=== PATIENT | male | born 1975 | race African-American/Black ===

== ENCOUNTER 2017-05-23 09:36 | Inpatient (IN) | payer MEDICAID ==
[~2017-05-23] VITALS: Ht 177.8 cm; Wt 40.8 kg
[2017-05-23 10:58] LABS: HEMATOCRIT 44.1 % (42.0-52.0); HEMOGLOBIN 14.2 G/DL (14.2-18.0); MEAN CORPUSCULAR VOLUME 92 FL (80-99); RED BLOOD COUNT 4.79 M/UL (4.70-6.10); RED CELL DISTRIBUTION WIDTH 11.7 % (11.6-14.8); WHITE BLOOD COUNT 4.2 K/UL (4.8-10.8)
[2017-05-23 11:11] LABS: INR 1.1 (0.9-1.1)
[2017-05-23] MEDS ORDERED: Thiamine HCl 100 MG in D5W 55 ML IVPB SCH (11:15)
--- NOTE | 2017-05-23 11:24 | Diagnostic Imaging Report ---
Indication: Chest pain Technique: XRAY CHEST 1 V Comparison: None Findings: Cardiomediastinal silhouette is within normal limits. Extensive bilateral interstitial and airspace opacities are seen. There is no pneumothorax or obvious pleural effusion. Osseous structures demonstrate no acute abnormality. Impression: Extensive bilateral interstitial and airspace infiltrates. Inflammatory and typical and atypical infectious etiology should be considered. Clinical correlation recommended.
[2017-05-23 11:28] VITALS: BP 109/70
[2017-05-23] MEDS ORDERED: Thiamine HCl 100mg/ml 2 ml Inj ONE (11:34)
[2017-05-23] MEDS ORDERED: cefTRIAXone 1 GM in NS 55 ML IVPB ONE (12:00)
[2017-05-23] MEDS ORDERED: Azithromycin 500 MG in D5W 275 ML IVPB ONE (12:00)
[2017-05-23] MEDS ORDERED: Albuterol/Ipratropium 3ml neb HHN PRN (12:15)
[2017-05-23] MEDS ORDERED: Miralax 17gm pkt ORAL PRN (12:15)
[2017-05-23] MEDS ORDERED: Morphine Sulfate 4mg/ml Inj IVP PRN (12:15)
[2017-05-23 12:36] LABS: ANION GAP 4 mmol/L (5-15); BLOOD UREA NITROGEN 24 mg/dL (7-18); CALCIUM 7.6 MG/DL (8.5-10.1); CARBON DIOXIDE 32 MMOL/L (21-32); CHLORIDE 94 MMOL/L (98-107); CREATININE 0.8 MG/DL (0.55-1.30); POTASSIUM 3.5 MMOL/L (3.5-5.1); SODIUM 130 MMOL/L (136-145)
[2017-05-23 12:48] LABS: ALANINE AMINOTRANSFERASE 13 U/L (12-78); ALBUMIN/GLOBULIN RATIO 0.2 (1.0-2.7); ALKALINE PHOSPHATASE 75 U/L (46-116); ASPARTATE AMINO TRANSFERASE 44 U/L (15-37); BILIRUBIN,TOTAL 0.6 MG/DL (0.2-1.0); CREATINE KINASE 21 U/L (26-308)
[2017-05-23 13:15] LABS: PLATELET COUNT 228 K/UL (150-450)
[2017-05-23] MEDS ORDERED: Azithromycin 500mg Inj IV ONE (13:20)
--- NOTE | 2017-05-23 13:22 | Emergency Room Report ---
History of Present Illness General Chief Complaint: Generalized Weakness Source: Patient Present Illness HPI The patient presents with weakness, weight loss, cough, diarrhea. This began 3 weeks ago after eating "bad spaghetti" He had watery diarrhea which is just starting to get better. He has lost 7 lbs in this time. His appetite is poor. He denies chills, but felt feverish. He has had a mildly productive cough, some greyish sputum. No hemoptysis. He was evaluated at [place] last week and got 2 bags of IV fluids and discharged. He believes labs were done. No medications were prescribed and he believes labs were "normal". He was drinking heavily before this illness but stopped 2 weeks ago. No seizures, tremor. He also smokes. Unemployed and no travel, unusual foods or ill contacts. HIV tested 1 year ago and was "negative". He has had muscle aches - thighs mostly, radiating to body. Pain rated at 5/10 , aching, cramps. Increased when trying to stand or walk. Although he has family h/o diabetes, he has not been diagnosed. Some polyuria. 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 Reviewed Nursing Documentation: PMH: Agreed, PSxH: Agreed Nursing Documentation-PM Past Medical History: No Stated History Review of Systems All Other Systems: negative except mentioned in HPI Physical Exam Vital Signs Date Time Temp Pulse Resp B/P (MAP) Pulse Ox O2 Delivery O2 Flow Rate FiO2 05/23/17 09:46 98.6 100 19 109/70 96 Room Air Sp02 EP Interpretation: reviewed, normal General Appearance: no apparent distress, alert, GCS 15, non-toxic, cachetic, thin Head: normocephalic Eyes: bilateral eye normal inspection, bilateral eye PERRL ENT: moist mucus membranes Neck: supple Respiratory: lungs clear, normal breath sounds Cardiovascular #1: regular rate, rhythm Cardiovascular #2: 2+ radial (R) Gastrointestinal: normal inspection, normal bowel sounds, non tender, no mass, non-distended, scaphoid Musculoskeletal: back normal, gait/station normal, normal range of motion, tender - thighs Neurologic: alert, oriented x3, 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 Psychiatric: anxious Skin: normal inspection, warm/dry Medical Decision Making Diagnostic Impression: Primary Impression: Atypical pneumonia Additional Impressions: Protein calorie malnutrition Qualified Codes: E44.0 - Moderate protein-calorie malnutrition Diarrhea Qualified Codes: R19.7 - Diarrhea, unspecified ER Course Patient presents with 3 weeks of illness with multiple symptoms, mainly diarrhea , weight loss and cough. DDx: diabetes, sepsis, electrolyte abnormalities, HIV , TB, polymyositis, UTI, bronchitis, viral GItis, alcohol withdrawal amongst others. Evaluation with labs, CXR. Treatment with IV hydration and thiamine. Labs with low WBC, sodium slightly low. Albumen very low with corresponding low calcium. CXR with extensive bilateral infiltrates - atypical - possible miliary. Placed in isolation. Antibiotics begun. Concern over several etiologies of atypical pneumonia with possible immune suppression. Patient admitted med Dr. Braun - resp isolation. Laboratory Tests Test 05/23/17 10:10 05/23/17 11:42 05/23/17 11:45 White Blood Count 4.2 K/UL (4.8-10.8) L Red Blood Count 4.79 M/UL (4.70-6.10) Hemoglobin 14.2 G/DL (14.2-18.0) Hematocrit 44.1 % (42.0-52.0) Mean Corpuscular Volume 92 FL (80-99) Mean Corpuscular Hemoglobin 29.7 PG (27.0-31.0) Mean Corpuscular Hemoglobin Concent 32.3 G/DL (32.0-36.0) Red Cell Distribution Width 11.7 % (11.6-14.8) Platelet Count 228 K/UL (150-450) Mean Platelet Volume 9.0 FL (6.5-10.1) Neutrophils (%) (Auto) % (45.0-75.0) Lymphocytes (%) (Auto) % (20.0-45.0) Monocytes (%) (Auto) % (1.0-10.0) Eosinophils (%) (Auto) % (0.0-3.0) Basophils (%) (Auto) % (0.0-2.0) Differential Total Cells Counted 100 Neutrophils % (Manual) 75 % (45-75) Lymphocytes % (Manual) 21 % (20-45) Monocytes % (Manual) 3 % (1-10) Eosinophils % (Manual) 0 % (0-3) Basophils % (Manual) 1 % (0-2) Band Neutrophils 0 % (0-8) Platelet Estimate Adequate Platelet Morphology Normal Red Blood Cell Morphology Normal Erythrocyte Sedimentation Rate 30 MM/HR (0-15) H Prothrombin Time 11.5 SEC (9.30-11.50) Prothrombin Time INR 1.1 (0.9-1.1) PTT 29 SEC (23-33) Sodium Level 130 MMOL/L (136-145) L Potassium Level 3.5 MMOL/L (3.5-5.1) Chloride Level 94 MMOL/L (98-107) L Carbon Dioxide Level 32 MMOL/L (21-32) Anion Gap 4 mmol/L (5-15) L Blood Urea Nitrogen 24 mg/dL (7-18) H Creatinine 0.8 MG/DL (0.55-1.30) Estimate Glomerular Filtration Rate > 60 mL/min (>60) Glucose Level 91 MG/DL (74-106) Lactic Acid Level 2.50 mmol/L (0.66-2.22) H 1.90 mmol/L (0.66-2.22) Calcium Level 7.6 MG/DL (8.5-10.1) L Total Bilirubin 0.6 MG/DL (0.2-1.0) Aspartate Amino Transferase (AST) 44 U/L (15-37) H Alanine Aminotransferase (ALT) 13 U/L (12-78) Alkaline Phosphatase 75 U/L (46-116) Total Creatine Kinase 21 U/L (26-308) L C-Reactive Protein, Quantitative 13.2 mg/dL (0.00-0.90) H Pro-B-Type Natriuretic Peptide 141 pg/mL (0-125) H Total Protein 7.1 G/DL (6.4-8.2) Albumin 1.0 G/DL (3.4-5.0) L Globulin 6.1 g/dL Albumin/Globulin Ratio 0.2 (1.0-2.7) L Thyroid Stimulating Hormone (TSH) 2.151 uiU/mL (0.358-3.740) Salicylates Level 0.6 ug/mL (2.8-20) L Acetaminophen Level Pending Serum Alcohol < 3 mg/dL Lactate Dehydrogenase 466 U/L (81-234) H Troponin I 0.004 ng/mL (0.000-0.056) EKG Diagnostic Results Rate: normal Rhythm: NSR ST Segments: no acute changes Rhythm Strip Diag. Results EP Interpretation: yes Rhythm: NSR, no PVC's, no ectopy Chest X-Ray Diagnostic Results Chest X-Ray Diagnostic Results : Chest X-Ray Ordered: Yes # of Views/Limited/Complete: 1 View Indication: Other Interpretation: no effusion, no pneumothorax, other - bilateral infiltrates Impression: Other Electronically Signed by: Electronically signed by Gen Munson MD Last Vital Signs Date Time Temp Pulse Resp B/P (MAP) Pulse Ox O2 Delivery O2 Flow Rate FiO2 05/23/17 20:00 98.6 129 20 112/61 90 05/23/17 18:32 Room Air Status: improved Disposition: ADMITTED INPATIENT Condition: Serious Scripts No Active Prescriptions or Reported Meds Referrals: NOT CHOSEN KENRICK/,REFERRING (PCP) Gen Munson M.D. May 23, 2017 13:22
[2017-05-23] MEDS ORDERED: PPD Tuberculin Skin Test 5TU IDERMAL ONE (16:00)
[2017-05-23] MEDS ORDERED: Vancomycin 1 GM in D5W 275 ML IVPB ONE (16:00)
[2017-05-23 16:15] VITALS: BP 138/87
[2017-05-23 20:00] VITALS: BP 112/61
[2017-05-23] MEDS: Heparin 5000 units/ml inj SUBQ SCH (21:00)
[2017-05-23] MEDS: Cefepime HCl 2 GM in D5W 110 ML IV SCH (21:41)
--- NOTE | 2017-05-23 22:50 | History and Physical ---
History of Present Illness General Date patient seen: May 24, 2017 Reason for Hospitalization: Generalized Weakness Present Illness HPI 41 year old male without any significant pmhx presented with weakness, weight loss, cough, diarrhea. This began 3 weeks ago after eating "bad spaghetti" He had watery diarrhea which is just starting to get better. He has lost 7 lbs in this time. He has had a mildly productive cough, some greyish sputum. No hemoptysis. He was drinking heavily before this illness but stopped 2 weeks ago. He had extensive interstitial infiltrate on CXR and was put on Isolation by ER physician. Allergies: Coded Allergies: No Known Allergies (Unverified , 05/23/17) Medication History No Active Prescriptions or Reported Meds Patient History Healthcare decision maker N Resuscitation status Full Code Advanced Directive on File Review of Systems Constitutional: Reports: malaise, weakness Respiratory: Reports: shortness of breath, BYRNE Gastrointestinal: Reports: no symptoms Physical Exam General Appearance: cachetic Lines, tubes and drains: peripheral HEENT: normocephalic, atraumatic Neck: non-tender, normal alignment Respiratory/Chest: chest wall non-tender, lungs clear Cardiovascular/Chest: normal peripheral pulses, normal rate Abdomen: normal bowel sounds Genitourinary/Rectal: normal genital exam Last 24 Hour Vital Signs Date Time Temp Pulse Resp B/P (MAP) Pulse Ox O2 Delivery O2 Flow Rate FiO2 05/23/17 20:00 98.6 129 20 112/61 90 05/23/17 18:32 102 18 Room Air 05/23/17 16:15 99.9 102 20 138/87 93 Room Air 05/23/17 14:28 98.6 106 19 109/70 96 Room Air 05/23/17 11:28 98.6 106 19 109/70 96 Room Air 05/23/17 09:46 98.6 100 19 109/70 96 Room Air Intake and Output 05/23/17 05/24/17 19:00 07:00 Intake Total 60 ml Balance 60 ml Intake Oral 60 ml # Bowel Movements 2 Laboratory Tests Test 05/23/17 10:10 05/23/17 11:42 05/23/17 11:45 05/23/17 17:40 White Blood Count 4.2 K/UL (4.8-10.8) L Red Blood Count 4.79 M/UL (4.70-6.10) Hemoglobin 14.2 G/DL (14.2-18.0) Hematocrit 44.1 % (42.0-52.0) Mean Corpuscular Volume 92 FL (80-99) Mean Corpuscular Hemoglobin 29.7 PG (27.0-31.0) Mean Corpuscular Hemoglobin Concent 32.3 G/DL (32.0-36.0) Red Cell Distribution Width 11.7 % (11.6-14.8) Platelet Count 228 K/UL (150-450) Mean Platelet Volume 9.0 FL (6.5-10.1) Neutrophils (%) (Auto) % (45.0-75.0) Lymphocytes (%) (Auto) % (20.0-45.0) Monocytes (%) (Auto) % (1.0-10.0) Eosinophils (%) (Auto) % (0.0-3.0) Basophils (%) (Auto) % (0.0-2.0) Differential Total Cells Counted 100 Neutrophils % (Manual) 75 % (45-75) Lymphocytes % (Manual) 21 % (20-45) Monocytes % (Manual) 3 % (1-10) Eosinophils % (Manual) 0 % (0-3) Basophils % (Manual) 1 % (0-2) Band Neutrophils 0 % (0-8) Platelet Estimate Adequate Platelet Morphology Normal Red Blood Cell Morphology Normal Erythrocyte Sedimentation Rate 30 MM/HR (0-15) H Prothrombin Time 11.5 SEC (9.30-11.50) Prothromb Time International Ratio 1.1 (0.9-1.1) Activated Partial Thromboplast Time 29 SEC (23-33) Sodium Level 130 MMOL/L (136-145) L Potassium Level 3.5 MMOL/L (3.5-5.1) Chloride Level 94 MMOL/L (98-107) L Carbon Dioxide Level 32 MMOL/L (21-32) Anion Gap 4 mmol/L (5-15) L Blood Urea Nitrogen 24 mg/dL (7-18) H Creatinine 0.8 MG/DL (0.55-1.30) Estimat Glomerular Filtration Rate > 60 mL/min (>60) Glucose Level 91 MG/DL (74-106) Lactic Acid Level 2.50 mmol/L (0.66-2.22) H 1.90 mmol/L (0.66-2.22) Calcium Level 7.6 MG/DL (8.5-10.1) L Total Bilirubin 0.6 MG/DL (0.2-1.0) Aspartate Amino Transf (AST/SGOT) 44 U/L (15-37) H Alanine Aminotransferase (ALT/SGPT) 13 U/L (12-78) Alkaline Phosphatase 75 U/L (46-116) Total Creatine Kinase 21 U/L (26-308) L C-Reactive Protein, Quantitative 13.2 mg/dL (0.00-0.90) H Pro-B-Type Natriuretic Peptide 141 pg/mL (0-125) H Total Protein 7.1 G/DL (6.4-8.2) Albumin 1.0 G/DL (3.4-5.0) L Globulin 6.1 g/dL Albumin/Globulin Ratio 0.2 (1.0-2.7) L Thyroid Stimulating Hormone (TSH) 2.151 uiU/mL (0.358-3.740) Salicylates Level 0.6 ug/mL (2.8-20) L Acetaminophen Level < 2 MCG/ML (10-30) L Serum Alcohol < 3 mg/dL Lactate Dehydrogenase 466 U/L (81-234) H Troponin I 0.004 ng/mL (0.000-0.056) Blastomyces Ab Immunodiffusion Pending Cryptococcus Antigen Pending Histoplasma Mycelial Antibody Pending Histoplasma Antibody w Mycelial Ag Pending Histoplasma Antibody with Yeast Ag Pending Height (Feet): 5 Height (Inches): 10.00 Weight (Pounds): 90 Medications Current Medications Medications (Trade) Dose Ordered Sig/Anna Route PRN Reason Start Time Stop Time Status Last Admin Dose Admin Acetaminophen (Tylenol) 650 mg Q4H PRN ORAL T>100.5 05/23/17 12:15 06/22/17 12:14 Albuterol/ Ipratropium (Albuterol/ Ipratropium) 3 ml Q4H PRN HHN Shortness of Breath 05/23/17 12:15 05/28/17 12:14 Cefepime HCl 2 gm/ Dextrose 110 ml @ 220 mls/hr EVERY 12 HOURS IV 05/23/17 20:00 05/30/17 19:59 05/23/17 21:41 Dextrose (Dextrose 50%) STAT PRN IV Hypoglycemia 05/23/17 12:15 06/22/17 12:14 Heparin Sodium (Porcine) (Heparin 5000 units/ml) 5,000 units EVERY 12 HOURS SUBQ 05/23/17 21:00 06/22/17 20:59 Morphine Sulfate (Morphine Sulfate) 2 mg Q4H PRN IVP Severe Pain (Pain Scale 7-10) 05/23/17 12:15 05/30/17 12:14 Ondansetron HCl (Zofran) 4 mg Q6H PRN IVP Nausea & Vomiting 05/23/17 12:15 06/22/17 12:14 Polyethylene Glycol (Miralax) 17 gm DAILYPRN PRN ORAL Constipation 05/23/17 12:15 06/22/17 12:14 Sodium Chloride 1,000 ml @ 300 mls/hr Q3H20M IV 05/23/17 10:15 06/22/17 10:14 05/23/17 20:15 Vancomycin HCl (Vanco rx to dose) 1 ea DAILY PRN MISC . 05/23/17 14:30 06/22/17 14:29 Vancomycin/Sodium Chloride 250 ml @ 166.667 mls/hr Q12HR@0400,1600 IVPB 05/24/17 04:00 05/29/17 03:59 Assessment/Plan Problem List: (1) Atypical pneumonia ICD Codes: J18.9 - Pneumonia, unspecified organism SNOMED: 571498124 (2) Severe protein-calorie malnutrition ICD Codes: E43 - Unspecified severe protein-calorie malnutrition SNOMED: 083343668 (3) Interstitial lung disease ICD Codes: J84.9 - Interstitial pulmonary disease, unspecified SNOMED: 789430060 (4) Diarrhea ICD Codes: R19.7 - Diarrhea, unspecified SNOMED: 21594367 Qualifiers: Qualified Codes: R19.7 - Diarrhea, unspecified Assessment/Plan check sputum IV abx ID evaluation check HIV status. TAMMIE MARY May 23, 2017 22:50
[2017-05-24] VITALS: BP 123/79
[2017-05-24 04:00] VITALS: BP 114/66
[2017-05-24] MEDS: Vancomycin 750mg/NS 250ml IVPB SCH ×2 (04:16→16:00)
[2017-05-24 08:07] LABS: EOSINOPHILS % (AUTO) 0.4 % (0.0-3.0); HEMATOCRIT 29.3 % (42.0-52.0); HEMOGLOBIN 10.4 G/DL (14.2-18.0); LYMPHOCYTES % (AUTO) 8.4 % (20.0-45.0); MEAN CORPUSCULAR VOLUME 91 FL (80-99); MONOCYTES % (AUTO) 3.3 % (1.0-10.0); NEUTROPHILS % (AUTO) 83.9 % (45.0-75.0); PLATELET COUNT 129 K/UL (150-450); RED BLOOD COUNT 3.22 M/UL (4.70-6.10); WHITE BLOOD COUNT 5.8 K/UL (4.8-10.8)
[2017-05-24 08:15] VITALS: BP 130/85
[2017-05-24 08:30] LABS: ALANINE AMINOTRANSFERASE 6 U/L (12-78); ALBUMIN 0.8 G/DL (3.4-5.0); ALBUMIN/GLOBULIN RATIO 0.1 (1.0-2.7); ALKALINE PHOSPHATASE 66 U/L (46-116); ANION GAP 7 mmol/L (5-15); ASPARTATE AMINO TRANSFERASE 48 U/L (15-37); BILIRUBIN,TOTAL 0.4 MG/DL (0.2-1.0); BLOOD UREA NITROGEN 18 mg/dL (7-18); CALCIUM 7.6 MG/DL (8.5-10.1); CARBON DIOXIDE 25 MMOL/L (21-32); CHLORIDE 100 MMOL/L (98-107); CREATININE 0.8 MG/DL (0.55-1.30); PHOSPHORUS 2.5 MG/DL (2.5-4.9); POTASSIUM 3.1 MMOL/L (3.5-5.1); SODIUM 132 MMOL/L (136-145)
[2017-05-24] MEDS: Heparin 5000 units/ml inj SUBQ SCH ×2 (09:00→21:00)
[2017-05-24] MEDS ORDERED: NS 500ML ONE (10:01)
[2017-05-24] MEDS ORDERED: Tubing IV Secondary IV ONE (10:01)
[2017-05-24] MEDS: Cefepime HCl 2 GM in D5W 110 ML IV SCH (10:17)
--- NOTE | 2017-05-24 10:19 | Diagnostic Imaging Report ---
Indication: DYSPNEA Technique: XRAY CHEST 1 V. Comparison: 05/23/17 Findings: The cardiomediastinal silhouette is unchanged. Diffuse bilateral mixed alveolar and interstitial infiltrates are again seen, unchanged. No pleural fluid. Impression: Diffuse bilateral mixed infiltrates. No significant change from prior examination.
[2017-05-24 12:03] VITALS: BP 112/70
[2017-05-24 15:14] LABS: APPEARANCE,URINE SLIGHTLY CLOUDY; BILIRUBIN, URINE NEGATIVE (NEGATIVE); COLOR,URINE AMBER; GLUCOSE, URINE (UA) NEGATIVE (NEGATIVE); KETONES,URINE NEGATIVE (NEGATIVE); LEUKOCYTE ESTERASE ,URINE 1+ (NEGATIVE); NITRITE,URINE NEGATIVE (NEGATIVE); PH,URINE 6 (4.5-8.0); PROTEIN,URINE 2+ (NEGATIVE); UROBILINOGEN,URINE NORMAL MG/DL (0.0-1.0)
[2017-05-24 16:13] VITALS: BP 123/80
[2017-05-24 20:00] VITALS: BP 125/77
[2017-05-24] MEDS: Cefepime HCl 2 GM in D5W 55 ML IV SCH (21:25)
[2017-05-25] VITALS: BP 119/76
[2017-05-25 03:37] LABS: HEMATOCRIT 30.2 % (42.0-52.0); HEMOGLOBIN 10.3 G/DL (14.2-18.0); MEAN CORPUSCULAR VOLUME 91 FL (80-99); PLATELET COUNT 290 K/UL (150-450); RED BLOOD COUNT 3.33 M/UL (4.70-6.10); RED CELL DISTRIBUTION WIDTH 12.1 % (11.6-14.8); WHITE BLOOD COUNT 6.1 K/UL (4.8-10.8)
[2017-05-25 04:00] VITALS: BP 105/64
[2017-05-25 04:24] LABS: INR 1.3 (0.9-1.1)
[2017-05-25 04:28] LABS: ALANINE AMINOTRANSFERASE 10 U/L (12-78); ALBUMIN 0.8 G/DL (3.4-5.0); ALBUMIN/GLOBULIN RATIO 0.1 (1.0-2.7); ALKALINE PHOSPHATASE 68 U/L (46-116); ANION GAP 5 mmol/L (5-15); ASPARTATE AMINO TRANSFERASE 48 U/L (15-37); BILIRUBIN,TOTAL 0.5 MG/DL (0.2-1.0); BLOOD UREA NITROGEN 20 mg/dL (7-18); CALCIUM 8.2 MG/DL (8.5-10.1); CARBON DIOXIDE 29 MMOL/L (21-32); CHLORIDE 99 MMOL/L (98-107); CREATININE 0.9 MG/DL (0.55-1.30); SODIUM 133 MMOL/L (136-145)
[2017-05-25 04:48] LABS: % IRON SATURATION 17 % (15-50); IRON 13 ug/dL (50-175); LACTATE DEHYDROGENASE 572 U/L (81-234); TOTAL IRON BINDING CAPACITY 77 ug/dL (250-450)
[2017-05-25] MEDS: Vancomycin 750mg/NS 250ml IVPB SCH ×2 (05:45→17:55)
[2017-05-25 08:15] VITALS: BP 100/64
--- NOTE | 2017-05-25 10:12 | Diagnostic Imaging Report ---
Clinical Indication: MASS, weakness and pain, weight loss, dyspnea Technique: IV administration nonionic contrast. Spiral acquisition obtained through the chest. Multiplanar reconstructions generated. Total dose length product 413 mGycm. CTDIvol(s) 11 mGy. Dose reduction achieved using automated exposure control Comparison: Reference made to plain radiographs of earlier the same day Findings: There is extensive pulmonary parenchymal disease, consisting of combination of diffuse groundglass and reticular opacities. There is also a component of nodularity. Much of the bilateral lower lobe and right middle lobe interstitial component by delete that delete that has a honeycomb appearance This process is diffuse throughout both lungs, with only minimal areas of spared normal parenchyma. No pleural effusion demonstrated. The heart size is normal. No mediastinal or hilar mass or adenopathy demonstrated. No pericardial effusion. Normal esophagus. Unremarkable thyroid. No axillary or chest wall mass or adenopathy. There is diffuse edema of the subcutaneous and to lesser extent the mediastinal fat. The bones are unremarkable. The included upper abdominal viscera are unremarkable. Impression: Extensive interstitial and airspace parenchymal disease, as described. Differential considerations are multiple, including infectious and noninfectious inflammatory processes, pulmonary edema. There is a suggestion of honeycomb appearance of much of the lower lobe and right middle lobe interstitial component, raising possibility that there are is a significant chronic component to this. Edema of the subcutaneous fat raises possibility of a significant edematous component. Correlation with clinical history and findings is recommended. Any prior imaging studies that may have been performed elsewhere may be useful for comparison The CT scanner at [facility] is accredited by the [employer] and the scans are performed using protocols designed to limit radiation exposure to as low as reasonably achievable to attain images of sufficient resolution adequate for diagnostic evaluation.
[2017-05-25] MEDS: Cefepime HCl 2 GM in D5W 55 ML IV SCH ×2 (11:11→21:05)
[2017-05-25] MEDS: Heparin 5000 units/ml inj SUBQ SCH ×2 (11:27→21:00)
--- NOTE | 2017-05-25 11:49 | Diagnostic Imaging Report ---
Indication: DYSPNEA Technique: One view of the chest Comparison: 05/24/2017 Findings: Again demonstrated is diffuse interstitial and airspace disease with nodularity and honeycombing, appearing unchanged. Pleural spaces are clear. Heart size is normal Impression: Unchanged, over one day, findings as above.
[2017-05-25 12:15] VITALS: BP 103/69
--- NOTE | 2017-05-25 14:45 | Consultation ---
Consult Note Consult Note Dic # [id number] AMARIS BRIGGS M.D. May 25, 2017 14:45
[2017-05-25 16:18] VITALS: BP 122/91
[2017-05-25] MEDS: metroNIDAZOLE 250mg tab ORAL SCH (16:27)
[2017-05-25] MEDS: Azithromycin 500 MG in D5W 275 ML IV SCH (16:39)
--- NOTE | 2017-05-25 16:55 | Pulmonology Progress Note ---
Assessment/Plan Problems: (1) Atypical pneumonia (2) Severe protein-calorie malnutrition (3) Interstitial lung disease (4) Diarrhea Assessment/Plan PPD pending HIV negative Id note appreciated Zithromax was added to cover atypical pneumonia ( very likely) waldo considering the diarrhea check stool Subjective ROS Limited/Unobtainable: No Constitutional: Reports: no symptoms HEENT: Repors: no symptoms Allergies: Coded Allergies: No Known Allergies (Unverified , 05/23/17) Objective Last 24 Hour Vital Signs Date Time Temp Pulse Resp B/P (MAP) Pulse Ox O2 Delivery O2 Flow Rate FiO2 05/25/17 16:18 98.4 81 19 122/91 96 Room Air 05/25/17 14:13 75 18 Room Air 21 05/25/17 12:15 97.5 92 21 103/69 94 Room Air 05/25/17 08:15 97.7 86 23 100/64 97 Room Air 05/25/17 04:00 97.5 90 21 105/64 92 05/25/17 02:00 97.5 05/25/17 00:00 101.8 105 21 119/76 92 05/24/17 20:00 Room Air 05/24/17 20:00 97.5 99 20 125/77 100 05/24/17 19:40 87 20 Room Air 21 Intake and Output 05/25/17 05/26/17 19:00 07:00 Intake Total 360 ml Output Total 300 ml Balance 60 ml Intake Oral 360 ml Output Urine Total 300 ml # Voids 1 General Appearance: cachetic HEENT: normocephalic, atraumatic Respiratory/Chest: chest wall non-tender, lungs clear Cardiovascular: normal peripheral pulses, regular rhythm Abdomen: soft, non tender, no organomegaly Extremities: no cyanosis Skin: no rash Microbiology Date/Time Source Procedure Growth Status 05/23/17 18:45 Blood Blood Culture - Preliminary NO GROWTH AFTER 24 HOURS Resulted 05/23/17 18:30 Blood Blood Culture - Preliminary NO GROWTH AFTER 24 HOURS Resulted 05/23/17 15:10 Sputum Gram Stain - Final Resulted 05/23/17 15:10 Sputum Culture - Preliminary Staphylococcus Aureus Usual Upper Respiratory Beatrice Resulted 05/23/17 17:00 Stool Clostridium difficile Toxin Assay - Final Complete 05/24/17 13:15 Urine,Clean Catch Urine Culture - Preliminary NO GROWTH Resulted Laboratory Tests 05/25/17 03:25: White Blood Count 6.1, Red Blood Count 3.33L, Hemoglobin 10.3L, Hematocrit 30.2L , Mean Corpuscular Volume 91, Mean Corpuscular Hemoglobin 30.8, Mean Corpuscular Hemoglobin Concent 34.0, Red Cell Distribution Width 12.1, Platelet Count 290#, Mean Platelet Volume 6.2L, Neutrophils (%) (Auto) , Lymphocytes (%) (Auto) , Monocytes (%) (Auto) , Eosinophils (%) (Auto) , Basophils (%) (Auto) , Differential Total Cells Counted 100, Neutrophils % (Manual) 82H, Lymphocytes % (Manual) 11L, Monocytes % (Manual) 7, Eosinophils % (Manual) 0, Basophils % ( Manual) 0, Band Neutrophils 0, Platelet Estimate Adequate, Platelet Morphology , Clumped Platelets 1+, Hypochromasia 1+, Erythrocyte Sedimentation Rate 112H, Reticulocyte Count 0.5, Prothrombin Time 13.7H, Prothromb Time International Ratio 1.3H, Activated Partial Thromboplast Time 38H, Sodium Level 133L, Potassium Level 3.0L, Chloride Level 99, Carbon Dioxide Level 29, Anion Gap 5, Blood Urea Nitrogen 20H, Creatinine 0.9, Estimat Glomerular Filtration Rate > 60 , Glucose Level 79, Calcium Level 8.2L, Iron Level 13L, Total Iron Binding Capacity 77L, Percent Iron Saturation 17, Unsaturated Iron Binding 64L, Total Bilirubin 0.5, Aspartate Amino Transf (AST/SGOT) 48H, Alanine Aminotransferase ( ALT/SGPT) 10L, Alkaline Phosphatase 68, Lactate Dehydrogenase 572H, Pro-B-Type Natriuretic Peptide 1685H, Total Protein 7.3, Albumin 0.8L, Globulin 6.5, Albumin/Globulin Ratio 0.1L, Vitamin B12 Level 713, Folate 3.4L, Vancomycin Level Trough 3.7L Current Medications Medications (Trade) Dose Ordered Sig/Anna Route PRN Reason Start Time Stop Time Status Last Admin Dose Admin Acetaminophen (Tylenol) 650 mg Q4H PRN ORAL T>100.5 05/23/17 12:15 06/22/17 12:14 05/25/17 01:01 Albuterol/ Ipratropium (Albuterol/ Ipratropium) 3 ml Q4H PRN HHN Shortness of Breath 05/23/17 12:15 05/28/17 12:14 Azithromycin 500 mg/Dextrose 275 ml @ 275 mls/hr Q24HRS IV 05/25/17 16:00 05/31/17 16:59 05/25/17 16:39 Cefepime HCl 2 gm/ Dextrose 55 ml @ 110 mls/hr EVERY 12 HOURS IV 05/24/17 21:00 05/31/17 20:59 05/25/17 11:11 Dextrose (Dextrose 50%) STAT PRN IV Hypoglycemia 05/23/17 12:15 06/22/17 12:14 Heparin Sodium (Porcine) (Heparin 5000 units/ml) 5,000 units EVERY 12 HOURS SUBQ 05/23/17 21:00 06/22/17 20:59 05/25/17 11:27 Metronidazole (Flagyl) 250 mg Q6HR ORAL 05/25/17 16:00 06/01/17 15:59 05/25/17 16:27 Morphine Sulfate (Morphine Sulfate) 2 mg Q4H PRN IVP Severe Pain (Pain Scale 7-10) 05/23/17 12:15 05/30/17 12:14 Ondansetron HCl (Zofran) 4 mg Q6H PRN IVP Nausea & Vomiting 05/23/17 12:15 06/22/17 12:14 Polyethylene Glycol (Miralax) 17 gm DAILYPRN PRN ORAL Constipation 05/23/17 12:15 06/22/17 12:14 Vancomycin HCl (Vanco rx to dose) 1 ea DAILY PRN MISC . 05/23/17 14:30 06/22/17 14:29 Vancomycin/Sodium Chloride 250 ml @ 166.667 mls/hr Q12HR@0400,1600 IVPB 05/24/17 04:00 05/29/17 03:59 05/25/17 05:45 TAMMIE MARY May 25, 2017 16:55
[2017-05-25 20:00] VITALS: BP 133/81
[2017-05-26] VITALS: BP 127/79
[2017-05-26] MEDS: Vancomycin 750mg/NS 250ml IVPB SCH ×2 (03:58→18:51)
[2017-05-26] MEDS: metroNIDAZOLE 250mg tab ORAL SCH ×5 (03:59→23:38)
[2017-05-26 04:00] VITALS: BP 115/70
--- NOTE | 2017-05-26 04:00 | Consultation ---
DATE OF CONSULTATION: 05/25/2017 INFECTIOUS DISEASES CONSULTATION REFERRING PHYSICIAN: Kobe Braun M.D. REASON FOR CONSULTATION: Evaluation of the patient for pneumonia, antibiotic management. HISTORY OF PRESENT ILLNESS: The patient is a 41-year-old male with apparently no prior past medical history, was admitted to this medical center with a chief complaint of diarrhea x3 weeks. Also, the patient has some shortness of breath, mild cough. He has been complaining of losing about 50 pounds in the last 3 weeks due to lack of appetite. The patient currently is admitted to an isolation room to rule out tuberculosis. Infectious Diseases consultation has been requested for further evaluation of the patient's antibiotic management. PAST MEDICAL HISTORY: None. PAST SURGICAL HISTORY: None. MEDICATIONS: Vancomycin and cefepime. ALLERGIES: None. FAMILY HISTORY: Not contributing. The patient lives by himself. SOCIAL HISTORY: The patient smokes cigarettes and marijuana. Also, the patient used to drink alcohol heavily up to three months ago. PHYSICAL EXAMINATION: VITAL SIGNS: T-max 101.8 degrees, pulse 86, respiratory rate 18, and blood pressure 102/69. HEENT: No pale conjunctivae. No icterus. NECK: No lymphadenopathy. CHEST: Clear. Mild transudative lungs. HEART: S1 and S2. ABDOMEN: Soft. Nontender. EXTREMITIES: No cyanosis at this time. NEUROLOGIC: Awake. LABORATORY AND DIAGNOSTIC DATA: White blood cells 6, hemoglobin 10, and platelets 290. UA unremarkable. BUN 20 and creatinine 0.6. Liver function tests unremarkable except AST of 48. CRP 13. ESR 112. Electrolytes is pending. HIV is negative. Sputum culture is growing normal lebron and Staphylococcus aureus. Stool for C. difficile negative. Blood culture no growth. Urine culture is pending. CT of the chest parenchymal disease. ASSESSMENT: The patient is a 41-year-old male with 1. Weight loss. 2. Fever. 3. Pneumonia. We will follow the etiology, atypical mycobacteria (TB is possible, less likely). Sputum culture is growing Staphylococcus aureus. 4. Human immunodeficiency virus test negative. 5. Chronic diarrhea? pancreatic insufficiency due to chronic alcohol abuse. PLAN: 1. We will continue the patient on vancomycin, cefepime, Zithromax and Flagyl. 2. Monitor CBC. 3. Monitor BMP. 4. Monitor cultures (blood, sputum, urine, stool). 5. Stool for ova and parasite. 6. 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 7. We will follow serology ( histo and blastomycosis). 8. Based on the patient's clinical status and laboratories, we will do further recommendation. 9. Recommend GI evaluation for the patient's chronic diarrhea. Thank you, Dr. Braun, for allowing me to participate in the care of this patient. I will follow the patient with you during this hospitalization. Kirby Patel M.D. DR: STARR JOB#: [id number] CC:
[2017-05-26 08:23] VITALS: BP 113/68
[2017-05-26 08:41] LABS: HEMATOCRIT 31.6 % (42.0-52.0); MEAN CORPUSCULAR VOLUME 92 FL (80-99); PLATELET COUNT 297 K/UL (150-450); RED BLOOD COUNT 3.45 M/UL (4.70-6.10); WHITE BLOOD COUNT 5.4 K/UL (4.8-10.8)
[2017-05-26] MEDS: Cefepime HCl 2 GM in D5W 55 ML IV SCH ×2 (09:25→20:30)
[2017-05-26] MEDS: Heparin 5000 units/ml inj SUBQ SCH ×2 (09:43→20:31)
[2017-05-26 11:38] VITALS: BP 110/71
--- NOTE | 2017-05-26 15:40 | Infectious Diseases Prog Note ---
Assessment/Plan Assessment/Plan ASSESSMENT: The patient is a 41-year-old male with Weight loss. Fever. Pneumonia. . Sp Cx growing Staphylococcus RO fungal and atypical mycobacteria (TB is possible, less likely) aureus HIV negative Chronic diarrhea? pancreatic insufficiency due to chronic alcohol abuse PLAN: Cont the patient on vancomycin, cefepime d# 4, Zithromax and Flagyl d#2 Monitor CBC Monitor BMP. Monitor cultures (blood, sputum, urine, stool). Stool for ova and parasite. 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 Serology (coccidio , Crytp , histo and blastomycosis) Recommend GI evaluation for the patient's chronic diarrhea. Subjective Allergies: Coded Allergies: No Known Allergies (Unverified , 05/23/17) Subjective diarrhea better Objective Vital Signs Last 24 Hour Vital Signs Date Time Temp Pulse Resp B/P (MAP) Pulse Ox O2 Delivery O2 Flow Rate FiO2 05/26/17 11:38 97.9 89 20 110/71 97 Nasal Cannula 2.0 05/26/17 10:05 88 18 Room Air 21 05/26/17 08:23 97.7 100 19 113/68 90 Room Air 05/26/17 04:00 98.4 101 21 115/70 90 05/26/17 04:00 90 Room Air 05/26/17 00:00 99.5 96 20 127/79 92 05/26/17 00:00 92 Room Air 05/25/17 22:56 99.0 05/25/17 22:50 99.0 05/25/17 20:30 94 Nasal Cannula 2.0 05/25/17 20:00 101.5 104 20 133/81 90 05/25/17 19:05 82 20 Room Air 21 05/25/17 16:18 98.4 81 19 122/91 96 Room Air Height (Feet): 5 Height (Inches): 10.00 Weight (Pounds): 90 HEENT: anicteric Respiratory/Chest: normal breath sounds Cardiovascular: regular rhythm Abdomen: non distended Microbiology Date/Time Source Procedure Growth Status 05/23/17 18:45 Blood Blood Culture - Preliminary NO GROWTH AFTER 48 HOURS Resulted 05/23/17 18:30 Blood Blood Culture - Preliminary NO GROWTH AFTER 48 HOURS Resulted 05/25/17 06:30 Sputum AFB Specimen Processing Tissue - Final Resulted 05/25/17 06:30 Sputum Acid Fast Bacilli Smear - Final Resulted 05/25/17 06:30 Sputum Acid Fast Bacilli Culture Pending Resulted 05/23/17 17:00 Stool Clostridium difficile Toxin Assay - Final Complete 05/24/17 13:15 Urine,Clean Catch Urine Culture - Preliminary NO GROWTH AFTER 24 HOURS Resulted Laboratory Tests Test 05/26/17 06:00 05/26/17 08:15 05/26/17 13:45 M. tuberculosis Complex DNA (PCR) Pending White Blood Count 5.4 K/UL (4.8-10.8) Red Blood Count 3.45 M/UL (4.70-6.10) L Hemoglobin 11.0 G/DL (14.2-18.0) L Hematocrit 31.6 % (42.0-52.0) L Mean Corpuscular Volume 92 FL (80-99) Mean Corpuscular Hemoglobin 31.8 PG (27.0-31.0) H Mean Corpuscular Hemoglobin Concent 34.7 G/DL (32.0-36.0) Red Cell Distribution Width 12.0 % (11.6-14.8) Platelet Count 297 K/UL (150-450) Mean Platelet Volume 6.6 FL (6.5-10.1) Neutrophils (%) (Auto) % (45.0-75.0) Lymphocytes (%) (Auto) % (20.0-45.0) Monocytes (%) (Auto) % (1.0-10.0) Eosinophils (%) (Auto) % (0.0-3.0) Basophils (%) (Auto) % (0.0-2.0) Differential Total Cells Counted 100 Neutrophils % (Manual) 92 % (45-75) H Lymphocytes % (Manual) 3 % (20-45) L Monocytes % (Manual) 4 % (1-10) Eosinophils % (Manual) 1 % (0-3) Basophils % (Manual) 0 % (0-2) Band Neutrophils 0 % (0-8) Toxic Granulation Platelet Estimate Adequate Platelet Morphology Normal Hypochromasia 1+ Stool Occult Blood Pending Current Medications Medications (Trade) Dose Ordered Sig/Anna Route PRN Reason Start Time Stop Time Status Last Admin Dose Admin Acetaminophen (Tylenol) 650 mg Q4H PRN ORAL T>100.5 05/23/17 12:15 06/22/17 12:14 05/25/17 21:39 Albuterol/ Ipratropium (Albuterol/ Ipratropium) 3 ml Q4H PRN HHN Shortness of Breath 05/23/17 12:15 05/28/17 12:14 Azithromycin 500 mg/Dextrose 275 ml @ 275 mls/hr Q24HRS IV 05/25/17 16:00 05/31/17 16:59 05/25/17 16:39 Cefepime HCl 2 gm/ Dextrose 55 ml @ 110 mls/hr EVERY 12 HOURS IV 05/24/17 21:00 05/31/17 20:59 05/26/17 09:25 Dextrose (Dextrose 50%) STAT PRN IV Hypoglycemia 05/23/17 12:15 06/22/17 12:14 Heparin Sodium (Porcine) (Heparin 5000 units/ml) 5,000 units EVERY 12 HOURS SUBQ 05/23/17 21:00 06/22/17 20:59 05/26/17 09:43 Metronidazole (Flagyl) 250 mg Q6HR ORAL 05/25/17 16:00 06/01/17 15:59 05/26/17 13:11 Morphine Sulfate (Morphine Sulfate) 2 mg Q4H PRN IVP Severe Pain (Pain Scale 7-10) 05/23/17 12:15 05/30/17 12:14 Ondansetron HCl (Zofran) 4 mg Q6H PRN IVP Nausea & Vomiting 05/23/17 12:15 06/22/17 12:14 Polyethylene Glycol (Miralax) 17 gm DAILYPRN PRN ORAL Constipation 05/23/17 12:15 06/22/17 12:14 Vancomycin HCl (Vanco rx to dose) 1 ea DAILY PRN MISC . 05/23/17 14:30 06/22/17 14:29 Vancomycin/Sodium Chloride 250 ml @ 166.667 mls/hr Q12HR@0400,1600 IVPB 05/24/17 04:00 05/29/17 03:59 05/26/17 03:58 AMARIS BRIGGS M.D. May 26, 2017 15:40
[2017-05-26 15:52] VITALS: BP 121/73
--- NOTE | 2017-05-26 16:32 | GI Initial Consult Note ---
History of Present Illness General Date patient seen: May 26, 2017 Time patient seen: 16:33 Reason for Hospitalization: Generalized Weakness Referring physician: TAMMIE BERNARDO Reason for Consultation: DIARRHEA Present Illness HPI The patient presents with weakness, weight loss, cough, diarrhea. This began 3 weeks ago after eating "bad spaghetti" He had watery diarrhea which is just starting to get better. He has lost 7 lbs in this time. His appetite is poor. He denies chills, but felt feverish. He has had a mildly productive cough, some greyish sputum. No hemoptysis. He was evaluated at [facility] last week and got 2 bags of IV fluids and discharged. He believes labs were done. No medications were prescribed and he believes labs were "normal". He was drinking heavily before this illness but stopped 2 weeks ago. No seizures, tremor. He also smokes. Unemployed and no travel, unusual foods or ill contacts. HIV tested 1 year ago and was "negative". He has had muscle aches - thighs mostly, radiating to body. Pain rated at 5/10 , aching, cramps. Increased when trying to stand or walk. Although he has family h/o diabetes, he has not been diagnosed. Some polyuria. GI consulted for diarrhea. HPI as noted above. Pt seen on floor, awake A&Ox4 NAD with no active s/sx of N/V. Stated he had episode of diarrhea this morning he stated was watery. No hematochezia or melena noted by the patient. States he had over 50 lbs weight loss vs 7 lbs which was stated in the ED report in the past 3 weeks. Presents today with anemia, transaminitis, and decreased folate levels. No leukocytosis. Cdiff negative. Unknown history of endoscopic / colonoscopies. 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 tuberculosis Complex DNA (PCR) Pending White Blood Count 5.4 K/UL (4.8-10.8) Red Blood Count 3.45 M/UL (4.70-6.10) L Hemoglobin 11.0 G/DL (14.2-18.0) L Hematocrit 31.6 % (42.0-52.0) L Mean Corpuscular Volume 92 FL (80-99) Mean Corpuscular Hemoglobin 31.8 PG (27.0-31.0) H Mean Corpuscular Hemoglobin Concent 34.7 G/DL (32.0-36.0) Red Cell Distribution Width 12.0 % (11.6-14.8) Platelet Count 297 K/UL (150-450) Mean Platelet Volume 6.6 FL (6.5-10.1) Neutrophils (%) (Auto) % (45.0-75.0) Lymphocytes (%) (Auto) % (20.0-45.0) Monocytes (%) (Auto) % (1.0-10.0) Eosinophils (%) (Auto) % (0.0-3.0) Basophils (%) (Auto) % (0.0-2.0) Differential Total Cells Counted 100 Neutrophils % (Manual) 92 % (45-75) H Lymphocytes % (Manual) 3 % (20-45) L Monocytes % (Manual) 4 % (1-10) Eosinophils % (Manual) 1 % (0-3) Basophils % (Manual) 0 % (0-2) Band Neutrophils 0 % (0-8) Toxic Granulation Platelet Estimate Adequate Platelet Morphology Normal Hypochromasia 1+ Stool Occult Blood Pending Vancomycin Level Trough 13.2 ug/mL (5.0-12.0) H General Appearance: well appearing, no apparent distress, alert Head: normocephalic EENT: PERRL/EOMI, normal ENT inspection Neck: supple Respiratory: normal breath sounds, no respiratory distress Cardiovascular: normal rate Gastrointestinal: normal inspection, non tender, soft, normal bowel sounds, non -distended Rectal: deferred Genitourinary: deferred Musculoskeletal: normal inspection, back normal Neurologic: normal inspection, alert, oriented x3, responsive Psychiatric: normal inspection, judgement/insight normal, memory normal Skin: normal inspection, normal color, no rash, warm/dry, palpation normal, well hydrated Lymphatic: normal inspection, no adenopathy Current Medications Current Medications Medications (Trade) Dose Ordered Sig/Anna Route PRN Reason Start Time Stop Time Status Last Admin Dose Admin Acetaminophen (Tylenol) 650 mg Q4H PRN ORAL T>100.5 05/23/17 12:15 06/22/17 12:14 05/25/17 21:39 Albuterol/ Ipratropium (Albuterol/ Ipratropium) 3 ml Q4H PRN HHN Shortness of Breath 05/23/17 12:15 05/28/17 12:14 Azithromycin 500 mg/Dextrose 275 ml @ 275 mls/hr Q24HRS IV 05/25/17 16:00 05/31/17 16:59 05/25/17 16:39 Cefepime HCl 2 gm/ Dextrose 55 ml @ 110 mls/hr EVERY 12 HOURS IV 05/24/17 21:00 05/31/17 20:59 05/26/17 09:25 Dextrose (Dextrose 50%) STAT PRN IV Hypoglycemia 05/23/17 12:15 06/22/17 12:14 Heparin Sodium (Porcine) (Heparin 5000 units/ml) 5,000 units EVERY 12 HOURS SUBQ 05/23/17 21:00 06/22/17 20:59 05/26/17 09:43 Metronidazole (Flagyl) 250 mg Q6HR ORAL 05/25/17 16:00 06/01/17 15:59 05/26/17 13:11 Morphine Sulfate (Morphine Sulfate) 2 mg Q4H PRN IVP Severe Pain (Pain Scale 7-10) 05/23/17 12:15 05/30/17 12:14 Ondansetron HCl (Zofran) 4 mg Q6H PRN IVP Nausea & Vomiting 05/23/17 12:15 06/22/17 12:14 Polyethylene Glycol (Miralax) 17 gm DAILYPRN PRN ORAL Constipation 05/23/17 12:15 06/22/17 12:14 Vancomycin HCl (Vanco rx to dose) 1 ea DAILY PRN MISC . 05/23/17 14:30 06/22/17 14:29 Vancomycin/Sodium Chloride 250 ml @ 166.667 mls/hr Q12HR@0400,1600 IVPB 05/24/17 04:00 05/29/17 03:59 05/26/17 03:58 GI: Plan Problems: (1) Anemia (2) Severe protein-calorie malnutrition (3) Protein calorie malnutrition (4) Diarrhea (5) Generalized weakness Plan CT chest reviewed. cdiff negative iron levels unremarkable HIV negative KUB r/o chronic pancreatitis >> consider stool trypsin / elastase to r/o pancreatic insufficiency anemia work up OB stool r/o GI bleed fu O&P, add stool culture monitor H&H, prn transfusions bowel regime ppi folate PO H2B fu labs, Tissue Transglutaminase IgA r/o celiac Discussed with Dr. Gamez. Thank you for this patient referral, we will follow. Alyssa Felix N.P. May 26, 2017 16:32
[2017-05-26] MEDS: Azithromycin 500 MG in D5W 275 ML IV SCH (16:42)
--- NOTE | 2017-05-26 16:59 | Pulmonology Progress Note ---
Assessment/Plan Problems: (1) Atypical pneumonia (2) Severe protein-calorie malnutrition (3) Interstitial lung disease (4) Diarrhea Assessment/Plan PPD negative HIV negative Id note appreciated Zithromax was added to cover atypical pneumonia ( very likely) waldo considering the diarrhea GI evaluation requested for chronic diarrhea Subjective Constitutional: Reports: no symptoms HEENT: Repors: no symptoms Allergies: Coded Allergies: No Known Allergies (Unverified , 05/23/17) Objective Last 24 Hour Vital Signs Date Time Temp Pulse Resp B/P (MAP) Pulse Ox O2 Delivery O2 Flow Rate FiO2 05/26/17 15:52 97.6 98 21 121/73 95 Nasal Cannula 2.0 05/26/17 11:38 97.9 89 20 110/71 97 Nasal Cannula 2.0 05/26/17 10:05 88 18 Room Air 21 05/26/17 08:23 97.7 100 19 113/68 90 Room Air 05/26/17 04:00 98.4 101 21 115/70 90 05/26/17 04:00 90 Room Air 05/26/17 00:00 99.5 96 20 127/79 92 05/26/17 00:00 92 Room Air 05/25/17 22:56 99.0 05/25/17 22:50 99.0 05/25/17 20:30 94 Nasal Cannula 2.0 05/25/17 20:00 101.5 104 20 133/81 90 05/25/17 19:05 82 20 Room Air 21 Intake and Output 05/26/17 05/27/17 19:00 07:00 Intake Total 55 ml Balance 55 ml IV Total 55 ml General Appearance: WD/WN HEENT: normocephalic Respiratory/Chest: chest wall non-tender, lungs clear Cardiovascular: normal peripheral pulses, normal rate Abdomen: normal bowel sounds, soft, non tender Genitourinary: normal external genitalia 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 Lymphatic: no neck adenopathy Microbiology Date/Time Source Procedure Growth Status 05/23/17 18:45 Blood Blood Culture - Preliminary NO GROWTH AFTER 48 HOURS Resulted 05/23/17 18:30 Blood Blood Culture - Preliminary NO GROWTH AFTER 48 HOURS Resulted 05/25/17 06:30 Sputum AFB Specimen Processing Tissue - Final Resulted 05/25/17 06:30 Sputum Acid Fast Bacilli Smear - Final Resulted 05/25/17 06:30 Sputum Acid Fast Bacilli Culture Pending Resulted 05/23/17 17:00 Stool Clostridium difficile Toxin Assay - Final Complete 05/24/17 13:15 Urine,Clean Catch Urine Culture - Preliminary NO GROWTH AFTER 24 HOURS Resulted Laboratory Tests 05/26/17 06:00: M. tuberculosis Complex DNA (PCR) [Pending] 05/26/17 08:15: White Blood Count 5.4, Red Blood Count 3.45L, Hemoglobin 11.0L, Hematocrit 31.6L , Mean Corpuscular Volume 92, Mean Corpuscular Hemoglobin 31.8H, Mean Corpuscular Hemoglobin Concent 34.7, Red Cell Distribution Width 12.0, Platelet Count 297, Mean Platelet Volume 6.6, Neutrophils (%) (Auto) , Lymphocytes (%) ( Auto) , Monocytes (%) (Auto) , Eosinophils (%) (Auto) , Basophils (%) (Auto) , Differential Total Cells Counted 100, Neutrophils % (Manual) 92H, Lymphocytes % (Manual) 3L, Monocytes % (Manual) 4, Eosinophils % (Manual) 1, Basophils % ( Manual) 0, Band Neutrophils 0, Toxic Granulation , Platelet Estimate Adequate, Platelet Morphology Normal, Hypochromasia 1+ 05/26/17 13:45: Stool Occult Blood [Pending] 05/26/17 15:30: Vancomycin Level Trough 13.2H Current Medications Medications (Trade) Dose Ordered Sig/Anna Route PRN Reason Start Time Stop Time Status Last Admin Dose Admin Acetaminophen (Tylenol) 650 mg Q4H PRN ORAL T>100.5 05/23/17 12:15 06/22/17 12:14 05/25/17 21:39 Albuterol/ Ipratropium (Albuterol/ Ipratropium) 3 ml Q4H PRN HHN Shortness of Breath 05/23/17 12:15 05/28/17 12:14 Azithromycin 500 mg/Dextrose 275 ml @ 275 mls/hr Q24HRS IV 05/25/17 16:00 05/31/17 16:59 05/26/17 16:42 Cefepime HCl 2 gm/ Dextrose 55 ml @ 110 mls/hr EVERY 12 HOURS IV 05/24/17 21:00 05/31/17 20:59 05/26/17 09:25 Dextrose (Dextrose 50%) STAT PRN IV Hypoglycemia 05/23/17 12:15 06/22/17 12:14 Heparin Sodium (Porcine) (Heparin 5000 units/ml) 5,000 units EVERY 12 HOURS SUBQ 05/23/17 21:00 06/22/17 20:59 05/26/17 09:43 Metronidazole (Flagyl) 250 mg Q6HR ORAL 05/25/17 16:00 06/01/17 15:59 05/26/17 13:11 Morphine Sulfate (Morphine Sulfate) 2 mg Q4H PRN IVP Severe Pain (Pain Scale 7-10) 05/23/17 12:15 05/30/17 12:14 Ondansetron HCl (Zofran) 4 mg Q6H PRN IVP Nausea & Vomiting 05/23/17 12:15 06/22/17 12:14 Polyethylene Glycol (Miralax) 17 gm DAILYPRN PRN ORAL Constipation 05/23/17 12:15 06/22/17 12:14 Vancomycin HCl (Vanco rx to dose) 1 ea DAILY PRN MISC . 05/23/17 14:30 06/22/17 14:29 Vancomycin/Sodium Chloride 250 ml @ 166.667 mls/hr Q12HR@0400,1600 IVPB 05/24/17 04:00 05/29/17 03:59 05/26/17 03:58 TAMMIE MARY May 26, 2017 16:59
[2017-05-26] MEDS ORDERED: NS 500ML ONE (18:52)
[2017-05-26] MEDS ORDERED: Tubing IV Secondary IV ONE (18:52)
[2017-05-26 20:00] VITALS: BP 124/76
--- NOTE | 2017-05-26 23:23 | Consultation ---
History of Present Illness General Chief Complaint: Generalized Weakness Referring physician: TAMMIE BERNARDO Reason for Consultation: DIARRHEA Present Illness HPI 41-year-old male with hx of alcohol use no prior past medical history, was admitted to this medical center with a chief complaint of diarrhea x3 weeks. the pt was hostile and uncooperative has been tearful and depressed Allergies: Coded Allergies: No Known Allergies (Unverified , 05/23/17) Medication History No Active Prescriptions or Reported Meds Patient History Healthcare decision maker N Resuscitation status Full Code Advanced Directive on File Physical Exam General Appearance: no apparent distress, alert Neurologic: alert, oriented x 3, responsive, depressed affect Last 24 Hour Vital Signs Date Time Temp Pulse Resp B/P (MAP) Pulse Ox O2 Delivery O2 Flow Rate FiO2 05/26/17 20:00 99.9 76 20 124/76 93 05/26/17 15:52 97.6 98 21 121/73 95 Nasal Cannula 2.0 05/26/17 11:38 97.9 89 20 110/71 97 Nasal Cannula 2.0 05/26/17 10:05 88 18 Room Air 21 05/26/17 08:23 97.7 100 19 113/68 90 Room Air 05/26/17 04:00 98.4 101 21 115/70 90 05/26/17 04:00 90 Room Air 05/26/17 00:00 99.5 96 20 127/79 92 05/26/17 00:00 92 Room Air Intake and Output 05/26/17 05/27/17 19:00 07:00 Intake Total 575 ml 305.000 ml Output Total 500 ml Balance 75 ml 305.000 ml Intake Oral 520 ml IV Total 55 ml 305.000 ml Output Urine Total 500 ml Laboratory Tests Test 05/26/17 06:00 05/26/17 08:15 05/26/17 13:45 05/26/17 15:30 M. tuberculosis Complex DNA (PCR) Pending White Blood Count 5.4 K/UL (4.8-10.8) Red Blood Count 3.45 M/UL (4.70-6.10) L Hemoglobin 11.0 G/DL (14.2-18.0) L Hematocrit 31.6 % (42.0-52.0) L Mean Corpuscular Volume 92 FL (80-99) Mean Corpuscular Hemoglobin 31.8 PG (27.0-31.0) H Mean Corpuscular Hemoglobin Concent 34.7 G/DL (32.0-36.0) Red Cell Distribution Width 12.0 % (11.6-14.8) Platelet Count 297 K/UL (150-450) Mean Platelet Volume 6.6 FL (6.5-10.1) Neutrophils (%) (Auto) % (45.0-75.0) Lymphocytes (%) (Auto) % (20.0-45.0) Monocytes (%) (Auto) % (1.0-10.0) Eosinophils (%) (Auto) % (0.0-3.0) Basophils (%) (Auto) % (0.0-2.0) Differential Total Cells Counted 100 Neutrophils % (Manual) 92 % (45-75) H Lymphocytes % (Manual) 3 % (20-45) L Monocytes % (Manual) 4 % (1-10) Eosinophils % (Manual) 1 % (0-3) Basophils % (Manual) 0 % (0-2) Band Neutrophils 0 % (0-8) Toxic Granulation Platelet Estimate Adequate Platelet Morphology Normal Hypochromasia 1+ Stool Occult Blood Pending Vancomycin Level Trough 13.2 ug/mL (5.0-12.0) H Height (Feet): 5 Height (Inches): 10.00 Weight (Pounds): 90 Medications Current Medications Medications (Trade) Dose Ordered Sig/Anna Route PRN Reason Start Time Stop Time Status Last Admin Dose Admin Acetaminophen (Tylenol) 650 mg Q4H PRN ORAL T>100.5 05/23/17 12:15 06/22/17 12:14 05/25/17 21:39 Albuterol/ Ipratropium (Albuterol/ Ipratropium) 3 ml Q4H PRN HHN Shortness of Breath 05/23/17 12:15 05/28/17 12:14 Azithromycin 500 mg/Dextrose 275 ml @ 275 mls/hr Q24HRS IV 05/25/17 16:00 05/31/17 16:59 05/26/17 16:42 Cefepime HCl 2 gm/ Dextrose 55 ml @ 110 mls/hr EVERY 12 HOURS IV 05/24/17 21:00 05/31/17 20:59 05/26/17 20:30 Dextrose (Dextrose 50%) STAT PRN IV Hypoglycemia 05/23/17 12:15 06/22/17 12:14 Folic Acid (Folate) 1 mg DAILY ORAL 05/27/17 09:00 06/26/17 08:59 Heparin Sodium (Porcine) (Heparin 5000 units/ml) 5,000 units EVERY 12 HOURS SUBQ 05/23/17 21:00 06/22/17 20:59 05/26/17 20:31 Metronidazole (Flagyl) 250 mg Q6HR ORAL 05/25/17 16:00 06/01/17 15:59 05/26/17 18:51 Morphine Sulfate (Morphine Sulfate) 2 mg Q4H PRN IVP Severe Pain (Pain Scale 7-10) 05/23/17 12:15 05/30/17 12:14 Ondansetron HCl (Zofran) 4 mg Q6H PRN IVP Nausea & Vomiting 05/23/17 12:15 06/22/17 12:14 Polyethylene Glycol (Miralax) 17 gm DAILYPRN PRN ORAL Constipation 05/23/17 12:15 06/22/17 12:14 Ranitidine HCl (Zantac) 150 mg BEDTIME ORAL 05/26/17 21:00 06/25/17 20:59 05/26/17 20:30 Vancomycin HCl (Vanco rx to dose) 1 ea DAILY PRN MISC . 05/23/17 14:30 06/22/17 14:29 Vancomycin/Sodium Chloride 250 ml @ 166.667 mls/hr Q12HR@0400,1600 IVPB 05/24/17 04:00 05/29/17 03:59 05/26/17 18:51 Assessment/Plan Status: stable Assessment/Plan mdd alcohol abuse pancreatic insuff prozac 20mg remeron 7.5 Amanda Mina M.D. May 26, 2017 23:23
[2017-05-27] VITALS: BP 123/83
[2017-05-27] MEDS: Vancomycin 750mg/NS 250ml IVPB SCH (03:59)
[2017-05-27 04:00] VITALS: BP 121/78
[2017-05-27] MEDS: metroNIDAZOLE 250mg tab ORAL SCH ×4 (06:00→18:12)
[2017-05-27 07:24] LABS: ALANINE AMINOTRANSFERASE 6 U/L (12-78); ALBUMIN 0.8 G/DL (3.4-5.0); ALBUMIN/GLOBULIN RATIO 0.1 (1.0-2.7); ALKALINE PHOSPHATASE 68 U/L (46-116); ANION GAP 6 mmol/L (5-15); ASPARTATE AMINO TRANSFERASE 46 U/L (15-37); BILIRUBIN,TOTAL 0.4 MG/DL (0.2-1.0); BLOOD UREA NITROGEN 23 mg/dL (7-18); CALCIUM 7.7 MG/DL (8.5-10.1); CARBON DIOXIDE 25 MMOL/L (21-32); CHLORIDE 102 MMOL/L (98-107); PHOSPHORUS 2.6 MG/DL (2.5-4.9); POTASSIUM 3.6 MMOL/L (3.5-5.1); SODIUM 133 MMOL/L (136-145)
[2017-05-27 07:29] LABS: HEMATOCRIT 29.9 % (42.0-52.0); MEAN CORPUSCULAR VOLUME 89 FL (80-99); PLATELET COUNT 233 K/UL (150-450); RED BLOOD COUNT 3.36 M/UL (4.70-6.10); RED CELL DISTRIBUTION WIDTH 11.8 % (11.6-14.8)
[2017-05-27 08:00] VITALS: BP 119/77
[2017-05-27] MEDS: Heparin 5000 units/ml inj SUBQ SCH ×2 (09:00→21:00)
--- NOTE | 2017-05-27 09:07 | Infectious Diseases Prog Note ---
Assessment/Plan Assessment/Plan ASSESSMENT: The patient is a 41-year-old male with Weight loss Fever, SP Pneumonia. . Sp Cx : MSSA RO fungal and atypical mycobacteria (TB is possible, less likely) AFBx 2 : Neg CT: Extensive interstitial and airspace parenchymal disease, and honeycomb appearance of much of the lower lobe and right middle lobe interstitial component, HIV negative Chronic diarrhea? pancreatic insufficiency due to chronic alcohol abuse PLAN: Cont Zithromax and Flagyl d# 3 and start Ancef d# 1 DC vancomycin, cefepime d# 5, Monitor CBC Monitor BMP. Monitor cultures (blood, stool). Stool for ova and parasite. Sputum for AFB x3 and mycobacterium TB PCR Serology (coccidio , Crytp , histo and blastomycosis) GI following for the patient's chronic diarrhea. Subjective Allergies: Coded Allergies: No Known Allergies (Unverified , 05/23/17) Objective Vital Signs Last 24 Hour Vital Signs Date Time Temp Pulse Resp B/P (MAP) Pulse Ox O2 Delivery O2 Flow Rate FiO2 05/27/17 07:17 75 20 Nasal Cannula 2.0 28 05/27/17 04:00 99.0 80 18 121/78 93 05/27/17 04:00 93 Nasal Cannula 2.0 05/27/17 00:00 94 Nasal Cannula 2.0 05/27/17 00:00 99.1 94 18 123/83 94 05/26/17 20:00 99.9 76 20 124/76 93 05/26/17 20:00 93 Nasal Cannula 2.0 05/26/17 19:11 79 20 Room Air 21 05/26/17 15:52 97.6 98 21 121/73 95 Nasal Cannula 2.0 05/26/17 11:38 97.9 89 20 110/71 97 Nasal Cannula 2.0 05/26/17 10:05 88 18 Room Air 21 Height (Feet): 5 Height (Inches): 10.00 Weight (Pounds): 90 Respiratory/Chest: no respiratory distress, no accessory muscle use Microbiology Date/Time Source Procedure Growth Status 05/25/17 06:30 Sputum AFB Specimen Processing Tissue - Final Resulted 05/25/17 06:30 Sputum Acid Fast Bacilli Smear - Final Resulted 05/25/17 06:30 Sputum Acid Fast Bacilli Culture Pending Resulted 05/24/17 13:15 Urine,Clean Catch Urine Culture - Final NO GROWTH AFTER 48 HOURS Complete Laboratory Tests Test 05/26/17 13:45 05/26/17 15:30 05/27/17 05:20 Stool Occult Blood Pending Vancomycin Level Trough 13.2 ug/mL (5.0-12.0) H White Blood Count 5.0 K/UL (4.8-10.8) Red Blood Count 3.36 M/UL (4.70-6.10) L Hemoglobin 10.0 G/DL (14.2-18.0) L Hematocrit 29.9 % (42.0-52.0) L Mean Corpuscular Volume 89 FL (80-99) Mean Corpuscular Hemoglobin 29.9 PG (27.0-31.0) Mean Corpuscular Hemoglobin Concent 33.5 G/DL (32.0-36.0) Red Cell Distribution Width 11.8 % (11.6-14.8) Platelet Count 233 K/UL (150-450) Mean Platelet Volume 7.0 FL (6.5-10.1) Neutrophils (%) (Auto) % (45.0-75.0) Lymphocytes (%) (Auto) % (20.0-45.0) Monocytes (%) (Auto) % (1.0-10.0) Eosinophils (%) (Auto) % (0.0-3.0) Basophils (%) (Auto) % (0.0-2.0) Neutrophils % (Manual) Pending Lymphocytes % (Manual) Pending Platelet Estimate Pending Platelet Morphology Pending Sodium Level 133 MMOL/L (136-145) L Potassium Level 3.6 MMOL/L (3.5-5.1) Chloride Level 102 MMOL/L (98-107) Carbon Dioxide Level 25 MMOL/L (21-32) Anion Gap 6 mmol/L (5-15) Blood Urea Nitrogen 23 mg/dL (7-18) H Creatinine 1.0 MG/DL (0.55-1.30) Estimat Glomerular Filtration Rate > 60 mL/min (>60) Glucose Level 104 MG/DL (74-106) Calcium Level 7.7 MG/DL (8.5-10.1) L Phosphorus Level 2.6 MG/DL (2.5-4.9) Magnesium Level 1.4 MG/DL (1.8-2.4) L Total Bilirubin 0.4 MG/DL (0.2-1.0) Aspartate Amino Transf (AST/SGOT) 46 U/L (15-37) H Alanine Aminotransferase (ALT/SGPT) 6 U/L (12-78) L Alkaline Phosphatase 68 U/L (46-116) Total Protein 7.2 G/DL (6.4-8.2) Albumin 0.8 G/DL (3.4-5.0) L Globulin 6.4 g/dL Albumin/Globulin Ratio 0.1 (1.0-2.7) L Tissue Transglutaminase IgA Ab Pending Current Medications Medications (Trade) Dose Ordered Sig/Anna Route PRN Reason Start Time Stop Time Status Last Admin Dose Admin Acetaminophen (Tylenol) 650 mg Q4H PRN ORAL T>100.5 05/23/17 12:15 06/22/17 12:14 05/25/17 21:39 Albuterol/ Ipratropium (Albuterol/ Ipratropium) 3 ml Q4H PRN HHN Shortness of Breath 05/23/17 12:15 05/28/17 12:14 Azithromycin 500 mg/Dextrose 275 ml @ 275 mls/hr Q24HRS IV 05/25/17 16:00 05/31/17 16:59 05/26/17 16:42 Cefepime HCl 2 gm/ Dextrose 55 ml @ 110 mls/hr EVERY 12 HOURS IV 05/24/17 21:00 05/31/17 20:59 05/26/17 20:30 Dextrose (Dextrose 50%) STAT PRN IV Hypoglycemia 05/23/17 12:15 06/22/17 12:14 Fluoxetine HCl (PROzac) 20 mg DAILY ORAL 05/27/17 09:00 06/26/17 08:59 Folic Acid (Folate) 1 mg DAILY ORAL 05/27/17 09:00 06/26/17 08:59 Heparin Sodium (Porcine) (Heparin 5000 units/ml) 5,000 units EVERY 12 HOURS SUBQ 05/23/17 21:00 06/22/17 20:59 05/26/17 20:31 Magnesium Sulfate 100 ml @ 100 mls/hr Q1H IVPB 05/27/17 09:00 05/27/17 10:59 UNV Metronidazole (Flagyl) 250 mg Q6HR ORAL 05/25/17 16:00 06/01/17 15:59 05/27/17 06:00 Mirtazapine (Remeron) 7.5 mg BEDTIME ORAL 05/27/17 21:00 06/26/17 20:59 Morphine Sulfate (Morphine Sulfate) 2 mg Q4H PRN IVP Severe Pain (Pain Scale 7-10) 05/23/17 12:15 05/30/17 12:14 Ondansetron HCl (Zofran) 4 mg Q6H PRN IVP Nausea & Vomiting 05/23/17 12:15 06/22/17 12:14 Polyethylene Glycol (Miralax) 17 gm DAILYPRN PRN ORAL Constipation 05/23/17 12:15 06/22/17 12:14 Ranitidine HCl (Zantac) 150 mg BEDTIME ORAL 05/26/17 21:00 06/25/17 20:59 05/26/17 20:30 Vancomycin HCl (Vanco rx to dose) 1 ea DAILY PRN MISC . 05/23/17 14:30 06/22/17 14:29 Vancomycin/Sodium Chloride 250 ml @ 166.667 mls/hr Q12HR@0400,1600 IVPB 05/24/17 04:00 05/29/17 03:59 05/27/17 03:59 AMARIS BRIGGS M.D. May 27, 2017 09:07
[2017-05-27] MEDS: ceFAZolin 2gm/50ml Premix 50 ML IV SCH ×2 (10:25→18:12)
--- NOTE | 2017-05-27 11:10 | GI Progress Note ---
Assessment/Plan Problems: (1) Generalized weakness ICD Codes: R53.1 - Weakness SNOMED: 04656650 (2) Anemia ICD Codes: D64.9 - Anemia, unspecified SNOMED: 722720725 (3) Severe protein-calorie malnutrition ICD Codes: E43 - Unspecified severe protein-calorie malnutrition SNOMED: 798522804 (4) Atypical pneumonia ICD Codes: J18.9 - Pneumonia, unspecified organism SNOMED: 835240789 (5) Protein calorie malnutrition ICD Codes: E46 - Unspecified protein-calorie malnutrition SNOMED: 588767611 Qualifiers: Qualified Codes: E44.0 - Moderate protein-calorie malnutrition (6) Diarrhea ICD Codes: R19.7 - Diarrhea, unspecified SNOMED: 00157558 Qualifiers: Qualified Codes: R19.7 - Diarrhea, unspecified Status: unchanged Status Narrative Discussed with Dr. Gamez. Assessment/Plan CT chest reviewed. cdiff negative iron levels unremarkable HIV negative airborne r/o TB fu KUB r/o chronic pancreatitis >> consider stool trypsin & elastase to r/o pancreatic insufficiency OB stool r/o GI bleed fu O&P, add stool culture monitor H&H, prn transfusions bowel regime ppi folate PO H2B fu labs, Tissue Transglutaminase IgA r/o celiac Subjective Gastrointestinal/Abdominal: Reports: diarrhea Objective Last 24 Hour Vital Signs Date Time Temp Pulse Resp B/P (MAP) Pulse Ox O2 Delivery O2 Flow Rate FiO2 05/27/17 08:00 98.8 79 18 119/77 96 05/27/17 07:17 75 20 Nasal Cannula 2.0 28 05/27/17 04:00 99.0 80 18 121/78 93 05/27/17 04:00 93 Nasal Cannula 2.0 05/27/17 00:00 94 Nasal Cannula 2.0 05/27/17 00:00 99.1 94 18 123/83 94 05/26/17 20:00 99.9 76 20 124/76 93 05/26/17 20:00 93 Nasal Cannula 2.0 05/26/17 19:11 79 20 Room Air 21 05/26/17 15:52 97.6 98 21 121/73 95 Nasal Cannula 2.0 05/26/17 11:38 97.9 89 20 110/71 97 Nasal Cannula 2.0 Laboratory Tests Test 05/26/17 13:45 05/26/17 15:30 05/27/17 05:20 Stool Occult Blood Pending Vancomycin Level Trough 13.2 ug/mL (5.0-12.0) H White Blood Count 5.0 K/UL (4.8-10.8) Red Blood Count 3.36 M/UL (4.70-6.10) L Hemoglobin 10.0 G/DL (14.2-18.0) L Hematocrit 29.9 % (42.0-52.0) L Mean Corpuscular Volume 89 FL (80-99) Mean Corpuscular Hemoglobin 29.9 PG (27.0-31.0) Mean Corpuscular Hemoglobin Concent 33.5 G/DL (32.0-36.0) Red Cell Distribution Width 11.8 % (11.6-14.8) Platelet Count 233 K/UL (150-450) Mean Platelet Volume 7.0 FL (6.5-10.1) Neutrophils (%) (Auto) % (45.0-75.0) Lymphocytes (%) (Auto) % (20.0-45.0) Monocytes (%) (Auto) % (1.0-10.0) Eosinophils (%) (Auto) % (0.0-3.0) Basophils (%) (Auto) % (0.0-2.0) Differential Total Cells Counted 100 Neutrophils % (Manual) 97 % (45-75) H Lymphocytes % (Manual) 2 % (20-45) L Monocytes % (Manual) 1 % (1-10) Eosinophils % (Manual) 0 % (0-3) Basophils % (Manual) 0 % (0-2) Band Neutrophils 0 % (0-8) Platelet Estimate Adequate Platelet Morphology Clumped Platelets 1+ Hypochromasia 1+ Sodium Level 133 MMOL/L (136-145) L Potassium Level 3.6 MMOL/L (3.5-5.1) Chloride Level 102 MMOL/L (98-107) Carbon Dioxide Level 25 MMOL/L (21-32) Anion Gap 6 mmol/L (5-15) Blood Urea Nitrogen 23 mg/dL (7-18) H Creatinine 1.0 MG/DL (0.55-1.30) Estimat Glomerular Filtration Rate > 60 mL/min (>60) Glucose Level 104 MG/DL (74-106) Calcium Level 7.7 MG/DL (8.5-10.1) L Phosphorus Level 2.6 MG/DL (2.5-4.9) Magnesium Level 1.4 MG/DL (1.8-2.4) L Total Bilirubin 0.4 MG/DL (0.2-1.0) Aspartate Amino Transf (AST/SGOT) 46 U/L (15-37) H Alanine Aminotransferase (ALT/SGPT) 6 U/L (12-78) L Alkaline Phosphatase 68 U/L (46-116) Total Protein 7.2 G/DL (6.4-8.2) Albumin 0.8 G/DL (3.4-5.0) L Globulin 6.4 g/dL Albumin/Globulin Ratio 0.1 (1.0-2.7) L Tissue Transglutaminase IgA Ab Pending Height (Feet): 5 Height (Inches): 10.00 Weight (Pounds): 90 General Appearance: WD/WN, no apparent distress, alert, thin Cardiovascular: normal rate Respiratory/Chest: normal breath sounds, no respiratory distress Abdominal Exam: normal bowel sounds, non tender, soft Extremities: normal range of motion, non-tender Alyssa Felix N.P. May 27, 2017 11:10
--- NOTE | 2017-05-27 11:29 | Diagnostic Imaging Report ---
Indication: Abdominal pain Technique: Supine view of the abdomen Comparison: none Findings: Bowel gas pattern is unremarkable. No unusual masses or calcifications. Extensive pulmonary parenchymal disease is incidentally noted, described on multiple earlier chest images Impression: No acute process
[2017-05-27 12:00] VITALS: BP 114/76
[2017-05-27] MEDS ORDERED: ceFAZolin sod 2 GM in D5W 110 ML IVPB SCH (14:00)
[2017-05-27 16:00] VITALS: BP 120/74
[2017-05-27] MEDS: Azithromycin 500 MG in D5W 275 ML IV SCH (16:08)
--- NOTE | 2017-05-27 18:17 | Pulmonology Progress Note ---
Assessment/Plan Problems: (1) Atypical pneumonia (2) Severe protein-calorie malnutrition (3) Interstitial lung disease (4) Diarrhea Assessment/Plan PPD negative HIV negative Id note appreciated Zithromax was added to cover atypical pneumonia ( very likely) waldo considering the diarrhea cefepime and vanco were discontinued might needs lung tissue if turns out to be AFB negative X 3 Subjective ROS Limited/Unobtainable: No Constitutional: Reports: no symptoms HEENT: Repors: no symptoms Respiratory: Reports: no symptoms Allergies: Coded Allergies: No Known Allergies (Unverified , 05/23/17) Objective Last 24 Hour Vital Signs Date Time Temp Pulse Resp B/P (MAP) Pulse Ox O2 Delivery O2 Flow Rate FiO2 05/27/17 16:00 98.0 98 18 120/74 05/27/17 12:00 97.7 103 18 114/76 91 05/27/17 08:00 98.8 79 18 119/77 96 05/27/17 07:17 75 20 Nasal Cannula 2.0 28 05/27/17 04:00 99.0 80 18 121/78 93 05/27/17 04:00 93 Nasal Cannula 2.0 05/27/17 00:00 94 Nasal Cannula 2.0 05/27/17 00:00 99.1 94 18 123/83 94 05/26/17 20:00 99.9 76 20 124/76 93 05/26/17 20:00 93 Nasal Cannula 2.0 05/26/17 19:11 79 20 Room Air 21 Intake and Output 05/27/17 05/28/17 19:00 07:00 Intake Total 150 ml Balance 150 ml IV Total 150 ml # Bowel Movements 2 General Appearance: cachetic HEENT: normocephalic, atraumatic Respiratory/Chest: chest wall non-tender, lungs clear Cardiovascular: normal peripheral pulses, normal rate Abdomen: normal bowel sounds, soft, non tender Genitourinary: normal external genitalia Extremities: no cyanosis 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/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, no motor/sensory deficits Microbiology Date/Time Source Procedure Growth Status 05/25/17 06:30 Sputum AFB Specimen Processing Tissue - Final Resulted 05/25/17 06:30 Sputum Acid Fast Bacilli Smear - Final Resulted 05/25/17 06:30 Sputum Acid Fast Bacilli Culture Pending Resulted Laboratory Tests 05/27/17 05:20: White Blood Count 5.0, Red Blood Count 3.36L, Hemoglobin 10.0L, Hematocrit 29.9L , Mean Corpuscular Volume 89, Mean Corpuscular Hemoglobin 29.9, Mean Corpuscular Hemoglobin Concent 33.5, Red Cell Distribution Width 11.8, Platelet Count 233, Mean Platelet Volume 7.0, Neutrophils (%) (Auto) , Lymphocytes (%) ( Auto) , Monocytes (%) (Auto) , Eosinophils (%) (Auto) , Basophils (%) (Auto) , Differential Total Cells Counted 100, Neutrophils % (Manual) 97H, Lymphocytes % (Manual) 2L, Monocytes % (Manual) 1, Eosinophils % (Manual) 0, Basophils % ( Manual) 0, Band Neutrophils 0, Platelet Estimate Adequate, Platelet Morphology , Clumped Platelets 1+, Hypochromasia 1+, Sodium Level 133L, Potassium Level 3.6 , Chloride Level 102, Carbon Dioxide Level 25, Anion Gap 6, Blood Urea Nitrogen 23H, Creatinine 1.0, Estimat Glomerular Filtration Rate > 60, Glucose Level 104 , Calcium Level 7.7L, Phosphorus Level 2.6, Magnesium Level 1.4L, Total Bilirubin 0.4, Aspartate Amino Transf (AST/SGOT) 46H, Alanine Aminotransferase ( ALT/SGPT) 6L, Alkaline Phosphatase 68, Total Protein 7.2, Albumin 0.8L, Globulin 6.4, Albumin/Globulin Ratio 0.1L, Tissue Transglutaminase IgA Ab [ Pending] Current Medications Medications (Trade) Dose Ordered Sig/Anna Route PRN Reason Start Time Stop Time Status Last Admin Dose Admin Acetaminophen (Tylenol) 650 mg Q4H PRN ORAL T>100.5 05/23/17 12:15 06/22/17 12:14 05/25/17 21:39 Albuterol/ Ipratropium (Albuterol/ Ipratropium) 3 ml Q4H PRN HHN Shortness of Breath 05/23/17 12:15 05/28/17 12:14 Azithromycin 500 mg/Dextrose 275 ml @ 275 mls/hr Q24HRS IV 05/25/17 16:00 05/31/17 16:59 05/27/17 16:08 Cefazolin Sodium 50 ml @ 100 mls/hr Q8HR@0200,1000,1800 IV 05/27/17 10:00 06/03/17 09:59 05/27/17 18:12 Dextrose (Dextrose 50%) STAT PRN IV Hypoglycemia 05/23/17 12:15 06/22/17 12:14 Fluoxetine HCl (PROzac) 20 mg DAILY ORAL 05/27/17 09:00 06/26/17 08:59 Folic Acid (Folate) 1 mg DAILY ORAL 05/27/17 09:00 06/26/17 08:59 05/27/17 09:28 Heparin Sodium (Porcine) (Heparin 5000 units/ml) 5,000 units EVERY 12 HOURS SUBQ 05/23/17 21:00 06/22/17 20:59 05/26/17 20:31 Metronidazole (Flagyl) 250 mg Q6HR ORAL 05/25/17 16:00 06/01/17 15:59 05/27/17 18:12 Mirtazapine (Remeron) 7.5 mg BEDTIME ORAL 05/27/17 21:00 06/26/17 20:59 Morphine Sulfate (Morphine Sulfate) 2 mg Q4H PRN IVP Severe Pain (Pain Scale 7-10) 05/23/17 12:15 05/30/17 12:14 Ondansetron HCl (Zofran) 4 mg Q6H PRN IVP Nausea & Vomiting 05/23/17 12:15 06/22/17 12:14 Polyethylene Glycol (Miralax) 17 gm DAILYPRN PRN ORAL Constipation 05/23/17 12:15 06/22/17 12:14 Ranitidine HCl (Zantac) 150 mg BEDTIME ORAL 05/26/17 21:00 06/25/17 20:59 05/26/17 20:30 TAMMIE MARY May 27, 2017 18:17
[2017-05-27 20:00] VITALS: BP 134/91
[2017-05-28] VITALS: BP 101/65
--- NOTE | 2017-05-28 00:16 | Progress Note ---
DATE: 05/27/2017 SUBJECTIVE: The patient is uncooperative with the nurse. He has a bad attitude. He is irritable and hostile. He has been refusing his fluoxetine as well as Flagyl antibiotic. The patient later on agreed to take the medication intravenously. Even though he does not need some medications, we are medicating the patient. The patient is not endorsing any suicidal or homicidal ideations. He believes that he has diarrhea due to food poisoning. MENTAL STATUS EXAMINATION: The patient is alert and oriented to times self, place, and situation he is in. Mood is irritable. Affect is constricted. Congruent with mood. Thought process is concrete. Thought content, no suicidal or homicidal ideations. ASSESSMENT: 1. Alcohol dependence. 2. Depression. PLAN: 1. We will continue the Prozac 20 mg in the morning. 2. Remeron 7.5 mg at bedtime. 3. Encouraged him to take his medications. 4. We will continue to follow and readjust the medications. Amanda Mina M.D. DR: IRVIN JOB#: [id number] CC:
[2017-05-28] MEDS: ceFAZolin 2gm/50ml Premix 50 ML IV SCH ×3 (01:04→18:29)
[2017-05-28] MEDS: metroNIDAZOLE 250mg tab ORAL SCH ×5 (01:04→23:55)
[2017-05-28 03:55] VITALS: BP 115/77
[2017-05-28 07:24] LABS: HEMATOCRIT 37.3 % (42.0-52.0); HEMOGLOBIN 12.5 G/DL (14.2-18.0); MEAN CORPUSCULAR VOLUME 91 FL (80-99); PLATELET COUNT 181 K/UL (150-450); RED BLOOD COUNT 4.08 M/UL (4.70-6.10); RED CELL DISTRIBUTION WIDTH 12.5 % (11.6-14.8); WHITE BLOOD COUNT 4.2 K/UL (4.8-10.8)
[2017-05-28 07:30] LABS: ANION GAP 5 mmol/L (5-15); BLOOD UREA NITROGEN 21 mg/dL (7-18); CALCIUM 8.1 MG/DL (8.5-10.1); CARBON DIOXIDE 28 MMOL/L (21-32); CHLORIDE 101 MMOL/L (98-107); CREATININE 0.9 MG/DL (0.55-1.30); POTASSIUM 3.7 MMOL/L (3.5-5.1); SODIUM 134 MMOL/L (136-145)
[2017-05-28 08:00] VITALS: BP 123/84
[2017-05-28] MEDS: Heparin 5000 units/ml inj SUBQ SCH ×2 (09:00→21:15)
[2017-05-28] MEDS: Magnesium Oxide 400mg tab ORAL SCH ×4 (09:00→17:55)
--- NOTE | 2017-05-28 10:34 | GI Progress Note ---
Assessment/Plan Problems: (1) Generalized weakness ICD Codes: R53.1 - Weakness SNOMED: 35888552 (2) Anemia ICD Codes: D64.9 - Anemia, unspecified SNOMED: 039867830 (3) Severe protein-calorie malnutrition ICD Codes: E43 - Unspecified severe protein-calorie malnutrition SNOMED: 214582132 (4) Atypical pneumonia ICD Codes: J18.9 - Pneumonia, unspecified organism SNOMED: 478203914 (5) Protein calorie malnutrition ICD Codes: E46 - Unspecified protein-calorie malnutrition SNOMED: 810882520 Qualifiers: Qualified Codes: E44.0 - Moderate protein-calorie malnutrition (6) Diarrhea ICD Codes: R19.7 - Diarrhea, unspecified SNOMED: 61261495 Qualifiers: Qualified Codes: R19.7 - Diarrhea, unspecified Status: unchanged Status Narrative Discussed with Dr. Gamez. Assessment/Plan CT chest reviewed. cdiff negative iron levels unremarkable HIV negative airborne r/o TB fu KUB r/o chronic pancreatitis >> unremarkable OB stool r/o GI bleed fu O&P, add stool culture monitor H&H, prn transfusions bowel regime ppi folate PO H2B fu labs, Tissue Transglutaminase IgA r/o celiac Subjective Subjective refusing medications Objective Last 24 Hour Vital Signs Date Time Temp Pulse Resp B/P (MAP) Pulse Ox O2 Delivery O2 Flow Rate FiO2 05/28/17 08:51 82 18 Room Air 21 05/28/17 08:00 97.7 75 20 123/84 94 05/28/17 04:00 Nasal Cannula 2.0 05/28/17 03:55 97.0 71 19 115/77 95 05/28/17 00:55 97.5 05/28/17 00:00 97.5 79 18 101/65 95 05/28/17 00:00 Nasal Cannula 2.0 05/27/17 20:00 Nasal Cannula 2.0 05/27/17 20:00 101.7 93 18 134/91 93 05/27/17 19:57 88 20 Room Air 21 05/27/17 16:00 98.0 98 18 120/74 05/27/17 12:00 97.7 103 18 114/76 91 Laboratory Tests Test 05/28/17 04:45 05/28/17 09:10 White Blood Count 4.2 K/UL (4.8-10.8) L Red Blood Count 4.08 M/UL (4.70-6.10) L Hemoglobin 12.5 G/DL (14.2-18.0) L Hematocrit 37.3 % (42.0-52.0) L Mean Corpuscular Volume 91 FL (80-99) Mean Corpuscular Hemoglobin 30.7 PG (27.0-31.0) Mean Corpuscular Hemoglobin Concent 33.5 G/DL (32.0-36.0) Red Cell Distribution Width 12.5 % (11.6-14.8) Platelet Count 181 K/UL (150-450) Mean Platelet Volume 8.3 FL (6.5-10.1) Neutrophils (%) (Auto) % (45.0-75.0) Lymphocytes (%) (Auto) % (20.0-45.0) Monocytes (%) (Auto) % (1.0-10.0) Eosinophils (%) (Auto) % (0.0-3.0) Basophils (%) (Auto) % (0.0-2.0) Differential Total Cells Counted 100 Neutrophils % (Manual) 95 % (45-75) H Lymphocytes % (Manual) 3 % (20-45) L Monocytes % (Manual) 2 % (1-10) Eosinophils % (Manual) 0 % (0-3) Basophils % (Manual) 0 % (0-2) Band Neutrophils 0 % (0-8) Platelet Estimate Adequate Platelet Morphology Normal Clumped Platelets 2+ Red Blood Cell Morphology Normal Sodium Level 134 MMOL/L (136-145) L Potassium Level 3.7 MMOL/L (3.5-5.1) Chloride Level 101 MMOL/L (98-107) Carbon Dioxide Level 28 MMOL/L (21-32) Anion Gap 5 mmol/L (5-15) Blood Urea Nitrogen 21 mg/dL (7-18) H Creatinine 0.9 MG/DL (0.55-1.30) Estimat Glomerular Filtration Rate > 60 mL/min (>60) Glucose Level 75 MG/DL (74-106) Calcium Level 8.1 MG/DL (8.5-10.1) L Magnesium Level 1.7 MG/DL (1.8-2.4) L Monoscreen Pending TB Test (T-Spot) Pending TB Test Nil Control (T-Spot) Pending TB Test Panel A (T-Spot) Pending TB Test Panel B (T-Spot) Pending TB Test Positive Control (T-Spot) Pending Height (Feet): 5 Height (Inches): 10.00 Weight (Pounds): 90 General Appearance: WD/WN, no apparent distress, alert, thin Cardiovascular: normal rate Respiratory/Chest: normal breath sounds, no respiratory distress Abdominal Exam: normal bowel sounds, non tender, soft Extremities: normal range of motion, non-tender Alyssa Felix N.P. May 28, 2017 10:34
--- NOTE | 2017-05-28 11:04 | Cardiology Report ---
APPROVED REPORT EKG Measurement Heart [id number] IL [id number] Normal sinus rhythm Nonspecific ST abnormality Abnormal ECG
[2017-05-28 12:39] VITALS: BP 128/68
--- NOTE | 2017-05-28 13:18 | Infectious Diseases Prog Note ---
Assessment/Plan Assessment/Plan ASSESSMENT: The patient is a 41-year-old male with Weight loss Fever x 1 Pneumonia. . Sp Cx : MSSA RO fungal and atypical mycobacteria (TB is possible, less likely) AFBx 2 : Neg Crytpo and blastomycosis: Neg CT: Extensive interstitial and airspace parenchymal disease, and honeycomb appearance of much of the lower lobe and right middle lobe interstitial component, HIV negative Chronic diarrhea? pancreatic insufficiency due to chronic alcohol abuse PLAN: Cont Zithromax and Flagyl d# 4 and Ancef d# 2 05/27 SP vancomycin, cefepime d# 5, Monitor CBC Monitor BMP. Monitor cultures (blood, stool). Stool for ova and parasite. Sputum for AFB x3 and mycobacterium TB PCR Serology (coccidio , histo ) GI following for the patient's chronic diarrhea. Subjective Allergies: Coded Allergies: No Known Allergies (Unverified , 05/23/17) Subjective Sp fever x 1 Objective Vital Signs Last 24 Hour Vital Signs Date Time Temp Pulse Resp B/P (MAP) Pulse Ox O2 Delivery O2 Flow Rate FiO2 05/28/17 12:39 97.5 104 18 128/68 100 05/28/17 08:51 82 18 Room Air 21 05/28/17 08:00 97.7 75 20 123/84 94 05/28/17 04:00 Nasal Cannula 2.0 05/28/17 03:55 97.0 71 19 115/77 95 05/28/17 00:55 97.5 05/28/17 00:00 97.5 79 18 101/65 95 05/28/17 00:00 Nasal Cannula 2.0 05/27/17 20:00 Nasal Cannula 2.0 05/27/17 20:00 101.7 93 18 134/91 93 05/27/17 19:57 88 20 Room Air 21 05/27/17 16:00 98.0 98 18 120/74 Height (Feet): 5 Height (Inches): 10.00 Weight (Pounds): 90 HEENT: anicteric Respiratory/Chest: lungs clear Cardiovascular: regularly irregular Abdomen: no organomegaly Laboratory Tests Test 05/28/17 04:45 05/28/17 09:10 White Blood Count 4.2 K/UL (4.8-10.8) L Red Blood Count 4.08 M/UL (4.70-6.10) L Hemoglobin 12.5 G/DL (14.2-18.0) L Hematocrit 37.3 % (42.0-52.0) L Mean Corpuscular Volume 91 FL (80-99) Mean Corpuscular Hemoglobin 30.7 PG (27.0-31.0) Mean Corpuscular Hemoglobin Concent 33.5 G/DL (32.0-36.0) Red Cell Distribution Width 12.5 % (11.6-14.8) Platelet Count 181 K/UL (150-450) Mean Platelet Volume 8.3 FL (6.5-10.1) Neutrophils (%) (Auto) % (45.0-75.0) Lymphocytes (%) (Auto) % (20.0-45.0) Monocytes (%) (Auto) % (1.0-10.0) Eosinophils (%) (Auto) % (0.0-3.0) Basophils (%) (Auto) % (0.0-2.0) Differential Total Cells Counted 100 Neutrophils % (Manual) 95 % (45-75) H Lymphocytes % (Manual) 3 % (20-45) L Monocytes % (Manual) 2 % (1-10) Eosinophils % (Manual) 0 % (0-3) Basophils % (Manual) 0 % (0-2) Band Neutrophils 0 % (0-8) Platelet Estimate Adequate Platelet Morphology Normal Clumped Platelets 2+ Red Blood Cell Morphology Normal Sodium Level 134 MMOL/L (136-145) L Potassium Level 3.7 MMOL/L (3.5-5.1) Chloride Level 101 MMOL/L (98-107) Carbon Dioxide Level 28 MMOL/L (21-32) Anion Gap 5 mmol/L (5-15) Blood Urea Nitrogen 21 mg/dL (7-18) H Creatinine 0.9 MG/DL (0.55-1.30) Estimat Glomerular Filtration Rate > 60 mL/min (>60) Glucose Level 75 MG/DL (74-106) Calcium Level 8.1 MG/DL (8.5-10.1) L Magnesium Level 1.7 MG/DL (1.8-2.4) L Monoscreen Pending TB Test (T-Spot) Pending TB Test Nil Control (T-Spot) Pending TB Test Panel A (T-Spot) Pending TB Test Panel B (T-Spot) Pending TB Test Positive Control (T-Spot) Pending Current Medications Medications (Trade) Dose Ordered Sig/Anna Route PRN Reason Start Time Stop Time Status Last Admin Dose Admin Acetaminophen (Tylenol) 650 mg Q4H PRN ORAL T>100.5 05/23/17 12:15 06/22/17 12:14 05/27/17 23:56 Azithromycin 500 mg/Dextrose 275 ml @ 275 mls/hr Q24HRS IV 05/25/17 16:00 05/31/17 16:59 05/27/17 16:08 Cefazolin Sodium 50 ml @ 100 mls/hr Q8HR@0200,1000,1800 IV 05/27/17 10:00 06/03/17 09:59 05/28/17 09:22 Dextrose (Dextrose 50%) STAT PRN IV Hypoglycemia 05/23/17 12:15 06/22/17 12:14 Fluoxetine HCl (PROzac) 20 mg DAILY ORAL 05/27/17 09:00 06/26/17 08:59 Folic Acid (Folate) 1 mg DAILY ORAL 05/27/17 09:00 06/26/17 08:59 05/27/17 09:28 Heparin Sodium (Porcine) (Heparin 5000 units/ml) 5,000 units EVERY 12 HOURS SUBQ 05/23/17 21:00 06/22/17 20:59 05/26/17 20:31 Magnesium Oxide (Mag-Ox 400mg) 400 mg THREE TIMES A DAY ORAL 05/28/17 09:00 05/31/17 08:59 Metronidazole (Flagyl) 250 mg Q6HR ORAL 05/25/17 16:00 06/01/17 15:59 05/28/17 11:49 Mirtazapine (Remeron) 7.5 mg BEDTIME ORAL 05/27/17 21:00 06/26/17 20:59 Morphine Sulfate (Morphine Sulfate) 2 mg Q4H PRN IVP Severe Pain (Pain Scale 7-10) 05/23/17 12:15 05/30/17 12:14 Ondansetron HCl (Zofran) 4 mg Q6H PRN IVP Nausea & Vomiting 05/23/17 12:15 06/22/17 12:14 Polyethylene Glycol (Miralax) 17 gm DAILYPRN PRN ORAL Constipation 05/23/17 12:15 06/22/17 12:14 Ranitidine HCl (Zantac) 150 mg BEDTIME ORAL 05/26/17 21:00 06/25/17 20:59 05/26/17 20:30 AMARIS BRIGGS M.D. May 28, 2017 13:17
[2017-05-28] MEDS ORDERED: Tubing IV Secondary IV ONE (15:10)
[2017-05-28] MEDS ORDERED: NS 500ML ONE (15:10)
[2017-05-28 16:00] VITALS: BP 127/80
[2017-05-28] MEDS: Azithromycin 500 MG in D5W 275 ML IV SCH (16:51)
--- NOTE | 2017-05-28 18:22 | Pulmonology Progress Note ---
Assessment/Plan Problems: (1) Atypical pneumonia (2) Severe protein-calorie malnutrition (3) Interstitial lung disease (4) Diarrhea Assessment/Plan PPD negative HIV negative Id note appreciated diarrhea improving might need lung biopsy /open lung biopsy if AFB X3 negative Subjective ROS Limited/Unobtainable: No Constitutional: Reports: no symptoms HEENT: Repors: no symptoms Respiratory: Reports: no symptoms Allergies: Coded Allergies: No Known Allergies (Unverified , 05/23/17) Objective Last 24 Hour Vital Signs Date Time Temp Pulse Resp B/P (MAP) Pulse Ox O2 Delivery O2 Flow Rate FiO2 05/28/17 16:00 100.2 100 18 127/80 90 05/28/17 12:39 97.5 104 18 128/68 100 05/28/17 08:51 82 18 Room Air 21 05/28/17 08:00 97.7 75 20 123/84 94 05/28/17 04:00 Nasal Cannula 2.0 05/28/17 03:55 97.0 71 19 115/77 95 05/28/17 00:55 97.5 05/28/17 00:00 97.5 79 18 101/65 95 05/28/17 00:00 Nasal Cannula 2.0 05/27/17 20:00 Nasal Cannula 2.0 05/27/17 20:00 101.7 93 18 134/91 93 05/27/17 19:57 88 20 Room Air 21 Intake and Output 05/28/17 05/29/17 19:00 07:00 Intake Total 720 ml Output Total 700 ml Balance 20 ml Intake Oral 720 ml Output Urine Total 700 ml # Bowel Movements 2 General Appearance: WD/WN, cachetic HEENT: normocephalic, EOMI Respiratory/Chest: chest wall non-tender Cardiovascular: normal peripheral pulses, normal rate Abdomen: normal bowel sounds, no scars Skin: no ulcers 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 Laboratory Tests 05/28/17 04:45: White Blood Count 4.2L, Red Blood Count 4.08L, Hemoglobin 12.5L, Hematocrit 37.3L, Mean Corpuscular Volume 91, Mean Corpuscular Hemoglobin 30.7, Mean Corpuscular Hemoglobin Concent 33.5, Red Cell Distribution Width 12.5, Platelet Count 181, Mean Platelet Volume 8.3, Neutrophils (%) (Auto) , Lymphocytes (%) ( Auto) , Monocytes (%) (Auto) , Eosinophils (%) (Auto) , Basophils (%) (Auto) , Differential Total Cells Counted 100, Neutrophils % (Manual) 95H, Lymphocytes % (Manual) 3L, Monocytes % (Manual) 2, Eosinophils % (Manual) 0, Basophils % ( Manual) 0, Band Neutrophils 0, Platelet Estimate Adequate, Platelet Morphology Normal, Clumped Platelets 2+, Red Blood Cell Morphology Normal, Sodium Level 134L, Potassium Level 3.7, Chloride Level 101, Carbon Dioxide Level 28, Anion Gap 5, Blood Urea Nitrogen 21H, Creatinine 0.9, Estimat Glomerular Filtration Rate > 60, Glucose Level 75, Calcium Level 8.1L, Magnesium Level 1.7L, Monoscreen [Pending] 05/28/17 09:10: TB Test (T-Spot) [Pending], TB Test Nil Control (T-Spot) [Pending], TB Test Panel A (T-Spot) [Pending], TB Test Panel B (T-Spot) [Pending], TB Test Positive Control (T-Spot) [Pending] Current Medications Medications (Trade) Dose Ordered Sig/Anna Route PRN Reason Start Time Stop Time Status Last Admin Dose Admin Acetaminophen (Tylenol) 650 mg Q4H PRN ORAL T>100.5 05/23/17 12:15 06/22/17 12:14 05/28/17 16:50 Azithromycin 500 mg/Dextrose 275 ml @ 275 mls/hr Q24HRS IV 05/25/17 16:00 05/31/17 16:59 05/28/17 16:51 Cefazolin Sodium 50 ml @ 100 mls/hr Q8HR@0200,1000,1800 IV 05/27/17 10:00 06/03/17 09:59 05/28/17 09:22 Dextrose (Dextrose 50%) STAT PRN IV Hypoglycemia 05/23/17 12:15 06/22/17 12:14 Fluoxetine HCl (PROzac) 20 mg DAILY ORAL 05/27/17 09:00 06/26/17 08:59 Folic Acid (Folate) 1 mg DAILY ORAL 05/27/17 09:00 06/26/17 08:59 05/27/17 09:28 Heparin Sodium (Porcine) (Heparin 5000 units/ml) 5,000 units EVERY 12 HOURS SUBQ 05/23/17 21:00 06/22/17 20:59 05/26/17 20:31 Magnesium Oxide (Mag-Ox 400mg) 400 mg THREE TIMES A DAY ORAL 05/28/17 09:00 05/31/17 08:59 Metronidazole (Flagyl) 250 mg Q6HR ORAL 05/25/17 16:00 06/01/17 15:59 05/28/17 11:49 Mirtazapine (Remeron) 7.5 mg BEDTIME ORAL 05/27/17 21:00 06/26/17 20:59 Morphine Sulfate (Morphine Sulfate) 2 mg Q4H PRN IVP Severe Pain (Pain Scale 7-10) 05/23/17 12:15 05/30/17 12:14 Ondansetron HCl (Zofran) 4 mg Q6H PRN IVP Nausea & Vomiting 05/23/17 12:15 06/22/17 12:14 Polyethylene Glycol (Miralax) 17 gm DAILYPRN PRN ORAL Constipation 05/23/17 12:15 06/22/17 12:14 Ranitidine HCl (Zantac) 150 mg BEDTIME ORAL 05/26/17 21:00 06/25/17 20:59 05/26/17 20:30 TAMMIE MARY May 28, 2017 18:22
[2017-05-28 20:00] VITALS: BP 108/73
[2017-05-29] VITALS: BP 125/82
[2017-05-29] MEDS: ceFAZolin 2gm/50ml Premix 50 ML IV SCH ×2 (02:17→10:16)
[2017-05-29 04:00] VITALS: BP 112/89
[2017-05-29] MEDS: metroNIDAZOLE 250mg tab ORAL SCH ×3 (05:54→18:00)
[2017-05-29 07:29] LABS: ANION GAP 5 mmol/L (5-15); BLOOD UREA NITROGEN 21 mg/dL (7-18); CALCIUM 7.7 MG/DL (8.5-10.1); CARBON DIOXIDE 28 MMOL/L (21-32); CHLORIDE 101 MMOL/L (98-107); CREATININE 0.9 MG/DL (0.55-1.30); POTASSIUM 3.5 MMOL/L (3.5-5.1); SODIUM 134 MMOL/L (136-145)
[2017-05-29 07:35] LABS: BASOPHILS % (AUTO) 1.8 % (0.0-2.0); EOSINOPHILS % (AUTO) 0.4 % (0.0-3.0); HEMATOCRIT 31.8 % (42.0-52.0); HEMOGLOBIN 10.7 G/DL (14.2-18.0); LYMPHOCYTES % (AUTO) 22.6 % (20.0-45.0); MEAN CORPUSCULAR VOLUME 91 FL (80-99); MONOCYTES % (AUTO) 3.3 % (1.0-10.0); NEUTROPHILS % (AUTO) 71.9 % (45.0-75.0); PLATELET COUNT 127 K/UL (150-450); RED BLOOD COUNT 3.47 M/UL (4.70-6.10); RED CELL DISTRIBUTION WIDTH 12.3 % (11.6-14.8); WHITE BLOOD COUNT 5.4 K/UL (4.8-10.8)
[2017-05-29 08:00] VITALS: BP 122/75
--- NOTE | 2017-05-29 08:13 | Pulmonology Progress Note ---
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0 05/28/17 16:00 100.2 100 18 127/80 90 05/28/17 12:39 97.5 104 18 128/68 100 05/28/17 08:51 82 18 Room Air 21 General Appearance: no acute distress, cachetic, other - A/A/O x 3 male HEENT: normocephalic, atraumatic, anicteric, mucous membranes moist Respiratory/Chest: lungs clear - with moderate air exchange , no respiratory distress, no accessory muscle use Cardiovascular: normal rate Abdomen: normal bowel sounds, soft, non tender Extremities: no edema, pedal pulses normal Neurologic/Psychiatric: alert, oriented x 3, responsive Musculoskeletal: normal muscle bulk Laboratory Tests 05/28/17 09:10: TB Test (T-Spot) [Pending], TB Test Nil Control (T-Spot) [Pending], TB Test Panel A (T-Spot) [Pending], TB Test Panel B (T-Spot) [Pending], TB Test Positive Control (T-Spot) [Pending] 05/29/17 05:30: White Blood Count 5.4, Red Blood Count 3.47L, Hemoglobin 10.7L, Hematocrit 31.8L , Mean Corpuscular Volume 91, Mean Corpuscular Hemoglobin 30.9, Mean Corpuscular Hemoglobin Concent 33.8, Red Cell Distribution Width 12.3, Platelet Count 127L, Mean Platelet Volume 6.4L, Neutrophils (%) (Auto) 71.9, Lymphocytes (%) (Auto) 22.6, Monocytes (%) (Auto) 3.3, Eosinophils (%) (Auto) 0.4, Basophils (%) (Auto) 1.8, Sodium Level 134L, Potassium Level 3.5, Chloride Level 101, Carbon Dioxide Level 28, Anion Gap 5, Blood Urea Nitrogen 21H, Creatinine 0.9, Estimat Glomerular Filtration Rate > 60, Glucose Level 89, Calcium Level 7.7L Current Medications Medications (Trade) Dose Ordered Sig/Anna Route PRN Reason Start Time Stop Time Status Last Admin Dose Admin Acetaminophen (Tylenol) 650 mg Q4H PRN ORAL T>100.5 05/23/17 12:15 06/22/17 12:14 05/28/17 16:50 Azithromycin 500 mg/Dextrose 275 ml @ 275 mls/hr Q24HRS IV 05/25/17 16:00 05/31/17 16:59 05/28/17 16:51 Cefazolin Sodium 50 ml @ 100 mls/hr Q8HR@0200,1000,1800 IV 05/27/17 10:00 06/03/17 09:59 05/29/17 02:17 Dextrose (Dextrose 50%) STAT PRN IV Hypoglycemia 05/23/17 12:15 06/22/17 12:14 Divalproex Sodium (Depakote ER) 1,000 mg EVERY 12 HOURS ORAL 05/29/17 09:00 06/28/17 08:59 Fluoxetine HCl (PROzac) 20 mg DAILY ORAL 05/27/17 09:00 06/26/17 08:59 Folic Acid (Folate) 1 mg DAILY ORAL 05/27/17 09:00 06/26/17 08:59 05/27/17 09:28 Heparin Sodium (Porcine) (Heparin 5000 units/ml) 5,000 units EVERY 12 HOURS SUBQ 05/23/17 21:00 06/22/17 20:59 12/14/17 21:15 Magnesium Oxide (Mag-Ox 400mg) 400 mg THREE TIMES A DAY ORAL 05/28/17 09:00 05/31/17 08:59 Metronidazole (Flagyl) 250 mg Q6HR ORAL 05/25/17 16:00 06/01/17 15:59 05/29/17 05:54 Morphine Sulfate (Morphine Sulfate) 2 mg Q4H PRN IVP Severe Pain (Pain Scale 7-10) 05/23/17 12:15 05/30/17 12:14 Ondansetron HCl (Zofran) 4 mg Q6H PRN IVP Nausea & Vomiting 05/23/17 12:15 06/22/17 12:14 Polyethylene Glycol (Miralax) 17 gm DAILYPRN PRN ORAL Constipation 05/23/17 12:15 06/22/17 12:14 Ranitidine HCl (Zantac) 150 mg BEDTIME ORAL 05/26/17 21:00 06/25/17 20:59 05/26/17 20:30 [facility]letonN[facility] Holley NP May 29, 2017 08:13
[2017-05-29] MEDS: Magnesium Oxide 400mg tab ORAL SCH ×3 (09:00→18:00)
[2017-05-29] MEDS: Depakote ER 500mg tab ORAL SCH ×2 (09:00→21:00)
[2017-05-29] MEDS: Heparin 5000 units/ml inj SUBQ SCH ×2 (09:00→21:00)
--- NOTE | 2017-05-29 09:15 | Progress Note ---
DATE: 05/28/2017 SUBJECTIVE: The patient continues to be demanding, making several complaints. Hostile towards the staff and uncooperative. The patient is tearful, labile, angry. MENTAL STATUS EXAMINATION: The patient is alert and oriented x3. Mood is irritable. Affect is constricted. Congruent with mood. Thought process is concrete. Thought content, no suicidal or homicidal ideations. PLAN: The patient is not taking medication. We will discontinue the Prozac and Remeron. We will start Depakote 1000 mg at bedtime for mood stability. Amanda Mina M.D. DR: MANUEL JOB#: [id number] CC:
--- NOTE | 2017-05-29 10:27 | GI Progress Note ---
Assessment/Plan Problems: (1) Generalized weakness ICD Codes: R53.1 - Weakness SNOMED: 83994777 (2) Anemia ICD Codes: D64.9 - Anemia, unspecified SNOMED: 916211223 (3) Severe protein-calorie malnutrition ICD Codes: E43 - Unspecified severe protein-calorie malnutrition SNOMED: 999844447 (4) Atypical pneumonia ICD Codes: J18.9 - Pneumonia, unspecified organism SNOMED: 570887619 (5) Protein calorie malnutrition ICD Codes: E46 - Unspecified protein-calorie malnutrition SNOMED: 032161483 Qualifiers: Qualified Codes: E44.0 - Moderate protein-calorie malnutrition (6) Diarrhea ICD Codes: R19.7 - Diarrhea, unspecified SNOMED: 45891634 Qualifiers: Qualified Codes: R19.7 - Diarrhea, unspecified Status: unchanged Status Narrative Discussed with Dr. Gamez. Assessment/Plan CT chest reviewed. cdiff negative iron levels unremarkable HIV negative airborne r/o TB KUB r/o chronic pancreatitis >> unremarkable OB stool r/o GI bleed fu O&P, add stool culture monitor H&H, prn transfusions Imodium prn ppi folate PO H2B fu labs, Tissue Transglutaminase IgA r/o celiac Subjective Subjective refusing medications diarrhea Objective Last 24 Hour Vital Signs Date Time Temp Pulse Resp B/P (MAP) Pulse Ox O2 Delivery O2 Flow Rate FiO2 05/29/17 08:00 99.3 97 18 122/75 94 05/29/17 07:55 94 22 2.0 28 05/29/17 04:00 98.9 90 18 112/89 91 05/29/17 02:28 92 22 2.0 28 05/29/17 00:00 98.6 92 18 125/82 90 05/28/17 20:00 98.2 92 18 108/73 93 05/28/17 17:49 99.0 05/28/17 16:00 100.2 100 18 127/80 90 05/28/17 12:39 97.5 104 18 128/68 100 Laboratory Tests Test 05/29/17 05:30 White Blood Count 5.4 K/UL (4.8-10.8) Red Blood Count 3.47 M/UL (4.70-6.10) L Hemoglobin 10.7 G/DL (14.2-18.0) L Hematocrit 31.8 % (42.0-52.0) L Mean Corpuscular Volume 91 FL (80-99) Mean Corpuscular Hemoglobin 30.9 PG (27.0-31.0) Mean Corpuscular Hemoglobin Concent 33.8 G/DL (32.0-36.0) Red Cell Distribution Width 12.3 % (11.6-14.8) Platelet Count 127 K/UL (150-450) L Mean Platelet Volume 6.4 FL (6.5-10.1) L Neutrophils (%) (Auto) 71.9 % (45.0-75.0) Lymphocytes (%) (Auto) 22.6 % (20.0-45.0) Monocytes (%) (Auto) 3.3 % (1.0-10.0) Eosinophils (%) (Auto) 0.4 % (0.0-3.0) Basophils (%) (Auto) 1.8 % (0.0-2.0) Sodium Level 134 MMOL/L (136-145) L Potassium Level 3.5 MMOL/L (3.5-5.1) Chloride Level 101 MMOL/L (98-107) Carbon Dioxide Level 28 MMOL/L (21-32) Anion Gap 5 mmol/L (5-15) Blood Urea Nitrogen 21 mg/dL (7-18) H Creatinine 0.9 MG/DL (0.55-1.30) Estimat Glomerular Filtration Rate > 60 mL/min (>60) Glucose Level 89 MG/DL (74-106) Calcium Level 7.7 MG/DL (8.5-10.1) L Height (Feet): 5 Height (Inches): 10.00 Weight (Pounds): 90 General Appearance: WD/WN, no apparent distress, alert Cardiovascular: normal rate Respiratory/Chest: normal breath sounds, no respiratory distress Abdominal Exam: normal bowel sounds, non tender, soft Extremities: normal range of motion, non-tender Alyssa Felix N.P. May 29, 2017 10:27
[2017-05-29] MEDS ORDERED: Loperamide 2mg cap ORAL PRN (10:30)
[2017-05-29 12:00] VITALS: BP 109/64
--- NOTE | 2017-05-29 14:22 | Infectious Diseases Prog Note ---
Assessment/Plan Assessment/Plan ASSESSMENT: The patient is a 41-year-old male with Weight loss Fever x 1 Pneumonia. . Sp Cx : MSSA RO fungal and atypical mycobacteria (TB is possible, less likely) AFBx 2 : Neg Crytpo and blastomycosis: Neg histo : did not resulted due lab issues CT: Extensive interstitial and airspace parenchymal disease, and honeycomb appearance of much of the lower lobe and right middle lobe interstitial component, HIV negative Chronic diarrhea? pancreatic insufficiency due to chronic alcohol abuse PLAN: Cont Zithromax d$# 5 / 5 and and Ancef d# 3 pt refusing Flagyl d# 4 12 SP vancomycin, cefepime d# 5, Monitor CBC Monitor BMP. Monitor cultures (blood, stool). Stool for ova and parasite. Sputum for AFB x3 and mycobacterium TB PCR Serology (coccidio , ) GI following for the patient's chronic diarrhea. Subjective Constitutional: Denies: no symptoms, fever, chills, fatigue, anorexia, drenching sweats, other Allergies: Coded Allergies: No Known Allergies (Unverified , 05/23/17) Subjective Sp fever x 1 Objective Vital Signs Last 24 Hour Vital Signs Date Time Temp Pulse Resp B/P (MAP) Pulse Ox O2 Delivery O2 Flow Rate FiO2 05/29/17 12:00 98.6 76 19 109/64 92 05/29/17 08:00 99.3 97 18 122/75 94 05/29/17 07:55 94 22 2.0 28 05/29/17 04:00 98.9 90 18 112/89 91 05/29/17 02:28 92 22 2.0 28 05/29/17 00:00 98.6 92 18 125/82 90 05/28/17 20:00 98.2 92 18 108/73 93 05/28/17 17:49 99.0 05/28/17 16:00 100.2 100 18 127/80 90 Height (Feet): 5 Height (Inches): 10.00 Weight (Pounds): 90 Laboratory Tests Test 05/29/17 05:30 White Blood Count 5.4 K/UL (4.8-10.8) Red Blood Count 3.47 M/UL (4.70-6.10) L Hemoglobin 10.7 G/DL (14.2-18.0) L Hematocrit 31.8 % (42.0-52.0) L Mean Corpuscular Volume 91 FL (80-99) Mean Corpuscular Hemoglobin 30.9 PG (27.0-31.0) Mean Corpuscular Hemoglobin Concent 33.8 G/DL (32.0-36.0) Red Cell Distribution Width 12.3 % (11.6-14.8) Platelet Count 127 K/UL (150-450) L Mean Platelet Volume 6.4 FL (6.5-10.1) L Neutrophils (%) (Auto) 71.9 % (45.0-75.0) Lymphocytes (%) (Auto) 22.6 % (20.0-45.0) Monocytes (%) (Auto) 3.3 % (1.0-10.0) Eosinophils (%) (Auto) 0.4 % (0.0-3.0) Basophils (%) (Auto) 1.8 % (0.0-2.0) Sodium Level 134 MMOL/L (136-145) L Potassium Level 3.5 MMOL/L (3.5-5.1) Chloride Level 101 MMOL/L (98-107) Carbon Dioxide Level 28 MMOL/L (21-32) Anion Gap 5 mmol/L (5-15) Blood Urea Nitrogen 21 mg/dL (7-18) H Creatinine 0.9 MG/DL (0.55-1.30) Estimat Glomerular Filtration Rate > 60 mL/min (>60) Glucose Level 89 MG/DL (74-106) Calcium Level 7.7 MG/DL (8.5-10.1) L Current Medications Medications (Trade) Dose Ordered Sig/Anna Route PRN Reason Start Time Stop Time Status Last Admin Dose Admin Acetaminophen (Tylenol) 650 mg Q4H PRN ORAL T>100.5 05/23/17 12:15 06/22/17 12:14 05/28/17 16:50 Azithromycin 500 mg/Dextrose 275 ml @ 275 mls/hr Q24HRS IV 05/25/17 16:00 05/31/17 16:59 05/28/17 16:51 Cefazolin Sodium 50 ml @ 100 mls/hr Q8HR@0200,1000,1800 IV 05/27/17 10:00 06/03/17 09:59 05/29/17 10:16 Dextrose (Dextrose 50%) STAT PRN IV Hypoglycemia 05/23/17 12:15 06/22/17 12:14 Divalproex Sodium (Depakote ER) 1,000 mg EVERY 12 HOURS ORAL 05/29/17 09:00 06/28/17 08:59 Fluoxetine HCl (PROzac) 20 mg DAILY ORAL 05/27/17 09:00 06/26/17 08:59 Folic Acid (Folate) 1 mg DAILY ORAL 05/27/17 09:00 06/26/17 08:59 05/29/17 10:16 Heparin Sodium (Porcine) (Heparin 5000 units/ml) 5,000 units EVERY 12 HOURS SUBQ 05/23/17 21:00 06/22/17 20:59 05/28/17 21:15 Loperamide HCl (Imodium) 2 mg Q4H PRN ORAL Diarrhea 05/29/17 10:30 06/28/17 10:29 05/29/17 13:53 Magnesium Oxide (Mag-Ox 400mg) 400 mg THREE TIMES A DAY ORAL 05/28/17 09:00 05/31/17 08:59 Metronidazole (Flagyl) 250 mg Q6HR ORAL 05/25/17 16:00 06/01/17 15:59 05/29/17 05:54 Morphine Sulfate (Morphine Sulfate) 2 mg Q4H PRN IVP Severe Pain (Pain Scale 7-10) 05/23/17 12:15 05/30/17 12:14 Ondansetron HCl (Zofran) 4 mg Q6H PRN IVP Nausea & Vomiting 05/23/17 12:15 06/22/17 12:14 Polyethylene Glycol (Miralax) 17 gm DAILYPRN PRN ORAL Constipation 05/23/17 12:15 06/22/17 12:14 Ranitidine HCl (Zantac) 150 mg BEDTIME ORAL 05/26/17 21:00 06/25/17 20:59 05/26/17 20:30 AMARIS BRIGGS M.D. May 29, 2017 14:22
[2017-05-29 15:47] VITALS: BP 118/76
[2017-05-29] MEDS: Azithromycin 500 MG in D5W 275 ML IV SCH (15:54)
[2017-05-29] MEDS: ceFAZolin sod 2 GM in D5W 55 ML IVPB SCH (18:00)
[2017-05-29 20:00] VITALS: BP 134/82
--- NOTE | 2017-05-29 20:00 | Progress Note ---
DATE: 05/29/2017 SUBJECTIVE: The patient is calm and cooperative. No behavioral issues. Noncompliant with medication, only wishes IV antibiotics. The patient is having poor insight and judgment to his mental condition. MENTAL STATUS EXAMINATION: The patient is alert and oriented x3. Mood is dysphoric. Affect is constricted. Congruent with mood. Thought process is concrete. Thought content, no suicidal, or homicidal ideations. ASSESSMENT: 1. Personality disorder. 2. Mood disorder. PLAN: The patient is refusing psych medications. Amanda Mina M.D. DR: MANUEL JOB#: [id number] CC:
[2017-05-30] VITALS: BP 114/64
[2017-05-30] MEDS: ceFAZolin sod 2 GM in D5W 55 ML IVPB SCH ×3 (00:56→18:14)
[2017-05-30] MEDS: metroNIDAZOLE 250mg tab ORAL SCH ×4 (00:56→18:15)
[2017-05-30 04:00] VITALS: BP 137/93
[2017-05-30 07:52] LABS: HEMATOCRIT 33.5 % (42.0-52.0); HEMOGLOBIN 11.5 G/DL (14.2-18.0); MEAN CORPUSCULAR VOLUME 91 FL (80-99); PLATELET COUNT 182 K/UL (150-450); RED BLOOD COUNT 3.66 M/UL (4.70-6.10); RED CELL DISTRIBUTION WIDTH 12.5 % (11.6-14.8); WHITE BLOOD COUNT 4.7 K/UL (4.8-10.8)
[2017-05-30 08:00] VITALS: BP 127/75
[2017-05-30 08:19] LABS: ANION GAP 2 mmol/L (5-15); BLOOD UREA NITROGEN 21 mg/dL (7-18); CALCIUM 8.2 MG/DL (8.5-10.1); CARBON DIOXIDE 31 MMOL/L (21-32); CHLORIDE 102 MMOL/L (98-107); CREATININE 0.8 MG/DL (0.55-1.30); POTASSIUM 3.7 MMOL/L (3.5-5.1); SODIUM 135 MMOL/L (136-145)
[2017-05-30] MEDS: Magnesium Oxide 400mg tab ORAL SCH ×3 (09:37→18:15)
[2017-05-30] MEDS: Heparin 5000 units/ml inj SUBQ SCH ×2 (09:40→21:24)
[2017-05-30] MEDS: Depakote ER 500mg tab ORAL SCH ×2 (09:40→21:00)
[2017-05-30 12:00] VITALS: BP 146/94
--- NOTE | 2017-05-30 12:38 | Pulmonology Progress Note ---
Assessment/Plan Assessment/Plan ASSESSMENT MSSA PNA Interstitial lung disease acute hypoxemic RF requiring VM severe protein calorie malnutrition diarrhea alcohol dependence depression PLAN OF CARE MS floor isolation supplemental titrate O2 to keep sat above 92%, pulmonary toilet sputum AFB x 3 ( 2 negative) PPD negative CT chest noted sputum + Staph aureus abx ID follows r/o fungal and atypical HIV test negative venous Duplex BLE psych follows, optimized psych med regimen Diarrhea improved stool cx and stool C dif negative ip counsel recommendation re dietary supplements implemented continue with Folic acid, Thiamine, 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 probably will need lung biopsy if AFB x 3 negative case discussed and evaluated by supervising physician Subjective Allergies: Coded Allergies: No Known Allergies (Unverified , 05/23/17) Subjective afebrile, no leukocytosis no watery diarrhea, + cough, weakness placed on on VM 40% pulse oximetry stable Objective Last 24 Hour Vital Signs Date Time Temp Pulse Resp B/P (MAP) Pulse Ox O2 Delivery O2 Flow Rate FiO2 05/30/17 12:00 97.7 100 20 146/94 95 05/30/17 08:27 Venturi Mask 8.0 40 05/30/17 08:24 91 20 Venturi Mask 8.0 40 05/30/17 08:01 Venturi Mask 8.0 40 05/30/17 08:00 97.3 92 20 127/75 95 05/30/17 04:00 97.0 83 18 137/93 95 Venturi Mask 05/30/17 04:00 95 Venturi Mask 8.0 40 05/30/17 00:00 91 Venturi Mask 8.0 40 05/30/17 00:00 96.4 85 18 114/64 91 Venturi Mask 05/29/17 22:30 98.0 05/29/17 22:15 98.0 05/29/17 20:00 100.8 109 16 134/82 Nasal Cannula 2.0 05/29/17 20:00 100.4 92 Nasal Cannula 3.0 05/29/17 19:40 103 24 Nasal Cannula 2.0 28 05/29/17 15:47 97.9 87 19 118/76 97 Intake and Output 05/30/17 05/31/17 19:00 07:00 Intake Total 55 ml Balance 55 ml IV Total 55 ml Objective General Appearance: no acute distress, cachetic, A/A/O x 3 male HEENT: normocephalic, atraumatic, anicteric, mucous membranes moist, VM 40% FiO2 Respiratory/Chest: lungs clear with moderate air exchange , no respiratory distress, no accessory muscle use Cardiovascular: normal rate Abdomen: normal bowel sounds, soft, non tender Extremities: no edema, pedal pulses normal Neurologic/Psychiatric: alert, oriented x 3, responsive Musculoskeletal: normal muscle bulk Laboratory Tests 05/30/17 06:45: White Blood Count 4.7L, Red Blood Count 3.66L, Hemoglobin 11.5L, Hematocrit 33.5L, Mean Corpuscular Volume 91, Mean Corpuscular Hemoglobin 31.5H, Mean Corpuscular Hemoglobin Concent 34.4, Red Cell Distribution Width 12.5, Platelet Count 182, Mean Platelet Volume 6.7, Neutrophils (%) (Auto) , Lymphocytes (%) ( Auto) , Monocytes (%) (Auto) , Eosinophils (%) (Auto) , Basophils (%) (Auto) , Differential Total Cells Counted 100, Neutrophils % (Manual) 85H, Lymphocytes % (Manual) 5L, Monocytes % (Manual) 7, Eosinophils % (Manual) 0, Basophils % ( Manual) 0, Band Neutrophils 3, Platelet Estimate Adequate, Platelet Morphology Normal, Red Blood Cell Morphology Normal, Sodium Level 135L, Potassium Level 3.7 , Chloride Level 102, Carbon Dioxide Level 31, Anion Gap 2L, Blood Urea Nitrogen 21H, Creatinine 0.8, Estimat Glomerular Filtration Rate > 60, Glucose Level 91, Calcium Level 8.2L Current Medications Medications (Trade) Dose Ordered Sig/Anna Route PRN Reason Start Time Stop Time Status Last Admin Dose Admin Acetaminophen (Tylenol) 650 mg Q4H PRN ORAL T>100.5 05/23/17 12:15 06/22/17 12:14 05/29/17 21:16 Azithromycin 500 mg/Dextrose 275 ml @ 275 mls/hr Q24HRS IV 05/25/17 16:00 05/31/17 16:59 05/29/17 15:54 Cefazolin Sodium 2 gm/Dextrose 55 ml @ 110 mls/hr Q8HR@0200,1000,1800 IVPB 05/29/17 18:00 06/05/17 17:59 05/30/17 10:49 Dextrose (Dextrose 50%) STAT PRN IV Hypoglycemia 05/23/17 12:15 06/22/17 12:14 Divalproex Sodium (Depakote ER) 1,000 mg EVERY 12 HOURS ORAL 05/29/17 09:00 06/28/17 08:59 Fluoxetine HCl (PROzac) 20 mg DAILY ORAL 05/27/17 09:00 06/26/17 08:59 Folic Acid (Folate) 1 mg DAILY ORAL 05/27/17 09:00 06/26/17 08:59 05/30/17 09:37 Heparin Sodium (Porcine) (Heparin 5000 units/ml) 5,000 units EVERY 12 HOURS SUBQ 05/23/17 21:00 06/22/17 20:59 05/28/17 21:15 Loperamide HCl (Imodium) 2 mg Q4H PRN ORAL Diarrhea 05/29/17 10:30 06/28/17 10:29 05/29/17 13:53 Magnesium Oxide (Mag-Ox 400mg) 400 mg THREE TIMES A DAY ORAL 05/28/17 09:00 05/31/17 08:59 05/30/17 09:37 Metronidazole (Flagyl) 250 mg Q6HR ORAL 05/25/17 16:00 06/01/17 15:59 05/30/17 05:41 Ondansetron HCl (Zofran) 4 mg Q6H PRN IVP Nausea & Vomiting 05/23/17 12:15 06/22/17 12:14 Polyethylene Glycol (Miralax) 17 gm DAILYPRN PRN ORAL Constipation 05/23/17 12:15 06/22/17 12:14 Ranitidine HCl (Zantac) 150 mg BEDTIME ORAL 05/26/17 21:00 06/25/17 20:59 05/26/17 20:30 [facility]Analy Holley NP May 30, 2017 12:38
--- NOTE | 2017-05-30 13:54 | Infectious Diseases Prog Note ---
Assessment/Plan Assessment/Plan ASSESSMENT: The patient is a 41-year-old male with Weight loss Fever x 1 Pneumonia. . Sp Cx : MSSA RO fungal and atypical mycobacteria (TB is possible, less likely) AFBx 2 : Neg Crytpo and blastomycosis: Neg histo : did not resulted due lab issues CT: Extensive interstitial and airspace parenchymal disease, and honeycomb appearance of much of the lower lobe and right middle lobe interstitial component, HIV negative Chronic diarrhea resolved, stool Cx : neg ? pancreatic insufficiency due to chronic alcohol abuse PLAN: Cont and Ancef d# 4 / 10 12/16 SP Zithromax d$# 5 / 5 SP ( refusing) Flagyl d# 4 12/ SP vancomycin, cefepime d# 5, Monitor CBC Monitor BMP. Monitor cultures (blood) Stool for ova and parasite. Sputum for AFB x3 and mycobacterium TB PCR Serology (coccidio , ) GI following for the patient's chronic diarrhea. Subjective Constitutional: Denies: no symptoms, fever, chills, fatigue, anorexia, drenching sweats, other Allergies: Coded Allergies: No Known Allergies (Unverified , 05/23/17) Subjective Sp fever x 1 Objective Vital Signs Last 24 Hour Vital Signs Date Time Temp Pulse Resp B/P (MAP) Pulse Ox O2 Delivery O2 Flow Rate FiO2 05/30/17 12:01 Venturi Mask 8.0 40 05/30/17 12:00 97.7 100 20 146/94 95 05/30/17 08:27 Venturi Mask 8.0 40 05/30/17 08:24 91 20 Venturi Mask 8.0 40 05/30/17 08:01 Venturi Mask 8.0 40 05/30/17 08:00 97.3 92 20 127/75 95 05/30/17 04:00 97.0 83 18 137/93 95 Venturi Mask 05/30/17 04:00 95 Venturi Mask 8.0 40 05/30/17 00:00 91 Venturi Mask 8.0 40 05/30/17 00:00 96.4 85 18 114/64 91 Venturi Mask 05/29/17 22:30 98.0 05/29/17 22:15 98.0 05/29/17 20:00 100.8 109 16 134/82 Nasal Cannula 2.0 05/29/17 20:00 100.4 92 Nasal Cannula 3.0 05/29/17 19:40 103 24 Nasal Cannula 2.0 28 05/29/17 15:47 97.9 87 19 118/76 97 Height (Feet): 5 Height (Inches): 10.00 Weight (Pounds): 90 HEENT: anicteric Respiratory/Chest: no respiratory distress Cardiovascular: no gallop/murmur Abdomen: no mass Laboratory Tests Test 05/30/17 06:45 White Blood Count 4.7 K/UL (4.8-10.8) L Red Blood Count 3.66 M/UL (4.70-6.10) L Hemoglobin 11.5 G/DL (14.2-18.0) L Hematocrit 33.5 % (42.0-52.0) L Mean Corpuscular Volume 91 FL (80-99) Mean Corpuscular Hemoglobin 31.5 PG (27.0-31.0) H Mean Corpuscular Hemoglobin Concent 34.4 G/DL (32.0-36.0) Red Cell Distribution Width 12.5 % (11.6-14.8) Platelet Count 182 K/UL (150-450) Mean Platelet Volume 6.7 FL (6.5-10.1) Neutrophils (%) (Auto) % (45.0-75.0) Lymphocytes (%) (Auto) % (20.0-45.0) Monocytes (%) (Auto) % (1.0-10.0) Eosinophils (%) (Auto) % (0.0-3.0) Basophils (%) (Auto) % (0.0-2.0) Differential Total Cells Counted 100 Neutrophils % (Manual) 85 % (45-75) H Lymphocytes % (Manual) 5 % (20-45) L Monocytes % (Manual) 7 % (1-10) Eosinophils % (Manual) 0 % (0-3) Basophils % (Manual) 0 % (0-2) Band Neutrophils 3 % (0-8) Platelet Estimate Adequate Platelet Morphology Normal Red Blood Cell Morphology Normal Sodium Level 135 MMOL/L (136-145) L Potassium Level 3.7 MMOL/L (3.5-5.1) Chloride Level 102 MMOL/L (98-107) Carbon Dioxide Level 31 MMOL/L (21-32) Anion Gap 2 mmol/L (5-15) L Blood Urea Nitrogen 21 mg/dL (7-18) H Creatinine 0.8 MG/DL (0.55-1.30) Estimat Glomerular Filtration Rate > 60 mL/min (>60) Glucose Level 91 MG/DL (74-106) Calcium Level 8.2 MG/DL (8.5-10.1) L Current Medications Medications (Trade) Dose Ordered Sig/Anna Route PRN Reason Start Time Stop Time Status Last Admin Dose Admin Acetaminophen (Tylenol) 650 mg Q4H PRN ORAL T>100.5 05/23/17 12:15 06/22/17 12:14 05/29/17 21:16 Azithromycin 500 mg/Dextrose 275 ml @ 275 mls/hr Q24HRS IV 05/25/17 16:00 05/31/17 16:59 05/29/17 15:54 Cefazolin Sodium 2 gm/Dextrose 55 ml @ 110 mls/hr Q8HR@0200,1000,1800 IVPB 05/29/17 18:00 06/05/17 17:59 05/30/17 10:49 Dextrose (Dextrose 50%) STAT PRN IV Hypoglycemia 05/23/17 12:15 06/22/17 12:14 Divalproex Sodium (Depakote ER) 1,000 mg EVERY 12 HOURS ORAL 05/29/17 09:00 06/28/17 08:59 Fluoxetine HCl (PROzac) 20 mg DAILY ORAL 05/27/17 09:00 06/26/17 08:59 Folic Acid (Folate) 1 mg DAILY ORAL 05/27/17 09:00 06/26/17 08:59 05/30/17 09:37 Heparin Sodium (Porcine) (Heparin 5000 units/ml) 5,000 units EVERY 12 HOURS SUBQ 05/23/17 21:00 06/22/17 20:59 05/28/17 21:15 Loperamide HCl (Imodium) 2 mg Q4H PRN ORAL Diarrhea 05/29/17 10:30 06/28/17 10:29 05/29/17 13:53 Magnesium Oxide (Mag-Ox 400mg) 400 mg THREE TIMES A DAY ORAL 05/28/17 09:00 05/31/17 08:59 05/30/17 09:37 Metronidazole (Flagyl) 250 mg Q6HR ORAL 05/25/17 16:00 06/01/17 15:59 05/30/17 12:48 Multivitamins (Multivitamins) 1 tab DAILY ORAL 05/31/17 09:00 06/30/17 08:59 Ondansetron HCl (Zofran) 4 mg Q6H PRN IVP Nausea & Vomiting 05/23/17 12:15 06/22/17 12:14 Polyethylene Glycol (Miralax) 17 gm DAILYPRN PRN ORAL Constipation 05/23/17 12:15 06/22/17 12:14 Ranitidine HCl (Zantac) 150 mg BEDTIME ORAL 05/26/17 21:00 06/25/17 20:59 05/26/17 20:30 Thiamine HCl (Vitamin B1) 100 mg DAILY ORAL 05/31/17 09:00 06/30/17 08:59 AMARIS BRIGGS M.D. May 30, 2017 13:54
[2017-05-30 16:00] VITALS: BP 128/80
[2017-05-30] MEDS ORDERED: Tubing IV Secondary IV ONE (16:16)
--- NOTE | 2017-05-30 18:10 | General Progress Note ---
Assessment/Plan Assessment/Plan Assessment - Failure to thrive - anorexia - anemia - PNA - Diarrhea Recommendations - Push po - OOB - Follow labs - MVI Subjective Allergies: Coded Allergies: No Known Allergies (Unverified , 05/23/17) Subjective no abdominal complaints poor appetite no N/V Objective Last 24 Hour Vital Signs Date Time Temp Pulse Resp B/P (MAP) Pulse Ox O2 Delivery O2 Flow Rate FiO2 05/30/17 16:00 97.7 100 20 128/80 92 05/30/17 12:01 Venturi Mask 8.0 40 05/30/17 12:00 97.7 100 20 146/94 95 05/30/17 08:27 Venturi Mask 8.0 40 05/30/17 08:24 91 20 Venturi Mask 8.0 40 05/30/17 08:01 Venturi Mask 8.0 40 05/30/17 08:00 97.3 92 20 127/75 95 05/30/17 04:00 97.0 83 18 137/93 95 Venturi Mask 05/30/17 04:00 95 Venturi Mask 8.0 40 05/30/17 00:00 91 Venturi Mask 8.0 40 05/30/17 00:00 96.4 85 18 114/64 91 Venturi Mask 05/29/17 22:30 98.0 05/29/17 22:15 98.0 05/29/17 20:00 100.8 109 16 134/82 Nasal Cannula 2.0 05/29/17 20:00 100.4 92 Nasal Cannula 3.0 05/29/17 19:40 103 24 Nasal Cannula 2.0 28 Intake and Output 05/30/17 05/31/17 19:00 07:00 Intake Total 55 ml Balance 55 ml IV Total 55 ml Laboratory Tests 05/30/17 06:45: White Blood Count 4.7L, Red Blood Count 3.66L, Hemoglobin 11.5L, Hematocrit 33.5L, Mean Corpuscular Volume 91, Mean Corpuscular Hemoglobin 31.5H, Mean Corpuscular Hemoglobin Concent 34.4, Red Cell Distribution Width 12.5, Platelet Count 182, Mean Platelet Volume 6.7, Neutrophils (%) (Auto) , Lymphocytes (%) ( Auto) , Monocytes (%) (Auto) , Eosinophils (%) (Auto) , Basophils (%) (Auto) , Differential Total Cells Counted 100, Neutrophils % (Manual) 85H, Lymphocytes % (Manual) 5L, Monocytes % (Manual) 7, Eosinophils % (Manual) 0, Basophils % ( Manual) 0, Band Neutrophils 3, Platelet Estimate Adequate, Platelet Morphology Normal, Red Blood Cell Morphology Normal, Sodium Level 135L, Potassium Level 3.7 , Chloride Level 102, Carbon Dioxide Level 31, Anion Gap 2L, Blood Urea Nitrogen 21H, Creatinine 0.8, Estimat Glomerular Filtration Rate > 60, Glucose Level 91, Calcium Level 8.2L Height (Feet): 5 Height (Inches): 10.00 Weight (Pounds): 90 Objective Thin AA man NCAT supple CTA RRR Abd soft ND no edema CELESTINO KIMBROUGH May 30, 2017 18:10
[2017-05-30 20:00] VITALS: BP 130/90
[2017-05-31] VITALS: BP 119/75
--- NOTE | 2017-05-31 00:28 | General Progress Note ---
Assessment/Plan Assessment/Plan Assessment - Failure to thrive - anorexia - anemia - PNA - Diarrhea Recommendations - Push po - OOB - Follow labs - MVI Subjective Allergies: Coded Allergies: No Known Allergies (Unverified , 05/23/17) Subjective no abdominal complaints poor appetite no N/V Objective Last 24 Hour Vital Signs Date Time Temp Pulse Resp B/P (MAP) Pulse Ox O2 Delivery O2 Flow Rate FiO2 05/30/17 20:00 100.9 105 21 130/90 94 05/30/17 20:00 99.9 94 Venturi Mask 14.0 55 05/30/17 18:46 19 98 Venturi Mask 14.0 55 05/30/17 16:00 97.7 100 20 128/80 92 05/30/17 12:01 Venturi Mask 8.0 40 05/30/17 12:00 97.7 100 20 146/94 95 05/30/17 08:27 Venturi Mask 8.0 40 05/30/17 08:24 91 20 Venturi Mask 8.0 40 05/30/17 08:01 Venturi Mask 8.0 40 05/30/17 08:00 97.3 92 20 127/75 95 05/30/17 04:00 97.0 83 18 137/93 95 Venturi Mask 05/30/17 04:00 95 Venturi Mask 8.0 40 Laboratory Tests 05/30/17 06:45: White Blood Count 4.7L, Red Blood Count 3.66L, Hemoglobin 11.5L, Hematocrit 33.5L, Mean Corpuscular Volume 91, Mean Corpuscular Hemoglobin 31.5H, Mean Corpuscular Hemoglobin Concent 34.4, Red Cell Distribution Width 12.5, Platelet Count 182, Mean Platelet Volume 6.7, Neutrophils (%) (Auto) , Lymphocytes (%) ( Auto) , Monocytes (%) (Auto) , Eosinophils (%) (Auto) , Basophils (%) (Auto) , Differential Total Cells Counted 100, Neutrophils % (Manual) 85H, Lymphocytes % (Manual) 5L, Monocytes % (Manual) 7, Eosinophils % (Manual) 0, Basophils % ( Manual) 0, Band Neutrophils 3, Platelet Estimate Adequate, Platelet Morphology Normal, Red Blood Cell Morphology Normal, Sodium Level 135L, Potassium Level 3.7 , Chloride Level 102, Carbon Dioxide Level 31, Anion Gap 2L, Blood Urea Nitrogen 21H, Creatinine 0.8, Estimat Glomerular Filtration Rate > 60, Glucose Level 91, Calcium Level 8.2L Height (Feet): 5 Height (Inches): 10.00 Weight (Pounds): 90 Objective Thin AA man NCAT supple CTA RRR soft ND NT no edema non focal CELESTINO KIMBROUGH May 31, 2017 00:28
[2017-05-31] MEDS: ceFAZolin sod 2 GM in D5W 55 ML IVPB SCH ×3 (01:09→17:13)
[2017-05-31] MEDS: metroNIDAZOLE 250mg tab ORAL SCH ×4 (01:09→17:14)
[2017-05-31 04:00] VITALS: BP 112/89
[2017-05-31 08:00] VITALS: BP 121/76
[2017-05-31] MEDS: Depakote ER 500mg tab ORAL SCH ×2 (09:33→21:00)
[2017-05-31] MEDS: Heparin 5000 units/ml inj SUBQ SCH ×2 (09:35→21:18)
[2017-05-31] MEDS: Thiamine 100mg tab ORAL SCH (09:35)
--- NOTE | 2017-05-31 10:26 | Pulmonology Progress Note ---
Assessment/Plan Assessment/Plan ASSESSMENT MSSA PNA Interstitial lung disease acute hypoxemic RF requiring VM severe protein calorie malnutrition diarrhea alcohol dependence depression PLAN OF CARE MS floor isolation supplemental titrate O2 to keep sat above 92%, wean from VM as tolerated pulmonary toilet sputum AFB x 3 ( 2 negative) PPD negative CT chest noted sputum + Staph aureus abx ID follows r/o fungal and atypical HIV test negative Monospot negative negative Crypto, Histo, Blasto T spot pending venous Duplex BLE CXR in am psych follows, optimized psych med regimen Diarrhea improved stool cx and stool C dif negative operations project 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 recommendation re dietary supplements implemented continue with Folic acid, Thiamine, MVI Enamel Dipper on ETOH cessation probably will need lung biopsy if AFB x 3 negative DVT prophylaxis case discussed and evaluated by supervising physician Subjective Allergies: Coded Allergies: No Known Allergies (Unverified , 05/23/17) Subjective low grade fever last night, currently afebrile, no leukocytosis diarrhea improving + cough, weakness on VM,FiO2 40% Objective Last 24 Hour Vital Signs Date Time Temp Pulse Resp B/P (MAP) Pulse Ox O2 Delivery O2 Flow Rate FiO2 05/31/17 08:21 Venturi Mask 8.0 40 05/31/17 08:21 94 20 Venturi Mask 8.0 40 05/31/17 08:00 97.7 80 20 121/76 100 05/31/17 04:00 98.9 69 21 112/89 100 05/31/17 04:00 99.9 100 Venturi Mask 14.0 55 05/31/17 00:00 98.6 78 20 119/75 99 05/31/17 00:00 99.9 99 Venturi Mask 14.0 55 05/30/17 20:00 100.9 105 21 130/90 94 05/30/17 20:00 99.9 94 Venturi Mask 14.0 55 05/30/17 18:46 19 98 Venturi Mask 14.0 55 05/30/17 16:00 97.7 100 20 128/80 92 05/30/17 12:01 Venturi Mask 8.0 40 05/30/17 12:00 97.7 100 20 146/94 95 Objective General Appearance: no acute distress, cachetic, A/A/O x 3 male HEENT: normocephalic, atraumatic, anicteric, mucous membranes moist, VM 40% FiO2 Respiratory/Chest: lungs clear with moderate air exchange , no respiratory distress, no accessory muscle use Cardiovascular: normal rate Abdomen: normal bowel sounds, soft, non tender Extremities: no edema, pedal pulses normal Neurologic/Psychiatric: alert, oriented x 3, responsive Musculoskeletal: normal muscle bulk Current Medications Medications (Trade) Dose Ordered Sig/Anna Route PRN Reason Start Time Stop Time Status Last Admin Dose Admin Acetaminophen (Tylenol) 650 mg Q4H PRN ORAL T>100.5 05/23/17 12:15 06/22/17 12:14 05/29/17 21:16 Cefazolin Sodium 2 gm/Dextrose 55 ml @ 110 mls/hr Q8HR@0200,1000,1800 IVPB 05/29/17 18:00 06/05/17 17:59 05/31/17 09:27 Dextrose (Dextrose 50%) STAT PRN IV Hypoglycemia 05/23/17 12:15 06/22/17 12:14 Divalproex Sodium (Depakote ER) 1,000 mg EVERY 12 HOURS ORAL 05/29/17 09:00 06/28/17 08:59 Fluoxetine HCl (PROzac) 20 mg DAILY ORAL 05/27/17 09:00 06/26/17 08:59 Folic Acid (Folate) 1 mg DAILY ORAL 05/27/17 09:00 06/26/17 08:59 05/31/17 09:27 Heparin Sodium (Porcine) (Heparin 5000 units/ml) 5,000 units EVERY 12 HOURS SUBQ 05/23/17 21:00 06/22/17 20:59 05/30/17 21:24 Loperamide HCl (Imodium) 2 mg Q4H PRN ORAL Diarrhea 05/29/17 10:30 06/28/17 10:29 05/29/17 13:53 Metronidazole (Flagyl) 250 mg Q6HR ORAL 05/25/17 16:00 06/01/17 15:59 05/31/17 06:22 Multivitamins (Multivitamins) 1 tab DAILY ORAL 05/31/17 09:00 06/30/17 08:59 05/31/17 09:27 Ondansetron HCl (Zofran) 4 mg Q6H PRN IVP Nausea & Vomiting 05/23/17 12:15 06/22/17 12:14 Polyethylene Glycol (Miralax) 17 gm DAILYPRN PRN ORAL Constipation 05/23/17 12:15 06/22/17 12:14 Ranitidine HCl (Zantac) 150 mg BEDTIME ORAL 05/26/17 21:00 06/25/17 20:59 05/26/17 20:30 Thiamine HCl (Vitamin B1) 100 mg DAILY ORAL 05/31/17 09:00 06/30/17 08:59 Bob ([facility]),Analy PATEL May 31, 2017 10:26
[2017-05-31 12:00] VITALS: BP 126/85
--- NOTE | 2017-05-31 14:34 | General Progress Note ---
Assessment/Plan Assessment/Plan Assessment - Failure to thrive - anorexia - anemia - PNA - Diarrhea Recommendations - Push po - OOB - Follow labs - MVI Subjective Allergies: Coded Allergies: No Known Allergies (Unverified , 05/23/17) Subjective no abdominal complaints poor appetite resting comfortably Objective Last 24 Hour Vital Signs Date Time Temp Pulse Resp B/P (MAP) Pulse Ox O2 Delivery O2 Flow Rate FiO2 05/31/17 12:01 Non-Rebreather 15.0 05/31/17 12:00 97.7 92 20 126/85 94 05/31/17 08:21 Venturi Mask 8.0 40 05/31/17 08:21 94 20 Venturi Mask 8.0 40 05/31/17 08:01 Non-Rebreather 15.0 05/31/17 08:00 97.7 80 20 121/76 100 05/31/17 04:00 98.9 69 21 112/89 100 05/31/17 04:00 99.9 100 Venturi Mask 14.0 55 05/31/17 00:00 98.6 78 20 119/75 99 05/31/17 00:00 99.9 99 Venturi Mask 14.0 55 05/30/17 20:00 100.9 105 21 130/90 94 05/30/17 20:00 99.9 94 Venturi Mask 14.0 55 05/30/17 18:46 19 98 Venturi Mask 14.0 55 05/30/17 16:00 97.7 100 20 128/80 92 Intake and Output 05/31/17 06/01/17 19:00 07:00 Intake Total 55 ml Balance 55 ml IV Total 55 ml Height (Feet): 5 Height (Inches): 10.00 Weight (Pounds): 90 Objective Thin AA man NCAT supple CTA RRR Abd soft ND no edema CELESTINO KIMBROUGH May 31, 2017 14:34
[2017-05-31 16:00] VITALS: BP 128/101
[2017-05-31 20:00] VITALS: BP 135/81
--- NOTE | 2017-05-31 23:20 | General Progress Note ---
Assessment/Plan Status: stable Subjective Date patient seen: May 31, 2017 Neurologic/Psychiatric: Reports: anxiety, depressed, emotional problems Allergies: Coded Allergies: No Known Allergies (Unverified , 05/23/17) Objective Last 24 Hour Vital Signs Date Time Temp Pulse Resp B/P (MAP) Pulse Ox O2 Delivery O2 Flow Rate FiO2 05/31/17 20:16 97 Venturi Mask 14.0 55 05/31/17 20:16 93 18 Venturi Mask 14.0 55 05/31/17 20:16 Venturi Mask 14.0 55 05/31/17 20:00 98.7 96 20 135/81 96 05/31/17 16:01 Non-Rebreather 15.0 05/31/17 16:00 97.5 100 20 128/101 97 05/31/17 12:01 Non-Rebreather 15.0 05/31/17 12:00 97.7 92 20 126/85 94 05/31/17 08:21 Venturi Mask 8.0 40 05/31/17 08:21 94 20 Venturi Mask 8.0 40 05/31/17 08:01 Non-Rebreather 15.0 05/31/17 08:00 97.7 80 20 121/76 100 05/31/17 04:00 98.9 69 21 112/89 100 05/31/17 04:00 99.9 100 Venturi Mask 14.0 55 05/31/17 00:00 98.6 78 20 119/75 99 05/31/17 00:00 99.9 99 Venturi Mask 14.0 55 Intake and Output 05/31/17 06/01/17 19:00 07:00 Intake Total 410 ml Output Total 500 ml Balance -90 ml Intake Oral 300 ml IV Total 110 ml Output Urine Total 500 ml Height (Feet): 5 Height (Inches): 10.00 Weight (Pounds): 90 General Appearance: WD/WN, no apparent distress, alert, agitated Neurologic: alert, oriented x 3, responsive Amanda Mina M.D. May 31, 2017 23:20
[2017-06-01] VITALS: BP 123/79
[2017-06-01] MEDS: metroNIDAZOLE 250mg tab ORAL SCH ×2 (01:05→05:55)
[2017-06-01] MEDS: ceFAZolin sod 2 GM in D5W 55 ML IVPB SCH ×2 (01:05→10:30)
[2017-06-01 04:00] VITALS: BP 116/77
[2017-06-01] MEDS: Depakote ER 500mg tab ORAL SCH ×3 (07:58→21:32)
[2017-06-01] MEDS: Heparin 5000 units/ml inj SUBQ SCH ×2 (08:00→21:38)
[2017-06-01] MEDS: Thiamine 100mg tab ORAL SCH (08:00)
[2017-06-01 08:15] VITALS: BP 108/66
--- NOTE | 2017-06-01 08:32 | General Progress Note ---
Assessment/Plan Status: stable Assessment/Plan ASSESSMENT MSSA PNA Interstitial lung disease acute hypoxemic RF requiring VM severe protein calorie malnutrition diarrhea alcohol dependence depression PLAN OF CARE isolation supplemental titrate O2 to keep sat above 92%, wean from VM as tolerated pulmonary toilet sputum AFB x 3 ( 2 negative) Once cleared by ID, may be off the isolation current ID and pulmonary workup Subjective ROS Limited/Unobtainable: No HEENT: Reports: no symptoms Cardiovascular: Reports: no symptoms Respiratory: Reports: shortness of breath Genitourinary: Reports: no symptoms Allergies: Coded Allergies: No Known Allergies (Unverified , 05/23/17) Objective Last 24 Hour Vital Signs Date Time Temp Pulse Resp B/P (MAP) Pulse Ox O2 Delivery O2 Flow Rate FiO2 06/01/17 04:00 99.0 78 20 116/77 100 06/01/17 04:00 100 Non-Rebreather 15.0 06/01/17 00:00 98.9 89 21 123/79 98 06/01/17 00:00 98 Non-Rebreather 15.0 05/31/17 20:16 97 Venturi Mask 14.0 55 05/31/17 20:16 93 18 Venturi Mask 14.0 55 05/31/17 20:16 Venturi Mask 14.0 55 05/31/17 20:00 98.7 96 20 135/81 96 05/31/17 20:00 96 Non-Rebreather 15.0 05/31/17 16:01 Non-Rebreather 15.0 05/31/17 16:00 97.5 100 20 128/101 97 05/31/17 12:01 Non-Rebreather 15.0 05/31/17 12:00 97.7 92 20 126/85 94 Height (Feet): 5 Height (Inches): 10.00 Weight (Pounds): 90 General Appearance: no apparent distress EENT: PERRL/EOMI Neck: supple Cardiovascular: normal rate Respiratory/Chest: crackles/rales Abdomen: soft Extremities: non-tender Darrian Londono MD Jun 01, 2017 08:32
[2017-06-01 09:14] LABS: ANION GAP 2 mmol/L (5-15); BLOOD UREA NITROGEN 19 mg/dL (7-18); CALCIUM 7.9 MG/DL (8.5-10.1); CARBON DIOXIDE 33 MMOL/L (21-32); CHLORIDE 99 MMOL/L (98-107); CREATININE 0.7 MG/DL (0.55-1.30); POTASSIUM 3.2 MMOL/L (3.5-5.1); SODIUM 134 MMOL/L (136-145)
[2017-06-01 09:26] LABS: HEMATOCRIT 30.9 % (42.0-52.0); MEAN CORPUSCULAR VOLUME 90 FL (80-99); PLATELET COUNT 162 K/UL (150-450); RED BLOOD COUNT 3.42 M/UL (4.70-6.10); RED CELL DISTRIBUTION WIDTH 12.9 % (11.6-14.8); WHITE BLOOD COUNT 5.1 K/UL (4.8-10.8)
--- NOTE | 2017-06-01 10:10 | Infectious Diseases Prog Note ---
Assessment/Plan Assessment/Plan ASSESSMENT: The patient is a 41-year-old male with Weight loss Fever x 1 Pneumonia. . Sp Cx : MSSA RO fungal and atypical mycobacteria (TB is possible, less likely) AFBx 2 : Neg T Spot : neg Crytpo and blastomycosis: Neg histo : did not resulted due lab issues CT: Extensive interstitial and airspace parenchymal disease, and honeycomb appearance of much of the lower lobe and right middle lobe interstitial component, HIV negative Chronic diarrhea resolved, stool Cx : neg ? pancreatic insufficiency due to chronic alcohol abuse PLAN: Cont and Ancef d# 6 / 10 05/30 SP Zithromax d$# 5 / 5 06/01 SP ( refusing) Flagyl d# 46 05/27 SP vancomycin, cefepime d# 5, Monitor CBC Monitor BMP. Monitor cultures (blood) Stool for ova and parasite. Sputum for AFB x3 and mycobacterium TB PCR Serology (coccidio , ) GI following for the patient's chronic diarrhea. Xcray : P Subjective Constitutional: Denies: no symptoms, fever, chills, fatigue, anorexia, drenching sweats, other Allergies: Coded Allergies: No Known Allergies (Unverified , 05/23/17) Subjective Sp fever x 1 Objective Vital Signs Last 24 Hour Vital Signs Date Time Temp Pulse Resp B/P (MAP) Pulse Ox O2 Delivery O2 Flow Rate FiO2 06/01/17 08:15 97.7 81 21 108/66 96 06/01/17 04:00 99.0 78 20 116/77 100 06/01/17 04:00 100 Non-Rebreather 15.0 06/01/17 00:00 98.9 89 21 123/79 98 06/01/17 00:00 98 Non-Rebreather 15.0 05/31/17 20:16 97 Venturi Mask 14.0 55 05/31/17 20:16 93 18 Venturi Mask 14.0 55 05/31/17 20:16 Venturi Mask 14.0 55 05/31/17 20:00 98.7 96 20 135/81 96 05/31/17 20:00 96 Non-Rebreather 15.0 05/31/17 16:01 Non-Rebreather 15.0 05/31/17 16:00 97.5 100 20 128/101 97 05/31/17 12:01 Non-Rebreather 15.0 05/31/17 12:00 97.7 92 20 126/85 94 Height (Feet): 5 Height (Inches): 10.00 Weight (Pounds): 90 HEENT: mucous membranes moist Respiratory/Chest: no respiratory distress Cardiovascular: regular rhythm Abdomen: no organomegaly Laboratory Tests Test 06/01/17 07:20 White Blood Count 5.1 K/UL (4.8-10.8) Red Blood Count 3.42 M/UL (4.70-6.10) L Hemoglobin 10.0 G/DL (14.2-18.0) L Hematocrit 30.9 % (42.0-52.0) L Mean Corpuscular Volume 90 FL (80-99) Mean Corpuscular Hemoglobin 29.4 PG (27.0-31.0) Mean Corpuscular Hemoglobin Concent 32.5 G/DL (32.0-36.0) Red Cell Distribution Width 12.9 % (11.6-14.8) Platelet Count 162 K/UL (150-450) Mean Platelet Volume 8.6 FL (6.5-10.1) Neutrophils (%) (Auto) % (45.0-75.0) Lymphocytes (%) (Auto) % (20.0-45.0) Monocytes (%) (Auto) % (1.0-10.0) Eosinophils (%) (Auto) % (0.0-3.0) Basophils (%) (Auto) % (0.0-2.0) Neutrophils % (Manual) Pending Lymphocytes % (Manual) Pending Platelet Estimate Pending Platelet Morphology Pending Sodium Level 134 MMOL/L (136-145) L Potassium Level 3.2 MMOL/L (3.5-5.1) L Chloride Level 99 MMOL/L (98-107) Carbon Dioxide Level 33 MMOL/L (21-32) H Anion Gap 2 mmol/L (5-15) L Blood Urea Nitrogen 19 mg/dL (7-18) H Creatinine 0.7 MG/DL (0.55-1.30) Estimat Glomerular Filtration Rate > 60 mL/min (>60) Glucose Level 79 MG/DL (74-106) Calcium Level 7.9 MG/DL (8.5-10.1) L Current Medications Medications (Trade) Dose Ordered Sig/Anna Route PRN Reason Start Time Stop Time Status Last Admin Dose Admin Acetaminophen (Tylenol) 650 mg Q4H PRN ORAL T>100.5 05/23/17 12:15 06/22/17 12:14 05/29/17 21:16 Cefazolin Sodium 2 gm/Dextrose 55 ml @ 110 mls/hr Q8HR@0200,1000,1800 IVPB 05/29/17 18:00 06/05/17 17:59 06/01/17 01:05 Dextrose (Dextrose 50%) STAT PRN IV Hypoglycemia 05/23/17 12:15 06/22/17 12:14 Divalproex Sodium (Depakote ER) 1,000 mg EVERY 12 HOURS ORAL 05/29/17 09:00 06/28/17 08:59 Fluoxetine HCl (PROzac) 20 mg DAILY ORAL 05/27/17 09:00 06/26/17 08:59 Folic Acid (Folate) 1 mg DAILY ORAL 05/27/17 09:00 06/26/17 08:59 05/31/17 09:27 Heparin Sodium (Porcine) (Heparin 5000 units/ml) 5,000 units EVERY 12 HOURS SUBQ 05/23/17 21:00 06/22/17 20:59 05/31/17 21:18 Loperamide HCl (Imodium) 2 mg Q4H PRN ORAL Diarrhea 05/29/17 10:30 06/28/17 10:29 05/29/17 13:53 Metronidazole (Flagyl) 250 mg Q6HR ORAL 05/25/17 16:00 06/01/17 15:59 06/01/17 05:55 Multivitamins (Multivitamins) 1 tab DAILY ORAL 05/31/17 09:00 06/30/17 08:59 05/31/17 09:27 Ondansetron HCl (Zofran) 4 mg Q6H PRN IVP Nausea & Vomiting 05/23/17 12:15 06/22/17 12:14 Polyethylene Glycol (Miralax) 17 gm DAILYPRN PRN ORAL Constipation 05/23/17 12:15 06/22/17 12:14 Ranitidine HCl (Zantac) 150 mg BEDTIME ORAL 05/26/17 21:00 06/25/17 20:59 05/26/17 20:30 Thiamine HCl (Vitamin B1) 100 mg DAILY ORAL 05/31/17 09:00 06/30/17 08:59 AMARIS BRIGGS M.D. Jun 01, 2017 10:10
--- NOTE | 2017-06-01 10:41 | GI Progress Note ---
Assessment/Plan Problems: (1) Generalized weakness ICD Codes: R53.1 - Weakness SNOMED: 19277775 (2) Anemia ICD Codes: D64.9 - Anemia, unspecified SNOMED: 160224059 (3) Severe protein-calorie malnutrition ICD Codes: E43 - Unspecified severe protein-calorie malnutrition SNOMED: 296974067 (4) Atypical pneumonia ICD Codes: J18.9 - Pneumonia, unspecified organism SNOMED: 660941201 (5) Protein calorie malnutrition ICD Codes: E46 - Unspecified protein-calorie malnutrition SNOMED: 010313971 Qualifiers: Qualified Codes: E44.0 - Moderate protein-calorie malnutrition (6) Diarrhea ICD Codes: R19.7 - Diarrhea, unspecified SNOMED: 49485372 Qualifiers: Qualified Codes: R19.7 - Diarrhea, unspecified Status: unchanged Status Narrative Discussed with Dr. Gamez. Assessment/Plan CT chest reviewed. cdiff negative iron levels unremarkable HIV negative airborne r/o TB KUB r/o chronic pancreatitis >> unremarkable OB stool r/o GI bleed >> negative fu stool cx monitor H&H, prn transfusions Imodium prn ppi folate PO H2B fu labs, Tissue Transglutaminase IgA r/o celiac Subjective Subjective refusing medications diarrhea Objective Last 24 Hour Vital Signs Date Time Temp Pulse Resp B/P (MAP) Pulse Ox O2 Delivery O2 Flow Rate FiO2 06/01/17 08:15 97.7 81 21 108/66 96 06/01/17 04:00 99.0 78 20 116/77 100 06/01/17 04:00 100 Non-Rebreather 15.0 06/01/17 00:00 98.9 89 21 123/79 98 06/01/17 00:00 98 Non-Rebreather 15.0 05/31/17 20:16 97 Venturi Mask 14.0 55 05/31/17 20:16 93 18 Venturi Mask 14.0 55 05/31/17 20:16 Venturi Mask 14.0 55 05/31/17 20:00 98.7 96 20 135/81 96 05/31/17 20:00 96 Non-Rebreather 15.0 05/31/17 16:01 Non-Rebreather 15.0 05/31/17 16:00 97.5 100 20 128/101 97 12/17/17 12:01 Non-Rebreather 15.0 05/31/17 12:00 97.7 92 20 126/85 94 Intake and Output 06/01/17 06/02/17 19:00 07:00 Intake Total 240 ml Balance 240 ml Intake Oral 240 ml Laboratory Tests Test 06/01/17 07:20 White Blood Count 5.1 K/UL (4.8-10.8) Red Blood Count 3.42 M/UL (4.70-6.10) L Hemoglobin 10.0 G/DL (14.2-18.0) L Hematocrit 30.9 % (42.0-52.0) L Mean Corpuscular Volume 90 FL (80-99) Mean Corpuscular Hemoglobin 29.4 PG (27.0-31.0) Mean Corpuscular Hemoglobin Concent 32.5 G/DL (32.0-36.0) Red Cell Distribution Width 12.9 % (11.6-14.8) Platelet Count 162 K/UL (150-450) Mean Platelet Volume 8.6 FL (6.5-10.1) Neutrophils (%) (Auto) % (45.0-75.0) Lymphocytes (%) (Auto) % (20.0-45.0) Monocytes (%) (Auto) % (1.0-10.0) Eosinophils (%) (Auto) % (0.0-3.0) Basophils (%) (Auto) % (0.0-2.0) Differential Total Cells Counted 100 Neutrophils % (Manual) 94 % (45-75) H Lymphocytes % (Manual) 4 % (20-45) L Monocytes % (Manual) 1 % (1-10) Eosinophils % (Manual) 1 % (0-3) Basophils % (Manual) 0 % (0-2) Band Neutrophils 0 % (0-8) Platelet Estimate Adequate Platelet Morphology Giant Platelets 1+ Hypochromasia 1+ Sodium Level 134 MMOL/L (136-145) L Potassium Level 3.2 MMOL/L (3.5-5.1) L Chloride Level 99 MMOL/L (98-107) Carbon Dioxide Level 33 MMOL/L (21-32) H Anion Gap 2 mmol/L (5-15) L Blood Urea Nitrogen 19 mg/dL (7-18) H Creatinine 0.7 MG/DL (0.55-1.30) Estimat Glomerular Filtration Rate > 60 mL/min (>60) Glucose Level 79 MG/DL (74-106) Calcium Level 7.9 MG/DL (8.5-10.1) L Height (Feet): 5 Height (Inches): 10.00 Weight (Pounds): 90 General Appearance: WD/WN, no apparent distress, alert Cardiovascular: normal rate Respiratory/Chest: normal breath sounds, no respiratory distress Abdominal Exam: normal bowel sounds, non tender, soft Extremities: normal range of motion, non-tender Alyssa Felix N.P. Jun 01, 2017 10:41
--- NOTE | 2017-06-01 11:12 | Pulmonology Progress Note ---
Assessment/Plan Problems: (1) Acute hypoxemic respiratory failure (2) Interstitial lung disease (3) Atypical pneumonia (4) Generalized weakness (5) Anemia (6) Protein calorie malnutrition (7) Diarrhea Assessment/Plan -ABG -Optimize pulmonary hygiene/mobilize as tolerated -Titrate down FiO2 to keep SaO2 > 90% -RTC and PRN HHN's -Abx per ID, F/U AFB # 3 -ILD w/u sent: inflammatory serologies ordered (ESR, CRP, JOHANNA, ANCA, RF, CCP) -TTE and BNP -Will need bronchoscopy and biopsy once ruled out -DVT Px: Hep SQ -Monitor volumes Subjective Allergies: Coded Allergies: No Known Allergies (Unverified , 05/23/17) Subjective AFVSS, remains on VM + cough + SOB, no F/C Objective Last 24 Hour Vital Signs Date Time Temp Pulse Resp B/P (MAP) Pulse Ox O2 Delivery O2 Flow Rate FiO2 06/01/17 08:15 97.7 81 21 108/66 96 06/01/17 04:00 99.0 78 20 116/77 100 06/01/17 04:00 100 Non-Rebreather 15.0 06/01/17 00:00 98.9 89 21 123/79 98 06/01/17 00:00 98 Non-Rebreather 15.0 05/31/17 20:16 97 Venturi Mask 14.0 55 05/31/17 20:16 93 18 Venturi Mask 14.0 55 05/31/17 20:16 Venturi Mask 14.0 55 05/31/17 20:00 98.7 96 20 135/81 96 05/31/17 20:00 96 Non-Rebreather 15.0 05/31/17 16:01 Non-Rebreather 15.0 05/31/17 16:00 97.5 100 20 128/101 97 05/31/17 12:01 Non-Rebreather 15.0 05/31/17 12:00 97.7 92 20 126/85 94 Intake and Output 06/01/17 06/02/17 19:00 07:00 Intake Total 240 ml Balance 240 ml Intake Oral 240 ml General Appearance: WD/WN, no acute distress HEENT: normocephalic, atraumatic, mucous membranes moist Respiratory/Chest: chest wall non-tender, no respiratory distress, crackles/ rales - scattered rales Cardiovascular: normal peripheral pulses, normal rate, regular rhythm Abdomen: normal bowel sounds, soft, non tender, no organomegaly, non distended Extremities: no cyanosis, no clubbing, no edema Laboratory Tests 06/01/17 07:20: White Blood Count 5.1, Red Blood Count 3.42L, Hemoglobin 10.0L, Hematocrit 30.9L , Mean Corpuscular Volume 90, Mean Corpuscular Hemoglobin 29.4, Mean Corpuscular Hemoglobin Concent 32.5, Red Cell Distribution Width 12.9, Platelet Count 162, Mean Platelet Volume 8.6, Neutrophils (%) (Auto) , Lymphocytes (%) ( Auto) , Monocytes (%) (Auto) , Eosinophils (%) (Auto) , Basophils (%) (Auto) , Differential Total Cells Counted 100, Neutrophils % (Manual) 94H, Lymphocytes % (Manual) 4L, Monocytes % (Manual) 1, Eosinophils % (Manual) 1, Basophils % ( Manual) 0, Band Neutrophils 0, Platelet Estimate Adequate, Platelet Morphology , Giant Platelets 1+, Hypochromasia 1+, Sodium Level 134L, Potassium Level 3.2L , Chloride Level 99, Carbon Dioxide Level 33H, Anion Gap 2L, Blood Urea Nitrogen 19H, Creatinine 0.7, Estimat Glomerular Filtration Rate > 60, Glucose Level 79, Calcium Level 7.9L Current Medications Medications (Trade) Dose Ordered Sig/Anna Route PRN Reason Start Time Stop Time Status Last Admin Dose Admin Acetaminophen (Tylenol) 650 mg Q4H PRN ORAL T>100.5 05/23/17 12:15 06/22/17 12:14 05/29/17 21:16 Cefazolin Sodium 2 gm/Dextrose 55 ml @ 110 mls/hr Q8HR@0200,1000,1800 IVPB 05/29/17 18:00 06/05/17 17:59 06/01/17 10:30 Dextrose (Dextrose 50%) STAT PRN IV Hypoglycemia 05/23/17 12:15 06/22/17 12:14 Divalproex Sodium (Depakote ER) 1,000 mg EVERY 12 HOURS ORAL 05/29/17 09:00 06/28/17 08:59 Fluoxetine HCl (PROzac) 20 mg DAILY ORAL 05/27/17 09:00 06/26/17 08:59 Folic Acid (Folate) 1 mg DAILY ORAL 05/27/17 09:00 06/26/17 08:59 05/31/17 09:27 Heparin Sodium (Porcine) (Heparin 5000 units/ml) 5,000 units EVERY 12 HOURS SUBQ 05/23/17 21:00 06/22/17 20:59 05/31/17 21:18 Loperamide HCl (Imodium) 2 mg Q4H PRN ORAL Diarrhea 05/29/17 10:30 06/28/17 10:29 05/29/17 13:53 Multivitamins (Multivitamins) 1 tab DAILY ORAL 05/31/17 09:00 06/30/17 08:59 05/31/17 09:27 Ondansetron HCl (Zofran) 4 mg Q6H PRN IVP Nausea & Vomiting 05/23/17 12:15 06/22/17 12:14 Polyethylene Glycol (Miralax) 17 gm DAILYPRN PRN ORAL Constipation 05/23/17 12:15 06/22/17 12:14 Ranitidine HCl (Zantac) 150 mg BEDTIME ORAL 05/26/17 21:00 06/25/17 20:59 05/26/17 20:30 Thiamine HCl (Vitamin B1) 100 mg DAILY ORAL 05/31/17 09:00 06/30/17 08:59 ALONA DAWKINS M.D. Jun 01, 2017 11:12
[2017-06-01 12:15] VITALS: BP 113/69
--- NOTE | 2017-06-01 13:31 | Diagnostic Imaging Report ---
Indication: Dyspnea Comparison: 05/25/2017 A single view chest radiograph was obtained. Findings: Diffuse lung disease, both interstitial and alveolar again demonstrated relatively stable in appearance. Heart size remains normal. Bones are unremarkable. IMPRESSION: Extensive lung disease unchanged
[2017-06-01 16:15] VITALS: BP 131/80
[2017-06-01] MEDS: ceFAZolin 2gm/50ml Premix 50 ML IV SCH ×2 (17:01→23:42)
[2017-06-01 20:00] VITALS: BP 129/82
--- NOTE | 2017-06-01 22:28 | General Progress Note ---
Assessment/Plan Assessment/Plan med noncompliance agitation abusive and hostile Subjective Date patient seen: Jun 01, 2017 Neurologic/Psychiatric: Reports: anxiety, depressed, emotional problems Allergies: Coded Allergies: No Known Allergies (Unverified , 05/23/17) Objective Last 24 Hour Vital Signs Date Time Temp Pulse Resp B/P (MAP) Pulse Ox O2 Delivery O2 Flow Rate FiO2 06/01/17 20:08 98 Venturi Mask 14.0 55 06/01/17 20:08 90 18 Venturi Mask 14.0 55 06/01/17 20:08 Venturi Mask 14.0 55 06/01/17 20:00 99.3 99 21 129/82 97 06/01/17 16:15 97.4 70 21 131/80 97 06/01/17 12:15 98.3 81 21 113/69 99 06/01/17 08:15 97.7 81 21 108/66 96 06/01/17 04:00 99.0 78 20 116/77 100 06/01/17 04:00 100 Non-Rebreather 15.0 06/01/17 00:00 98.9 89 21 123/79 98 06/01/17 00:00 98 Non-Rebreather 15.0 Intake and Output 06/01/17 06/02/17 19:00 07:00 Intake Total 480 ml Balance 480 ml Intake Oral 480 ml Laboratory Tests 06/01/17 07:20: White Blood Count 5.1, Red Blood Count 3.42L, Hemoglobin 10.0L, Hematocrit 30.9L , Mean Corpuscular Volume 90, Mean Corpuscular Hemoglobin 29.4, Mean Corpuscular Hemoglobin Concent 32.5, Red Cell Distribution Width 12.9, Platelet Count 162, Mean Platelet Volume 8.6, Neutrophils (%) (Auto) , Lymphocytes (%) ( Auto) , Monocytes (%) (Auto) , Eosinophils (%) (Auto) , Basophils (%) (Auto) , Differential Total Cells Counted 100, Neutrophils % (Manual) 94H, Lymphocytes % (Manual) 4L, Monocytes % (Manual) 1, Eosinophils % (Manual) 1, Basophils % ( Manual) 0, Band Neutrophils 0, Platelet Estimate Adequate, Platelet Morphology , Giant Platelets 1+, Hypochromasia 1+, Erythrocyte Sedimentation Rate 107H, Sodium Level 134L, Potassium Level 3.2L, Chloride Level 99, Carbon Dioxide Level 33H, Anion Gap 2L, Blood Urea Nitrogen 19H, Creatinine 0.7, Estimat Glomerular Filtration Rate > 60, Glucose Level 79, Calcium Level 7.9L, C- Reactive Protein, Quantitative 11.1H, Pro-B-Type Natriuretic Peptide 3117H 06/01/17 07:23: Rheumatoid Factor Screen [Pending], Cyclic Citrullinated Peptide IgG Ab [Pending ], Anti-Nuclear Antibody Screen [Pending], c-ANCA Titer [Pending], p-ANCA Titer [Pending] Height (Feet): 5 Height (Inches): 10.00 Weight (Pounds): 90 General Appearance: no apparent distress, alert Neurologic: alert, oriented x 3, depressed affect Amanda Mina M.D. Jun 01, 2017 22:27
[2017-06-02] VITALS: BP 129/76
[2017-06-02 04:00] VITALS: BP 130/45
[2017-06-02 07:22] LABS: HEMATOCRIT 28.3 % (42.0-52.0); HEMOGLOBIN 9.4 G/DL (14.2-18.0); MEAN CORPUSCULAR VOLUME 90 FL (80-99); PLATELET COUNT 127 K/UL (150-450); RED BLOOD COUNT 3.17 M/UL (4.70-6.10); RED CELL DISTRIBUTION WIDTH 12.6 % (11.6-14.8); WHITE BLOOD COUNT 5.5 K/UL (4.8-10.8)
[2017-06-02 07:25] LABS: ALANINE AMINOTRANSFERASE 8 U/L (12-78); ALBUMIN 0.7 G/DL (3.4-5.0); ALBUMIN/GLOBULIN RATIO 0.1 (1.0-2.7); ALKALINE PHOSPHATASE 179 U/L (46-116); ANION GAP 3 mmol/L (5-15); ASPARTATE AMINO TRANSFERASE 74 U/L (15-37); BILIRUBIN,TOTAL 0.2 MG/DL (0.2-1.0); BLOOD UREA NITROGEN 18 mg/dL (7-18); CALCIUM 7.6 MG/DL (8.5-10.1); CARBON DIOXIDE 31 MMOL/L (21-32); CHLORIDE 100 MMOL/L (98-107); CREATININE 0.7 MG/DL (0.55-1.30); POTASSIUM 3.2 MMOL/L (3.5-5.1); SODIUM 134 MMOL/L (136-145)
[2017-06-02 08:00] VITALS: BP 115/74
--- NOTE | 2017-06-02 08:03 | General Progress Note ---
Assessment/Plan Status: stable Assessment/Plan ASSESSMENT MSSA PNA Interstitial lung disease acute hypoxemic RF requiring VM severe protein calorie malnutrition diarrhea alcohol dependence depression PLAN OF CARE isolation Once cleared by ID, may be off the isolation current ID and pulmonary workup Subjective ROS Limited/Unobtainable: No Constitutional: Reports: malaise Cardiovascular: Reports: no symptoms Respiratory: Reports: shortness of breath Gastrointestinal/Abdominal: Reports: no symptoms Neurologic/Psychiatric: Reports: no symptoms Allergies: Coded Allergies: No Known Allergies (Unverified , 05/23/17) Objective Last 24 Hour Vital Signs Date Time Temp Pulse Resp B/P (MAP) Pulse Ox O2 Delivery O2 Flow Rate FiO2 06/02/17 04:00 99.0 90 18 130/45 95 06/02/17 00:00 99.1 62 20 129/76 98 06/01/17 20:08 98 Venturi Mask 14.0 55 06/01/17 20:08 90 18 Venturi Mask 14.0 55 06/01/17 20:08 Venturi Mask 14.0 55 06/01/17 20:00 99.3 99 21 129/82 97 06/01/17 16:15 97.4 70 21 131/80 97 06/01/17 12:15 98.3 81 21 113/69 99 06/01/17 08:15 97.7 81 21 108/66 96 Laboratory Tests 06/02/17 06:30: White Blood Count 5.5, Red Blood Count 3.17L, Hemoglobin 9.4L, Hematocrit 28.3L , Mean Corpuscular Volume 90, Mean Corpuscular Hemoglobin 29.8, Mean Corpuscular Hemoglobin Concent 33.3, Red Cell Distribution Width 12.6, Platelet Count 127L, Mean Platelet Volume 7.9, Neutrophils (%) (Auto) , Lymphocytes (%) ( Auto) , Monocytes (%) (Auto) , Eosinophils (%) (Auto) , Basophils (%) (Auto) , Neutrophils % (Manual) [Pending], Lymphocytes % (Manual) [Pending], Platelet Estimate [Pending], Platelet Morphology [Pending], Sodium Level 134L, Potassium Level 3.2L, Chloride Level 100, Carbon Dioxide Level 31, Anion Gap 3L, Blood Urea Nitrogen 18, Creatinine 0.7, Estimat Glomerular Filtration Rate > 60, Glucose Level 71L, Calcium Level 7.6L, Total Bilirubin 0.2, Aspartate Amino Transf (AST/SGOT) 74H, Alanine Aminotransferase (ALT/SGPT) 8L, Alkaline Phosphatase 179H, Total Protein 7.1, Albumin 0.7L, Globulin 6.4, Albumin/ Globulin Ratio 0.1L Height (Feet): 5 Height (Inches): 10.00 Weight (Pounds): 90 General Appearance: no apparent distress EENT: PERRL/EOMI Neck: supple Cardiovascular: normal rate Respiratory/Chest: rhonchi - bilaterally Abdomen: soft Extremities: non-tender 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
[2017-06-02] MEDS: Heparin 5000 units/ml inj SUBQ SCH ×2 (09:00→20:19)
--- NOTE | 2017-06-02 09:11 | Infectious Diseases Prog Note ---
Assessment/Plan Assessment/Plan ASSESSMENT: The patient is a 41-year-old male with Weight loss Fever , SP Pneumonia. . Sp Cx : MSSA RO fungal and atypical mycobacteria (TB is possible, less likely) AFBx 2 : Neg T Spot : neg Crytpo and blastomycosis: Neg histo : did not resulted due lab issues CT: Extensive interstitial and airspace parenchymal disease, and honeycomb appearance of much of the lower lobe and right middle lobe interstitial component, HIV negative Chronic diarrhea resolved, stool Cx : neg ? pancreatic insufficiency due to chronic alcohol abuse PLAN: Cont Ancef d# 7 / 10 05/30 SP Zithromax d$# 5 / 5 06/01 SP ( refusing) Flagyl d# 46 05/27 SP vancomycin, cefepime d# 5, Monitor CBC Monitor BMP. Stool for ova and parasite. Sputum for AFB x3 and mycobacterium TB PCR Serology (coccidio , reordered ) GI following for the patient's chronic diarrhea. monitor Xcray : P possilbe lung Bx and Bronch as per Pul RF, JOHANNA Subjective Allergies: Coded Allergies: No Known Allergies (Unverified , 05/23/17) Subjective one BM per day Objective Vital Signs Last 24 Hour Vital Signs Date Time Temp Pulse Resp B/P (MAP) Pulse Ox O2 Delivery O2 Flow Rate FiO2 06/02/17 04:00 99.0 90 18 130/45 95 06/02/17 00:00 99.1 62 20 129/76 98 06/01/17 20:08 98 Venturi Mask 14.0 55 06/01/17 20:08 90 18 Venturi Mask 14.0 55 06/01/17 20:08 Venturi Mask 14.0 55 06/01/17 20:00 99.3 99 21 129/82 97 06/01/17 16:15 97.4 70 21 131/80 97 06/01/17 12:15 98.3 81 21 113/69 99 Height (Feet): 5 Height (Inches): 10.00 Weight (Pounds): 90 HEENT: anicteric Respiratory/Chest: no respiratory distress Cardiovascular: regular rhythm Abdomen: soft, non tender Laboratory Tests Test 06/02/17 06:30 White Blood Count 5.5 K/UL (4.8-10.8) Red Blood Count 3.17 M/UL (4.70-6.10) L Hemoglobin 9.4 G/DL (14.2-18.0) L Hematocrit 28.3 % (42.0-52.0) L Mean Corpuscular Volume 90 FL (80-99) Mean Corpuscular Hemoglobin 29.8 PG (27.0-31.0) Mean Corpuscular Hemoglobin Concent 33.3 G/DL (32.0-36.0) Red Cell Distribution Width 12.6 % (11.6-14.8) Platelet Count 127 K/UL (150-450) L Mean Platelet Volume 7.9 FL (6.5-10.1) Neutrophils (%) (Auto) % (45.0-75.0) Lymphocytes (%) (Auto) % (20.0-45.0) Monocytes (%) (Auto) % (1.0-10.0) Eosinophils (%) (Auto) % (0.0-3.0) Basophils (%) (Auto) % (0.0-2.0) Neutrophils % (Manual) Pending Lymphocytes % (Manual) Pending Platelet Estimate Pending Platelet Morphology Pending Sodium Level 134 MMOL/L (136-145) L Potassium Level 3.2 MMOL/L (3.5-5.1) L Chloride Level 100 MMOL/L (98-107) Carbon Dioxide Level 31 MMOL/L (21-32) Anion Gap 3 mmol/L (5-15) L Blood Urea Nitrogen 18 mg/dL (7-18) Creatinine 0.7 MG/DL (0.55-1.30) Estimat Glomerular Filtration Rate > 60 mL/min (>60) Glucose Level 71 MG/DL (74-106) L Calcium Level 7.6 MG/DL (8.5-10.1) L Total Bilirubin 0.2 MG/DL (0.2-1.0) Aspartate Amino Transf (AST/SGOT) 74 U/L (15-37) H Alanine Aminotransferase (ALT/SGPT) 8 U/L (12-78) L Alkaline Phosphatase 179 U/L (46-116) H Total Protein 7.1 G/DL (6.4-8.2) Albumin 0.7 G/DL (3.4-5.0) L Globulin 6.4 g/dL Albumin/Globulin Ratio 0.1 (1.0-2.7) L Current Medications Medications (Trade) Dose Ordered Sig/Anna Route PRN Reason Start Time Stop Time Status Last Admin Dose Admin Acetaminophen (Tylenol) 650 mg Q4H PRN ORAL T>100.5 05/23/17 12:15 06/22/17 12:14 05/29/17 21:16 Cefazolin Sodium 50 ml @ 110 mls/hr Q8HR@0000,1000,1800 IV 06/01/17 18:00 06/05/17 17:59 06/01/17 23:42 Dextrose (Dextrose 50%) STAT PRN IV Hypoglycemia 05/23/17 12:15 06/22/17 12:14 Divalproex Sodium (Depakote ER) 1,000 mg EVERY 12 HOURS ORAL 05/29/17 09:00 06/28/17 08:59 Fluoxetine HCl (PROzac) 20 mg DAILY ORAL 05/27/17 09:00 06/26/17 08:59 Folic Acid (Folate) 1 mg DAILY ORAL 05/27/17 09:00 06/26/17 08:59 05/31/17 09:27 Heparin Sodium (Porcine) (Heparin 5000 units/ml) 5,000 units EVERY 12 HOURS SUBQ 05/23/17 21:00 06/22/17 20:59 06/01/17 21:38 Loperamide HCl (Imodium) 2 mg Q4H PRN ORAL Diarrhea 05/29/17 10:30 06/28/17 10:29 05/29/17 13:53 Multivitamins (Multivitamins) 1 tab DAILY ORAL 05/31/17 09:00 06/30/17 08:59 05/31/17 09:27 Ondansetron HCl (Zofran) 4 mg Q6H PRN IVP Nausea & Vomiting 05/23/17 12:15 06/22/17 12:14 Polyethylene Glycol (Miralax) 17 gm DAILYPRN PRN ORAL Constipation 05/23/17 12:15 06/22/17 12:14 Ranitidine HCl (Zantac) 150 mg BEDTIME ORAL 05/26/17 21:00 06/25/17 20:59 05/26/17 20:30 Thiamine HCl (Vitamin B1) 100 mg DAILY ORAL 05/31/17 09:00 06/30/17 08:59 AMARIS BRIGGS M.D. 19, 2017 09:11
[2017-06-02] MEDS: Depakote ER 500mg tab ORAL SCH ×3 (09:45→20:18)
[2017-06-02] MEDS: Thiamine 100mg tab ORAL SCH (09:45)
[2017-06-02] MEDS: ceFAZolin 2gm/50ml Premix 50 ML IV SCH ×2 (10:06→17:42)
[2017-06-02 12:00] VITALS: BP 117/72
--- NOTE | 2017-06-02 13:00 | GI Progress Note ---
Assessment/Plan Problems: (1) Generalized weakness ICD Codes: R53.1 - Weakness SNOMED: 36636388 (2) Anemia ICD Codes: D64.9 - Anemia, unspecified SNOMED: 549204847 (3) Severe protein-calorie malnutrition ICD Codes: E43 - Unspecified severe protein-calorie malnutrition SNOMED: 459965400 (4) Atypical pneumonia ICD Codes: J18.9 - Pneumonia, unspecified organism SNOMED: 688846933 (5) Protein calorie malnutrition ICD Codes: E46 - Unspecified protein-calorie malnutrition SNOMED: 862142133 Qualifiers: Qualified Codes: E44.0 - Moderate protein-calorie malnutrition (6) Diarrhea ICD Codes: R19.7 - Diarrhea, unspecified SNOMED: 94150582 Qualifiers: Qualified Codes: R19.7 - Diarrhea, unspecified Status: unchanged Status Narrative Discussed with Dr. Gamez. Assessment/Plan CT chest reviewed. cdiff negative iron levels unremarkable HIV negative airborne r/o TB KUB r/o chronic pancreatitis >> unremarkable OB stool r/o GI bleed >> negative Tissue Transglutaminase IgA r/o celiac >> negative fu stool cx monitor H&H, prn transfusions Imodium prn, Lomotil if diarrhea persists ppi folate PO H2B fu labs Subjective Subjective refuse PO meds diarrhea Objective Last 24 Hour Vital Signs Date Time Temp Pulse Resp B/P (MAP) Pulse Ox O2 Delivery O2 Flow Rate FiO2 06/02/17 08:00 97.0 82 22 115/74 97 06/02/17 04:00 99.0 90 18 130/45 95 06/02/17 00:00 99.1 62 20 129/76 98 06/01/17 20:08 98 Venturi Mask 14.0 55 06/01/17 20:08 90 18 Venturi Mask 14.0 55 06/01/17 20:08 Venturi Mask 14.0 55 06/01/17 20:00 99.3 99 21 129/82 97 06/01/17 16:15 97.4 70 21 131/80 97 Laboratory Tests Test 06/02/17 06:30 White Blood Count 5.5 K/UL (4.8-10.8) Red Blood Count 3.17 M/UL (4.70-6.10) L Hemoglobin 9.4 G/DL (14.2-18.0) L Hematocrit 28.3 % (42.0-52.0) L Mean Corpuscular Volume 90 FL (80-99) Mean Corpuscular Hemoglobin 29.8 PG (27.0-31.0) Mean Corpuscular Hemoglobin Concent 33.3 G/DL (32.0-36.0) Red Cell Distribution Width 12.6 % (11.6-14.8) Platelet Count 127 K/UL (150-450) L Mean Platelet Volume 7.9 FL (6.5-10.1) Neutrophils (%) (Auto) % (45.0-75.0) Lymphocytes (%) (Auto) % (20.0-45.0) Monocytes (%) (Auto) % (1.0-10.0) Eosinophils (%) (Auto) % (0.0-3.0) Basophils (%) (Auto) % (0.0-2.0) Differential Total Cells Counted 100 Neutrophils % (Manual) 91 % (45-75) H Lymphocytes % (Manual) 3 % (20-45) L Monocytes % (Manual) 3 % (1-10) Eosinophils % (Manual) 0 % (0-3) Basophils % (Manual) 0 % (0-2) Band Neutrophils 3 % (0-8) Platelet Estimate Adequate Platelet Morphology Normal Clumped Platelets 2+ Red Blood Cell Morphology Hypochromasia 1+ Sodium Level 134 MMOL/L (136-145) L Potassium Level 3.2 MMOL/L (3.5-5.1) L Chloride Level 100 MMOL/L (98-107) Carbon Dioxide Level 31 MMOL/L (21-32) Anion Gap 3 mmol/L (5-15) L Blood Urea Nitrogen 18 mg/dL (7-18) Creatinine 0.7 MG/DL (0.55-1.30) Estimat Glomerular Filtration Rate > 60 mL/min (>60) Glucose Level 71 MG/DL (74-106) L Calcium Level 7.6 MG/DL (8.5-10.1) L Total Bilirubin 0.2 MG/DL (0.2-1.0) Aspartate Amino Transf (AST/SGOT) 74 U/L (15-37) H Alanine Aminotransferase (ALT/SGPT) 8 U/L (12-78) L Alkaline Phosphatase 179 U/L (46-116) H Total Protein 7.1 G/DL (6.4-8.2) Albumin 0.7 G/DL (3.4-5.0) L Globulin 6.4 g/dL Albumin/Globulin Ratio 0.1 (1.0-2.7) L Height (Feet): 5 Height (Inches): 10.00 Weight (Pounds): 90 General Appearance: WD/WN, no apparent distress, alert Cardiovascular: normal rate Respiratory/Chest: normal breath sounds, no respiratory distress Abdominal Exam: normal bowel sounds, non tender, soft Extremities: normal range of motion, non-tender Alyssa Felix N.PDenise Jun 02, 2017 13:00
[2017-06-02] MEDS ORDERED: Albuterol/Ipratropium 3ml neb HHN PRN (15:00)
--- NOTE | 2017-06-02 15:02 | Pulmonology Progress Note ---
Assessment/Plan Problems: (1) Acute hypoxemic respiratory failure (2) Interstitial lung disease (3) Atypical pneumonia (4) Generalized weakness (5) Anemia (6) Protein calorie malnutrition (7) Diarrhea (8) Elevated rheumatoid factor Assessment/Plan -D/W ID, given patient has been afebrile, no WCt and infectious w/u unrevealing + elevated RF and appearance suggestive of a cellular interstitial process will start a trial of SOLUMEDROL 60 IV BID and TAPER -ABG re-ordered -Optimize pulmonary hygiene/mobilize as tolerated -Titrate down FiO2 to keep SaO2 > 90% -RTC and PRN HHN's -Abx per ID, F/U AFB # 3 -ILD w/u sent: inflammatory serologies ordered (ESR, CRP, JOHANNA, ANCA, CCP). So far only RF elevated but CCP pending. -BNP 3117, prior TTE with normal LVEF but global hypokinesis and poor study, repeat TTE ordered -Consider cardiology evaluation -Ideally should have bronch/FOB and at least BAL +/- Bx but not possible given current O2 needs -DVT Px: Hep SQ -Monitor volumes Subjective Allergies: Coded Allergies: No Known Allergies (Unverified , 05/23/17) Subjective AFVSS, remains on VM + cough + SOB, no F/C RF elevated, CCP pending, remainder of serologies pending Objective Last 24 Hour Vital Signs Date Time Temp Pulse Resp B/P (MAP) Pulse Ox O2 Delivery O2 Flow Rate FiO2 06/02/17 08:00 97.0 82 22 115/74 97 06/02/17 04:00 99.0 90 18 130/45 95 06/02/17 00:00 99.1 62 20 129/76 98 06/01/17 20:08 98 Venturi Mask 14.0 55 06/01/17 20:08 90 18 Venturi Mask 14.0 55 06/01/17 20:08 Venturi Mask 14.0 55 06/01/17 20:00 99.3 99 21 129/82 97 06/01/17 16:15 97.4 70 21 131/80 97 General Appearance: WD/WN, no acute distress HEENT: normocephalic, atraumatic, mucous membranes moist Respiratory/Chest: chest wall non-tender, lungs clear, normal breath sounds, no respiratory distress Cardiovascular: normal peripheral pulses, normal rate, regular rhythm Abdomen: normal bowel sounds, soft, non tender, no organomegaly, non distended Extremities: no cyanosis, no clubbing, no edema Laboratory Tests 06/02/17 06:30: White Blood Count 5.5, Red Blood Count 3.17L, Hemoglobin 9.4L, Hematocrit 28.3L , Mean Corpuscular Volume 90, Mean Corpuscular Hemoglobin 29.8, Mean Corpuscular Hemoglobin Concent 33.3, Red Cell Distribution Width 12.6, Platelet Count 127L, Mean Platelet Volume 7.9, Neutrophils (%) (Auto) , Lymphocytes (%) ( Auto) , Monocytes (%) (Auto) , Eosinophils (%) (Auto) , Basophils (%) (Auto) , Differential Total Cells Counted 100, Neutrophils % (Manual) 91H, Lymphocytes % (Manual) 3L, Monocytes % (Manual) 3, Eosinophils % (Manual) 0, Basophils % ( Manual) 0, Band Neutrophils 3, Platelet Estimate Adequate, Platelet Morphology Normal, Clumped Platelets 2+, Red Blood Cell Morphology , Hypochromasia 1+, Sodium Level 134L, Potassium Level 3.2L, Chloride Level 100, Carbon Dioxide Level 31, Anion Gap 3L, Blood Urea Nitrogen 18, Creatinine 0.7, Estimat Glomerular Filtration Rate > 60, Glucose Level 71L, Calcium Level 7.6L, Total Bilirubin 0.2, Aspartate Amino Transf (AST/SGOT) 74H, Alanine Aminotransferase ( ALT/SGPT) 8L, Alkaline Phosphatase 179H, Total Protein 7.1, Albumin 0.7L, Globulin 6.4, Albumin/Globulin Ratio 0.1L Current Medications Medications (Trade) Dose Ordered Sig/Anna Route PRN Reason Start Time Stop Time Status Last Admin Dose Admin Acetaminophen (Tylenol) 650 mg Q4H PRN ORAL T>100.5 05/23/17 12:15 06/22/17 12:14 05/29/17 21:16 Cefazolin Sodium 50 ml @ 110 mls/hr Q8HR@0000,1000,1800 IV 06/01/17 18:00 06/05/17 17:59 06/02/17 10:06 Dextrose (Dextrose 50%) STAT PRN IV Hypoglycemia 05/23/17 12:15 06/22/17 12:14 Divalproex Sodium (Depakote ER) 1,000 mg EVERY 12 HOURS ORAL 05/29/17 09:00 06/28/17 08:59 Fluoxetine HCl (PROzac) 20 mg DAILY ORAL 05/27/17 09:00 06/26/17 08:59 Folic Acid (Folate) 1 mg DAILY ORAL 05/27/17 09:00 06/26/17 08:59 06/02/17 09:46 Heparin Sodium (Porcine) (Heparin 5000 units/ml) 5,000 units EVERY 12 HOURS SUBQ 05/23/17 21:00 06/22/17 20:59 06/01/17 21:38 Loperamide HCl (Imodium) 2 mg Q4H PRN ORAL Diarrhea 05/29/17 10:30 06/28/17 10:29 05/29/17 13:53 Multivitamins (Multivitamins) 1 tab DAILY ORAL 05/31/17 09:00 06/30/17 08:59 06/02/17 09:46 Ondansetron HCl (Zofran) 4 mg Q6H PRN IVP Nausea & Vomiting 05/23/17 12:15 06/22/17 12:14 Polyethylene Glycol (Miralax) 17 gm DAILYPRN PRN ORAL Constipation 05/23/17 12:15 06/22/17 12:14 Ranitidine HCl (Zantac) 150 mg BEDTIME ORAL 05/26/17 21:00 06/25/17 20:59 05/26/17 20:30 Thiamine HCl (Vitamin B1) 100 mg DAILY ORAL 05/31/17 09:00 06/30/17 08:59 06/02/17 09:45 ALONA DAWKINS M.D. Jun 02, 2017 15:02
[2017-06-02 16:00] VITALS: BP 124/79
[2017-06-02] MEDS ORDERED: Zolpidem 5mg tab ORAL PRN (19:15)
[2017-06-02 20:00] VITALS: BP 132/86
[2017-06-02] MEDS: Solu-MEDROL 125mg Inj IVP SCH (20:13)
[2017-06-02] MEDS: Albuterol/Ipratropium 3ml neb HHN SCH (21:14)
--- NOTE | 2017-06-02 23:16 | General Progress Note ---
Assessment/Plan Assessment/Plan med noncompliance agitation abusive and hostile Subjective Date patient seen: Jun 02, 2017 Allergies: Coded Allergies: No Known Allergies (Unverified , 05/23/17) Objective Last 24 Hour Vital Signs Date Time Temp Pulse Resp B/P (MAP) Pulse Ox O2 Delivery O2 Flow Rate FiO2 06/02/17 21:17 95 20 95 Non-Rebreather 15.0 80 06/02/17 20:00 98.2 91 19 132/86 95 Venturi Mask 06/02/17 19:23 36 06/02/17 19:23 73 20 95 Non-Rebreather 15.0 80 06/02/17 19:00 94 Venturi Mask 15.0 80 06/02/17 19:00 93 18 Non-Rebreather 15.0 80 06/02/17 19:00 Non-Rebreather 15.0 80 06/02/17 16:00 98.2 78 20 124/79 99 06/02/17 12:00 97.2 69 20 117/72 98 06/02/17 08:00 97.0 82 22 115/74 97 06/02/17 04:00 99.0 90 18 130/45 95 06/02/17 00:00 99.1 62 20 129/76 98 Intake and Output 06/02/17 06/03/17 19:00 07:00 Intake Total 800 ml 240 ml Balance 800 ml 240 ml Intake Oral 800 ml 240 ml # Voids 3 Laboratory Tests 06/02/17 06:30: White Blood Count 5.5, Red Blood Count 3.17L, Hemoglobin 9.4L, Hematocrit 28.3L , Mean Corpuscular Volume 90, Mean Corpuscular Hemoglobin 29.8, Mean Corpuscular Hemoglobin Concent 33.3, Red Cell Distribution Width 12.6, Platelet Count 127L, Mean Platelet Volume 7.9, Neutrophils (%) (Auto) , Lymphocytes (%) ( Auto) , Monocytes (%) (Auto) , Eosinophils (%) (Auto) , Basophils (%) (Auto) , Differential Total Cells Counted 100, Neutrophils % (Manual) 91H, Lymphocytes % (Manual) 3L, Monocytes % (Manual) 3, Eosinophils % (Manual) 0, Basophils % ( Manual) 0, Band Neutrophils 3, Platelet Estimate Adequate, Platelet Morphology Normal, Clumped Platelets 2+, Red Blood Cell Morphology , Hypochromasia 1+, Sodium Level 134L, Potassium Level 3.2L, Chloride Level 100, Carbon Dioxide Level 31, Anion Gap 3L, Blood Urea Nitrogen 18, Creatinine 0.7, Estimat Glomerular Filtration Rate > 60, Glucose Level 71L, Calcium Level 7.6L, Total Bilirubin 0.2, Aspartate Amino Transf (AST/SGOT) 74H, Alanine Aminotransferase ( ALT/SGPT) 8L, Alkaline Phosphatase 179H, Total Protein 7.1, Albumin 0.7L, Globulin 6.4, Albumin/Globulin Ratio 0.1L 06/02/17 15:15: Arterial Blood pH 7.574*H, Arterial Blood Partial Pressure CO2 33.2L, Arterial Blood Partial Pressure O2 104.1H, Arterial Blood HCO3 30.0H, Arterial Blood Oxygen Saturation 97.7, Arterial Blood Base Excess 7.8, Michael Test Positive Height (Feet): 5 Height (Inches): 10.00 Weight (Pounds): 90 Amanda Mina M.D. Jun 02, 2017 23:16
--- NOTE | 2017-06-02 23:32 | Cardiology Progress Note ---
Assessment/Plan Assessment/Plan The patient is seen and examined, full consult note will be dictated. Objective Last 24 Hour Vital Signs Date Time Temp Pulse Resp B/P (MAP) Pulse Ox O2 Delivery O2 Flow Rate FiO2 06/02/17 21:17 95 20 95 Non-Rebreather 15.0 80 06/02/17 20:00 98.2 91 19 132/86 95 Venturi Mask 06/02/17 19:23 36 06/02/17 19:23 73 20 95 Non-Rebreather 15.0 80 06/02/17 19:00 94 Venturi Mask 15.0 80 06/02/17 19:00 93 18 Non-Rebreather 15.0 80 06/02/17 19:00 Non-Rebreather 15.0 80 06/02/17 16:00 98.2 78 20 124/79 99 06/02/17 12:00 97.2 69 20 117/72 98 06/02/17 08:00 97.0 82 22 115/74 97 06/02/17 04:00 99.0 90 18 130/45 95 06/02/17 00:00 99.1 62 20 129/76 98 Intake and Output 06/02/17 06/03/17 19:00 07:00 Intake Total 800 ml 240 ml Balance 800 ml 240 ml Intake Oral 800 ml 240 ml # Voids 3 Laboratory Tests Test 06/02/17 06:30 06/02/17 15:15 White Blood Count 5.5 K/UL (4.8-10.8) Red Blood Count 3.17 M/UL (4.70-6.10) L Hemoglobin 9.4 G/DL (14.2-18.0) L Hematocrit 28.3 % (42.0-52.0) L Mean Corpuscular Volume 90 FL (80-99) Mean Corpuscular Hemoglobin 29.8 PG (27.0-31.0) Mean Corpuscular Hemoglobin Concent 33.3 G/DL (32.0-36.0) Red Cell Distribution Width 12.6 % (11.6-14.8) Platelet Count 127 K/UL (150-450) L Mean Platelet Volume 7.9 FL (6.5-10.1) Neutrophils (%) (Auto) % (45.0-75.0) Lymphocytes (%) (Auto) % (20.0-45.0) Monocytes (%) (Auto) % (1.0-10.0) Eosinophils (%) (Auto) % (0.0-3.0) Basophils (%) (Auto) % (0.0-2.0) Differential Total Cells Counted 100 Neutrophils % (Manual) 91 % (45-75) H Lymphocytes % (Manual) 3 % (20-45) L Monocytes % (Manual) 3 % (1-10) Eosinophils % (Manual) 0 % (0-3) Basophils % (Manual) 0 % (0-2) Band Neutrophils 3 % (0-8) Platelet Estimate Adequate Platelet Morphology Normal Clumped Platelets 2+ Red Blood Cell Morphology Hypochromasia 1+ Sodium Level 134 MMOL/L (136-145) L Potassium Level 3.2 MMOL/L (3.5-5.1) L Chloride Level 100 MMOL/L (98-107) Carbon Dioxide Level 31 MMOL/L (21-32) Anion Gap 3 mmol/L (5-15) L Blood Urea Nitrogen 18 mg/dL (7-18) Creatinine 0.7 MG/DL (0.55-1.30) Estimat Glomerular Filtration Rate > 60 mL/min (>60) Glucose Level 71 MG/DL (74-106) L Calcium Level 7.6 MG/DL (8.5-10.1) L Total Bilirubin 0.2 MG/DL (0.2-1.0) Aspartate Amino Transf (AST/SGOT) 74 U/L (15-37) H Alanine Aminotransferase (ALT/SGPT) 8 U/L (12-78) L Alkaline Phosphatase 179 U/L (46-116) H Total Protein 7.1 G/DL (6.4-8.2) Albumin 0.7 G/DL (3.4-5.0) L Globulin 6.4 g/dL Albumin/Globulin Ratio 0.1 (1.0-2.7) L Arterial Blood pH 7.574 (7.350-7.450) Arterial Blood Partial Pressure CO2 33.2 mmHg (35.0-45.0) L Arterial Blood Partial Pressure O2 104.1 mmHg (75.0-100.0) H Arterial Blood HCO3 30.0 mmol/L (22.0-26.0) H Arterial Blood Oxygen Saturation 97.7 % (92.0-98.0) Arterial Blood Base Excess 7.8 Michael Test Positive VIET SCHROEDER Jun 02, 2017 23:32
[2017-06-03] VITALS: BP 136/88
[2017-06-03] MEDS: ceFAZolin 2gm/50ml Premix 50 ML IV SCH ×4 (00:16→22:06)
[2017-06-03] MEDS: Albuterol/Ipratropium 3ml neb HHN SCH ×3 (01:00→19:55)
[2017-06-03 04:00] VITALS: BP 129/82
[2017-06-03 07:01] LABS: HEMATOCRIT 34.7 % (42.0-52.0); HEMOGLOBIN 11.4 G/DL (14.2-18.0); MEAN CORPUSCULAR VOLUME 91 FL (80-99); PLATELET COUNT 249 K/UL (150-450); RED BLOOD COUNT 3.81 M/UL (4.70-6.10); WHITE BLOOD COUNT 2.9 K/UL (4.8-10.8)
[2017-06-03 07:24] LABS: ALANINE AMINOTRANSFERASE 7 U/L (12-78); ALBUMIN 0.8 G/DL (3.4-5.0); ALBUMIN/GLOBULIN RATIO 0.1 (1.0-2.7); ALKALINE PHOSPHATASE 247 U/L (46-116); ANION GAP 1 mmol/L (5-15); ASPARTATE AMINO TRANSFERASE 88 U/L (15-37); BILIRUBIN,TOTAL 0.2 MG/DL (0.2-1.0); BLOOD UREA NITROGEN 22 mg/dL (7-18); CALCIUM 8.2 MG/DL (8.5-10.1); CARBON DIOXIDE 33 MMOL/L (21-32); CHLORIDE 98 MMOL/L (98-107); CREATININE 0.8 MG/DL (0.55-1.30); POTASSIUM 4.3 MMOL/L (3.5-5.1); SODIUM 132 MMOL/L (136-145)
[2017-06-03 08:34] VITALS: BP 145/64
[2017-06-03] MEDS: Depakote ER 500mg tab ORAL SCH ×2 (09:00→22:07)
--- NOTE | 2017-06-03 09:26 | General Progress Note ---
Assessment/Plan Status: stable Assessment/Plan ASSESSMENT MSSA PNA Interstitial lung disease acute hypoxemic RF requiring VM severe protein calorie malnutrition diarrhea alcohol dependence depression PLAN OF CARE isolation Once cleared by ID, may be off the isolation current ID and pulmonary workup Subjective Constitutional: Reports: no symptoms HEENT: Reports: no symptoms Respiratory: Reports: shortness of breath Allergies: Coded Allergies: No Known Allergies (Unverified , 05/23/17) Objective Last 24 Hour Vital Signs Date Time Temp Pulse Resp B/P (MAP) Pulse Ox O2 Delivery O2 Flow Rate FiO2 06/03/17 08:34 98.6 67 20 145/64 98 06/03/17 04:00 99.3 68 20 129/82 98 06/03/17 01:15 Non-Rebreather 15.0 80 06/03/17 01:15 Non-Rebreather 15.0 80 06/03/17 00:00 98.0 87 21 136/88 96 Venturi Mask 06/02/17 21:17 95 20 95 Non-Rebreather 15.0 80 06/02/17 20:00 98.2 91 19 132/86 95 Venturi Mask 06/02/17 19:23 36 06/02/17 19:23 73 20 95 Non-Rebreather 15.0 80 06/02/17 19:00 94 Venturi Mask 15.0 80 06/02/17 19:00 93 18 Non-Rebreather 15.0 80 06/02/17 19:00 Non-Rebreather 15.0 80 06/02/17 16:00 98.2 78 20 124/79 99 06/02/17 12:00 97.2 69 20 117/72 98 Laboratory Tests 06/02/17 15:15: Arterial Blood pH 7.574*H, Arterial Blood Partial Pressure CO2 33.2L, Arterial Blood Partial Pressure O2 104.1H, Arterial Blood HCO3 30.0H, Arterial Blood Oxygen Saturation 97.7, Arterial Blood Base Excess 7.8, Michael Test Positive 06/03/17 05:40: White Blood Count 2.9L, Red Blood Count 3.81L, Hemoglobin 11.4L, Hematocrit 34.7L, Mean Corpuscular Volume 91, Mean Corpuscular Hemoglobin 29.8, Mean Corpuscular Hemoglobin Concent 32.7, Red Cell Distribution Width 13.0, Platelet Count 249#, Mean Platelet Volume 8.4, Neutrophils (%) (Auto) , Lymphocytes (%) ( Auto) , Monocytes (%) (Auto) , Eosinophils (%) (Auto) , Basophils (%) (Auto) , Differential Total Cells Counted 100, Neutrophils % (Manual) 86H, Lymphocytes % (Manual) 7L, Monocytes % (Manual) 4, Eosinophils % (Manual) 0, Basophils % ( Manual) 0, Band Neutrophils 3, Platelet Estimate Adequate, Platelet Morphology Normal, Hypochromasia 1+, Sodium Level 132L, Potassium Level 4.3, Chloride Level 98, Carbon Dioxide Level 33H, Anion Gap 1L, Blood Urea Nitrogen 22H, Creatinine 0.8, Estimat Glomerular Filtration Rate > 60, Glucose Level 131H, Calcium Level 8.2L, Total Bilirubin 0.2, Aspartate Amino Transf (AST/SGOT) 88H, Alanine Aminotransferase (ALT/SGPT) 7L, Alkaline Phosphatase 247H, Total Protein 8.5H, Albumin 0.8L, Globulin 7.7, Albumin/Globulin Ratio 0.1L, Coccidioides Antibody (Comp Fix) [Pending] Height (Feet): 5 Height (Inches): 10.00 Weight (Pounds): 90 General Appearance: WD/WN EENT: PERRL/EOMI Neck: supple Cardiovascular: normal rate Respiratory/Chest: rhonchi - bilaterally Abdomen: soft Extremities: non-tender Neurologic: professional advisor II-XII 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 Darrian Londono MD Jun 03, 2017 09:26
--- NOTE | 2017-06-03 09:54 | Infectious Diseases Prog Note ---
Assessment/Plan Assessment/Plan ASSESSMENT: The patient is a 41-year-old male with Weight loss Fever , SP Pneumonia. . Sp Cx : MSSA RO fungal and atypical mycobacteria (TB is possible, less likely) AFBx 2 : Neg T Spot : neg Crytpo and blastomycosis: Neg histo : did not resulted due lab issues CT: Extensive interstitial and airspace parenchymal disease, and honeycomb appearance of much of the lower lobe and right middle lobe interstitial component, HIV negative Chronic diarrhea resolved, stool Cx : neg ? pancreatic insufficiency due to chronic alcohol abuse Elevated ESR , CRP and RF PLAN: Cont Ancef d# 8 / 10 05/30 SP Zithromax d$# 5 / 5 06/01 SP ( refusing) Flagyl d# 46 05/27 SP vancomycin, cefepime d# 5, Monitor CBC Monitor BMP. Stool for ova and parasite. Sputum for AFB x3 and mycobacterium TB PCR Serology (coccidio , reordered ) GI following for the patient's chronic diarrhea. monitor Xcray : P possilbe lung Bx and Bronch as per Pul JOHANNA Subjective Constitutional: Denies: no symptoms, fever, chills, fatigue, anorexia, drenching sweats, other Allergies: Coded Allergies: No Known Allergies (Unverified , 05/23/17) Subjective afebrile Objective Vital Signs Last 24 Hour Vital Signs Date Time Temp Pulse Resp B/P (MAP) Pulse Ox O2 Delivery O2 Flow Rate FiO2 06/03/17 08:34 98.6 67 20 145/64 98 06/03/17 04:00 99.3 68 20 129/82 98 06/03/17 01:15 Non-Rebreather 15.0 80 06/03/17 01:15 Non-Rebreather 15.0 80 06/03/17 00:00 98.0 87 21 136/88 96 Venturi Mask 06/02/17 21:17 95 20 95 Non-Rebreather 15.0 80 06/02/17 20:00 98.2 91 19 132/86 95 Venturi Mask 06/02/17 19:23 36 06/02/17 19:23 73 20 95 Non-Rebreather 15.0 80 06/02/17 19:00 94 Venturi Mask 15.0 80 06/02/17 19:00 93 18 Non-Rebreather 15.0 80 06/02/17 19:00 Non-Rebreather 15.0 80 06/02/17 16:00 98.2 78 20 124/79 99 06/02/17 12:00 97.2 69 20 117/72 98 Height (Feet): 5 Height (Inches): 10.00 Weight (Pounds): 90 Respiratory/Chest: no respiratory distress Cardiovascular: regularly irregular Abdomen: non distended Laboratory Tests Test 06/02/17 15:15 06/03/17 05:40 Arterial Blood pH 7.574 (7.350-7.450) Arterial Blood Partial Pressure CO2 33.2 mmHg (35.0-45.0) L Arterial Blood Partial Pressure O2 104.1 mmHg (75.0-100.0) H Arterial Blood HCO3 30.0 mmol/L (22.0-26.0) H Arterial Blood Oxygen Saturation 97.7 % (92.0-98.0) Arterial Blood Base Excess 7.8 Michael Test Positive White Blood Count 2.9 K/UL (4.8-10.8) L Red Blood Count 3.81 M/UL (4.70-6.10) L Hemoglobin 11.4 G/DL (14.2-18.0) L Hematocrit 34.7 % (42.0-52.0) L Mean Corpuscular Volume 91 FL (80-99) Mean Corpuscular Hemoglobin 29.8 PG (27.0-31.0) Mean Corpuscular Hemoglobin Concent 32.7 G/DL (32.0-36.0) Red Cell Distribution Width 13.0 % (11.6-14.8) Platelet Count 249 K/UL (150-450) # Mean Platelet Volume 8.4 FL (6.5-10.1) Neutrophils (%) (Auto) % (45.0-75.0) Lymphocytes (%) (Auto) % (20.0-45.0) Monocytes (%) (Auto) % (1.0-10.0) Eosinophils (%) (Auto) % (0.0-3.0) Basophils (%) (Auto) % (0.0-2.0) Differential Total Cells Counted 100 Neutrophils % (Manual) 86 % (45-75) H Lymphocytes % (Manual) 7 % (20-45) L Monocytes % (Manual) 4 % (1-10) Eosinophils % (Manual) 0 % (0-3) Basophils % (Manual) 0 % (0-2) Band Neutrophils 3 % (0-8) Platelet Estimate Adequate Platelet Morphology Normal Hypochromasia 1+ Sodium Level 132 MMOL/L (136-145) L Potassium Level 4.3 MMOL/L (3.5-5.1) Chloride Level 98 MMOL/L (98-107) Carbon Dioxide Level 33 MMOL/L (21-32) H Anion Gap 1 mmol/L (5-15) L Blood Urea Nitrogen 22 mg/dL (7-18) H Creatinine 0.8 MG/DL (0.55-1.30) Estimat Glomerular Filtration Rate > 60 mL/min (>60) Glucose Level 131 MG/DL (74-106) H Calcium Level 8.2 MG/DL (8.5-10.1) L Total Bilirubin 0.2 MG/DL (0.2-1.0) Aspartate Amino Transf (AST/SGOT) 88 U/L (15-37) H Alanine Aminotransferase (ALT/SGPT) 7 U/L (12-78) L Alkaline Phosphatase 247 U/L (46-116) H Total Protein 8.5 G/DL (6.4-8.2) H Albumin 0.8 G/DL (3.4-5.0) L Globulin 7.7 g/dL Albumin/Globulin Ratio 0.1 (1.0-2.7) L Coccidioides Antibody (Comp Fix) Pending Current Medications Medications (Trade) Dose Ordered Sig/Anna Route PRN Reason Start Time Stop Time Status Last Admin Dose Admin Acetaminophen (Tylenol) 650 mg Q4H PRN ORAL T>100.5 05/23/17 12:15 06/22/17 12:14 05/29/17 21:16 Albuterol/ Ipratropium (Albuterol/ Ipratropium) 3 ml Q4H PRN HHN Shortness of Breath 06/02/17 15:00 06/07/17 14:59 Albuterol/ Ipratropium (Albuterol/ Ipratropium) 3 ml Q6HRT HHN 06/02/17 19:00 06/07/17 18:59 06/02/17 21:14 Cefazolin Sodium 50 ml @ 110 mls/hr Q8HR@0000,1000,1800 IV 06/01/17 18:00 06/05/17 17:59 06/03/17 00:16 Dextrose (Dextrose 50%) STAT PRN IV Hypoglycemia 05/23/17 12:15 06/22/17 12:14 Divalproex Sodium (Depakote ER) 1,000 mg EVERY 12 HOURS ORAL 05/29/17 09:00 06/28/17 08:59 Fluoxetine HCl (PROzac) 20 mg DAILY ORAL 05/27/17 09:00 06/26/17 08:59 Folic Acid (Folate) 1 mg DAILY ORAL 05/27/17 09:00 06/26/17 08:59 06/02/17 09:46 Heparin Sodium (Porcine) (Heparin 5000 units/ml) 5,000 units EVERY 12 HOURS SUBQ 05/23/17 21:00 06/22/17 20:59 06/01/17 21:38 Loperamide HCl (Imodium) 2 mg Q4H PRN ORAL Diarrhea 05/29/17 10:30 06/28/17 10:29 05/29/17 13:53 Methylprednisolone Sodium Succinate (Solu-MEDROL) 60 mg EVERY 12 HOURS IVP 06/02/17 21:00 07/02/17 20:59 06/02/17 20:13 Multivitamins (Multivitamins) 1 tab DAILY ORAL 05/31/17 09:00 06/30/17 08:59 06/02/17 09:46 Ondansetron HCl (Zofran) 4 mg Q6H PRN IVP Nausea & Vomiting 05/23/17 12:15 06/22/17 12:14 Polyethylene Glycol (Miralax) 17 gm DAILYPRN PRN ORAL Constipation 05/23/17 12:15 06/22/17 12:14 Ranitidine HCl (Zantac) 150 mg BEDTIME ORAL 05/26/17 21:00 06/25/17 20:59 05/26/17 20:30 Thiamine HCl (Vitamin B1) 100 mg DAILY ORAL 05/31/17 09:00 06/30/17 08:59 06/02/17 09:45 Zolpidem Tartrate (Ambien) 5 mg HSPRN PRN ORAL Insomnia 06/02/17 19:15 06/09/17 19:14 AMARIS BRIGGS M.D. Jun 03, 2017 09:54
[2017-06-03] MEDS: Thiamine 100mg tab ORAL SCH (10:09)
[2017-06-03] MEDS: Heparin 5000 units/ml inj SUBQ SCH ×2 (10:09→22:08)
[2017-06-03] MEDS: Solu-MEDROL 125mg Inj IVP SCH ×2 (10:10→22:06)
[2017-06-03 11:34] VITALS: BP 125/86
--- NOTE | 2017-06-03 11:34 | GI Progress Note ---
Assessment/Plan Problems: (1) Generalized weakness ICD Codes: R53.1 - Weakness SNOMED: 26682459 (2) Anemia ICD Codes: D64.9 - Anemia, unspecified SNOMED: 849997468 (3) Severe protein-calorie malnutrition ICD Codes: E43 - Unspecified severe protein-calorie malnutrition SNOMED: 744270289 (4) Atypical pneumonia ICD Codes: J18.9 - Pneumonia, unspecified organism SNOMED: 650719977 (5) Protein calorie malnutrition ICD Codes: E46 - Unspecified protein-calorie malnutrition SNOMED: 673736494 Qualifiers: Qualified Codes: E44.0 - Moderate protein-calorie malnutrition (6) Diarrhea ICD Codes: R19.7 - Diarrhea, unspecified SNOMED: 21765916 Qualifiers: Qualified Codes: R19.7 - Diarrhea, unspecified Status: unchanged Status Narrative Discussed with Dr. Gamez. Assessment/Plan CT chest reviewed. cdiff negative iron levels unremarkable HIV negative airborne r/o TB KUB r/o chronic pancreatitis >> unremarkable OB stool r/o GI bleed >> negative Tissue Transglutaminase IgA r/o celiac >> negative fu pulmonary recs monitor H&H, prn transfusions Imodium prn, Lomotil if diarrhea persists ppi folate PO H2B fu labs Subjective Subjective refuse PO meds diarrhea Objective Last 24 Hour Vital Signs Date Time Temp Pulse Resp B/P (MAP) Pulse Ox O2 Delivery O2 Flow Rate FiO2 06/03/17 08:34 98.6 67 20 145/64 98 06/03/17 06:50 Non-Rebreather 15.0 100 06/03/17 06:50 75 18 Non-Rebreather 15.0 100 06/03/17 06:50 98 Non-Rebreather 15.0 100 06/03/17 04:00 99.3 68 20 129/82 98 06/03/17 01:15 Non-Rebreather 15.0 80 06/03/17 01:15 Non-Rebreather 15.0 80 06/03/17 00:00 98.0 87 21 136/88 96 Venturi Mask 06/02/17 21:17 95 20 95 Non-Rebreather 15.0 80 06/02/17 20:00 98.2 91 19 132/86 95 Venturi Mask 06/02/17 19:23 36 06/02/17 19:23 73 20 95 Non-Rebreather 15.0 80 06/02/17 19:00 94 Venturi Mask 15.0 80 06/02/17 19:00 93 18 Non-Rebreather 15.0 80 06/02/17 19:00 Non-Rebreather 15.0 80 06/02/17 16:00 98.2 78 20 124/79 99 06/02/17 12:00 97.2 69 20 117/72 98 Intake and Output 06/02/17 06/03/17 19:00 07:00 Intake Total 800 ml 1310 ml Output Total 1750 ml Balance 800 ml -440 ml Intake Oral 800 ml 1200 ml IV Total 110 ml Output Urine Total 1750 ml # Voids 3 Laboratory Tests Test 06/02/17 15:15 06/03/17 05:40 Arterial Blood pH 7.574 (7.350-7.450) Arterial Blood Partial Pressure CO2 33.2 mmHg (35.0-45.0) L Arterial Blood Partial Pressure O2 104.1 mmHg (75.0-100.0) H Arterial Blood HCO3 30.0 mmol/L (22.0-26.0) H Arterial Blood Oxygen Saturation 97.7 % (92.0-98.0) Arterial Blood Base Excess 7.8 Michael Test Positive White Blood Count 2.9 K/UL (4.8-10.8) L Red Blood Count 3.81 M/UL (4.70-6.10) L Hemoglobin 11.4 G/DL (14.2-18.0) L Hematocrit 34.7 % (42.0-52.0) L Mean Corpuscular Volume 91 FL (80-99) Mean Corpuscular Hemoglobin 29.8 PG (27.0-31.0) Mean Corpuscular Hemoglobin Concent 32.7 G/DL (32.0-36.0) Red Cell Distribution Width 13.0 % (11.6-14.8) Platelet Count 249 K/UL (150-450) # Mean Platelet Volume 8.4 FL (6.5-10.1) Neutrophils (%) (Auto) % (45.0-75.0) Lymphocytes (%) (Auto) % (20.0-45.0) Monocytes (%) (Auto) % (1.0-10.0) Eosinophils (%) (Auto) % (0.0-3.0) Basophils (%) (Auto) % (0.0-2.0) Differential Total Cells Counted 100 Neutrophils % (Manual) 86 % (45-75) H Lymphocytes % (Manual) 7 % (20-45) L Monocytes % (Manual) 4 % (1-10) Eosinophils % (Manual) 0 % (0-3) Basophils % (Manual) 0 % (0-2) Band Neutrophils 3 % (0-8) Platelet Estimate Adequate Platelet Morphology Normal Hypochromasia 1+ Sodium Level 132 MMOL/L (136-145) L Potassium Level 4.3 MMOL/L (3.5-5.1) Chloride Level 98 MMOL/L (98-107) Carbon Dioxide Level 33 MMOL/L (21-32) H Anion Gap 1 mmol/L (5-15) L Blood Urea Nitrogen 22 mg/dL (7-18) H Creatinine 0.8 MG/DL (0.55-1.30) Estimat Glomerular Filtration Rate > 60 mL/min (>60) Glucose Level 131 MG/DL (74-106) H Calcium Level 8.2 MG/DL (8.5-10.1) L Total Bilirubin 0.2 MG/DL (0.2-1.0) Aspartate Amino Transf (AST/SGOT) 88 U/L (15-37) H Alanine Aminotransferase (ALT/SGPT) 7 U/L (12-78) L Alkaline Phosphatase 247 U/L (46-116) H Total Protein 8.5 G/DL (6.4-8.2) H Albumin 0.8 G/DL (3.4-5.0) L Globulin 7.7 g/dL Albumin/Globulin Ratio 0.1 (1.0-2.7) L Coccidioides Antibody (Comp Fix) Pending Height (Feet): 5 Height (Inches): 10.00 Weight (Pounds): 90 General Appearance: WD/WN, no apparent distress, alert Cardiovascular: normal rate Respiratory/Chest: no respiratory distress, other - no rebreather Abdominal Exam: normal bowel sounds, non tender, soft Extremities: normal range of motion, non-tender Alyssa Felix N.PDenise Jun 03, 2017 11:34
--- NOTE | 2017-06-03 12:40 | Pulmonology Progress Note ---
Assessment/Plan Problems: (1) Acute hypoxemic respiratory failure (2) Interstitial lung disease (3) Atypical pneumonia (4) Generalized weakness (5) Anemia (6) Protein calorie malnutrition (7) Diarrhea (8) Elevated rheumatoid factor Assessment/Plan -D/W ID, given patient has been afebrile, no WCt and infectious w/u unrevealing + elevated RF and appearance suggestive of a cellular interstitial process will continuet trial of SOLUMEDROL 60 IV BID and TAPER -Check HRCT chest with PRONE and SUPINE images -Optimize pulmonary hygiene/mobilize as tolerated -Titrate down FiO2 to keep SaO2 > 90% --> attempt to transition to regular NC -RTC and PRN HHN's -Abx per ID, F/U AFB # 3 (still pending) -ILD w/u sent: inflammatory serologies ordered (ESR, CRP, JOHANNA, ANCA, CCP). So far only RF elevated but CCP pending. -BNP 3117, prior TTE with normal LVEF but global hypokinesis and poor study, repeat TTE pending, cards consult pending -Ideally should have bronch/FOB and at least BAL +/- Bx but not possible given current O2 needs --> based on HRCT I may ask CTS to do a VATS lung Bx -DVT Px: Hep SQ -Monitor volumes Subjective Allergies: Coded Allergies: No Known Allergies (Unverified , 05/23/17) Subjective AFVSS, remains on VM + cough, less SOB, no F/C RF elevated, CCP pending, remainder of serologies pending Seen by cards, consult note pending Objective Last 24 Hour Vital Signs Date Time Temp Pulse Resp B/P (MAP) Pulse Ox O2 Delivery O2 Flow Rate FiO2 06/03/17 11:34 98.4 81 20 125/86 97 06/03/17 08:34 98.6 67 20 145/64 98 06/03/17 06:50 Non-Rebreather 15.0 100 06/03/17 06:50 75 18 Non-Rebreather 15.0 100 06/03/17 06:50 98 Non-Rebreather 15.0 100 06/03/17 04:00 99.3 68 20 129/82 98 06/03/17 01:15 Non-Rebreather 15.0 80 06/03/17 01:15 Non-Rebreather 15.0 80 06/03/17 00:00 98.0 87 21 136/88 96 Venturi Mask 06/02/17 21:17 95 20 95 Non-Rebreather 15.0 80 06/02/17 20:00 98.2 91 19 132/86 95 Venturi Mask 06/02/17 19:23 36 06/02/17 19:23 73 20 95 Non-Rebreather 15.0 80 06/02/17 19:00 94 Venturi Mask 15.0 80 06/02/17 19:00 93 18 Non-Rebreather 15.0 80 06/02/17 19:00 Non-Rebreather 15.0 80 06/02/17 16:00 98.2 78 20 124/79 99 Intake and Output 06/02/17 06/03/17 19:00 07:00 Intake Total 800 ml 1310 ml Output Total 1750 ml Balance 800 ml -440 ml Intake Oral 800 ml 1200 ml IV Total 110 ml Output Urine Total 1750 ml # Voids 3 General Appearance: WD/WN, no acute distress HEENT: normocephalic, atraumatic, mucous membranes moist Respiratory/Chest: crackles/rales - scattered bilateral Cardiovascular: normal peripheral pulses, normal rate, regular rhythm Abdomen: normal bowel sounds, soft, non tender, no organomegaly, non distended Extremities: no cyanosis, no clubbing, no edema Laboratory Tests 06/02/17 15:15: Arterial Blood pH 7.574*H, Arterial Blood Partial Pressure CO2 33.2L, Arterial Blood Partial Pressure O2 104.1H, Arterial Blood HCO3 30.0H, Arterial Blood Oxygen Saturation 97.7, Arterial Blood Base Excess 7.8, Michael Test Positive 06/03/17 05:40: White Blood Count 2.9L, Red Blood Count 3.81L, Hemoglobin 11.4L, Hematocrit 34.7L, Mean Corpuscular Volume 91, Mean Corpuscular Hemoglobin 29.8, Mean Corpuscular Hemoglobin Concent 32.7, Red Cell Distribution Width 13.0, Platelet Count 249#, Mean Platelet Volume 8.4, Neutrophils (%) (Auto) , Lymphocytes (%) ( Auto) , Monocytes (%) (Auto) , Eosinophils (%) (Auto) , Basophils (%) (Auto) , Differential Total Cells Counted 100, Neutrophils % (Manual) 86H, Lymphocytes % (Manual) 7L, Monocytes % (Manual) 4, Eosinophils % (Manual) 0, Basophils % ( Manual) 0, Band Neutrophils 3, Platelet Estimate Adequate, Platelet Morphology Normal, Hypochromasia 1+, Sodium Level 132L, Potassium Level 4.3, Chloride Level 98, Carbon Dioxide Level 33H, Anion Gap 1L, Blood Urea Nitrogen 22H, Creatinine 0.8, Estimat Glomerular Filtration Rate > 60, Glucose Level 131H, Calcium Level 8.2L, Total Bilirubin 0.2, Aspartate Amino Transf (AST/SGOT) 88H, Alanine Aminotransferase (ALT/SGPT) 7L, Alkaline Phosphatase 247H, Total Protein 8.5H, Albumin 0.8L, Globulin 7.7, Albumin/Globulin Ratio 0.1L, Coccidioides Antibody (Comp Fix) [Pending] Current Medications Medications (Trade) Dose Ordered Sig/Anna Route PRN Reason Start Time Stop Time Status Last Admin Dose Admin Acetaminophen (Tylenol) 650 mg Q4H PRN ORAL T>100.5 05/23/17 12:15 06/22/17 12:14 05/29/17 21:16 Albuterol/ Ipratropium (Albuterol/ Ipratropium) 3 ml Q4H PRN HHN Shortness of Breath 06/02/17 15:00 06/07/17 14:59 Albuterol/ Ipratropium (Albuterol/ Ipratropium) 3 ml Q6HRT HHN 06/02/17 19:00 06/07/17 18:59 06/02/17 21:14 Cefazolin Sodium 50 ml @ 110 mls/hr Q8HR@0000,1000,1800 IV 06/01/17 18:00 06/05/17 17:59 06/03/17 10:10 Dextrose (Dextrose 50%) STAT PRN IV Hypoglycemia 05/23/17 12:15 06/22/17 12:14 Divalproex Sodium (Depakote ER) 1,000 mg EVERY 12 HOURS ORAL 05/29/17 09:00 06/28/17 08:59 Fluoxetine HCl (PROzac) 20 mg DAILY ORAL 05/27/17 09:00 06/26/17 08:59 Folic Acid (Folate) 1 mg DAILY ORAL 05/27/17 09:00 06/26/17 08:59 06/03/17 10:09 Heparin Sodium (Porcine) (Heparin 5000 units/ml) 5,000 units EVERY 12 HOURS SUBQ 05/23/17 21:00 06/22/17 20:59 06/03/17 10:09 Loperamide HCl (Imodium) 2 mg Q4H PRN ORAL Diarrhea 05/29/17 10:30 06/28/17 10:29 05/29/17 13:53 Methylprednisolone Sodium Succinate (Solu-MEDROL) 60 mg EVERY 12 HOURS IVP 06/02/17 21:00 07/02/17 20:59 06/03/17 10:10 Multivitamins (Multivitamins) 1 tab DAILY ORAL 05/31/17 09:00 06/30/17 08:59 06/03/17 10:09 Ondansetron HCl (Zofran) 4 mg Q6H PRN IVP Nausea & Vomiting 05/23/17 12:15 06/22/17 12:14 Polyethylene Glycol (Miralax) 17 gm DAILYPRN PRN ORAL Constipation 05/23/17 12:15 06/22/17 12:14 Ranitidine HCl (Zantac) 150 mg BEDTIME ORAL 05/26/17 21:00 06/25/17 20:59 05/26/17 20:30 Thiamine HCl (Vitamin B1) 100 mg DAILY ORAL 05/31/17 09:00 06/30/17 08:59 06/03/17 10:09 Zolpidem Tartrate (Ambien) 5 mg HSPRN PRN ORAL Insomnia 06/02/17 19:15 06/09/17 19:14 ALONA DAWKINS M.D. Jun 03, 2017 12:40
[2017-06-03] MEDS ORDERED: NS 500ML ONE (15:01)
--- NOTE | 2017-06-03 15:16 | Diagnostic Imaging Report ---
Indications: Altered mental status, anxiety, depression Technique: Spiral acquisitions obtained through the brain. Angled axial and coronal 5 x 5 mm slices were reconstructed. Total dose length product 1422.05 mGycm. CTDI vol(s) 70.38 mGy. Dose reduction achieved using automated exposure control Comparison: None. Findings: There is prominence of the ventricles and extra-axial CSF spaces which is out of proportion to patient's age. No acute intracranial hemorrhage or edema. No mass effect or midline shift. Normal cao-white differentiation. There is sphenoid sinus disease. Intact calvarium. Mastoids are clear. The visualized portions of the orbits are unremarkable. Impression: Mild cerebral volume loss, out of proportion to patient's age Negative for acute intracranial bleed or mass effect The CT scanner at [facility] is accredited by the [employer] and the scans are performed using protocols designed to limit radiation exposure to as low as reasonably achievable to attain images of sufficient resolution adequate for diagnostic evaluation.
[2017-06-03 16:04] VITALS: BP 120/81
--- NOTE | 2017-06-03 16:05 | Diagnostic Imaging Report ---
Clinical Indication: Shortness of breath, acute hypoxemic respiratory failure, interstitial lung disease, atypical pneumonia Technique: Spiral acquisition obtained through the chest. No IV contrast utilized, per high resolution protocol. Axial 5 x 5 mm slices were reconstructed. Axial 1 mm thick slices were reconstructed using high resolution algorithm at 10 mm intervals. Multiplanar reconstructions generated. Total dose length product 637.21 mGycm. CTDIvol(s) 15.63 mGy. Dose reduction achieved using automated exposure control Note that request was made for supine as well as prone imaging. Patient was unable to tolerate prone imaging single that portion of the exam could not be performed Comparison: none Findings: Extensive groundglass opacity is seen throughout essentially entirety of both lungs. There is also considerable dense consolidation in the bilateral lower lobes, slightly more so on the right than on the left. The high-resolution images demonstrate, in addition to the groundglass opacities, what appears to be a background of considerable honeycombing. This is more extensive on the right, but nonetheless quite extensive on the left as well. There is also irregular interstitial septal thickening. No significant bronchiectasis is demonstrated. No effusions. The heart size is normal. There is considerable edema of the mediastinal, epicardial, and subcutaneous fat. No mediastinal or hilar mass or adenopathy. No axillary or chest wall mass or adenopathy. The included upper abdominal anatomy is grossly unremarkable. Impression: Generalized edema of the subcutaneous and mediastinal fat Diffuse pulmonary parenchymal groundglass opacity. This is a nonspecific finding, but given the finding of soft tissue edema, could represent pulmonary edema Diffuse and extensive interstitial changes, as described. Given that much of the interstitium is obscured by the airspace opacity, this is somewhat difficult to characterize. However, the high resolution images are appear to demonstrate at least to some extent honeycombing, which is consistent with chronic interstitial fibrosis. There is also suggestion of diffuse interstitial septal thickening. This has a broad differential, which includes pulmonary edema, lymphocytic interstitial pneumonia, nonspecific interstitial pneumonia, among many other entities The CT scanner at [facility] is accredited by the [employer] and the scans are performed using protocols designed to limit radiation exposure to as low as reasonably achievable to attain images of sufficient resolution adequate for diagnostic evaluation.
[2017-06-03 20:00] VITALS: BP 114/69
--- NOTE | 2017-06-03 22:27 | General Progress Note ---
Progress Note Progress Note ADDENDUM HRCT reviewed, diffuse GGO's in the setting of edema + elevated BNP + elevated JVP + global hypokinesis on 05/23 TTE + patient in positive fluid balance. Although there is likely underlying ILD I suspect a significant component of pulmonary edema. For now I will start Lasix 40 mg IV BID and assess response. Will repeat TTE, hopefully will be of a better quality this time. For now ill continue IV steroids and Abx per ID. If no clinical improvement next 1-2 days will need a VATS lung biopsy. Unfortunately, current O2 needs preclude a FOB and TBBx would be of limited utility. ALNOA DAWKINS M.D. Jun 03, 2017 22:27
[2017-06-04] MEDS: Albuterol/Ipratropium 3ml neb HHN SCH ×4 (02:09→19:53)
[2017-06-04 03:48] VITALS: BP 118/77
[2017-06-04 07:22] LABS: HEMATOCRIT 29.8 % (42.0-52.0); HEMOGLOBIN 9.8 G/DL (14.2-18.0); MEAN CORPUSCULAR VOLUME 91 FL (80-99); PLATELET COUNT 201 K/UL (150-450); RED BLOOD COUNT 3.27 M/UL (4.70-6.10); WHITE BLOOD COUNT 3.4 K/UL (4.8-10.8)
[2017-06-04 07:45] LABS: ALANINE AMINOTRANSFERASE 15 U/L (12-78); ALBUMIN 0.8 G/DL (3.4-5.0); ALBUMIN/GLOBULIN RATIO 0.1 (1.0-2.7); ALKALINE PHOSPHATASE 212 U/L (46-116); ANION GAP 6 mmol/L (5-15); ASPARTATE AMINO TRANSFERASE 75 U/L (15-37); BILIRUBIN,TOTAL 0.2 MG/DL (0.2-1.0); BLOOD UREA NITROGEN 21 mg/dL (7-18); CALCIUM 7.7 MG/DL (8.5-10.1); CARBON DIOXIDE 28 MMOL/L (21-32); CHLORIDE 99 MMOL/L (98-107); CREATININE 0.6 MG/DL (0.55-1.30); POTASSIUM 4.6 MMOL/L (3.5-5.1); SODIUM 133 MMOL/L (136-145)
[2017-06-04 08:00] VITALS: BP 115/68
[2017-06-04] MEDS: Thiamine 100mg tab ORAL SCH (09:00)
[2017-06-04] MEDS: Depakote ER 500mg tab ORAL SCH ×2 (09:00→21:00)
[2017-06-04] MEDS: Solu-MEDROL 125mg Inj IVP SCH ×2 (10:05→21:18)
[2017-06-04] MEDS: Heparin 5000 units/ml inj SUBQ SCH ×2 (10:07→21:19)
[2017-06-04] MEDS: ceFAZolin 2gm/50ml Premix 50 ML IV SCH ×3 (10:08→21:17)
--- NOTE | 2017-06-04 11:47 | GI Progress Note ---
Assessment/Plan Problems: (1) Generalized weakness ICD Codes: R53.1 - Weakness SNOMED: 52432966 (2) Anemia ICD Codes: D64.9 - Anemia, unspecified SNOMED: 502392668 (3) Severe protein-calorie malnutrition ICD Codes: E43 - Unspecified severe protein-calorie malnutrition SNOMED: 682235440 (4) Atypical pneumonia ICD Codes: J18.9 - Pneumonia, unspecified organism SNOMED: 886288106 (5) Protein calorie malnutrition ICD Codes: E46 - Unspecified protein-calorie malnutrition SNOMED: 387802242 Qualifiers: Qualified Codes: E44.0 - Moderate protein-calorie malnutrition (6) Diarrhea ICD Codes: R19.7 - Diarrhea, unspecified SNOMED: 11137035 Qualifiers: Qualified Codes: R19.7 - Diarrhea, unspecified Status: not improved, unchanged Status Narrative Discussed with Dr. Gamez. Assessment/Plan CT chest reviewed. cdiff negative iron levels unremarkable HIV negative airborne r/o TB KUB r/o chronic pancreatitis >> unremarkable OB stool r/o GI bleed >> negative Tissue Transglutaminase IgA r/o celiac >> negative fu pulmonary recs monitor H&H, prn transfusions Imodium prn, Lomotil if diarrhea persists ppi folate PO H2B fu labs Subjective Subjective refuse PO meds diarrhea Objective Last 24 Hour Vital Signs Date Time Temp Pulse Resp B/P (MAP) Pulse Ox O2 Delivery O2 Flow Rate FiO2 06/04/17 08:14 83 18 99 Non-Rebreather 15.0 100 06/04/17 08:08 Non-Rebreather 15.0 100 06/04/17 08:08 95 Non-Rebreather 15.0 100 06/04/17 08:05 75 18 98 Non-Rebreather 15.0 100 06/04/17 08:00 97.3 100 20 115/68 97 06/04/17 04:00 Simple Mask 06/04/17 03:48 97.5 64 20 118/77 99 Simple Mask 06/04/17 02:17 79 18 98 Non-Rebreather 15.0 100 06/04/17 02:07 71 18 98 Non-Rebreather 15.0 100 06/04/17 00:00 Non-Rebreather 06/03/17 20:02 81 20 97 Non-Rebreather 15.0 100 06/03/17 20:00 97.6 82 18 114/69 95 06/03/17 20:00 Non-Rebreather 06/03/17 19:54 80 18 94 Non-Rebreather 15.0 100 06/03/17 19:54 94 Non-Rebreather 15.0 100 06/03/17 19:54 Non-Rebreather 15.0 100 06/03/17 16:04 97.3 80 20 120/81 93 06/03/17 13:00 Non-Rebreather 06/03/17 13:00 Non-Rebreather Intake and Output 06/03/17 06/04/17 19:00 07:00 Intake Total 800 ml 50 ml Output Total 700 ml Balance 100 ml 50 ml Intake Oral 800 ml IV Total 50 ml Output Urine Total 700 ml # Voids 5 Laboratory Tests Test 06/04/17 04:30 White Blood Count 3.4 K/UL (4.8-10.8) L Red Blood Count 3.27 M/UL (4.70-6.10) L Hemoglobin 9.8 G/DL (14.2-18.0) L Hematocrit 29.8 % (42.0-52.0) L Mean Corpuscular Volume 91 FL (80-99) Mean Corpuscular Hemoglobin 29.8 PG (27.0-31.0) Mean Corpuscular Hemoglobin Concent 32.7 G/DL (32.0-36.0) Red Cell Distribution Width 13.0 % (11.6-14.8) Platelet Count 201 K/UL (150-450) Mean Platelet Volume 7.3 FL (6.5-10.1) Neutrophils (%) (Auto) % (45.0-75.0) Lymphocytes (%) (Auto) % (20.0-45.0) Monocytes (%) (Auto) % (1.0-10.0) Eosinophils (%) (Auto) % (0.0-3.0) Basophils (%) (Auto) % (0.0-2.0) Differential Total Cells Counted 100 Neutrophils % (Manual) 91 % (45-75) H Lymphocytes % (Manual) 9 % (20-45) L Monocytes % (Manual) 0 % (1-10) L Eosinophils % (Manual) 0 % (0-3) Basophils % (Manual) 0 % (0-2) Band Neutrophils 0 % (0-8) Platelet Estimate Adequate Platelet Morphology Normal Hypochromasia 1+ Sodium Level 133 MMOL/L (136-145) L Potassium Level 4.6 MMOL/L (3.5-5.1) Chloride Level 99 MMOL/L (98-107) Carbon Dioxide Level 28 MMOL/L (21-32) Anion Gap 6 mmol/L (5-15) Blood Urea Nitrogen 21 mg/dL (7-18) H Creatinine 0.6 MG/DL (0.55-1.30) Estimat Glomerular Filtration Rate > 60 mL/min (>60) Glucose Level 104 MG/DL (74-106) Calcium Level 7.7 MG/DL (8.5-10.1) L Total Bilirubin 0.2 MG/DL (0.2-1.0) Aspartate Amino Transf (AST/SGOT) 75 U/L (15-37) H Alanine Aminotransferase (ALT/SGPT) 15 U/L (12-78) Alkaline Phosphatase 212 U/L (46-116) H Total Protein 7.0 G/DL (6.4-8.2) Albumin 0.8 G/DL (3.4-5.0) L Globulin 6.2 g/dL Albumin/Globulin Ratio 0.1 (1.0-2.7) L Height (Feet): 5 Height (Inches): 10.00 Weight (Pounds): 90 General Appearance: no apparent distress, morbidly obese, other Cardiovascular: normal rate Respiratory/Chest: other - no rebreather Abdominal Exam: normal bowel sounds, non tender, soft Extremities: normal range of motion, non-tender Alyssa Felix N.P. Jun 04, 2017 11:47
[2017-06-04 12:00] VITALS: BP 117/77
--- NOTE | 2017-06-04 12:10 | Pulmonology Progress Note ---
Assessment/Plan Problems: (1) Acute hypoxemic respiratory failure (2) Interstitial lung disease (3) Atypical pneumonia (4) Generalized weakness (5) Anemia (6) Protein calorie malnutrition (7) Diarrhea (8) Elevated rheumatoid factor Assessment/Plan HRCT reviewed, diffuse GGO's in the setting of edema + elevated BNP + elevated JVP + global hypokinesis on 05/23 TTE + patient in positive fluid balance. Although there is likely underlying ILD I suspect a significant component of pulmonary edema. For now I will start Lasix 40 mg IV BID and assess response. Will repeat TTE, hopefully will be of a better quality this time. For now ill continue IV steroids and Abx per ID. If no clinical improvement next 1-2 days will need a VATS lung biopsy. Unfortunately, current O2 needs preclude a FOB and TBBx would be of limited utility. -Continue SOLUMEDROL 60 IV BID and TAPER -Continue Lasix 40 mg IV BID -Optimize pulmonary hygiene/mobilize as tolerated -Titrate down FiO2 to keep SaO2 > 90% --> attempt to transition to regular NC -RTC and PRN HHN's -Abx per ID, F/U AFB # 3 (still pending) -F/U remaining serologiese -F/U cardiology recs -Ideally should have bronch/FOB and at least BAL +/- Bx but not possible given current O2 needs --> based on response to steroids and diuretics I may ask CTS to do a VATS lung Bx -DVT Px: Hep SQ -Monitor volumes Subjective Allergies: Coded Allergies: No Known Allergies (Unverified , 05/23/17) Subjective AFVSS, remains on 100% NRBFM, sats close to 100% but per RN he refused to come off less cough, less SOB, no F/C Has not really been OOB much I started lasix last night Objective Last 24 Hour Vital Signs Date Time Temp Pulse Resp B/P (MAP) Pulse Ox O2 Delivery O2 Flow Rate FiO2 06/04/17 08:14 83 18 99 Non-Rebreather 15.0 100 06/04/17 08:08 Non-Rebreather 15.0 100 06/04/17 08:08 95 Non-Rebreather 15.0 100 06/04/17 08:05 75 18 98 Non-Rebreather 15.0 100 06/04/17 08:00 97.3 100 20 115/68 97 06/04/17 04:00 Simple Mask 06/04/17 03:48 97.5 64 20 118/77 99 Simple Mask 06/04/17 02:17 79 18 98 Non-Rebreather 15.0 100 06/04/17 02:07 71 18 98 Non-Rebreather 15.0 100 06/04/17 00:00 Non-Rebreather 06/03/17 20:02 81 20 97 Non-Rebreather 15.0 100 06/03/17 20:00 97.6 82 18 114/69 95 06/03/17 20:00 Non-Rebreather 06/03/17 19:54 80 18 94 Non-Rebreather 15.0 100 06/03/17 19:54 94 Non-Rebreather 15.0 100 06/03/17 19:54 Non-Rebreather 15.0 100 06/03/17 16:04 97.3 80 20 120/81 93 06/03/17 13:00 Non-Rebreather 06/03/17 13:00 Non-Rebreather Intake and Output 06/03/17 06/04/17 19:00 07:00 Intake Total 800 ml 50 ml Output Total 700 ml Balance 100 ml 50 ml Intake Oral 800 ml IV Total 50 ml Output Urine Total 700 ml # Voids 5 General Appearance: no acute distress, cachetic HEENT: normocephalic, atraumatic, mucous membranes moist Respiratory/Chest: rhonchi - scattered Cardiovascular: normal peripheral pulses, normal rate, regularly irregular Abdomen: normal bowel sounds, soft, non tender, no organomegaly, non distended Extremities: no cyanosis, no clubbing, no edema Laboratory Tests 06/04/17 04:30: White Blood Count 3.4L, Red Blood Count 3.27L, Hemoglobin 9.8L, Hematocrit 29.8L , Mean Corpuscular Volume 91, Mean Corpuscular Hemoglobin 29.8, Mean Corpuscular Hemoglobin Concent 32.7, Red Cell Distribution Width 13.0, Platelet Count 201, Mean Platelet Volume 7.3, Neutrophils (%) (Auto) , Lymphocytes (%) ( Auto) , Monocytes (%) (Auto) , Eosinophils (%) (Auto) , Basophils (%) (Auto) , Differential Total Cells Counted 100, Neutrophils % (Manual) 91H, Lymphocytes % (Manual) 9L, Monocytes % (Manual) 0L, Eosinophils % (Manual) 0, Basophils % ( Manual) 0, Band Neutrophils 0, Platelet Estimate Adequate, Platelet Morphology Normal, Hypochromasia 1+, Sodium Level 133L, Potassium Level 4.6, Chloride Level 99, Carbon Dioxide Level 28, Anion Gap 6, Blood Urea Nitrogen 21H, Creatinine 0.6, Estimat Glomerular Filtration Rate > 60, Glucose Level 104, Calcium Level 7.7L, Total Bilirubin 0.2, Aspartate Amino Transf (AST/SGOT) 75H, Alanine Aminotransferase (ALT/SGPT) 15, Alkaline Phosphatase 212H, Total Protein 7.0, Albumin 0.8L, Globulin 6.2, Albumin/Globulin Ratio 0.1L Current Medications Medications (Trade) Dose Ordered Sig/Anna Route PRN Reason Start Time Stop Time Status Last Admin Dose Admin Acetaminophen (Tylenol) 650 mg Q4H PRN ORAL T>100.5 05/23/17 12:15 06/22/17 12:14 05/29/17 21:16 Albuterol/ Ipratropium (Albuterol/ Ipratropium) 3 ml Q4H PRN HHN Shortness of Breath 06/02/17 15:00 06/07/17 14:59 Albuterol/ Ipratropium (Albuterol/ Ipratropium) 3 ml Q6HRT HHN 06/02/17 19:00 06/07/17 18:59 06/04/17 08:04 Cefazolin Sodium 50 ml @ 110 mls/hr Q8HR@0000,1000,1800 IV 06/01/17 18:00 06/05/17 17:59 06/04/17 10:08 Dextrose (Dextrose 50%) STAT PRN IV Hypoglycemia 05/23/17 12:15 06/22/17 12:14 Divalproex Sodium (Depakote ER) 1,000 mg EVERY 12 HOURS ORAL 05/29/17 09:00 06/28/17 08:59 06/03/17 22:07 Fluoxetine HCl (PROzac) 20 mg DAILY ORAL 05/27/17 09:00 06/26/17 08:59 Folic Acid (Folate) 1 mg DAILY ORAL 05/27/17 09:00 06/26/17 08:59 06/04/17 10:08 Furosemide (Lasix) 40 mg EVERY 12 HOURS IV 06/04/17 09:00 07/04/17 08:59 06/04/17 10:05 Heparin Sodium (Porcine) (Heparin 5000 units/ml) 5,000 units EVERY 12 HOURS SUBQ 05/23/17 21:00 06/22/17 20:59 06/04/17 10:07 Loperamide HCl (Imodium) 2 mg Q4H PRN ORAL Diarrhea 05/29/17 10:30 06/28/17 10:29 05/29/17 13:53 Methylprednisolone Sodium Succinate (Solu-MEDROL) 60 mg EVERY 12 HOURS IVP 06/02/17 21:00 07/02/17 20:59 06/04/17 10:05 Multivitamins (Multivitamins) 1 tab DAILY ORAL 05/31/17 09:00 06/30/17 08:59 06/04/17 10:08 Ondansetron HCl (Zofran) 4 mg Q6H PRN IVP Nausea & Vomiting 05/23/17 12:15 06/22/17 12:14 Polyethylene Glycol (Miralax) 17 gm DAILYPRN PRN ORAL Constipation 05/23/17 12:15 06/22/17 12:14 Ranitidine HCl (Zantac) 150 mg BEDTIME ORAL 05/26/17 21:00 06/25/17 20:59 06/03/17 22:06 Thiamine HCl (Vitamin B1) 100 mg DAILY ORAL 05/31/17 09:00 06/30/17 08:59 06/03/17 10:09 Zolpidem Tartrate (Ambien) 5 mg HSPRN PRN ORAL Insomnia 06/02/17 19:15 06/09/17 19:14 ALONA DAWKINS M.D. Jun 04, 2017 12:10
--- NOTE | 2017-06-04 12:37 | General Progress Note ---
Assessment/Plan Status: stable Assessment/Plan ASSESSMENT MSSA PNA Interstitial lung disease acute hypoxemic RF requiring VM severe protein calorie malnutrition diarrhea alcohol dependence depression PLAN OF CARE isolation Once cleared by ID, may be off the isolation current ID and pulmonary workup Subjective Constitutional: Reports: no symptoms HEENT: Reports: no symptoms Cardiovascular: Reports: no symptoms Respiratory: Reports: shortness of breath Allergies: Coded Allergies: No Known Allergies (Unverified , 05/23/17) Objective Last 24 Hour Vital Signs Date Time Temp Pulse Resp B/P (MAP) Pulse Ox O2 Delivery O2 Flow Rate FiO2 06/04/17 08:14 83 18 99 Non-Rebreather 15.0 100 06/04/17 08:08 Non-Rebreather 15.0 100 06/04/17 08:08 95 Non-Rebreather 15.0 100 06/04/17 08:05 75 18 98 Non-Rebreather 15.0 100 06/04/17 08:00 97.3 100 20 115/68 97 06/04/17 04:00 Simple Mask 06/04/17 03:48 97.5 64 20 118/77 99 Simple Mask 06/04/17 02:17 79 18 98 Non-Rebreather 15.0 100 06/04/17 02:07 71 18 98 Non-Rebreather 15.0 100 06/04/17 00:00 Non-Rebreather 06/03/17 20:02 81 20 97 Non-Rebreather 15.0 100 06/03/17 20:00 97.6 82 18 114/69 95 06/03/17 20:00 Non-Rebreather 06/03/17 19:54 80 18 94 Non-Rebreather 15.0 100 06/03/17 19:54 94 Non-Rebreather 15.0 100 06/03/17 19:54 Non-Rebreather 15.0 100 06/03/17 16:04 97.3 80 20 120/81 93 06/03/17 13:00 Non-Rebreather 06/03/17 13:00 Non-Rebreather Intake and Output 06/03/17 06/04/17 19:00 07:00 Intake Total 800 ml 50 ml Output Total 700 ml Balance 100 ml 50 ml Intake Oral 800 ml IV Total 50 ml Output Urine Total 700 ml # Voids 5 Laboratory Tests 06/04/17 04:30: White Blood Count 3.4L, Red Blood Count 3.27L, Hemoglobin 9.8L, Hematocrit 29.8L , Mean Corpuscular Volume 91, Mean Corpuscular Hemoglobin 29.8, Mean Corpuscular Hemoglobin Concent 32.7, Red Cell Distribution Width 13.0, Platelet Count 201, Mean Platelet Volume 7.3, Neutrophils (%) (Auto) , Lymphocytes (%) ( Auto) , Monocytes (%) (Auto) , Eosinophils (%) (Auto) , Basophils (%) (Auto) , Differential Total Cells Counted 100, Neutrophils % (Manual) 91H, Lymphocytes % (Manual) 9L, Monocytes % (Manual) 0L, Eosinophils % (Manual) 0, Basophils % ( Manual) 0, Band Neutrophils 0, Platelet Estimate Adequate, Platelet Morphology Normal, Hypochromasia 1+, Sodium Level 133L, Potassium Level 4.6, Chloride Level 99, Carbon Dioxide Level 28, Anion Gap 6, Blood Urea Nitrogen 21H, Creatinine 0.6, Estimat Glomerular Filtration Rate > 60, Glucose Level 104, Calcium Level 7.7L, Total Bilirubin 0.2, Aspartate Amino Transf (AST/SGOT) 75H, Alanine Aminotransferase (ALT/SGPT) 15, Alkaline Phosphatase 212H, Total Protein 7.0, Albumin 0.8L, Globulin 6.2, Albumin/Globulin Ratio 0.1L Height (Feet): 5 Height (Inches): 10.00 Weight (Pounds): 90 General Appearance: no apparent distress EENT: PERRL/EOMI Neck: supple Cardiovascular: normal rate Respiratory/Chest: rhonchi - bilaterally Abdomen: soft Extremities: non-tender Neurologic: pet ambassador II-XII 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 Darrian Londono MD Jun 04, 2017 12:37
[2017-06-04 16:00] VITALS: BP 124/76
[2017-06-04] MEDS ORDERED: Tubing IV Secondary IV ONE ×2 (16:42)
[2017-06-04] MEDS ORDERED: NS 500ML ONE (16:42)
--- NOTE | 2017-06-04 19:47 | Infectious Diseases Prog Note ---
Assessment/Plan Assessment/Plan ASSESSMENT: The patient is a 41-year-old male with Weight loss Fever , SP Pneumonia. . Sp Cx : MSSA RO fungal and atypical mycobacteria (TB is possible, less likely) AFBx 2 : Neg T Spot : neg Crytpo and blastomycosis: JOHANNA Neg histo : did not resulted due lab issues CT: Extensive interstitial and airspace parenchymal disease, and honeycomb appearance of much of the lower lobe and right middle lobe interstitial component, HIV negative Chronic diarrhea resolved, stool Cx : neg ? pancreatic insufficiency due to chronic alcohol abuse Elevated ESR , CRP and RF PLAN: Cont Ancef d# 9 / 10 05/30 SP Zithromax d$# 5 / 5 06/01 SP ( refusing) Flagyl d# 46 05/27 SP vancomycin, cefepime d# 5, Monitor CBC Monitor BMP. Stool for ova and parasite. Sputum for AFB x3 and mycobacterium TB PCR Serology (coccidio , reordered ) GI following for the patient's chronic diarrhea. monitor Xcray : P possilbe lung Bx and Bronch as per Pul Subjective Constitutional: Denies: no symptoms, fever, chills, fatigue, anorexia, drenching sweats, other Allergies: Coded Allergies: No Known Allergies (Unverified , 05/23/17) Subjective afebrile Objective Vital Signs Last 24 Hour Vital Signs Date Time Temp Pulse Resp B/P (MAP) Pulse Ox O2 Delivery O2 Flow Rate FiO2 06/04/17 16:00 97.3 76 20 124/76 100 06/04/17 14:12 88 18 99 Non-Rebreather 15.0 100 06/04/17 14:04 71 18 99 Non-Rebreather 15.0 100 06/04/17 12:00 97.5 66 20 117/77 100 06/04/17 08:14 83 18 99 Non-Rebreather 15.0 100 06/04/17 08:08 Non-Rebreather 15.0 100 06/04/17 08:08 95 Non-Rebreather 15.0 100 06/04/17 08:05 75 18 98 Non-Rebreather 15.0 100 06/04/17 08:00 97.3 100 20 115/68 97 06/04/17 04:00 Simple Mask 06/04/17 03:48 97.5 64 20 118/77 99 Simple Mask 06/04/17 02:17 79 18 98 Non-Rebreather 15.0 100 06/04/17 02:07 71 18 98 Non-Rebreather 15.0 100 06/04/17 00:00 Non-Rebreather 06/03/17 20:02 81 20 97 Non-Rebreather 15.0 100 06/03/17 20:00 97.6 82 18 114/69 95 06/03/17 20:00 Non-Rebreather 06/03/17 19:54 80 18 94 Non-Rebreather 15.0 100 06/03/17 19:54 94 Non-Rebreather 15.0 100 06/03/17 19:54 Non-Rebreather 15.0 100 Height (Feet): 5 Height (Inches): 10.00 Weight (Pounds): 90 HEENT: anicteric Respiratory/Chest: normal breath sounds Cardiovascular: regular rhythm Abdomen: no organomegaly Laboratory Tests Test 06/04/17 04:30 White Blood Count 3.4 K/UL (4.8-10.8) L Red Blood Count 3.27 M/UL (4.70-6.10) L Hemoglobin 9.8 G/DL (14.2-18.0) L Hematocrit 29.8 % (42.0-52.0) L Mean Corpuscular Volume 91 FL (80-99) Mean Corpuscular Hemoglobin 29.8 PG (27.0-31.0) Mean Corpuscular Hemoglobin Concent 32.7 G/DL (32.0-36.0) Red Cell Distribution Width 13.0 % (11.6-14.8) Platelet Count 201 K/UL (150-450) Mean Platelet Volume 7.3 FL (6.5-10.1) Neutrophils (%) (Auto) % (45.0-75.0) Lymphocytes (%) (Auto) % (20.0-45.0) Monocytes (%) (Auto) % (1.0-10.0) Eosinophils (%) (Auto) % (0.0-3.0) Basophils (%) (Auto) % (0.0-2.0) Differential Total Cells Counted 100 Neutrophils % (Manual) 91 % (45-75) H Lymphocytes % (Manual) 9 % (20-45) L Monocytes % (Manual) 0 % (1-10) L Eosinophils % (Manual) 0 % (0-3) Basophils % (Manual) 0 % (0-2) Band Neutrophils 0 % (0-8) Platelet Estimate Adequate Platelet Morphology Normal Hypochromasia 1+ Sodium Level 133 MMOL/L (136-145) L Potassium Level 4.6 MMOL/L (3.5-5.1) Chloride Level 99 MMOL/L (98-107) Carbon Dioxide Level 28 MMOL/L (21-32) Anion Gap 6 mmol/L (5-15) Blood Urea Nitrogen 21 mg/dL (7-18) H Creatinine 0.6 MG/DL (0.55-1.30) Estimat Glomerular Filtration Rate > 60 mL/min (>60) Glucose Level 104 MG/DL (74-106) Calcium Level 7.7 MG/DL (8.5-10.1) L Total Bilirubin 0.2 MG/DL (0.2-1.0) Aspartate Amino Transf (AST/SGOT) 75 U/L (15-37) H Alanine Aminotransferase (ALT/SGPT) 15 U/L (12-78) Alkaline Phosphatase 212 U/L (46-116) H Total Protein 7.0 G/DL (6.4-8.2) Albumin 0.8 G/DL (3.4-5.0) L Globulin 6.2 g/dL Albumin/Globulin Ratio 0.1 (1.0-2.7) L Current Medications Medications (Trade) Dose Ordered Sig/Anna Route PRN Reason Start Time Stop Time Status Last Admin Dose Admin Acetaminophen (Tylenol) 650 mg Q4H PRN ORAL T>100.5 05/23/17 12:15 06/22/17 12:14 05/29/17 21:16 Albuterol/ Ipratropium (Albuterol/ Ipratropium) 3 ml Q4H PRN HHN Shortness of Breath 06/02/17 15:00 06/07/17 14:59 Albuterol/ Ipratropium (Albuterol/ Ipratropium) 3 ml Q6HRT HHN 06/02/17 19:00 06/07/17 18:59 06/04/17 14:06 Cefazolin Sodium 50 ml @ 110 mls/hr Q8HR@0000,1000,1800 IV 06/01/17 18:00 06/05/17 17:59 06/04/17 17:58 Dextrose (Dextrose 50%) STAT PRN IV Hypoglycemia 05/23/17 12:15 06/22/17 12:14 Divalproex Sodium (Depakote ER) 1,000 mg EVERY 12 HOURS ORAL 05/29/17 09:00 06/28/17 08:59 06/03/17 22:07 Fluoxetine HCl (PROzac) 20 mg DAILY ORAL 05/27/17 09:00 06/26/17 08:59 Folic Acid (Folate) 1 mg DAILY ORAL 05/27/17 09:00 06/26/17 08:59 06/04/17 10:08 Furosemide (Lasix) 40 mg EVERY 12 HOURS IV 06/04/17 09:00 07/04/17 08:59 06/04/17 10:05 Heparin Sodium (Porcine) (Heparin 5000 units/ml) 5,000 units EVERY 12 HOURS SUBQ 05/23/17 21:00 06/22/17 20:59 06/04/17 10:07 Loperamide HCl (Imodium) 2 mg Q4H PRN ORAL Diarrhea 05/29/17 10:30 06/28/17 10:29 05/29/17 13:53 Methylprednisolone Sodium Succinate (Solu-MEDROL) 60 mg EVERY 12 HOURS IVP 06/02/17 21:00 07/02/17 20:59 06/04/17 10:05 Multivitamins (Multivitamins) 1 tab DAILY ORAL 05/31/17 09:00 06/30/17 08:59 06/04/17 10:08 Ondansetron HCl (Zofran) 4 mg Q6H PRN IVP Nausea & Vomiting 05/23/17 12:15 06/22/17 12:14 Polyethylene Glycol (Miralax) 17 gm DAILYPRN PRN ORAL Constipation 05/23/17 12:15 06/22/17 12:14 Ranitidine HCl (Zantac) 150 mg BEDTIME ORAL 05/26/17 21:00 06/25/17 20:59 06/03/17 22:06 Thiamine HCl (Vitamin B1) 100 mg DAILY ORAL 05/31/17 09:00 06/30/17 08:59 06/03/17 10:09 Zolpidem Tartrate (Ambien) 5 mg HSPRN PRN ORAL Insomnia 06/02/17 19:15 06/09/17 19:14 AMARIS BRIGGS M.D. Jun 04, 2017 19:47
[2017-06-04 20:00] VITALS: BP 109/64
[2017-06-05] VITALS (7 sets, daily range): BP systolic 97–131; BP diastolic 69–80
--- NOTE | 2017-06-05 01:15 | Progress Note ---
NOTE: "DICTATION DISREGARDED" SOURCE OF INFORMATION: Patient and EMR. HISTORY OF PRESENT ILLNESS: Darrian Londono M.D. DR: FIDEL JOB#: [id number] CC:
[2017-06-05] MEDS: Albuterol/Ipratropium 3ml neb HHN SCH ×4 (01:52→20:13)
[2017-06-05 06:41] LABS: HEMATOCRIT 29.5 % (42.0-52.0); HEMOGLOBIN 9.6 G/DL (14.2-18.0); MEAN CORPUSCULAR VOLUME 93 FL (80-99); PLATELET COUNT 167 K/UL (150-450); RED BLOOD COUNT 3.18 M/UL (4.70-6.10); RED CELL DISTRIBUTION WIDTH 13.2 % (11.6-14.8); WHITE BLOOD COUNT 3.4 K/UL (4.8-10.8)
[2017-06-05 07:01] LABS: ALANINE AMINOTRANSFERASE 18 U/L (12-78); ALBUMIN 0.9 G/DL (3.4-5.0); ALBUMIN/GLOBULIN RATIO 0.1 (1.0-2.7); ALKALINE PHOSPHATASE 233 U/L (46-116); ANION GAP 0 mmol/L (5-15); ASPARTATE AMINO TRANSFERASE 75 U/L (15-37); BILIRUBIN,TOTAL 0.2 MG/DL (0.2-1.0); BLOOD UREA NITROGEN 18 mg/dL (7-18); CALCIUM 7.1 MG/DL (8.5-10.1); CARBON DIOXIDE 38 MMOL/L (21-32); CHLORIDE 98 MMOL/L (98-107); CREATININE 0.7 MG/DL (0.55-1.30); POTASSIUM 4.1 MMOL/L (3.5-5.1); SODIUM 136 MMOL/L (136-145)
[2017-06-05] MEDS: Thiamine 100mg tab ORAL SCH (09:00)
[2017-06-05] MEDS: Depakote ER 500mg tab ORAL SCH ×2 (09:00→20:58)
--- NOTE | 2017-06-05 09:30 | General Progress Note ---
Assessment/Plan Status: stable Assessment/Plan ASSESSMENT MSSA PNA Interstitial lung disease acute hypoxemic RF requiring VM severe protein calorie malnutrition diarrhea alcohol dependence depression PLAN OF CARE isolation Once cleared by ID, may be off the isolation current ID and pulmonary workup Subjective ROS Limited/Unobtainable: No Constitutional: Reports: weakness Cardiovascular: Reports: no symptoms Respiratory: Reports: shortness of breath Allergies: Coded Allergies: No Known Allergies (Unverified , 05/23/17) Objective Last 24 Hour Vital Signs Date Time Temp Pulse Resp B/P (MAP) Pulse Ox O2 Delivery O2 Flow Rate FiO2 06/05/17 08:15 97.9 76 21 97/78 99 06/05/17 07:43 Venturi Mask 14.0 55 06/05/17 07:43 72 18 97 Venturi Mask 14.0 55 06/05/17 07:42 97 Venturi Mask 14.0 55 06/05/17 04:00 97.9 72 20 120/70 98 06/05/17 04:00 Venturi Mask 06/05/17 02:02 69 18 99 Venturi Mask 14.0 55 06/05/17 01:52 68 16 97 Venturi Mask 14.0 55 06/05/17 00:00 97.0 75 20 121/78 98 06/05/17 00:00 Venturi Mask 06/04/17 20:00 89 18 98 Venturi Mask 14.0 55 06/04/17 20:00 Venturi Mask 06/04/17 20:00 97.2 86 20 109/64 98 06/04/17 19:50 99 Non-Rebreather 15.0 100 06/04/17 19:50 Non-Rebreather 15.0 100 06/04/17 19:50 72 18 99 Non-Rebreather 15.0 100 06/04/17 16:00 97.3 76 20 124/76 100 06/04/17 14:12 88 18 99 Non-Rebreather 15.0 100 06/04/17 14:04 71 18 99 Non-Rebreather 15.0 100 06/04/17 12:00 97.5 66 20 117/77 100 Intake and Output 06/04/17 06/05/17 19:00 07:00 Intake Total 400 ml 50 ml Output Total 800 ml Balance 400 ml -750 ml Intake Oral 400 ml IV Total 50 ml Output Urine Total 800 ml # Voids 6 Laboratory Tests 06/05/17 05:30: White Blood Count 3.4L, Red Blood Count 3.18L, Hemoglobin 9.6L, Hematocrit 29.5L , Mean Corpuscular Volume 93, Mean Corpuscular Hemoglobin 30.1, Mean Corpuscular Hemoglobin Concent 32.5, Red Cell Distribution Width 13.2, Platelet Count 167, Mean Platelet Volume 9.0, Neutrophils (%) (Auto) , Lymphocytes (%) ( Auto) , Monocytes (%) (Auto) , Eosinophils (%) (Auto) , Basophils (%) (Auto) , Sodium Level 136, Potassium Level 4.1, Chloride Level 98, Carbon Dioxide Level 38H, Anion Gap 0L, Blood Urea Nitrogen 18, Creatinine 0.7, Estimat Glomerular Filtration Rate > 60, Glucose Level 125H, Calcium Level 7.1L, Total Bilirubin 0.2, Aspartate Amino Transf (AST/SGOT) 75H, Alanine Aminotransferase (ALT/SGPT) 18, Alkaline Phosphatase 233H, Total Protein 8.1, Albumin 0.9L, Globulin 7.2, Albumin/Globulin Ratio 0.1L Height (Feet): 5 Height (Inches): 10.00 Weight (Pounds): 90 General Appearance: no apparent distress EENT: PERRL/EOMI Neck: supple Cardiovascular: normal rate Respiratory/Chest: lungs clear Abdomen: soft Extremities: non-tender Neurologic: serologist II-XII 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 Darrian Londono MD Jun 05, 2017 09:29
[2017-06-05] MEDS: Heparin 5000 units/ml inj SUBQ SCH ×2 (09:58→20:56)
[2017-06-05] MEDS: Solu-MEDROL 125mg Inj IVP SCH (09:59)
--- NOTE | 2017-06-05 10:02 | Pulmonology Progress Note ---
Assessment/Plan Problems: (1) Acute hypoxemic respiratory failure (2) Interstitial lung disease (3) Atypical pneumonia (4) Generalized weakness (5) Anemia (6) Protein calorie malnutrition (7) Diarrhea (8) Elevated rheumatoid factor Assessment/Plan HRCT reviewed, diffuse GGO's in the setting of edema + elevated BNP + elevated JVP + global hypokinesis on 05/23 TTE + patient in positive fluid balance. Although there is likely underlying ILD I suspect a significant component of pulmonary edema. For now I will start Lasix 40 mg IV BID and assess response. Will repeat TTE, hopefully will be of a better quality this time. For now ill continue IV steroids and Abx per ID. If no clinical improvement next 1-2 days will need a VATS lung biopsy. Unfortunately, current O2 needs preclude a FOB and TBBx would be of limited utility. -Decrese SOLUMEDROL to 40 IV BID and TAPER -Continue Lasix 40 mg IV BID -Optimize pulmonary hygiene/mobilize as tolerated -Titrate down FiO2 to keep SaO2 > 90% --> attempt to transition to regular NC -RTC and PRN HHN's -Abx per ID -F/U cardiology recs, ? CM w/u -Ideally should have bronch/FOB and at least BAL +/- Bx but not possible given current O2 needs --> based on response to steroids and diuretics I may ask CTS to do a VATS lung Bx -DVT Px: Hep SQ -Monitor volumes Subjective Allergies: Coded Allergies: No Known Allergies (Unverified , 05/23/17) Subjective AFVSS, Off NRBFM, now on VM @ 55% --> SaO2 high 90s less cough, less SOB, no F/C Not getting OOB refusing interventions Tolerating diuresis Objective Last 24 Hour Vital Signs Date Time Temp Pulse Resp B/P (MAP) Pulse Ox O2 Delivery O2 Flow Rate FiO2 06/05/17 09:45 68 120/71 06/05/17 08:15 97.9 76 21 97/78 99 06/05/17 08:15 Venturi Mask 06/05/17 07:43 Venturi Mask 14.0 55 06/05/17 07:43 72 18 97 Venturi Mask 14.0 55 06/05/17 07:42 97 Venturi Mask 14.0 55 06/05/17 07:40 74 18 97 Venturi Mask 14.0 55 06/05/17 04:00 97.9 72 20 120/70 98 06/05/17 04:00 Venturi Mask 06/05/17 02:02 69 18 99 Venturi Mask 14.0 55 06/05/17 01:52 68 16 97 Venturi Mask 14.0 55 06/05/17 00:00 97.0 75 20 121/78 98 06/05/17 00:00 Venturi Mask 06/04/17 20:00 89 18 98 Venturi Mask 14.0 55 06/04/17 20:00 Venturi Mask 06/04/17 20:00 97.2 86 20 109/64 98 06/04/17 19:50 99 Non-Rebreather 15.0 100 06/04/17 19:50 Non-Rebreather 15.0 100 06/04/17 19:50 72 18 99 Non-Rebreather 15.0 100 06/04/17 16:00 97.3 76 20 124/76 100 06/04/17 14:12 88 18 99 Non-Rebreather 15.0 100 06/04/17 14:04 71 18 99 Non-Rebreather 15.0 100 06/04/17 12:00 97.5 66 20 117/77 100 Intake and Output 06/04/17 06/05/17 19:00 07:00 Intake Total 400 ml 50 ml Output Total 800 ml Balance 400 ml -750 ml Intake Oral 400 ml IV Total 50 ml Output Urine Total 800 ml # Voids 6 HEENT: normocephalic, atraumatic, mucous membranes moist Respiratory/Chest: crackles/rales - scattered Cardiovascular: normal peripheral pulses, normal rate, regular rhythm Abdomen: normal bowel sounds, soft, non tender, no organomegaly Extremities: no cyanosis, no clubbing, no edema Laboratory Tests 06/05/17 05:30: White Blood Count 3.4L, Red Blood Count 3.18L, Hemoglobin 9.6L, Hematocrit 29.5L , Mean Corpuscular Volume 93, Mean Corpuscular Hemoglobin 30.1, Mean Corpuscular Hemoglobin Concent 32.5, Red Cell Distribution Width 13.2, Platelet Count 167, Mean Platelet Volume 9.0, Neutrophils (%) (Auto) , Lymphocytes (%) ( Auto) , Monocytes (%) (Auto) , Eosinophils (%) (Auto) , Basophils (%) (Auto) , Sodium Level 136, Potassium Level 4.1, Chloride Level 98, Carbon Dioxide Level 38H, Anion Gap 0L, Blood Urea Nitrogen 18, Creatinine 0.7, Estimat Glomerular Filtration Rate > 60, Glucose Level 125H, Calcium Level 7.1L, Total Bilirubin 0.2, Aspartate Amino Transf (AST/SGOT) 75H, Alanine Aminotransferase (ALT/SGPT) 18, Alkaline Phosphatase 233H, Total Protein 8.1, Albumin 0.9L, Globulin 7.2, Albumin/Globulin Ratio 0.1L Current Medications Medications (Trade) Dose Ordered Sig/Anna Route PRN Reason Start Time Stop Time Status Last Admin Dose Admin Acetaminophen (Tylenol) 650 mg Q4H PRN ORAL T>100.5 05/23/17 12:15 06/22/17 12:14 05/29/17 21:16 Albuterol/ Ipratropium (Albuterol/ Ipratropium) 3 ml Q4H PRN N Shortness of Breath 06/02/17 15:00 06/07/17 14:59 Albuterol/ Ipratropium (Albuterol/ Ipratropium) 3 ml Q6HRT HHN 06/02/17 19:00 06/07/17 18:59 06/05/17 07:40 Cefazolin Sodium 50 ml @ 110 mls/hr Q8HR@0000,1000,1800 IV 06/01/17 18:00 06/05/17 17:59 06/04/17 21:17 Dextrose (Dextrose 50%) STAT PRN IV Hypoglycemia 05/23/17 12:15 06/22/17 12:14 Divalproex Sodium (Depakote ER) 1,000 mg EVERY 12 HOURS ORAL 05/29/17 09:00 06/28/17 08:59 06/03/17 22:07 Fluoxetine HCl (PROzac) 20 mg DAILY ORAL 05/27/17 09:00 06/26/17 08:59 Folic Acid (Folate) 1 mg DAILY ORAL 05/27/17 09:00 06/26/17 08:59 06/04/17 10:08 Furosemide (Lasix) 40 mg EVERY 12 HOURS IV 06/04/17 09:00 07/04/17 08:59 06/04/17 21:17 Heparin Sodium (Porcine) (Heparin 5000 units/ml) 5,000 units EVERY 12 HOURS SUBQ 05/23/17 21:00 06/22/17 20:59 06/04/17 21:19 Loperamide HCl (Imodium) 2 mg Q4H PRN ORAL Diarrhea 05/29/17 10:30 06/28/17 10:29 05/29/17 13:53 Methylprednisolone Sodium Succinate (Solu-MEDROL) 60 mg EVERY 12 HOURS IVP 06/02/17 21:00 07/02/17 20:59 06/04/17 21:18 Multivitamins (Multivitamins) 1 tab DAILY ORAL 05/31/17 09:00 06/30/17 08:59 06/04/17 10:08 Ondansetron HCl (Zofran) 4 mg Q6H PRN IVP Nausea & Vomiting 05/23/17 12:15 06/22/17 12:14 Polyethylene Glycol (Miralax) 17 gm DAILYPRN PRN ORAL Constipation 05/23/17 12:15 06/22/17 12:14 Ranitidine HCl (Zantac) 150 mg BEDTIME ORAL 05/26/17 21:00 06/25/17 20:59 06/04/17 21:17 Thiamine HCl (Vitamin B1) 100 mg DAILY ORAL 05/31/17 09:00 06/30/17 08:59 06/03/17 10:09 Zolpidem Tartrate (Ambien) 5 mg HSPRN PRN ORAL Insomnia 06/02/17 19:15 06/09/17 19:14 ALONA DAWKINS M.D. Jun 05, 2017 10:02
[2017-06-05] MEDS: ceFAZolin 2gm/50ml Premix 50 ML IV SCH (10:22)
--- NOTE | 2017-06-05 14:58 | GI Progress Note ---
Assessment/Plan Problems: (1) Generalized weakness ICD Codes: R53.1 - Weakness SNOMED: 14063053 (2) Anemia ICD Codes: D64.9 - Anemia, unspecified SNOMED: 211354196 (3) Severe protein-calorie malnutrition ICD Codes: E43 - Unspecified severe protein-calorie malnutrition SNOMED: 114322280 (4) Atypical pneumonia ICD Codes: J18.9 - Pneumonia, unspecified organism SNOMED: 535731709 (5) Protein calorie malnutrition ICD Codes: E46 - Unspecified protein-calorie malnutrition SNOMED: 140503505 Qualifiers: Qualified Codes: E44.0 - Moderate protein-calorie malnutrition (6) Diarrhea ICD Codes: R19.7 - Diarrhea, unspecified SNOMED: 44260559 Qualifiers: Qualified Codes: R19.7 - Diarrhea, unspecified Status: unchanged Status Narrative Discussed with Dr. Gamez. Assessment/Plan CT chest reviewed. cdiff negative iron levels unremarkable HIV negative airborne r/o TB KUB r/o chronic pancreatitis >> unremarkable OB stool r/o GI bleed >> negative Tissue Transglutaminase IgA r/o celiac >> negative fu pulmonary recs monitor H&H, prn transfusions Imodium prn, Lomotil if diarrhea persists ppi folate PO H2B fu labs Subjective Subjective refuse PO meds diarrhea Objective Last 24 Hour Vital Signs Date Time Temp Pulse Resp B/P (MAP) Pulse Ox O2 Delivery O2 Flow Rate FiO2 06/05/17 13:00 78 20 98 Venturi Mask 6.0 35 06/05/17 12:53 74 18 98 Venturi Mask 6.0 35 06/05/17 12:15 97.1 74 19 131/69 99 Room Air 06/05/17 09:45 68 120/71 06/05/17 08:15 97.9 76 21 97/78 99 06/05/17 08:15 Venturi Mask 06/05/17 07:43 Venturi Mask 14.0 55 06/05/17 07:43 72 18 97 Venturi Mask 14.0 55 06/05/17 07:42 97 Venturi Mask 14.0 55 06/05/17 07:40 74 18 97 Venturi Mask 14.0 55 06/05/17 04:00 97.9 72 20 120/70 98 06/05/17 04:00 Venturi Mask 06/05/17 02:02 69 18 99 Venturi Mask 14.0 55 06/05/17 01:52 68 16 97 Venturi Mask 14.0 55 06/05/17 00:00 97.0 75 20 121/78 98 06/05/17 00:00 Venturi Mask 06/04/17 20:00 89 18 98 Venturi Mask 14.0 55 06/04/17 20:00 Venturi Mask 06/04/17 20:00 97.2 86 20 109/64 98 06/04/17 19:50 99 Non-Rebreather 15.0 100 06/04/17 19:50 Non-Rebreather 15.0 100 06/04/17 19:50 72 18 99 Non-Rebreather 15.0 100 06/04/17 16:00 97.3 76 20 124/76 100 Intake and Output 06/04/17 06/05/17 19:00 07:00 Intake Total 400 ml 50 ml Output Total 800 ml Balance 400 ml -750 ml Intake Oral 400 ml IV Total 50 ml Output Urine Total 800 ml # Voids 6 Laboratory Tests Test 06/05/17 05:30 White Blood Count 3.4 K/UL (4.8-10.8) L Red Blood Count 3.18 M/UL (4.70-6.10) L Hemoglobin 9.6 G/DL (14.2-18.0) L Hematocrit 29.5 % (42.0-52.0) L Mean Corpuscular Volume 93 FL (80-99) Mean Corpuscular Hemoglobin 30.1 PG (27.0-31.0) Mean Corpuscular Hemoglobin Concent 32.5 G/DL (32.0-36.0) Red Cell Distribution Width 13.2 % (11.6-14.8) Platelet Count 167 K/UL (150-450) Mean Platelet Volume 9.0 FL (6.5-10.1) Neutrophils (%) (Auto) % (45.0-75.0) Lymphocytes (%) (Auto) % (20.0-45.0) Monocytes (%) (Auto) % (1.0-10.0) Eosinophils (%) (Auto) % (0.0-3.0) Basophils (%) (Auto) % (0.0-2.0) Sodium Level 136 MMOL/L (136-145) Potassium Level 4.1 MMOL/L (3.5-5.1) Chloride Level 98 MMOL/L (98-107) Carbon Dioxide Level 38 MMOL/L (21-32) H Anion Gap 0 mmol/L (5-15) L Blood Urea Nitrogen 18 mg/dL (7-18) Creatinine 0.7 MG/DL (0.55-1.30) Estimat Glomerular Filtration Rate > 60 mL/min (>60) Glucose Level 125 MG/DL (74-106) H Calcium Level 7.1 MG/DL (8.5-10.1) L Total Bilirubin 0.2 MG/DL (0.2-1.0) Aspartate Amino Transf (AST/SGOT) 75 U/L (15-37) H Alanine Aminotransferase (ALT/SGPT) 18 U/L (12-78) Alkaline Phosphatase 233 U/L (46-116) H Pro-B-Type Natriuretic Peptide 3107 pg/mL (0-125) H Total Protein 8.1 G/DL (6.4-8.2) Albumin 0.9 G/DL (3.4-5.0) L Globulin 7.2 g/dL Albumin/Globulin Ratio 0.1 (1.0-2.7) L Height (Feet): 5 Height (Inches): 10.00 Weight (Pounds): 90 General Appearance: WD/WN, no apparent distress, alert, thin Cardiovascular: normal rate Respiratory/Chest: other - venturi mask Abdominal Exam: normal bowel sounds, non tender, soft Extremities: normal range of motion, non-tender Alyssa Felix N.P. Jun 05, 2017 14:58
--- NOTE | 2017-06-05 18:09 | Diagnostic Imaging Report ---
Indication: COPD Technique: XRAY Chest 1v Comparison: 06/01/2017, CT chest 06/03/2017 Findings: Heart size and mediastinal contours are stable allowing for differences in technique/inspiration. There are extensive bilateral interstitial and patchy bilateral airspace opacities. There is no pleural effusion. No pneumothorax. Impression: Extensive interstitial and bilateral airspace opacities without significant interval change from the prior exam.
--- NOTE | 2017-06-05 19:18 | Infectious Diseases Prog Note ---
Assessment/Plan Assessment/Plan ASSESSMENT: The patient is a 41-year-old male with Weight loss Fever , SP Pneumonia. . Sp Cx : MSSA AFBx 3 : Neg ( 3rd from 05/26 not in EMR ) T Spot : neg Crytpo and blastomycosis: JOHANNA Neg histo : did not resulted due lab issues CT: Extensive interstitial and airspace parenchymal disease, and honeycomb appearance of much of the lower lobe and right middle lobe interstitial component, HIV negative Chronic diarrhea resolved, stool Cx : neg ? pancreatic insufficiency due to chronic alcohol abuse Elevated ESR , CRP and RF PLAN: DC Ancef d# 10 / 10 and monitor pt off of AB Rx 05/30 SP Zithromax d$# 5 / 5 06/01 SP ( refusing) Flagyl d# 46 05/27 SP vancomycin, cefepime d# 5, Monitor CBC Monitor BMP. Stool for ova and parasite. mycobacterium TB PCR Serology (coccidio , reordered ) GI following for the patient's chronic diarrhea. monitor Xcray : P possilbe lung Bx and Bronch as per Pul DC Resp isolation Subjective Constitutional: Denies: no symptoms, fever, chills, fatigue, anorexia, drenching sweats, other Allergies: Coded Allergies: No Known Allergies (Unverified , 05/23/17) Subjective afebrile Objective Vital Signs Last 24 Hour Vital Signs Date Time Temp Pulse Resp B/P (MAP) Pulse Ox O2 Delivery O2 Flow Rate FiO2 06/05/17 16:15 97.2 69 21 122/80 99 Room Air 06/05/17 13:00 78 20 98 Venturi Mask 6.0 35 06/05/17 12:53 74 18 98 Venturi Mask 6.0 35 06/05/17 12:15 97.1 74 19 131/69 99 Room Air 06/05/17 09:45 68 120/71 06/05/17 08:15 97.9 76 21 97/78 99 06/05/17 08:15 Venturi Mask 06/05/17 07:43 Venturi Mask 14.0 55 06/05/17 07:43 72 18 97 Venturi Mask 14.0 55 06/05/17 07:42 97 Venturi Mask 14.0 55 06/05/17 07:40 74 18 97 Venturi Mask 14.0 55 06/05/17 04:00 97.9 72 20 120/70 98 06/05/17 04:00 Venturi Mask 06/05/17 02:02 69 18 99 Venturi Mask 14.0 55 06/05/17 01:52 68 16 97 Venturi Mask 14.0 55 06/05/17 00:00 97.0 75 20 121/78 98 06/05/17 00:00 Venturi Mask 06/04/17 20:00 89 18 98 Venturi Mask 14.0 55 06/04/17 20:00 Venturi Mask 06/04/17 20:00 97.2 86 20 109/64 98 06/04/17 19:50 99 Non-Rebreather 15.0 100 06/04/17 19:50 Non-Rebreather 15.0 100 06/04/17 19:50 72 18 99 Non-Rebreather 15.0 100 Height (Feet): 5 Height (Inches): 10.00 Weight (Pounds): 90 HEENT: anicteric Respiratory/Chest: normal breath sounds Cardiovascular: normal rate Abdomen: non distended Laboratory Tests Test 06/05/17 05:30 White Blood Count 3.4 K/UL (4.8-10.8) L Red Blood Count 3.18 M/UL (4.70-6.10) L Hemoglobin 9.6 G/DL (14.2-18.0) L Hematocrit 29.5 % (42.0-52.0) L Mean Corpuscular Volume 93 FL (80-99) Mean Corpuscular Hemoglobin 30.1 PG (27.0-31.0) Mean Corpuscular Hemoglobin Concent 32.5 G/DL (32.0-36.0) Red Cell Distribution Width 13.2 % (11.6-14.8) Platelet Count 167 K/UL (150-450) Mean Platelet Volume 9.0 FL (6.5-10.1) Neutrophils (%) (Auto) % (45.0-75.0) Lymphocytes (%) (Auto) % (20.0-45.0) Monocytes (%) (Auto) % (1.0-10.0) Eosinophils (%) (Auto) % (0.0-3.0) Basophils (%) (Auto) % (0.0-2.0) Sodium Level 136 MMOL/L (136-145) Potassium Level 4.1 MMOL/L (3.5-5.1) Chloride Level 98 MMOL/L (98-107) Carbon Dioxide Level 38 MMOL/L (21-32) H Anion Gap 0 mmol/L (5-15) L Blood Urea Nitrogen 18 mg/dL (7-18) Creatinine 0.7 MG/DL (0.55-1.30) Estimat Glomerular Filtration Rate > 60 mL/min (>60) Glucose Level 125 MG/DL (74-106) H Calcium Level 7.1 MG/DL (8.5-10.1) L Total Bilirubin 0.2 MG/DL (0.2-1.0) Aspartate Amino Transf (AST/SGOT) 75 U/L (15-37) H Alanine Aminotransferase (ALT/SGPT) 18 U/L (12-78) Alkaline Phosphatase 233 U/L (46-116) H Pro-B-Type Natriuretic Peptide 3107 pg/mL (0-125) H Total Protein 8.1 G/DL (6.4-8.2) Albumin 0.9 G/DL (3.4-5.0) L Globulin 7.2 g/dL Albumin/Globulin Ratio 0.1 (1.0-2.7) L Current Medications Medications (Trade) Dose Ordered Sig/Anna Route PRN Reason Start Time Stop Time Status Last Admin Dose Admin Acetaminophen (Tylenol) 650 mg Q4H PRN ORAL T>100.5 05/23/17 12:15 06/22/17 12:14 05/29/17 21:16 Albuterol/ Ipratropium (Albuterol/ Ipratropium) 3 ml Q4H PRN HHN Shortness of Breath 06/02/17 15:00 06/07/17 14:59 Albuterol/ Ipratropium (Albuterol/ Ipratropium) 3 ml Q6HRT HHN 06/02/17 19:00 06/07/17 18:59 06/05/17 12:52 Dextrose (Dextrose 50%) STAT PRN IV Hypoglycemia 05/23/17 12:15 06/22/17 12:14 Divalproex Sodium (Depakote ER) 1,000 mg EVERY 12 HOURS ORAL 05/29/17 09:00 06/28/17 08:59 06/03/17 22:07 Fluoxetine HCl (PROzac) 20 mg DAILY ORAL 05/27/17 09:00 06/26/17 08:59 Folic Acid (Folate) 1 mg DAILY ORAL 05/27/17 09:00 06/26/17 08:59 06/04/17 10:08 Furosemide (Lasix) 40 mg EVERY 12 HOURS IV 06/04/17 09:00 07/04/17 08:59 06/05/17 09:58 Heparin Sodium (Porcine) (Heparin 5000 units/ml) 5,000 units EVERY 12 HOURS SUBQ 05/23/17 21:00 06/22/17 20:59 06/05/17 09:58 Loperamide HCl (Imodium) 2 mg Q4H PRN ORAL Diarrhea 05/29/17 10:30 06/28/17 10:29 05/29/17 13:53 Methylprednisolone Sodium Succinate (Solu-MEDROL) 40 mg EVERY 12 HOURS IVP 06/05/17 21:00 07/05/17 20:59 Multivitamins (Multivitamins) 1 tab DAILY ORAL 05/31/17 09:00 06/30/17 08:59 06/04/17 10:08 Ondansetron HCl (Zofran) 4 mg Q6H PRN IVP Nausea & Vomiting 05/23/17 12:15 06/22/17 12:14 Polyethylene Glycol (Miralax) 17 gm DAILYPRN PRN ORAL Constipation 05/23/17 12:15 06/22/17 12:14 Ranitidine HCl (Zantac) 150 mg BEDTIME ORAL 05/26/17 21:00 06/25/17 20:59 06/04/17 21:17 Thiamine HCl (Vitamin B1) 100 mg DAILY ORAL 05/31/17 09:00 06/30/17 08:59 06/03/17 10:09 Zolpidem Tartrate (Ambien) 5 mg HSPRN PRN ORAL Insomnia 06/02/17 19:15 06/09/17 19:14 AMARIS BRIGGS M.D. Jun 05, 2017 19:18
[2017-06-05] MEDS: Solu-MEDROL 40mg Inj IVP SCH (20:52)
--- NOTE | 2017-06-05 21:47 | Progress Note ---
DATE: 06/05/2017 SUBJECTIVE: The patient's mental status is unchanged from previous encounter. Continues to be uncooperative at times and irritable. MENTAL STATUS EXAMINATION: Alert and oriented to time, self, place, and situation he is in. Mood is neutral. Affect is constricted. Thought process is concrete. Thought content is negative for suicidal or homicidal ideation. ASSESSMENT: Mood disorder, possibly personality. PLAN: We will continue current medications. Amanda Mina M.D. DR: Belinda JOB#: [id number] CC:
--- NOTE | 2017-06-05 23:52 | Cardiology Report ---
APPROVED REPORT EXAM: Two-dimensional and M-mode echocardiogram with Doppler and color Doppler. INDICATION Congestive Heart Failure M-Mode DIMENSIONS IVSd1.1 (0.7-1.1cm)Left Atrium (MM)2.6 (1.6-4.0cm) LVDd4.8 (3.5-5.6cm)Aortic Root3.2 (2.0-3.7cm) PWd1.0 (0.7-1.1cm)Aortic Cusp Exc.2.2 (1.5-2.0cm) LVDs3.4 (2.5-4.0cm) PWs1.6 cm Technically difficult study due to pts resistance and sensitivity to scan probe. Normal left ventricular chamber size, systolic function and wall motion to extent visualized. Left ventricular ejection fraction estimated to be 50-55 %. No evidence of left ventricular hypertrophy. Small posterior pericardial effusion. All other cardiac chamber sizes are within normal limits. Mild focal aortic valve sclerosis with adequate cusp excursion. Mildly thickened mitral valve leaflets with normal excursion. Mild mitral annulus and aortic root calcification. Normal pulmonic valve structure. Normal tricuspid valve structure. IVC at normal size with physiologic collapse. A color flow and spectral Doppler study was performed and revealed: Mild to moderate aortic regurgitation. Trace mitral regurgitation. Mitral inflow indicates normal left ventricular diastolic function. Mild tricuspid regurgitation. Tricuspid systolic velocities suggests peak right ventricular systolic pressure of 47 mmHg, consistent with moderate pulmonary hypertension. Mild pulmonic regurgitation present.
--- NOTE | 2017-06-06 00:07 | Cardiology Report ---
APPROVED REPORT EXAM: Two-dimensional and M-mode echocardiogram with Doppler and color Doppler. INDICATION Congestive Heart Failure M-Mode DIMENSIONS IVSd1.0 (0.7-1.1cm)Left Atrium (MM)2.6 (1.6-4.0cm) LVDd4.1 (3.5-5.6cm)Aortic Root2.9 (2.0-3.7cm) PWd1.0 (0.7-1.1cm)Aortic Cusp Exc.1.7 (1.5-2.0cm) IVSs1.1 cm LVDs2.9 (2.5-4.0cm) PWs1.6 cm Technically difficult study due to poor acoustical windows . Left ventricular ejection fraction estimated to be 50 %. No evidence of left ventricular hypertrophy . No evidence of pericardial effusion All other cardiac chamber size are within normal. Focal aortic valve sclerosis with adequate cusp excursion. Thickened mitral valve leaflets with normal excursion. Mitral annulus and aortic root calcification. Normal Pulmonic valve structure. Normal tricuspid valve structure. IVC at 1.4 cm with physiologic collapse. A color flow and spectral Doppler study was performed and revealed: Mild aortic regurgitation. Trace mitral regurgitation. Mitral inflow indicates normal left ventricular diastolic function. / Mitral inflow velocities indicates possible pseudo normalization pattern implying moderately elevated left atrial pressure (Grade II ) Trace tricuspid regurgitation. Tricuspid systolic velocities suggests peak right ventricular systolic pressure of 16 mmHg. No Pulmonic regurgitation present.
[2017-06-06] MEDS: Albuterol/Ipratropium 3ml neb HHN SCH ×4 (02:00→20:37)
[2017-06-06 04:00] VITALS: BP 125/78
[2017-06-06 08:01] LABS: HEMATOCRIT 30.8 % (42.0-52.0); HEMOGLOBIN 9.8 G/DL (14.2-18.0); MEAN CORPUSCULAR VOLUME 93 FL (80-99); PLATELET COUNT 163 K/UL (150-450); RED BLOOD COUNT 3.29 M/UL (4.70-6.10); RED CELL DISTRIBUTION WIDTH 13.3 % (11.6-14.8); WHITE BLOOD COUNT 3.3 K/UL (4.8-10.8)
--- NOTE | 2017-06-06 08:15 | General Progress Note ---
Assessment/Plan Problem List: (1) Interstitial lung disease ICD Codes: J84.9 - Interstitial pulmonary disease, unspecified SNOMED: 029929380 (2) Diarrhea ICD Codes: R19.7 - Diarrhea, unspecified SNOMED: 71410667 Qualifiers: Qualified Codes: R19.7 - Diarrhea, unspecified (3) Protein calorie malnutrition ICD Codes: E46 - Unspecified protein-calorie malnutrition SNOMED: 173170376 Qualifiers: Qualified Codes: E44.0 - Moderate protein-calorie malnutrition (4) Atypical pneumonia ICD Codes: J18.9 - Pneumonia, unspecified organism SNOMED: 584489038 (5) Elevated rheumatoid factor ICD Codes: R76.8 - Other specified abnormal immunological findings in serum SNOMED: 750694617 (6) Generalized weakness ICD Codes: R53.1 - Weakness SNOMED: 62040292 (7) Anemia ICD Codes: D64.9 - Anemia, unspecified SNOMED: 523795092 Assessment/Plan cdiff negative iron levels unremarkable HIV negative airborne r/o TB KUB r/o chronic pancreatitis >> unremarkable OB stool r/o GI bleed >> negative Tissue Transglutaminase IgA r/o celiac >> negative fu pulmonary recs monitor H&H, prn transfusions Imodium prn, Lomotil if diarrhea persists ppi folate PO H2B fu labs Subjective ROS Limited/Unobtainable: Yes Allergies: Coded Allergies: No Known Allergies (Unverified , 05/23/17) Subjective no event over night Objective Last 24 Hour Vital Signs Date Time Temp Pulse Resp B/P (MAP) Pulse Ox O2 Delivery O2 Flow Rate FiO2 06/06/17 07:56 99 Venturi Mask 8.0 40 06/06/17 07:56 70 18 98 Venturi Mask 8.0 40 06/06/17 07:56 Venturi Mask 8.0 40 06/06/17 04:00 97.9 70 18 125/78 100 06/06/17 02:07 60 16 98 Venturi Mask 8.0 40 06/06/17 01:59 58 18 97 Venturi Mask 8.0 40 06/06/17 00:00 Venturi Mask 06/05/17 20:24 70 16 98 Venturi Mask 8.0 40 06/05/17 20:16 67 20 94 Venturi Mask 8.0 40 06/05/17 20:15 Venturi Mask 8.0 40 06/05/17 20:14 94 Venturi Mask 8.0 40 06/05/17 20:00 Venturi Mask 06/05/17 20:00 97.7 84 20 129/77 93 06/05/17 16:15 97.2 69 21 122/80 99 Room Air 06/05/17 13:00 78 20 98 Venturi Mask 6.0 35 06/05/17 12:53 74 18 98 Venturi Mask 6.0 35 06/05/17 12:15 97.1 74 19 131/69 99 Room Air 06/05/17 09:45 68 120/71 06/05/17 08:15 97.9 76 21 97/78 99 06/05/17 08:15 Venturi Mask Intake and Output 06/05/17 06/06/17 19:00 07:00 Intake Total 920 ml Output Total 1470 ml 850 ml Balance -550 ml -850 ml Intake Oral 920 ml Output Urine Total 1470 ml 850 ml # Voids 4 Laboratory Tests 06/06/17 06:32: White Blood Count 3.3L, Red Blood Count 3.29L, Hemoglobin 9.8L, Hematocrit 30.8L , Mean Corpuscular Volume 93, Mean Corpuscular Hemoglobin 29.8, Mean Corpuscular Hemoglobin Concent 31.8L, Red Cell Distribution Width 13.3, Platelet Count 163, Mean Platelet Volume 9.0, Neutrophils (%) (Auto) , Lymphocytes (%) (Auto) , Monocytes (%) (Auto) , Eosinophils (%) (Auto) , Basophils (%) (Auto) , Neutrophils % (Manual) [Pending], Lymphocytes % (Manual) [Pending], Platelet Estimate [Pending], Platelet Morphology [Pending], Sodium Level [Pending], Potassium Level [Pending], Chloride Level [Pending], Carbon Dioxide Level [Pending], Blood Urea Nitrogen [Pending], Creatinine [Pending], Estimat Glomerular Filtration Rate [Pending], Glucose Level [Pending], Calcium Level [Pending], Total Bilirubin [Pending], Aspartate Amino Transf (AST/SGOT) [ Pending], Alanine Aminotransferase (ALT/SGPT) [Pending], Alkaline Phosphatase [ Pending], Total Protein [Pending], Albumin [Pending], Globulin [Pending] Height (Feet): 5 Height (Inches): 10.00 Weight (Pounds): 90 General Appearance: alert EENT: normal ENT inspection Neck: supple Cardiovascular: normal rate Respiratory/Chest: decreased breath sounds Abdomen: normal bowel sounds, non tender, soft Extremities: non-tender SAIMA RUBIO Jun 06, 2017 08:15
[2017-06-06 08:21] VITALS: BP 129/86
[2017-06-06 08:26] LABS: ALANINE AMINOTRANSFERASE 29 U/L (12-78); ALBUMIN 1.1 G/DL (3.4-5.0); ALBUMIN/GLOBULIN RATIO 0.1 (1.0-2.7); ALKALINE PHOSPHATASE 276 U/L (46-116); ANION GAP -1 mmol/L (5-15); ASPARTATE AMINO TRANSFERASE 77 U/L (15-37); BILIRUBIN,TOTAL 0.2 MG/DL (0.2-1.0); BLOOD UREA NITROGEN 20 mg/dL (7-18); CALCIUM 7.6 MG/DL (8.5-10.1); CARBON DIOXIDE 39 MMOL/L (21-32); CHLORIDE 97 MMOL/L (98-107); CREATININE 0.7 MG/DL (0.55-1.30); POTASSIUM 3.5 MMOL/L (3.5-5.1); SODIUM 137 MMOL/L (136-145)
[2017-06-06] MEDS: Heparin 5000 units/ml inj SUBQ SCH ×2 (08:32→20:23)
[2017-06-06] MEDS: Solu-MEDROL 40mg Inj IVP SCH (08:33)
[2017-06-06] MEDS: Depakote ER 500mg tab ORAL SCH ×2 (08:35→21:00)
[2017-06-06] MEDS: Thiamine 100mg tab ORAL SCH (08:36)
--- NOTE | 2017-06-06 10:13 | Pulmonology Progress Note ---
Assessment/Plan Problems: (1) Acute hypoxemic respiratory failure (2) Interstitial lung disease (3) Atypical pneumonia (4) Generalized weakness (5) Anemia (6) Protein calorie malnutrition (7) Diarrhea (8) Elevated rheumatoid factor Assessment/Plan -Repeat HIV, check T cell panel, check immunoglobulins -PA/LAT CXR -Check CT A/P for underlying malignancy, patient's cachexia not entirely clear -Will D/W Dr. Goodwin, if clinically and radiographically not improved by the end of the weekend will need a lung biopsy -Decrese SOLUMEDROL to 30 IV BID and TAPER -D/C Lasix -Optimize pulmonary hygiene/mobilize as tolerated -Titrate down FiO2 to keep SaO2 > 90% --> D/W RT, patient reluctant to come off FM, will D/C VM and start NC and titrate down -RTC and PRN HHN's -Off Abx per ID -F/U cardiology recs -Ideally should have bronch/FOB and at least BAL +/- Bx but not possible given current O2 needs --> based on response to steroids and diuretics I may ask CTS to do a VATS lung Bx -DVT Px: Hep SQ -Monitor volumes Subjective Allergies: Coded Allergies: No Known Allergies (Unverified , 05/23/17) Subjective AFVSS, Off NRBFM, FiO2 down to 40 CXR with minimal improvement less cough, less SOB, no F/C Not getting OOB refusing interventions Tolerating diuresis but repeat TTE without elevated filling pressures Objective Last 24 Hour Vital Signs Date Time Temp Pulse Resp B/P (MAP) Pulse Ox O2 Delivery O2 Flow Rate FiO2 06/06/17 08:21 97.4 65 20 129/86 95 06/06/17 08:05 70 16 98 Venturi Mask 8.0 40 06/06/17 07:56 99 Venturi Mask 8.0 40 06/06/17 07:56 70 18 98 Venturi Mask 8.0 40 06/06/17 07:56 Venturi Mask 8.0 40 06/06/17 04:00 97.9 70 18 125/78 100 06/06/17 02:07 60 16 98 Venturi Mask 8.0 40 06/06/17 01:59 58 18 97 Venturi Mask 8.0 40 06/06/17 00:00 Venturi Mask 06/05/17 20:24 70 16 98 Venturi Mask 8.0 40 06/05/17 20:16 67 20 94 Venturi Mask 8.0 40 06/05/17 20:15 Venturi Mask 8.0 40 06/05/17 20:14 94 Venturi Mask 8.0 40 06/05/17 20:00 Venturi Mask 06/05/17 20:00 97.7 84 20 129/77 93 06/05/17 16:15 97.2 69 21 122/80 99 Room Air 06/05/17 13:00 78 20 98 Venturi Mask 6.0 35 06/05/17 12:53 74 18 98 Venturi Mask 6.0 35 06/05/17 12:15 97.1 74 19 131/69 99 Room Air Intake and Output 06/05/17 06/06/17 19:00 07:00 Intake Total 920 ml Output Total 1470 ml 850 ml Balance -550 ml -850 ml Intake Oral 920 ml Output Urine Total 1470 ml 850 ml # Voids 4 General Appearance: WD/WN, no acute distress HEENT: normocephalic, atraumatic, anicteric, mucous membranes moist Respiratory/Chest: rhonchi - scattered anterior, improved air movement Cardiovascular: normal peripheral pulses, normal rate, regular rhythm Abdomen: normal bowel sounds, soft, non tender, no organomegaly, non distended , no mass Extremities: no cyanosis, no clubbing, no edema Laboratory Tests 06/06/17 06:32: White Blood Count 3.3L, Red Blood Count 3.29L, Hemoglobin 9.8L, Hematocrit 30.8L , Mean Corpuscular Volume 93, Mean Corpuscular Hemoglobin 29.8, Mean Corpuscular Hemoglobin Concent 31.8L, Red Cell Distribution Width 13.3, Platelet Count 163, Mean Platelet Volume 9.0, Neutrophils (%) (Auto) , Lymphocytes (%) (Auto) , Monocytes (%) (Auto) , Eosinophils (%) (Auto) , Basophils (%) (Auto) , Neutrophils % (Manual) [Pending], Lymphocytes % (Manual) [Pending], Platelet Estimate [Pending], Platelet Morphology [Pending], Sodium Level 137, Potassium Level 3.5, Chloride Level 97L, Carbon Dioxide Level 39H, Anion Gap -1L, Blood Urea Nitrogen 20H, Creatinine 0.7, Estimat Glomerular Filtration Rate > 60, Glucose Level 155H, Calcium Level 7.6L, Total Bilirubin 0.2, Aspartate Amino Transf (AST/SGOT) 77H, Alanine Aminotransferase (ALT/SGPT) 29, Alkaline Phosphatase 276H, Total Protein 8.5H, Albumin 1.1L, Globulin 7.4, Albumin/Globulin Ratio 0.1L Current Medications Medications (Trade) Dose Ordered Sig/Anna Route PRN Reason Start Time Stop Time Status Last Admin Dose Admin Acetaminophen (Tylenol) 650 mg Q4H PRN ORAL T>100.5 05/23/17 12:15 06/22/17 12:14 05/29/17 21:16 Albuterol/ Ipratropium (Albuterol/ Ipratropium) 3 ml Q4H PRN HHN Shortness of Breath 06/02/17 15:00 06/07/17 14:59 Albuterol/ Ipratropium (Albuterol/ Ipratropium) 3 ml Q6HRT HHN 06/02/17 19:00 06/07/17 18:59 06/06/17 07:56 Dextrose (Dextrose 50%) STAT PRN IV Hypoglycemia 05/23/17 12:15 06/22/17 12:14 Divalproex Sodium (Depakote ER) 1,000 mg EVERY 12 HOURS ORAL 05/29/17 09:00 06/28/17 08:59 06/03/17 22:07 Fluoxetine HCl (PROzac) 20 mg DAILY ORAL 05/27/17 09:00 06/26/17 08:59 06/06/17 08:35 Folic Acid (Folate) 1 mg DAILY ORAL 05/27/17 09:00 06/26/17 08:59 06/04/17 10:08 Furosemide (Lasix) 40 mg EVERY 12 HOURS IV 06/04/17 09:00 07/04/17 08:59 06/06/17 08:33 Heparin Sodium (Porcine) (Heparin 5000 units/ml) 5,000 units EVERY 12 HOURS SUBQ 05/23/17 21:00 06/22/17 20:59 06/05/17 09:58 Loperamide HCl (Imodium) 2 mg Q4H PRN ORAL Diarrhea 05/29/17 10:30 06/28/17 10:29 05/29/17 13:53 Methylprednisolone Sodium Succinate (Solu-MEDROL) 40 mg EVERY 12 HOURS IVP 06/05/17 21:00 07/05/17 20:59 06/06/17 08:33 Multivitamins (Multivitamins) 1 tab DAILY ORAL 05/31/17 09:00 06/30/17 08:59 06/04/17 10:08 Ondansetron HCl (Zofran) 4 mg Q6H PRN IVP Nausea & Vomiting 05/23/17 12:15 06/22/17 12:14 Polyethylene Glycol (Miralax) 17 gm DAILYPRN PRN ORAL Constipation 05/23/17 12:15 06/22/17 12:14 Ranitidine HCl (Zantac) 150 mg BEDTIME ORAL 05/26/17 21:00 06/25/17 20:59 06/05/17 20:53 Thiamine HCl (Vitamin B1) 100 mg DAILY ORAL 05/31/17 09:00 06/30/17 08:59 06/03/17 10:09 Zolpidem Tartrate (Ambien) 5 mg HSPRN PRN ORAL Insomnia 06/02/17 19:15 06/09/17 19:14 ALONA DAWKINS M.D. Jun 06, 2017 10:13
--- NOTE | 2017-06-06 10:31 | Infectious Diseases Prog Note ---
Assessment/Plan Assessment/Plan ASSESSMENT: The patient is a 41-year-old male with Weight loss Fever , SP Pneumonia. . Sp Cx : MSSA SP Rx AFBx 3 : Neg ( 3rd from 05/26 not in EMR ) T Spot : neg Crytpo and blastomycosis: JOHANNA Neg histo : did not resulted due lab issues CT: Extensive interstitial and airspace parenchymal disease, and honeycomb appearance of much of the lower lobe and right middle lobe interstitial component, HIV negative Chronic diarrhea resolved, stool Cx : neg ? pancreatic insufficiency due to chronic alcohol abuse Elevated ESR , CRP and RF JOHANNA : neg probable non ID ch lung disease Anemia and leukopenia PLAN: monitor pt off of AB Rx 06/05 SP Ancef d# 10 / 10 05/30 SP Zithromax d# 5 / 5 06/01 SP ( refusing) Flagyl d# 46 05/27 SP vancomycin, cefepime d# 5, Monitor CBC Monitor BMP. Stool for ova and parasite. mycobacterium TB PCR Serology (coccidio , reordered ) GI following for the patient's chronic diarrhea. monitor Xcray : P possilbe lung Bx and Bronch as per Pul Rec hem eval for possible bone marrow Bx CT of Abd /P : P Subjective Allergies: Coded Allergies: No Known Allergies (Unverified , 05/23/17) Subjective afebrile Objective Vital Signs Last 24 Hour Vital Signs Date Time Temp Pulse Resp B/P (MAP) Pulse Ox O2 Delivery O2 Flow Rate FiO2 06/06/17 08:21 97.4 65 20 129/86 95 06/06/17 08:05 70 16 98 Venturi Mask 8.0 40 06/06/17 07:56 99 Venturi Mask 8.0 40 06/06/17 07:56 70 18 98 Venturi Mask 8.0 40 06/06/17 07:56 Venturi Mask 8.0 40 06/06/17 04:00 97.9 70 18 125/78 100 06/06/17 02:07 60 16 98 Venturi Mask 8.0 40 06/06/17 01:59 58 18 97 Venturi Mask 8.0 40 06/06/17 00:00 Venturi Mask 06/05/17 20:24 70 16 98 Venturi Mask 8.0 40 06/05/17 20:16 67 20 94 Venturi Mask 8.0 40 06/05/17 20:15 Venturi Mask 8.0 40 06/05/17 20:14 94 Venturi Mask 8.0 40 06/05/17 20:00 Venturi Mask 06/05/17 20:00 97.7 84 20 129/77 93 06/05/17 16:15 97.2 69 21 122/80 99 Room Air 06/05/17 13:00 78 20 98 Venturi Mask 6.0 35 06/05/17 12:53 74 18 98 Venturi Mask 6.0 35 06/05/17 12:15 97.1 74 19 131/69 99 Room Air Height (Feet): 5 Height (Inches): 10.00 Weight (Pounds): 90 Respiratory/Chest: normal breath sounds Cardiovascular: regular rhythm Abdomen: no organomegaly Laboratory Tests Test 06/06/17 06:32 White Blood Count 3.3 K/UL (4.8-10.8) L Red Blood Count 3.29 M/UL (4.70-6.10) L Hemoglobin 9.8 G/DL (14.2-18.0) L Hematocrit 30.8 % (42.0-52.0) L Mean Corpuscular Volume 93 FL (80-99) Mean Corpuscular Hemoglobin 29.8 PG (27.0-31.0) Mean Corpuscular Hemoglobin Concent 31.8 G/DL (32.0-36.0) L Red Cell Distribution Width 13.3 % (11.6-14.8) Platelet Count 163 K/UL (150-450) Mean Platelet Volume 9.0 FL (6.5-10.1) Neutrophils (%) (Auto) % (45.0-75.0) Lymphocytes (%) (Auto) % (20.0-45.0) Monocytes (%) (Auto) % (1.0-10.0) Eosinophils (%) (Auto) % (0.0-3.0) Basophils (%) (Auto) % (0.0-2.0) Neutrophils % (Manual) Pending Lymphocytes % (Manual) Pending Platelet Estimate Pending Platelet Morphology Pending Sodium Level 137 MMOL/L (136-145) Potassium Level 3.5 MMOL/L (3.5-5.1) Chloride Level 97 MMOL/L (98-107) L Carbon Dioxide Level 39 MMOL/L (21-32) H Anion Gap -1 mmol/L (5-15) L Blood Urea Nitrogen 20 mg/dL (7-18) H Creatinine 0.7 MG/DL (0.55-1.30) Estimat Glomerular Filtration Rate > 60 mL/min (>60) Glucose Level 155 MG/DL (74-106) H Calcium Level 7.6 MG/DL (8.5-10.1) L Total Bilirubin 0.2 MG/DL (0.2-1.0) Aspartate Amino Transf (AST/SGOT) 77 U/L (15-37) H Alanine Aminotransferase (ALT/SGPT) 29 U/L (12-78) Alkaline Phosphatase 276 U/L (46-116) H Total Protein 8.5 G/DL (6.4-8.2) H Albumin 1.1 G/DL (3.4-5.0) L Globulin 7.4 g/dL Albumin/Globulin Ratio 0.1 (1.0-2.7) L Current Medications Medications (Trade) Dose Ordered Sig/Anna Route PRN Reason Start Time Stop Time Status Last Admin Dose Admin Acetaminophen (Tylenol) 650 mg Q4H PRN ORAL T>100.5 05/23/17 12:15 06/22/17 12:14 05/29/17 21:16 Albuterol/ Ipratropium (Albuterol/ Ipratropium) 3 ml Q4H PRN HHN Shortness of Breath 06/02/17 15:00 06/07/17 14:59 Albuterol/ Ipratropium (Albuterol/ Ipratropium) 3 ml Q6HRT HHN 06/02/17 19:00 06/07/17 18:59 06/06/17 07:56 Dextrose (Dextrose 50%) STAT PRN IV Hypoglycemia 05/23/17 12:15 06/22/17 12:14 Divalproex Sodium (Depakote ER) 1,000 mg EVERY 12 HOURS ORAL 05/29/17 09:00 06/28/17 08:59 06/03/17 22:07 Fluoxetine HCl (PROzac) 20 mg DAILY ORAL 05/27/17 09:00 06/26/17 08:59 06/06/17 08:35 Folic Acid (Folate) 1 mg DAILY ORAL 05/27/17 09:00 06/26/17 08:59 06/04/17 10:08 Heparin Sodium (Porcine) (Heparin 5000 units/ml) 5,000 units EVERY 12 HOURS SUBQ 05/23/17 21:00 06/22/17 20:59 06/05/17 09:58 Loperamide HCl (Imodium) 2 mg Q4H PRN ORAL Diarrhea 05/29/17 10:30 06/28/17 10:29 05/29/17 13:53 Methylprednisolone Sodium Succinate (Solu-MEDROL) 30 mg EVERY 12 HOURS IVP 06/06/17 21:00 07/06/17 20:59 Multivitamins (Multivitamins) 1 tab DAILY ORAL 05/31/17 09:00 06/30/17 08:59 06/04/17 10:08 Ondansetron HCl (Zofran) 4 mg Q6H PRN IVP Nausea & Vomiting 05/23/17 12:15 06/22/17 12:14 Polyethylene Glycol (Miralax) 17 gm DAILYPRN PRN ORAL Constipation 05/23/17 12:15 06/22/17 12:14 Ranitidine HCl (Zantac) 150 mg BEDTIME ORAL 05/26/17 21:00 06/25/17 20:59 06/05/17 20:53 Thiamine HCl (Vitamin B1) 100 mg DAILY ORAL 05/31/17 09:00 06/30/17 08:59 06/03/17 10:09 Zolpidem Tartrate (Ambien) 5 mg HSPRN PRN ORAL Insomnia 06/02/17 19:15 06/09/17 19:14 AMARIS BRIGGS M.D. Jun 06, 2017 10:31
[2017-06-06 11:38] VITALS: BP 132/68
--- NOTE | 2017-06-06 12:12 | Diagnostic Imaging Report ---
Indication: Shortness of breath Technique: XRAY Chest 1v Comparison: 06/05/2017 Findings: Extensive interstitial and patchy bilateral airspace opacities persists, without significant interval change from the prior exam. No large pleural effusion. No definite pneumothorax. Heart size and mediastinal contours are stable. Osseous structures demonstrate no acute abnormality. Impression: No significant interval change in appearance the heart and lungs compared to one day prior.
[2017-06-06 16:03] VITALS: BP 108/72
[2017-06-06 20:00] VITALS: BP 122/74
[2017-06-06] MEDS ORDERED: Solu-MEDROL 40mg Inj IVP SCH (21:00)
[2017-06-06] MEDS ORDERED: LORazepam 1mg tab ORAL PRN (23:00)
[2017-06-07] VITALS: BP 119/71
[2017-06-07] MEDS: Albuterol/Ipratropium 3ml neb HHN SCH ×3 (01:00→12:46)
[2017-06-07 04:21] VITALS: BP 115/68
[2017-06-07 08:00] VITALS: BP 124/78
--- NOTE | 2017-06-07 09:42 | General Progress Note ---
Assessment/Plan Problem List: (1) Interstitial lung disease ICD Codes: J84.9 - Interstitial pulmonary disease, unspecified SNOMED: 005775122 (2) Diarrhea ICD Codes: R19.7 - Diarrhea, unspecified SNOMED: 94254375 Qualifiers: Qualified Codes: R19.7 - Diarrhea, unspecified (3) Protein calorie malnutrition ICD Codes: E46 - Unspecified protein-calorie malnutrition SNOMED: 680830126 Qualifiers: Qualified Codes: E44.0 - Moderate protein-calorie malnutrition (4) Atypical pneumonia ICD Codes: J18.9 - Pneumonia, unspecified organism SNOMED: 006555207 (5) Elevated rheumatoid factor ICD Codes: R76.8 - Other specified abnormal immunological findings in serum SNOMED: 794790420 (6) Generalized weakness ICD Codes: R53.1 - Weakness SNOMED: 18476936 (7) Anemia ICD Codes: D64.9 - Anemia, unspecified SNOMED: 771613784 Assessment/Plan cdiff negative iron levels unremarkable HIV negative airborne r/o TB KUB r/o chronic pancreatitis >> unremarkable OB stool r/o GI bleed >> negative Tissue Transglutaminase IgA r/o celiac >> negative fu pulmonary recs monitor H&H, prn transfusions Imodium prn, Lomotil if diarrhea persists ppi folate PO H2B fu labs fu CT Subjective ROS Limited/Unobtainable: Yes Allergies: Coded Allergies: No Known Allergies (Unverified , 05/23/17) Subjective no event over night pending IV placement for CT Objective Last 24 Hour Vital Signs Date Time Temp Pulse Resp B/P (MAP) Pulse Ox O2 Delivery O2 Flow Rate FiO2 06/07/17 08:18 72 20 10 Nasal Cannula 4.0 06/07/17 08:08 110 22 92 Nasal Cannula 4.0 06/07/17 08:06 92 Nasal Cannula 4.0 06/07/17 08:06 Nasal Cannula 4.0 06/07/17 08:00 97.0 106 22 124/78 88 Nasal Cannula 3.0 06/07/17 04:21 97.7 70 18 115/68 93 06/07/17 04:00 Nasal Cannula 2.0 06/07/17 00:00 97.5 78 16 119/71 93 06/07/17 00:00 Nasal Cannula 2.0 06/06/17 20:44 71 20 96 Nasal Cannula 2.0 28 06/06/17 20:39 28 06/06/17 20:38 66 20 95 Nasal Cannula 2.0 28 06/06/17 20:36 Nasal Cannula 2.0 06/06/17 20:35 95 Nasal Cannula 2.0 28 06/06/17 20:00 97.0 74 18 122/74 92 06/06/17 20:00 Nasal Cannula 2.0 06/06/17 16:03 97.7 93 20 108/72 94 06/06/17 13:31 72 16 95 Nasal Cannula 2.0 28 06/06/17 13:21 70 18 98 Nasal Cannula 2.0 28 06/06/17 11:38 98.0 54 20 132/68 95 Intake and Output 06/06/17 06/07/17 19:00 07:00 Intake Total 720 ml Output Total 200 ml 1000 ml Balance 520 ml -1000 ml Intake Oral 720 ml Output Urine Total 200 ml 1000 ml # Voids 2 Height (Feet): 5 Height (Inches): 10.00 Weight (Pounds): 90 General Appearance: alert EENT: normal ENT inspection Neck: supple Cardiovascular: normal rate Respiratory/Chest: decreased breath sounds Abdomen: normal bowel sounds, non tender, soft Extremities: non-tender SAIMA RUBIO Jun 07, 2017 09:42
[2017-06-07] MEDS: Heparin 5000 units/ml inj SUBQ SCH ×2 (10:00→21:13)
[2017-06-07] MEDS: Thiamine 100mg tab ORAL SCH (10:00)
[2017-06-07] MEDS: Depakote ER 500mg tab ORAL SCH ×2 (10:00→21:00)
[2017-06-07 12:00] VITALS: BP 119/75
--- NOTE | 2017-06-07 15:42 | Pulmonology Progress Note ---
Assessment/Plan Problems: (1) Acute hypoxemic respiratory failure (2) Interstitial lung disease (3) Atypical pneumonia (4) Generalized weakness (5) Anemia (6) Protein calorie malnutrition (7) Diarrhea (8) Elevated rheumatoid factor Assessment/Plan -FFWU --> BCx x 2, UA & UCX, sputum Cx, CXR -Repeat HIV, T cell panel & immunoglobulins still pending -F/U CT A/P for underlying malignancy, patient's cachexia not entirely clear -Will D/W Dr. Goodwin, if clinically and radiographically not improved will need a lung biopsy -Refused SM, start Pred 60 and taper -PRN Lasix -Optimize pulmonary hygiene/mobilize as tolerated -Titrate down FiO2 to keep SaO2 > 90% -RTC and PRN HHN's -Off Abx per ID -F/U cardiology recs -DVT Px: Hep SQ -Monitor volumes Subjective Allergies: Coded Allergies: No Known Allergies (Unverified , 05/23/17) Subjective Tm 100.8, VSS, Now on NC 2-4 L, oxygenation improved Going for CT A/P less cough, less SOB, no F/C, no diarrhea Not getting OOB refusing interventions including PT Objective Last 24 Hour Vital Signs Date Time Temp Pulse Resp B/P (MAP) Pulse Ox O2 Delivery O2 Flow Rate FiO2 06/07/17 12:56 88 20 98 Nasal Cannula 4.0 06/07/17 12:46 86 20 96 Nasal Cannula 4.0 06/07/17 12:00 100.8 107 20 119/75 94 Nasal Cannula 3.0 06/07/17 08:18 72 20 100 Nasal Cannula 4.0 06/07/17 08:08 110 22 92 Nasal Cannula 4.0 06/07/17 08:06 92 Nasal Cannula 4.0 06/07/17 08:06 Nasal Cannula 4.0 06/07/17 08:00 97.0 106 22 124/78 88 Nasal Cannula 3.0 06/07/17 04:21 97.7 70 18 115/68 93 06/07/17 04:00 Nasal Cannula 2.0 06/07/17 00:00 97.5 78 16 119/71 93 06/07/17 00:00 Nasal Cannula 2.0 06/06/17 20:44 71 20 96 Nasal Cannula 2.0 06/06/17 20:39 28 06/06/17 20:38 66 20 95 Nasal Cannula 2.0 28 06/06/17 20:36 Nasal Cannula 2.0 28 06/06/17 20:35 95 Nasal Cannula 2.0 28 06/06/17 20:00 97.0 74 18 122/74 92 06/06/17 20:00 Nasal Cannula 2.0 06/06/17 16:03 97.7 93 20 108/72 94 Intake and Output 06/06/17 06/07/17 19:00 07:00 Intake Total 720 ml Output Total 200 ml 1000 ml Balance 520 ml -1000 ml Intake Oral 720 ml Output Urine Total 200 ml 1000 ml # Voids 2 General Appearance: no acute distress, cachetic HEENT: normocephalic, atraumatic, mucous membranes moist Respiratory/Chest: chest wall non-tender, lungs clear - but distant Cardiovascular: normal peripheral pulses, normal rate, regular rhythm Abdomen: normal bowel sounds, soft, non tender, no organomegaly Extremities: no cyanosis, no clubbing, no edema Current Medications Medications (Trade) Dose Ordered Sig/Anna Route PRN Reason Start Time Stop Time Status Last Admin Dose Admin Acetaminophen (Tylenol) 650 mg Q4H PRN ORAL T>100.5 05/23/17 12:15 06/22/17 12:14 05/29/17 21:16 Albuterol/ Ipratropium (Albuterol/ Ipratropium) 3 ml Q6HRT HHN 06/02/17 19:00 06/07/17 18:59 06/07/17 12:46 Dextrose (Dextrose 50%) STAT PRN IV Hypoglycemia 05/23/17 12:15 06/22/17 12:14 Divalproex Sodium (Depakote ER) 1,000 mg EVERY 12 HOURS ORAL 05/29/17 09:00 06/28/17 08:59 06/03/17 22:07 Fluoxetine HCl (PROzac) 20 mg DAILY ORAL 05/27/17 09:00 06/26/17 08:59 06/06/17 08:35 Folic Acid (Folate) 1 mg DAILY ORAL 05/27/17 09:00 06/26/17 08:59 06/04/17 10:08 Heparin Sodium (Porcine) (Heparin 5000 units/ml) 5,000 units EVERY 12 HOURS SUBQ 05/23/17 21:00 06/22/17 20:59 06/05/17 09:58 Loperamide HCl (Imodium) 2 mg Q4H PRN ORAL Diarrhea 05/29/17 10:30 06/28/17 10:29 05/29/17 13:53 Multivitamins (Multivitamins) 1 tab DAILY ORAL 05/31/17 09:00 06/30/17 08:59 06/04/17 10:08 Ondansetron HCl (Zofran) 4 mg Q6H PRN IVP Nausea & Vomiting 05/23/17 12:15 06/22/17 12:14 Polyethylene Glycol (Miralax) 17 gm DAILYPRN PRN ORAL Constipation 05/23/17 12:15 06/22/17 12:14 Prednisone (predniSONE) 60 mg DAILY ORAL 06/06/17 21:00 07/06/17 20:59 06/06/17 21:14 Ranitidine HCl (Zantac) 150 mg BEDTIME ORAL 05/26/17 21:00 06/25/17 20:59 06/06/17 21:13 Thiamine HCl (Vitamin B1) 100 mg DAILY ORAL 05/31/17 09:00 06/30/17 08:59 06/03/17 10:09 Zolpidem Tartrate (Ambien) 5 mg HSPRN PRN ORAL Insomnia 06/02/17 19:15 06/09/17 19:14 ALONA DAWKINS M.D. Jun 07, 2017 15:42
[2017-06-07 16:00] VITALS: BP 121/77
[2017-06-07 18:16] LABS: APPEARANCE,URINE CLEAR; BILIRUBIN, URINE NEGATIVE (NEGATIVE); GLUCOSE, URINE (UA) NEGATIVE (NEGATIVE); KETONES,URINE NEGATIVE (NEGATIVE); LEUKOCYTE ESTERASE ,URINE 1+ (NEGATIVE); NITRITE,URINE NEGATIVE (NEGATIVE); PH,URINE 7 (4.5-8.0); PROTEIN,URINE 2+ (NEGATIVE); UROBILINOGEN,URINE 1 MG/DL (0.0-1.0)
[2017-06-07 18:30] LABS: COLOR,URINE YELLOW
[2017-06-07 20:00] VITALS: BP 119/74
--- NOTE | 2017-06-07 20:38 | General Progress Note ---
Assessment/Plan Assessment/Plan ASSESSMENT/PLAN Anemia, watch counts, transfuse if hgb below 7 MSSA PNA Interstitial lung disease acute hypoxemic RF requiring VM severe protein calorie malnutrition diarrhea, better alcohol dependence depression Subjective Allergies: Coded Allergies: No Known Allergies (Unverified , 05/23/17) All Systems: reviewed and negative except above Subjective NAD Objective Last 24 Hour Vital Signs Date Time Temp Pulse Resp B/P (MAP) Pulse Ox O2 Delivery O2 Flow Rate FiO2 06/07/17 19:54 Nasal Cannula 4.0 36 06/07/17 19:54 97 Nasal Cannula 4.0 36 06/07/17 16:00 98.7 93 20 121/77 97 06/07/17 12:56 88 20 98 Nasal Cannula 4.0 06/07/17 12:46 86 20 96 Nasal Cannula 4.0 06/07/17 12:00 100.8 107 20 119/75 94 Nasal Cannula 3.0 06/07/17 08:18 72 20 100 Nasal Cannula 4.0 06/07/17 08:08 110 22 92 Nasal Cannula 4.0 06/07/17 08:06 92 Nasal Cannula 4.0 06/07/17 08:06 Nasal Cannula 4.0 06/07/17 08:00 97.0 106 22 124/78 88 Nasal Cannula 3.0 06/07/17 04:21 97.7 70 18 115/68 93 06/07/17 04:00 Nasal Cannula 2.0 06/07/17 00:00 97.5 78 16 119/71 93 06/07/17 00:00 Nasal Cannula 2.0 06/06/17 20:44 71 20 96 Nasal Cannula 2.0 28 06/06/17 20:39 28 06/06/17 20:38 66 20 95 Nasal Cannula 2.0 28 Intake and Output 06/06/17 06/07/17 19:00 07:00 Intake Total 720 ml Output Total 200 ml 1000 ml Balance 520 ml -1000 ml Intake Oral 720 ml Output Urine Total 200 ml 1000 ml # Voids 2 Laboratory Tests 06/07/17 17:36: Urine Color Yellow, Urine Appearance Clear, Urine pH 7, Urine Specific [place] 1.005, Urine Protein 2+H, Urine Glucose (UA) Negative, Urine Ketones Negative, Urine Occult Blood 1+H, Urine Nitrite Negative, Urine Bilirubin Negative, Urine Urobilinogen 1H, Urine Leukocyte Esterase 1+H, Urine RBC 2-4H, Urine WBC 2-4, Urine Squamous Epithelial Cells Few, Urine Bacteria Few Height (Feet): 5 Height (Inches): 10.00 Weight (Pounds): 90 General Appearance: no apparent distress EENT: normal ENT inspection Neck: normal alignment Cardiovascular: normal peripheral pulses Edema: mild edema Neurologic: conference concierge II-XII 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 Nikhil Woodward Jun 07, 2017 20:38
[2017-06-08] VITALS: BP 125/74
--- NOTE | 2017-06-08 01:00 | Consultation ---
DATE OF CONSULTATION: 06/06/2017 NOTE: POOR AUDIO QUALITY HEMATOLOGY/ONCOLOGY CONSULTATION CONSULTING PHYSICIAN: Nikhil Woodward M.D. REQUESTING PHYSICIAN: Kobe Braun M.D. REASON FOR CONSULTATION: Evaluation of anemia and leukopenia. IDENTIFYING DATA: Dear Dr. Braun: The patient is a pleasant 41-year-old male with no significant medical history, at this time presents to the hospital with complaints of diarrhea over the last several weeks with 2-pound weight loss apparently, currently in isolation in order to rule out TB. The patient was seen by ID Service. The patient was noted to have pneumonia, to rule out less likely. AFB negative x2. Cryptococcus, blastomycosis negative. CT scan shows intensive interstitial airspace parenchymal disease, honeycomb pattern, diagnosis still pending. HIV negative. Remains leukopenic. Hematology Service was consulted in addition to Dr. Braun following up with the patient for Internal Medicine. Also history of alcohol abuse. PAST MEDICAL HISTORY: None noted. PAST SURGICAL HISTORY: None noted. MEDICATIONS: Vancomycin and cefepime. Reviewed. ALLERGIES: None. FAMILY HISTORY: Noncontributory. SOCIAL HISTORY: Smoking cigarettes and marijuana. The patient used to drink alcohol heavily, but quit 2 months ago. Lives by himself. REVIEW OF SYSTEMS: A 12-point review of systems is otherwise negative. PHYSICAL EXAMINATION: GENERAL: No acute distress. VITAL SIGNS: Reviewed. LUNGS: Decreased breath sounds. CARDIOVASCULAR: Regular rate. No S3 or S4. ABDOMEN: Soft, nontender, and nondistended. EXTREMITIES: A 1+ edema. LABORATORY DATA: WBC of 3.9, hemoglobin 9.8, hematocrit 31, and platelets 163,000. BUN of 20 and creatinine 0.7. INR is 0.3. ASSESSMENT AND RECOMMENDATION: 1. Leukopenia splenomegaly. Obtain ultrasound of the abdomen. Obtain hepatitis panel. 2. Anemia of chronic disease. Obtain anemia workup including ferritin. The patient with no evidence of hemolysis, however, ALT to AST pattern to perform. 3. Anemia secondary to folic acid deficiency. The patient is currently on multivitamin and folic acid. 4. Interstitial lung disease, potentially atypical pneumonia versus fungal infection. Continue to closely monitor the patient. 5. fracture. 6. Atypical pneumonia. 7. Diarrhea being Clostridium difficile negative. Continue Imodium. I appreciate the consultation. Nikhil Woodward M.D. DR: VERÓNICA JOB#: [id number] CC:
[2017-06-08 04:00] VITALS: BP 121/72
[2017-06-08 08:14] VITALS: BP 109/68
[2017-06-08] MEDS: Heparin 5000 units/ml inj SUBQ SCH ×2 (09:00→21:00)
[2017-06-08] MEDS: Depakote ER 500mg tab ORAL SCH ×2 (09:00→21:00)
[2017-06-08] MEDS: Thiamine 100mg tab ORAL SCH (09:00)
--- NOTE | 2017-06-08 09:02 | Diagnostic Imaging Report ---
Indication: Reason For Exam: ABD PAIN Technique: CT scan of the abdomen and pelvis was performed from the diaphragms to the symphysis pubis with intravenous contrast material and oral contrast material. Biphasic liver scanning was employed. 5 mm sections were generated. Axial, coronal, and sagittal images are presented. Dose: Total Dose Length Product - DLP [address] Dose Index - CTDIvol(s) 8.43 mGy. Automated exposure control was utilized for dose reduction. Comparison: None Findings: There is airspace disease in both lower lobes as well as in a portion of the visualized right middle lobe. The liver is unremarkable. The gallbladder is collapsed. The spleen is normal. Pancreas is unremarkable. Adrenal glands are normal. Left kidney demonstrates a low density area in the upper pole centrally. The kidneys are otherwise normal. Aorta is calcified. Retroperitoneum is free of adenopathy. Large amount of fecal material is noted in the colon. The appendix is normal. The prostate and bladder are unremarkable. Impression: Large amount of fecal material in the rectum. This may represent fecal impaction. Bilateral pulmonary alveolar infiltrates consistent with pneumonia. Small left renal parapelvic cyst versus dilated calyx. Atherosclerotic change. Appendix normal. The CT scanner at [facility] is accredited by the [employer] and the scans are performed using protocols designed to limit radiation exposure to as low as reasonably achievable to attain images of sufficient resolution adequate for diagnostic evaluation.
--- NOTE | 2017-06-08 10:30 | Diagnostic Imaging Report ---
Indication: Chest pain Technique: XRAY Chest 1v. Comparison: 06/06/2017 Findings: The cardiomediastinal silhouette is unchanged. Extensive bilateral interstitial and airspace infiltrates are again noted, unchanged. Impression: No significant change from prior examination.
--- NOTE | 2017-06-08 10:46 | General Progress Note ---
Assessment/Plan Problem List: (1) Interstitial lung disease ICD Codes: J84.9 - Interstitial pulmonary disease, unspecified SNOMED: 591524548 (2) Diarrhea ICD Codes: R19.7 - Diarrhea, unspecified SNOMED: 29846698 Qualifiers: Qualified Codes: R19.7 - Diarrhea, unspecified (3) Protein calorie malnutrition ICD Codes: E46 - Unspecified protein-calorie malnutrition SNOMED: 722593251 Qualifiers: Qualified Codes: E44.0 - Moderate protein-calorie malnutrition (4) Atypical pneumonia ICD Codes: J18.9 - Pneumonia, unspecified organism SNOMED: 621942103 (5) Elevated rheumatoid factor ICD Codes: R76.8 - Other specified abnormal immunological findings in serum SNOMED: 670717626 (6) Generalized weakness ICD Codes: R53.1 - Weakness SNOMED: 84580640 (7) Anemia ICD Codes: D64.9 - Anemia, unspecified SNOMED: 933423797 (8) Fecal impaction ICD Codes: K56.41 - Fecal impaction SNOMED: 30741839 Assessment/Plan cdiff negative iron levels unremarkable HIV negative airborne r/o TB KUB r/o chronic pancreatitis >> unremarkable OB stool r/o GI bleed >> negative Tissue Transglutaminase IgA r/o celiac >> negative fu pulmonary recs monitor H&H, prn transfusions ppi folate PO H2B fu labs fu CT>>> fecal impaction>>> bowel regimen Subjective ROS Limited/Unobtainable: Yes Allergies: Coded Allergies: No Known Allergies (Unverified , 05/23/17) Subjective no event over night Objective Last 24 Hour Vital Signs Date Time Temp Pulse Resp B/P (MAP) Pulse Ox O2 Delivery O2 Flow Rate FiO2 06/08/17 08:14 97.3 77 20 109/68 96 06/08/17 08:01 Nasal Cannula 4.0 36 06/08/17 08:00 98 Nasal Cannula 4.0 36 06/08/17 04:00 98.2 20 20 121/72 96 06/08/17 04:00 96 Nasal Cannula 4.0 06/08/17 00:00 99.5 77 21 125/74 96 06/08/17 00:00 96 Nasal Cannula 4.0 06/07/17 20:00 93 Nasal Cannula 4.0 06/07/17 20:00 97.9 75 18 119/74 93 06/07/17 19:54 Nasal Cannula 4.0 36 06/07/17 19:54 97 Nasal Cannula 4.0 36 06/07/17 16:00 98.7 93 20 121/77 97 06/07/17 12:56 88 20 98 Nasal Cannula 4.0 06/07/17 12:46 86 20 96 Nasal Cannula 4.0 06/07/17 12:00 100.8 107 20 119/75 94 Nasal Cannula 3.0 Intake and Output 06/07/17 06/08/17 19:00 07:00 Intake Total 800 ml Output Total 800 ml Balance 800 ml -800 ml Intake Oral 800 ml Output Urine Total 800 ml # Voids 3 # Bowel Movements 2 1 Laboratory Tests 06/07/17 17:36: Urine Color Yellow, Urine Appearance Clear, Urine pH 7, Urine Specific [place] 1.005, Urine Protein 2+H, Urine Glucose (UA) Negative, Urine Ketones Negative, Urine Occult Blood 1+H, Urine Nitrite Negative, Urine Bilirubin Negative, Urine Urobilinogen 1H, Urine Leukocyte Esterase 1+H, Urine RBC 2-4H, Urine WBC 2-4, Urine Squamous Epithelial Cells Few, Urine Bacteria Few 06/08/17 00:00: HIV-1 Antibody [Pending], HIV-2 Antibody [Pending] 06/08/17 04:00: Arterial Blood pH 7.516H, Arterial Blood Partial Pressure CO2 47.3H, Arterial Blood Partial Pressure O2 71.9L, Arterial Blood HCO3 37.4H, Arterial Blood Oxygen Saturation 94.0, Arterial Blood Base Excess 13.1, Michael Test Positive 06/08/17 05:00: HIV (1&2) Antibody Rapid Preliminary positiveH Height (Feet): 5 Height (Inches): 10.00 Weight (Pounds): 90 General Appearance: no apparent distress EENT: normal ENT inspection Neck: supple Cardiovascular: normal rate Respiratory/Chest: decreased breath sounds Abdomen: normal bowel sounds, non tender, soft Extremities: non-tender SAIMA RUBIO Jun 08, 2017 10:46
[2017-06-08] MEDS ORDERED: Fleet's Mineral Oil Enema RECTAL ONE (11:00)
--- NOTE | 2017-06-08 11:28 | Infectious Diseases Prog Note ---
Assessment/Plan Assessment/Plan ASSESSMENT: The patient is a 41-year-old male with Weight loss Fever , SP low grade x 1 Pneumonia. . Sp Cx : MSSA SP Rx CT of Abd /Bilateral pulmonary alveolar infiltrates consistent with pneumonia. AFBx 3 : Neg ( 3rd from 05/26 not in EMR ) now AFB Cx 05/25 : +ve growth ( m/l atypical Mycobacterium ? real vs contaminant) MTB PCR : Neg T Spot : neg Crytpo and blastomycosis: JOHANNA Neg histo : did not resulted due lab issues CT: Extensive interstitial and airspace parenchymal disease, and honeycomb appearance of much of the lower lobe and right middle lobe interstitial component, ? HIV: first test negative repeat ( prelim +ve ) Chronic diarrhea resolved, Stool for ova and parasite ( ? sent ) stool Cx : neg ? pancreatic insufficiency due to chronic alcohol abuse Elevated ESR , CRP and RF JOHANNA : neg probable non ID ch lung disease Anemia and leukopenia PLAN: pt has improved overall , CT improved , but if pt worsen may start pt on Bactrim for possible PCP monitor pt off of AB Rx 06/05 SP Ancef d# 10 / 10 05/30 SP Zithromax d# 5 / 5 06/01 SP ( refusing) Flagyl d# 46 05/27 SP vancomycin, cefepime d# 5, Monitor CBC Monitor BMP. Serology (coccidio , reordered ) GI following for the patient's chronic diarrhea. monitor Xcray : P possilbe lung Bx and Bronch as per Pul hem following , ( pt may need bone marrow ) HIV PCR CD4 AFB DNA probe ( MAC , TB ) airborne iso Fungal and AFB blood Cx Subjective Constitutional: Denies: no symptoms, fever, chills, fatigue, anorexia, drenching sweats, other Allergies: Coded Allergies: No Known Allergies (Unverified , 05/23/17) Subjective afebrile Objective Vital Signs Last 24 Hour Vital Signs Date Time Temp Pulse Resp B/P (MAP) Pulse Ox O2 Delivery O2 Flow Rate FiO2 06/08/17 08:14 97.3 77 20 109/68 96 06/08/17 08:01 Nasal Cannula 4.0 36 06/08/17 08:00 98 Nasal Cannula 4.0 36 06/08/17 04:00 98.2 20 20 121/72 96 06/08/17 04:00 96 Nasal Cannula 4.0 06/08/17 00:00 99.5 77 21 125/74 96 06/08/17 00:00 96 Nasal Cannula 4.0 06/07/17 20:00 93 Nasal Cannula 4.0 06/07/17 20:00 97.9 75 18 119/74 93 06/07/17 19:54 Nasal Cannula 4.0 36 06/07/17 19:54 97 Nasal Cannula 4.0 36 06/07/17 16:00 98.7 93 20 121/77 97 06/07/17 12:56 88 20 98 Nasal Cannula 4.0 06/07/17 12:46 86 20 96 Nasal Cannula 4.0 06/07/17 12:00 100.8 107 20 119/75 94 Nasal Cannula 3.0 Height (Feet): 5 Height (Inches): 10.00 Weight (Pounds): 90 HEENT: atraumatic Respiratory/Chest: normal breath sounds Cardiovascular: normal rate Abdomen: no organomegaly Laboratory Tests Test 06/07/17 17:36 06/08/17 00:00 06/08/17 04:00 06/08/17 05:00 Urine Color Yellow Urine Appearance Clear Urine pH 7 (4.5-8.0) Urine Specific [place] 1.005 (1.005-1.035) Urine Protein 2+ (NEGATIVE) H Urine Glucose (UA) Negative (NEGATIVE) Urine Ketones Negative (NEGATIVE) Urine Occult Blood 1+ (NEGATIVE) H Urine Nitrite Negative (NEGATIVE) Urine Bilirubin Negative (NEGATIVE) Urine Urobilinogen 1 MG/DL (0.0-1.0) H Urine Leukocyte Esterase 1+ (NEGATIVE) H Urine RBC 2-4 /HPF (0 - 0) H Urine WBC 2-4 /HPF (0 - 0) Urine Squamous Epithelial Cells Few /LPF (NONE/OCC) Urine Bacteria Few /HPF (NONE) HIV-1 Antibody Pending HIV-2 Antibody Pending Arterial Blood pH 7.516 (7.350-7.450) Arterial Blood Partial Pressure CO2 47.3 mmHg (35.0-45.0) H Arterial Blood Partial Pressure O2 71.9 mmHg (75.0-100.0) L Arterial Blood HCO3 37.4 mmol/L (22.0-26.0) H Arterial Blood Oxygen Saturation 94.0 % (92.0-98.0) Arterial Blood Base Excess 13.1 Michael Test Positive HIV (1&2) Antibody Rapid Preliminary positive Current Medications Medications (Trade) Dose Ordered Sig/Anna Route PRN Reason Start Time Stop Time Status Last Admin Dose Admin Acetaminophen (Tylenol) 650 mg Q4H PRN ORAL T>100.5 05/23/17 12:15 06/22/17 12:14 05/29/17 21:16 Dextrose (Dextrose 50%) STAT PRN IV Hypoglycemia 05/23/17 12:15 06/22/17 12:14 Divalproex Sodium (Depakote ER) 1,000 mg EVERY 12 HOURS ORAL 05/29/17 09:00 06/28/17 08:59 06/03/17 22:07 Docusate Sodium (Colace) 100 mg TWICE A DAY ORAL 06/08/17 18:00 07/08/17 17:59 Fluoxetine HCl (PROzac) 20 mg DAILY ORAL 05/27/17 09:00 06/26/17 08:59 06/06/17 08:35 Folic Acid (Folate) 1 mg DAILY ORAL 05/27/17 09:00 06/26/17 08:59 06/04/17 10:08 Heparin Sodium (Porcine) (Heparin 5000 units/ml) 5,000 units EVERY 12 HOURS SUBQ 05/23/17 21:00 06/22/17 20:59 06/07/17 21:13 Lactulose (Cephulac) 10 gm THREE TIMES A DAY ORAL 06/08/17 13:00 07/08/17 12:59 Multivitamins (Multivitamins) 1 tab DAILY ORAL 05/31/17 09:00 06/30/17 08:59 06/04/17 10:08 Ondansetron HCl (Zofran) 4 mg Q6H PRN IVP Nausea & Vomiting 05/23/17 12:15 06/22/17 12:14 Polyethylene Glycol (Miralax) 17 gm DAILYPRN PRN ORAL Constipation 05/23/17 12:15 06/22/17 12:14 Prednisone (predniSONE) 60 mg DAILY ORAL 06/06/17 21:00 07/06/17 20:59 06/08/17 09:14 Ranitidine HCl (Zantac) 150 mg BEDTIME ORAL 05/26/17 21:00 06/25/17 20:59 06/06/17 21:13 Thiamine HCl (Vitamin B1) 100 mg DAILY ORAL 05/31/17 09:00 06/30/17 08:59 06/03/17 10:09 Zolpidem Tartrate (Ambien) 5 mg HSPRN PRN ORAL Insomnia 06/02/17 19:15 06/09/17 19:14 AMARIS BRIGGS M.D. Jun 08, 2017 11:28
--- NOTE | 2017-06-08 12:07 | Pulmonology Progress Note ---
Assessment/Plan Problems: (1) Acute hypoxemic respiratory failure (2) Interstitial lung disease (3) Atypical pneumonia (4) Generalized weakness (5) Anemia (6) Protein calorie malnutrition (7) Diarrhea (8) Elevated rheumatoid factor (9) HIV antibody positive Assessment & Plan: Initial rapid negative, repeat rapid "prelim positive" Assessment/Plan -D/W ID, Rapid HIV initially neg now prelim positive, will F/U PCR to confirm + CD4 count -F/U final AFB, ? JERRY -F/U PCP DFA, LDH and other serologies -Patient now amenable to bronchoscopy, he will likely need a lung Bx as well, if so can do BRONCH @ time of VATS -Continue Pred 60 and taper -PRN Lasix -Optimize pulmonary hygiene/mobilize as tolerated -Titrate down FiO2 to keep SaO2 > 90% -RTC and PRN HHN's -Off Abx per ID -F/U cardiology recs -DVT Px: Hep SQ -Monitor volumes Subjective Allergies: Coded Allergies: No Known Allergies (Unverified , 05/23/17) Subjective AFVSS, O2 needs stable now on 4L Repeat HIV "prelim +", 1/3 AFB may be + for atypical but PCR neg for MTB Less SOB, less cough, no wheezing, no Cp, no F/C, no diarrhea CT A/P reviewed + stool impaction, chest cuts appear slightly improved to me Objective Last 24 Hour Vital Signs Date Time Temp Pulse Resp B/P (MAP) Pulse Ox O2 Delivery O2 Flow Rate FiO2 06/08/17 08:14 97.3 77 20 109/68 96 06/08/17 08:01 Nasal Cannula 4.0 36 06/08/17 08:00 98 Nasal Cannula 4.0 36 06/08/17 04:00 98.2 20 20 121/72 96 06/08/17 04:00 96 Nasal Cannula 4.0 06/08/17 00:00 99.5 77 21 125/74 96 06/08/17 00:00 96 Nasal Cannula 4.0 06/07/17 20:00 93 Nasal Cannula 4.0 06/07/17 20:00 97.9 75 18 119/74 93 06/07/17 19:54 Nasal Cannula 4.0 36 06/07/17 19:54 97 Nasal Cannula 4.0 36 06/07/17 16:00 98.7 93 20 121/77 97 06/07/17 12:56 88 20 98 Nasal Cannula 4.0 06/07/17 12:46 86 20 96 Nasal Cannula 4.0 Intake and Output 06/07/17 06/08/17 19:00 07:00 Intake Total 800 ml Output Total 800 ml Balance 800 ml -800 ml Intake Oral 800 ml Output Urine Total 800 ml # Voids 3 # Bowel Movements 2 1 General Appearance: no acute distress, cachetic HEENT: normocephalic, atraumatic, mucous membranes moist Respiratory/Chest: chest wall non-tender, rhonchi - scattered but with improved air movement Cardiovascular: normal peripheral pulses, regular rhythm, regularly irregular Abdomen: normal bowel sounds, soft, non tender, no organomegaly, non distended Extremities: no cyanosis, no clubbing, no edema Microbiology Date/Time Source Procedure Growth Status 06/07/17 06:00 Sputum Expectorated Gram Stain - Final Resulted 06/07/17 06:00 Sputum Expectorated Sputum Culture Pending Resulted Laboratory Tests 06/07/17 17:36: Urine Color Yellow, Urine Appearance Clear, Urine pH 7, Urine Specific [place] 1.005, Urine Protein 2+H, Urine Glucose (UA) Negative, Urine Ketones Negative, Urine Occult Blood 1+H, Urine Nitrite Negative, Urine Bilirubin Negative, Urine Urobilinogen 1H, Urine Leukocyte Esterase 1+H, Urine RBC 2-4H, Urine WBC 2-4, Urine Squamous Epithelial Cells Few, Urine Bacteria Few 06/08/17 00:00: HIV-1 Antibody [Pending], HIV-2 Antibody [Pending] 06/08/17 04:00: Arterial Blood pH 7.516H, Arterial Blood Partial Pressure CO2 47.3H, Arterial Blood Partial Pressure O2 71.9L, Arterial Blood HCO3 37.4H, Arterial Blood Oxygen Saturation 94.0, Arterial Blood Base Excess 13.1, Michael Test Positive 06/08/17 05:00: HIV (1&2) Antibody Rapid Preliminary positiveH Current Medications Medications (Trade) Dose Ordered Sig/Anna Route PRN Reason Start Time Stop Time Status Last Admin Dose Admin Acetaminophen (Tylenol) 650 mg Q4H PRN ORAL T>100.5 05/23/17 12:15 06/22/17 12:14 05/29/17 21:16 Dextrose (Dextrose 50%) STAT PRN IV Hypoglycemia 05/23/17 12:15 06/22/17 12:14 Divalproex Sodium (Depakote ER) 1,000 mg EVERY 12 HOURS ORAL 05/29/17 09:00 06/28/17 08:59 06/03/17 22:07 Docusate Sodium (Colace) 100 mg TWICE A DAY ORAL 06/08/17 18:00 07/08/17 17:59 Fluoxetine HCl (PROzac) 20 mg DAILY ORAL 05/27/17 09:00 06/26/17 08:59 06/06/17 08:35 Folic Acid (Folate) 1 mg DAILY ORAL 05/27/17 09:00 06/26/17 08:59 06/04/17 10:08 Heparin Sodium (Porcine) (Heparin 5000 units/ml) 5,000 units EVERY 12 HOURS SUBQ 05/23/17 21:00 06/22/17 20:59 06/07/17 21:13 Lactulose (Cephulac) 10 gm THREE TIMES A DAY ORAL 06/08/17 13:00 07/08/17 12:59 Multivitamins (Multivitamins) 1 tab DAILY ORAL 05/31/17 09:00 06/30/17 08:59 06/04/17 10:08 Ondansetron HCl (Zofran) 4 mg Q6H PRN IVP Nausea & Vomiting 05/23/17 12:15 06/22/17 12:14 Polyethylene Glycol (Miralax) 17 gm DAILYPRN PRN ORAL Constipation 05/23/17 12:15 06/22/17 12:14 Prednisone (predniSONE) 60 mg DAILY ORAL 06/06/17 21:00 07/06/17 20:59 06/08/17 09:14 Ranitidine HCl (Zantac) 150 mg BEDTIME ORAL 05/26/17 21:00 06/25/17 20:59 06/06/17 21:13 Thiamine HCl (Vitamin B1) 100 mg DAILY ORAL 05/31/17 09:00 06/30/17 08:59 06/03/17 10:09 Zolpidem Tartrate (Ambien) 5 mg HSPRN PRN ORAL Insomnia 06/02/17 19:15 06/09/17 19:14 ALONA DAWKINS M.D. Jun 08, 2017 12:07
[2017-06-08 12:12] VITALS: BP 125/76
[2017-06-08] MEDS: Lactulose 10gm/15ml UDC ORAL SCH ×2 (13:00→18:00)
[2017-06-08] MEDS ORDERED: Albuterol/Ipratropium 3ml neb HHN PRN (13:30)
[2017-06-08 16:00] VITALS: BP 129/83
[2017-06-08] MEDS: Docusate 100mg cap ORAL SCH (18:00)
[2017-06-08] MEDS: Albuterol/Ipratropium 3ml neb HHN SCH (19:55)
[2017-06-08 20:00] VITALS: BP 128/74
--- NOTE | 2017-06-08 20:38 | General Progress Note ---
Assessment/Plan Assessment/Plan ASSESSMENT/PLAN Leukopenia, could be infectious Anemia, watch counts, transfuse if hgb below 7 --> may in future require bone marrow --> ID eval, for HIV status Anemia 2/2 folic acid deficiency MSSA PNA Interstitial lung disease acute hypoxemic RF requiring VM severe protein calorie malnutrition diarrhea, better. C. diff negative alcohol dependence depression Subjective Hematologic/Lymphatic: Reports: anemia Allergies: Coded Allergies: No Known Allergies (Unverified , 05/23/17) All Systems: reviewed and negative except above Subjective NAD Objective Last 24 Hour Vital Signs Date Time Temp Pulse Resp B/P (MAP) Pulse Ox O2 Delivery O2 Flow Rate FiO2 06/08/17 20:06 85 18 99 Nasal Cannula 4.0 06/08/17 20:00 98.4 86 20 128/74 95 06/08/17 19:57 98 Nasal Cannula 4.0 36 06/08/17 19:56 86 18 96 Nasal Cannula 4.0 06/08/17 19:56 Nasal Cannula 4.0 36 06/08/17 19:56 83 18 Nasal Cannula 4.0 36 06/08/17 19:56 98 Nasal Cannula 4.0 36 06/08/17 16:00 100.0 86 20 129/83 95 Nasal Cannula 4.0 06/08/17 12:12 98.1 82 20 125/76 95 Room Air 06/08/17 08:14 97.3 77 20 109/68 96 06/08/17 08:01 Nasal Cannula 4.0 36 06/08/17 08:00 98 Nasal Cannula 4.0 36 06/08/17 04:00 98.2 20 20 121/72 96 06/08/17 04:00 96 Nasal Cannula 4.0 06/08/17 00:00 99.5 77 21 125/74 96 06/08/17 00:00 96 Nasal Cannula 4.0 Intake and Output 06/07/17 06/08/17 19:00 07:00 Intake Total 800 ml Output Total 800 ml Balance 800 ml -800 ml Intake Oral 800 ml Output Urine Total 800 ml # Voids 3 # Bowel Movements 2 1 Laboratory Tests 06/08/17 00:00: HIV-1 Antibody [Pending], HIV-2 Antibody [Pending] 06/08/17 04:00: Arterial Blood pH 7.516H, Arterial Blood Partial Pressure CO2 47.3H, Arterial Blood Partial Pressure O2 71.9L, Arterial Blood HCO3 37.4H, Arterial Blood Oxygen Saturation 94.0, Arterial Blood Base Excess 13.1, Michael Test Positive 06/08/17 05:00: Lactate Dehydrogenase 531H, HIV (1&2) Antibody Rapid Preliminary positiveH Height (Feet): 5 Height (Inches): 10.00 Weight (Pounds): 90 General Appearance: no apparent distress EENT: normal ENT inspection Neck: normal alignment Cardiovascular: normal peripheral pulses Respiratory/Chest: no accessory muscle use Abdomen: normal bowel sounds Nikhil Woodward Jun 08, 2017 20:38
[2017-06-09] VITALS: BP 144/88
[2017-06-09] MEDS: Albuterol/Ipratropium 3ml neb HHN SCH ×4 (02:07→20:07)
[2017-06-09 04:00] VITALS: BP 124/80
[2017-06-09 08:00] VITALS: BP 121/73
[2017-06-09] MEDS: Docusate 100mg cap ORAL SCH ×3 (09:00→18:00)
[2017-06-09] MEDS: Depakote ER 500mg tab ORAL SCH ×3 (09:00→20:57)
[2017-06-09] MEDS: Lactulose 10gm/15ml UDC ORAL SCH ×4 (09:00→18:00)
[2017-06-09] MEDS: Heparin 5000 units/ml inj SUBQ SCH ×2 (09:00→20:57)
[2017-06-09] MEDS: Thiamine 100mg tab ORAL SCH ×2 (09:00→09:25)
--- NOTE | 2017-06-09 11:00 | Infectious Diseases Prog Note ---
Assessment/Plan Assessment/Plan ASSESSMENT: The patient is a 41-year-old male with Weight loss Fever , SP low grade x 1 Pneumonia. . Sp Cx : MSSA SP Rx CT of Abd /Bilateral pulmonary alveolar infiltrates consistent with pneumonia. AFBx 3 : Neg ( 3rd from 05/26 not in EMR ) now AFB Cx 05/25 : +ve growth ( m/l atypical Mycobacterium ? real vs contaminant) MTB PCR : Neg T Spot : neg Crytpo and blastomycosis: JOHANNA Neg ; RF + histo : did not resulted due lab issues CT: Extensive interstitial and airspace parenchymal disease, and honeycomb appearance of much of the lower lobe and right middle lobe interstitial component, ? HIV: first test negative repeat ( prelim +ve ) Chronic diarrhea resolved, Stool for ova and parasite ( ? sent ) stool Cx : neg ? pancreatic insufficiency due to chronic alcohol abuse Elevated ESR , CRP and RF JOHANNA : neg Leukopenia probable non ID ch lung disease Anemia and leukopenia PLAN: pt has improved overall , CT improved , but if pt worsen may start pt on Bactrim for possible PCP monitor pt off of AB Rx 06/05 SP Ancef d# 10 / 10 05/30 SP Zithromax d# 5 / 5 06/01 SP ( refusing) Flagyl d# 46 05/27 SP vancomycin, cefepime d# 5, Monitor CBC/CMP Serology (coccidio , reordered ) GI following for the patient's chronic diarrhea. possilbe lung Bx and Bronch as per Pul hem following , ( pt may need bone marrow ) f/u HIV PCR, CD4 repeat AFB sp and MTB PCR legionella ag and histoplasma ag uribne AFB DNA probe ( MAC , TB ) airborne iso Fungal and AFB blood Cx repeat ESR,CRP Subjective Allergies: Coded Allergies: No Known Allergies (Unverified , 05/23/17) Subjective intermittent low grade fever Tm 100 mild leukopenia awaiting ID AFB sp cx Objective Vital Signs Last 24 Hour Vital Signs Date Time Temp Pulse Resp B/P (MAP) Pulse Ox O2 Delivery O2 Flow Rate FiO2 06/09/17 09:43 Nasal Cannula 4.0 06/09/17 09:42 Nasal Cannula 4.0 06/09/17 09:42 Nasal Cannula 4.0 36 06/09/17 09:42 98 Nasal Cannula 4.0 36 06/09/17 08:00 98.0 75 20 121/73 100 06/09/17 04:00 97.0 79 20 124/80 98 06/09/17 02:15 89 18 99 Nasal Cannula 4.0 06/09/17 02:07 82 18 96 Nasal Cannula 4.0 06/09/17 00:00 99.0 63 20 144/88 97 06/08/17 20:06 85 18 99 Nasal Cannula 4.0 06/08/17 20:00 98.4 86 20 128/74 95 06/08/17 19:57 98 Nasal Cannula 4.0 36 06/08/17 19:56 86 18 96 Nasal Cannula 4.0 06/08/17 19:56 Nasal Cannula 4.0 36 06/08/17 19:56 83 18 Nasal Cannula 4.0 36 06/08/17 19:56 98 Nasal Cannula 4.0 36 06/08/17 16:00 100.0 86 20 129/83 95 Nasal Cannula 4.0 06/08/17 12:12 98.1 82 20 125/76 95 Room Air Height (Feet): 5 Height (Inches): 10.00 Weight (Pounds): 90 Objective General Appearance: no acute distress, cachetic HEENT: normocephalic, atraumatic, mucous membranes moist Respiratory/Chest: chest wall non-tender, rhonchi - scattered but with improved air movement Cardiovascular: normal peripheral pulses, regular rhythm, regularly irregular Abdomen: normal bowel sounds, soft, non tender, no organomegaly, non distended Extremities: no cyanosis, no clubbing, no edema Microbiology Date/Time Source Procedure Growth Status 06/07/17 06:00 Sputum Expectorated Gram Stain - Final Resulted 06/07/17 06:00 Sputum Expectorated Sputum Culture - Preliminary NORMAL UPPER RESPIRATORY ABDIFATAH AT 24 ... Resulted Current Medications Medications (Trade) Dose Ordered Sig/Anna Route PRN Reason Start Time Stop Time Status Last Admin Dose Admin Acetaminophen (Tylenol) 650 mg Q4H PRN ORAL T>100.5 05/23/17 12:15 06/22/17 12:14 05/29/17 21:16 Albuterol/ Ipratropium (Albuterol/ Ipratropium) 3 ml Q4H PRN HHN Shortness of Breath 06/08/17 13:30 06/13/17 13:29 Albuterol/ Ipratropium (Albuterol/ Ipratropium) 3 ml Q6HRT HHN 06/08/17 19:00 06/13/17 18:59 06/09/17 02:07 Dextrose (Dextrose 50%) STAT PRN IV Hypoglycemia 05/23/17 12:15 06/22/17 12:14 Divalproex Sodium (Depakote ER) 1,000 mg EVERY 12 HOURS ORAL 05/29/17 09:00 06/28/17 08:59 06/03/17 22:07 Docusate Sodium (Colace) 100 mg TWICE A DAY ORAL 06/08/17 18:00 07/08/17 17:59 Fluoxetine HCl (PROzac) 20 mg DAILY ORAL 05/27/17 09:00 06/26/17 08:59 06/06/17 08:35 Folic Acid (Folate) 1 mg DAILY ORAL 05/27/17 09:00 06/26/17 08:59 06/04/17 10:08 Heparin Sodium (Porcine) (Heparin 5000 units/ml) 5,000 units EVERY 12 HOURS SUBQ 05/23/17 21:00 06/22/17 20:59 06/07/17 21:13 Lactulose (Cephulac) 10 gm THREE TIMES A DAY ORAL 06/08/17 13:00 07/08/17 12:59 Multivitamins (Multivitamins) 1 tab DAILY ORAL 05/31/17 09:00 06/30/17 08:59 06/04/17 10:08 Ondansetron HCl (Zofran) 4 mg Q6H PRN IVP Nausea & Vomiting 05/23/17 12:15 06/22/17 12:14 Polyethylene Glycol (Miralax) 17 gm DAILYPRN PRN ORAL Constipation 05/23/17 12:15 06/22/17 12:14 Prednisone (predniSONE) 60 mg DAILY ORAL 06/06/17 21:00 07/06/17 20:59 06/08/17 09:14 Ranitidine HCl (Zantac) 150 mg BEDTIME ORAL 05/26/17 21:00 06/25/17 20:59 06/06/17 21:13 Thiamine HCl (Vitamin B1) 100 mg DAILY ORAL 05/31/17 09:00 06/30/17 08:59 12/20/17 10:09 Zolpidem Tartrate (Ambien) 5 mg HSPRN PRN ORAL Insomnia 06/02/17 19:15 06/09/17 19:14 Haydee Tucker M.D. Jun 09, 2017 11:00
[2017-06-09 12:00] VITALS: BP 144/93
--- NOTE | 2017-06-09 13:05 | Pulmonology Progress Note ---
Assessment/Plan Assessment/Plan ASSESSMENT MSSA PNA Interstitial lung disease acute hypoxemic RF requiring VM -resolved severe protein calorie malnutrition diarrhea alcohol dependence depression probably HIV disease positive AFB 1/2 ? PCR PLAN OF CARE MS floor respiratory isolation supplemental titrate O2 to keep sat above 92%, pulmonary toilet sputum AFB x 3 ( 2 smear negative, but one cx + AFB) PPD negative , MTB PCR negative CT chest noted c/w ILD sputum + Staph aureus s/p abx, ID follows now 1/2 AFB +some activity ID follows first rapid HIV test negative , repeated rapid HIV test preliminary positive CD4 pending LDH elevated started on steroids and clinically with some improvement DFA pending ? PCR ID ( dr Patel) prefer to hold off Bactrim since improving with steroids 1/2 AFB with activity ? ? JERRY? actinomycosis? nocardia bronch in am at [address] Cooley, NPO after MN explained to patient, agreed, will consent per ID : reordered cocci Serology f/u HIV PCR, CD4 count repeat AFB sp and MTB PCR legionella Ag and histoplasma Ag urine AFB DNA probe ( MAC , TB ) continue airborne isolation Fungal and AFB blood Cx repeat ESR,CRP heme following , ( pt may need bone marrow ) venous Duplex BLE negative psych follows, optimized psych med regimen Diarrhea resolved GI following for the patient's chronic diarrhea. stool cx and stool C dif negative logistics analytics manager recommendation re dietary supplements implemented continue with Folic acid, Thiamine, MVI Door Frame Assembler Machine on ETOH cessation DVT, GI prophylaxis case discussed and evaluated by supervising physician Subjective Allergies: Coded Allergies: No Known Allergies (Unverified , 05/23/17) Subjective low grade fever12/25 at 1600; currently afebrile, no leukocytosis diarrhea resolved + intermittent dry cough, no hemoptysis, + weakness weaned from VM down to 4L O2 via NC Objective Last 24 Hour Vital Signs Date Time Temp Pulse Resp B/P (MAP) Pulse Ox O2 Delivery O2 Flow Rate FiO2 06/09/17 09:43 Nasal Cannula 4.0 06/09/17 09:42 Nasal Cannula 4.0 06/09/17 09:42 Nasal Cannula 4.0 36 06/09/17 09:42 98 Nasal Cannula 4.0 36 06/09/17 08:00 98.0 75 20 121/73 100 06/09/17 04:00 97.0 79 20 124/80 98 06/09/17 02:15 89 18 99 Nasal Cannula 4.0 06/09/17 02:07 82 18 96 Nasal Cannula 4.0 06/09/17 00:00 99.0 63 20 144/88 97 06/08/17 20:06 85 18 99 Nasal Cannula 4.0 06/08/17 20:00 98.4 86 20 128/74 95 06/08/17 19:57 98 Nasal Cannula 4.0 36 06/08/17 19:56 86 18 96 Nasal Cannula 4.0 06/08/17 19:56 Nasal Cannula 4.0 36 06/08/17 19:56 83 18 Nasal Cannula 4.0 36 06/08/17 19:56 98 Nasal Cannula 4.0 36 06/08/17 16:00 100.0 86 20 129/83 95 Nasal Cannula 4.0 Intake and Output 06/08/17 06/09/17 19:00 07:00 Intake Total 720 ml Output Total 350 ml 400 ml Balance 370 ml -400 ml Intake Oral 720 ml Output Urine Total 350 ml 400 ml Objective General Appearance: no acute distress, cachetic, A/A/O x 3 male HEENT: normocephalic, atraumatic, anicteric, mucous membranes moist, aO2-4L via NC Respiratory/Chest: few scattered rhonchi with moderate air exchange , no respiratory distress, no accessory muscle use Cardiovascular: normal rate Abdomen: normal bowel sounds, soft, non tender Extremities: no edema, pedal pulses normal Neurologic/Psychiatric: alert, oriented x 3, responsive Musculoskeletal: normal muscle bulk Microbiology Date/Time Source Procedure Growth Status 06/07/17 06:00 Sputum Expectorated Gram Stain - Final Resulted 06/07/17 06:00 Sputum Expectorated Sputum Culture - Preliminary NORMAL UPPER RESPIRATORY ABDIFATAH AT 24 ... Resulted Current Medications Medications (Trade) Dose Ordered Sig/Anna Route PRN Reason Start Time Stop Time Status Last Admin Dose Admin Acetaminophen (Tylenol) 650 mg Q4H PRN ORAL T>100.5 05/23/17 12:15 06/22/17 12:14 05/29/17 21:16 Albuterol/ Ipratropium (Albuterol/ Ipratropium) 3 ml Q4H PRN HHN Shortness of Breath 06/08/17 13:30 06/13/17 13:29 Albuterol/ Ipratropium (Albuterol/ Ipratropium) 3 ml Q6HRT HHN 06/08/17 19:00 06/13/17 18:59 06/09/17 02:07 Dextrose (Dextrose 50%) STAT PRN IV Hypoglycemia 05/23/17 12:15 06/22/17 12:14 Divalproex Sodium (Depakote ER) 1,000 mg EVERY 12 HOURS ORAL 05/29/17 09:00 06/28/17 08:59 06/03/17 22:07 Docusate Sodium (Colace) 100 mg TWICE A DAY ORAL 06/08/17 18:00 07/08/17 17:59 Fluoxetine HCl (PROzac) 20 mg DAILY ORAL 05/27/17 09:00 06/26/17 08:59 06/06/17 08:35 Folic Acid (Folate) 1 mg DAILY ORAL 05/27/17 09:00 06/26/17 08:59 06/04/17 10:08 Heparin Sodium (Porcine) (Heparin 5000 units/ml) 5,000 units EVERY 12 HOURS SUBQ 05/23/17 21:00 06/22/17 20:59 06/07/17 21:13 Lactulose (Cephulac) 10 gm THREE TIMES A DAY ORAL 06/08/17 13:00 07/08/17 12:59 Multivitamins (Multivitamins) 1 tab DAILY ORAL 05/31/17 09:00 06/30/17 08:59 06/04/17 10:08 Ondansetron HCl (Zofran) 4 mg Q6H PRN IVP Nausea & Vomiting 05/23/17 12:15 06/22/17 12:14 Polyethylene Glycol (Miralax) 17 gm DAILYPRN PRN ORAL Constipation 05/23/17 12:15 06/22/17 12:14 Prednisone (predniSONE) 60 mg DAILY ORAL 06/06/17 21:00 07/06/17 20:59 06/08/17 09:14 Ranitidine HCl (Zantac) 150 mg BEDTIME ORAL 05/26/17 21:00 06/25/17 20:59 06/06/17 21:13 Thiamine HCl (Vitamin B1) 100 mg DAILY ORAL 05/31/17 09:00 06/30/17 08:59 06/03/17 10:09 Zolpidem Tartrate (Ambien) 5 mg HSPRN PRN ORAL Insomnia 06/02/17 19:15 06/09/17 19:14 Bob ([facility] Hol[facility] NP Jun 09, 2017 13:05
--- NOTE | 2017-06-09 14:53 | GI Progress Note ---
Assessment/Plan Problems: (1) Generalized weakness ICD Codes: R53.1 - Weakness SNOMED: 67047380 (2) Anemia ICD Codes: D64.9 - Anemia, unspecified SNOMED: 663708696 (3) Severe protein-calorie malnutrition ICD Codes: E43 - Unspecified severe protein-calorie malnutrition SNOMED: 359248206 (4) Atypical pneumonia ICD Codes: J18.9 - Pneumonia, unspecified organism SNOMED: 108327540 (5) Protein calorie malnutrition ICD Codes: E46 - Unspecified protein-calorie malnutrition SNOMED: 655878303 Qualifiers: Qualified Codes: E44.0 - Moderate protein-calorie malnutrition (6) Diarrhea ICD Codes: R19.7 - Diarrhea, unspecified SNOMED: 49675354 Qualifiers: Qualified Codes: R19.7 - Diarrhea, unspecified Status: unchanged Status Narrative Discussed with Dr. Gamez. Assessment/Plan CT chest reviewed. cdiff negative iron levels unremarkable HIV negative, send test positive airborne r/o TB KUB r/o chronic pancreatitis >> unremarkable OB stool r/o GI bleed >> negative Tissue Transglutaminase IgA r/o celiac >> negative fu pulmonary recs fu CT>>> fecal impaction>>> bowel regimen, BM today monitor H&H, prn transfusions bowel regime ppi folate PO H2B fu labs Subjective Subjective refuse PO meds constipation Objective Last 24 Hour Vital Signs Date Time Temp Pulse Resp B/P (MAP) Pulse Ox O2 Delivery O2 Flow Rate FiO2 06/09/17 13:58 88 18 99 Nasal Cannula 4.0 06/09/17 13:51 86 18 97 Nasal Cannula 4.0 06/09/17 12:00 97.7 63 20 144/93 98 06/09/17 09:43 Nasal Cannula 4.0 06/09/17 09:42 Nasal Cannula 4.0 06/09/17 09:42 Nasal Cannula 4.0 36 06/09/17 09:42 98 Nasal Cannula 4.0 36 06/09/17 08:00 98.0 75 20 121/73 100 06/09/17 04:00 97.0 79 20 124/80 98 06/09/17 02:15 89 18 99 Nasal Cannula 4.0 06/09/17 02:07 82 18 96 Nasal Cannula 4.0 06/09/17 00:00 99.0 63 20 144/88 97 06/08/17 20:06 85 18 99 Nasal Cannula 4.0 06/08/17 20:00 98.4 86 20 128/74 95 06/08/17 19:57 98 Nasal Cannula 4.0 36 06/08/17 19:56 86 18 96 Nasal Cannula 4.0 06/08/17 19:56 Nasal Cannula 4.0 36 06/08/17 19:56 83 18 Nasal Cannula 4.0 36 06/08/17 19:56 98 Nasal Cannula 4.0 36 06/08/17 16:00 100.0 86 20 129/83 95 Nasal Cannula 4.0 Intake and Output 06/08/17 06/09/17 19:00 07:00 Intake Total 720 ml Output Total 350 ml 400 ml Balance 370 ml -400 ml Intake Oral 720 ml Output Urine Total 350 ml 400 ml Height (Feet): 5 Height (Inches): 10.00 Weight (Pounds): 90 General Appearance: WD/WN, no apparent distress, alert, thin Cardiovascular: normal rate Respiratory/Chest: normal breath sounds, no respiratory distress, other - NC Abdominal Exam: normal bowel sounds, non tender, soft Extremities: normal range of motion, non-tender Alyssa Felix N.P. Jun 09, 2017 14:53
[2017-06-09 16:00] VITALS: BP 119/73
[2017-06-09 20:00] VITALS: BP 133/85
--- NOTE | 2017-06-09 22:55 | General Progress Note ---
Assessment/Plan Assessment/Plan ASSESSMENT/PLAN Leukopenia, could be infectious Anemia, watch counts, transfuse if hgb below 7 --> may in future require bone marrow --> ID eval, for HIV status, pending repeat test -->Low folate level, continue PO folate Anemia 2/2 folic acid deficiency MSSA PNA Interstitial lung disease acute hypoxemic RF requiring VM severe protein calorie malnutrition diarrhea, better. C. diff negative alcohol dependence depression Subjective Constitutional: Reports: fever, malaise, weakness Allergies: Coded Allergies: No Known Allergies (Unverified , 05/23/17) All Systems: reviewed and negative except above Subjective with a mild fever Objective Last 24 Hour Vital Signs Date Time Temp Pulse Resp B/P (MAP) Pulse Ox O2 Delivery O2 Flow Rate FiO2 06/09/17 20:15 82 18 99 Nasal Cannula 4.0 06/09/17 20:08 76 18 95 Nasal Cannula 4.0 06/09/17 20:08 97 Nasal Cannula 4.0 36 06/09/17 20:08 Nasal Cannula 4.0 36 06/09/17 20:00 98.8 80 21 133/85 99 06/09/17 16:00 97.5 76 20 119/73 100 06/09/17 13:58 88 18 99 Nasal Cannula 4.0 06/09/17 13:51 86 18 97 Nasal Cannula 4.0 06/09/17 12:00 97.7 63 20 144/93 98 06/09/17 09:43 Nasal Cannula 4.0 06/09/17 09:42 Nasal Cannula 4.0 06/09/17 09:42 Nasal Cannula 4.0 36 06/09/17 09:42 98 Nasal Cannula 4.0 36 06/09/17 08:00 98.0 75 20 121/73 100 06/09/17 04:00 97.0 79 20 124/80 98 06/09/17 02:15 89 18 99 Nasal Cannula 4.0 06/09/17 02:07 82 18 96 Nasal Cannula 4.0 06/09/17 00:00 99.0 63 20 144/88 97 Intake and Output 06/08/17 06/09/17 19:00 07:00 Intake Total 720 ml Output Total 350 ml 400 ml Balance 370 ml -400 ml Intake Oral 720 ml Output Urine Total 350 ml 400 ml Height (Feet): 5 Height (Inches): 10.00 Weight (Pounds): 90 General Appearance: thin EENT: normal ENT inspection Neck: normal alignment Cardiovascular: normal peripheral pulses Edema: trace edema Neurologic: ballroom dancer II-XII 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 Skin: normal pigmentation Nikhil Woodward Jun 09, 2017 22:55
[2017-06-10] VITALS (12 sets, daily range): BP systolic 94–158; BP diastolic 54–95
[2017-06-10] MEDS: Albuterol/Ipratropium 3ml neb HHN SCH ×4 (02:07→20:31)
[2017-06-10 06:44] LABS: ALANINE AMINOTRANSFERASE 39 U/L (12-78); ALBUMIN/GLOBULIN RATIO 0.1 (1.0-2.7); ALKALINE PHOSPHATASE 181 U/L (46-116); ANION GAP 0 mmol/L (5-15); ASPARTATE AMINO TRANSFERASE 34 U/L (15-37); BILIRUBIN,TOTAL 0.3 MG/DL (0.2-1.0); BLOOD UREA NITROGEN 14 mg/dL (7-18); CARBON DIOXIDE 38 MMOL/L (21-32); CHLORIDE 98 MMOL/L (98-107); CREATININE 0.5 MG/DL (0.55-1.30); HEMOGLOBIN 8.6 G/DL (14.2-18.0); MEAN CORPUSCULAR VOLUME 92 FL (80-99); PLATELET COUNT 291 K/UL (150-450); POTASSIUM 3.2 MMOL/L (3.5-5.1); RED BLOOD COUNT 2.92 M/UL (4.70-6.10); RED CELL DISTRIBUTION WIDTH 13.5 % (11.6-14.8); SODIUM 136 MMOL/L (136-145); WHITE BLOOD COUNT 2.9 K/UL (4.8-10.8)
[2017-06-10] MEDS: Lactulose 10gm/15ml UDC ORAL SCH ×3 (08:27→17:20)
[2017-06-10] MEDS: Depakote ER 500mg tab ORAL SCH ×2 (08:27→21:00)
[2017-06-10] MEDS: Docusate 100mg cap ORAL SCH ×2 (08:27→17:20)
[2017-06-10] MEDS: Heparin 5000 units/ml inj SUBQ SCH ×2 (08:29→21:00)
[2017-06-10] MEDS: Thiamine 100mg tab ORAL SCH ×3 (08:29→12:51)
[2017-06-10] MEDS ORDERED: Lidocaine HCl 2% Jelly 5ml Tube TOPIC ONE (09:18)
[2017-06-10] MEDS ORDERED: Lidocaine 1% Plain 30 ml INJ ONE (09:19)
[2017-06-10] MEDS ORDERED: Propofol 200mg/20ml IV ONE (09:58)
[2017-06-10] MEDS ORDERED: Zemuron 50mg/5ml Inj IV ONE (09:58)
[2017-06-10] MEDS ORDERED: fentaNYL 100 mcg/2 mL IV ONE (09:58)
[2017-06-10] MEDS ORDERED: Sterile Water Irrig 1000ml IRRIG ONE (09:58)
[2017-06-10] MEDS ORDERED: Midazolam 2mg/2ml Inj ONE (09:58)
[2017-06-10] MEDS ORDERED: Succinylcholine 20mg/ml 10ml vial ONE (09:58)
[2017-06-10] MEDS ORDERED: NS Irrig 1000ml ONE (09:58)
--- NOTE | 2017-06-10 10:07 | Pre-Procedure Note/Attestation ---
Pre-Procedure Note/Attestation Complete Prior to Procedure Planned Procedure: bilateral Procedure Narrative: BRONCHOSCOPY and BRONCHOALVEOLAR LAVAGE Indications for Procedure Pre-Operative Diagnosis: LUNG INFILTRATES Attestation I attest that I discussed the nature of the procedure; its benefits; risks and complications; and alternatives (and the risks and benefits of such alternatives ), prior to the procedure, with the patient (or the patient's legal account manager sales representative). I attest that, if there was a reasonable possibility of needing a blood transfusion, the patient (or the patient's legal account manager sales representative) was given the [facility] standardized written summary, pursuant to the Philip Jolley Blood Safety Act ([place] Health and Safety Code # 1645, as amended). I attest that I re-evaluated the patient just prior to the surgery and that there has been no change in the patient's H&P, except as documented below: ALONA DAWKINS M.D. Jun 10, 2017 10:07
--- NOTE | 2017-06-10 10:31 | Pulmonology Progress Note ---
Assessment/Plan Assessment/Plan ASSESSMENT MSSA PNA Interstitial lung disease acute hypoxemic RF requiring VM -resolved severe protein calorie malnutrition diarrhea alcohol dependence depression probably HIV disease positive AFB 1/2 ? PCR PLAN OF CARE [facility] floor respiratory isolation supplemental O2 titrate O2 to keep sat above 92%, pulmonary toilet sputum AFB x 3 ( 2 smear negative, but one cx + AFB) PPD negative , MTB PCR negative CT chest noted c/w ILD sputum + Staph aureus s/p abx, ID follows now 1/2 AFB +some activity ID follows first rapid HIV test negative , repeated rapid HIV test preliminary positive CD4 count pending LDH elevated started on steroids and clinically with some improvement DFA pending ? PCR ID ( dr Patel) prefer to hold off Bactrim since improving with steroids 1/2 AFB with activity ? ? JERRY? actinomycosis? nocardia bronch this am per ID : reordered cocci Serology f/u HIV PCR, CD4 count repeat AFB sp and MTB PCR legionella Ag and histoplasma Ag urine AFB DNA probe ( MAC , TB ) continue airborne isolation Fungal and AFB blood Cx repeat ESR,CRP replace K, check K and Mg in am heme following , ( pt may need bone marrow ) venous Duplex BLE negative psych follows, optimized psych med regimen Diarrhea resolved GI following for the patient's chronic diarrhea. stool cx and stool C dif negative product introduction manager recommendation re dietary supplements implemented continue with Folic acid, Thiamine, MVI Inspector Fuel Hose on ETOH cessation DVT, GI prophylaxis case discussed and evaluated by supervising physician Subjective Allergies: Coded Allergies: No Known Allergies (Unverified , 05/23/17) Subjective afebrile, no leukocytosis diarrhea resolved + intermittent dry cough, no hemoptysis, + weakness weaned from VM down to 4L O2 via NC bronch today Objective Last 24 Hour Vital Signs Date Time Temp Pulse Resp B/P (MAP) Pulse Ox O2 Delivery O2 Flow Rate FiO2 06/10/17 08:00 98.0 54 20 158/95 99 06/10/17 07:45 89 18 99 Nasal Cannula 4.0 06/10/17 07:40 99 Nasal Cannula 4.0 36 06/10/17 07:40 68 18 99 Nasal Cannula 4.0 06/10/17 07:40 Nasal Cannula 4.0 36 06/10/17 04:16 100 Nasal Cannula 4.0 06/10/17 04:13 98.8 73 20 129/79 100 Nasal Cannula 06/10/17 02:15 88 18 99 Nasal Cannula 4.0 06/10/17 02:09 82 18 96 Nasal Cannula 4.0 06/10/17 00:00 97.9 65 20 132/73 100 06/10/17 00:00 100 Nasal Cannula 4.0 06/09/17 20:15 82 18 99 Nasal Cannula 4.0 06/09/17 20:08 76 18 95 Nasal Cannula 4.0 06/09/17 20:08 97 Nasal Cannula 4.0 36 06/09/17 20:08 Nasal Cannula 4.0 36 06/09/17 20:00 99 Nasal Cannula 4.0 06/09/17 20:00 98.8 80 21 133/85 99 06/09/17 16:00 97.5 76 20 119/73 100 06/09/17 13:58 88 18 99 Nasal Cannula 4.0 06/09/17 13:51 86 18 97 Nasal Cannula 4.0 06/09/17 12:00 97.7 63 20 144/93 98 Intake and Output 06/09/17 06/10/17 19:00 07:00 Intake Total 300 ml Output Total 500 ml Balance 300 ml -500 ml Intake Oral 300 ml Output Urine Total 500 ml # Voids 5 2 # Bowel Movements 1 Objective General Appearance: no acute distress, cachetic, A/A/O x 3 male HEENT: normocephalic, atraumatic, anicteric, mucous membranes moist, aO2-4L via NC Respiratory/Chest: few scattered rhonchi with moderate air exchange , no respiratory distress, no accessory muscle use Cardiovascular: normal rate Abdomen: normal bowel sounds, soft, non tender Extremities: no edema, pedal pulses normal Neurologic/Psychiatric: alert, oriented x 3, responsive Musculoskeletal: normal muscle bulk Laboratory Tests 06/10/17 04:50: White Blood Count 2.9L, Red Blood Count 2.92L, Hemoglobin 8.6L, Hematocrit 27.0L , Mean Corpuscular Volume 92, Mean Corpuscular Hemoglobin 29.6, Mean Corpuscular Hemoglobin Concent 32.1, Red Cell Distribution Width 13.5, Platelet Count 291, Mean Platelet Volume 7.0, Neutrophils (%) (Auto) , Lymphocytes (%) ( Auto) , Monocytes (%) (Auto) , Eosinophils (%) (Auto) , Basophils (%) (Auto) , Differential Total Cells Counted 100, Neutrophils % (Manual) 90H, Lymphocytes % (Manual) 8L, Monocytes % (Manual) 1, Eosinophils % (Manual) 1, Basophils % ( Manual) 0, Band Neutrophils 0, Platelet Estimate Adequate, Platelet Morphology Normal, Hypochromasia 1+, Erythrocyte Sedimentation Rate 126H, Sodium Level 136 , Potassium Level 3.2L, Chloride Level 98, Carbon Dioxide Level 38H, Anion Gap 0L, Blood Urea Nitrogen 14, Creatinine 0.5L, Estimat Glomerular Filtration Rate > 60, Glucose Level 76, Calcium Level 7.0L, Total Bilirubin 0.3, Aspartate Amino Transf (AST/SGOT) 34, Alanine Aminotransferase (ALT/SGPT) 39, Alkaline Phosphatase 181H, C-Reactive Protein, Quantitative 6.5H, Total Protein 7.8, Albumin 1.0L, Globulin 6.8, Albumin/Globulin Ratio 0.1L Current Medications Medications (Trade) Dose Ordered Sig/Anna Route PRN Reason Start Time Stop Time Status Last Admin Dose Admin Acetaminophen (Tylenol) 650 mg Q4H PRN ORAL T>100.5 05/23/17 12:15 06/22/17 12:14 05/29/17 21:16 Albuterol/ Ipratropium (Albuterol/ Ipratropium) 3 ml Q4H PRN HHN Shortness of Breath 06/08/17 13:30 06/13/17 13:29 Albuterol/ Ipratropium (Albuterol/ Ipratropium) 3 ml Q6HRT HHN 06/08/17 19:00 06/13/17 18:59 06/10/17 08:13 Dextrose (Dextrose 50%) STAT PRN IV Hypoglycemia 05/23/17 12:15 06/22/17 12:14 Divalproex Sodium (Depakote ER) 1,000 mg EVERY 12 HOURS ORAL 05/29/17 09:00 06/28/17 08:59 06/03/17 22:07 Docusate Sodium (Colace) 100 mg TWICE A DAY ORAL 06/08/17 18:00 07/08/17 17:59 Fluoxetine HCl (PROzac) 20 mg DAILY ORAL 05/27/17 09:00 06/26/17 08:59 06/06/17 08:35 Folic Acid (Folate) 1 mg DAILY ORAL 05/27/17 09:00 06/26/17 08:59 06/04/17 10:08 Heparin Sodium (Porcine) (Heparin 5000 units/ml) 5,000 units EVERY 12 HOURS SUBQ 05/23/17 21:00 06/22/17 20:59 06/07/17 21:13 Lactulose (Cephulac) 10 gm THREE TIMES A DAY ORAL 06/08/17 13:00 07/08/17 12:59 Multivitamins (Multivitamins) 1 tab DAILY ORAL 05/31/17 09:00 06/30/17 08:59 06/04/17 10:08 Ondansetron HCl (Zofran) 4 mg Q6H PRN IVP Nausea & Vomiting 05/23/17 12:15 06/22/17 12:14 Polyethylene Glycol (Miralax) 17 gm DAILYPRN PRN ORAL Constipation 05/23/17 12:15 06/22/17 12:14 Prednisone (predniSONE) 60 mg DAILY ORAL 06/06/17 21:00 07/06/17 20:59 06/08/17 09:14 Ranitidine HCl (Zantac) 150 mg BEDTIME ORAL 05/26/17 21:00 06/25/17 20:59 06/06/17 21:13 Thiamine HCl (Vitamin B1) 100 mg DAILY ORAL 05/31/17 09:00 06/30/17 08:59 06/03/17 10:09 Analy Rojas NP (Vanchtein) Jun 10, 2017 10:31
--- NOTE | 2017-06-10 10:37 | Operative Note - PDOC ---
Operative Note Operative Note Date of Operation/Procedure: Jun 10, 2017 Chief Complaint: SOB Pre-op Diagnosis: LUNG INFILTRATES Procedure: Bronchoscopy with bronchoalveolar lavage Post-op Diagnosis: Bilateral lung infiltrates Friable mucosa but no active bleeding Mild mucoid secretions Normal endobronchial anatomy to subsegmental bronchi S/P BAL b LL Surgeon: Pramod Cooley MD Lathe Hand: N/A Additional Surgeons: N/A Anesthesia: general Specimen: yes Complications: none Condition: stable Estimated Blood Loss: none Drains: none Implant(s) used?: No PRAMOD COOLEY M.D. Jun 10, 2017 10:37
--- NOTE | 2017-06-10 10:55 | GI Progress Note ---
Assessment/Plan Problems: (1) Generalized weakness ICD Codes: R53.1 - Weakness SNOMED: 80070221 (2) Anemia ICD Codes: D64.9 - Anemia, unspecified SNOMED: 107457320 (3) Severe protein-calorie malnutrition ICD Codes: E43 - Unspecified severe protein-calorie malnutrition SNOMED: 565488488 (4) Atypical pneumonia ICD Codes: J18.9 - Pneumonia, unspecified organism SNOMED: 381459314 (5) Protein calorie malnutrition ICD Codes: E46 - Unspecified protein-calorie malnutrition SNOMED: 025817597 Qualifiers: Qualified Codes: E44.0 - Moderate protein-calorie malnutrition (6) Diarrhea ICD Codes: R19.7 - Diarrhea, unspecified SNOMED: 57579931 Qualifiers: Qualified Codes: R19.7 - Diarrhea, unspecified Status: unchanged Status Narrative Discussed with Dr. Gamez. Assessment/Plan CT chest reviewed. cdiff negative iron levels unremarkable HIV negative, second test positive airborne r/o TB KUB r/o chronic pancreatitis >> unremarkable OB stool r/o GI bleed >> negative Tissue Transglutaminase IgA r/o celiac >> negative fu pulmonary recs fu CT>>> fecal impaction>>> bowel regimen, BM yesterday monitor H&H, prn transfusions bowel regime ppi folate PO H2B fu labs Subjective Subjective refuse PO meds constipation Objective Last 24 Hour Vital Signs Date Time Temp Pulse Resp B/P (MAP) Pulse Ox O2 Delivery O2 Flow Rate FiO2 06/10/17 10:50 94 21 94/68 100 Simple Mask 6.0 06/10/17 10:48 98.4 95 22 96/54 100 Simple Mask 6.0 06/10/17 08:00 98.0 54 20 158/95 99 06/10/17 07:45 89 18 99 Nasal Cannula 4.0 06/10/17 07:40 99 Nasal Cannula 4.0 36 06/10/17 07:40 68 18 99 Nasal Cannula 4.0 06/10/17 07:40 Nasal Cannula 4.0 36 06/10/17 04:16 100 Nasal Cannula 4.0 06/10/17 04:13 98.8 73 20 129/79 100 Nasal Cannula 06/10/17 02:15 88 18 99 Nasal Cannula 4.0 06/10/17 02:09 82 18 96 Nasal Cannula 4.0 06/10/17 00:00 97.9 65 20 132/73 100 06/10/17 00:00 100 Nasal Cannula 4.0 06/09/17 20:15 82 18 99 Nasal Cannula 4.0 06/09/17 20:08 76 18 95 Nasal Cannula 4.0 06/09/17 20:08 97 Nasal Cannula 4.0 36 06/09/17 20:08 Nasal Cannula 4.0 36 06/09/17 20:00 99 Nasal Cannula 4.0 06/09/17 20:00 98.8 80 21 133/85 99 06/09/17 16:00 97.5 76 20 119/73 100 06/09/17 13:58 88 18 99 Nasal Cannula 4.0 06/09/17 13:51 86 18 97 Nasal Cannula 4.0 06/09/17 12:00 97.7 63 20 144/93 98 Intake and Output 06/09/17 06/10/17 19:00 07:00 Intake Total 300 ml Output Total 500 ml Balance 300 ml -500 ml Intake Oral 300 ml Output Urine Total 500 ml # Voids 5 2 # Bowel Movements 1 Laboratory Tests Test 06/10/17 04:50 White Blood Count 2.9 K/UL (4.8-10.8) L Red Blood Count 2.92 M/UL (4.70-6.10) L Hemoglobin 8.6 G/DL (14.2-18.0) L Hematocrit 27.0 % (42.0-52.0) L Mean Corpuscular Volume 92 FL (80-99) Mean Corpuscular Hemoglobin 29.6 PG (27.0-31.0) Mean Corpuscular Hemoglobin Concent 32.1 G/DL (32.0-36.0) Red Cell Distribution Width 13.5 % (11.6-14.8) Platelet Count 291 K/UL (150-450) Mean Platelet Volume 7.0 FL (6.5-10.1) Neutrophils (%) (Auto) % (45.0-75.0) Lymphocytes (%) (Auto) % (20.0-45.0) Monocytes (%) (Auto) % (1.0-10.0) Eosinophils (%) (Auto) % (0.0-3.0) Basophils (%) (Auto) % (0.0-2.0) Differential Total Cells Counted 100 Neutrophils % (Manual) 90 % (45-75) H Lymphocytes % (Manual) 8 % (20-45) L Monocytes % (Manual) 1 % (1-10) Eosinophils % (Manual) 1 % (0-3) Basophils % (Manual) 0 % (0-2) Band Neutrophils 0 % (0-8) Platelet Estimate Adequate Platelet Morphology Normal Hypochromasia 1+ Erythrocyte Sedimentation Rate 126 MM/HR (0-15) H Sodium Level 136 MMOL/L (136-145) Potassium Level 3.2 MMOL/L (3.5-5.1) L Chloride Level 98 MMOL/L (98-107) Carbon Dioxide Level 38 MMOL/L (21-32) H Anion Gap 0 mmol/L (5-15) L Blood Urea Nitrogen 14 mg/dL (7-18) Creatinine 0.5 MG/DL (0.55-1.30) L Estimat Glomerular Filtration Rate > 60 mL/min (>60) Glucose Level 76 MG/DL (74-106) Calcium Level 7.0 MG/DL (8.5-10.1) L Total Bilirubin 0.3 MG/DL (0.2-1.0) Aspartate Amino Transf (AST/SGOT) 34 U/L (15-37) Alanine Aminotransferase (ALT/SGPT) 39 U/L (12-78) Alkaline Phosphatase 181 U/L (46-116) H C-Reactive Protein, Quantitative 6.5 mg/dL (0.00-0.90) H Total Protein 7.8 G/DL (6.4-8.2) Albumin 1.0 G/DL (3.4-5.0) L Globulin 6.8 g/dL Albumin/Globulin Ratio 0.1 (1.0-2.7) L Height (Feet): 5 Height (Inches): 10.00 Weight (Pounds): 90 General Appearance: WD/WN, no apparent distress, alert Cardiovascular: normal rate Respiratory/Chest: normal breath sounds, no respiratory distress Abdominal Exam: normal bowel sounds, non tender, soft Extremities: normal range of motion, non-tender Alyssa Felix N.PDenise Jun 10, 2017 10:55
--- NOTE | 2017-06-10 11:39 | Anethesia Preoperative Eval ---
Anesthesia Pre-op PMH/ROS General Date of Evaluation: Jun 10, 2017 Time of Evaluation: 09:40 Anesthesiologist: Rodriguez ASA Score: ASA 4 Mallampati Score Class I : Soft palate, uvula, fauces, pillars visible Class II: Soft palate, uvula, fauces visible Class III: Soft palate, base of uvula visible Class IV: Only hard plate visible Mallampati Classification: Class III Surgeon: Yasir Diagnosis: Pneumonia Surgical Procedure: bRONCHOSCOPY Anesthesia History: none Social History: smoking - h/o, alcohol use - h/o Allergies: Coded Allergies: No Known Allergies (Unverified , 05/23/17) Medications: see eMAR Past Medical History Cardiovascular: Denies: HTN, CAD, [place], valve dz, arrhythmia, other Pulmonary: Reports: other - persistent cough dyspnea, Denies: asthma, COPD, GABBI Gastrointestinal/Genitourinary: Reports: GERD, other - recurrent diarhhea, Denies: CRI, ESRD Neurologic/Psychiatric: Reports: depression/anxiety, Denies: dementia, CVA, TIA, other Endocrine: Denies: DM, hypothyroidism, steroids, other HEENT: Denies: cataract (L), cataract (R), glaucoma, [place] (L), [place] (R), other Hematology/Immune: Reports: anemia, Denies: DVT, bleeding disorder, other Musculoskeletal/Integumentary: Denies: OA, RA, DJD, DDD, edema, other Other: other - severly malnourished PMH Narrative: as above PSxH Narrative: see H&P Anesthesia Pre-op Phys. Exam Physician Exam Last Vital Signs Date Time Temp Pulse Resp B/P (MAP) Pulse Ox O2 Delivery O2 Flow Rate FiO2 06/10/17 11:26 98.0 92 23 112/82 100 Nasal Cannula 3.0 06/10/17 07:40 36 Constitutional: NAD, other Neurologic: CN 2-12 intact Cardiovascular: RRR Respiratory: other - diminished breath sounds bilaterally Gastrointestinal: S/NT/ND Airway Exam Mallampati Score: Class III MO: limited Neck: stiff ROM: limited Teeth: missing Dentures: no upper, no lower Anesthesia Pre-op A/P Labs Hematology Test 06/10/17 04:50 White Blood Count 2.9 K/UL (4.8-10.8) L Red Blood Count 2.92 M/UL (4.70-6.10) L Hemoglobin 8.6 G/DL (14.2-18.0) L Hematocrit 27.0 % (42.0-52.0) L Mean Corpuscular Volume 92 FL (80-99) Mean Corpuscular Hemoglobin 29.6 PG (27.0-31.0) Mean Corpuscular Hemoglobin Concent 32.1 G/DL (32.0-36.0) Red Cell Distribution Width 13.5 % (11.6-14.8) Platelet Count 291 K/UL (150-450) Mean Platelet Volume 7.0 FL (6.5-10.1) Neutrophils (%) (Auto) % (45.0-75.0) Lymphocytes (%) (Auto) % (20.0-45.0) Monocytes (%) (Auto) % (1.0-10.0) Eosinophils (%) (Auto) % (0.0-3.0) Basophils (%) (Auto) % (0.0-2.0) Differential Total Cells Counted 100 Neutrophils % (Manual) 90 % (45-75) H Lymphocytes % (Manual) 8 % (20-45) L Monocytes % (Manual) 1 % (1-10) Eosinophils % (Manual) 1 % (0-3) Basophils % (Manual) 0 % (0-2) Band Neutrophils 0 % (0-8) Platelet Estimate Adequate Platelet Morphology Normal Hypochromasia 1+ Erythrocyte Sedimentation Rate 126 MM/HR (0-15) H Chemistry Test 06/10/17 04:50 Sodium Level 136 MMOL/L (136-145) Potassium Level 3.2 MMOL/L (3.5-5.1) L Chloride Level 98 MMOL/L (98-107) Carbon Dioxide Level 38 MMOL/L (21-32) H Anion Gap 0 mmol/L (5-15) L Blood Urea Nitrogen 14 mg/dL (7-18) Creatinine 0.5 MG/DL (0.55-1.30) L Estimat Glomerular Filtration Rate > 60 mL/min (>60) Glucose Level 76 MG/DL (74-106) Calcium Level 7.0 MG/DL (8.5-10.1) L Total Bilirubin 0.3 MG/DL (0.2-1.0) Aspartate Amino Transf (AST/SGOT) 34 U/L (15-37) Alanine Aminotransferase (ALT/SGPT) 39 U/L (12-78) Alkaline Phosphatase 181 U/L (46-116) H C-Reactive Protein, Quantitative 6.5 mg/dL (0.00-0.90) H Total Protein 7.8 G/DL (6.4-8.2) Albumin 1.0 G/DL (3.4-5.0) L Globulin 6.8 g/dL Albumin/Globulin Ratio 0.1 (1.0-2.7) L Studies Pre-op Studies: EKG - SR Risk Assessment & Plan Assessment: ASA 4 Plan: GA with ETT Status Change Before Surgery: No Pre-Antibiotics Drug: as scheduled DEIRDRE KAISER M.D. Jun 10, 2017 11:39
--- NOTE | 2017-06-10 11:40 | Immediate Post-Op Evaluation ---
Immediate Post-Op Evalulation Immediate Post-Op Evalulation Procedure: Brobnchoscopy Date of Evaluation: Jun 10, 2017 Time of Evaluation: 10:55 IV Fluids: 300 Blood Products: none Estimated Blood Loss: none Urinary Output: none Blood Pressure Systolic: 96 Blood Pressure Diastolic: 58 Pulse Rate: 89 Respiratory Rate: 22 O2 Sat by Pulse Oximetry: 99 Temperature (Fahrenheit): 97.4 Pain Score (1-10): 1 Nausea: No Vomiting: No Complications none Patient Status: reacts, patent, extubated, none Hydration Status: adequate DEIRDRE KAISER M.D. Jun 10, 2017 11:40
--- NOTE | 2017-06-10 12:24 | Infectious Diseases Prog Note ---
Assessment/Plan Assessment/Plan ASSESSMENT: The patient is a 41-year-old male with Weight loss Intermittent low grade fevers- improving Pneumonia. . Sp Cx : MSSA SP Rx CT of Abd /Bilateral pulmonary alveolar infiltrates consistent with pneumonia. AFBx 3 : Neg ( 3rd from 05/26 not in EMR ) now AFB Cx 05/25 : +ve growth ( m/l atypical Mycobacterium ? real vs contaminant) MTB PCR : Neg T Spot : neg Crytpo and blastomycosis: JOHANNA Neg ; RF + histo : did not resulted due lab issues CT: Extensive interstitial and airspace parenchymal disease, and honeycomb appearance of much of the lower lobe and right middle lobe interstitial component, ? HIV: first test negative repeat ( prelim +ve ) Chronic diarrhea resolved, Stool for ova and parasite ( ? sent ) stool Cx : neg ? pancreatic insufficiency due to chronic alcohol abuse Elevated ESR , CRP and RF JOHANNA : neg Leukopenia probable non ID ch lung disease Anemia and leukopenia PLAN: pt has improved overall , CT improved , but if pt worsen may start pt on Bactrim for possible PCP monitor pt off of AB Rx 06/05 SP Ancef d# 10 / 10 05/30 SP Zithromax d# 5 / 5 06/01 SP ( refusing) Flagyl d# 46 05/27 SP vancomycin, cefepime d# 5, Monitor CBC/CMP Serology (coccidio , reordered ) GI following for the patient's chronic diarrhea. possible lung Bx and Bronch as per Pul -send tissue for path, bacterial, fungal and AFB cx hem following , ( pt may need bone marrow ) f/u HIV PCR, CD4 repeat AFB sp and MTB PCR legionella ag and histoplasma ag uribne AFB DNA probe ( MAC , TB ) airborne iso Fungal and AFB blood Cx Subjective Allergies: Coded Allergies: No Known Allergies (Unverified , 05/23/17) Subjective afebrile in >36hrs mild leukopenia awaiting ID AFB sp cx Objective Vital Signs Last 24 Hour Vital Signs Date Time Temp Pulse Resp B/P (MAP) Pulse Ox O2 Delivery O2 Flow Rate FiO2 06/10/17 11:40 89 22 99 06/10/17 11:26 98.0 92 23 112/82 100 Nasal Cannula 3.0 06/10/17 11:20 98 24 111/77 100 Nasal Cannula 3.0 06/10/17 11:10 93 20 110/81 100 Simple Mask 6.0 06/10/17 11:05 91 21 106/76 100 Simple Mask 6.0 06/10/17 10:55 95 22 95/63 100 Simple Mask 6.0 06/10/17 10:50 94 21 94/68 100 Simple Mask 6.0 06/10/17 10:48 98.4 95 22 96/54 100 Simple Mask 6.0 06/10/17 08:00 98.0 54 20 158/95 99 06/10/17 07:45 89 18 99 Nasal Cannula 4.0 06/10/17 07:40 99 Nasal Cannula 4.0 36 06/10/17 07:40 68 18 99 Nasal Cannula 4.0 06/10/17 07:40 Nasal Cannula 4.0 36 06/10/17 04:16 100 Nasal Cannula 4.0 06/10/17 04:13 98.8 73 20 129/79 100 Nasal Cannula 06/10/17 02:15 88 18 99 Nasal Cannula 4.0 06/10/17 02:09 82 18 96 Nasal Cannula 4.0 06/10/17 00:00 97.9 65 20 132/73 100 06/10/17 00:00 100 Nasal Cannula 4.0 06/09/17 20:15 82 18 99 Nasal Cannula 4.0 06/09/17 20:08 76 18 95 Nasal Cannula 4.0 06/09/17 20:08 97 Nasal Cannula 4.0 36 06/09/17 20:08 Nasal Cannula 4.0 36 06/09/17 20:00 99 Nasal Cannula 4.0 06/09/17 20:00 98.8 80 21 133/85 99 06/09/17 16:00 97.5 76 20 119/73 100 06/09/17 13:58 88 18 99 Nasal Cannula 4.0 06/09/17 13:51 86 18 97 Nasal Cannula 4.0 Height (Feet): 5 Height (Inches): 10.00 Weight (Pounds): 90 Objective General Appearance: no acute distress, cachetic HEENT: normocephalic, atraumatic, mucous membranes moist Respiratory/Chest: chest wall non-tender, rhonchi - scattered but with improved air movement Cardiovascular: normal peripheral pulses, regular rhythm, regularly irregular Abdomen: normal bowel sounds, soft, non tender, no organomegaly, non distended Extremities: no cyanosis, no clubbing, no edema Laboratory Tests Test 06/10/17 04:50 White Blood Count 2.9 K/UL (4.8-10.8) L Red Blood Count 2.92 M/UL (4.70-6.10) L Hemoglobin 8.6 G/DL (14.2-18.0) L Hematocrit 27.0 % (42.0-52.0) L Mean Corpuscular Volume 92 FL (80-99) Mean Corpuscular Hemoglobin 29.6 PG (27.0-31.0) Mean Corpuscular Hemoglobin Concent 32.1 G/DL (32.0-36.0) Red Cell Distribution Width 13.5 % (11.6-14.8) Platelet Count 291 K/UL (150-450) Mean Platelet Volume 7.0 FL (6.5-10.1) Neutrophils (%) (Auto) % (45.0-75.0) Lymphocytes (%) (Auto) % (20.0-45.0) Monocytes (%) (Auto) % (1.0-10.0) Eosinophils (%) (Auto) % (0.0-3.0) Basophils (%) (Auto) % (0.0-2.0) Differential Total Cells Counted 100 Neutrophils % (Manual) 90 % (45-75) H Lymphocytes % (Manual) 8 % (20-45) L Monocytes % (Manual) 1 % (1-10) Eosinophils % (Manual) 1 % (0-3) Basophils % (Manual) 0 % (0-2) Band Neutrophils 0 % (0-8) Platelet Estimate Adequate Platelet Morphology Normal Hypochromasia 1+ Erythrocyte Sedimentation Rate 126 MM/HR (0-15) H Sodium Level 136 MMOL/L (136-145) Potassium Level 3.2 MMOL/L (3.5-5.1) L Chloride Level 98 MMOL/L (98-107) Carbon Dioxide Level 38 MMOL/L (21-32) H Anion Gap 0 mmol/L (5-15) L Blood Urea Nitrogen 14 mg/dL (7-18) Creatinine 0.5 MG/DL (0.55-1.30) L Estimat Glomerular Filtration Rate > 60 mL/min (>60) Glucose Level 76 MG/DL (74-106) Calcium Level 7.0 MG/DL (8.5-10.1) L Total Bilirubin 0.3 MG/DL (0.2-1.0) Aspartate Amino Transf (AST/SGOT) 34 U/L (15-37) Alanine Aminotransferase (ALT/SGPT) 39 U/L (12-78) Alkaline Phosphatase 181 U/L (46-116) H C-Reactive Protein, Quantitative 6.5 mg/dL (0.00-0.90) H Total Protein 7.8 G/DL (6.4-8.2) Albumin 1.0 G/DL (3.4-5.0) L Globulin 6.8 g/dL Albumin/Globulin Ratio 0.1 (1.0-2.7) L Current Medications Medications (Trade) Dose Ordered Sig/Anna Route PRN Reason Start Time Stop Time Status Last Admin Dose Admin Acetaminophen (Tylenol) 650 mg Q4H PRN ORAL T>100.5 05/23/17 12:15 06/22/17 12:14 05/29/17 21:16 Albuterol/ Ipratropium (Albuterol/ Ipratropium) 3 ml Q4H PRN HHN Shortness of Breath 06/08/17 13:30 06/13/17 13:29 Albuterol/ Ipratropium (Albuterol/ Ipratropium) 3 ml Q6HRT HHN 06/08/17 19:00 06/13/17 18:59 06/10/17 08:13 Dextrose (Dextrose 50%) STAT PRN IV Hypoglycemia 05/23/17 12:15 06/22/17 12:14 Divalproex Sodium (Depakote ER) 1,000 mg EVERY 12 HOURS ORAL 05/29/17 09:00 06/28/17 08:59 06/03/17 22:07 Docusate Sodium (Colace) 100 mg TWICE A DAY ORAL 06/08/17 18:00 07/08/17 17:59 Fluoxetine HCl (PROzac) 20 mg DAILY ORAL 05/27/17 09:00 06/26/17 08:59 06/06/17 08:35 Folic Acid (Folate) 1 mg DAILY ORAL 05/27/17 09:00 06/26/17 08:59 06/04/17 10:08 Heparin Sodium (Porcine) (Heparin 5000 units/ml) 5,000 units EVERY 12 HOURS SUBQ 05/23/17 21:00 06/22/17 20:59 06/07/17 21:13 Lactulose (Cephulac) 10 gm THREE TIMES A DAY ORAL 06/08/17 13:00 07/08/17 12:59 Multivitamins (Multivitamins) 1 tab DAILY ORAL 05/31/17 09:00 06/30/17 08:59 06/04/17 10:08 Ondansetron HCl (Zofran) 4 mg Q6H PRN IVP Nausea & Vomiting 05/23/17 12:15 06/22/17 12:14 Polyethylene Glycol (Miralax) 17 gm DAILYPRN PRN ORAL Constipation 05/23/17 12:15 06/22/17 12:14 Prednisone (predniSONE) 60 mg DAILY ORAL 06/06/17 21:00 07/06/17 20:59 06/08/17 09:14 Ranitidine HCl (Zantac) 150 mg BEDTIME ORAL 05/26/17 21:00 06/25/17 20:59 06/06/17 21:13 Thiamine HCl (Vitamin B1) 100 mg DAILY ORAL 05/31/17 09:00 06/30/17 08:59 06/03/17 10:09 Haydee Tucker M.D. Jun 10, 2017 12:24
--- NOTE | 2017-06-10 14:29 | 48 Hour Post Anesthesia Eval ---
Post Anesthesia Evaluation Procedure: Brobnchoscopy Date of Evaluation: Jun 10, 2017 Time of Evaluation: 14:27 Blood Pressure Systolic: 118 0: 57 Pulse Rate: 72 Respiratory Rate: 22 Temperature (Fahrenheit): 97.4 O2 Sat by Pulse Oximetry: 98 Airway: patent Nausea: No Vomiting: No Pain Intensity: 2 Hydration Status: adequate Cardiopulmonary Status: stable Mental Status/LOC: patient returned to baseline Follow-up Care/Observations: n/a Post-Anesthesia Complications: none Follow-up care needed: N/A DEIRDRE KAISER M.D. Jun 10, 2017 14:29
--- NOTE | 2017-06-10 16:46 | General Progress Note ---
Assessment/Plan Assessment/Plan ASSESSMENT/PLAN Leukopenia, could be infectious, currently mild Anemia, watch counts, transfuse if hgb below 7 --> may in future require bone marrow --> ID eval, for HIV status, pending repeat test, pending cd4 count -->Low folate level, continue PO folate Anemia 2/2 folic acid deficiency MSSA PNA Interstitial lung disease acute hypoxemic RF requiring VM severe protein calorie malnutrition diarrhea, better. C. diff negative. GI following alcohol dependence depression Subjective Hematologic/Lymphatic: Reports: anemia Allergies: Coded Allergies: No Known Allergies (Unverified , 05/23/17) All Systems: reviewed and negative except above Subjective afebrile Objective Last 24 Hour Vital Signs Date Time Temp Pulse Resp B/P (MAP) Pulse Ox O2 Delivery O2 Flow Rate FiO2 06/10/17 14:29 72 22 98 06/10/17 13:43 91 18 99 Nasal Cannula 2.0 06/10/17 13:40 80 18 99 Nasal Cannula 2.0 06/10/17 12:00 97.5 88 20 116/79 93 06/10/17 11:40 89 22 99 06/10/17 11:26 98.0 92 23 112/82 100 Nasal Cannula 3.0 06/10/17 11:20 98 24 111/77 100 Nasal Cannula 3.0 06/10/17 11:10 93 20 110/81 100 Simple Mask 6.0 06/10/17 11:05 91 21 106/76 100 Simple Mask 6.0 06/10/17 10:55 95 22 95/63 100 Simple Mask 6.0 06/10/17 10:50 94 21 94/68 100 Simple Mask 6.0 06/10/17 10:48 98.4 95 22 96/54 100 Simple Mask 6.0 06/10/17 08:00 98.0 54 20 158/95 99 06/10/17 07:45 89 18 99 Nasal Cannula 4.0 06/10/17 07:40 99 Nasal Cannula 4.0 36 06/10/17 07:40 68 18 99 Nasal Cannula 4.0 06/10/17 07:40 Nasal Cannula 4.0 36 06/10/17 04:16 100 Nasal Cannula 4.0 06/10/17 04:13 98.8 73 20 129/79 100 Nasal Cannula 06/10/17 02:15 88 18 99 Nasal Cannula 4.0 06/10/17 02:09 82 18 96 Nasal Cannula 4.0 06/10/17 00:00 97.9 65 20 132/73 100 06/10/17 00:00 100 Nasal Cannula 4.0 06/09/17 20:15 82 18 99 Nasal Cannula 4.0 06/09/17 20:08 76 18 95 Nasal Cannula 4.0 06/09/17 20:08 97 Nasal Cannula 4.0 36 06/09/17 20:08 Nasal Cannula 4.0 36 06/09/17 20:00 99 Nasal Cannula 4.0 06/09/17 20:00 98.8 80 21 133/85 99 Intake and Output 06/09/17 06/10/17 19:00 07:00 Intake Total 300 ml Output Total 500 ml Balance 300 ml -500 ml Intake Oral 300 ml Output Urine Total 500 ml # Voids 5 2 # Bowel Movements 1 Laboratory Tests 06/10/17 04:50: White Blood Count 2.9L, Red Blood Count 2.92L, Hemoglobin 8.6L, Hematocrit 27.0L , Mean Corpuscular Volume 92, Mean Corpuscular Hemoglobin 29.6, Mean Corpuscular Hemoglobin Concent 32.1, Red Cell Distribution Width 13.5, Platelet Count 291, Mean Platelet Volume 7.0, Neutrophils (%) (Auto) , Lymphocytes (%) ( Auto) , Monocytes (%) (Auto) , Eosinophils (%) (Auto) , Basophils (%) (Auto) , Differential Total Cells Counted 100, Neutrophils % (Manual) 90H, Lymphocytes % (Manual) 8L, Monocytes % (Manual) 1, Eosinophils % (Manual) 1, Basophils % ( Manual) 0, Band Neutrophils 0, Platelet Estimate Adequate, Platelet Morphology Normal, Hypochromasia 1+, Erythrocyte Sedimentation Rate 126H, Sodium Level 136 , Potassium Level 3.2L, Chloride Level 98, Carbon Dioxide Level 38H, Anion Gap 0L, Blood Urea Nitrogen 14, Creatinine 0.5L, Estimat Glomerular Filtration Rate > 60, Glucose Level 76, Calcium Level 7.0L, Total Bilirubin 0.3, Aspartate Amino Transf (AST/SGOT) 34, Alanine Aminotransferase (ALT/SGPT) 39, Alkaline Phosphatase 181H, C-Reactive Protein, Quantitative 6.5H, Total Protein 7.8, Albumin 1.0L, Globulin 6.8, Albumin/Globulin Ratio 0.1L Height (Feet): 5 Height (Inches): 10.00 Weight (Pounds): 90 General Appearance: no apparent distress EENT: normal ENT inspection Neck: normal alignment Cardiovascular: normal peripheral pulses Abdomen: normal bowel sounds 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
[2017-06-11] VITALS: BP 132/80
--- NOTE | 2017-06-11 00:09 | Diagnostic Imaging Report ---
APPROVED REPORT CPT Code: 62004 Present Symptoms Comments: R/O DVT BILATERAL: Imaging reveals a patent deep venous system bilaterally. There is no evidence of thrombus within the femoral, popliteal or tibial segments. The greater saphenous veins are also within normal limits. Doppler indicates normal spontaneous flow within these segments.
[2017-06-11] MEDS: Albuterol/Ipratropium 3ml neb HHN SCH ×4 (01:08→19:45)
[2017-06-11 04:00] VITALS: BP 140/92
[2017-06-11 08:00] VITALS: BP 105/74
[2017-06-11] MEDS: Heparin 5000 units/ml inj SUBQ SCH ×2 (09:00→22:10)
--- NOTE | 2017-06-11 09:19 | Pulmonology Progress Note ---
Assessment/Plan Assessment/Plan ASSESSMENT MSSA PNA Interstitial lung disease acute hypoxemic RF requiring VM -resolved s/p bronchoscopy 06/10 HIV disease positive AFB 1/2 ? PCR severe protein calorie malnutrition diarrhea alcohol dependence depression PLAN OF CARE MS floor respiratory isolation supplemental O2 titrate O2 to keep sat above 92%, pulmonary toilet sputum AFB x 3 ( 2 smear negative, but one cx + AFB) PPD negative , MTB PCR negative CT chest noted c/w ILD sputum + Staph aureus , repeated sputum cx negative s/p abx, ID follows now 1/2 AFB +some activity ID follows per ID keep off abx, if worsen - then will start Bactrim first rapid HIV test negative , repeated rapid HIV test preliminary positive CD4 count pending LDH elevated started on steroids and clinically with some improvement, very slow taper DFA pending ? PCR ID ( dr Patel) prefer to hold off Bactrim since improving with steroids 1/2 AFB with activity ? ? JERRY? actinomycosis? nocardia s/p Bronchoscopy with bronchoalveolar lavage, s/p BAL BLL with findings of :Bilateral lung infiltrates, Friable mucosa but no active bleeding, Mild mucoid secretions, Normal endobronchial anatomy to subsegmental bronchi f/up with biopsy results per ID : reordered cocci Serology f/u HIV PCR, CD4 count repeat AFB sp and MTB PCR legionella Ag and histoplasma Ag urine AFB DNA probe ( MAC , TB ) continue airborne isolation Fungal and AFB blood Cx repeat ESR,CRP give additional K today heme following , ( pt may need bone marrow ) venous Duplex BLE negative psych follows, optimized psych med regimen Diarrhea resolved GI following for the patient's chronic diarrhea. 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 DVT, GI prophylaxis case discussed and evaluated by supervising physician Subjective Allergies: Coded Allergies: No Known Allergies (Unverified , 05/23/17) Subjective afebrile, no leukocytosis diarrhea resolved + intermittent dry cough, no hemoptysis, + weakness weaned from VM down to O2 via NC , however prefers to wear VM s/p bronch 06/10 overall with some improvement clinically Objective Last 24 Hour Vital Signs Date Time Temp Pulse Resp B/P (MAP) Pulse Ox O2 Delivery O2 Flow Rate FiO2 06/11/17 08:22 90 18 92 Nasal Cannula 2.0 06/11/17 08:22 Nasal Cannula 2.0 06/11/17 08:21 92 Nasal Cannula 2.0 06/11/17 08:13 84 20 90 Nasal Cannula 2.0 06/11/17 08:00 96.4 80 18 105/74 100 06/11/17 04:00 98.9 62 18 140/92 99 06/11/17 01:25 90 18 99 Nasal Cannula 2.0 06/11/17 01:08 82 20 97 Nasal Cannula 2.0 06/11/17 00:00 83 16 132/80 100 06/10/17 21:40 88 18 99 Nasal Cannula 2.0 06/10/17 20:32 Nasal Cannula 4.0 36 06/10/17 20:32 99 Nasal Cannula 4.0 36 06/10/17 20:32 75 18 99 Nasal Cannula 2.0 06/10/17 20:00 99.7 89 18 130/88 99 06/10/17 14:29 72 22 98 06/10/17 13:43 91 18 99 Nasal Cannula 2.0 06/10/17 13:40 80 18 99 Nasal Cannula 2.0 06/10/17 12:00 97.5 88 20 116/79 93 06/10/17 11:40 89 22 99 06/10/17 11:26 98.0 92 23 112/82 100 Nasal Cannula 3.0 06/10/17 11:20 98 24 111/77 100 Nasal Cannula 3.0 06/10/17 11:10 93 20 110/81 100 Simple Mask 6.0 06/10/17 11:05 91 21 106/76 100 Simple Mask 6.0 06/10/17 10:55 95 22 95/63 100 Simple Mask 6.0 06/10/17 10:50 94 21 94/68 100 Simple Mask 6.0 06/10/17 10:48 98.4 95 22 96/54 100 Simple Mask 6.0 Intake and Output 06/10/17 06/11/17 19:00 07:00 Intake Total 660 ml 250 ml Output Total 10 ml 950 ml Balance 650 ml -700 ml Intake Oral 360 ml 250 ml IV Total 300 ml Output Urine Total 950 ml Estimated Blood Loss 10 ml # Voids 3 # Bowel Movements 1 1 Objective General Appearance: no acute distress, cachetic, A/A/O x 3 male HEENT: normocephalic, atraumatic, anicteric, mucous membranes moist, aO2-4L via NC Respiratory/Chest: few scattered rhonchi with moderate air exchange , no respiratory distress, no accessory muscle use Cardiovascular: normal rate Abdomen: normal bowel sounds, soft, non tender Extremities: no edema, pedal pulses normal Neurologic/Psychiatric: alert, oriented x 3, responsive Musculoskeletal: normal muscle bulk Current Medications Medications (Trade) Dose Ordered Sig/Anna Route PRN Reason Start Time Stop Time Status Last Admin Dose Admin Acetaminophen (Tylenol) 650 mg Q4H PRN ORAL T>100.5 05/23/17 12:15 06/22/17 12:14 05/29/17 21:16 Albuterol/ Ipratropium (Albuterol/ Ipratropium) 3 ml Q4H PRN N Shortness of Breath 06/08/17 13:30 06/13/17 13:29 Albuterol/ Ipratropium (Albuterol/ Ipratropium) 3 ml Q6HRT N 06/08/17 19:00 06/13/17 18:59 06/11/17 08:13 Dextrose (Dextrose 50%) STAT PRN IV Hypoglycemia 05/23/17 12:15 06/22/17 12:14 Divalproex Sodium (Depakote ER) 1,000 mg EVERY 12 HOURS ORAL 05/29/17 09:00 06/28/17 08:59 06/03/17 22:07 Docusate Sodium (Colace) 100 mg TWICE A DAY ORAL 06/08/17 18:00 07/08/17 17:59 Fluoxetine HCl (PROzac) 20 mg DAILY ORAL 05/27/17 09:00 06/26/17 08:59 06/06/17 08:35 Folic Acid (Folate) 1 mg DAILY ORAL 05/27/17 09:00 06/26/17 08:59 06/10/17 12:50 Heparin Sodium (Porcine) (Heparin 5000 units/ml) 5,000 units EVERY 12 HOURS SUBQ 05/23/17 21:00 06/22/17 20:59 06/07/17 21:13 Lactulose (Cephulac) 10 gm THREE TIMES A DAY ORAL 06/08/17 13:00 07/08/17 12:59 Multivitamins (Multivitamins) 1 tab DAILY ORAL 05/31/17 09:00 06/30/17 08:59 06/10/17 12:50 Ondansetron HCl (Zofran) 4 mg Q6H PRN IVP Nausea & Vomiting 05/23/17 12:15 06/22/17 12:14 Polyethylene Glycol (Miralax) 17 gm DAILYPRN PRN ORAL Constipation 05/23/17 12:15 06/22/17 12:14 Prednisone (predniSONE) 60 mg DAILY ORAL 06/06/17 21:00 07/06/17 20:59 06/10/17 12:48 Ranitidine HCl (Zantac) 150 mg BEDTIME ORAL 05/26/17 21:00 06/25/17 20:59 06/06/17 21:13 Thiamine HCl (Vitamin B1) 100 mg DAILY ORAL 05/31/17 09:00 06/30/17 08:59 06/10/17 12:51 [facility]St[facility]Analy Holley NP Jun 11, 2017 09:19
[2017-06-11] MEDS ORDERED: Albuterol/Ipratropium 3ml neb HHN PRN (09:30)
[2017-06-11 09:51] LABS: HEMATOCRIT 28.8 % (42.0-52.0); HEMOGLOBIN 9.2 G/DL (14.2-18.0); MEAN CORPUSCULAR VOLUME 92 FL (80-99); PLATELET COUNT 333 K/UL (150-450); RED BLOOD COUNT 3.14 M/UL (4.70-6.10); RED CELL DISTRIBUTION WIDTH 13.3 % (11.6-14.8); WHITE BLOOD COUNT 3.1 K/UL (4.8-10.8)
[2017-06-11] MEDS: Docusate 100mg cap ORAL SCH ×2 (10:03→17:52)
[2017-06-11 10:05] LABS: ANION GAP 3 mmol/L (5-15); BLOOD UREA NITROGEN 14 mg/dL (7-18); CARBON DIOXIDE 34 MMOL/L (21-32); CHLORIDE 100 MMOL/L (98-107); CREATININE 0.5 MG/DL (0.55-1.30); POTASSIUM 3.3 MMOL/L (3.5-5.1); SODIUM 137 MMOL/L (136-145)
[2017-06-11] MEDS: Thiamine 100mg tab ORAL SCH (10:05)
[2017-06-11] MEDS: Depakote ER 500mg tab ORAL SCH ×2 (10:05→21:00)
[2017-06-11] MEDS: Lactulose 10gm/15ml UDC ORAL SCH ×3 (10:05→17:51)
--- NOTE | 2017-06-11 11:17 | Infectious Diseases Prog Note ---
Assessment/Plan Assessment/Plan ASSESSMENT: The patient is a 41-year-old male with Weight loss Intermittent low grade fevers- improving Pneumonia. . Sp Cx : MSSA SP Rx - s/p Bronchoscopy 06/10: friable mucosa, mild mucoid secretions; cx sent CT of Abd /Bilateral pulmonary alveolar infiltrates consistent with pneumonia.- patient not hypoxic, not febrile- lower suspicion PCP AFBx 3 : Neg ( 3rd from 05/26 not in EMR ) now AFB Cx 05/25 : +ve growth ( m/l atypical Mycobacterium ? real vs contaminant) MTB PCR : Neg T Spot : neg Crytpo and blastomycosis: JOHANNA Neg ; RF + histo ab : neg CT: Extensive interstitial and airspace parenchymal disease, and honeycomb appearance of much of the lower lobe and right middle lobe interstitial component, HIV: first test negative repeat, repeat +; awaiting VL and CD4 Chronic diarrhea resolved, now constipated Stool for ova and parasite ( ? sent ) stool Cx : neg ? pancreatic insufficiency due to chronic alcohol abuse Elevated ESR , CRP and RF JOHANNA : neg Leukopenia probable non ID ch lung disease Anemia and leukopenia PLAN: monitor pt off of AB Rx pt has improved overall , CT improved , but if pt worsen may start pt on Bactrim for possible PCP 06/05 SP Ancef d# 10 / 10 05/30 SP Zithromax d# 5 / 5 06/01 SP ( refusing) Flagyl d# 46 05/27 SP vancomycin, cefepime d# 5, -f/u BAL cx (bacterial,f ungal, AFB, MTB PCR, PCP DFA) Monitor CBC/CMP Serology (coccidio , reordered ) possible lung Bx as per Pul -send tissue for path, bacterial, fungal and AFB cx hem following , ( pt may need bone marrow ) f/u HIV PCR (reordered), CD4 repeat AFB sp and MTB PCR and check Hep serologies , RPR, GC/CL, HLA b 27 and HIV genotype f/ulegionella ag and histoplasma ag uribne AFB DNA probe ( MAC , TB ) airborne iso Fungal and AFB blood Cx Subjective Allergies: Coded Allergies: No Known Allergies (Unverified , 05/23/17) Subjective afebrile in >48hrs mild leukopenia awaiting ID AFB sp cx repeat HIV test +, VL was not drawn Objective Vital Signs Last 24 Hour Vital Signs Date Time Temp Pulse Resp B/P (MAP) Pulse Ox O2 Delivery O2 Flow Rate FiO2 06/11/17 08:22 90 18 92 Nasal Cannula 2.0 06/11/17 08:22 Nasal Cannula 2.0 06/11/17 08:21 92 Nasal Cannula 2.0 06/11/17 08:13 84 20 90 Nasal Cannula 2.0 06/11/17 08:00 96.4 80 18 105/74 100 06/11/17 04:00 98.9 62 18 140/92 99 06/11/17 01:25 90 18 99 Nasal Cannula 2.0 06/11/17 01:08 82 20 97 Nasal Cannula 2.0 06/11/17 00:00 83 16 132/80 100 06/10/17 21:40 88 18 99 Nasal Cannula 2.0 06/10/17 20:32 Nasal Cannula 4.0 36 06/10/17 20:32 99 Nasal Cannula 4.0 36 06/10/17 20:32 75 18 99 Nasal Cannula 2.0 06/10/17 20:00 99.7 89 18 130/88 99 06/10/17 14:29 72 22 98 06/10/17 13:43 91 18 99 Nasal Cannula 2.0 06/10/17 13:40 80 18 99 Nasal Cannula 2.0 06/10/17 12:00 97.5 88 20 116/79 93 06/10/17 11:40 89 22 99 06/10/17 11:26 98.0 92 23 112/82 100 Nasal Cannula 3.0 06/10/17 11:20 98 24 111/77 100 Nasal Cannula 3.0 Height (Feet): 5 Height (Inches): 10.00 Weight (Pounds): 90 Objective General Appearance: no acute distress, cachetic HEENT: normocephalic, atraumatic, mucous membranes moist Respiratory/Chest: chest wall non-tender, rhonchi - scattered but with improved air movement Cardiovascular: normal peripheral pulses, regular rhythm, regularly irregular Abdomen: normal bowel sounds, soft, non tender, no organomegaly, non distended Extremities: no cyanosis, no clubbing, no edema Laboratory Tests Test 06/11/17 09:00 White Blood Count 3.1 K/UL (4.8-10.8) L Red Blood Count 3.14 M/UL (4.70-6.10) L Hemoglobin 9.2 G/DL (14.2-18.0) L Hematocrit 28.8 % (42.0-52.0) L Mean Corpuscular Volume 92 FL (80-99) Mean Corpuscular Hemoglobin 29.4 PG (27.0-31.0) Mean Corpuscular Hemoglobin Concent 31.9 G/DL (32.0-36.0) L Red Cell Distribution Width 13.3 % (11.6-14.8) Platelet Count 333 K/UL (150-450) Mean Platelet Volume 6.8 FL (6.5-10.1) Neutrophils (%) (Auto) % (45.0-75.0) Lymphocytes (%) (Auto) % (20.0-45.0) Monocytes (%) (Auto) % (1.0-10.0) Eosinophils (%) (Auto) % (0.0-3.0) Basophils (%) (Auto) % (0.0-2.0) Lymphocytes Pending Sodium Level 137 MMOL/L (136-145) Potassium Level 3.3 MMOL/L (3.5-5.1) L Chloride Level 100 MMOL/L (98-107) Carbon Dioxide Level 34 MMOL/L (21-32) H Anion Gap 3 mmol/L (5-15) L Blood Urea Nitrogen 14 mg/dL (7-18) Creatinine 0.5 MG/DL (0.55-1.30) L Estimat Glomerular Filtration Rate > 60 mL/min (>60) Glucose Level 126 MG/DL (74-106) H Calcium Level 7.0 MG/DL (8.5-10.1) L Magnesium Level 1.2 MG/DL (1.8-2.4) L Immunoglobulin G Pending Immunoglobulin A Pending Immunoglobulin M Pending Immunoglobulin E Pending Percent CD3 Cells Pending Absolute CD3 Count Pending Percent CD4 Cells Pending Absolute CD4 Count Pending T-Lymphocyte CD4/CD8 Ratio Pending Percent CD8 Cells Pending Absolute CD8 Count Pending Current Medications Medications (Trade) Dose Ordered Sig/Anna Route PRN Reason Start Time Stop Time Status Last Admin Dose Admin Acetaminophen (Tylenol) 650 mg Q4H PRN ORAL T>100.5 05/23/17 12:15 06/22/17 12:14 05/29/17 21:16 Albuterol/ Ipratropium (Albuterol/ Ipratropium) 3 ml Q4H PRN HHN Shortness of Breath 06/11/17 09:30 06/16/17 23:59 Albuterol/ Ipratropium (Albuterol/ Ipratropium) 3 ml Q6HRT HHN 06/11/17 13:00 06/16/17 23:59 Dextrose (Dextrose 50%) STAT PRN IV Hypoglycemia 05/23/17 12:15 06/22/17 12:14 Divalproex Sodium (Depakote ER) 1,000 mg EVERY 12 HOURS ORAL 05/29/17 09:00 06/28/17 08:59 06/11/17 10:05 Docusate Sodium (Colace) 100 mg TWICE A DAY ORAL 06/08/17 18:00 07/08/17 17:59 06/11/17 10:03 Fluoxetine HCl (PROzac) 20 mg DAILY ORAL 05/27/17 09:00 06/26/17 08:59 06/11/17 10:04 Folic Acid (Folate) 1 mg DAILY ORAL 05/27/17 09:00 06/26/17 08:59 06/11/17 10:04 Heparin Sodium (Porcine) (Heparin 5000 units/ml) 5,000 units EVERY 12 HOURS SUBQ 05/23/17 21:00 06/22/17 20:59 06/07/17 21:13 Lactulose (Cephulac) 10 gm THREE TIMES A DAY ORAL 06/08/17 13:00 07/08/17 12:59 06/11/17 10:05 Multivitamins (Multivitamins) 1 tab DAILY ORAL 05/31/17 09:00 06/30/17 08:59 06/11/17 10:04 Ondansetron HCl (Zofran) 4 mg Q6H PRN IVP Nausea & Vomiting 05/23/17 12:15 06/22/17 12:14 Polyethylene Glycol (Miralax) 17 gm DAILYPRN PRN ORAL Constipation 05/23/17 12:15 06/22/17 12:14 Prednisone (predniSONE) 50 mg DAILY ORAL 06/12/17 09:00 07/12/17 08:59 Ranitidine HCl (Zantac) 150 mg BEDTIME ORAL 05/26/17 21:00 06/25/17 20:59 06/06/17 21:13 Thiamine HCl (Vitamin B1) 100 mg DAILY ORAL 05/31/17 09:00 06/30/17 08:59 06/11/17 10:05 Haydee Tucker M.D. Jun 11, 2017 11:17
--- NOTE | 2017-06-11 11:31 | GI Progress Note ---
Assessment/Plan Problems: (1) Generalized weakness ICD Codes: R53.1 - Weakness SNOMED: 33379876 (2) Anemia ICD Codes: D64.9 - Anemia, unspecified SNOMED: 534190108 (3) Severe protein-calorie malnutrition ICD Codes: E43 - Unspecified severe protein-calorie malnutrition SNOMED: 045812061 (4) Atypical pneumonia ICD Codes: J18.9 - Pneumonia, unspecified organism SNOMED: 579631511 (5) Protein calorie malnutrition ICD Codes: E46 - Unspecified protein-calorie malnutrition SNOMED: 296915979 Qualifiers: Qualified Codes: E44.0 - Moderate protein-calorie malnutrition (6) Diarrhea ICD Codes: R19.7 - Diarrhea, unspecified SNOMED: 13451883 Qualifiers: Qualified Codes: R19.7 - Diarrhea, unspecified Status: unchanged Status Narrative Discussed with Dr. Gamez. Assessment/Plan CT chest reviewed. cdiff negative iron levels unremarkable HIV negative, second test positive airborne r/o TB KUB r/o chronic pancreatitis >> unremarkable OB stool r/o GI bleed >> negative Tissue Transglutaminase IgA r/o celiac >> negative fu pulmonary, oncology recs fu CT>>> fecal impaction>>> bowel regimen, BM yesterday monitor H&H, prn transfusions bowel regime ppi folate PO H2B fu labs Subjective Subjective constipation Objective Last 24 Hour Vital Signs Date Time Temp Pulse Resp B/P (MAP) Pulse Ox O2 Delivery O2 Flow Rate FiO2 06/11/17 08:22 90 18 92 Nasal Cannula 2.0 06/11/17 08:22 Nasal Cannula 2.0 06/11/17 08:21 92 Nasal Cannula 2.0 06/11/17 08:13 84 20 90 Nasal Cannula 2.0 06/11/17 08:00 96.4 80 18 105/74 100 06/11/17 04:00 98.9 62 18 140/92 99 06/11/17 01:25 90 18 99 Nasal Cannula 2.0 06/11/17 01:08 82 20 97 Nasal Cannula 2.0 06/11/17 00:00 83 16 132/80 100 06/10/17 21:40 88 18 99 Nasal Cannula 2.0 06/10/17 20:32 Nasal Cannula 4.0 36 06/10/17 20:32 99 Nasal Cannula 4.0 36 06/10/17 20:32 75 18 99 Nasal Cannula 2.0 06/10/17 20:00 99.7 89 18 130/88 99 06/10/17 14:29 72 22 98 06/10/17 13:43 91 18 99 Nasal Cannula 2.0 06/10/17 13:40 80 18 99 Nasal Cannula 2.0 06/10/17 12:00 97.5 88 20 116/79 93 06/10/17 11:40 89 22 99 Intake and Output 06/10/17 06/11/17 19:00 07:00 Intake Total 660 ml 250 ml Output Total 10 ml 950 ml Balance 650 ml -700 ml Intake Oral 360 ml 250 ml IV Total 300 ml Output Urine Total 950 ml Estimated Blood Loss 10 ml # Voids 3 # Bowel Movements 1 1 Laboratory Tests Test 06/11/17 09:00 White Blood Count 3.1 K/UL (4.8-10.8) L Red Blood Count 3.14 M/UL (4.70-6.10) L Hemoglobin 9.2 G/DL (14.2-18.0) L Hematocrit 28.8 % (42.0-52.0) L Mean Corpuscular Volume 92 FL (80-99) Mean Corpuscular Hemoglobin 29.4 PG (27.0-31.0) Mean Corpuscular Hemoglobin Concent 31.9 G/DL (32.0-36.0) L Red Cell Distribution Width 13.3 % (11.6-14.8) Platelet Count 333 K/UL (150-450) Mean Platelet Volume 6.8 FL (6.5-10.1) Neutrophils (%) (Auto) % (45.0-75.0) Lymphocytes (%) (Auto) % (20.0-45.0) Monocytes (%) (Auto) % (1.0-10.0) Eosinophils (%) (Auto) % (0.0-3.0) Basophils (%) (Auto) % (0.0-2.0) Lymphocytes Pending Sodium Level 137 MMOL/L (136-145) Potassium Level 3.3 MMOL/L (3.5-5.1) L Chloride Level 100 MMOL/L (98-107) Carbon Dioxide Level 34 MMOL/L (21-32) H Anion Gap 3 mmol/L (5-15) L Blood Urea Nitrogen 14 mg/dL (7-18) Creatinine 0.5 MG/DL (0.55-1.30) L Estimat Glomerular Filtration Rate > 60 mL/min (>60) Glucose Level 126 MG/DL (74-106) H Calcium Level 7.0 MG/DL (8.5-10.1) L Magnesium Level 1.2 MG/DL (1.8-2.4) L Immunoglobulin G Pending Immunoglobulin A Pending Immunoglobulin M Pending Immunoglobulin E Pending Percent CD3 Cells Pending Absolute CD3 Count Pending Percent CD4 Cells Pending Absolute CD4 Count Pending T-Lymphocyte CD4/CD8 Ratio Pending Percent CD8 Cells Pending Absolute CD8 Count Pending Height (Feet): 5 Height (Inches): 10.00 Weight (Pounds): 90 General Appearance: WD/WN, no apparent distress, alert, thin Cardiovascular: normal rate Respiratory/Chest: normal breath sounds, no respiratory distress Abdominal Exam: normal bowel sounds, non tender, soft Extremities: normal range of motion, non-tender Alyssa Felix N.P. Jun 11, 2017 11:31
[2017-06-11 12:00] VITALS: BP 110/76
[2017-06-11 15:59] VITALS: BP 129/67
[2017-06-11 20:00] VITALS: BP 130/92
[2017-06-12] VITALS: BP 127/85
[2017-06-12] MEDS: Albuterol/Ipratropium 3ml neb HHN SCH ×4 (00:57→21:47)
[2017-06-12 04:00] VITALS: BP 128/77
[2017-06-12 07:32] LABS: HEMATOCRIT 27.2 % (42.0-52.0); HEMOGLOBIN 8.7 G/DL (14.2-18.0); MEAN CORPUSCULAR VOLUME 90 FL (80-99); PLATELET COUNT 260 K/UL (150-450); RED BLOOD COUNT 3.03 M/UL (4.70-6.10); RED CELL DISTRIBUTION WIDTH 13.3 % (11.6-14.8); WHITE BLOOD COUNT 3.8 K/UL (4.8-10.8)
[2017-06-12 07:38] LABS: ANION GAP 4 mmol/L (5-15); BLOOD UREA NITROGEN 13 mg/dL (7-18); CALCIUM 6.8 MG/DL (8.5-10.1); CARBON DIOXIDE 31 MMOL/L (21-32); CHLORIDE 102 MMOL/L (98-107); CREATININE 0.5 MG/DL (0.55-1.30); POTASSIUM 4.4 MMOL/L (3.5-5.1); SODIUM 137 MMOL/L (136-145)
--- NOTE | 2017-06-12 07:40 | General Progress Note ---
Assessment/Plan Assessment/Plan LATE ENTRY ASSESSMENT/PLAN Leukopenia, improving Anemia, watch counts, transfuse if hgb below 7 -->HIV positive, awaiting CD4 count. ID service folllowing -->Low folate level, continue PO folate Anemia 2/2 folic acid deficiency MSSA PNA Interstitial lung disease acute hypoxemic RF severe protein calorie malnutrition diarrhea, better. C. diff negative. GI following alcohol dependence depression Subjective Date patient seen: Jun 11, 2017 Allergies: Coded Allergies: No Known Allergies (Unverified , 05/23/17) All Systems: reviewed and negative except above Subjective afebrile Objective Last 24 Hour Vital Signs Date Time Temp Pulse Resp B/P (MAP) Pulse Ox O2 Delivery O2 Flow Rate FiO2 06/12/17 05:18 98 18 99 Venturi Mask 8.0 40 06/12/17 05:00 96 20 99 Venturi Mask 8.0 40 06/12/17 04:00 98.2 99 18 128/77 100 06/12/17 00:35 97 18 99 Venturi Mask 8.0 40 06/12/17 00:30 95 20 99 Venturi Mask 8.0 40 06/12/17 00:00 98.6 95 18 127/85 100 06/11/17 20:00 98.2 100 18 130/92 100 06/11/17 19:15 99 Nasal Cannula 8.0 40 06/11/17 19:15 Venturi Mask 8.0 40 06/11/17 19:15 96 18 98 Venturi Mask 8.0 40 06/11/17 19:10 94 18 99 Venturi Mask 8.0 40 06/11/17 15:59 97.7 47 21 129/67 99 06/11/17 13:33 84 18 98 Venturi Mask 14.0 55 06/11/17 13:26 79 20 98 Venturi Mask 14.0 55 06/11/17 12:00 97.0 79 18 110/76 98 06/11/17 08:22 90 18 92 Nasal Cannula 2.0 06/11/17 08:22 Nasal Cannula 2.0 28 06/11/17 08:21 92 Nasal Cannula 2.0 28 06/11/17 08:13 84 20 90 Nasal Cannula 2.0 06/11/17 08:00 96.4 80 18 105/74 100 Intake and Output 06/11/17 06/12/17 19:00 07:00 Intake Total 1040 ml 500 ml Output Total 400 ml 800 ml Balance 640 ml -300 ml Intake Oral 1040 ml 500 ml Output Urine Total 400 ml 800 ml # Voids 4 Laboratory Tests 06/11/17 09:00: White Blood Count 3.1L, Red Blood Count 3.14L, Hemoglobin 9.2L, Hematocrit 28.8L , Mean Corpuscular Volume 92, Mean Corpuscular Hemoglobin 29.4, Mean Corpuscular Hemoglobin Concent 31.9L, Red Cell Distribution Width 13.3, Platelet Count 333, Mean Platelet Volume 6.8, Neutrophils (%) (Auto) , Lymphocytes (%) (Auto) , Monocytes (%) (Auto) , Eosinophils (%) (Auto) , Basophils (%) (Auto) , Lymphocytes [Pending], Sodium Level 137, Potassium Level 3.3L, Chloride Level 100, Carbon Dioxide Level 34H, Anion Gap 3L, Blood Urea Nitrogen 14, Creatinine 0.5L, Estimat Glomerular Filtration Rate > 60, Glucose Level 126H, Calcium Level 7.0L, Magnesium Level 1.2L, Immunoglobulin G [Pending] , Immunoglobulin A [Pending], Immunoglobulin M [Pending], Immunoglobulin E [ Pending], Percent CD3 Cells [Pending], Absolute CD3 Count [Pending], Percent CD4 Cells [Pending], Absolute CD4 Count [Pending], T-Lymphocyte CD4/CD8 Ratio [ Pending], Percent CD8 Cells [Pending], Absolute CD8 Count [Pending], HIV-1 RNA ( PCR) log10 Value [Pending], HIV-1 RNA Ultraquantitative (PCR) [Pending] 06/12/17 03:45: M. tuberculosis Complex DNA (PCR) [Pending] 06/12/17 06:00: White Blood Count 3.8L, Red Blood Count 3.03L, Hemoglobin 8.7L, Hematocrit 27.2L , Mean Corpuscular Volume 90, Mean Corpuscular Hemoglobin 28.8, Mean Corpuscular Hemoglobin Concent 32.1, Red Cell Distribution Width 13.3, Platelet Count 260, Mean Platelet Volume 7.7, Neutrophils (%) (Auto) , Lymphocytes (%) ( Auto) , Monocytes (%) (Auto) , Eosinophils (%) (Auto) , Basophils (%) (Auto) , Sodium Level [Pending], Potassium Level [Pending], Chloride Level [Pending], Carbon Dioxide Level [Pending], Blood Urea Nitrogen [Pending], Creatinine [ Pending], Estimat Glomerular Filtration Rate [Pending], Glucose Level [Pending] , Calcium Level [Pending], Magnesium Level [Pending], Neutrophils % (Manual) [ Pending], Lymphocytes % (Manual) [Pending], Platelet Estimate [Pending], Platelet Morphology [Pending], HLA-B27 [Pending], Rapid Plasma Reagin [Pending] , Hepatitis A Antibody Total [Pending], Hepatitis B Surface Antigen [Pending], Hepatitis B Surface Antibody [Pending], Hepatitis B Core Total Antibody [Pending ], Hepatitis C Antibody [Pending], HIV-1 RNA, Quantitative copies/mL [Pending], HIV Genotype [Pending] Height (Feet): 5 Height (Inches): 10.00 Weight (Pounds): 90 General Appearance: no apparent distress EENT: normal ENT inspection Neck: normal alignment Cardiovascular: normal peripheral pulses Respiratory/Chest: chest wall non-tender Extremities: normal range of motion Edema: trace edema Nikhil Woodward Jun 12, 2017 07:40
[2017-06-12 08:00] VITALS: BP 110/78
[2017-06-12] MEDS ORDERED: Sodium Phosphate 30 MM in NS 275 ML IVPB ONE (09:15)
[2017-06-12] MEDS: Lactulose 10gm/15ml UDC ORAL SCH ×3 (09:33→18:00)
[2017-06-12] MEDS: Docusate 100mg cap ORAL SCH ×2 (09:35→18:00)
[2017-06-12] MEDS: Heparin 5000 units/ml inj SUBQ SCH ×2 (09:58→21:23)
[2017-06-12] MEDS: Depakote ER 500mg tab ORAL SCH ×2 (09:59→21:21)
[2017-06-12] MEDS: Thiamine 100mg tab ORAL SCH (10:00)
[2017-06-12] MEDS: Magnesium Sulfate 1gm/100ml IVPB SCH ×4 (10:00→13:00)
--- NOTE | 2017-06-12 10:47 | Pulmonology Progress Note ---
Assessment/Plan Assessment/Plan ASSESSMENT MSSA PNA Interstitial lung disease acute hypoxemic RF requiring VM -resolved s/p bronchoscopy 06/10 HIV disease MAC infection ? PCR severe protein calorie malnutrition diarrhea alcohol dependence depression hypo Mg PLAN OF CARE MS floor respiratory isolation supplemental O2 titrate O2 to keep sat above 92%, pulmonary toilet sputum AFB x 3 ( 2 smear negative, but one cx + AFB) PPD negative , MTB PCR negative CT chest noted c/w ILD sputum + Staph aureus , repeated sputum cx negative s/p abx, ID follows now 1/2 AFB +some activity , culture back+ MAC ID follows per ID keep off abx, if worsen - then will start Bactrim first rapid HIV test negative , repeated rapid HIV test preliminary positive CD4 count pending LDH elevated started on steroids and clinically with some improvement, very slow taper DFA pending ? PCR ID ( dr Patel) prefer to hold off Bactrim since improving with steroids 1/2 AFB with activity ? ? JERRY? actinomycosis? nocardia s/p Bronchoscopy with bronchoalveolar lavage, s/p BAL BLL with findings of :Bilateral lung infiltrates, Friable mucosa but no active bleeding, Mild mucoid secretions, Normal endobronchial anatomy to subsegmental bronchi f/up with biopsy results per ID : reordered cocci Serology f/u HIV PCR, CD4 count still pending repeat AFB sp and MTB PCR legionella Ag and histoplasma Ag urine AFB DNA probe ( MAC , TB ) continue airborne isolation Fungal and AFB blood Cx repeat ESR,CRP replace Mg -total 8 mg , ceheck in am heme following , ( pt may need bone marrow ) venous Duplex BLE negative psych follows, optimized psych med regimen Diarrhea resolved GI following for the patient's chronic diarrhea. stool cx and stool C dif negative patient case manager recommendation re dietary supplements implemented continue with Folic acid, Thiamine, MVI [employer] on ETOH cessation DVT, GI prophylaxis case discussed and evaluated by supervising physician Subjective Allergies: Coded Allergies: No Known Allergies (Unverified , 05/23/17) Subjective afebrile, no leukocytosis diarrhea resolved + intermittent dry cough, no hemoptysis, + weakness weaned from VM down to O2 via NC , however prefers to wear VM s/p bronch 06/10 sputum AFB+ Mycobacterium avium overall with some improvement clinically Objective Last 24 Hour Vital Signs Date Time Temp Pulse Resp B/P (MAP) Pulse Ox O2 Delivery O2 Flow Rate FiO2 06/12/17 08:00 97.3 71 20 110/78 06/12/17 05:18 98 18 99 Venturi Mask 8.0 40 06/12/17 05:00 96 20 99 Venturi Mask 8.0 40 06/12/17 04:00 98.2 99 18 128/77 100 06/12/17 00:35 97 18 99 Venturi Mask 8.0 40 06/12/17 00:30 95 20 99 Venturi Mask 8.0 40 06/12/17 00:00 98.6 95 18 127/85 100 06/11/17 20:00 98.2 100 18 130/92 100 06/11/17 19:15 99 Nasal Cannula 8.0 40 06/11/17 19:15 Venturi Mask 8.0 40 06/11/17 19:15 96 18 98 Venturi Mask 8.0 40 06/11/17 19:10 94 18 99 Venturi Mask 8.0 40 06/11/17 15:59 97.7 47 21 129/67 99 06/11/17 13:33 84 18 98 Venturi Mask 14.0 55 06/11/17 13:26 79 20 98 Venturi Mask 14.0 55 06/11/17 12:00 97.0 79 18 110/76 98 Intake and Output 06/11/17 06/12/17 19:00 07:00 Intake Total 1040 ml 500 ml Output Total 400 ml 800 ml Balance 640 ml -300 ml Intake Oral 1040 ml 500 ml Output Urine Total 400 ml 800 ml # Voids 4 Objective General Appearance: no acute distress, cachetic, A/A/O x 3 male HEENT: normocephalic, atraumatic, anicteric, mucous membranes moist,VM 40% Respiratory/Chest: few scattered rhonchi with moderate air exchange , no respiratory distress, no accessory muscle use Cardiovascular: normal rate Abdomen: normal bowel sounds, soft, non tender Extremities: no edema, pedal pulses normal Neurologic/Psychiatric: alert, oriented x 3, responsive Musculoskeletal: normal muscle bulk Microbiology Date/Time Source Procedure Growth Status 06/10/17 10:55 Bronchial Washings Not Specified Gram Stain - Final Resulted 06/10/17 10:55 Bronchial Washings Not Specified Aerobic Culture Pending Resulted 06/10/17 10:55 Bronchial Washings Not Specified Anaerobic Culture Pending Resulted Laboratory Tests 06/12/17 03:45: M. tuberculosis Complex DNA (PCR) [Pending] 06/12/17 06:00: White Blood Count 3.8L, Red Blood Count 3.03L, Hemoglobin 8.7L, Hematocrit 27.2L , Mean Corpuscular Volume 90, Mean Corpuscular Hemoglobin 28.8, Mean Corpuscular Hemoglobin Concent 32.1, Red Cell Distribution Width 13.3, Platelet Count 260, Mean Platelet Volume 7.7, Neutrophils (%) (Auto) , Lymphocytes (%) ( Auto) , Monocytes (%) (Auto) , Eosinophils (%) (Auto) , Basophils (%) (Auto) , Differential Total Cells Counted 100, Neutrophils % (Manual) 80H, Lymphocytes % (Manual) 8L, Monocytes % (Manual) 6, Eosinophils % (Manual) 0, Basophils % ( Manual) 0, Band Neutrophils 6, Platelet Estimate Adequate, Platelet Morphology Normal, Hypochromasia 1+, Sodium Level 137, Potassium Level 4.4, Chloride Level 102, Carbon Dioxide Level 31, Anion Gap 4L, Blood Urea Nitrogen 13, Creatinine 0.5L, Estimat Glomerular Filtration Rate > 60, Glucose Level 113H, Calcium Level 6.8L, Magnesium Level 1.1L, Rapid Plasma Reagin [Pending], Hepatitis A Antibody Total [Pending], Hepatitis B Surface Antigen [Pending], Hepatitis B Surface Antibody [Pending], Hepatitis B Core Total Antibody [Pending], Hepatitis C Antibody [Pending] 06/12/17 08:00: Chlamydia trachomatis RNA [Pending], Histoplasma Antigen [Pending], Neisseria gonorrhoeae RNA [Pending] 06/12/17 09:30: HLA-B27 [Pending], HIV-1 RNA, Quantitative copies/mL [Pending], HIV Genotype [ Pending] Current Medications Medications (Trade) Dose Ordered Sig/Anna Route PRN Reason Start Time Stop Time Status Last Admin Dose Admin Acetaminophen (Tylenol) 650 mg Q4H PRN ORAL T>100.5 05/23/17 12:15 06/22/17 12:14 05/29/17 21:16 Albuterol/ Ipratropium (Albuterol/ Ipratropium) 3 ml Q4H PRN HHN Shortness of Breath 06/11/17 09:30 06/16/17 23:59 06/12/17 05:08 Albuterol/ Ipratropium (Albuterol/ Ipratropium) 3 ml Q6HRT HHN 06/11/17 13:00 06/16/17 23:59 06/12/17 00:57 Dextrose (Dextrose 50%) STAT PRN IV Hypoglycemia 05/23/17 12:15 06/22/17 12:14 Divalproex Sodium (Depakote ER) 1,000 mg EVERY 12 HOURS ORAL 05/29/17 09:00 06/28/17 08:59 06/11/17 10:05 Docusate Sodium (Colace) 100 mg TWICE A DAY ORAL 06/08/17 18:00 07/08/17 17:59 06/11/17 10:03 Fluoxetine HCl (PROzac) 20 mg DAILY ORAL 05/27/17 09:00 06/26/17 08:59 06/12/17 09:43 Folic Acid (Folate) 1 mg DAILY ORAL 05/27/17 09:00 06/26/17 08:59 06/12/17 09:36 Heparin Sodium (Porcine) (Heparin 5000 units/ml) 5,000 units EVERY 12 HOURS SUBQ 05/23/17 21:00 06/22/17 20:59 06/12/17 09:58 Lactulose (Cephulac) 10 gm THREE TIMES A DAY ORAL 06/08/17 13:00 07/08/17 12:59 06/11/17 10:05 Magnesium Sulfate 100 ml @ 100 mls/hr Q1H IVPB 06/12/17 10:00 06/12/17 13:59 Multivitamins (Multivitamins) 1 tab DAILY ORAL 05/31/17 09:00 06/30/17 08:59 06/11/17 10:04 Ondansetron HCl (Zofran) 4 mg Q6H PRN IVP Nausea & Vomiting 05/23/17 12:15 06/22/17 12:14 Polyethylene Glycol (Miralax) 17 gm DAILYPRN PRN ORAL Constipation 05/23/17 12:15 06/22/17 12:14 Prednisone (predniSONE) 50 mg DAILY ORAL 06/12/17 09:00 07/12/17 08:59 06/12/17 09:45 Ranitidine HCl (Zantac) 150 mg BEDTIME ORAL 05/26/17 21:00 06/25/17 20:59 06/06/17 21:13 Thiamine HCl (Vitamin B1) 100 mg DAILY ORAL 05/31/17 09:00 06/30/17 08:59 06/11/17 10:05 Bob ([facility])Analy NP Jun 12, 2017 10:47
--- NOTE | 2017-06-12 11:00 | GI Progress Note ---
Assessment/Plan Problems: (1) Generalized weakness ICD Codes: R53.1 - Weakness SNOMED: 46058912 (2) Anemia ICD Codes: D64.9 - Anemia, unspecified SNOMED: 770812330 (3) Severe protein-calorie malnutrition ICD Codes: E43 - Unspecified severe protein-calorie malnutrition SNOMED: 589273337 (4) Atypical pneumonia ICD Codes: J18.9 - Pneumonia, unspecified organism SNOMED: 811534138 (5) Protein calorie malnutrition ICD Codes: E46 - Unspecified protein-calorie malnutrition SNOMED: 847128195 Qualifiers: Qualified Codes: E44.0 - Moderate protein-calorie malnutrition (6) Diarrhea ICD Codes: R19.7 - Diarrhea, unspecified SNOMED: 89558201 Qualifiers: Qualified Codes: R19.7 - Diarrhea, unspecified Status: unchanged Status Narrative Discussed with Dr. Gamez. Assessment/Plan CT chest reviewed. cdiff negative iron levels unremarkable HIV negative, second test positive airborne r/o TB KUB r/o chronic pancreatitis >> unremarkable OB stool r/o GI bleed >> negative Tissue Transglutaminase IgA r/o celiac >> negative fu pulmonary, oncology recs cont bowel regime monitor H&H, prn transfusions bowel regime ppi folate PO H2B fu labs Subjective Subjective constipation Objective Last 24 Hour Vital Signs Date Time Temp Pulse Resp B/P (MAP) Pulse Ox O2 Delivery O2 Flow Rate FiO2 06/12/17 08:00 97.3 71 20 110/78 06/12/17 05:18 98 18 99 Venturi Mask 8.0 40 06/12/17 05:00 96 20 99 Venturi Mask 8.0 40 06/12/17 04:00 98.2 99 18 128/77 100 06/12/17 00:35 97 18 99 Venturi Mask 8.0 40 06/12/17 00:30 95 20 99 Venturi Mask 8.0 40 06/12/17 00:00 98.6 95 18 127/85 100 06/11/17 20:00 98.2 100 18 130/92 100 06/11/17 19:15 99 Nasal Cannula 8.0 40 06/11/17 19:15 Venturi Mask 8.0 40 06/11/17 19:15 96 18 98 Venturi Mask 8.0 40 06/11/17 19:10 94 18 99 Venturi Mask 8.0 40 06/11/17 15:59 97.7 47 21 129/67 99 06/11/17 13:33 84 18 98 Venturi Mask 14.0 55 06/11/17 13:26 79 20 98 Venturi Mask 14.0 55 06/11/17 12:00 97.0 79 18 110/76 98 Intake and Output 06/11/17 06/12/17 19:00 07:00 Intake Total 1040 ml 500 ml Output Total 400 ml 800 ml Balance 640 ml -300 ml Intake Oral 1040 ml 500 ml Output Urine Total 400 ml 800 ml # Voids 4 Laboratory Tests Test 06/12/17 03:45 06/12/17 06:00 06/12/17 08:00 06/12/17 09:30 M. tuberculosis Complex DNA (PCR) Pending White Blood Count 3.8 K/UL (4.8-10.8) L Red Blood Count 3.03 M/UL (4.70-6.10) L Hemoglobin 8.7 G/DL (14.2-18.0) L Hematocrit 27.2 % (42.0-52.0) L Mean Corpuscular Volume 90 FL (80-99) Mean Corpuscular Hemoglobin 28.8 PG (27.0-31.0) Mean Corpuscular Hemoglobin Concent 32.1 G/DL (32.0-36.0) Red Cell Distribution Width 13.3 % (11.6-14.8) Platelet Count 260 K/UL (150-450) Mean Platelet Volume 7.7 FL (6.5-10.1) Neutrophils (%) (Auto) % (45.0-75.0) Lymphocytes (%) (Auto) % (20.0-45.0) Monocytes (%) (Auto) % (1.0-10.0) Eosinophils (%) (Auto) % (0.0-3.0) Basophils (%) (Auto) % (0.0-2.0) Differential Total Cells Counted 100 Neutrophils % (Manual) 80 % (45-75) H Lymphocytes % (Manual) 8 % (20-45) L Monocytes % (Manual) 6 % (1-10) Eosinophils % (Manual) 0 % (0-3) Basophils % (Manual) 0 % (0-2) Band Neutrophils 6 % (0-8) Platelet Estimate Adequate Platelet Morphology Normal Hypochromasia 1+ Sodium Level 137 MMOL/L (136-145) Potassium Level 4.4 MMOL/L (3.5-5.1) Chloride Level 102 MMOL/L (98-107) Carbon Dioxide Level 31 MMOL/L (21-32) Anion Gap 4 mmol/L (5-15) L Blood Urea Nitrogen 13 mg/dL (7-18) Creatinine 0.5 MG/DL (0.55-1.30) L Estimat Glomerular Filtration Rate > 60 mL/min (>60) Glucose Level 113 MG/DL (74-106) H Calcium Level 6.8 MG/DL (8.5-10.1) L Magnesium Level 1.1 MG/DL (1.8-2.4) L Rapid Plasma Reagin Pending Hepatitis A Antibody Total Pending Hepatitis B Surface Antigen Pending Hepatitis B Surface Antibody Pending Hepatitis B Core Total Antibody Pending Hepatitis C Antibody Pending Chlamydia trachomatis RNA Pending Histoplasma Antigen Pending Neisseria gonorrhoeae RNA Pending HLA-B27 Pending HIV-1 RNA, Quantitative copies/mL Pending HIV Genotype Pending Height (Feet): 5 Height (Inches): 10.00 Weight (Pounds): 90 General Appearance: WD/WN, no apparent distress, alert Cardiovascular: normal rate Respiratory/Chest: normal breath sounds, no respiratory distress Abdominal Exam: normal bowel sounds, non tender, soft Extremities: normal range of motion, non-tender Alyssa Felix N.P. Jun 12, 2017 10:59
--- NOTE | 2017-06-12 11:44 | Infectious Diseases Prog Note ---
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 Typicall isolated MAC infection is seen in immunocompetent patients. Given he is HIV with probably AIDS with a low CD4 as very low lymphocyte counts (CD4 unable to be calculated) and his clinical presentation of wt loss, intermittent fevers, leukopenia/anemia , pulmonary infiltrates are very suggestive of the diagnosis. Diagnosis is confirmed by either isolation of MAC from blood and/or bone marrow. Also possible concomitant PCP given extensive GGO, and possible hypoxia (patient refusing ABG) Pneumonia. . Sp Cx : MSSA SP Rx - s/p Bronchoscopy 06/10: friable mucosa, mild mucoid secretions; cx sent CT of Abd /Bilateral pulmonary alveolar infiltrates consistent with pneumonia.- patient not hypoxic, not febrile- lower suspicion PCP AFBx 3 : Neg ( 3rd from 05/26 not in EMR ) now AFB Cx 06/16 05/25 : +MAC; MTB PCR : Neg T Spot : neg Crytpo and blastomycosis: JOHANNA Neg ; RF + histo ab : neg CT: Extensive interstitial and airspace parenchymal disease, and honeycomb appearance of much of the lower lobe and right middle lobe interstitial component, HIV: first test negative repeat, repeat +; awaiting VL; CD4 unable to be calculated due to low absolute lymphocyte count Chronic diarrhea resolved, now constipated Stool for ova and parasite ( ? sent ) stool Cx : neg ? pancreatic insufficiency due to chronic alcohol abuse. also possibley due to disseminated MAC Elevated ESR , CRP and RF JOHANNA : neg Leukopenia/anemia Anemia and leukopenia PLAN: -Will start empiric treatment for both PCP with Bactrim ~20mg/kg qd (Bactrim DS 1.5 tab tid) pending PCP DFA x2 (BAL and sputum) -Start tx for possible disseminated MAC with Azithromycin 600mg qd, Rifabutin 300mg qd and Ethambutol 600mg qd -AFB bcx -Will order bone marrow biopsy and send tissue for path, AFB and fungal cx -D/c airborne isolation -Will start ARV within the next 2 weeks: regimen will be Truvada and Dolutegravir while awaiting HIV genotype -f/u HIV VL, genotype -f/u BAL cx (bacterial,f ungal, AFB, PCP DFA), Hep serologies, RPR, GC/CL, HLA b 27 -will consult classification case manager to start working on HIV clinic to continue HIV and MAC to be set up prior to discharge; risk of readmission if not follow up with a HIV provider upon discharge. 06/05 SP Ancef d# 10 / 10 05/30 SP Zithromax d# 5 / 5 06/01 SP ( refusing) Flagyl d# 46 05/27 SP vancomycin, cefepime d# 5, Monitor CBC/CMP Serology (coccidio , reordered ) f/ulegionella ag and histoplasma ag uribne Fungal and AFB blood Cx Discussed with Analy Rojas [employer]LECT[employer] SYSTEM SPECIALIST, pharmacy and micro lab staff. Subjective Allergies: Coded Allergies: No Known Allergies (Unverified , 05/23/17) Subjective afebrile in >72hrs mild leukopenia AFBsp cx MAC CD4 was unable to be calculated due to very low absolute lymphocyte count asking for VM for comfort, refused ABG. Objective Vital Signs Last 24 Hour Vital Signs Date Time Temp Pulse Resp B/P (MAP) Pulse Ox O2 Delivery O2 Flow Rate FiO2 06/12/17 08:00 97.3 71 20 110/78 06/12/17 07:27 99 Venturi Mask 8.0 40 06/12/17 07:27 Venturi Mask 8.0 40 06/12/17 07:00 Venturi Mask 06/12/17 07:00 Venturi Mask 06/12/17 05:18 98 18 99 Venturi Mask 8.0 40 06/12/17 05:00 96 20 99 Venturi Mask 8.0 40 06/12/17 04:00 98.2 99 18 128/77 100 06/12/17 00:35 97 18 99 Venturi Mask 8.0 40 06/12/17 00:30 95 20 99 Venturi Mask 8.0 40 06/12/17 00:00 98.6 95 18 127/85 100 06/11/17 20:00 98.2 100 18 130/92 100 06/11/17 19:15 99 Nasal Cannula 8.0 40 06/11/17 19:15 Venturi Mask 8.0 40 06/11/17 19:15 96 18 98 Venturi Mask 8.0 40 06/11/17 19:10 94 18 99 Venturi Mask 8.0 40 06/11/17 15:59 97.7 47 21 129/67 99 06/11/17 13:33 84 18 98 Venturi Mask 14.0 55 06/11/17 13:26 79 20 98 Venturi Mask 14.0 55 06/11/17 12:00 97.0 79 18 110/76 98 Height (Feet): 5 Height (Inches): 10.00 Weight (Pounds): 90 Objective General Appearance: no acute distress, cachetic HEENT: normocephalic, atraumatic, mucous membranes moist Respiratory/Chest: chest wall non-tender, rhonchi - scattered but with improved air movement Cardiovascular: normal peripheral pulses, regular rhythm, regularly irregular Abdomen: normal bowel sounds, soft, non tender, no organomegaly, non distended Extremities: no cyanosis, no clubbing, no edema Microbiology Date/Time Source Procedure Growth Status 06/10/17 10:55 Bronchial Washings Not Specified Gram Stain - Final Resulted 06/10/17 10:55 Bronchial Washings Not Specified Aerobic Culture Pending Resulted 06/10/17 10:55 Bronchial Washings Not Specified Anaerobic Culture Pending Resulted Laboratory Tests Test 06/12/17 03:45 06/12/17 06:00 06/12/17 08:00 06/12/17 09:30 M. tuberculosis Complex DNA (PCR) Pending White Blood Count 3.8 K/UL (4.8-10.8) L Red Blood Count 3.03 M/UL (4.70-6.10) L Hemoglobin 8.7 G/DL (14.2-18.0) L Hematocrit 27.2 % (42.0-52.0) L Mean Corpuscular Volume 90 FL (80-99) Mean Corpuscular Hemoglobin 28.8 PG (27.0-31.0) Mean Corpuscular Hemoglobin Concent 32.1 G/DL (32.0-36.0) Red Cell Distribution Width 13.3 % (11.6-14.8) Platelet Count 260 K/UL (150-450) Mean Platelet Volume 7.7 FL (6.5-10.1) Neutrophils (%) (Auto) % (45.0-75.0) Lymphocytes (%) (Auto) % (20.0-45.0) Monocytes (%) (Auto) % (1.0-10.0) Eosinophils (%) (Auto) % (0.0-3.0) Basophils (%) (Auto) % (0.0-2.0) Differential Total Cells Counted 100 Neutrophils % (Manual) 80 % (45-75) H Lymphocytes % (Manual) 8 % (20-45) L Monocytes % (Manual) 6 % (1-10) Eosinophils % (Manual) 0 % (0-3) Basophils % (Manual) 0 % (0-2) Band Neutrophils 6 % (0-8) Platelet Estimate Adequate Platelet Morphology Normal Hypochromasia 1+ Sodium Level 137 MMOL/L (136-145) Potassium Level 4.4 MMOL/L (3.5-5.1) Chloride Level 102 MMOL/L (98-107) Carbon Dioxide Level 31 MMOL/L (21-32) Anion Gap 4 mmol/L (5-15) L Blood Urea Nitrogen 13 mg/dL (7-18) Creatinine 0.5 MG/DL (0.55-1.30) L Estimat Glomerular Filtration Rate > 60 mL/min (>60) Glucose Level 113 MG/DL (74-106) H Calcium Level 6.8 MG/DL (8.5-10.1) L Magnesium Level 1.1 MG/DL (1.8-2.4) L Rapid Plasma Reagin Pending Hepatitis A Antibody Total Pending Hepatitis B Surface Antigen Pending Hepatitis B Surface Antibody Pending Hepatitis B Core Total Antibody Pending Hepatitis C Antibody Pending Chlamydia trachomatis RNA Pending Histoplasma Antigen Pending Neisseria gonorrhoeae RNA Pending HLA-B27 Pending HIV-1 RNA, Quantitative copies/mL Pending HIV Genotype Pending Current Medications Medications (Trade) Dose Ordered Sig/Anna Route PRN Reason Start Time Stop Time Status Last Admin Dose Admin Acetaminophen (Tylenol) 650 mg Q4H PRN ORAL T>100.5 05/23/17 12:15 06/22/17 12:14 05/29/17 21:16 Albuterol/ Ipratropium (Albuterol/ Ipratropium) 3 ml Q4H PRN HHN Shortness of Breath 06/11/17 09:30 06/16/17 23:59 06/12/17 05:08 Albuterol/ Ipratropium (Albuterol/ Ipratropium) 3 ml Q6HRT HHN 06/11/17 13:00 06/16/17 23:59 06/12/17 00:57 Dextrose (Dextrose 50%) STAT PRN IV Hypoglycemia 05/23/17 12:15 06/22/17 12:14 Divalproex Sodium (Depakote ER) 1,000 mg EVERY 12 HOURS ORAL 05/29/17 09:00 06/28/17 08:59 06/11/17 10:05 Docusate Sodium (Colace) 100 mg TWICE A DAY ORAL 06/08/17 18:00 07/08/17 17:59 06/11/17 10:03 Fluoxetine HCl (PROzac) 20 mg DAILY ORAL 05/27/17 09:00 06/26/17 08:59 06/12/17 09:43 Folic Acid (Folate) 1 mg DAILY ORAL 05/27/17 09:00 06/26/17 08:59 06/12/17 09:36 Heparin Sodium (Porcine) (Heparin 5000 units/ml) 5,000 units EVERY 12 HOURS SUBQ 05/23/17 21:00 06/22/17 20:59 06/12/17 09:58 Lactulose (Cephulac) 10 gm THREE TIMES A DAY ORAL 06/08/17 13:00 07/08/17 12:59 06/11/17 10:05 Magnesium Sulfate 100 ml @ 100 mls/hr Q1H IVPB 06/12/17 10:00 06/12/17 13:59 Magnesium Sulfate 100 ml @ 100 mls/hr Q1H IVPB 06/12/17 15:00 06/12/17 18:59 Multivitamins (Multivitamins) 1 tab DAILY ORAL 05/31/17 09:00 06/30/17 08:59 06/11/17 10:04 Ondansetron HCl (Zofran) 4 mg Q6H PRN IVP Nausea & Vomiting 05/23/17 12:15 06/22/17 12:14 Polyethylene Glycol (Miralax) 17 gm DAILYPRN PRN ORAL Constipation 05/23/17 12:15 06/22/17 12:14 Prednisone (predniSONE) 50 mg DAILY ORAL 06/12/17 09:00 07/12/17 08:59 06/12/17 09:45 Ranitidine HCl (Zantac) 150 mg BEDTIME ORAL 05/26/17 21:00 06/25/17 20:59 06/06/17 21:13 Thiamine HCl (Vitamin B1) 100 mg DAILY ORAL 05/31/17 09:00 06/30/17 08:59 06/11/17 10:05 Haydee Tucker M.D. Jun 12, 2017 11:44
--- NOTE | 2017-06-12 11:51 | Diagnostic Imaging Report ---
Indication: Dyspnea Comparison: 06/07/2017 A single view chest radiograph was obtained. Findings: Largely interstitial disease again demonstrated bilaterally with slight improvement since the last examination. Heart size remains normal and is unchanged. No pleural effusions are identified. IMPRESSION: Moderate interstitial disease improved since the last examination.
[2017-06-12 12:00] VITALS: BP 120/87
[2017-06-12] MEDS: Azithromycin 600mg Tab ORAL SCH (16:11)
[2017-06-12] MEDS: Bactrim-DS 1 tab ORAL SCH ×2 (16:15→21:22)
[2017-06-12 16:22] VITALS: BP 122/82
[2017-06-12] MEDS: Rifabutin 150mg cap ORAL SCH (19:11)
[2017-06-12 20:14] VITALS: BP 117/75
--- NOTE | 2017-06-12 21:05 | General Progress Note ---
Assessment/Plan Assessment/Plan ASSESSMENT/PLAN HIV with very low CD4 count Leukopenia 2/2 HIV Anemia 2/2 HIV, watch counts, transfuse if hgb below 7 -->Low folate level, continue PO folate Anemia 2/2 folic acid deficiency AFB + for Mycobacterium avium. To be confirmed with bone marrow bx 06/17/17 MSSA PNA Interstitial lung disease acute hypoxemic RF severe protein calorie malnutrition diarrhea, better. C. diff negative. GI following alcohol dependence depression Subjective Allergies: Coded Allergies: No Known Allergies (Unverified , 05/23/17) All Systems: reviewed and negative except above Subjective resting in bed, bone marrow bx scheduled Objective Last 24 Hour Vital Signs Date Time Temp Pulse Resp B/P (MAP) Pulse Ox O2 Delivery O2 Flow Rate FiO2 06/12/17 20:14 96.8 87 20 117/75 99 Room Air 06/12/17 16:22 97.5 104 20 122/82 100 06/12/17 14:13 Nasal Cannula 4.0 36 06/12/17 14:13 98 Nasal Cannula 4.0 36 06/12/17 13:42 98 18 99 Venturi Mask 8.0 40 06/12/17 13:34 88 20 99 Venturi Mask 8.0 40 06/12/17 12:00 98.1 112 20 120/87 100 Nasal Cannula 4.0 06/12/17 08:00 97.3 71 20 110/78 06/12/17 07:27 99 Venturi Mask 8.0 40 06/12/17 07:27 Venturi Mask 8.0 40 06/12/17 07:00 Venturi Mask 06/12/17 07:00 Venturi Mask 06/12/17 05:18 98 18 99 Venturi Mask 8.0 40 06/12/17 05:00 96 20 99 Venturi Mask 8.0 40 06/12/17 04:00 98.2 99 18 128/77 100 06/12/17 00:35 97 18 99 Venturi Mask 8.0 40 06/12/17 00:30 95 20 99 Venturi Mask 8.0 40 06/12/17 00:00 98.6 95 18 127/85 100 Intake and Output 06/11/17 06/12/17 19:00 07:00 Intake Total 1040 ml 500 ml Output Total 400 ml 800 ml Balance 640 ml -300 ml Intake Oral 1040 ml 500 ml Output Urine Total 400 ml 800 ml # Voids 4 Laboratory Tests 06/12/17 03:45: M. tuberculosis Complex DNA (PCR) [Pending] 06/12/17 06:00: White Blood Count 3.8L, Red Blood Count 3.03L, Hemoglobin 8.7L, Hematocrit 27.2L , Mean Corpuscular Volume 90, Mean Corpuscular Hemoglobin 28.8, Mean Corpuscular Hemoglobin Concent 32.1, Red Cell Distribution Width 13.3, Platelet Count 260, Mean Platelet Volume 7.7, Neutrophils (%) (Auto) , Lymphocytes (%) ( Auto) , Monocytes (%) (Auto) , Eosinophils (%) (Auto) , Basophils (%) (Auto) , Differential Total Cells Counted 100, Neutrophils % (Manual) 80H, Lymphocytes % (Manual) 8L, Monocytes % (Manual) 6, Eosinophils % (Manual) 0, Basophils % ( Manual) 0, Band Neutrophils 6, Platelet Estimate Adequate, Platelet Morphology Normal, Hypochromasia 1+, Sodium Level 137, Potassium Level 4.4, Chloride Level 102, Carbon Dioxide Level 31, Anion Gap 4L, Blood Urea Nitrogen 13, Creatinine 0.5L, Estimat Glomerular Filtration Rate > 60, Glucose Level 113H, Calcium Level 6.8L, Magnesium Level 1.1L, Rapid Plasma Reagin [Pending], Hepatitis A Antibody Total [Pending], Hepatitis B Surface Antigen [Pending], Hepatitis B Surface Antibody [Pending], Hepatitis B Core Total Antibody [Pending], Hepatitis C Antibody [Pending] 06/12/17 08:00: Chlamydia trachomatis RNA [Pending], Histoplasma Antigen [Pending], Neisseria gonorrhoeae RNA [Pending] 06/12/17 09:30: HLA-B27 [Pending], HIV-1 RNA, Quantitative copies/mL [Pending], HIV Genotype [ Pending] Height (Feet): 5 Height (Inches): 10.00 Weight (Pounds): 90 General Appearance: thin EENT: PERRL/EOMI Neck: non-tender Abdomen: normal bowel sounds Extremities: non-tender Neurologic: cruise agent II-XII 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, no motor/sensory deficits Skin: normal pigmentation Nikhil Woodward Jun 12, 2017 21:05
[2017-06-12] MEDS: Magnesium Oxide 400mg tab ORAL SCH (21:22)
[2017-06-13 00:05] VITALS: BP 117/77
[2017-06-13] MEDS: Albuterol/Ipratropium 3ml neb HHN SCH ×4 (01:45→19:00)
[2017-06-13 03:59] VITALS: BP 121/63
[2017-06-13 07:31] LABS: ALANINE AMINOTRANSFERASE 36 U/L (12-78); ALBUMIN/GLOBULIN RATIO 0.2 (1.0-2.7); ALKALINE PHOSPHATASE 132 U/L (46-116); ANION GAP 3 mmol/L (5-15); ASPARTATE AMINO TRANSFERASE 30 U/L (15-37); BILIRUBIN,TOTAL 0.1 MG/DL (0.2-1.0); BLOOD UREA NITROGEN 16 mg/dL (7-18); CALCIUM 7.3 MG/DL (8.5-10.1); CARBON DIOXIDE 32 MMOL/L (21-32); CHLORIDE 105 MMOL/L (98-107); CREATININE 0.5 MG/DL (0.55-1.30); POTASSIUM 3.6 MMOL/L (3.5-5.1); SODIUM 140 MMOL/L (136-145)
[2017-06-13 07:40] LABS: HEMATOCRIT 23.5 % (42.0-52.0); HEMOGLOBIN 7.8 G/DL (14.2-18.0); MEAN CORPUSCULAR VOLUME 92 FL (80-99); PLATELET COUNT 343 K/UL (150-450); RED BLOOD COUNT 2.55 M/UL (4.70-6.10); WHITE BLOOD COUNT 2.6 K/UL (4.8-10.8)
[2017-06-13 07:52] LABS: ANION GAP 4 mmol/L (5-15); BLOOD UREA NITROGEN 16 mg/dL (7-18); CARBON DIOXIDE 31 MMOL/L (21-32); CHLORIDE 106 MMOL/L (98-107); CREATININE 0.4 MG/DL (0.55-1.30); SODIUM 141 MMOL/L (136-145)
[2017-06-13 08:48] VITALS: BP 121/83
[2017-06-13] MEDS: Lactulose 10gm/15ml UDC ORAL SCH ×3 (09:00→17:32)
[2017-06-13] MEDS: Docusate 100mg cap ORAL SCH ×2 (09:00→17:32)
[2017-06-13] MEDS: Heparin 5000 units/ml inj SUBQ SCH ×2 (09:00→20:48)
[2017-06-13] MEDS: Thiamine 100mg tab ORAL SCH (09:02)
[2017-06-13] MEDS: Depakote ER 500mg tab ORAL SCH ×2 (09:03→20:47)
[2017-06-13] MEDS: Magnesium Oxide 400mg tab ORAL SCH ×3 (09:03→17:32)
[2017-06-13] MEDS: Azithromycin 600mg Tab ORAL SCH (09:03)
[2017-06-13] MEDS: Rifabutin 150mg cap ORAL SCH (09:04)
[2017-06-13] MEDS: Bactrim-DS 1 tab ORAL SCH ×3 (09:06→17:31)
--- NOTE | 2017-06-13 09:33 | Infectious Diseases Prog Note ---
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 Typicall isolated MAC infection is seen in immunocompetent patients. Given he is HIV with probably AIDS with a low CD4 as very low lymphocyte counts (CD4 unable to be calculated) and his clinical presentation of wt loss, intermittent fevers, leukopenia/anemia , pulmonary infiltrates are very suggestive of the diagnosis. Diagnosis is confirmed by either isolation of MAC from blood and/or bone marrow. Also possible concomitant PCP given extensive GGO, and possible hypoxia (patient refusing ABG) Pneumonia. . Sp Cx : MSSA SP Rx - s/p Bronchoscopy 06/10: friable mucosa, mild mucoid secretions; cx sent CT of Abd /Bilateral pulmonary alveolar infiltrates consistent with pneumonia.- patient not hypoxic, not febrile- lower suspicion PCP AFBx 3 : Neg ( 3rd from 05/26 not in EMR ) now AFB Cx 06/16 05/25 : +MAC; MTB PCR : Neg T Spot : neg Crytpo and blastomycosis: JOHANNA Neg ; RF + histo ab : neg CT: Extensive interstitial and airspace parenchymal disease, and honeycomb appearance of much of the lower lobe and right middle lobe interstitial component, HIV: first test negative repeat, repeat +; awaiting VL; CD4 unable to be calculated due to low absolute lymphocyte count -Hep a immune -Hep b not immune, neg hep C -RPR neg Chronic diarrhea resolved, now constipated Stool for ova and parasite ( ? sent ) stool Cx : neg ? pancreatic insufficiency due to chronic alcohol abuse. also possibley due to disseminated MAC Elevated ESR , CRP and RF JOHANNA : neg Leukopenia/anemia Anemia and leukopenia PLAN: -Continue empiric treatment for PCP with Bactrim ~20mg/kg qd #2 (Bactrim DS 1.5 tab tid) pending PCP DFA x2 (BAL and sputum) -Continue tx for possible disseminated MAC with Azithromycin 600mg qd, Rifabutin 300mg qd and Ethambutol 600mg qd #2 -f/u AFB bcx -for bone marrow biopsy on 06/17 and send tissue for path, AFB and fungal cx -Will start ARV within the next 2 weeks: regimen will be Truvada and Dolutegravir while awaiting HIV genotype -f/u HIV VL, genotype -f/u BAL cx (bacterial,f ungal, AFB, PCP DFA), GC/CL, HLA b 27 -will consult watch caser to start working on HIV clinic to continue HIV and MAC to be set up prior to discharge; risk of readmission if not follow up with a HIV provider upon discharge. 06/05 SP Ancef d# 10 / 10 05/30 SP Zithromax d# 5 / 5 06/01 SP ( refusing) Flagyl d# 46 05/27 SP vancomycin, cefepime d# 5, Monitor CBC/CMP Serology (coccidio , reordered ) f/ulegionella ag and histoplasma ag uribne Fungal and AFB blood Cx Discussed with Rn and heme onc team Subjective Allergies: Coded Allergies: No Known Allergies (Unverified , 05/23/17) Subjective afebrile in >72hrs mild leukopenia AFBsp cx MAC CD4 was unable to be calculated due to very low absolute lymphocyte count asking for VM for comfort, refused ABG. Objective Vital Signs Last 24 Hour Vital Signs Date Time Temp Pulse Resp B/P (MAP) Pulse Ox O2 Delivery O2 Flow Rate FiO2 06/13/17 08:48 97.2 84 15 121/83 100 06/13/17 07:36 Nasal Cannula 4.0 36 06/13/17 07:36 88 20 98 Nasal Cannula 4.0 36 06/13/17 07:29 84 20 94 Room Air 21 06/13/17 07:28 94 Room Air 21 06/13/17 04:00 99 Room Air 06/13/17 03:59 98.3 57 20 121/63 99 Room Air 06/13/17 01:45 Nasal Cannula 4.0 36 06/13/17 01:45 Nasal Cannula 4.0 36 06/13/17 00:05 100 Room Air 06/13/17 00:05 98.1 81 20 117/77 100 Room Air 06/12/17 22:11 87 20 96 Nasal Cannula 4.0 36 06/12/17 22:11 Nasal Cannula 4.0 36 06/12/17 22:11 96 Nasal Cannula 4.0 36 06/12/17 22:00 87 20 96 Nasal Cannula 4.0 36 06/12/17 20:14 96.8 87 20 117/75 99 Room Air 06/12/17 20:14 99 Room Air 06/12/17 16:22 97.5 104 20 122/82 100 12/29/17 14:13 Nasal Cannula 4.0 36 06/12/17 14:13 98 Nasal Cannula 4.0 36 06/12/17 13:42 98 18 99 Venturi Mask 8.0 40 06/12/17 13:34 88 20 99 Venturi Mask 8.0 40 06/12/17 12:00 98.1 112 20 120/87 100 Nasal Cannula 4.0 Height (Feet): 5 Height (Inches): 10.00 Weight (Pounds): 90 Objective General Appearance: no acute distress, cachetic HEENT: normocephalic, atraumatic, mucous membranes moist Respiratory/Chest: chest wall non-tender, rhonchi - scattered but with improved air movement Cardiovascular: normal peripheral pulses, regular rhythm, regularly irregular Abdomen: normal bowel sounds, soft, non tender, no organomegaly, non distended Extremities: no cyanosis, no clubbing, no edema Microbiology Date/Time Source Procedure Growth Status 06/10/17 10:55 Body Fluid AFB Specimen Processing Tissue - Final Resulted 06/10/17 10:55 Body Fluid Acid Fast Bacilli Smear - Final Resulted 06/10/17 10:55 Body Fluid Acid Fast Bacilli Culture Pending Resulted 06/10/17 10:55 Bronchial Washings Not Specified Gram Stain - Final Resulted 06/10/17 10:55 Aerobic Culture - Preliminary Usual Respiratory Beatrice Resulted 06/10/17 10:55 Bronchial Washings Not Specified Anaerobic Culture - Preliminary Resulted Laboratory Tests Test 06/12/17 09:30 06/13/17 05:25 HLA-B27 Pending HIV-1 RNA, Quantitative copies/mL Pending HIV Genotype Pending White Blood Count 2.6 K/UL (4.8-10.8) L Red Blood Count 2.55 M/UL (4.70-6.10) L Hemoglobin 7.8 G/DL (14.2-18.0) L Hematocrit 23.5 % (42.0-52.0) L Mean Corpuscular Volume 92 FL (80-99) Mean Corpuscular Hemoglobin 30.4 PG (27.0-31.0) Mean Corpuscular Hemoglobin Concent 33.1 G/DL (32.0-36.0) Red Cell Distribution Width 14.0 % (11.6-14.8) Platelet Count 343 K/UL (150-450) Mean Platelet Volume 6.2 FL (6.5-10.1) L Neutrophils (%) (Auto) % (45.0-75.0) Lymphocytes (%) (Auto) % (20.0-45.0) Monocytes (%) (Auto) % (1.0-10.0) Eosinophils (%) (Auto) % (0.0-3.0) Basophils (%) (Auto) % (0.0-2.0) Differential Total Cells Counted 100 Neutrophils % (Manual) 70 % (45-75) Lymphocytes % (Manual) 18 % (20-45) L Monocytes % (Manual) 10 % (1-10) Eosinophils % (Manual) 2 % (0-3) Basophils % (Manual) 0 % (0-2) Band Neutrophils 0 % (0-8) Platelet Estimate Adequate Platelet Morphology Normal Hypochromasia 1+ Sodium Level 140 MMOL/L (136-145) Potassium Level 3.6 MMOL/L (3.5-5.1) Chloride Level 105 MMOL/L (98-107) Carbon Dioxide Level 32 MMOL/L (21-32) Anion Gap 3 mmol/L (5-15) L Blood Urea Nitrogen 16 mg/dL (7-18) Creatinine 0.5 MG/DL (0.55-1.30) L Estimat Glomerular Filtration Rate > 60 mL/min (>60) Glucose Level 81 MG/DL (74-106) Calcium Level 7.3 MG/DL (8.5-10.1) L Magnesium Level 1.5 MG/DL (1.8-2.4) L Total Bilirubin 0.1 MG/DL (0.2-1.0) L Aspartate Amino Transf (AST/SGOT) 30 U/L (15-37) Alanine Aminotransferase (ALT/SGPT) 36 U/L (12-78) Alkaline Phosphatase 132 U/L (46-116) H Total Protein 7.2 G/DL (6.4-8.2) Albumin 1.0 G/DL (3.4-5.0) L Globulin 6.2 g/dL Albumin/Globulin Ratio 0.2 (1.0-2.7) L Current Medications Medications (Trade) Dose Ordered Sig/Anna Route PRN Reason Start Time Stop Time Status Last Admin Dose Admin Acetaminophen (Tylenol) 650 mg Q4H PRN ORAL T>100.5 05/23/17 12:15 06/22/17 12:14 05/29/17 21:16 Albuterol/ Ipratropium (Albuterol/ Ipratropium) 3 ml Q4H PRN HHN Shortness of Breath 06/11/17 09:30 06/16/17 23:59 06/12/17 05:08 Albuterol/ Ipratropium (Albuterol/ Ipratropium) 3 ml Q6HRT HHN 06/11/17 13:00 06/16/17 23:59 06/13/17 07:34 Azithromycin (Zithromax) 600 mg DAILY ORAL 06/12/17 14:45 06/19/17 14:44 06/13/17 09:03 Dextrose (Dextrose 50%) STAT PRN IV Hypoglycemia 05/23/17 12:15 06/22/17 12:14 Divalproex Sodium (Depakote ER) 1,000 mg EVERY 12 HOURS ORAL 05/29/17 09:00 06/28/17 08:59 06/13/17 09:03 Docusate Sodium (Colace) 100 mg TWICE A DAY ORAL 06/08/17 18:00 07/08/17 17:59 06/11/17 10:03 Ethambutol HCl (Myambutol) 600 mg DAILY ORAL 06/12/17 14:45 07/12/17 14:44 06/13/17 09:04 Fluoxetine HCl (PROzac) 20 mg DAILY ORAL 05/27/17 09:00 06/26/17 08:59 06/13/17 09:03 Folic Acid (Folate) 1 mg DAILY ORAL 05/27/17 09:00 06/26/17 08:59 06/13/17 09:05 Heparin Sodium (Porcine) (Heparin 5000 units/ml) 5,000 units EVERY 12 HOURS SUBQ 05/23/17 21:00 06/22/17 20:59 06/12/17 21:23 Lactulose (Cephulac) 10 gm THREE TIMES A DAY ORAL 06/08/17 13:00 07/08/17 12:59 06/11/17 10:05 Magnesium Oxide (Mag-Ox 400mg) 500 mg THREE TIMES A DAY ORAL 06/12/17 19:30 07/12/17 19:29 06/13/17 09:03 Multivitamins (Multivitamins) 1 tab DAILY ORAL 05/31/17 09:00 06/30/17 08:59 06/13/17 09:04 Ondansetron HCl (Zofran) 4 mg Q6H PRN IVP Nausea & Vomiting 05/23/17 12:15 06/22/17 12:14 Polyethylene Glycol (Miralax) 17 gm DAILYPRN PRN ORAL Constipation 05/23/17 12:15 06/22/17 12:14 Prednisone (predniSONE) 50 mg DAILY ORAL 06/12/17 09:00 07/12/17 08:59 06/13/17 09:02 Ranitidine HCl (Zantac) 150 mg BEDTIME ORAL 05/26/17 21:00 06/25/17 20:59 06/12/17 21:21 Rifabutin (Mycobutin) 300 mg DAILY ORAL 06/12/17 14:45 07/12/17 14:44 06/13/17 09:04 Thiamine HCl (Vitamin B1) 100 mg DAILY ORAL 05/31/17 09:00 06/30/17 08:59 06/13/17 09:02 Trimethoprim/ Sulfamethoxazole (Bactrim-DS) 1.5 ea TID ORAL 06/12/17 14:45 06/19/17 14:44 06/13/17 09:06 Haydee Tucker M.D. Jun 13, 2017 09:33
[2017-06-13 12:50] VITALS: BP 135/79
[2017-06-13 16:29] VITALS: BP 108/70
--- NOTE | 2017-06-13 19:29 | General Progress Note ---
Assessment/Plan Assessment/Plan ASSESSMENT/PLAN HIV with very low CD4 count Leukopenia 2/2 HIV Anemia 2/2 HIV, watch counts, transfuse if hgb below 7 -->Low folate level, continue PO folate Anemia 2/2 folic acid deficiency AFB + for Mycobacterium avium. To be confirmed with bone marrow bx 06/17/17 --> on abx for disseminated MAC MSSA PNA Interstitial lung disease acute hypoxemic RF severe protein calorie malnutrition diarrhea, better. C. diff negative. GI following alcohol dependence depression Subjective Allergies: Coded Allergies: No Known Allergies (Unverified , 05/23/17) All Systems: reviewed and negative except above Subjective NAD Objective Last 24 Hour Vital Signs Date Time Temp Pulse Resp B/P (MAP) Pulse Ox O2 Delivery O2 Flow Rate FiO2 06/13/17 16:29 97.5 96 18 108/70 99 Room Air 06/13/17 14:02 102 20 99 Venturi Mask 4.0 30 06/13/17 13:52 101 18 99 Venturi Mask 4.0 30 06/13/17 12:50 98.4 87 18 135/79 97 Room Air 06/13/17 08:48 97.2 84 15 121/83 100 06/13/17 07:36 Nasal Cannula 4.0 36 06/13/17 07:36 88 20 98 Nasal Cannula 4.0 36 06/13/17 07:29 84 20 94 Room Air 21 06/13/17 07:28 94 Room Air 21 06/13/17 04:00 99 Room Air 06/13/17 03:59 98.3 57 20 121/63 99 Room Air 06/13/17 01:45 Nasal Cannula 4.0 36 06/13/17 01:45 Nasal Cannula 4.0 36 06/13/17 00:05 100 Room Air 06/13/17 00:05 98.1 81 20 117/77 100 Room Air 06/12/17 22:11 87 20 96 Nasal Cannula 4.0 36 06/12/17 22:11 Nasal Cannula 4.0 36 06/12/17 22:11 96 Nasal Cannula 4.0 36 06/12/17 22:00 87 20 96 Nasal Cannula 4.0 36 06/12/17 20:14 96.8 87 20 117/75 99 Room Air 06/12/17 20:14 99 Room Air Intake and Output 06/12/17 06/13/17 19:00 07:00 Intake Total 1100 ml Output Total 200 ml 200 ml Balance 900 ml -200 ml Intake Oral 1100 ml Output Urine Total 200 ml 200 ml # Voids 3 3 Laboratory Tests 06/13/17 05:25: White Blood Count 2.6L, Red Blood Count 2.55L, Hemoglobin 7.8L, Hematocrit 23.5L , Mean Corpuscular Volume 92, Mean Corpuscular Hemoglobin 30.4, Mean Corpuscular Hemoglobin Concent 33.1, Red Cell Distribution Width 14.0, Platelet Count 343, Mean Platelet Volume 6.2L, Neutrophils (%) (Auto) , Lymphocytes (%) ( Auto) , Monocytes (%) (Auto) , Eosinophils (%) (Auto) , Basophils (%) (Auto) , Differential Total Cells Counted 100, Neutrophils % (Manual) 70, Lymphocytes % ( Manual) 18L, Monocytes % (Manual) 10, Eosinophils % (Manual) 2, Basophils % ( Manual) 0, Band Neutrophils 0, Platelet Estimate Adequate, Platelet Morphology Normal, Hypochromasia 1+, Sodium Level 140, Potassium Level 3.6, Chloride Level 105, Carbon Dioxide Level 32, Anion Gap 3L, Blood Urea Nitrogen 16, Creatinine 0.5L, Estimat Glomerular Filtration Rate > 60, Glucose Level 81, Calcium Level 7.3L, Magnesium Level 1.5L, Total Bilirubin 0.1L, Aspartate Amino Transf (AST/ SGOT) 30, Alanine Aminotransferase (ALT/SGPT) 36, Alkaline Phosphatase 132H, Total Protein 7.2, Albumin 1.0L, Globulin 6.2, Albumin/Globulin Ratio 0.2L Height (Feet): 5 Height (Inches): 10.00 Weight (Pounds): 90 General Appearance: no apparent distress EENT: normal ENT inspection Neck: normal alignment Cardiovascular: normal peripheral pulses Pelvis: normal external exam Neurologic: discharge specialist II-XII 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 Skin: normal pigmentation Nikhil Woodward Jun 13, 2017 19:29
[2017-06-13 20:00] VITALS: BP 120/78
--- NOTE | 2017-06-13 21:12 | General Progress Note ---
Assessment/Plan Assessment/Plan Assessment - Failure to thrive - anorexia - anemia - PNA - MAC infection - Diarrhea - HIV Recommendations - Push po - OOB - Follow labs - MVI Subjective Allergies: Coded Allergies: No Known Allergies (Unverified , 05/23/17) Subjective no abdominal complaints poor appetite dislikes hospital food resting comfortably Objective Last 24 Hour Vital Signs Date Time Temp Pulse Resp B/P (MAP) Pulse Ox O2 Delivery O2 Flow Rate FiO2 06/13/17 21:10 Nasal Cannula 4.0 36 06/13/17 21:09 85 18 Nasal Cannula 4.0 36 06/13/17 21:09 95 Room Air 21 06/13/17 21:09 Nasal Cannula 4.0 36 06/13/17 20:00 95 Room Air 06/13/17 20:00 97.9 96 18 120/78 95 06/13/17 16:29 97.5 96 18 108/70 99 Room Air 06/13/17 14:02 102 20 99 Venturi Mask 4.0 30 06/13/17 13:52 101 18 99 Venturi Mask 4.0 30 06/13/17 12:50 98.4 87 18 135/79 97 Room Air 06/13/17 08:48 97.2 84 15 121/83 100 06/13/17 07:36 Nasal Cannula 4.0 36 06/13/17 07:36 88 20 98 Nasal Cannula 4.0 36 06/13/17 07:29 84 20 94 Room Air 06/13/17 07:28 94 Room Air 06/13/17 04:00 99 Room Air 06/13/17 03:59 98.3 57 20 121/63 99 Room Air 06/13/17 01:45 Nasal Cannula 4.0 36 06/13/17 01:45 Nasal Cannula 4.0 36 06/13/17 00:05 100 Room Air 06/13/17 00:05 98.1 81 20 117/77 100 Room Air 06/12/17 22:11 87 20 96 Nasal Cannula 4.0 36 06/12/17 22:11 Nasal Cannula 4.0 36 06/12/17 22:11 96 Nasal Cannula 4.0 36 06/12/17 22:00 87 20 96 Nasal Cannula 4.0 36 Intake and Output 06/12/17 06/13/17 19:00 07:00 Intake Total 1100 ml Output Total 200 ml 200 ml Balance 900 ml -200 ml Intake Oral 1100 ml Output Urine Total 200 ml 200 ml # Voids 3 3 Laboratory Tests 06/13/17 05:25: White Blood Count 2.6L, Red Blood Count 2.55L, Hemoglobin 7.8L, Hematocrit 23.5L , Mean Corpuscular Volume 92, Mean Corpuscular Hemoglobin 30.4, Mean Corpuscular Hemoglobin Concent 33.1, Red Cell Distribution Width 14.0, Platelet Count 343, Mean Platelet Volume 6.2L, Neutrophils (%) (Auto) , Lymphocytes (%) ( Auto) , Monocytes (%) (Auto) , Eosinophils (%) (Auto) , Basophils (%) (Auto) , Differential Total Cells Counted 100, Neutrophils % (Manual) 70, Lymphocytes % ( Manual) 18L, Monocytes % (Manual) 10, Eosinophils % (Manual) 2, Basophils % ( Manual) 0, Band Neutrophils 0, Platelet Estimate Adequate, Platelet Morphology Normal, Hypochromasia 1+, Sodium Level 140, Potassium Level 3.6, Chloride Level 105, Carbon Dioxide Level 32, Anion Gap 3L, Blood Urea Nitrogen 16, Creatinine 0.5L, Estimat Glomerular Filtration Rate > 60, Glucose Level 81, Calcium Level 7.3L, Magnesium Level 1.5L, Total Bilirubin 0.1L, Aspartate Amino Transf (AST/ SGOT) 30, Alanine Aminotransferase (ALT/SGPT) 36, Alkaline Phosphatase 132H, Total Protein 7.2, Albumin 1.0L, Globulin 6.2, Albumin/Globulin Ratio 0.2L Height (Feet): 5 Height (Inches): 10.00 Weight (Pounds): 90 Objective Thin AA man NCAT supple CTA RRR Abd soft ND no edema CELESTINO KIMBROUGH Jun 13, 2017 21:12
[2017-06-14] VITALS: BP 131/82
[2017-06-14] MEDS: Albuterol/Ipratropium 3ml neb HHN SCH ×4 (00:47→19:42)
[2017-06-14 04:00] VITALS: BP 133/82
[2017-06-14 08:00] VITALS: BP 120/79
[2017-06-14] MEDS: Lactulose 10gm/15ml UDC ORAL SCH ×3 (09:00→17:14)
[2017-06-14] MEDS: Docusate 100mg cap ORAL SCH ×2 (09:00→17:14)
[2017-06-14] MEDS: Azithromycin 600mg Tab ORAL SCH (09:50)
[2017-06-14] MEDS: Rifabutin 150mg cap ORAL SCH (09:52)
[2017-06-14] MEDS: Bactrim-DS 1 tab ORAL SCH ×3 (09:52→18:07)
[2017-06-14] MEDS: Heparin 5000 units/ml inj SUBQ SCH ×2 (10:17→20:46)
[2017-06-14] MEDS: Magnesium Oxide 400mg tab ORAL SCH ×3 (10:17→17:14)
[2017-06-14] MEDS: Thiamine 100mg tab ORAL SCH (10:17)
[2017-06-14] MEDS: Depakote ER 500mg tab ORAL SCH ×2 (10:17→20:42)
[2017-06-14 12:00] VITALS: BP 119/75
--- NOTE | 2017-06-14 15:40 | General Progress Note ---
Assessment/Plan Assessment/Plan Assessment - Failure to thrive - anorexia - anemia - needs repeat H&H - PNA - MAC infection - Diarrhea - HIV Recommendations - Push po - OOB - Repeat CBC - MVI Subjective Allergies: Coded Allergies: No Known Allergies (Unverified , 05/23/17) Subjective no abdominal complaints poor appetite resting comfortably Objective Last 24 Hour Vital Signs Date Time Temp Pulse Resp B/P (MAP) Pulse Ox O2 Delivery O2 Flow Rate FiO2 06/14/17 12:53 86 18 98 Venturi Mask 8.0 40 06/14/17 12:44 82 16 96 Venturi Mask 8.0 40 06/14/17 12:00 97.3 94 20 119/75 97 Nasal Cannula 2.0 06/14/17 08:14 89 18 98 Venturi Mask 8.0 40 06/14/17 08:04 Venturi Mask 8.0 40 06/14/17 08:04 85 16 96 Venturi Mask 8.0 40 06/14/17 08:04 96 Nasal Cannula 8.0 40 06/14/17 08:00 97.0 103 20 120/79 99 Nasal Cannula 2.0 06/14/17 04:00 96 Nasal Cannula 2.0 06/14/17 04:00 97.7 88 18 133/82 Nasal Cannula 06/14/17 00:55 93 18 99 Venturi Mask 8.0 40 06/14/17 00:48 88 18 98 Venturi Mask 4.0 30 06/14/17 00:00 99 Nasal Cannula 2.0 06/14/17 00:00 97.6 93 20 131/82 99 Nasal Cannula 06/13/17 21:11 Nasal Cannula 4.0 36 06/13/17 21:10 Venturi Mask 8.0 30 06/13/17 21:09 85 18 Nasal Cannula 4.0 36 06/13/17 21:09 95 Room Air 21 06/13/17 21:09 Nasal Cannula 4.0 36 06/13/17 20:00 95 Room Air 06/13/17 20:00 97.9 96 18 120/78 95 06/13/17 16:29 97.5 96 18 108/70 99 Room Air Intake and Output 06/13/17 06/14/17 19:00 07:00 Intake Total 1800 ml Output Total 500 ml 800 ml Balance 1300 ml -800 ml Intake Oral 1800 ml Output Urine Total 500 ml 800 ml # Voids 2 Height (Feet): 5 Height (Inches): 10.00 Weight (Pounds): 90 Objective Thin AA man NCAT supple CTA RRR Abd soft ND no edema CELESTINO KIMBROUGH Jun 14, 2017 15:40
[2017-06-14 16:00] VITALS: BP 110/76
--- NOTE | 2017-06-14 18:44 | General Progress Note ---
Assessment/Plan Assessment/Plan ASSESSMENT/PLAN HIV with very low CD4 count Leukopenia 2/2 HIV Anemia 2/2 HIV, watch counts, transfuse if hgb below 7 -->Low folate level, continue PO folate Anemia 2/2 folic acid deficiency AFB + for Mycobacterium avium. To be confirmed with bone marrow bx 06/17/17 --> on abx for disseminated MAC MSSA PNA Interstitial lung disease acute hypoxemic RF severe protein calorie malnutrition diarrhea, better. C. diff negative. GI following alcohol dependence depression Subjective Allergies: Coded Allergies: No Known Allergies (Unverified , 05/23/17) All Systems: reviewed and negative except above Subjective refusing meds, bmbx sched 06/16 Objective Last 24 Hour Vital Signs Date Time Temp Pulse Resp B/P (MAP) Pulse Ox O2 Delivery O2 Flow Rate FiO2 06/14/17 16:00 98.1 82 20 110/76 93 Nasal Cannula 2.0 06/14/17 12:53 86 18 98 Venturi Mask 8.0 40 06/14/17 12:44 82 16 96 Venturi Mask 8.0 40 06/14/17 12:00 97.3 94 20 119/75 97 Nasal Cannula 2.0 06/14/17 08:14 89 18 98 Venturi Mask 8.0 40 06/14/17 08:04 Venturi Mask 8.0 40 06/14/17 08:04 85 16 96 Venturi Mask 8.0 40 06/14/17 08:04 96 Nasal Cannula 8.0 40 06/14/17 08:00 97.0 103 20 120/79 99 Nasal Cannula 2.0 06/14/17 04:00 96 Nasal Cannula 2.0 06/14/17 04:00 97.7 88 18 133/82 Nasal Cannula 06/14/17 00:55 93 18 99 Venturi Mask 8.0 40 06/14/17 00:48 88 18 98 Venturi Mask 4.0 30 06/14/17 00:00 99 Nasal Cannula 2.0 06/14/17 00:00 97.6 93 20 131/82 99 Nasal Cannula 06/13/17 21:11 Nasal Cannula 4.0 36 06/13/17 21:10 Venturi Mask 8.0 30 06/13/17 21:09 85 18 Nasal Cannula 4.0 36 06/13/17 21:09 95 Room Air 21 06/13/17 21:09 Nasal Cannula 4.0 36 06/13/17 20:00 95 Room Air 06/13/17 20:00 97.9 96 18 120/78 95 Intake and Output 06/13/17 06/14/17 19:00 07:00 Intake Total 1800 ml Output Total 500 ml 800 ml Balance 1300 ml -800 ml Intake Oral 1800 ml Output Urine Total 500 ml 800 ml # Voids 2 Height (Feet): 5 Height (Inches): 10.00 Weight (Pounds): 90 General Appearance: no apparent distress EENT: normal ENT inspection Neck: normal alignment Abdomen: normal bowel sounds Neurologic: partition notcher II-XII 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, no motor/sensory deficits Nikhil Woodward Jun 14, 2017 18:44
[2017-06-14 20:00] VITALS: BP 101/67
[2017-06-15] VITALS: BP 111/71
[2017-06-15] MEDS: Albuterol/Ipratropium 3ml neb HHN SCH ×5 (01:10→23:54)
[2017-06-15 04:00] VITALS: BP 110/70
[2017-06-15 07:26] LABS: HEMOGLOBIN 8.3 G/DL (14.2-18.0); MEAN CORPUSCULAR VOLUME 90 FL (80-99); PLATELET COUNT 227 K/UL (150-450); RED BLOOD COUNT 2.79 M/UL (4.70-6.10); RED CELL DISTRIBUTION WIDTH 13.6 % (11.6-14.8); WHITE BLOOD COUNT 3.5 K/UL (4.8-10.8)
[2017-06-15 08:00] VITALS: BP 104/73
[2017-06-15] MEDS: Lactulose 10gm/15ml UDC ORAL SCH ×3 (09:00→18:00)
[2017-06-15] MEDS: Depakote ER 500mg tab ORAL SCH ×2 (09:00→20:41)
[2017-06-15] MEDS: Magnesium Oxide 400mg tab ORAL SCH ×3 (09:00→18:00)
[2017-06-15] MEDS: Docusate 100mg cap ORAL SCH ×2 (09:00→18:00)
[2017-06-15] MEDS: Thiamine 100mg tab ORAL SCH (09:00)
[2017-06-15] MEDS: Bactrim-DS 1 tab ORAL SCH (09:35)
[2017-06-15] MEDS: Azithromycin 600mg Tab ORAL SCH (09:35)
[2017-06-15] MEDS: Rifabutin 150mg cap ORAL SCH (09:35)
[2017-06-15] MEDS: Heparin 5000 units/ml inj SUBQ SCH ×2 (09:46→20:41)
--- NOTE | 2017-06-15 10:06 | Infectious Diseases Prog Note ---
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 Typicall isolated MAC infection is seen in immunocompetent patients. Given he is HIV with probably AIDS with a low CD4 as very low lymphocyte counts (CD4 unable to be calculated) and his clinical presentation of wt loss, intermittent fevers, leukopenia/anemia , pulmonary infiltrates are very suggestive of the diagnosis. Diagnosis is confirmed by either isolation of MAC from blood and/or bone marrow. Also possible concomitant PCP given extensive GGO, and possible hypoxia (patient refusing ABG) Pneumonia. . Sp Cx : MSSA SP Rx - s/p Bronchoscopy 06/10: friable mucosa, mild mucoid secretions; cx normal [place] -BAL cytology: rare atypical cells. Neg GMS and PCP stain CT of Abd /Bilateral pulmonary alveolar infiltrates consistent with pneumonia.- patient not hypoxic, not febrile- lower suspicion PCP AFBx 3 : Neg ( 3rd from 05/26 not in EMR ) now AFB Cx 06/16 05/25 : +MAC; MTB PCR : Neg T Spot : neg Crytpo and blastomycosis: JOHANNA Neg ; RF + histo ab, Cocci ab : neg CT: Extensive interstitial and airspace parenchymal disease, and honeycomb appearance of much of the lower lobe and right middle lobe interstitial component, HIV/AIDS: first test negative repeat, repeat +; awaiting VL; CD4 unable to be calculated due to low absolute lymphocyte count -Hep a immune -Hep b not immune, neg hep C -RPR neg -GC/CL neg Chronic diarrhea resolved, now constipated Stool for ova and parasite ( ? sent ) stool Cx : neg ? pancreatic insufficiency due to chronic alcohol abuse. also possibley due to disseminated MAC Elevated ESR , CRP and RF JOHANNA : neg Leukopenia/anemia Anemia and leukopenia PLAN: -D/C Bactrim ~20mg/kg qd #4 (Bactrim DS 1.5 tab tid) as neg PCP stain on BAL cytology- switch to PCP Px dose -Continue tx for possible disseminated MAC with Azithromycin 600mg qd, Rifabutin 300mg qd and Ethambutol 600mg qd #4 -f/u AFB bcx -for bone marrow biopsy on 06/17 and send tissue for path, AFB and fungal cx -Will start ARV within the next 2 weeks: regimen will be Truvada and Dolutegravir while awaiting HIV genotype -f/u HIV VL, genotype -f/u BAL cx (bacterial,f ungal, AFB, PCP DFA), HLA b 27 -repeat CD4 as lymphocyte count improving - geriatric case manager consulted to start working on HIV clinic to continue HIV and MAC to be set up prior to discharge; risk of readmission if not follow up with a HIV provider upon discharge. 06/05 SP Ancef d# 10 / 10 05/30 SP Zithromax d# 5 / 5 06/01 SP ( refusing) Flagyl d# 46 05/27 SP vancomycin, cefepime d# 5, Monitor CBC/CMP Fungal and AFB blood Cx Discussed with RN Subjective Allergies: Coded Allergies: No Known Allergies (Unverified , 05/23/17) Subjective afebrile lymphocytic count improving awaiting AFB bcx, HIV VL and genotype started on MAC tx and empiric pCP tx for bone marrow bx on thursday Objective Vital Signs Last 24 Hour Vital Signs Date Time Temp Pulse Resp B/P (MAP) Pulse Ox O2 Delivery O2 Flow Rate FiO2 06/15/17 08:53 72 24 99 Venturi Mask 8.0 40 06/15/17 08:40 72 24 99 Venturi Mask 8.0 40 06/15/17 07:01 Venturi Mask 8.0 40 06/15/17 07:01 76 Venturi Mask 8.0 40 06/15/17 04:00 97.5 79 20 110/70 100 06/15/17 01:18 98 20 98 Venturi Mask 8.0 40 06/15/17 01:10 101 24 96 Venturi Mask 8.0 40 06/15/17 00:00 97.5 104 21 111/71 100 06/14/17 20:00 97.7 104 20 101/67 100 06/14/17 19:52 96 20 96 Venturi Mask 8.0 40 06/14/17 19:42 104 20 94 Room Air 21 06/14/17 19:42 Room Air 21 06/14/17 19:42 94 Room Air 21 06/14/17 16:00 98.1 82 20 110/76 93 Nasal Cannula 2.0 06/14/17 12:53 86 18 98 Venturi Mask 8.0 40 06/14/17 12:44 82 16 96 Venturi Mask 8.0 40 06/14/17 12:00 97.3 94 20 119/75 97 Nasal Cannula 2.0 Height (Feet): 5 Height (Inches): 10.00 Weight (Pounds): 90 Objective General Appearance: no acute distress, cachetic HEENT: normocephalic, atraumatic, mucous membranes moist Respiratory/Chest: chest wall non-tender, rhonchi - scattered but with improved air movement Cardiovascular: normal peripheral pulses, regular rhythm, regularly irregular Abdomen: normal bowel sounds, soft, non tender, no organomegaly, non distended Extremities: no cyanosis, no clubbing, no edema Laboratory Tests Test 06/15/17 05:10 White Blood Count 3.5 K/UL (4.8-10.8) L Red Blood Count 2.79 M/UL (4.70-6.10) L Hemoglobin 8.3 G/DL (14.2-18.0) L Hematocrit 25.0 % (42.0-52.0) L Mean Corpuscular Volume 90 FL (80-99) Mean Corpuscular Hemoglobin 29.6 PG (27.0-31.0) Mean Corpuscular Hemoglobin Concent 33.1 G/DL (32.0-36.0) Red Cell Distribution Width 13.6 % (11.6-14.8) Platelet Count 227 K/UL (150-450) Mean Platelet Volume 7.6 FL (6.5-10.1) Neutrophils (%) (Auto) % (45.0-75.0) Lymphocytes (%) (Auto) % (20.0-45.0) Monocytes (%) (Auto) % (1.0-10.0) Eosinophils (%) (Auto) % (0.0-3.0) Basophils (%) (Auto) % (0.0-2.0) Neutrophils % (Manual) Pending Lymphocytes % (Manual) Pending Platelet Estimate Pending Platelet Morphology Pending Current Medications Medications (Trade) Dose Ordered Sig/Anna Route PRN Reason Start Time Stop Time Status Last Admin Dose Admin Acetaminophen (Tylenol) 650 mg Q4H PRN ORAL T>100.5 05/23/17 12:15 06/22/17 12:14 05/29/17 21:16 Albuterol/ Ipratropium (Albuterol/ Ipratropium) 3 ml Q4H PRN HHN Shortness of Breath 06/11/17 09:30 06/16/17 23:59 06/12/17 05:08 Albuterol/ Ipratropium (Albuterol/ Ipratropium) 3 ml Q6HRT HHN 06/11/17 13:00 06/16/17 23:59 06/15/17 08:40 Azithromycin (Zithromax) 600 mg DAILY ORAL 06/12/17 14:45 06/19/17 14:44 06/15/17 09:35 Dextrose (Dextrose 50%) STAT PRN IV Hypoglycemia 05/23/17 12:15 06/22/17 12:14 Divalproex Sodium (Depakote ER) 1,000 mg EVERY 12 HOURS ORAL 05/29/17 09:00 06/28/17 08:59 06/13/17 20:47 Docusate Sodium (Colace) 100 mg TWICE A DAY ORAL 06/08/17 18:00 07/08/17 17:59 06/11/17 10:03 Ethambutol HCl (Myambutol) 600 mg DAILY ORAL 06/12/17 14:45 07/12/17 14:44 06/15/17 09:37 Fluoxetine HCl (PROzac) 20 mg DAILY ORAL 05/27/17 09:00 06/26/17 08:59 06/14/17 09:52 Folic Acid (Folate) 1 mg DAILY ORAL 05/27/17 09:00 06/26/17 08:59 06/14/17 09:51 Heparin Sodium (Porcine) (Heparin 5000 units/ml) 5,000 units EVERY 12 HOURS SUBQ 05/23/17 21:00 06/22/17 20:59 06/15/17 09:46 Lactulose (Cephulac) 10 gm THREE TIMES A DAY ORAL 06/08/17 13:00 07/08/17 12:59 06/11/17 10:05 Magnesium Oxide (Mag-Ox 400mg) 500 mg THREE TIMES A DAY ORAL 06/12/17 19:30 07/12/17 19:29 06/13/17 12:13 Multivitamins (Multivitamins) 1 tab DAILY ORAL 05/31/17 09:00 06/30/17 08:59 06/13/17 09:04 Ondansetron HCl (Zofran) 4 mg Q6H PRN IVP Nausea & Vomiting 05/23/17 12:15 06/22/17 12:14 Polyethylene Glycol (Miralax) 17 gm DAILYPRN PRN ORAL Constipation 05/23/17 12:15 06/22/17 12:14 Prednisone (predniSONE) 50 mg DAILY ORAL 06/12/17 09:00 07/12/17 08:59 06/13/17 09:02 Ranitidine HCl (Zantac) 150 mg BEDTIME ORAL 05/26/17 21:00 06/25/17 20:59 06/13/17 20:47 Rifabutin (Mycobutin) 300 mg DAILY ORAL 06/12/17 14:45 07/12/17 14:44 06/15/17 09:35 Thiamine HCl (Vitamin B1) 100 mg DAILY ORAL 05/31/17 09:00 06/30/17 08:59 06/13/17 09:02 Trimethoprim/ Sulfamethoxazole (Bactrim-DS) 1.5 ea TID ORAL 06/12/17 14:45 06/19/17 14:44 06/15/17 09:35 Haydee Tucker M.D. Jun 15, 2017 10:06
[2017-06-15 12:00] VITALS: BP 109/72
[2017-06-15 16:00] VITALS: BP 104/70
--- NOTE | 2017-06-15 17:32 | General Progress Note ---
Assessment/Plan Assessment/Plan Assessment - Failure to thrive - anorexia - anemia - needs repeat H&H - PNA - MAC infection - Diarrhea - HIV Recommendations - Push po - OOB - Repeat CBC - MVI Subjective Allergies: Coded Allergies: No Known Allergies (Unverified , 05/23/17) Subjective no abdominal complaints poor appetite resting comfortably Objective Last 24 Hour Vital Signs Date Time Temp Pulse Resp B/P (MAP) Pulse Ox O2 Delivery O2 Flow Rate FiO2 06/15/17 16:00 97.5 104 20 104/70 100 Venturi Mask 8.0 06/15/17 13:37 77 24 99 Venturi Mask 8.0 40 06/15/17 13:31 77 24 98 Venturi Mask 8.0 40 06/15/17 12:00 97.6 93 20 109/72 100 Venturi Mask 8.0 06/15/17 08:53 72 24 99 Venturi Mask 8.0 40 06/15/17 08:40 72 24 99 Venturi Mask 8.0 40 06/15/17 08:00 97.5 67 20 104/73 100 Venturi Mask 8.0 06/15/17 07:01 Venturi Mask 8.0 40 06/15/17 07:01 76 Venturi Mask 8.0 40 06/15/17 04:00 97.5 79 20 110/70 100 06/15/17 01:18 98 20 98 Venturi Mask 8.0 40 06/15/17 01:10 101 24 96 Venturi Mask 8.0 40 06/15/17 00:00 97.5 104 21 111/71 100 06/14/17 20:00 97.7 104 20 101/67 100 06/14/17 19:52 96 20 96 Venturi Mask 8.0 40 06/14/17 19:42 104 20 94 Room Air 21 06/14/17 19:42 Room Air 21 06/14/17 19:42 94 Room Air 21 Intake and Output 06/14/17 06/15/17 19:00 07:00 Intake Total 960 ml Output Total 400 ml 850 ml Balance 560 ml -850 ml Intake Oral 960 ml Output Urine Total 400 ml 850 ml Laboratory Tests 06/15/17 05:10: White Blood Count 3.5L, Red Blood Count 2.79L, Hemoglobin 8.3L, Hematocrit 25.0L , Mean Corpuscular Volume 90, Mean Corpuscular Hemoglobin 29.6, Mean Corpuscular Hemoglobin Concent 33.1, Red Cell Distribution Width 13.6, Platelet Count 227, Mean Platelet Volume 7.6, Neutrophils (%) (Auto) , Lymphocytes (%) ( Auto) , Monocytes (%) (Auto) , Eosinophils (%) (Auto) , Basophils (%) (Auto) , Differential Total Cells Counted 100, Neutrophils % (Manual) 90H, Lymphocytes % (Manual) 6L, Monocytes % (Manual) 3, Eosinophils % (Manual) 0, Basophils % ( Manual) 0, Metamyelocytes % 1H, Band Neutrophils 0, Platelet Estimate Adequate, Platelet Morphology Normal, Clumped Platelets 2+, Hypochromasia 3+, Spherocytes 2+ Height (Feet): 5 Height (Inches): 10.00 Weight (Pounds): 90 Objective Thin AA man NCAT supple CTA RRR Abd soft ND no edema CELESTINO KIMBROUGH Jun 15, 2017 17:32
[2017-06-15 20:00] VITALS: BP 109/75
--- NOTE | 2017-06-15 20:16 | General Progress Note ---
Assessment/Plan Assessment/Plan ASSESSMENT/PLAN HIV with very low CD4 count Leukopenia 2/2 HIV Anemia 2/2 HIV, watch counts, transfuse if hgb below 7 -->Low folate level, continue PO folate Anemia 2/2 folic acid deficiency AFB + for Mycobacterium avium. To be confirmed with bone marrow bx 06/17/17 --> on abx for disseminated MAC MSSA PNA Interstitial lung disease acute hypoxemic RF severe protein calorie malnutrition diarrhea, better. C. diff negative. GI following alcohol dependence depression Subjective HEENT: Reports: no symptoms Cardiovascular: Reports: no symptoms Respiratory: Reports: no symptoms Gastrointestinal/Abdominal: Reports: no symptoms Genitourinary: Reports: no symptoms Neurologic/Psychiatric: Reports: no symptoms Endocrine: Reports: no symptoms Hematologic/Lymphatic: Reports: no symptoms Allergies: Coded Allergies: No Known Allergies (Unverified , 05/23/17) Subjective refusing meds, bmbx sched 06/16 Objective Last 24 Hour Vital Signs Date Time Temp Pulse Resp B/P (MAP) Pulse Ox O2 Delivery O2 Flow Rate FiO2 06/15/17 19:15 100 22 99 Venturi Mask 8.0 40 06/15/17 19:15 Venturi Mask 8.0 40 06/15/17 19:05 102 22 98 Venturi Mask 8.0 40 06/15/17 19:04 98 Venturi Mask 8.0 40 06/15/17 16:00 97.5 104 20 104/70 100 Venturi Mask 8.0 06/15/17 13:37 77 24 99 Venturi Mask 8.0 40 06/15/17 13:31 77 24 98 Venturi Mask 8.0 40 06/15/17 12:00 97.6 93 20 109/72 100 Venturi Mask 8.0 06/15/17 08:53 72 24 99 Venturi Mask 8.0 40 06/15/17 08:40 72 24 99 Venturi Mask 8.0 40 06/15/17 08:00 97.5 67 20 104/73 100 Venturi Mask 8.0 06/15/17 07:01 Venturi Mask 8.0 40 06/15/17 07:01 76 Venturi Mask 8.0 40 06/15/17 04:00 97.5 79 20 110/70 100 06/15/17 01:18 98 20 98 Venturi Mask 8.0 40 06/15/17 01:10 101 24 96 Venturi Mask 8.0 40 06/15/17 00:00 97.5 104 21 111/71 100 Intake and Output 06/14/17 06/15/17 19:00 07:00 Intake Total 960 ml Output Total 400 ml 850 ml Balance 560 ml -850 ml Intake Oral 960 ml Output Urine Total 400 ml 850 ml Laboratory Tests 06/15/17 05:10: White Blood Count 3.5L, Red Blood Count 2.79L, Hemoglobin 8.3L, Hematocrit 25.0L , Mean Corpuscular Volume 90, Mean Corpuscular Hemoglobin 29.6, Mean Corpuscular Hemoglobin Concent 33.1, Red Cell Distribution Width 13.6, Platelet Count 227, Mean Platelet Volume 7.6, Neutrophils (%) (Auto) , Lymphocytes (%) ( Auto) , Monocytes (%) (Auto) , Eosinophils (%) (Auto) , Basophils (%) (Auto) , Differential Total Cells Counted 100, Neutrophils % (Manual) 90H, Lymphocytes % (Manual) 6L, Monocytes % (Manual) 3, Eosinophils % (Manual) 0, Basophils % ( Manual) 0, Metamyelocytes % 1H, Band Neutrophils 0, Platelet Estimate Adequate, Platelet Morphology Normal, Clumped Platelets 2+, Hypochromasia 3+, Spherocytes 2+ Height (Feet): 5 Height (Inches): 10.00 Weight (Pounds): 90 General Appearance: no apparent distress EENT: TMs normal Neck: normal alignment Cardiovascular: normal rate Respiratory/Chest: lungs clear Abdomen: soft Extremities: normal inspection Nikhil Woodward Jun 15, 2017 20:16
[2017-06-16 04:00] VITALS: BP 104/71
[2017-06-16 08:00] VITALS: BP 106/73
[2017-06-16] MEDS: Heparin 5000 units/ml inj SUBQ SCH ×2 (09:00→21:00)
[2017-06-16] MEDS: Lactulose 10gm/15ml UDC ORAL SCH ×3 (09:00→17:52)
[2017-06-16] MEDS: Azithromycin 600mg Tab ORAL SCH (09:00)
[2017-06-16] MEDS: Magnesium Oxide 400mg tab ORAL SCH ×3 (09:00→17:52)
[2017-06-16] MEDS: Docusate 100mg cap ORAL SCH ×2 (09:00→17:52)
[2017-06-16] MEDS: Thiamine 100mg tab ORAL SCH (09:00)
[2017-06-16] MEDS: Bactrim-DS 1 tab ORAL SCH (09:00)
[2017-06-16] MEDS: Rifabutin 150mg cap ORAL SCH (09:55)
[2017-06-16] MEDS: Depakote ER 500mg tab ORAL SCH ×2 (09:58→21:00)
[2017-06-16 12:00] VITALS: BP 101/68
--- NOTE | 2017-06-16 12:24 | GI Progress Note ---
Assessment/Plan Problems: (1) Generalized weakness ICD Codes: R53.1 - Weakness SNOMED: 34772525 (2) Anemia ICD Codes: D64.9 - Anemia, unspecified SNOMED: 398846280 (3) Severe protein-calorie malnutrition ICD Codes: E43 - Unspecified severe protein-calorie malnutrition SNOMED: 379292187 (4) Atypical pneumonia ICD Codes: J18.9 - Pneumonia, unspecified organism SNOMED: 618416750 (5) Protein calorie malnutrition ICD Codes: E46 - Unspecified protein-calorie malnutrition SNOMED: 079016634 Qualifiers: Qualified Codes: E44.0 - Moderate protein-calorie malnutrition (6) Diarrhea ICD Codes: R19.7 - Diarrhea, unspecified SNOMED: 88217676 Qualifiers: Qualified Codes: R19.7 - Diarrhea, unspecified Status: unchanged Status Narrative Discussed with Dr. Gamez. Assessment/Plan CT chest reviewed. cdiff negative iron levels unremarkable HIV positive airborne r/o TB KUB r/o chronic pancreatitis >> unremarkable OB stool r/o GI bleed >> negative Tissue Transglutaminase IgA r/o celiac >> negative Failure to thrive anorexia anemia - needs repeat H&H PNA MAC infection Diarrhea vs constipation fu pulmonary, oncology recs cont bowel regime monitor H&H, prn transfusions bowel regime ppi folate PO H2B fu labs Subjective Subjective constipation Objective Last 24 Hour Vital Signs Date Time Temp Pulse Resp B/P (MAP) Pulse Ox O2 Delivery O2 Flow Rate FiO2 06/16/17 08:41 Room Air 06/16/17 08:38 Room Air 06/16/17 08:38 Room Air 06/16/17 08:37 97 Room Air 21 06/16/17 08:00 98.0 83 20 106/73 94 06/16/17 04:00 97.9 85 22 104/71 95 Venturi Mask 8.0 06/16/17 00:00 97 22 99 Venturi Mask 8.0 40 06/15/17 23:50 105 22 98 Venturi Mask 8.0 40 06/15/17 20:00 98.4 99 20 109/75 100 Venturi Mask 8.0 06/15/17 19:15 100 22 99 Venturi Mask 8.0 40 06/15/17 19:15 Venturi Mask 8.0 40 06/15/17 19:05 102 22 98 Venturi Mask 8.0 40 06/15/17 19:04 98 Venturi Mask 8.0 40 06/15/17 16:00 97.5 104 20 104/70 100 Venturi Mask 8.0 06/15/17 13:37 77 24 99 Venturi Mask 8.0 40 06/15/17 13:31 77 24 98 Venturi Mask 8.0 40 Intake and Output 06/15/17 06/16/17 19:00 07:00 Intake Total 400 ml 480 ml Output Total 600 ml Balance -200 ml 480 ml Intake Oral 400 ml 480 ml Output Urine Total 600 ml # Voids 3 3 Height (Feet): 5 Height (Inches): 10.00 Weight (Pounds): 90 General Appearance: WD/WN, no apparent distress, alert, thin Cardiovascular: normal rate Respiratory/Chest: normal breath sounds, no respiratory distress Abdominal Exam: normal bowel sounds, non tender, soft Extremities: normal range of motion, non-tender Alyssa Felix N.P. Jun 16, 2017 12:24
--- NOTE | 2017-06-16 13:50 | Infectious Diseases Prog Note ---
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 Typicall isolated MAC infection is seen in immunocompetent patients. Given he is HIV with probably AIDS with a low CD4 as very low lymphocyte counts (CD4 unable to be calculated) and his clinical presentation of wt loss, intermittent fevers, leukopenia/anemia , pulmonary infiltrates are very suggestive of the diagnosis. Diagnosis is confirmed by either isolation of MAC from blood and/or bone marrow. Also possible concomitant PCP given extensive GGO, and possible hypoxia (patient refusing ABG) Pneumonia. . Sp Cx : MSSA SP Rx - s/p Bronchoscopy 06/10: friable mucosa, mild mucoid secretions; cx normal [place] -BAL cytology: rare atypical cells. Neg GMS and PCP stain CT of Abd /Bilateral pulmonary alveolar infiltrates consistent with pneumonia.- patient not hypoxic, not febrile- lower suspicion PCP; PCP DFA neg AFBx 3 : Neg ( 3rd from 05/26 not in EMR ) now AFB Cx 06/16 05/25 : +MAC; MTB PCR : Neg T Spot : neg Crytpo and blastomycosis: JOHANNA Neg ; RF + histo ab, Cocci ab : neg CT: Extensive interstitial and airspace parenchymal disease, and honeycomb appearance of much of the lower lobe and right middle lobe interstitial component, HIV/AIDS: first test negative repeat, repeat +; awaiting VL; CD4 unable to be calculated due to low absolute lymphocyte count -Hep a immune -Hep b not immune, neg hep C -RPR neg -GC/CL neg Chronic diarrhea resolved, now constipated Stool for ova and parasite ( ? sent ) stool Cx : neg ? pancreatic insufficiency due to chronic alcohol abuse. also possibley due to disseminated MAC Elevated ESR , CRP and RF JOHANNA : neg Leukopenia/anemia Anemia and leukopenia PLAN: -Continue tx for possible disseminated MAC with Azithromycin 600mg qd, Rifabutin 300mg qd and Ethambutol 600mg qd #5 -f/u AFB bcx -for bone marrow biopsy on 06/17 and send tissue for path, AFB and fungal cx -Will start ARV within the next 2 weeks: regimen will be Truvada and Dolutegravir while awaiting HIV genotype -f/u HIV VL, genotype -f/u BAL cx (bacterial,f ungal, AFB, PCP DFA), HLA b 27 -repeat CD4 as lymphocyte count improving -continue Bactrim DS 1 tab qd for PCP ppx - rn case manager consulted to start working on HIV clinic to continue HIV and MAC to be set up prior to discharge; risk of readmission if not follow up with a HIV provider upon discharge. 06/15 Bactrim high dose #4 06/05 SP Ancef d# 10 / 10 05/30 SP Zithromax d# 5 / 5 06/01 SP ( refusing) Flagyl d# 46 05/27 SP vancomycin, cefepime d# 5, Monitor CBC/CMP Fungal and AFB blood Cx Discussed with RN Subjective Allergies: Coded Allergies: No Known Allergies (Unverified , 05/23/17) Subjective afebrile lymphocytic count improving awaiting AFB bcx, HIV VL and genotype started on MAC tx and empiric pCP tx for bone marrow bx on thursday Objective Vital Signs Last 24 Hour Vital Signs Date Time Temp Pulse Resp B/P (MAP) Pulse Ox O2 Delivery O2 Flow Rate FiO2 06/16/17 12:00 98.5 90 20 101/68 06/16/17 08:41 Room Air 06/16/17 08:38 Room Air 21 06/16/17 08:38 Room Air 06/16/17 08:37 97 Room Air 21 06/16/17 08:00 98.0 83 20 106/73 94 06/16/17 04:00 97.9 85 22 104/71 95 Venturi Mask 8.0 06/16/17 00:00 97 22 99 Venturi Mask 8.0 40 06/15/17 23:50 105 22 98 Venturi Mask 8.0 40 06/15/17 20:00 98.4 99 20 109/75 100 Venturi Mask 8.0 06/15/17 19:15 100 22 99 Venturi Mask 8.0 40 06/15/17 19:15 Venturi Mask 8.0 40 06/15/17 19:05 102 22 98 Venturi Mask 8.0 40 06/15/17 19:04 98 Venturi Mask 8.0 40 06/15/17 16:00 97.5 104 20 104/70 100 Venturi Mask 8.0 Height (Feet): 5 Height (Inches): 10.00 Weight (Pounds): 90 Objective General Appearance: no acute distress, cachetic HEENT: normocephalic, atraumatic, mucous membranes moist Respiratory/Chest: chest wall non-tender, rhonchi - scattered but with improved air movement Cardiovascular: normal peripheral pulses, regular rhythm, regularly irregular Abdomen: normal bowel sounds, soft, non tender, no organomegaly, non distended Extremities: no cyanosis, no clubbing, no edema Current Medications Medications (Trade) Dose Ordered Sig/Anna Route PRN Reason Start Time Stop Time Status Last Admin Dose Admin Acetaminophen (Tylenol) 650 mg Q4H PRN ORAL T>100.5 05/23/17 12:15 06/22/17 12:14 05/29/17 21:16 Albuterol/ Ipratropium (Albuterol/ Ipratropium) 3 ml Q4H PRN N Shortness of Breath 06/11/17 09:30 06/16/17 23:59 06/12/17 05:08 Albuterol/ Ipratropium (Albuterol/ Ipratropium) 3 ml Q6HRT N 06/11/17 13:00 06/16/17 23:59 06/15/17 23:54 Azithromycin (Zithromax) 600 mg DAILY ORAL 06/12/17 14:45 06/19/17 14:44 06/16/17 09:00 Dextrose (Dextrose 50%) STAT PRN IV Hypoglycemia 05/23/17 12:15 06/22/17 12:14 Divalproex Sodium (Depakote ER) 1,000 mg EVERY 12 HOURS ORAL 05/29/17 09:00 06/28/17 08:59 06/16/17 09:58 Docusate Sodium (Colace) 100 mg TWICE A DAY ORAL 06/08/17 18:00 07/08/17 17:59 06/11/17 10:03 Ethambutol HCl (Myambutol) 600 mg DAILY ORAL 06/12/17 14:45 07/12/17 14:44 06/16/17 09:57 Fluoxetine HCl (PROzac) 20 mg DAILY ORAL 05/27/17 09:00 06/26/17 08:59 06/16/17 09:56 Folic Acid (Folate) 1 mg DAILY ORAL 05/27/17 09:00 06/26/17 08:59 06/16/17 09:00 Heparin Sodium (Porcine) (Heparin 5000 units/ml) 5,000 units EVERY 12 HOURS SUBQ 05/23/17 21:00 06/22/17 20:59 06/15/17 09:46 Lactulose (Cephulac) 10 gm THREE TIMES A DAY ORAL 06/08/17 13:00 07/08/17 12:59 06/11/17 10:05 Magnesium Oxide (Mag-Ox 400mg) 500 mg THREE TIMES A DAY ORAL 06/12/17 19:30 07/12/17 19:29 06/16/17 09:00 Multivitamins (Multivitamins) 1 tab DAILY ORAL 05/31/17 09:00 06/30/17 08:59 06/16/17 09:00 Ondansetron HCl (Zofran) 4 mg Q6H PRN IVP Nausea & Vomiting 05/23/17 12:15 06/22/17 12:14 Polyethylene Glycol (Miralax) 17 gm DAILYPRN PRN ORAL Constipation 05/23/17 12:15 06/22/17 12:14 Prednisone (predniSONE) 50 mg DAILY ORAL 06/12/17 09:00 07/12/17 08:59 06/16/17 09:00 Ranitidine HCl (Zantac) 150 mg BEDTIME ORAL 05/26/17 21:00 06/25/17 20:59 06/13/17 20:47 Rifabutin (Mycobutin) 300 mg DAILY ORAL 06/12/17 14:45 07/12/17 14:44 06/16/17 09:55 Thiamine HCl (Vitamin B1) 100 mg DAILY ORAL 05/31/17 09:00 06/30/17 08:59 06/16/17 09:00 Trimethoprim/ Sulfamethoxazole (Bactrim-DS) 1 ea DAILY ORAL 06/16/17 09:00 06/23/17 08:59 06/16/17 09:00 Haydee Tucker M.D. Jun 16, 2017 13:50
[2017-06-16 16:00] VITALS: BP 106/69
--- NOTE | 2017-06-16 17:35 | Pulmonology Progress Note ---
Assessment/Plan Problems: (1) Atypical pneumonia (2) Severe protein-calorie malnutrition (3) Interstitial lung disease (4) Diarrhea Assessment/Plan PPD negative HIV negative Id note appreciated diarrhea improving might need lung biopsy /open lung biopsy if AFB X3 negative Subjective ROS Limited/Unobtainable: No Allergies: Coded Allergies: No Known Allergies (Unverified , 05/23/17) Objective Last 24 Hour Vital Signs Date Time Temp Pulse Resp B/P (MAP) Pulse Ox O2 Delivery O2 Flow Rate FiO2 06/16/17 16:00 98.0 88 18 106/69 98 06/16/17 12:00 98.5 90 20 101/68 06/16/17 08:41 Room Air 06/16/17 08:38 Room Air 21 06/16/17 08:38 Room Air 06/16/17 08:37 97 Room Air 21 06/16/17 08:00 98.0 83 20 106/73 94 06/16/17 04:00 97.9 85 22 104/71 95 Venturi Mask 8.0 06/16/17 00:00 97 22 99 Venturi Mask 8.0 40 06/15/17 23:50 105 22 98 Venturi Mask 8.0 40 06/15/17 20:00 98.4 99 20 109/75 100 Venturi Mask 8.0 06/15/17 19:15 100 22 99 Venturi Mask 8.0 40 06/15/17 19:15 Venturi Mask 8.0 40 06/15/17 19:05 102 22 98 Venturi Mask 8.0 40 06/15/17 19:04 98 Venturi Mask 8.0 40 Intake and Output 06/15/17 06/16/17 19:00 07:00 Intake Total 400 ml 480 ml Output Total 600 ml Balance -200 ml 480 ml Intake Oral 400 ml 480 ml Output Urine Total 600 ml # Voids 3 3 Objective General Appearance: cachetic Lines, tubes and drains: peripheral HEENT: normocephalic, atraumatic Neck: non-tender, normal alignment Respiratory/Chest: chest wall non-tender, lungs clear Breasts: no masses Cardiovascular/Chest: normal peripheral pulses Abdomen: normal bowel sounds, non tender Genitourinary/Rectal: normal genital exam Extremities: normal range of motion Skin Exam: normal pigmentation Neurologic: 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 II-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 Lymphatic: anterior cervical Current Medications Medications (Trade) Dose Ordered Sig/Anna Route PRN Reason Start Time Stop Time Status Last Admin Dose Admin Acetaminophen (Tylenol) 650 mg Q4H PRN ORAL T>100.5 05/23/17 12:15 06/22/17 12:14 05/29/17 21:16 Albuterol/ Ipratropium (Albuterol/ Ipratropium) 3 ml Q4H PRN HHN Shortness of Breath 06/11/17 09:30 06/16/17 23:59 06/12/17 05:08 Albuterol/ Ipratropium (Albuterol/ Ipratropium) 3 ml Q6HRT HHN 06/11/17 13:00 06/16/17 23:59 06/15/17 23:54 Azithromycin (Zithromax) 600 mg DAILY ORAL 06/12/17 14:45 06/19/17 14:44 06/16/17 09:00 Dextrose (Dextrose 50%) STAT PRN IV Hypoglycemia 05/23/17 12:15 06/22/17 12:14 Divalproex Sodium (Depakote ER) 1,000 mg EVERY 12 HOURS ORAL 05/29/17 09:00 06/28/17 08:59 06/16/17 09:58 Docusate Sodium (Colace) 100 mg TWICE A DAY ORAL 06/08/17 18:00 07/08/17 17:59 06/11/17 10:03 Ethambutol HCl (Myambutol) 600 mg DAILY ORAL 06/12/17 14:45 07/12/17 14:44 06/16/17 09:57 Fluoxetine HCl (PROzac) 20 mg DAILY ORAL 05/27/17 09:00 06/26/17 08:59 06/16/17 09:56 Folic Acid (Folate) 1 mg DAILY ORAL 05/27/17 09:00 06/26/17 08:59 06/16/17 09:00 Heparin Sodium (Porcine) (Heparin 5000 units/ml) 5,000 units EVERY 12 HOURS SUBQ 05/23/17 21:00 06/22/17 20:59 06/15/17 09:46 Lactulose (Cephulac) 10 gm THREE TIMES A DAY ORAL 06/08/17 13:00 07/08/17 12:59 06/11/17 10:05 Magnesium Oxide (Mag-Ox 400mg) 500 mg THREE TIMES A DAY ORAL 06/12/17 19:30 07/12/17 19:29 06/16/17 09:00 Multivitamins (Multivitamins) 1 tab DAILY ORAL 05/31/17 09:00 06/30/17 08:59 06/16/17 09:00 Ondansetron HCl (Zofran) 4 mg Q6H PRN IVP Nausea & Vomiting 05/23/17 12:15 06/22/17 12:14 Polyethylene Glycol (Miralax) 17 gm DAILYPRN PRN ORAL Constipation 05/23/17 12:15 06/22/17 12:14 Prednisone (predniSONE) 50 mg DAILY ORAL 06/12/17 09:00 07/12/17 08:59 06/16/17 09:00 Ranitidine HCl (Zantac) 150 mg BEDTIME ORAL 05/26/17 21:00 06/25/17 20:59 06/13/17 20:47 Rifabutin (Mycobutin) 300 mg DAILY ORAL 06/12/17 14:45 07/12/17 14:44 06/16/17 09:55 Thiamine HCl (Vitamin B1) 100 mg DAILY ORAL 05/31/17 09:00 06/30/17 08:59 06/16/17 09:00 Trimethoprim/ Sulfamethoxazole (Bactrim-DS) 1 ea DAILY ORAL 06/16/17 09:00 06/23/17 08:59 06/16/17 09:00 TAMMIE MARY Jun 16, 2017 17:34
--- NOTE | 2017-06-16 17:36 | Pulmonology Progress Note ---
Assessment/Plan Problems: (1) Atypical pneumonia (2) Severe protein-calorie malnutrition (3) Interstitial lung disease (4) Diarrhea Assessment/Plan continue MAC treatment pathology pending dc planning soon Subjective ROS Limited/Unobtainable: No Allergies: Coded Allergies: No Known Allergies (Unverified , 05/23/17) Objective Last 24 Hour Vital Signs Date Time Temp Pulse Resp B/P (MAP) Pulse Ox O2 Delivery O2 Flow Rate FiO2 06/16/17 16:00 98.0 88 18 106/69 98 06/16/17 12:00 98.5 90 20 101/68 06/16/17 08:41 Room Air 06/16/17 08:38 Room Air 21 06/16/17 08:38 Room Air 06/16/17 08:37 97 Room Air 06/16/17 08:00 98.0 83 20 106/73 94 06/16/17 04:00 97.9 85 22 104/71 95 Venturi Mask 8.0 06/16/17 00:00 97 22 99 Venturi Mask 8.0 40 06/15/17 23:50 105 22 98 Venturi Mask 8.0 40 06/15/17 20:00 98.4 99 20 109/75 100 Venturi Mask 8.0 06/15/17 19:15 100 22 99 Venturi Mask 8.0 40 06/15/17 19:15 Venturi Mask 8.0 40 06/15/17 19:05 102 22 98 Venturi Mask 8.0 40 06/15/17 19:04 98 Venturi Mask 8.0 40 Intake and Output 06/15/17 06/16/17 19:00 07:00 Intake Total 400 ml 480 ml Output Total 600 ml Balance -200 ml 480 ml Intake Oral 400 ml 480 ml Output Urine Total 600 ml # Voids 3 3 General Appearance: cachetic HEENT: normocephalic Respiratory/Chest: chest wall non-tender Cardiovascular: normal rate, no JVD Abdomen: normal bowel sounds Genitourinary: normal external genitalia Skin: no rash Neurologic/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: 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-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 Current Medications Medications (Trade) Dose Ordered Sig/Anna Route PRN Reason Start Time Stop Time Status Last Admin Dose Admin Acetaminophen (Tylenol) 650 mg Q4H PRN ORAL T>100.5 05/23/17 12:15 06/22/17 12:14 05/29/17 21:16 Albuterol/ Ipratropium (Albuterol/ Ipratropium) 3 ml Q4H PRN HHN Shortness of Breath 06/11/17 09:30 06/16/17 23:59 06/12/17 05:08 Albuterol/ Ipratropium (Albuterol/ Ipratropium) 3 ml Q6HRT HHN 06/11/17 13:00 06/16/17 23:59 06/15/17 23:54 Azithromycin (Zithromax) 600 mg DAILY ORAL 06/12/17 14:45 06/19/17 14:44 06/16/17 09:00 Dextrose (Dextrose 50%) STAT PRN IV Hypoglycemia 05/23/17 12:15 06/22/17 12:14 Divalproex Sodium (Depakote ER) 1,000 mg EVERY 12 HOURS ORAL 05/29/17 09:00 06/28/17 08:59 06/16/17 09:58 Docusate Sodium (Colace) 100 mg TWICE A DAY ORAL 06/08/17 18:00 07/08/17 17:59 06/11/17 10:03 Ethambutol HCl (Myambutol) 600 mg DAILY ORAL 06/12/17 14:45 07/12/17 14:44 06/16/17 09:57 Fluoxetine HCl (PROzac) 20 mg DAILY ORAL 05/27/17 09:00 06/26/17 08:59 06/16/17 09:56 Folic Acid (Folate) 1 mg DAILY ORAL 05/27/17 09:00 06/26/17 08:59 06/16/17 09:00 Heparin Sodium (Porcine) (Heparin 5000 units/ml) 5,000 units EVERY 12 HOURS SUBQ 05/23/17 21:00 06/22/17 20:59 06/15/17 09:46 Lactulose (Cephulac) 10 gm THREE TIMES A DAY ORAL 06/08/17 13:00 07/08/17 12:59 06/11/17 10:05 Magnesium Oxide (Mag-Ox 400mg) 500 mg THREE TIMES A DAY ORAL 06/12/17 19:30 07/12/17 19:29 06/16/17 09:00 Multivitamins (Multivitamins) 1 tab DAILY ORAL 05/31/17 09:00 06/30/17 08:59 06/16/17 09:00 Ondansetron HCl (Zofran) 4 mg Q6H PRN IVP Nausea & Vomiting 05/23/17 12:15 06/22/17 12:14 Polyethylene Glycol (Miralax) 17 gm DAILYPRN PRN ORAL Constipation 05/23/17 12:15 06/22/17 12:14 Prednisone (predniSONE) 50 mg DAILY ORAL 06/12/17 09:00 07/12/17 08:59 06/16/17 09:00 Ranitidine HCl (Zantac) 150 mg BEDTIME ORAL 05/26/17 21:00 06/25/17 20:59 06/13/17 20:47 Rifabutin (Mycobutin) 300 mg DAILY ORAL 06/12/17 14:45 07/12/17 14:44 06/16/17 09:55 Thiamine HCl (Vitamin B1) 100 mg DAILY ORAL 05/31/17 09:00 06/30/17 08:59 06/16/17 09:00 Trimethoprim/ Sulfamethoxazole (Bactrim-DS) 1 ea DAILY ORAL 06/16/17 09:00 06/23/17 08:59 06/16/17 09:00 TAMMIE MARY Jun 16, 2017 17:36
--- NOTE | 2017-06-16 19:31 | General Progress Note ---
Assessment/Plan Assessment/Plan ASSESSMENT/PLAN HIV with very low CD4 count Leukopenia 2/2 HIV Anemia 2/2 HIV, watch counts, transfuse if hgb below 7 -->Low folate level, continue PO folate Anemia 2/2 folic acid deficiency AFB + for Mycobacterium avium. To be confirmed with bone marrow bx 06/17/17 --> on abx for disseminated MAC MSSA PNA Interstitial lung disease --> may require lung biopsy acute hypoxemic RF severe protein calorie malnutrition diarrhea, better. C. diff negative. GI following alcohol dependence depression Subjective Allergies: Coded Allergies: No Known Allergies (Unverified , 05/23/17) All Systems: reviewed and negative except above Subjective bmbx on thu Objective Last 24 Hour Vital Signs Date Time Temp Pulse Resp B/P (MAP) Pulse Ox O2 Delivery O2 Flow Rate FiO2 06/16/17 16:00 98.0 88 18 106/69 98 06/16/17 12:00 98.5 90 20 101/68 06/16/17 08:41 Room Air 06/16/17 08:38 Room Air 21 06/16/17 08:38 Room Air 06/16/17 08:37 97 Room Air 21 06/16/17 08:00 98.0 83 20 106/73 94 06/16/17 04:00 97.9 85 22 104/71 95 Venturi Mask 8.0 06/16/17 00:00 97 22 99 Venturi Mask 8.0 40 06/15/17 23:50 105 22 98 Venturi Mask 8.0 40 06/15/17 20:00 98.4 99 20 109/75 100 Venturi Mask 8.0 Intake and Output 06/15/17 06/16/17 19:00 07:00 Intake Total 400 ml 480 ml Output Total 600 ml Balance -200 ml 480 ml Intake Oral 400 ml 480 ml Output Urine Total 600 ml # Voids 3 3 Height (Feet): 5 Height (Inches): 10.00 Weight (Pounds): 90 General Appearance: no apparent distress EENT: normal ENT inspection Neck: normal alignment Cardiovascular: normal rate Abdomen: normal bowel sounds Edema: trace edema 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
[2017-06-16 20:00] VITALS: BP 112/80
--- NOTE | 2017-06-16 23:58 | Cardiology Progress Note ---
Assessment/Plan Assessment/Plan 1. Sinus tachycardia, slightly better, due to sepsis, hypovolemia, hypoxemia. 2. Moderate pulmonary HTN. 3. Small pericardial effusion. Subjective Subjective Sinus rhythm at 95. Objective Last 24 Hour Vital Signs Date Time Temp Pulse Resp B/P (MAP) Pulse Ox O2 Delivery O2 Flow Rate FiO2 06/16/17 21:06 Room Air 21 06/16/17 21:06 97 Room Air 21 06/16/17 20:00 97.7 95 20 112/80 100 06/16/17 16:00 98.0 88 18 106/69 98 06/16/17 12:00 98.5 90 20 101/68 06/16/17 08:41 Room Air 06/16/17 08:38 Room Air 06/16/17 08:38 Room Air 06/16/17 08:37 97 Room Air 06/16/17 08:00 98.0 83 20 106/73 94 06/16/17 04:00 97.9 85 22 104/71 95 Venturi Mask 8.0 06/16/17 00:00 97 22 99 Venturi Mask 8.0 40 Intake and Output 06/15/17 06/16/17 19:00 07:00 Intake Total 400 ml 480 ml Output Total 600 ml Balance -200 ml 480 ml Intake Oral 400 ml 480 ml Output Urine Total 600 ml # Voids 3 3 Objective GENERAL: No acute respiratory distress HEENT: Atraumatic, normocephalic, PERRLA, EOMI. NECK: JVP < 5 cm, no carotid bruit. LUNGS: Decreased breath sounds. CARDIOVASCULAR: Regular rate rhythm. Normal S1S2, no murmurs, gallops or rubs. ABDOMEN: Soft, nontender, and nondistended. EXTREMITIES: 1+ B/L edema. VIET SCHROEDER Jun 16, 2017 23:58
[2017-06-17] VITALS: BP 117/84
[2017-06-17 04:00] VITALS: BP 112/88
[2017-06-17 08:00] VITALS: BP 97/68
[2017-06-17] MEDS: Magnesium Oxide 400mg tab ORAL SCH ×3 (08:26→17:33)
[2017-06-17] MEDS: Rifabutin 150mg cap ORAL SCH (08:27)
[2017-06-17] MEDS: Bactrim-DS 1 tab ORAL SCH (08:28)
[2017-06-17] MEDS: Thiamine 100mg tab ORAL SCH (08:28)
[2017-06-17] MEDS: Depakote ER 500mg tab ORAL SCH ×2 (08:28→21:44)
[2017-06-17] MEDS: Azithromycin 600mg Tab ORAL SCH (08:28)
[2017-06-17] MEDS: Docusate 100mg cap ORAL SCH ×2 (08:38→17:33)
[2017-06-17] MEDS: Lactulose 10gm/15ml UDC ORAL SCH ×3 (08:39→17:33)
[2017-06-17] MEDS: Heparin 5000 units/ml inj SUBQ SCH ×2 (08:39→21:47)
--- NOTE | 2017-06-17 11:04 | GI Progress Note ---
Assessment/Plan Problems: (1) Generalized weakness ICD Codes: R53.1 - Weakness SNOMED: 19703385 (2) Anemia ICD Codes: D64.9 - Anemia, unspecified SNOMED: 303676920 (3) Severe protein-calorie malnutrition ICD Codes: E43 - Unspecified severe protein-calorie malnutrition SNOMED: 981464870 (4) Atypical pneumonia ICD Codes: J18.9 - Pneumonia, unspecified organism SNOMED: 171171088 (5) Protein calorie malnutrition ICD Codes: E46 - Unspecified protein-calorie malnutrition SNOMED: 440877436 Qualifiers: Qualified Codes: E44.0 - Moderate protein-calorie malnutrition (6) Diarrhea ICD Codes: R19.7 - Diarrhea, unspecified SNOMED: 14676683 Qualifiers: Qualified Codes: R19.7 - Diarrhea, unspecified Status: unchanged Status Narrative Discussed with Dr. Gamez. Assessment/Plan CT chest reviewed. cdiff negative iron levels unremarkable HIV positive airborne r/o TB KUB r/o chronic pancreatitis >> unremarkable OB stool r/o GI bleed >> negative Tissue Transglutaminase IgA r/o celiac >> negative Failure to thrive anorexia anemia - needs repeat H&H PNA MAC infection Diarrhea vs constipation fu pulmonary, oncology recs cont bowel regime monitor H&H, prn transfusions bowel regime ppi folate PO H2B fu labs Subjective Subjective refusing labs Objective Last 24 Hour Vital Signs Date Time Temp Pulse Resp B/P (MAP) Pulse Ox O2 Delivery O2 Flow Rate FiO2 06/17/17 08:00 97.2 98 20 97/68 97 06/17/17 07:16 Room Air 21 06/17/17 07:16 97 Room Air 06/17/17 04:00 97.0 92 20 112/88 100 06/17/17 00:00 97.5 87 21 117/84 100 06/16/17 21:06 Room Air 06/16/17 21:06 97 Room Air 06/16/17 20:00 97.7 95 20 112/80 100 06/16/17 16:00 98.0 88 18 106/69 98 06/16/17 12:00 98.5 90 20 101/68 Intake and Output 06/16/17 06/17/17 19:00 07:00 Intake Total 1600 ml Output Total 400 ml Balance 1600 ml -400 ml Intake Oral 1600 ml Output Urine Total 400 ml # Voids 5 Height (Feet): 5 Height (Inches): 10.00 Weight (Pounds): 90 General Appearance: WD/WN, no apparent distress, alert, thin Cardiovascular: normal rate Respiratory/Chest: normal breath sounds, no respiratory distress Abdominal Exam: normal bowel sounds, non tender, soft Extremities: normal range of motion, non-tender Alyssa Felix N.P. Jun 17, 2017 11:04
--- NOTE | 2017-06-17 11:39 | Infectious Diseases Prog Note ---
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 Typicall isolated MAC infection is seen in immunocompetent patients. Given he is HIV with probably AIDS with a low CD4 as very low lymphocyte counts (CD4 unable to be calculated) and his clinical presentation of wt loss, intermittent fevers, leukopenia/anemia , pulmonary infiltrates are very suggestive of the diagnosis. Diagnosis is confirmed by either isolation of MAC from blood and/or bone marrow. Also possible concomitant PCP given extensive GGO, and possible hypoxia (patient refusing ABG) Pneumonia. . Sp Cx : MSSA SP Rx - s/p Bronchoscopy 06/10: friable mucosa, mild mucoid secretions; cx normal lebron -BAL cytology: rare atypical cells. Neg GMS and PCP stain CT of Abd /Bilateral pulmonary alveolar infiltrates consistent with pneumonia.- patient not hypoxic, not febrile- lower suspicion PCP; PCP DFA neg AFBx 3 : Neg ( 3rd from 05/26 not in EMR ) now AFB Cx 06/16 05/25 : +MAC; MTB PCR : Neg T Spot : neg Crytpo and blastomycosis: JOHANNA Neg ; RF + histo ab, Cocci ab : neg CT: Extensive interstitial and airspace parenchymal disease, and honeycomb appearance of much of the lower lobe and right middle lobe interstitial component, HIV/AIDS: first test negative repeat, repeat +; VL 973,150; CD4 unable to be calculated due to low absolute lymphocyte count -Hep a immune -Hep b not immune, neg hep C -RPR neg -GC/CL neg Chronic diarrhea resolved, now constipated Stool for ova and parasite ( ? sent ) stool Cx : neg ? pancreatic insufficiency due to chronic alcohol abuse. also possibley due to disseminated MAC Elevated ESR , CRP and RF JOHANNA : neg Leukopenia/anemia Anemia and leukopenia PLAN: -Continue tx for possible disseminated MAC with Azithromycin 600mg qd, Rifabutin 300mg qd and Ethambutol 600mg qd #6 -f/u AFB bcx -for bone marrow biopsy on 06/17 and send tissue for path, AFB and fungal cx -Will start ARV within the next 2 weeks: regimen will be Truvada and Dolutegravir while awaiting HIV genotype -f/u HIV genotype -f/u BAL cx (bacterial,f ungal, AFB, PCP DFA), HLA b 27 -f/u repeat CD4 as lymphocyte count improving -continue Bactrim DS 1 tab qd for PCP ppx - behavioral health case manager consulted to start working on HIV clinic to continue HIV and MAC to be set up prior to discharge; risk of readmission if not follow up with a HIV provider upon discharge. 06/15 Bactrim high dose #4 06/05 SP Ancef d# 10 / 10 05/30 SP Zithromax d# 5 / 5 06/01 SP ( refusing) Flagyl d# 46 05/27 SP vancomycin, cefepime d# 5, Monitor CBC/CMP Fungal and AFB blood Cx Discussed with RN Subjective Allergies: Coded Allergies: No Known Allergies (Unverified , 05/23/17) Subjective afebrile VL 973K for bone marrow bx today tolerating MAC tx Objective Vital Signs Last 24 Hour Vital Signs Date Time Temp Pulse Resp B/P (MAP) Pulse Ox O2 Delivery O2 Flow Rate FiO2 06/17/17 08:00 97.2 98 20 97/68 97 06/17/17 07:16 Room Air 21 06/17/17 07:16 97 Room Air 21 06/17/17 04:00 97.0 92 20 112/88 100 06/17/17 00:00 97.5 87 21 117/84 100 06/16/17 21:06 Room Air 21 06/16/17 21:06 97 Room Air 21 06/16/17 20:00 97.7 95 20 112/80 100 06/16/17 16:00 98.0 88 18 106/69 98 06/16/17 12:00 98.5 90 20 101/68 Height (Feet): 5 Height (Inches): 10.00 Weight (Pounds): 90 Objective General Appearance: no acute distress, cachetic HEENT: normocephalic, atraumatic, mucous membranes moist Respiratory/Chest: chest wall non-tender, rhonchi - scattered but with improved air movement Cardiovascular: normal peripheral pulses, regular rhythm, regularly irregular Abdomen: normal bowel sounds, soft, non tender, no organomegaly, non distended Extremities: no cyanosis, no clubbing, no edema Current Medications Medications (Trade) Dose Ordered Sig/Anna Route PRN Reason Start Time Stop Time Status Last Admin Dose Admin Acetaminophen (Tylenol) 650 mg Q4H PRN ORAL T>100.5 05/23/17 12:15 06/22/17 12:14 05/29/17 21:16 Albuterol/ Ipratropium (Albuterol/ Ipratropium) 3 ml Q4H PRN HHN Shortness of Breath 06/11/17 09:30 06/16/17 23:59 06/12/17 05:08 Albuterol/ Ipratropium (Albuterol/ Ipratropium) 3 ml Q6HRT HHN 06/11/17 13:00 06/16/17 23:59 06/15/17 23:54 Azithromycin (Zithromax) 600 mg DAILY ORAL 06/12/17 14:45 06/19/17 14:44 06/17/17 08:28 Dextrose (Dextrose 50%) STAT PRN IV Hypoglycemia 05/23/17 12:15 06/22/17 12:14 Divalproex Sodium (Depakote ER) 1,000 mg EVERY 12 HOURS ORAL 05/29/17 09:00 06/28/17 08:59 06/17/17 08:28 Docusate Sodium (Colace) 100 mg TWICE A DAY ORAL 06/08/17 18:00 07/08/17 17:59 06/11/17 10:03 Ethambutol HCl (Myambutol) 600 mg DAILY ORAL 06/12/17 14:45 07/12/17 14:44 06/17/17 08:27 Fluoxetine HCl (PROzac) 20 mg DAILY ORAL 05/27/17 09:00 06/26/17 08:59 06/17/17 08:26 Folic Acid (Folate) 1 mg DAILY ORAL 05/27/17 09:00 06/26/17 08:59 06/17/17 08:26 Heparin Sodium (Porcine) (Heparin 5000 units/ml) 5,000 units EVERY 12 HOURS SUBQ 05/23/17 21:00 06/22/17 20:59 06/15/17 09:46 Lactulose (Cephulac) 10 gm THREE TIMES A DAY ORAL 06/08/17 13:00 07/08/17 12:59 06/11/17 10:05 Magnesium Oxide (Mag-Ox 400mg) 500 mg THREE TIMES A DAY ORAL 06/12/17 19:30 07/12/17 19:29 06/17/17 08:26 Multivitamins (Multivitamins) 1 tab DAILY ORAL 05/31/17 09:00 06/30/17 08:59 06/17/17 08:27 Ondansetron HCl (Zofran) 4 mg Q6H PRN IVP Nausea & Vomiting 05/23/17 12:15 06/22/17 12:14 Polyethylene Glycol (Miralax) 17 gm DAILYPRN PRN ORAL Constipation 05/23/17 12:15 06/22/17 12:14 Prednisone (predniSONE) 50 mg DAILY ORAL 06/12/17 09:00 07/12/17 08:59 06/17/17 08:27 Ranitidine HCl (Zantac) 150 mg BEDTIME ORAL 05/26/17 21:00 06/25/17 20:59 06/13/17 20:47 Rifabutin (Mycobutin) 300 mg DAILY ORAL 06/12/17 14:45 07/12/17 14:44 06/17/17 08:27 Thiamine HCl (Vitamin B1) 100 mg DAILY ORAL 05/31/17 09:00 06/30/17 08:59 06/17/17 08:28 Trimethoprim/ Sulfamethoxazole (Bactrim-DS) 1 ea DAILY ORAL 06/16/17 09:00 06/23/17 08:59 06/17/17 08:28 Haydee Tucker M.D. Jun 17, 2017 11:39
[2017-06-17 12:00] VITALS: BP 109/80
--- NOTE | 2017-06-17 14:21 | Diagnostic Imaging Report ---
Indication: Reason For Exam: [id number] Technique: One view of the chest Comparison: 06/12/2017 Findings: Slightly better inspiration on the current exam, with slightly less crowding of the bronchovascular markings. Diffuse bilateral mostly interstitial disease is probably not significant changed allowing for the differences in inspiration peripheral nodularity on the right and peripheral linear opacities on the left are unchanged. Pleural spaces remain clear. Heart size is normal Impression: Bilateral diffuse mostly interstitial disease, largely unchanged over 5 days. Based on recent CT scan to represent a combination of chronic and acute interstitial opacity
[2017-06-17 16:00] VITALS: BP 96/67
--- NOTE | 2017-06-17 16:29 | General Progress Note ---
Assessment/Plan Assessment/Plan ASSESSMENT/PLAN Leukopenia 2/2 HIV --> unfortunately has refused bone marrow biopsy, have explained him the risks and of potentially missing a diagnosis such as lymphoma Anemia 2/2 HIV, watch counts, transfuse if hgb below 7 -->Low folate level, continue PO folate Anemia 2/2 folic acid deficiency HIV with very low CD4 count --> vl is high AFB + for Mycobacterium avium. To be confirmed with bone marrow bx 06/17/17 --> on abx for disseminated MAC MSSA PNA Interstitial lung disease --> may require lung biopsy acute hypoxemic RF severe protein calorie malnutrition diarrhea, better. C. diff negative. GI following alcohol dependence depression Subjective Constitutional: Denies: no symptoms, chills, diaphoresis, fever, malaise, weakness, other HEENT: Denies: no symptoms, eye pain, blurred vision, tearing, double vision, ear pain, ear discharge, nose pain, nose congestion, throat pain, throat swelling, mouth pain, mouth swelling, other Cardiovascular: Denies: no symptoms, chest pain, edema, irregular heart rate, lightheadedness, palpitations, syncope, other Respiratory: Denies: no symptoms, cough, orthopnea, shortness of breath, SOB with excertion, SOB at rest, sputum, stridor, wheezing, other Gastrointestinal/Abdominal: Denies: no symptoms, abdomen distended, abdominal pain, black stools, tarry stools, blood in stool, constipated, diarrhea, difficulty swallowing, nausea, poor appetite, poor fluid intake, rectal bleeding , vomiting, other Genitourinary: Denies: no symptoms, burning, discharge, frequency, flank pain, hematuria, incontinence, pain, urgency, other Neurologic/Psychiatric: Denies: no symptoms, anxiety, depressed, emotional problems, headache, numbness, paresthesia, pre-existing deficit, seizure, tingling, tremors, weakness, other Endocrine: Reports: no symptoms, Denies: excessive sweating, flushing, intolerance to cold, intolerance to heat, increased hunger, increased thirst, increased urine, unexplained weight gain, unexplained weight loss, other Hematologic/Lymphatic: Reports: anemia Allergies: Coded Allergies: No Known Allergies (Unverified , 05/23/17) Subjective bmbx has been refused Objective Last 24 Hour Vital Signs Date Time Temp Pulse Resp B/P (MAP) Pulse Ox O2 Delivery O2 Flow Rate FiO2 06/17/17 16:00 97.7 88 20 96/67 99 06/17/17 12:00 97.7 82 18 109/80 100 06/17/17 08:00 97.2 98 20 97/68 97 06/17/17 07:16 Room Air 21 06/17/17 07:16 97 Room Air 21 06/17/17 04:00 97.0 92 20 112/88 100 06/17/17 00:00 97.5 87 21 117/84 100 06/16/17 21:06 Room Air 21 06/16/17 21:06 97 Room Air 21 06/16/17 20:00 97.7 95 20 112/80 100 Intake and Output 06/16/17 06/17/17 19:00 07:00 Intake Total 1600 ml Output Total 400 ml Balance 1600 ml -400 ml Intake Oral 1600 ml Output Urine Total 400 ml # Voids 5 Height (Feet): 5 Height (Inches): 10.00 Weight (Pounds): 90 General Appearance: no apparent distress EENT: normal ENT inspection Neck: normal alignment Cardiovascular: normal rate Respiratory/Chest: lungs clear Abdomen: non tender Extremities: non-tender Nikhil Woodward Jun 17, 2017 16:28
--- NOTE | 2017-06-17 18:33 | Cardiology Progress Note ---
Assessment/Plan Assessment/Plan 1. Sinus tachycardia, slightly better, due to sepsis, hypovolemia, hypoxemia. 2. Moderate pulmonary HTN. 3. Small pericardial effusion. 4. Normal LV systolic function with LVEF at 50%. 5. Hypotension, hydration, high protein diet, may use midodrine. Subjective Subjective Not on the telemetry floor. Denies any chest pain or SOB. Objective Last 24 Hour Vital Signs Date Time Temp Pulse Resp B/P (MAP) Pulse Ox O2 Delivery O2 Flow Rate FiO2 06/17/17 16:00 97.7 88 20 96/67 99 06/17/17 12:00 97.7 82 18 109/80 100 06/17/17 08:00 97.2 98 20 97/68 97 06/17/17 07:16 Room Air 21 06/17/17 07:16 97 Room Air 21 06/17/17 04:00 97.0 92 20 112/88 100 06/17/17 00:00 97.5 87 21 117/84 100 06/16/17 21:06 Room Air 21 06/16/17 21:06 97 Room Air 21 06/16/17 20:00 97.7 95 20 112/80 100 Intake and Output 06/16/17 06/17/17 19:00 07:00 Intake Total 1600 ml Output Total 400 ml Balance 1600 ml -400 ml Intake Oral 1600 ml Output Urine Total 400 ml # Voids 5 2D Echo: LVEF 50%, Mild AR, Grade II pseudo-normal LV physiology, RVSP 19 mmHg Objective GENERAL: No acute respiratory distress HEENT: Atraumatic, normocephalic, PERRLA, EOMI. NECK: JVP < 5 cm, no carotid bruit. LUNGS: Decreased breath sounds. CARDIOVASCULAR: Regular rate rhythm. Normal S1S2, no murmurs, gallops or rubs. ABDOMEN: Soft, nontender, and nondistended. EXTREMITIES: 1+ B/L edema. VIET SCHROEDER Jun 17, 2017 18:33
--- NOTE | 2017-06-17 19:36 | Pulmonology Progress Note ---
Assessment/Plan Problems: (1) Atypical pneumonia (2) Severe protein-calorie malnutrition (3) Interstitial lung disease (4) Diarrhea Assessment/Plan -Continue tx for possible disseminated MAC with Azithromycin 600mg qd, Rifabutin 300mg qd and Ethambutol 600mg qd BMB is pending pt/ot dc planning Subjective ROS Limited/Unobtainable: No Constitutional: Reports: no symptoms HEENT: Repors: no symptoms Respiratory: Reports: no symptoms Allergies: Coded Allergies: No Known Allergies (Unverified , 05/23/17) Objective Last 24 Hour Vital Signs Date Time Temp Pulse Resp B/P (MAP) Pulse Ox O2 Delivery O2 Flow Rate FiO2 06/17/17 16:00 97.7 88 20 96/67 99 06/17/17 12:00 97.7 82 18 109/80 100 06/17/17 08:00 97.2 98 20 97/68 97 06/17/17 07:16 Room Air 21 06/17/17 07:16 97 Room Air 21 06/17/17 04:00 97.0 92 20 112/88 100 06/17/17 00:00 97.5 87 21 117/84 100 06/16/17 21:06 Room Air 21 06/16/17 21:06 97 Room Air 21 06/16/17 20:00 97.7 95 20 112/80 100 Intake and Output 06/16/17 06/17/17 19:00 07:00 Intake Total 1600 ml Output Total 400 ml Balance 1600 ml -400 ml Intake Oral 1600 ml Output Urine Total 400 ml # Voids 5 General Appearance: cachetic HEENT: normocephalic Respiratory/Chest: chest wall non-tender Cardiovascular: normal peripheral pulses Abdomen: normal bowel sounds Extremities: no cyanosis Skin: no lesions 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 Current Medications Medications (Trade) Dose Ordered Sig/Anna Route PRN Reason Start Time Stop Time Status Last Admin Dose Admin Acetaminophen (Tylenol) 650 mg Q4H PRN ORAL T>100.5 05/23/17 12:15 06/22/17 12:14 05/29/17 21:16 Albuterol/ Ipratropium (Albuterol/ Ipratropium) 3 ml Q4H PRN HHN Shortness of Breath 06/11/17 09:30 06/16/17 23:59 06/12/17 05:08 Albuterol/ Ipratropium (Albuterol/ Ipratropium) 3 ml Q6HRT HHN 06/11/17 13:00 06/16/17 23:59 06/15/17 23:54 Azithromycin (Zithromax) 600 mg DAILY ORAL 06/12/17 14:45 06/19/17 14:44 06/17/17 08:28 Dextrose (Dextrose 50%) STAT PRN IV Hypoglycemia 05/23/17 12:15 06/22/17 12:14 Divalproex Sodium (Depakote ER) 1,000 mg EVERY 12 HOURS ORAL 05/29/17 09:00 06/28/17 08:59 06/17/17 08:28 Docusate Sodium (Colace) 100 mg TWICE A DAY ORAL 06/08/17 18:00 07/08/17 17:59 06/11/17 10:03 Ethambutol HCl (Myambutol) 600 mg DAILY ORAL 06/12/17 14:45 07/12/17 14:44 06/17/17 08:27 Fluoxetine HCl (PROzac) 20 mg DAILY ORAL 05/27/17 09:00 06/26/17 08:59 06/17/17 08:26 Folic Acid (Folate) 1 mg DAILY ORAL 05/27/17 09:00 06/26/17 08:59 06/17/17 08:26 Heparin Sodium (Porcine) (Heparin 5000 units/ml) 5,000 units EVERY 12 HOURS SUBQ 05/23/17 21:00 06/22/17 20:59 06/15/17 09:46 Lactulose (Cephulac) 10 gm THREE TIMES A DAY ORAL 06/08/17 13:00 07/08/17 12:59 06/11/17 10:05 Magnesium Oxide (Mag-Ox 400mg) 500 mg THREE TIMES A DAY ORAL 06/12/17 19:30 07/12/17 19:29 06/17/17 08:26 Multivitamins (Multivitamins) 1 tab DAILY ORAL 05/31/17 09:00 06/30/17 08:59 06/17/17 08:27 Ondansetron HCl (Zofran) 4 mg Q6H PRN IVP Nausea & Vomiting 05/23/17 12:15 06/22/17 12:14 Polyethylene Glycol (Miralax) 17 gm DAILYPRN PRN ORAL Constipation 05/23/17 12:15 06/22/17 12:14 Prednisone (predniSONE) 50 mg DAILY ORAL 06/12/17 09:00 07/12/17 08:59 06/17/17 08:27 Ranitidine HCl (Zantac) 150 mg BEDTIME ORAL 05/26/17 21:00 06/25/17 20:59 06/13/17 20:47 Rifabutin (Mycobutin) 300 mg DAILY ORAL 06/12/17 14:45 07/12/17 14:44 06/17/17 08:27 Thiamine HCl (Vitamin B1) 100 mg DAILY ORAL 05/31/17 09:00 06/30/17 08:59 06/17/17 08:28 Trimethoprim/ Sulfamethoxazole (Bactrim-DS) 1 ea DAILY ORAL 06/16/17 09:00 06/23/17 08:59 06/17/17 08:28 TAMMIE MARY Jun 17, 2017 19:36
[2017-06-17 20:00] VITALS: BP 112/85
[2017-06-18] VITALS: BP 116/79
--- NOTE | 2017-06-18 00:15 | Consultation ---
DATE OF CONSULTATION: 05/23/2017 CARDIOLOGY CONSULTATION CONSULTING PHYSICIAN: Abdi Jimenez M.D. REFERRING PHYSICIAN: Darrian Londono M.D. ADDITIONAL REFERRING PHYSICIAN: Kobe Braun M.D. REASON FOR CONSULTATION: Management of tachycardia. HISTORY OF PRESENT ILLNESS: The patient is a very unfortunate 41-year-old gentleman who presents to the hospital with complaint of diarrhea for about three weeks as well as shortness of breath and cough. The patient apparently had lost about 50 pounds in the past three weeks prior to this admission due to loss of appetite. The patient was admitted to isolation room for ruling out tuberculosis. On arrival to the hospital, blood pressure was 102/69 and heart rate was 86. Temperature was elevated at 101.8 degrees Fahrenheit. Initial vital signs in the emergency department revealed a blood pressure of 109/70, heart rate 106, respirations of 19, temperature of 98.6 degrees Fahrenheit. Cardiology consultation was made at the request of Dr. Londono for evaluation and management of tachycardia. PAST MEDICAL HISTORY: None. PAST SURGICAL HISTORY: None. MEDICATIONS: Medications as outpatient including none, however, the patient is on vancomycin and cefepime. ALLERGIES: No known drug allergies. FAMILY HISTORY: No premature coronary artery disease in first-degree relatives. SOCIAL HISTORY: Lives by himself. Smokes cigarettes and marijuana. Used to drink alcohol heavily just about three months ago. PHYSICAL EXAMINATION: VITAL SIGNS: At the time of arrival to the hospital, blood pressure was 109/70, heart rate of 100, respirations 19, temperature 98.6 degrees Fahrenheit, and O2 saturation 96% on room air. GENERAL: The patient is a very unfortunate gentleman, in no apparent respiratory distress. HEENT: Atraumatic and normocephalic. Anicteric. Pupils are equal, round, and reactive to light and accommodation. Extraocular muscles intact. NECK: JVP less than 5 cm. No carotid bruit. Carotid upstrokes 2+ bilaterally. CARDIOVASCULAR: Normal S1 and S2. Regular rhythm. Tachycardic. No murmurs, gallops, or rubs. PMI is at fourth intercostal space in the midclavicular line. LUNGS: Clear to auscultation bilaterally. ABDOMEN: Soft, nontender, and nondistended. No hepatosplenomegaly. Positive bowel sounds. EXTREMITIES: No evidence of edema, clubbing, or cyanosis. LABORATORY AND DIAGNOSTIC FINDINGS: At the time of arrival to the hospital, WBC is 4.2, hemoglobin 14.2, hematocrit of 44.1, and platelet count is 228. Chemistry showed sodium of 130, potassium 3.5, chloride 94, bicarbonate 32, BUN of 24, creatinine 0.8, glucose is 91. Calcium is 7.6. Troponin I was 0.004. Beta natriuretic peptide was 466. A 12-lead electrocardiogram showed sinus rhythm at a rate of [address] and T-wave abnormalities. Chest x-ray at the time of arrival to the hospital significant for extensive bilateral interstitial atypical infectious etiology should concern. On 06/01/2017, a 2D echocardiography was done, which revealed normal LV systolic function with LVEF of 50%. There was mild aortic regurgitation, grade 2 pseudonormal LV physiology consistent with moderately elevated left atrial pressure and right ventricular systolic pressure measured at 16 mmHg. ASSESSMENT AND PLAN: The patient is a very unfortunate 41-year-old gentleman, seen in Cardiology consultation at request of Dr. Londono. 1. Sinus tachycardia, most likely in this patient due to diarrhea, fluid replacement with Ringer's lactate or normal saline with additional bicarbonate will be determined of choice. 2. No AV catrachita agent is required at this time for correction of sinus tachycardia. 3. A 2D echocardiogram demonstrated normal LV systolic function with left ventricular ejection fraction of approximately 50%. 4. Grade 2 left ventricular pseudonormal pattern is suggestive of moderately elevated left atrial pressure, although the patient clinically does not appear to be in heart failure. Continue with current management. 5. High-protein calorie diet is considered. The patient is on antimicrobial therapy. I would like to thank, Dr. Londono, for the courtesy of this consultation. Abdi Jimenez M.D. DR: Nguyen JOB#: [id number] CC:
[2017-06-18 04:00] VITALS: BP 122/68
[2017-06-18 08:00] VITALS: BP 99/73
[2017-06-18 08:34] LABS: HEMATOCRIT 35.5 % (42.0-52.0); HEMOGLOBIN 11.2 G/DL (14.2-18.0); MEAN CORPUSCULAR VOLUME 91 FL (80-99); PLATELET COUNT 339 K/UL (150-450); RED CELL DISTRIBUTION WIDTH 14.1 % (11.6-14.8); WHITE BLOOD COUNT 6.4 K/UL (4.8-10.8)
[2017-06-18 08:53] LABS: ALANINE AMINOTRANSFERASE 28 U/L (12-78); ALBUMIN 1.6 G/DL (3.4-5.0); ALBUMIN/GLOBULIN RATIO 0.2 (1.0-2.7); ALKALINE PHOSPHATASE 124 U/L (46-116); ANION GAP 4 mmol/L (5-15); ASPARTATE AMINO TRANSFERASE 18 U/L (15-37); BILIRUBIN,TOTAL 0.2 MG/DL (0.2-1.0); BLOOD UREA NITROGEN 21 mg/dL (7-18); CALCIUM 7.7 MG/DL (8.5-10.1); CARBON DIOXIDE 30 MMOL/L (21-32); CHLORIDE 96 MMOL/L (98-107); CREATININE 0.6 MG/DL (0.55-1.30); PHOSPHORUS 3.9 MG/DL (2.5-4.9); POTASSIUM 4.3 MMOL/L (3.5-5.1); SODIUM 130 MMOL/L (136-145)
[2017-06-18] MEDS: Heparin 5000 units/ml inj SUBQ SCH ×2 (09:00→20:57)
[2017-06-18] MEDS: Depakote ER 500mg tab ORAL SCH ×2 (09:00→20:56)
[2017-06-18] MEDS: Docusate 100mg cap ORAL SCH ×2 (09:00→18:00)
[2017-06-18] MEDS: Lactulose 10gm/15ml UDC ORAL SCH ×3 (09:00→18:00)
[2017-06-18] MEDS: Bactrim-DS 1 tab ORAL SCH (09:50)
[2017-06-18] MEDS: Thiamine 100mg tab ORAL SCH (09:50)
[2017-06-18] MEDS: Magnesium Oxide 400mg tab ORAL SCH ×3 (09:50→18:00)
[2017-06-18] MEDS: Rifabutin 150mg cap ORAL SCH (09:53)
[2017-06-18] MEDS: Azithromycin 600mg Tab ORAL SCH (09:55)
--- NOTE | 2017-06-18 10:55 | GI Progress Note ---
Assessment/Plan Problems: (1) Generalized weakness ICD Codes: R53.1 - Weakness SNOMED: 05289606 (2) Anemia ICD Codes: D64.9 - Anemia, unspecified SNOMED: 390308219 (3) Severe protein-calorie malnutrition ICD Codes: E43 - Unspecified severe protein-calorie malnutrition SNOMED: 364265211 (4) Atypical pneumonia ICD Codes: J18.9 - Pneumonia, unspecified organism SNOMED: 610304213 (5) Protein calorie malnutrition ICD Codes: E46 - Unspecified protein-calorie malnutrition SNOMED: 610886396 Qualifiers: Qualified Codes: E44.0 - Moderate protein-calorie malnutrition (6) Diarrhea ICD Codes: R19.7 - Diarrhea, unspecified SNOMED: 62573066 Qualifiers: Qualified Codes: R19.7 - Diarrhea, unspecified Status: unchanged Status Narrative Discussed with Dr. Gamez. Assessment/Plan CT chest reviewed. cdiff negative iron levels unremarkable HIV positive airborne r/o TB KUB r/o chronic pancreatitis >> unremarkable OB stool r/o GI bleed >> negative Tissue Transglutaminase IgA r/o celiac >> negative Failure to thrive anorexia anemia - needs repeat H&H PNA MAC infection Diarrhea vs constipation fu ID, oncology recs cont bowel regime monitor H&H, prn transfusions bowel regime ppi folate PO H2B fu labs Subjective Subjective refusing labs Objective Last 24 Hour Vital Signs Date Time Temp Pulse Resp B/P (MAP) Pulse Ox O2 Delivery O2 Flow Rate FiO2 06/18/17 08:00 97.3 92 20 99/73 98 06/18/17 04:00 97.1 73 20 122/68 98 06/18/17 04:00 98 Room Air 06/18/17 00:34 98.4 06/18/17 00:00 100 Room Air 06/18/17 00:00 98.4 75 16 116/79 100 06/17/17 21:20 Room Air 21 06/17/17 21:20 97 Room Air 21 06/17/17 20:00 98.6 76 18 112/85 100 06/17/17 20:00 100 Room Air 06/17/17 16:00 97.7 88 20 96/67 99 06/17/17 12:00 97.7 82 18 109/80 100 Intake and Output 06/17/17 06/18/17 19:00 07:00 Intake Total 480 ml Output Total 550 ml 200 ml Balance -70 ml -200 ml Intake Oral 480 ml Output Urine Total 550 ml 200 ml Laboratory Tests Test 06/18/17 08:10 White Blood Count 6.4 K/UL (4.8-10.8) Red Blood Count 3.90 M/UL (4.70-6.10) L Hemoglobin 11.2 G/DL (14.2-18.0) L Hematocrit 35.5 % (42.0-52.0) L Mean Corpuscular Volume 91 FL (80-99) Mean Corpuscular Hemoglobin 28.8 PG (27.0-31.0) Mean Corpuscular Hemoglobin Concent 31.6 G/DL (32.0-36.0) L Red Cell Distribution Width 14.1 % (11.6-14.8) Platelet Count 339 K/UL (150-450) Mean Platelet Volume 5.9 FL (6.5-10.1) L Neutrophils (%) (Auto) % (45.0-75.0) Lymphocytes (%) (Auto) % (20.0-45.0) Monocytes (%) (Auto) % (1.0-10.0) Eosinophils (%) (Auto) % (0.0-3.0) Basophils (%) (Auto) % (0.0-2.0) Differential Total Cells Counted 100 Neutrophils % (Manual) 74 % (45-75) Lymphocytes % (Manual) 11 % (20-45) L Monocytes % (Manual) 4 % (1-10) Eosinophils % (Manual) 0 % (0-3) Basophils % (Manual) 0 % (0-2) Band Neutrophils 11 % (0-8) H Platelet Estimate Adequate Platelet Morphology Pending Hypochromasia 1+ Sodium Level 130 MMOL/L (136-145) L Potassium Level 4.3 MMOL/L (3.5-5.1) Chloride Level 96 MMOL/L (98-107) L Carbon Dioxide Level 30 MMOL/L (21-32) Anion Gap 4 mmol/L (5-15) L Blood Urea Nitrogen 21 mg/dL (7-18) H Creatinine 0.6 MG/DL (0.55-1.30) Estimat Glomerular Filtration Rate > 60 mL/min (>60) Glucose Level 70 MG/DL (74-106) L Calcium Level 7.7 MG/DL (8.5-10.1) L Phosphorus Level 3.9 MG/DL (2.5-4.9) Magnesium Level 1.5 MG/DL (1.8-2.4) L Total Bilirubin 0.2 MG/DL (0.2-1.0) Aspartate Amino Transf (AST/SGOT) 18 U/L (15-37) Alanine Aminotransferase (ALT/SGPT) 28 U/L (12-78) Alkaline Phosphatase 124 U/L (46-116) H Total Protein 8.6 G/DL (6.4-8.2) H Albumin 1.6 G/DL (3.4-5.0) L Globulin 7.0 g/dL Albumin/Globulin Ratio 0.2 (1.0-2.7) L Height (Feet): 5 Height (Inches): 10.00 Weight (Pounds): 90 General Appearance: WD/WN, no apparent distress, alert, thin Cardiovascular: normal rate Respiratory/Chest: normal breath sounds, no respiratory distress Abdominal Exam: normal bowel sounds, non tender, soft Extremities: normal range of motion, non-tender Alyssa Felix N.P. Jun 18, 2017 10:55
[2017-06-18 11:56] VITALS: BP 107/77
[2017-06-18 15:54] VITALS: BP 98/64
--- NOTE | 2017-06-18 19:02 | Infectious Diseases Prog Note ---
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 Typicall isolated MAC infection is seen in immunocompetent patients. Given he is HIV with probably AIDS with a low CD4 as very low lymphocyte counts (CD4 unable to be calculated) and his clinical presentation of wt loss, intermittent fevers, leukopenia/anemia , pulmonary infiltrates are very suggestive of the diagnosis. Diagnosis is confirmed by either isolation of MAC from blood and/or bone marrow. Also possible concomitant PCP given extensive GGO, and possible hypoxia (patient refusing ABG) Pneumonia. . Sp Cx : MSSA SP Rx - s/p Bronchoscopy 06/10: friable mucosa, mild mucoid secretions; cx normal [place] -BAL cytology: rare atypical cells. Neg GMS and PCP stain CT of Abd /Bilateral pulmonary alveolar infiltrates consistent with pneumonia.- patient not hypoxic, not febrile- lower suspicion PCP; PCP DFA neg AFBx 3 : Neg ( 3rd from 05/26 not in EMR ) now AFB Cx 06/16 05/25 : +MAC; MTB PCR : Neg T Spot : neg Crytpo and blastomycosis: JOHANNA Neg ; RF + histo ab, Cocci ab : neg CT: Extensive interstitial and airspace parenchymal disease, and honeycomb appearance of much of the lower lobe and right middle lobe interstitial component, HIV/AIDS: first test negative repeat, repeat +; VL 973,150; CD4 unable to be calculated due to low absolute lymphocyte count -Hep a immune -Hep b not immune, neg hep C -RPR neg -GC/CL neg Chronic diarrhea resolved, now constipated Stool for ova and parasite ( ? sent ) stool Cx : neg ? pancreatic insufficiency due to chronic alcohol abuse. also possibley due to disseminated MAC Elevated ESR , CRP and RF JOHANNA : neg Leukopenia/anemia Anemia and leukopenia PLAN: -Continue tx for possible disseminated MAC with Azithromycin 600mg qd, Rifabutin 300mg qd and Ethambutol 600mg qd #7 -f/u AFB bcx -for bone marrow biopsy on 06/17 and send tissue for path, AFB and fungal cx -Will start ARV tomorrow: Truvada and Dolutegravir- will like to monitor patient in house for first 48-72 hrs after initiation of treatment - f/u HIV genotype -f/u BAL cx (fungal, AFB), bone marrow bx path and cx -f/u repeat CD4 as lymphocyte count improving -continue Bactrim DS 1 tab qd for PCP ppx - case management social worker consulted to start working on HIV clinic to continue HIV and MAC to be set up prior to discharge; risk of readmission if not follow up with a HIV provider upon discharge. 06/15 Bactrim high dose #4 06/05 SP Ancef d# 10 / 10 05/30 SP Zithromax d# 5 / 5 06/01 SP ( refusing) Flagyl d# 46 05/27 SP vancomycin, cefepime d# 5, Monitor CBC/CMP f/u Fungal and AFB blood Cx Discussed with RN Subjective Allergies: Coded Allergies: No Known Allergies (Unverified , 05/23/17) Subjective afebrile s/p bone marrow biopsy yesterday leukopenia improving ALP decreasing tolerating MAC tx Objective Vital Signs Last 24 Hour Vital Signs Date Time Temp Pulse Resp B/P (MAP) Pulse Ox O2 Delivery O2 Flow Rate FiO2 06/18/17 16:00 Room Air 06/18/17 15:54 97.9 79 20 98/64 98 06/18/17 12:00 Room Air 06/18/17 11:56 98.2 83 20 107/77 99 06/18/17 09:33 97 Room Air 21 06/18/17 09:33 Room Air 21 06/18/17 08:00 97.3 92 20 99/73 98 06/18/17 08:00 Room Air 06/18/17 04:00 97.1 73 20 122/68 98 06/18/17 04:00 98 Room Air 06/18/17 00:34 98.4 06/18/17 00:00 100 Room Air 06/18/17 00:00 98.4 75 16 116/79 100 06/17/17 21:20 Room Air 21 06/17/17 21:20 97 Room Air 21 06/17/17 20:00 98.6 76 18 112/85 100 06/17/17 20:00 100 Room Air Height (Feet): 5 Height (Inches): 10.00 Weight (Pounds): 90 Objective General Appearance: no acute distress, cachetic HEENT: normocephalic, atraumatic, mucous membranes moist Respiratory/Chest: chest wall non-tender, rhonchi - scattered but with improved air movement Cardiovascular: normal peripheral pulses, regular rhythm, regularly irregular Abdomen: normal bowel sounds, soft, non tender, no organomegaly, non distended Extremities: no cyanosis, no clubbing, no edema Laboratory Tests Test 06/18/17 08:10 White Blood Count 6.4 K/UL (4.8-10.8) Red Blood Count 3.90 M/UL (4.70-6.10) L Hemoglobin 11.2 G/DL (14.2-18.0) L Hematocrit 35.5 % (42.0-52.0) L Mean Corpuscular Volume 91 FL (80-99) Mean Corpuscular Hemoglobin 28.8 PG (27.0-31.0) Mean Corpuscular Hemoglobin Concent 31.6 G/DL (32.0-36.0) L Red Cell Distribution Width 14.1 % (11.6-14.8) Platelet Count 339 K/UL (150-450) Mean Platelet Volume 5.9 FL (6.5-10.1) L Neutrophils (%) (Auto) % (45.0-75.0) Lymphocytes (%) (Auto) % (20.0-45.0) Monocytes (%) (Auto) % (1.0-10.0) Eosinophils (%) (Auto) % (0.0-3.0) Basophils (%) (Auto) % (0.0-2.0) Differential Total Cells Counted 100 Neutrophils % (Manual) 74 % (45-75) Lymphocytes % (Manual) 11 % (20-45) L Monocytes % (Manual) 4 % (1-10) Eosinophils % (Manual) 0 % (0-3) Basophils % (Manual) 0 % (0-2) Band Neutrophils 11 % (0-8) H Platelet Estimate Adequate Platelet Morphology Normal Hypochromasia 1+ Sodium Level 130 MMOL/L (136-145) L Potassium Level 4.3 MMOL/L (3.5-5.1) Chloride Level 96 MMOL/L (98-107) L Carbon Dioxide Level 30 MMOL/L (21-32) Anion Gap 4 mmol/L (5-15) L Blood Urea Nitrogen 21 mg/dL (7-18) H Creatinine 0.6 MG/DL (0.55-1.30) Estimat Glomerular Filtration Rate > 60 mL/min (>60) Glucose Level 70 MG/DL (74-106) L Calcium Level 7.7 MG/DL (8.5-10.1) L Phosphorus Level 3.9 MG/DL (2.5-4.9) Magnesium Level 1.5 MG/DL (1.8-2.4) L Total Bilirubin 0.2 MG/DL (0.2-1.0) Aspartate Amino Transf (AST/SGOT) 18 U/L (15-37) Alanine Aminotransferase (ALT/SGPT) 28 U/L (12-78) Alkaline Phosphatase 124 U/L (46-116) H Total Protein 8.6 G/DL (6.4-8.2) H Albumin 1.6 G/DL (3.4-5.0) L Globulin 7.0 g/dL Albumin/Globulin Ratio 0.2 (1.0-2.7) L Current Medications Medications (Trade) Dose Ordered Sig/Anna Route PRN Reason Start Time Stop Time Status Last Admin Dose Admin Acetaminophen (Tylenol) 650 mg Q4H PRN ORAL T>100.5 05/23/17 12:15 06/22/17 12:14 06/17/17 23:35 Albuterol/ Ipratropium (Albuterol/ Ipratropium) 3 ml Q4H PRN HHN Shortness of Breath 06/11/17 09:30 06/16/17 23:59 06/12/17 05:08 Albuterol/ Ipratropium (Albuterol/ Ipratropium) 3 ml Q6HRT HHN 06/11/17 13:00 06/16/17 23:59 06/15/17 23:54 Azithromycin (Zithromax) 600 mg DAILY ORAL 06/12/17 14:45 06/19/17 14:44 06/18/17 09:55 Dextrose (Dextrose 50%) STAT PRN IV Hypoglycemia 05/23/17 12:15 06/22/17 12:14 Divalproex Sodium (Depakote ER) 1,000 mg EVERY 12 HOURS ORAL 05/29/17 09:00 06/28/17 08:59 06/17/17 21:44 Docusate Sodium (Colace) 100 mg TWICE A DAY ORAL 06/08/17 18:00 07/08/17 17:59 06/11/17 10:03 Ethambutol HCl (Myambutol) 600 mg DAILY ORAL 06/12/17 14:45 07/12/17 14:44 06/18/17 09:49 Fluoxetine HCl (PROzac) 20 mg DAILY ORAL 05/27/17 09:00 06/26/17 08:59 06/18/17 09:48 Folic Acid (Folate) 1 mg DAILY ORAL 05/27/17 09:00 06/26/17 08:59 06/18/17 09:48 Heparin Sodium (Porcine) (Heparin 5000 units/ml) 5,000 units EVERY 12 HOURS SUBQ 05/23/17 21:00 06/22/17 20:59 06/17/17 21:47 Lactulose (Cephulac) 10 gm THREE TIMES A DAY ORAL 06/08/17 13:00 07/08/17 12:59 06/11/17 10:05 Magnesium Oxide (Mag-Ox 400mg) 500 mg THREE TIMES A DAY ORAL 06/12/17 19:30 07/12/17 19:29 06/18/17 15:06 Multivitamins (Multivitamins) 1 tab DAILY ORAL 05/31/17 09:00 06/30/17 08:59 06/18/17 09:49 Ondansetron HCl (Zofran) 4 mg Q6H PRN IVP Nausea & Vomiting 05/23/17 12:15 06/22/17 12:14 Polyethylene Glycol (Miralax) 17 gm DAILYPRN PRN ORAL Constipation 05/23/17 12:15 06/22/17 12:14 Prednisone (predniSONE) 50 mg DAILY ORAL 06/12/17 09:00 07/12/17 08:59 06/18/17 09:47 Ranitidine HCl (Zantac) 150 mg BEDTIME ORAL 05/26/17 21:00 06/25/17 20:59 06/13/17 20:47 Rifabutin (Mycobutin) 300 mg DAILY ORAL 06/12/17 14:45 07/12/17 14:44 06/18/17 09:53 Thiamine HCl (Vitamin B1) 100 mg DAILY ORAL 05/31/17 09:00 06/30/17 08:59 06/18/17 09:50 Trimethoprim/ Sulfamethoxazole (Bactrim-DS) 1 ea DAILY ORAL 06/16/17 09:00 06/23/17 08:59 06/18/17 09:50 Haydee Tucker M.D. Jun 18, 2017 19:02
--- NOTE | 2017-06-18 19:38 | General Progress Note ---
Assessment/Plan Assessment/Plan ASSESSMENT/PLAN # Leukopenia 2/2 HIV --> unfortunately has refused bone marrow biopsy, have explained him the risks and of potentially missing a diagnosis such as lymphoma # Anemia 2/2 HIV, watch counts, transfuse if hgb below 7 -->Low folate level, continue PO folate # Anemia 2/2 folic acid deficiency # HIV with very low CD4 count --> vl is high # AFB + for Mycobacterium avium. To be confirmed with bone marrow bx 06/17/17 --> on abx for disseminated MAC # MSSA PNA # Interstitial lung disease --> may require lung biopsy #acute hypoxemic RF # severe protein calorie malnutrition # diarrhea, better. C. diff negative. GI following # alcohol dependence # depression Subjective Constitutional: Denies: no symptoms, chills, diaphoresis, fever, malaise, weakness, other HEENT: Denies: no symptoms, eye pain, blurred vision, tearing, double vision, ear pain, ear discharge, nose pain, nose congestion, throat pain, throat swelling, mouth pain, mouth swelling, other Cardiovascular: Denies: no symptoms, chest pain, edema, irregular heart rate, lightheadedness, palpitations, syncope, other Respiratory: Denies: no symptoms, cough, orthopnea, shortness of breath, SOB with excertion, SOB at rest, sputum, stridor, wheezing, other Gastrointestinal/Abdominal: Denies: no symptoms, abdomen distended, abdominal pain, black stools, tarry stools, blood in stool, constipated, diarrhea, difficulty swallowing, nausea, poor appetite, poor fluid intake, rectal bleeding , vomiting, other Genitourinary: Denies: no symptoms, burning, discharge, frequency, flank pain, hematuria, incontinence, pain, urgency, other Neurologic/Psychiatric: Denies: no symptoms, anxiety, depressed, emotional problems, headache, numbness, paresthesia, pre-existing deficit, seizure, tingling, tremors, weakness, other Endocrine: Denies: no symptoms, excessive sweating, flushing, intolerance to cold, intolerance to heat, increased hunger, increased thirst, increased urine, unexplained weight gain, unexplained weight loss, other Hematologic/Lymphatic: Denies: no symptoms, anemia, easy bleeding, easy bruising, other Allergies: Coded Allergies: No Known Allergies (Unverified , 05/23/17) Subjective bmbx has been refused, potentially may try [email or web address] Objective Last 24 Hour Vital Signs Date Time Temp Pulse Resp B/P (MAP) Pulse Ox O2 Delivery O2 Flow Rate FiO2 06/18/17 16:00 Room Air 06/18/17 15:54 97.9 79 20 98/64 98 06/18/17 12:00 Room Air 06/18/17 11:56 98.2 83 20 107/77 99 06/18/17 09:33 97 Room Air 21 06/18/17 09:33 Room Air 21 06/18/17 08:00 97.3 92 20 99/73 98 06/18/17 08:00 Room Air 06/18/17 04:00 97.1 73 20 122/68 98 06/18/17 04:00 98 Room Air 06/18/17 00:34 98.4 06/18/17 00:00 100 Room Air 06/18/17 00:00 98.4 75 16 116/79 100 06/17/17 21:20 Room Air 21 06/17/17 21:20 97 Room Air 21 06/17/17 20:00 98.6 76 18 112/85 100 06/17/17 20:00 100 Room Air Intake and Output 06/17/17 06/18/17 19:00 07:00 Intake Total 480 ml Output Total 550 ml 200 ml Balance -70 ml -200 ml Intake Oral 480 ml Output Urine Total 550 ml 200 ml Laboratory Tests 06/18/17 08:10: White Blood Count 6.4, Red Blood Count 3.90L, Hemoglobin 11.2L, Hematocrit 35.5L , Mean Corpuscular Volume 91, Mean Corpuscular Hemoglobin 28.8, Mean Corpuscular Hemoglobin Concent 31.6L, Red Cell Distribution Width 14.1, Platelet Count 339, Mean Platelet Volume 5.9L, Neutrophils (%) (Auto) , Lymphocytes (%) (Auto) , Monocytes (%) (Auto) , Eosinophils (%) (Auto) , Basophils (%) (Auto) , Differential Total Cells Counted 100, Neutrophils % ( Manual) 74, Lymphocytes % (Manual) 11L, Monocytes % (Manual) 4, Eosinophils % ( Manual) 0, Basophils % (Manual) 0, Band Neutrophils 11H, Platelet Estimate Adequate, Platelet Morphology Normal, Hypochromasia 1+, Sodium Level 130L, Potassium Level 4.3, Chloride Level 96L, Carbon Dioxide Level 30, Anion Gap 4L, Blood Urea Nitrogen 21H, Creatinine 0.6, Estimat Glomerular Filtration Rate > 60 , Glucose Level 70L, Calcium Level 7.7L, Phosphorus Level 3.9, Magnesium Level 1.5L, Total Bilirubin 0.2, Aspartate Amino Transf (AST/SGOT) 18, Alanine Aminotransferase (ALT/SGPT) 28, Alkaline Phosphatase 124H, Total Protein 8.6H, Albumin 1.6L, Globulin 7.0, Albumin/Globulin Ratio 0.2L Height (Feet): 5 Height (Inches): 10.00 Weight (Pounds): 90 General Appearance: alert EENT: TMs normal Neck: supple Cardiovascular: regular rhythm Respiratory/Chest: lungs clear Abdomen: no organomegaly Extremities: non-tender Edema: 1+ Leg (L), 1+ Leg (R) Edema: mild edema Neurologic: alert Skin: warm/dry Nikhil Woodward Jun 18, 2017 19:38
[2017-06-18 20:00] VITALS: BP 104/77
--- NOTE | 2017-06-18 22:19 | Pulmonology Progress Note ---
Assessment/Plan Problems: (1) Atypical pneumonia (2) Severe protein-calorie malnutrition (3) Interstitial lung disease (4) Diarrhea Assessment/Plan continue MAC treatment pathology pending dc planning soon pt/ot evaluation again will need snif placement Subjective ROS Limited/Unobtainable: No Constitutional: Reports: no symptoms HEENT: Repors: no symptoms Allergies: Coded Allergies: No Known Allergies (Unverified , 05/23/17) Objective Last 24 Hour Vital Signs Date Time Temp Pulse Resp B/P (MAP) Pulse Ox O2 Delivery O2 Flow Rate FiO2 06/18/17 20:00 98.1 82 18 104/77 99 06/18/17 20:00 99 Venturi Mask 8.0 06/18/17 16:00 Room Air 06/18/17 15:54 97.9 79 20 98/64 98 06/18/17 12:00 Room Air 06/18/17 11:56 98.2 83 20 107/77 99 06/18/17 09:33 97 Room Air 21 06/18/17 09:33 Room Air 21 06/18/17 08:00 97.3 92 20 99/73 98 06/18/17 08:00 Room Air 06/18/17 04:00 97.1 73 20 122/68 98 06/18/17 04:00 98 Room Air 06/18/17 00:34 98.4 06/18/17 00:00 100 Room Air 06/18/17 00:00 98.4 75 16 116/79 100 Intake and Output 06/17/17 06/18/17 19:00 07:00 Intake Total 480 ml Output Total 550 ml 200 ml Balance -70 ml -200 ml Intake Oral 480 ml Output Urine Total 550 ml 200 ml General Appearance: WD/WN HEENT: normocephalic, atraumatic Respiratory/Chest: chest wall non-tender, lungs clear Cardiovascular: normal peripheral pulses, normal rate Abdomen: normal bowel sounds, soft, non tender Extremities: no cyanosis Skin: no rash 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 Lymphatic: no neck adenopathy Laboratory Tests 06/18/17 08:10: White Blood Count 6.4, Red Blood Count 3.90L, Hemoglobin 11.2L, Hematocrit 35.5L , Mean Corpuscular Volume 91, Mean Corpuscular Hemoglobin 28.8, Mean Corpuscular Hemoglobin Concent 31.6L, Red Cell Distribution Width 14.1, Platelet Count 339, Mean Platelet Volume 5.9L, Neutrophils (%) (Auto) , Lymphocytes (%) (Auto) , Monocytes (%) (Auto) , Eosinophils (%) (Auto) , Basophils (%) (Auto) , Differential Total Cells Counted 100, Neutrophils % ( Manual) 74, Lymphocytes % (Manual) 11L, Monocytes % (Manual) 4, Eosinophils % ( Manual) 0, Basophils % (Manual) 0, Band Neutrophils 11H, Platelet Estimate Adequate, Platelet Morphology Normal, Hypochromasia 1+, Sodium Level 130L, Potassium Level 4.3, Chloride Level 96L, Carbon Dioxide Level 30, Anion Gap 4L, Blood Urea Nitrogen 21H, Creatinine 0.6, Estimat Glomerular Filtration Rate > 60 , Glucose Level 70L, Calcium Level 7.7L, Phosphorus Level 3.9, Magnesium Level 1.5L, Total Bilirubin 0.2, Aspartate Amino Transf (AST/SGOT) 18, Alanine Aminotransferase (ALT/SGPT) 28, Alkaline Phosphatase 124H, Total Protein 8.6H, Albumin 1.6L, Globulin 7.0, Albumin/Globulin Ratio 0.2L Current Medications Medications (Trade) Dose Ordered Sig/Anna Route PRN Reason Start Time Stop Time Status Last Admin Dose Admin Acetaminophen (Tylenol) 650 mg Q4H PRN ORAL T>100.5 05/23/17 12:15 06/22/17 12:14 06/17/17 23:35 Albuterol/ Ipratropium (Albuterol/ Ipratropium) 3 ml Q4H PRN HHN Shortness of Breath 06/11/17 09:30 06/16/17 23:59 06/12/17 05:08 Albuterol/ Ipratropium (Albuterol/ Ipratropium) 3 ml Q6HRT HHN 06/11/17 13:00 06/16/17 23:59 06/15/17 23:54 Azithromycin (Zithromax) 600 mg DAILY ORAL 06/12/17 14:45 06/19/17 14:44 06/18/17 09:55 Dextrose (Dextrose 50%) STAT PRN IV Hypoglycemia 05/23/17 12:15 06/22/17 12:14 Divalproex Sodium (Depakote ER) 1,000 mg EVERY 12 HOURS ORAL 05/29/17 09:00 06/28/17 08:59 06/17/17 21:44 Docusate Sodium (Colace) 100 mg TWICE A DAY ORAL 06/08/17 18:00 07/08/17 17:59 06/11/17 10:03 Dolutegravir Sodium (Tivicay) 50 mg DAILY ORAL 06/19/17 09:00 07/19/17 08:59 Emtricitabine/ Tenofovir (Truvada 200/ 300mg) 1 tab DAILY ORAL 06/19/17 09:00 07/19/17 08:59 Ethambutol HCl (Myambutol) 600 mg DAILY ORAL 06/12/17 14:45 07/12/17 14:44 06/18/17 09:49 Fluoxetine HCl (PROzac) 20 mg DAILY ORAL 05/27/17 09:00 06/26/17 08:59 06/18/17 09:48 Folic Acid (Folate) 1 mg DAILY ORAL 05/27/17 09:00 06/26/17 08:59 06/18/17 09:48 Heparin Sodium (Porcine) (Heparin 5000 units/ml) 5,000 units EVERY 12 HOURS SUBQ 05/23/17 21:00 06/22/17 20:59 06/18/17 20:57 Hepatitis B Vaccine (Engerix-B) 20 mcg ONCE ONCE IM 06/19/17 10:00 06/19/17 10:01 UNV Lactulose (Cephulac) 10 gm THREE TIMES A DAY ORAL 06/08/17 13:00 07/08/17 12:59 06/11/17 10:05 Magnesium Oxide (Mag-Ox 400mg) 500 mg THREE TIMES A DAY ORAL 06/12/17 19:30 07/12/17 19:29 06/18/17 15:06 Multivitamins (Multivitamins) 1 tab DAILY ORAL 05/31/17 09:00 06/30/17 08:59 06/18/17 09:49 Ondansetron HCl (Zofran) 4 mg Q6H PRN IVP Nausea & Vomiting 05/23/17 12:15 06/22/17 12:14 Pneumococcal Polyvalent Vaccine (Pneumovax) 0.5 ml ONCE ONCE IM 06/20/17 09:00 06/20/17 09:01 UNV Polyethylene Glycol (Miralax) 17 gm DAILYPRN PRN ORAL Constipation 05/23/17 12:15 06/22/17 12:14 Prednisone (predniSONE) 50 mg DAILY ORAL 06/12/17 09:00 07/12/17 08:59 06/18/17 09:47 Ranitidine HCl (Zantac) 150 mg BEDTIME ORAL 05/26/17 21:00 06/25/17 20:59 06/13/17 20:47 Rifabutin (Mycobutin) 300 mg DAILY ORAL 06/12/17 14:45 07/12/17 14:44 06/18/17 09:53 Thiamine HCl (Vitamin B1) 100 mg DAILY ORAL 05/31/17 09:00 06/30/17 08:59 06/18/17 09:50 Trimethoprim/ Sulfamethoxazole (Bactrim-DS) 1 ea DAILY ORAL 06/16/17 09:00 06/23/17 08:59 06/18/17 09:50 TAMMIE MARY Jun 18, 2017 22:19
--- NOTE | 2017-06-18 23:59 | Cardiology Progress Note ---
Assessment/Plan Assessment/Plan 1. Sinus tachycardia, resolved, due to sepsis, hypovolemia, hypoxemia. 2. Moderate pulmonary HTN. 3. Small pericardial effusion. 4. Normal LV systolic function with LVEF at 50%. 5. Hypotension, hydration, high protein diet, may use midodrine. Subjective Subjective Denies any chest pain or SOB. Objective Last 24 Hour Vital Signs Date Time Temp Pulse Resp B/P (MAP) Pulse Ox O2 Delivery O2 Flow Rate FiO2 06/18/17 20:00 98.1 82 18 104/77 99 06/18/17 20:00 99 Venturi Mask 8.0 06/18/17 16:00 Room Air 06/18/17 15:54 97.9 79 20 98/64 98 06/18/17 12:00 Room Air 06/18/17 11:56 98.2 83 20 107/77 99 06/18/17 09:33 97 Room Air 21 06/18/17 09:33 Room Air 21 06/18/17 08:00 97.3 92 20 99/73 98 06/18/17 08:00 Room Air 06/18/17 04:00 97.1 73 20 122/68 98 06/18/17 04:00 98 Room Air 06/18/17 00:34 98.4 06/18/17 00:00 100 Room Air 06/18/17 00:00 98.4 75 16 116/79 100 Intake and Output 06/17/17 06/18/17 19:00 07:00 Intake Total 480 ml Output Total 550 ml 200 ml Balance -70 ml -200 ml Intake Oral 480 ml Output Urine Total 550 ml 200 ml 2D Echo: LVEF 50%, Mild AR, Grade II pseudo-normal LV physiology, RVSP 19 mmHg Laboratory Tests Test 06/18/17 08:10 White Blood Count 6.4 K/UL (4.8-10.8) Red Blood Count 3.90 M/UL (4.70-6.10) L Hemoglobin 11.2 G/DL (14.2-18.0) L Hematocrit 35.5 % (42.0-52.0) L Mean Corpuscular Volume 91 FL (80-99) Mean Corpuscular Hemoglobin 28.8 PG (27.0-31.0) Mean Corpuscular Hemoglobin Concent 31.6 G/DL (32.0-36.0) L Red Cell Distribution Width 14.1 % (11.6-14.8) Platelet Count 339 K/UL (150-450) Mean Platelet Volume 5.9 FL (6.5-10.1) L Neutrophils (%) (Auto) % (45.0-75.0) Lymphocytes (%) (Auto) % (20.0-45.0) Monocytes (%) (Auto) % (1.0-10.0) Eosinophils (%) (Auto) % (0.0-3.0) Basophils (%) (Auto) % (0.0-2.0) Differential Total Cells Counted 100 Neutrophils % (Manual) 74 % (45-75) Lymphocytes % (Manual) 11 % (20-45) L Monocytes % (Manual) 4 % (1-10) Eosinophils % (Manual) 0 % (0-3) Basophils % (Manual) 0 % (0-2) Band Neutrophils 11 % (0-8) H Platelet Estimate Adequate Platelet Morphology Normal Hypochromasia 1+ Sodium Level 130 MMOL/L (136-145) L Potassium Level 4.3 MMOL/L (3.5-5.1) Chloride Level 96 MMOL/L (98-107) L Carbon Dioxide Level 30 MMOL/L (21-32) Anion Gap 4 mmol/L (5-15) L Blood Urea Nitrogen 21 mg/dL (7-18) H Creatinine 0.6 MG/DL (0.55-1.30) Estimat Glomerular Filtration Rate > 60 mL/min (>60) Glucose Level 70 MG/DL (74-106) L Calcium Level 7.7 MG/DL (8.5-10.1) L Phosphorus Level 3.9 MG/DL (2.5-4.9) Magnesium Level 1.5 MG/DL (1.8-2.4) L Total Bilirubin 0.2 MG/DL (0.2-1.0) Aspartate Amino Transf (AST/SGOT) 18 U/L (15-37) Alanine Aminotransferase (ALT/SGPT) 28 U/L (12-78) Alkaline Phosphatase 124 U/L (46-116) H Total Protein 8.6 G/DL (6.4-8.2) H Albumin 1.6 G/DL (3.4-5.0) L Globulin 7.0 g/dL Albumin/Globulin Ratio 0.2 (1.0-2.7) L Objective GENERAL: No acute respiratory distress HEENT: Atraumatic, normocephalic, PERRLA, EOMI. NECK: JVP < 5 cm, no carotid bruit. LUNGS: Decreased breath sounds. CARDIOVASCULAR: Regular rate rhythm. Normal S1S2, no murmurs, gallops or rubs. ABDOMEN: Soft, nontender, and nondistended. EXTREMITIES: 1+ B/L edema. VIET SCHROEDER Jun 18, 2017 23:59
[2017-06-19 03:30] VITALS: BP 102/65
[2017-06-19 08:30] VITALS: BP 117/81
[2017-06-19] MEDS: Heparin 5000 units/ml inj SUBQ SCH ×2 (09:00→20:57)
[2017-06-19] MEDS: Magnesium Oxide 400mg tab ORAL SCH ×3 (09:00→18:54)
[2017-06-19] MEDS: Thiamine 100mg tab ORAL SCH (09:00)
[2017-06-19] MEDS: Lactulose 10gm/15ml UDC ORAL SCH ×3 (09:00→18:00)
[2017-06-19] MEDS: Docusate 100mg cap ORAL SCH ×2 (09:00→18:00)
[2017-06-19] MEDS: Depakote ER 500mg tab ORAL SCH ×2 (09:00→20:57)
--- NOTE | 2017-06-19 09:21 | Pulmonology Progress Note ---
Assessment/Plan Assessment/Plan ASSESSMENT disseminated MAC infection MSSA PNA, s/p Rx Interstitial lung disease acute hypoxemic RF requiring VM -resolved s/p bronchoscopy 06/10 HIV disease, likely AIDS severe protein calorie malnutrition diarrhea -resolved alcohol dependence depression hypo Mg PLAN OF CARE MS floor off respiratory isolation supplemental O2 titrate O2 to keep sat above 92%, stable on RA now pulmonary toilet on Rx for disseminated MAC infection as per ID management started today on ART as per ID bone marrow biopsy -no fungal organisms sputum AFB x 3 ( 2 smear negative, but one cx + AFB) PPD negative , MTB PCR negative CT chest noted c/w ILD sputum + Staph aureus , repeated sputum cx negative, s/p Rx for PNA / AFB + MAC PCP negative first rapid HIV test negative , repeated rapid HIV test preliminary positive CD4 count was unable to be calculated due to low absolute lymphocyte count , probably should be repeated when lymph better, likely AIDS on steroids with slow tapering and clinically with improvement, s/p Bronchoscopy with bronchoalveolar lavage, s/p BAL BLL, cx negative, biopsy - no fungal cells with findings of :Bilateral lung infiltrates, Friable mucosa but no active bleeding, Mild mucoid secretions, Normal endobronchial anatomy to subsegmental bronchi Mg replaced prior heme following , venous Duplex BLE negative psych follows, optimized psych med regimen Diarrhea resolved GI following for the patient's chronic diarrhea. 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 DVT, GI prophylaxis awaiting for clearance from Department of Health case discussed and evaluated by supervising physician Subjective Allergies: Coded Allergies: No Known Allergies (Unverified , 05/23/17) Subjective afebrile, no leukocytosis diarrhea resolved on RA pulse ox stable no signs of respiratory distress Objective Last 24 Hour Vital Signs Date Time Temp Pulse Resp B/P (MAP) Pulse Ox O2 Delivery O2 Flow Rate FiO2 06/19/17 04:00 100 Room Air 06/19/17 03:30 97.3 71 20 102/65 100 Room Air 06/18/17 20:00 98.1 82 18 104/77 99 06/18/17 20:00 99 Venturi Mask 8.0 06/18/17 16:00 Room Air 06/18/17 15:54 97.9 79 20 98/64 98 06/18/17 12:00 Room Air 06/18/17 11:56 98.2 83 20 107/77 99 06/18/17 09:33 97 Room Air 21 06/18/17 09:33 Room Air 21 Intake and Output 06/18/17 06/19/17 19:00 07:00 Intake Total 560 ml Output Total 450 ml Balance 110 ml Intake Oral 560 ml Output Urine Total 450 ml # Voids 2 # Bowel Movements 1 3 Objective General Appearance: no acute distress, cachetic, A/A/O x 3 male HEENT: normocephalic, atraumatic, anicteric, mucous membranes moist, Respiratory/Chest: clear with moderate air exchange , no respiratory distress, no accessory muscle use Cardiovascular: normal rate Abdomen: normal bowel sounds, soft, non tender Extremities: no edema, pedal pulses normal Neurologic/Psychiatric: alert, oriented x 3, responsive Musculoskeletal: normal muscle bulk Current Medications Medications (Trade) Dose Ordered Sig/Anna Route PRN Reason Start Time Stop Time Status Last Admin Dose Admin Acetaminophen (Tylenol) 650 mg Q4H PRN ORAL T>100.5 05/23/17 12:15 06/22/17 12:14 06/17/17 23:35 Albuterol/ Ipratropium (Albuterol/ Ipratropium) 3 ml Q4H PRN HHN Shortness of Breath 06/11/17 09:30 06/16/17 23:59 06/12/17 05:08 Albuterol/ Ipratropium (Albuterol/ Ipratropium) 3 ml Q6HRT HHN 06/11/17 13:00 06/16/17 23:59 06/15/17 23:54 Azithromycin (Zithromax) 600 mg DAILY ORAL 06/12/17 14:45 06/19/17 14:44 06/18/17 09:55 Dextrose (Dextrose 50%) STAT PRN IV Hypoglycemia 05/23/17 12:15 06/22/17 12:14 Divalproex Sodium (Depakote ER) 1,000 mg EVERY 12 HOURS ORAL 05/29/17 09:00 06/28/17 08:59 06/17/17 21:44 Docusate Sodium (Colace) 100 mg TWICE A DAY ORAL 06/08/17 18:00 07/08/17 17:59 06/11/17 10:03 Dolutegravir Sodium (Tivicay) 50 mg DAILY ORAL 06/19/17 09:00 07/19/17 08:59 Emtricitabine/ Tenofovir (Truvada 200/ 300mg) 1 tab DAILY ORAL 06/19/17 09:00 07/19/17 08:59 Ethambutol HCl (Myambutol) 600 mg DAILY ORAL 06/12/17 14:45 07/12/17 14:44 06/18/17 09:49 Fluoxetine HCl (PROzac) 20 mg DAILY ORAL 05/27/17 09:00 06/26/17 08:59 06/18/17 09:48 Folic Acid (Folate) 1 mg DAILY ORAL 05/27/17 09:00 06/26/17 08:59 06/18/17 09:48 Heparin Sodium (Porcine) (Heparin 5000 units/ml) 5,000 units EVERY 12 HOURS SUBQ 05/23/17 21:00 06/22/17 20:59 06/18/17 20:57 Hepatitis B Vaccine (Engerix-B) 20 mcg ONCE ONCE IM 06/19/17 10:00 06/19/17 10:01 UNV Lactulose (Cephulac) 10 gm THREE TIMES A DAY ORAL 06/08/17 13:00 07/08/17 12:59 06/11/17 10:05 Magnesium Oxide (Mag-Ox 400mg) 500 mg THREE TIMES A DAY ORAL 06/12/17 19:30 07/12/17 19:29 06/18/17 15:06 Multivitamins (Multivitamins) 1 tab DAILY ORAL 05/31/17 09:00 06/30/17 08:59 06/18/17 09:49 Ondansetron HCl (Zofran) 4 mg Q6H PRN IVP Nausea & Vomiting 05/23/17 12:15 06/22/17 12:14 Pneumococcal Polyvalent Vaccine (Pneumovax) 0.5 ml ONCE ONCE IM 06/20/17 09:00 06/20/17 09:01 UNV Polyethylene Glycol (Miralax) 17 gm DAILYPRN PRN ORAL Constipation 05/23/17 12:15 06/22/17 12:14 Prednisone (predniSONE) 50 mg DAILY ORAL 06/12/17 09:00 07/12/17 08:59 06/18/17 09:47 Ranitidine HCl (Zantac) 150 mg BEDTIME ORAL 05/26/17 21:00 06/25/17 20:59 06/13/17 20:47 Rifabutin (Mycobutin) 300 mg DAILY ORAL 06/12/17 14:45 07/12/17 14:44 06/18/17 09:53 Thiamine HCl (Vitamin B1) 100 mg DAILY ORAL 05/31/17 09:00 06/30/17 08:59 06/18/17 09:50 Trimethoprim/ Sulfamethoxazole (Bactrim-DS) 1 ea DAILY ORAL 06/16/17 09:00 06/23/17 08:59 06/18/17 09:50 Bob ([facility])Analy NP Jun 19, 2017 09:21
[2017-06-19] MEDS ORDERED: Albuterol/Ipratropium 3ml neb HHN PRN (09:30)
[2017-06-19] MEDS ORDERED: HEPATITIS B VACCINE 20 MCG/ML IM ONE (10:00)
[2017-06-19] MEDS: Azithromycin 600mg Tab ORAL SCH (10:13)
[2017-06-19] MEDS: Rifabutin 150mg cap ORAL SCH (10:13)
[2017-06-19] MEDS: Bactrim-DS 1 tab ORAL SCH (10:13)
[2017-06-19 11:50] VITALS: BP 119/81
[2017-06-19] MEDS: Dolutegravir Sodium 50mg tab ORAL SCH (11:57)
--- NOTE | 2017-06-19 12:32 | Infectious Diseases Prog Note ---
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 Typicall isolated MAC infection is seen in immunocompetent patients. Given he is HIV with probably AIDS with a low CD4 as very low lymphocyte counts (CD4 unable to be calculated) and his clinical presentation of wt loss, intermittent fevers, leukopenia/anemia , pulmonary infiltrates are very suggestive of the diagnosis. Diagnosis is confirmed by either isolation of MAC from blood and/or bone marrow. Also possible concomitant PCP given extensive GGO, and possible hypoxia -s/p bone marrow biopsy 06/18 -path pending- prelim flow cytometry neg -cx p Pneumonia. . Sp Cx : MSSA SP Rx - s/p Bronchoscopy 06/10: friable mucosa, mild mucoid secretions; cx normal [place] -BAL cytology: rare atypical cells. Neg GMS and PCP stain CT of Abd /Bilateral pulmonary alveolar infiltrates consistent with pneumonia.- patient not hypoxic, not febrile- lower suspicion PCP; PCP DFA neg AFBx 3 : Neg ( 3rd from 05/26 not in EMR ) now AFB Cx 06/16 05/25 : +MAC; MTB PCR : Neg T Spot : neg Crytpo and blastomycosis: JOHANNA Neg ; RF + histo ab, Cocci ab : neg CT: Extensive interstitial and airspace parenchymal disease, and honeycomb appearance of much of the lower lobe and right middle lobe interstitial component, HIV/AIDS: first test negative repeat, repeat +; VL 973,150; CD4 unable to be calculated due to low absolute lymphocyte count -repeat CD4 p -Hep a immune -Hep b not immune, neg hep C -RPR neg -GC/CL neg Chronic diarrhea resolved, now constipated Stool for ova and parasite ( ? sent ) stool Cx : neg ? pancreatic insufficiency due to chronic alcohol abuse. also possibley due to disseminated MAC Elevated ESR , CRP and RF JOHANNA : neg Leukopenia/anemia Anemia and leukopenia PLAN: -Continue tx for possible disseminated MAC with Azithromycin 600mg qd, Rifabutin 300mg qd and Ethambutol 600mg qd #8 -f/u AFB bcx -for bone marrow biopsy on 06/17 and send tissue for path, AFB and fungal cx -Will start ARV today: Truvada and Dolutegravir- will like to monitor patient in house for first 48-72 hrs after initiation of treatment - f/u HIV genotype -f/u BAL cx (fungal, AFB), bone marrow bx path and cx -f/u repeat CD4 as lymphocyte count improving -continue Bactrim DS 1 tab qd for PCP ppx - case management rn consulted to start working on HIV clinic to continue HIV and MAC to be set up prior to discharge; risk of readmission if not follow up with a HIV provider upon discharge. 06/15 Bactrim high dose #4 06/05 SP Ancef d# 05/30 SP Zithromax d# 5 / 06/01 SP ( refusing) Flagyl d# 46 05/27 SP vancomycin, cefepime d# 5, Monitor CBC/CMP f/u Fungal and AFB blood Cx Discussed with RN Subjective Allergies: Coded Allergies: No Known Allergies (Unverified , 05/23/17) Subjective afebrile Objective Vital Signs Last 24 Hour Vital Signs Date Time Temp Pulse Resp B/P (MAP) Pulse Ox O2 Delivery O2 Flow Rate FiO2 06/19/17 11:50 97.5 79 20 119/81 100 06/19/17 08:30 97.7 75 20 117/81 100 06/19/17 04:00 100 Room Air 06/19/17 03:30 97.3 71 20 102/65 100 Room Air 06/18/17 20:00 98.1 82 18 104/77 99 06/18/17 20:00 99 Venturi Mask 8.0 06/18/17 16:00 Room Air 06/18/17 15:54 97.9 79 20 98/64 98 Height (Feet): 5 Height (Inches): 10.00 Weight (Pounds): 90 Objective General Appearance: no acute distress, cachetic HEENT: normocephalic, atraumatic, mucous membranes moist Respiratory/Chest: CTA x2 Cardiovascular: normal peripheral pulses, regular rhythm, regularly irregular Abdomen: normal bowel sounds, soft, non tender, no organomegaly, non distended Extremities: no cyanosis, no clubbing, no edema Microbiology Date/Time Source Procedure Growth Status 06/18/17 11:30 Bone Marrow Gram Stain Pending Resulted 06/18/17 11:30 Bone Marrow Aerobic Culture - Preliminary Resulted 06/18/17 11:30 Bone Marrow Anaerobic Culture Pending Resulted Current Medications Medications (Trade) Dose Ordered Sig/Anna Route PRN Reason Start Time Stop Time Status Last Admin Dose Admin Acetaminophen (Tylenol) 650 mg Q4H PRN ORAL T>100.5 05/23/17 12:15 06/22/17 12:14 06/17/17 23:35 Albuterol/ Ipratropium (Albuterol/ Ipratropium) 3 ml Q4H PRN HHN Shortness of Breath 06/19/17 09:30 06/24/17 09:29 Albuterol/ Ipratropium (Albuterol/ Ipratropium) 3 ml Q6HRT HHN 06/11/17 13:00 06/16/17 23:59 06/15/17 23:54 Azithromycin (Zithromax) 600 mg DAILY ORAL 06/12/17 14:45 06/19/17 14:44 06/19/17 10:13 Dextrose (Dextrose 50%) STAT PRN IV Hypoglycemia 05/23/17 12:15 06/22/17 12:14 Divalproex Sodium (Depakote ER) 1,000 mg EVERY 12 HOURS ORAL 05/29/17 09:00 06/28/17 08:59 06/17/17 21:44 Docusate Sodium (Colace) 100 mg TWICE A DAY ORAL 06/08/17 18:00 07/08/17 17:59 06/11/17 10:03 Dolutegravir Sodium (Tivicay) 50 mg DAILY ORAL 06/19/17 09:00 07/19/17 08:59 06/19/17 11:57 Emtricitabine/ Tenofovir (Truvada 200/ 300mg) 1 tab DAILY ORAL 06/19/17 11:00 07/19/17 10:59 06/19/17 11:56 Ethambutol HCl (Myambutol) 600 mg DAILY ORAL 06/12/17 14:45 07/12/17 14:44 06/19/17 10:13 Fluoxetine HCl (PROzac) 20 mg DAILY ORAL 05/27/17 09:00 06/26/17 08:59 06/19/17 10:12 Folic Acid (Folate) 1 mg DAILY ORAL 05/27/17 09:00 06/26/17 08:59 06/18/17 09:48 Heparin Sodium (Porcine) (Heparin 5000 units/ml) 5,000 units EVERY 12 HOURS SUBQ 05/23/17 21:00 1/8/18 20:59 06/18/17 20:57 Lactulose (Cephulac) 10 gm THREE TIMES A DAY ORAL 06/08/17 13:00 07/08/17 12:59 06/11/17 10:05 Magnesium Oxide (Mag-Ox 400mg) 500 mg THREE TIMES A DAY ORAL 06/12/17 19:30 07/12/17 19:29 06/18/17 15:06 Multivitamins (Multivitamins) 1 tab DAILY ORAL 05/31/17 09:00 06/30/17 08:59 06/18/17 09:49 Ondansetron HCl (Zofran) 4 mg Q6H PRN IVP Nausea & Vomiting 05/23/17 12:15 06/22/17 12:14 Pneumococcal Polyvalent Vaccine (Pneumovax) 0.5 ml ONCE ONCE IM 06/20/17 09:00 06/20/17 09:01 UNV Polyethylene Glycol (Miralax) 17 gm DAILYPRN PRN ORAL Constipation 05/23/17 12:15 06/22/17 12:14 Prednisone (predniSONE) 40 mg DAILY ORAL 06/19/17 10:00 07/19/17 09:59 Ranitidine HCl (Zantac) 150 mg BEDTIME ORAL 05/26/17 21:00 06/25/17 20:59 06/13/17 20:47 Rifabutin (Mycobutin) 300 mg DAILY ORAL 06/12/17 14:45 07/12/17 14:44 06/19/17 10:13 Thiamine HCl (Vitamin B1) 100 mg DAILY ORAL 05/31/17 09:00 06/30/17 08:59 06/18/17 09:50 Trimethoprim/ Sulfamethoxazole (Bactrim-DS) 1 ea DAILY ORAL 06/16/17 09:00 06/23/17 08:59 06/19/17 10:13 Haydee Tucker M.D. Jun 19, 2017 12:32
--- NOTE | 2017-06-19 13:44 | GI Progress Note ---
Assessment/Plan Problems: (1) Generalized weakness ICD Codes: R53.1 - Weakness SNOMED: 27066097 (2) Anemia ICD Codes: D64.9 - Anemia, unspecified SNOMED: 981679028 (3) Severe protein-calorie malnutrition ICD Codes: E43 - Unspecified severe protein-calorie malnutrition SNOMED: 063732045 (4) Atypical pneumonia ICD Codes: J18.9 - Pneumonia, unspecified organism SNOMED: 935373074 (5) Protein calorie malnutrition ICD Codes: E46 - Unspecified protein-calorie malnutrition SNOMED: 086721968 Qualifiers: Qualified Codes: E44.0 - Moderate protein-calorie malnutrition (6) Diarrhea ICD Codes: R19.7 - Diarrhea, unspecified SNOMED: 64309564 Qualifiers: Qualified Codes: R19.7 - Diarrhea, unspecified Status: unchanged Status Narrative Discussed with Dr. Gamez. Assessment/Plan CT chest reviewed. cdiff negative iron levels unremarkable HIV positive airborne r/o TB KUB r/o chronic pancreatitis >> unremarkable OB stool r/o GI bleed >> negative Tissue Transglutaminase IgA r/o celiac >> negative Failure to thrive anorexia anemia - needs repeat H&H PNA MAC infection Diarrhea vs constipation fu ID, oncology recs cont bowel regime monitor H&H, prn transfusions bowel regime ppi folate PO H2B fu labs Subjective Subjective refusing labs Objective Last 24 Hour Vital Signs Date Time Temp Pulse Resp B/P (MAP) Pulse Ox O2 Delivery O2 Flow Rate FiO2 06/19/17 11:50 97.5 79 20 119/81 100 06/19/17 08:30 97.7 75 20 117/81 100 06/19/17 04:00 100 Room Air 06/19/17 03:30 97.3 71 20 102/65 100 Room Air 06/18/17 20:00 98.1 82 18 104/77 99 06/18/17 20:00 99 Venturi Mask 8.0 06/18/17 16:00 Room Air 06/18/17 15:54 97.9 79 20 98/64 98 Intake and Output 06/18/17 06/19/17 19:00 07:00 Intake Total 560 ml Output Total 450 ml Balance 110 ml Intake Oral 560 ml Output Urine Total 450 ml # Voids 2 # Bowel Movements 1 3 Height (Feet): 5 Height (Inches): 10.00 Weight (Pounds): 90 General Appearance: WD/WN, no apparent distress, alert, thin Cardiovascular: normal rate Respiratory/Chest: normal breath sounds, no respiratory distress Abdominal Exam: normal bowel sounds, non tender, soft Extremities: non-tender Alyssa Felix N.P. Jun 19, 2017 13:44
[2017-06-19 15:53] VITALS: BP 115/85
--- NOTE | 2017-06-19 19:26 | Cardiology Progress Note ---
Assessment/Plan Assessment/Plan 1. Sinus tachycardia, resolved, due to sepsis, hypovolemia, hypoxemia. Normal LV systolic function with LVEF at 50%. 2. Small pericardial effusion. 3. Hypotension, resolved. 4. Moderate pulmonary HTN. Subjective Subjective No cardiac events noted. Objective Last 24 Hour Vital Signs Date Time Temp Pulse Resp B/P (MAP) Pulse Ox O2 Delivery O2 Flow Rate FiO2 06/19/17 16:00 Room Air 06/19/17 15:53 98.2 76 20 115/85 100 06/19/17 12:00 Room Air 06/19/17 11:50 97.5 79 20 119/81 100 06/19/17 08:30 Room Air 06/19/17 08:30 97.7 75 20 117/81 100 06/19/17 04:00 100 Room Air 06/19/17 03:30 97.3 71 20 102/65 100 Room Air 06/18/17 20:00 98.1 82 18 104/77 99 06/18/17 20:00 99 Venturi Mask 8.0 Intake and Output 06/18/17 06/19/17 19:00 07:00 Intake Total 560 ml Output Total 450 ml Balance 110 ml Intake Oral 560 ml Output Urine Total 450 ml # Voids 2 # Bowel Movements 1 3 2D Echo: LVEF 50%, Mild AR, Grade II pseudo-normal LV physiology, RVSP 19 mmHg Microbiology Date/Time Source Procedure Growth Status 06/18/17 11:30 Bone Marrow Gram Stain - Final Resulted 06/18/17 11:30 Bone Marrow Aerobic Culture - Preliminary Resulted 06/18/17 11:30 Bone Marrow Anaerobic Culture Pending Resulted Objective GENERAL: No acute respiratory distress HEENT: Atraumatic, normocephalic, PERRLA, EOMI. NECK: JVP < 5 cm, no carotid bruit. LUNGS: Decreased breath sounds. CARDIOVASCULAR: Regular rate rhythm. Normal S1S2, no murmurs, gallops or rubs. ABDOMEN: Soft, nontender, and nondistended. EXTREMITIES: 1+ B/L edema. VIET SCHROEDER Jun 19, 2017 19:26
--- NOTE | 2017-06-19 19:46 | General Progress Note ---
Assessment/Plan Assessment/Plan ASSESSMENT/PLAN # Leukopenia 2/2 HIV --> unfortunately has refused bone marrow biopsy, have explained him the risks and of potentially missing a diagnosis such as lymphoma --> bone marrow biopsy completed 06/18/17 and preliminary is negative, final results are pending # Anemia 2/2 HIV, watch counts, transfuse if hgb below 7 -->Low folate level, continue PO folate # Anemia 2/2 folic acid deficiency # HIV with very low CD4 count --> vl is high # AFB + for Mycobacterium avium. To be confirmed with bone marrow bx 06/17/17 --> on abx for disseminated MAC # MSSA PNA # Interstitial lung disease --> may require lung biopsy # acute hypoxemic RF # severe protein calorie malnutrition # diarrhea, better. C. diff negative. GI following # alcohol dependence # depression Subjective Constitutional: Denies: no symptoms, chills, diaphoresis, fever, malaise, weakness, other HEENT: Denies: no symptoms, eye pain, blurred vision, tearing, double vision, ear pain, ear discharge, nose pain, nose congestion, throat pain, throat swelling, mouth pain, mouth swelling, other Cardiovascular: Denies: no symptoms, chest pain, edema, irregular heart rate, lightheadedness, palpitations, syncope, other Respiratory: Denies: no symptoms, cough, orthopnea, shortness of breath, SOB with excertion, SOB at rest, sputum, stridor, wheezing, other Gastrointestinal/Abdominal: Denies: no symptoms, abdomen distended, abdominal pain, black stools, tarry stools, blood in stool, constipated, diarrhea, difficulty swallowing, nausea, poor appetite, poor fluid intake, rectal bleeding , vomiting, other Genitourinary: Denies: no symptoms, burning, discharge, frequency, flank pain, hematuria, incontinence, pain, urgency, other Hematologic/Lymphatic: Reports: anemia Allergies: Coded Allergies: No Known Allergies (Unverified , 05/23/17) Subjective s/p bone marrow bx yesterday Objective Last 24 Hour Vital Signs Date Time Temp Pulse Resp B/P (MAP) Pulse Ox O2 Delivery O2 Flow Rate FiO2 06/19/17 16:00 Room Air 06/19/17 15:53 98.2 76 20 115/85 100 06/19/17 12:00 Room Air 06/19/17 11:50 97.5 79 20 119/81 100 06/19/17 08:30 Room Air 06/19/17 08:30 97.7 75 20 117/81 100 06/19/17 04:00 100 Room Air 06/19/17 03:30 97.3 71 20 102/65 100 Room Air 06/18/17 20:00 98.1 82 18 104/77 99 06/18/17 20:00 99 Venturi Mask 8.0 Intake and Output 06/18/17 06/19/17 19:00 07:00 Intake Total 560 ml Output Total 450 ml Balance 110 ml Intake Oral 560 ml Output Urine Total 450 ml # Voids 2 # Bowel Movements 1 3 Height (Feet): 5 Height (Inches): 10.00 Weight (Pounds): 90 General Appearance: no apparent distress EENT: normal ENT inspection Neck: normal alignment Cardiovascular: normal peripheral pulses Respiratory/Chest: lungs clear Abdomen: normal bowel sounds Extremities: non-tender Edema: no edema noted Arm (L), no edema noted Leg (L), no edema noted Leg (R) Edema: mild edema Neurologic: alert Skin: warm/dry Nikhil Woodward Jun 19, 2017 19:46
[2017-06-19 20:17] VITALS: BP 96/65
[2017-06-20 00:59] VITALS: BP 114/75
[2017-06-20 04:27] VITALS: BP 116/70
[2017-06-20 08:00] VITALS: BP 118/78
[2017-06-20] MEDS: Lactulose 10gm/15ml UDC ORAL SCH ×3 (09:00→18:00)
[2017-06-20] MEDS: Depakote ER 500mg tab ORAL SCH ×2 (09:00→20:54)
[2017-06-20] MEDS ORDERED: Pneumococcal Vaccine 25mcg/0.5ml IM ONE (09:00)
[2017-06-20] MEDS: Heparin 5000 units/ml inj SUBQ SCH ×2 (09:00→20:53)
[2017-06-20] MEDS: Magnesium Oxide 400mg tab ORAL SCH ×3 (09:00→18:16)
[2017-06-20] MEDS: Thiamine 100mg tab ORAL SCH (09:00)
[2017-06-20] MEDS: Docusate 100mg cap ORAL SCH ×2 (09:00→18:00)
[2017-06-20 09:24] LABS: ANION GAP 5 mmol/L (5-15); BLOOD UREA NITROGEN 18 mg/dL (7-18); CALCIUM 7.5 MG/DL (8.5-10.1); CARBON DIOXIDE 28 MMOL/L (21-32); CHLORIDE 96 MMOL/L (98-107); CREATININE 0.7 MG/DL (0.55-1.30); POTASSIUM 3.5 MMOL/L (3.5-5.1); SODIUM 129 MMOL/L (136-145)
[2017-06-20 09:34] LABS: HEMATOCRIT 29.1 % (42.0-52.0); HEMOGLOBIN 9.5 G/DL (14.2-18.0); MEAN CORPUSCULAR VOLUME 88 FL (80-99); PLATELET COUNT 260 K/UL (150-450); RED CELL DISTRIBUTION WIDTH 13.9 % (11.6-14.8); WHITE BLOOD COUNT 4.9 K/UL (4.8-10.8)
[2017-06-20] MEDS: Dolutegravir Sodium 50mg tab ORAL SCH (10:00)
[2017-06-20] MEDS: Bactrim-DS 1 tab ORAL SCH (10:01)
[2017-06-20] MEDS: Rifabutin 150mg cap ORAL SCH (10:02)
[2017-06-20 12:00] VITALS: BP 120/80
--- NOTE | 2017-06-20 12:09 | Infectious Diseases Prog Note ---
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 Typicall isolated MAC infection is seen in immunocompetent patients. Given he is HIV with probably AIDS with a low CD4 as very low lymphocyte counts (CD4 unable to be calculated) and his clinical presentation of wt loss, intermittent fevers, leukopenia/anemia , pulmonary infiltrates are very suggestive of the diagnosis. Diagnosis is confirmed by either isolation of MAC from blood and/or bone marrow. Also possible concomitant PCP given extensive GGO, and possible hypoxia -s/p bone marrow biopsy 06/18 -path: P -cx p Pneumonia. . Sp Cx : MSSA SP Rx - s/p Bronchoscopy 06/10: friable mucosa, mild mucoid secretions; cx normal lebron -BAL cytology: rare atypical cells. Neg GMS and PCP stain CT of Abd /Bilateral pulmonary alveolar infiltrates consistent with pneumonia.- patient not hypoxic, not febrile- lower suspicion PCP; PCP DFA neg AFBx 3 : Neg ( 3rd from 05/26 not in EMR ) now AFB Cx 06/16 05/25 : +MAC; MTB PCR : Neg T Spot : neg Crytpo and blastomycosis: JOHANNA Neg ; RF + histo ab, Cocci ab : neg CT: Extensive interstitial and airspace parenchymal disease, and honeycomb appearance of much of the lower lobe and right middle lobe interstitial component, HIV/AIDS: first test negative repeat, repeat +; VL 973,150; CD4 unable to be calculated due to low absolute lymphocyte count -repeat CD4 p -Hep a immune -Hep b not immune, neg hep C -RPR neg -GC/CL neg - HLA B27 + Chronic diarrhea resolved, now constipated Stool for ova and parasite ( ? sent ) stool Cx : neg ? pancreatic insufficiency due to chronic alcohol abuse. also possibly due to disseminated MAC Elevated ESR , CRP and RF JOHANNA : neg Leukopenia/anemia Anemia and leukopenia PLAN: -Continue tx for possible disseminated MAC with Azithromycin 600mg qd, Rifabutin 300mg qd and Ethambutol 600mg qd #9 -f/u AFB bcx -for bone marrow biopsy on 06/17 and send tissue for path, AFB and fungal cx - on Truvada and Dolutegravir ( started 06/19 ) will like to monitor patient in house for first 48-72 hrs after initiation of treatment - f/u HIV genotype -f/u BAL cx (fungal, AFB), bone marrow bx path and cx -f/u repeat CD4 as lymphocyte count improving -continue Bactrim DS 1 tab qd for PCP ppx - child support case officer consulted to start working on HIV clinic to continue HIV and MAC to be set up prior to discharge; risk of readmission if not follow up with a HIV provider upon discharge. 06/15 Bactrim high dose #4 06/05 SP Ancef d# 05/30 SP Zithromax d# 5 / 06/01 SP ( refusing) Flagyl d# 46 05/27 SP vancomycin, cefepime d# 5, Monitor CBC/CMP f/u Fungal and AFB blood Cx Discussed with RN Subjective Allergies: Coded Allergies: No Known Allergies (Unverified , 05/23/17) Subjective afebrile Objective Vital Signs Last 24 Hour Vital Signs Date Time Temp Pulse Resp B/P (MAP) Pulse Ox O2 Delivery O2 Flow Rate FiO2 06/20/17 08:00 98.0 69 18 118/78 06/20/17 04:29 100 Venturi Mask 8.0 06/20/17 04:27 98.0 80 21 116/70 100 Venturi Mask 8.0 06/20/17 00:59 100 Venturi Mask 8.0 06/20/17 00:59 98.0 84 21 114/75 100 Venturi Mask 06/19/17 20:17 98.0 80 21 96/65 100 Venturi Mask 8.0 06/19/17 20:17 100 Venturi Mask 8.0 06/19/17 16:00 Room Air 06/19/17 15:53 98.2 76 20 115/85 100 Height (Feet): 5 Height (Inches): 10.00 Weight (Pounds): 90 HEENT: atraumatic Respiratory/Chest: no respiratory distress Cardiovascular: regular rhythm Abdomen: soft, non tender Microbiology Date/Time Source Procedure Growth Status 06/18/17 11:30 Bone Marrow Gram Stain - Final Resulted 06/18/17 11:30 Bone Marrow Aerobic Culture - Preliminary NO GROWTH AFTER 48 HOURS Resulted 06/18/17 11:30 Bone Marrow Anaerobic Culture - Preliminary NO GROWTH AFTER 48 HOURS Resulted Laboratory Tests Test 06/20/17 09:05 White Blood Count 4.9 K/UL (4.8-10.8) Red Blood Count 3.30 M/UL (4.70-6.10) L Hemoglobin 9.5 G/DL (14.2-18.0) L Hematocrit 29.1 % (42.0-52.0) L Mean Corpuscular Volume 88 FL (80-99) Mean Corpuscular Hemoglobin 28.8 PG (27.0-31.0) Mean Corpuscular Hemoglobin Concent 32.6 G/DL (32.0-36.0) Red Cell Distribution Width 13.9 % (11.6-14.8) Platelet Count 260 K/UL (150-450) Mean Platelet Volume 7.1 FL (6.5-10.1) Neutrophils (%) (Auto) % (45.0-75.0) Lymphocytes (%) (Auto) % (20.0-45.0) Monocytes (%) (Auto) % (1.0-10.0) Eosinophils (%) (Auto) % (0.0-3.0) Basophils (%) (Auto) % (0.0-2.0) Neutrophils % (Manual) Pending Lymphocytes % (Manual) Pending Platelet Estimate Pending Platelet Morphology Pending Sodium Level 129 MMOL/L (136-145) L Potassium Level 3.5 MMOL/L (3.5-5.1) Chloride Level 96 MMOL/L (98-107) L Carbon Dioxide Level 28 MMOL/L (21-32) Anion Gap 5 mmol/L (5-15) Blood Urea Nitrogen 18 mg/dL (7-18) Creatinine 0.7 MG/DL (0.55-1.30) Estimat Glomerular Filtration Rate > 60 mL/min (>60) Glucose Level 95 MG/DL (74-106) Calcium Level 7.5 MG/DL (8.5-10.1) L Current Medications Medications (Trade) Dose Ordered Sig/Anna Route PRN Reason Start Time Stop Time Status Last Admin Dose Admin Acetaminophen (Tylenol) 650 mg Q4H PRN ORAL T>100.5 05/23/17 12:15 06/22/17 12:14 06/20/17 10:07 Albuterol/ Ipratropium (Albuterol/ Ipratropium) 3 ml Q4H PRN HHN Shortness of Breath 06/19/17 09:30 06/24/17 09:29 Albuterol/ Ipratropium (Albuterol/ Ipratropium) 3 ml Q6HRT HHN 06/11/17 13:00 06/16/17 23:59 06/15/17 23:54 Dextrose (Dextrose 50%) STAT PRN IV Hypoglycemia 05/23/17 12:15 06/22/17 12:14 Divalproex Sodium (Depakote ER) 1,000 mg EVERY 12 HOURS ORAL 05/29/17 09:00 06/28/17 08:59 06/17/17 21:44 Docusate Sodium (Colace) 100 mg TWICE A DAY ORAL 06/08/17 18:00 07/08/17 17:59 06/11/17 10:03 Dolutegravir Sodium (Tivicay) 50 mg DAILY ORAL 06/19/17 09:00 07/19/17 08:59 06/20/17 10:00 Emtricitabine/ Tenofovir (Truvada 200/ 300mg) 1 tab DAILY ORAL 06/19/17 11:00 07/19/17 10:59 06/20/17 10:02 Ethambutol HCl (Myambutol) 600 mg DAILY ORAL 06/12/17 14:45 07/12/17 14:44 06/20/17 10:01 Fluoxetine HCl (PROzac) 20 mg DAILY ORAL 05/27/17 09:00 06/26/17 08:59 06/19/17 10:12 Folic Acid (Folate) 1 mg DAILY ORAL 05/27/17 09:00 06/26/17 08:59 06/18/17 09:48 Heparin Sodium (Porcine) (Heparin 5000 units/ml) 5,000 units EVERY 12 HOURS SUBQ 05/23/17 21:00 06/22/17 20:59 06/18/17 20:57 Lactulose (Cephulac) 10 gm THREE TIMES A DAY ORAL 06/08/17 13:00 07/08/17 12:59 06/11/17 10:05 Magnesium Oxide (Mag-Ox 400mg) 500 mg THREE TIMES A DAY ORAL 06/12/17 19:30 07/12/17 19:29 06/19/17 18:54 Multivitamins (Multivitamins) 1 tab DAILY ORAL 05/31/17 09:00 06/30/17 08:59 06/18/17 09:49 Ondansetron HCl (Zofran) 4 mg Q6H PRN IVP Nausea & Vomiting 05/23/17 12:15 06/22/17 12:14 Polyethylene Glycol (Miralax) 17 gm DAILYPRN PRN ORAL Constipation 05/23/17 12:15 06/22/17 12:14 Prednisone (predniSONE) 40 mg DAILY ORAL 06/19/17 10:00 07/19/17 09:59 Ranitidine HCl (Zantac) 150 mg BEDTIME ORAL 05/26/17 21:00 06/25/17 20:59 06/13/17 20:47 Rifabutin (Mycobutin) 300 mg DAILY ORAL 06/12/17 14:45 07/12/17 14:44 06/20/17 10:02 Thiamine HCl (Vitamin B1) 100 mg DAILY ORAL 05/31/17 09:00 06/30/17 08:59 06/18/17 09:50 Trimethoprim/ Sulfamethoxazole (Bactrim-DS) 1 ea DAILY ORAL 06/16/17 09:00 06/23/17 08:59 06/20/17 10:01 AMARIS BRIGGS M.D. Jun 20, 2017 12:09
--- NOTE | 2017-06-20 13:03 | Pulmonology Progress Note ---
Assessment/Plan Assessment/Plan ASSESSMENT disseminated MAC infection MSSA PNA, s/p Rx Interstitial lung disease acute hypoxemic RF requiring VM -resolved s/p bronchoscopy 06/10 HIV disease, likely AIDS severe protein calorie malnutrition diarrhea -resolved alcohol dependence depression hypo Mg PLAN OF CARE MS floor off respiratory isolation supplemental O2 titrate O2 to keep sat above 92%, stable on RA now pulmonary toilet on Rx for disseminated MAC infection as per ID management started06/19 on ART as per ID bone marrow biopsy -no fungal organisms sputum AFB x 3 ( 2 smear negative, but one cx + AFB) PPD negative , MTB PCR negative CT chest noted c/w ILD sputum + Staph aureus , repeated sputum cx negative, s/p Rx for PNA / AFB + MAC PCP negative first rapid HIV test negative , repeated rapid HIV test preliminary positive CD4 count was unable to be calculated due to low absolute lymphocyte count , probably should be repeated when lymph better, likely AIDS on steroids with slow tapering and clinically with improvement, s/p Bronchoscopy with bronchoalveolar lavage, s/p BAL BLL, cx negative, biopsy - no fungal cells with findings of :Bilateral lung infiltrates, Friable mucosa but no active bleeding, Mild mucoid secretions, Normal endobronchial anatomy to subsegmental bronchi Mg replaced prior give 500 cc NS bolus ( low Na) and check BMP in am heme following , venous Duplex BLE negative psych follows, optimized psych med regimen Diarrhea resolved GI following for the patient's chronic diarrhea. 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 DVT, GI prophylaxis awaiting for clearance from Department of Health case discussed and evaluated by supervising physician Subjective Allergies: Coded Allergies: No Known Allergies (Unverified , 05/23/17) Subjective afebrile, no leukocytosis diarrhea resolved on RA pulse ox stable no signs of respiratory distress Objective Last 24 Hour Vital Signs Date Time Temp Pulse Resp B/P (MAP) Pulse Ox O2 Delivery O2 Flow Rate FiO2 06/20/17 12:00 Venturi Mask 8.0 06/20/17 12:00 97.8 71 18 120/80 97 06/20/17 08:00 98.0 69 18 118/78 06/20/17 08:00 100 Venturi Mask 8.0 06/20/17 04:29 100 Venturi Mask 8.0 06/20/17 04:27 98.0 80 21 116/70 100 Venturi Mask 8.0 06/20/17 00:59 100 Venturi Mask 8.0 06/20/17 00:59 98.0 84 21 114/75 100 Venturi Mask 06/19/17 20:17 98.0 80 21 96/65 100 Venturi Mask 8.0 06/19/17 20:17 100 Venturi Mask 8.0 06/19/17 16:00 Room Air 06/19/17 15:53 98.2 76 20 115/85 100 Intake and Output 06/19/17 06/20/17 19:00 07:00 Intake Total 720 ml Output Total 700 ml 450 ml Balance 20 ml -450 ml Intake Oral 720 ml Output Urine Total 700 ml 450 ml # Voids 1 # Bowel Movements 3 1 Objective General Appearance: no acute distress, cachetic, A/A/O x 3 male HEENT: normocephalic, atraumatic, anicteric, mucous membranes moist, Respiratory/Chest: clear with moderate air exchange , no respiratory distress, no accessory muscle use Cardiovascular: normal rate Abdomen: normal bowel sounds, soft, non tender Extremities: no edema, pedal pulses normal Neurologic/Psychiatric: alert, oriented x 3, responsive Musculoskeletal: normal muscle bulk Microbiology Date/Time Source Procedure Growth Status 06/18/17 11:30 Bone Marrow Gram Stain - Final Resulted 06/18/17 11:30 Bone Marrow Aerobic Culture - Preliminary NO GROWTH AFTER 48 HOURS Resulted 06/18/17 11:30 Bone Marrow Anaerobic Culture - Preliminary NO GROWTH AFTER 48 HOURS Resulted Laboratory Tests 06/20/17 09:05: White Blood Count 4.9, Red Blood Count 3.30L, Hemoglobin 9.5L, Hematocrit 29.1L , Mean Corpuscular Volume 88, Mean Corpuscular Hemoglobin 28.8, Mean Corpuscular Hemoglobin Concent 32.6, Red Cell Distribution Width 13.9, Platelet Count 260, Mean Platelet Volume 7.1, Neutrophils (%) (Auto) , Lymphocytes (%) ( Auto) , Monocytes (%) (Auto) , Eosinophils (%) (Auto) , Basophils (%) (Auto) , Neutrophils % (Manual) [Pending], Lymphocytes % (Manual) [Pending], Platelet Estimate [Pending], Platelet Morphology [Pending], Sodium Level 129L, Potassium Level 3.5, Chloride Level 96L, Carbon Dioxide Level 28, Anion Gap 5, Blood Urea Nitrogen 18, Creatinine 0.7, Estimat Glomerular Filtration Rate > 60, Glucose Level 95, Calcium Level 7.5L Current Medications Medications (Trade) Dose Ordered Sig/Anna Route PRN Reason Start Time Stop Time Status Last Admin Dose Admin Acetaminophen (Tylenol) 650 mg Q4H PRN ORAL T>100.5 05/23/17 12:15 06/22/17 12:14 06/20/17 10:07 Albuterol/ Ipratropium (Albuterol/ Ipratropium) 3 ml Q4H PRN HHN Shortness of Breath 06/19/17 09:30 06/24/17 09:29 Albuterol/ Ipratropium (Albuterol/ Ipratropium) 3 ml Q6HRT HHN 06/11/17 13:00 06/16/17 23:59 06/15/17 23:54 Azithromycin (Zithromax) 600 mg DAILY ORAL 06/20/17 13:00 Dextrose (Dextrose 50%) STAT PRN IV Hypoglycemia 05/23/17 12:15 06/22/17 12:14 Divalproex Sodium (Depakote ER) 1,000 mg EVERY 12 HOURS ORAL 05/29/17 09:00 06/28/17 08:59 06/17/17 21:44 Docusate Sodium (Colace) 100 mg TWICE A DAY ORAL 06/08/17 18:00 07/08/17 17:59 06/11/17 10:03 Dolutegravir Sodium (Tivicay) 50 mg DAILY ORAL 06/19/17 09:00 07/19/17 08:59 06/20/17 10:00 Emtricitabine/ Tenofovir (Truvada 200/ 300mg) 1 tab DAILY ORAL 06/19/17 11:00 07/19/17 10:59 06/20/17 10:02 Ethambutol HCl (Myambutol) 600 mg DAILY ORAL 06/12/17 14:45 07/12/17 14:44 06/20/17 10:01 Fluoxetine HCl (PROzac) 20 mg DAILY ORAL 05/27/17 09:00 06/26/17 08:59 06/19/17 10:12 Folic Acid (Folate) 1 mg DAILY ORAL 05/27/17 09:00 06/26/17 08:59 06/18/17 09:48 Heparin Sodium (Porcine) (Heparin 5000 units/ml) 5,000 units EVERY 12 HOURS SUBQ 05/23/17 21:00 06/22/17 20:59 06/18/17 20:57 Lactulose (Cephulac) 10 gm THREE TIMES A DAY ORAL 06/08/17 13:00 07/08/17 12:59 06/11/17 10:05 Magnesium Oxide (Mag-Ox 400mg) 500 mg THREE TIMES A DAY ORAL 06/12/17 19:30 07/12/17 19:29 06/19/17 18:54 Multivitamins (Multivitamins) 1 tab DAILY ORAL 05/31/17 09:00 06/30/17 08:59 06/18/17 09:49 Ondansetron HCl (Zofran) 4 mg Q6H PRN IVP Nausea & Vomiting 05/23/17 12:15 06/22/17 12:14 Polyethylene Glycol (Miralax) 17 gm DAILYPRN PRN ORAL Constipation 05/23/17 12:15 06/22/17 12:14 Prednisone (predniSONE) 40 mg DAILY ORAL 06/19/17 10:00 07/19/17 09:59 Ranitidine HCl (Zantac) 150 mg BEDTIME ORAL 05/26/17 21:00 06/25/17 20:59 06/13/17 20:47 Rifabutin (Mycobutin) 300 mg DAILY ORAL 06/12/17 14:45 07/12/17 14:44 06/20/17 10:02 Thiamine HCl (Vitamin B1) 100 mg DAILY ORAL 05/31/17 09:00 06/30/17 08:59 06/18/17 09:50 Trimethoprim/ Sulfamethoxazole (Bactrim-DS) 1 ea DAILY ORAL 06/16/17 09:00 06/23/17 08:59 06/20/17 10:01 Bob EstevezAnaly smith NP Jun 20, 2017 13:03
[2017-06-20] MEDS ORDERED: Sodium Chloride 500ML 500 ML IV ONE (13:15)
[2017-06-20] MEDS: Azithromycin 600mg Tab ORAL SCH (14:33)
[2017-06-20 16:00] VITALS: BP 117/69
[2017-06-20 20:00] VITALS: BP 115/83
--- NOTE | 2017-06-20 22:29 | General Progress Note ---
Assessment/Plan Status: unchanged Assessment/Plan ASSESSMENT/PLAN # Leukopenia 2/2 HIV --> unfortunately has refused bone marrow biopsy, have explained him the risks and of potentially missing a diagnosis such as lymphoma --> bone marrow biopsy completed 06/18/17 and preliminary is negative, final results are pending # Anemia 2/2 HIV, watch counts, transfuse if hgb below 7 -->Low folate level, continue PO folate # Anemia 2/2 folic acid deficiency # HIV with very low CD4 count --> vl is high # AFB + for Mycobacterium avium. To be confirmed with bone marrow bx 06/17/17 --> on abx for disseminated MAC # MSSA PNA # Interstitial lung disease --> may require lung biopsy # acute hypoxemic RF # severe protein calorie malnutrition # diarrhea, better. C. diff negative. GI following # alcohol dependence # depression Subjective Date patient seen: Jun 20, 2017 Time patient seen: 12:00 Constitutional: Denies: no symptoms, chills, diaphoresis, fever, malaise, weakness, other HEENT: Denies: no symptoms, eye pain, blurred vision, tearing, double vision, ear pain, ear discharge, nose pain, nose congestion, throat pain, throat swelling, mouth pain, mouth swelling, other Cardiovascular: Denies: no symptoms, chest pain, edema, irregular heart rate, lightheadedness, palpitations, syncope, other Respiratory: Denies: no symptoms, cough, orthopnea, shortness of breath, SOB with excertion, SOB at rest, sputum, stridor, wheezing, other Gastrointestinal/Abdominal: Denies: no symptoms, abdomen distended, abdominal pain, black stools, tarry stools, blood in stool, constipated, diarrhea, difficulty swallowing, nausea, poor appetite, poor fluid intake, rectal bleeding , vomiting, other Genitourinary: Denies: no symptoms, burning, discharge, frequency, flank pain, hematuria, incontinence, pain, urgency, other Neurologic/Psychiatric: Denies: no symptoms, anxiety, depressed, emotional problems, headache, numbness, paresthesia, pre-existing deficit, seizure, tingling, tremors, weakness, other Hematologic/Lymphatic: Reports: anemia Allergies: Coded Allergies: No Known Allergies (Unverified , 05/23/17) Subjective Anemia stable. Resting in bed. No major events. Objective Last 24 Hour Vital Signs Date Time Temp Pulse Resp B/P (MAP) Pulse Ox O2 Delivery O2 Flow Rate FiO2 06/20/17 16:00 97.8 70 18 117/69 100 06/20/17 12:00 Venturi Mask 8.0 06/20/17 12:00 97.8 71 18 120/80 97 06/20/17 08:00 98.0 69 18 118/78 06/20/17 08:00 100 Venturi Mask 8.0 06/20/17 04:29 100 Venturi Mask 8.0 06/20/17 04:27 98.0 80 21 116/70 100 Venturi Mask 8.0 06/20/17 00:59 100 Venturi Mask 8.0 06/20/17 00:59 98.0 84 21 114/75 100 Venturi Mask Intake and Output 06/19/17 06/20/17 19:00 07:00 Intake Total 720 ml Output Total 700 ml 450 ml Balance 20 ml -450 ml Intake Oral 720 ml Output Urine Total 700 ml 450 ml # Voids 1 # Bowel Movements 3 1 Laboratory Tests 06/20/17 09:05: White Blood Count 4.9, Red Blood Count 3.30L, Hemoglobin 9.5L, Hematocrit 29.1L , Mean Corpuscular Volume 88, Mean Corpuscular Hemoglobin 28.8, Mean Corpuscular Hemoglobin Concent 32.6, Red Cell Distribution Width 13.9, Platelet Count 260, Mean Platelet Volume 7.1, Neutrophils (%) (Auto) , Lymphocytes (%) ( Auto) , Monocytes (%) (Auto) , Eosinophils (%) (Auto) , Basophils (%) (Auto) , Differential Total Cells Counted 100, Neutrophils % (Manual) 85H, Lymphocytes % (Manual) 7L, Monocytes % (Manual) 6, Eosinophils % (Manual) 0, Basophils % ( Manual) 0, Band Neutrophils 2, Platelet Estimate Adequate, Platelet Morphology Normal, Hypochromasia 2+, Sodium Level 129L, Potassium Level 3.5, Chloride Level 96L, Carbon Dioxide Level 28, Anion Gap 5, Blood Urea Nitrogen 18, Creatinine 0.7, Estimat Glomerular Filtration Rate > 60, Glucose Level 95, Calcium Level 7.5L Height (Feet): 5 Height (Inches): 10.00 Weight (Pounds): 90 General Appearance: no apparent distress EENT: normal ENT inspection Neck: normal alignment Cardiovascular: normal rate, regular rhythm Respiratory/Chest: lungs clear, normal breath sounds Abdomen: non tender, soft Edema: no edema noted Arm (L), no edema noted Arm (R), no edema noted Leg (L), no edema noted Leg (R) Skin: warm/dry Nikhil Woodward Jun 20, 2017 22:29
--- NOTE | 2017-06-20 23:37 | Cardiology Progress Note ---
Assessment/Plan Assessment/Plan 1. Sinus tachycardia, resolved, due to sepsis, hypovolemia, hypoxemia. Normal LV systolic function with LVEF at 50%. 2. Small pericardial effusion. 3. Hypotension, resolved. 4. Moderate pulmonary HTN. Subjective Subjective Transferred to the med-surg unit. No cardiac events is seen. Objective Last 24 Hour Vital Signs Date Time Temp Pulse Resp B/P (MAP) Pulse Ox O2 Delivery O2 Flow Rate FiO2 06/20/17 20:00 98.3 80 21 115/83 100 06/20/17 16:00 97.8 70 18 117/69 100 06/20/17 12:00 Venturi Mask 8.0 06/20/17 12:00 97.8 71 18 120/80 97 06/20/17 08:00 98.0 69 18 118/78 06/20/17 08:00 100 Venturi Mask 8.0 06/20/17 04:29 100 Venturi Mask 8.0 06/20/17 04:27 98.0 80 21 116/70 100 Venturi Mask 8.0 06/20/17 00:59 100 Venturi Mask 8.0 06/20/17 00:59 98.0 84 21 114/75 100 Venturi Mask Intake and Output 06/19/17 06/20/17 19:00 07:00 Intake Total 720 ml Output Total 700 ml 450 ml Balance 20 ml -450 ml Intake Oral 720 ml Output Urine Total 700 ml 450 ml # Voids 1 # Bowel Movements 3 1 2D Echo: LVEF 50%, Mild AR, Grade II pseudo-normal LV physiology, RVSP 19 mmHg Laboratory Tests Test 06/20/17 09:05 White Blood Count 4.9 K/UL (4.8-10.8) Red Blood Count 3.30 M/UL (4.70-6.10) L Hemoglobin 9.5 G/DL (14.2-18.0) L Hematocrit 29.1 % (42.0-52.0) L Mean Corpuscular Volume 88 FL (80-99) Mean Corpuscular Hemoglobin 28.8 PG (27.0-31.0) Mean Corpuscular Hemoglobin Concent 32.6 G/DL (32.0-36.0) Red Cell Distribution Width 13.9 % (11.6-14.8) Platelet Count 260 K/UL (150-450) Mean Platelet Volume 7.1 FL (6.5-10.1) Neutrophils (%) (Auto) % (45.0-75.0) Lymphocytes (%) (Auto) % (20.0-45.0) Monocytes (%) (Auto) % (1.0-10.0) Eosinophils (%) (Auto) % (0.0-3.0) Basophils (%) (Auto) % (0.0-2.0) Differential Total Cells Counted 100 Neutrophils % (Manual) 85 % (45-75) H Lymphocytes % (Manual) 7 % (20-45) L Monocytes % (Manual) 6 % (1-10) Eosinophils % (Manual) 0 % (0-3) Basophils % (Manual) 0 % (0-2) Band Neutrophils 2 % (0-8) Platelet Estimate Adequate Platelet Morphology Normal Hypochromasia 2+ Sodium Level 129 MMOL/L (136-145) L Potassium Level 3.5 MMOL/L (3.5-5.1) Chloride Level 96 MMOL/L (98-107) L Carbon Dioxide Level 28 MMOL/L (21-32) Anion Gap 5 mmol/L (5-15) Blood Urea Nitrogen 18 mg/dL (7-18) Creatinine 0.7 MG/DL (0.55-1.30) Estimat Glomerular Filtration Rate > 60 mL/min (>60) Glucose Level 95 MG/DL (74-106) Calcium Level 7.5 MG/DL (8.5-10.1) L Microbiology Date/Time Source Procedure Growth Status 06/18/17 11:30 Bone Marrow Gram Stain - Final Resulted 06/18/17 11:30 Bone Marrow Aerobic Culture - Preliminary NO GROWTH AFTER 48 HOURS Resulted 06/18/17 11:30 Bone Marrow Anaerobic Culture - Preliminary NO GROWTH AFTER 48 HOURS Resulted Objective GENERAL: No acute respiratory distress HEENT: Atraumatic, normocephalic, PERRLA, EOMI. NECK: JVP < 5 cm, no carotid bruit. LUNGS: Decreased breath sounds. CARDIOVASCULAR: Regular rate rhythm. Normal S1S2, no murmurs, gallops or rubs. ABDOMEN: Soft, nontender, and nondistended. EXTREMITIES: 1+ B/L edema. VIET SCHROEDER Jun 20, 2017 23:37
[2017-06-21] VITALS: BP 136/89
[2017-06-21 04:00] VITALS: BP 101/65
[2017-06-21 07:19] LABS: BASOPHILS % (AUTO) 1.2 % (0.0-2.0); EOSINOPHILS % (AUTO) 0.2 % (0.0-3.0); HEMATOCRIT 27.1 % (42.0-52.0); HEMOGLOBIN 9.1 G/DL (14.2-18.0); MEAN CORPUSCULAR VOLUME 88 FL (80-99); MONOCYTES % (AUTO) 7.4 % (1.0-10.0); NEUTROPHILS % (AUTO) 82.2 % (45.0-75.0); PLATELET COUNT 218 K/UL (150-450); RED BLOOD COUNT 3.08 M/UL (4.70-6.10); RED CELL DISTRIBUTION WIDTH 13.7 % (11.6-14.8); WHITE BLOOD COUNT 5.4 K/UL (4.8-10.8)
[2017-06-21 07:40] LABS: ANION GAP 5 mmol/L (5-15); BLOOD UREA NITROGEN 15 mg/dL (7-18); CALCIUM 7.2 MG/DL (8.5-10.1); CARBON DIOXIDE 28 MMOL/L (21-32); CHLORIDE 96 MMOL/L (98-107); CREATININE 0.7 MG/DL (0.55-1.30); POTASSIUM 3.1 MMOL/L (3.5-5.1); SODIUM 129 MMOL/L (136-145)
[2017-06-21 08:00] VITALS: BP 115/70
--- NOTE | 2017-06-21 08:26 | General Progress Note ---
Assessment/Plan Problem List: (1) Interstitial lung disease ICD Codes: J84.9 - Interstitial pulmonary disease, unspecified SNOMED: 015741704 (2) Diarrhea ICD Codes: R19.7 - Diarrhea, unspecified SNOMED: 93824436 Qualifiers: Qualified Codes: R19.7 - Diarrhea, unspecified (3) Protein calorie malnutrition ICD Codes: E46 - Unspecified protein-calorie malnutrition SNOMED: 556378523 Qualifiers: Qualified Codes: E44.0 - Moderate protein-calorie malnutrition (4) Atypical pneumonia ICD Codes: J18.9 - Pneumonia, unspecified organism SNOMED: 252599934 (5) Elevated rheumatoid factor ICD Codes: R76.8 - Other specified abnormal immunological findings in serum SNOMED: 940987149 (6) Generalized weakness ICD Codes: R53.1 - Weakness SNOMED: 65556618 (7) Anemia ICD Codes: D64.9 - Anemia, unspecified SNOMED: 597893235 (8) Fecal impaction ICD Codes: K56.41 - Fecal impaction SNOMED: 29237285 Assessment/Plan CT chest reviewed. cdiff negative iron levels unremarkable HIV positive airborne r/o TB KUB r/o chronic pancreatitis >> unremarkable OB stool r/o GI bleed >> negative Tissue Transglutaminase IgA r/o celiac >> negative Failure to thrive anorexia anemia - needs repeat H&H PNA MAC infection Diarrhea vs constipation fu ID, oncology recs cont bowel regime monitor H&H, prn transfusions bowel regime ppi folate PO H2B fu labs Subjective ROS Limited/Unobtainable: No Allergies: Coded Allergies: No Known Allergies (Unverified , 05/23/17) Subjective no event over night Objective Last 24 Hour Vital Signs Date Time Temp Pulse Resp B/P (MAP) Pulse Ox O2 Delivery O2 Flow Rate FiO2 06/21/17 04:00 100 Venturi Mask 06/21/17 04:00 98.2 80 20 101/65 100 06/21/17 00:00 97.7 75 20 136/89 100 06/21/17 00:00 100 Venturi Mask 06/20/17 20:00 98.3 80 21 115/83 100 06/20/17 20:00 100 Venturi Mask 06/20/17 16:00 97.8 70 18 117/69 100 06/20/17 12:00 Venturi Mask 8.0 06/20/17 12:00 97.8 71 18 120/80 97 Intake and Output 06/20/17 06/21/17 19:00 07:00 Intake Total 1100 ml Output Total 950 ml Balance 1100 ml -950 ml Intake Oral 1100 ml Output Urine Total 950 ml # Voids 4 # Bowel Movements 2 3 Laboratory Tests 06/20/17 09:05: White Blood Count 4.9, Red Blood Count 3.30L, Hemoglobin 9.5L, Hematocrit 29.1L , Mean Corpuscular Volume 88, Mean Corpuscular Hemoglobin 28.8, Mean Corpuscular Hemoglobin Concent 32.6, Red Cell Distribution Width 13.9, Platelet Count 260, Mean Platelet Volume 7.1, Neutrophils (%) (Auto) , Lymphocytes (%) ( Auto) , Monocytes (%) (Auto) , Eosinophils (%) (Auto) , Basophils (%) (Auto) , Differential Total Cells Counted 100, Neutrophils % (Manual) 85H, Lymphocytes % (Manual) 7L, Monocytes % (Manual) 6, Eosinophils % (Manual) 0, Basophils % ( Manual) 0, Band Neutrophils 2, Platelet Estimate Adequate, Platelet Morphology Normal, Hypochromasia 2+, Sodium Level 129L, Potassium Level 3.5, Chloride Level 96L, Carbon Dioxide Level 28, Anion Gap 5, Blood Urea Nitrogen 18, Creatinine 0.7, Estimat Glomerular Filtration Rate > 60, Glucose Level 95, Calcium Level 7.5L 06/21/17 05:45: White Blood Count 5.4, Red Blood Count 3.08L, Hemoglobin 9.1L, Hematocrit 27.1L , Mean Corpuscular Volume 88, Mean Corpuscular Hemoglobin 29.5, Mean Corpuscular Hemoglobin Concent 33.4, Red Cell Distribution Width 13.7, Platelet Count 218, Mean Platelet Volume 9.1, Neutrophils (%) (Auto) 82.2H, Lymphocytes ( %) (Auto) 9.0L, Monocytes (%) (Auto) 7.4, Eosinophils (%) (Auto) 0.2, Basophils (%) (Auto) 1.2, Sodium Level 129L, Potassium Level 3.1L, Chloride Level 96L, Carbon Dioxide Level 28, Anion Gap 5, Blood Urea Nitrogen 15, Creatinine 0.7, Estimat Glomerular Filtration Rate > 60, Glucose Level 75, Calcium Level 7.2L Height (Feet): 5 Height (Inches): 10.00 Weight (Pounds): 90 General Appearance: no apparent distress EENT: normal ENT inspection Neck: supple Cardiovascular: normal rate Respiratory/Chest: decreased breath sounds Abdomen: normal bowel sounds, non tender, soft Extremities: non-tender SAIMA RUBIO Jun 21, 2017 08:26
[2017-06-21] MEDS: Lactulose 10gm/15ml UDC ORAL SCH ×3 (09:00→17:41)
[2017-06-21] MEDS: Sodium Chloride 1gm Tab ORAL SCH ×3 (09:00→17:40)
[2017-06-21] MEDS: Docusate 100mg cap ORAL SCH ×2 (09:00→17:40)
[2017-06-21] MEDS: Depakote ER 500mg tab ORAL SCH ×2 (09:00→21:00)
[2017-06-21] MEDS: Bactrim-DS 1 tab ORAL SCH (09:17)
[2017-06-21] MEDS: Magnesium Oxide 400mg tab ORAL SCH ×3 (09:19→17:39)
[2017-06-21] MEDS: Thiamine 100mg tab ORAL SCH (09:19)
[2017-06-21] MEDS: Dolutegravir Sodium 50mg tab ORAL SCH (09:20)
[2017-06-21] MEDS: Rifabutin 150mg cap ORAL SCH (09:21)
[2017-06-21] MEDS: Azithromycin 600mg Tab ORAL SCH (09:22)
[2017-06-21] MEDS: Heparin 5000 units/ml inj SUBQ SCH ×2 (09:24→21:10)
[2017-06-21 12:00] VITALS: BP 114/68
[2017-06-21 15:45] VITALS: BP 95/66
--- NOTE | 2017-06-21 16:30 | Pulmonology Progress Note ---
Assessment/Plan Assessment/Plan ASSESSMENT disseminated MAC infection MSSA PNA, s/p Rx Interstitial lung disease acute hypoxemic RF requiring VM -resolved s/p bronchoscopy 06/10 HIV disease, likely AIDS severe protein calorie malnutrition diarrhea -resolved alcohol dependence depression hypo Mg PLAN OF CARE MS floor off respiratory isolation supplemental O2 titrate O2 to keep sat above 92%, stable on RA now pulmonary toilet on Rx for disseminated MAC infection as per ID management started06/19 on ART as per ID bone marrow biopsy -no fungal organisms sputum AFB x 3 ( 2 smear negative, but one cx + AFB) PPD negative , MTB PCR negative CT chest noted c/w ILD sputum + Staph aureus , repeated sputum cx negative, s/p Rx for PNA / AFB + MAC PCP negative first rapid HIV test negative , repeated rapid HIV test preliminary positive CD4 count was unable to be calculated due to low absolute lymphocyte count , probably should be repeated when lymph better, likely AIDS on steroids with slow tapering and clinically with improvement, s/p Bronchoscopy with bronchoalveolar lavage, s/p BAL BLL, cx negative, biopsy - no fungal cells with findings of :Bilateral lung infiltrates, Friable mucosa but no active bleeding, Mild mucoid secretions, Normal endobronchial anatomy to subsegmental bronchi Mg replaced prior give 500 cc NS bolus ( low Na) and check BMP in am heme following , venous Duplex BLE negative psych follows, optimized psych med regimen Diarrhea resolved GI following for the patient's chronic diarrhea. 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 DVT, GI prophylaxis replace K refused IV start t give NS bolus, started on sodium chloride pills awaiting for clearance from Department of Health case discussed and evaluated by supervising physician Subjective Allergies: Coded Allergies: No Known Allergies (Unverified , 05/23/17) Subjective afebrile, no leukocytosis diarrhea resolved on RA pulse ox stable no signs of respiratory distress K-3.1 Na still low-129 Objective Last 24 Hour Vital Signs Date Time Temp Pulse Resp B/P (MAP) Pulse Ox O2 Delivery O2 Flow Rate FiO2 06/21/17 15:45 98.9 74 20 95/66 99 Room Air 06/21/17 12:00 98.8 81 18 114/68 96 06/21/17 08:00 99.6 79 18 115/70 95 06/21/17 04:00 100 Venturi Mask 06/21/17 04:00 98.2 80 20 101/65 100 06/21/17 00:00 97.7 75 20 136/89 100 06/21/17 00:00 100 Venturi Mask 06/20/17 20:00 98.3 80 21 115/83 100 06/20/17 20:00 100 Venturi Mask Intake and Output 06/20/17 06/21/17 19:00 07:00 Intake Total 1100 ml Output Total 950 ml Balance 1100 ml -950 ml Intake Oral 1100 ml Output Urine Total 950 ml # Voids 4 # Bowel Movements 2 3 Objective General Appearance: no acute distress, cachetic, A/A/O x 3 male HEENT: normocephalic, atraumatic, anicteric, mucous membranes moist, Respiratory/Chest: clear with moderate air exchange , no respiratory distress, no accessory muscle use Cardiovascular: normal rate Abdomen: normal bowel sounds, soft, non tender Extremities: no edema, pedal pulses normal Neurologic/Psychiatric: alert, oriented x 3, responsive Musculoskeletal: normal muscle bulk Laboratory Tests 06/21/17 05:45: White Blood Count 5.4, Red Blood Count 3.08L, Hemoglobin 9.1L, Hematocrit 27.1L , Mean Corpuscular Volume 88, Mean Corpuscular Hemoglobin 29.5, Mean Corpuscular Hemoglobin Concent 33.4, Red Cell Distribution Width 13.7, Platelet Count 218, Mean Platelet Volume 9.1, Neutrophils (%) (Auto) 82.2H, Lymphocytes ( %) (Auto) 9.0L, Monocytes (%) (Auto) 7.4, Eosinophils (%) (Auto) 0.2, Basophils (%) (Auto) 1.2, Sodium Level 129L, Potassium Level 3.1L, Chloride Level 96L, Carbon Dioxide Level 28, Anion Gap 5, Blood Urea Nitrogen 15, Creatinine 0.7, Estimat Glomerular Filtration Rate > 60, Glucose Level 75, Calcium Level 7.2L Current Medications Medications (Trade) Dose Ordered Sig/Anna Route PRN Reason Start Time Stop Time Status Last Admin Dose Admin Acetaminophen (Tylenol) 650 mg Q4H PRN ORAL T>100.5 05/23/17 12:15 06/22/17 12:14 06/21/17 06:15 Albuterol/ Ipratropium (Albuterol/ Ipratropium) 3 ml Q4H PRN HHN Shortness of Breath 06/19/17 09:30 06/24/17 09:29 Albuterol/ Ipratropium (Albuterol/ Ipratropium) 3 ml Q6HRT HHN 06/11/17 13:00 06/16/17 23:59 06/15/17 23:54 Azithromycin (Zithromax) 600 mg DAILY ORAL 06/20/17 13:00 06/21/17 09:22 Dextrose (Dextrose 50%) STAT PRN IV Hypoglycemia 05/23/17 12:15 06/22/17 12:14 Divalproex Sodium (Depakote ER) 1,000 mg EVERY 12 HOURS ORAL 05/29/17 09:00 06/28/17 08:59 06/17/17 21:44 Docusate Sodium (Colace) 100 mg TWICE A DAY ORAL 06/08/17 18:00 07/08/17 17:59 06/11/17 10:03 Dolutegravir Sodium (Tivicay) 50 mg DAILY ORAL 06/19/17 09:00 07/19/17 08:59 06/21/17 09:20 Emtricitabine/ Tenofovir (Truvada 200/ 300mg) 1 tab DAILY ORAL 06/19/17 11:00 07/19/17 10:59 06/21/17 09:20 Ethambutol HCl (Myambutol) 600 mg DAILY ORAL 06/12/17 14:45 07/12/17 14:44 06/21/17 09:27 Fluoxetine HCl (PROzac) 20 mg DAILY ORAL 05/27/17 09:00 06/26/17 08:59 06/19/17 10:12 Folic Acid (Folate) 1 mg DAILY ORAL 05/27/17 09:00 06/26/17 08:59 06/21/17 09:18 Heparin Sodium (Porcine) (Heparin 5000 units/ml) 5,000 units EVERY 12 HOURS SUBQ 05/23/17 21:00 06/22/17 20:59 06/21/17 09:24 Lactulose (Cephulac) 10 gm THREE TIMES A DAY ORAL 06/08/17 13:00 07/08/17 12:59 06/11/17 10:05 Magnesium Oxide (Mag-Ox 400mg) 500 mg THREE TIMES A DAY ORAL 06/12/17 19:30 07/12/17 19:29 06/21/17 13:37 Multivitamins (Multivitamins) 1 tab DAILY ORAL 05/31/17 09:00 06/30/17 08:59 06/21/17 09:19 Ondansetron HCl (Zofran) 4 mg Q6H PRN IVP Nausea & Vomiting 05/23/17 12:15 06/22/17 12:14 Polyethylene Glycol (Miralax) 17 gm DAILYPRN PRN ORAL Constipation 05/23/17 12:15 06/22/17 12:14 Prednisone (predniSONE) 40 mg DAILY ORAL 06/19/17 10:00 07/19/17 09:59 06/21/17 09:21 Ranitidine HCl (Zantac) 150 mg BEDTIME ORAL 05/26/17 21:00 06/25/17 20:59 06/13/17 20:47 Rifabutin (Mycobutin) 300 mg DAILY ORAL 06/12/17 14:45 07/12/17 14:44 06/21/17 09:21 Sodium Chloride (NaCl) 1 gm THREE TIMES A DAY ORAL 06/21/17 09:00 07/21/17 08:59 06/21/17 13:00 Thiamine HCl (Vitamin B1) 100 mg DAILY ORAL 05/31/17 09:00 06/30/17 08:59 06/21/17 09:19 Trimethoprim/ Sulfamethoxazole (Bactrim-DS) 1 ea DAILY ORAL 06/16/17 09:00 06/23/17 08:59 06/21/17 09:17 [facility]Analy Holley NP Jun 21, 2017 16:30
[2017-06-21 20:00] VITALS: BP 110/62
--- NOTE | 2017-06-21 22:41 | General Progress Note ---
Assessment/Plan Status: unchanged Assessment/Plan ASSESSMENT/PLAN # Leukopenia 2/2 HIV --> unfortunately has refused bone marrow biopsy, have explained him the risks and of potentially missing a diagnosis such as lymphoma --> bone marrow biopsy completed 06/18/17 and preliminary is negative, final results are pending # Anemia 2/2 HIV, watch counts, transfuse if hgb below 7 --> hemoglobin has been >7 -->Low folate level, continue PO folate # Anemia 2/2 folic acid deficiency # HIV with very low CD4 count --> vl is high # AFB + for Mycobacterium avium. To be confirmed with bone marrow bx 06/17/17 --> on abx for disseminated MAC # MSSA PNA # Interstitial lung disease --> may require lung biopsy # acute hypoxemic RF # severe protein calorie malnutrition # diarrhea, better. C. diff negative. GI following # alcohol dependence # depression Subjective Date patient seen: Jun 21, 2017 Constitutional: Denies: no symptoms, chills, diaphoresis, fever, malaise, weakness, other HEENT: Denies: no symptoms, eye pain, blurred vision, tearing, double vision, ear pain, ear discharge, nose pain, nose congestion, throat pain, throat swelling, mouth pain, mouth swelling, other Cardiovascular: Denies: no symptoms, chest pain, edema, irregular heart rate, lightheadedness, palpitations, syncope, other Respiratory: Denies: no symptoms, cough, orthopnea, shortness of breath, SOB with excertion, SOB at rest, sputum, stridor, wheezing, other Gastrointestinal/Abdominal: Denies: no symptoms, abdomen distended, abdominal pain, black stools, tarry stools, blood in stool, constipated, diarrhea, difficulty swallowing, nausea, poor appetite, poor fluid intake, rectal bleeding , vomiting, other Genitourinary: Denies: no symptoms, burning, discharge, frequency, flank pain, hematuria, incontinence, pain, urgency, other Allergies: Coded Allergies: No Known Allergies (Unverified , 05/23/17) Subjective No complaints of pain. No sob. H/H stable. Objective Last 24 Hour Vital Signs Date Time Temp Pulse Resp B/P (MAP) Pulse Ox O2 Delivery O2 Flow Rate FiO2 06/21/17 20:00 97.4 61 18 110/62 100 Nasal Cannula 4.0 06/21/17 16:00 Nasal Cannula 4.0 99 06/21/17 15:45 98.9 74 20 95/66 99 Room Air 06/21/17 12:10 Nasal Cannula 4.0 97 06/21/17 12:00 98.8 81 18 114/68 96 06/21/17 08:00 99.6 79 18 115/70 95 06/21/17 08:00 Venturi Mask 97 06/21/17 04:00 100 Venturi Mask 06/21/17 04:00 98.2 80 20 101/65 100 06/21/17 00:00 97.7 75 20 136/89 100 06/21/17 00:00 100 Venturi Mask Intake and Output 06/20/17 06/21/17 19:00 07:00 Intake Total 1100 ml Output Total 950 ml Balance 1100 ml -950 ml Intake Oral 1100 ml Output Urine Total 950 ml # Voids 4 # Bowel Movements 2 3 Laboratory Tests 06/21/17 05:45: White Blood Count 5.4, Red Blood Count 3.08L, Hemoglobin 9.1L, Hematocrit 27.1L , Mean Corpuscular Volume 88, Mean Corpuscular Hemoglobin 29.5, Mean Corpuscular Hemoglobin Concent 33.4, Red Cell Distribution Width 13.7, Platelet Count 218, Mean Platelet Volume 9.1, Neutrophils (%) (Auto) 82.2H, Lymphocytes ( %) (Auto) 9.0L, Monocytes (%) (Auto) 7.4, Eosinophils (%) (Auto) 0.2, Basophils (%) (Auto) 1.2, Sodium Level 129L, Potassium Level 3.1L, Chloride Level 96L, Carbon Dioxide Level 28, Anion Gap 5, Blood Urea Nitrogen 15, Creatinine 0.7, Estimat Glomerular Filtration Rate > 60, Glucose Level 75, Calcium Level 7.2L Height (Feet): 5 Height (Inches): 10.00 Weight (Pounds): 90 General Appearance: no apparent distress EENT: normal ENT inspection Neck: non-tender, normal alignment Cardiovascular: normal rate, regular rhythm Respiratory/Chest: lungs clear Abdomen: non tender, soft Nikhil Woodward Jun 21, 2017 22:41
[2017-06-22] VITALS: BP 108/66
[2017-06-22 04:00] VITALS: BP 114/79
[2017-06-22 07:52] LABS: HEMATOCRIT 29.2 % (42.0-52.0); HEMOGLOBIN 9.8 G/DL (14.2-18.0); MEAN CORPUSCULAR VOLUME 89 FL (80-99); PLATELET COUNT 202 K/UL (150-450); RED BLOOD COUNT 3.29 M/UL (4.70-6.10); RED CELL DISTRIBUTION WIDTH 13.9 % (11.6-14.8); WHITE BLOOD COUNT 2.9 K/UL (4.8-10.8)
[2017-06-22 08:00] VITALS: BP 102/73
[2017-06-22 08:06] LABS: ANION GAP 6 mmol/L (5-15); BLOOD UREA NITROGEN 15 mg/dL (7-18); CALCIUM 7.5 MG/DL (8.5-10.1); CARBON DIOXIDE 29 MMOL/L (21-32); CHLORIDE 97 MMOL/L (98-107); CREATININE 0.7 MG/DL (0.55-1.30); POTASSIUM 2.9 MMOL/L (3.5-5.1); SODIUM 132 MMOL/L (136-145)
[2017-06-22] MEDS: Lactulose 10gm/15ml UDC ORAL SCH ×3 (09:00→17:34)
[2017-06-22] MEDS: Heparin 5000 units/ml inj SUBQ SCH (09:00)
[2017-06-22] MEDS: Docusate 100mg cap ORAL SCH ×2 (09:00→17:34)
[2017-06-22] MEDS: Azithromycin 600mg Tab ORAL SCH (09:05)
[2017-06-22] MEDS: Sodium Chloride 1gm Tab ORAL SCH ×3 (09:05→17:34)
[2017-06-22] MEDS: Dolutegravir Sodium 50mg tab ORAL SCH (09:05)
[2017-06-22] MEDS: Rifabutin 150mg cap ORAL SCH (09:05)
[2017-06-22] MEDS: Depakote ER 500mg tab ORAL SCH ×2 (09:06→21:00)
[2017-06-22] MEDS: Bactrim-DS 1 tab ORAL SCH (09:07)
[2017-06-22] MEDS: Magnesium Oxide 400mg tab ORAL SCH ×3 (09:07→17:34)
[2017-06-22] MEDS: Thiamine 100mg tab ORAL SCH (09:07)
--- NOTE | 2017-06-22 11:17 | Infectious Diseases Prog Note ---
Assessment/Plan Assessment/Plan Probably Disseminated MAC- MAC isolated for sputum. Typicall isolated MAC infection is seen in immunocompetent patients. Given he is HIV with probably AIDS with a low CD4 as very low lymphocyte counts (CD4 unable to be calculated) and his clinical presentation of wt loss, intermittent fevers, leukopenia/anemia , pulmonary infiltrates are very suggestive of the diagnosis. Diagnosis is confirmed by either isolation of MAC from blood and/or bone marrow. Also possible concomitant PCP given extensive GGO, and possible hypoxia -s/p bone marrow biopsy 06/18 -path: preliminary neg, neg AFB stains, neg granuloma, neg for lymphoma- increased iron storages -bacterial cx neg; fungal and AFB cx p Pneumonia. . Sp Cx : MSSA SP Rx - s/p Bronchoscopy 06/10: friable mucosa, mild mucoid secretions; cx normal [place] -BAL cytology: rare atypical cells. Neg GMS and PCP stain CT of Abd /Bilateral pulmonary alveolar infiltrates consistent with pneumonia.- patient not hypoxic, not febrile- lower suspicion PCP; PCP DFA neg AFBx 3 : Neg ( 3rd from 05/26 not in EMR ) now AFB Cx 06/16 05/25 : +MAC; MTB PCR : Neg T Spot : neg Crytpo and blastomycosis: JOHANNA Neg ; RF + histo ab, Cocci ab : neg CT: Extensive interstitial and airspace parenchymal disease, and honeycomb appearance of much of the lower lobe and right middle lobe interstitial component, HIV/AIDS: first test negative repeat, repeat +; VL 973,150; CD4 unable to be calculated due to low absolute lymphocyte count -repeat CD4 p -Hep a immune -Hep b not immune, neg hep C -RPR neg -GC/CL neg - HLA B27 + Chronic diarrhea resolved, now constipated Stool for ova and parasite ( ? sent ) stool Cx : neg ? pancreatic insufficiency due to chronic alcohol abuse. also possibly due to disseminated MAC Elevated ESR , CRP and RF JOHANNA : neg Leukopenia/anemia Anemia and leukopenia PLAN: -Continue tx for possible disseminated MAC with Azithromycin 600mg qd, Rifabutin 300mg qd and Ethambutol 600mg qd #11 -f/u AFB bcx (never collected; will reorder) -for bone marrow biopsy final results and cx - Continue Truvada and Dolutegravir ( started 06/19 ) - f/u HIV genotype -f/u BAL cx (fungal, AFB), bone marrow bx path and cx -f/u repeat CD4 as lymphocyte count improving -continue Bactrim DS 1 tab qd for PCP ppx - complex case manager consulted to start working on HIV clinic to continue HIV and MAC to be set up prior to discharge; risk of readmission if not follow up with a HIV provider upon discharge. 06/15 Bactrim high dose #4 06/05 SP Ancef d# 10 / 10 05/30 SP Zithromax d# 5 / 5 06/01 SP ( refusing) Flagyl d# 46 05/27 SP vancomycin, cefepime d# 5, Monitor CBC/CMP f/u Fungal and AFB blood Cx Discussed with RN Subjective Allergies: Coded Allergies: No Known Allergies (Unverified , 05/23/17) Subjective afebrile Objective Vital Signs Last 24 Hour Vital Signs Date Time Temp Pulse Resp B/P (MAP) Pulse Ox O2 Delivery O2 Flow Rate FiO2 06/22/17 08:00 97.5 58 20 102/73 100 06/22/17 04:00 97.8 72 18 114/79 99 Nasal Cannula 4.0 06/22/17 02:11 Venturi Mask 8.0 40 06/22/17 02:11 97 Venturi Mask 40 06/22/17 00:00 97.6 68 18 108/66 100 Nasal Cannula 4.0 06/21/17 20:00 97.4 61 18 110/62 100 Nasal Cannula 4.0 06/21/17 16:00 Nasal Cannula 4.0 99 06/21/17 15:45 98.9 74 20 95/66 99 Room Air 06/21/17 12:10 Nasal Cannula 4.0 97 06/21/17 12:00 98.8 81 18 114/68 96 Height (Feet): 5 Height (Inches): 10.00 Weight (Pounds): 90 Objective General Appearance: no acute distress, cachetic HEENT: normocephalic, atraumatic, mucous membranes moist Respiratory/Chest: CTA x2 Cardiovascular: normal peripheral pulses, regular rhythm, regularly irregular Abdomen: normal bowel sounds, soft, non tender, no organomegaly, non distended Extremities: no cyanosis, no clubbing, no edema Laboratory Tests Test 06/22/17 05:50 White Blood Count 2.9 K/UL (4.8-10.8) L Red Blood Count 3.29 M/UL (4.70-6.10) L Hemoglobin 9.8 G/DL (14.2-18.0) L Hematocrit 29.2 % (42.0-52.0) L Mean Corpuscular Volume 89 FL (80-99) Mean Corpuscular Hemoglobin 29.7 PG (27.0-31.0) Mean Corpuscular Hemoglobin Concent 33.5 G/DL (32.0-36.0) Red Cell Distribution Width 13.9 % (11.6-14.8) Platelet Count 202 K/UL (150-450) Mean Platelet Volume 8.1 FL (6.5-10.1) Neutrophils (%) (Auto) % (45.0-75.0) Lymphocytes (%) (Auto) % (20.0-45.0) Monocytes (%) (Auto) % (1.0-10.0) Eosinophils (%) (Auto) % (0.0-3.0) Basophils (%) (Auto) % (0.0-2.0) Differential Total Cells Counted 100 Neutrophils % (Manual) 73 % (45-75) Lymphocytes % (Manual) 15 % (20-45) L Monocytes % (Manual) 10 % (1-10) Eosinophils % (Manual) 1 % (0-3) Basophils % (Manual) 1 % (0-2) Band Neutrophils 0 % (0-8) Platelet Estimate Adequate Platelet Morphology Normal Hypochromasia 2+ Anisocytosis 1+ Sodium Level 132 MMOL/L (136-145) L Potassium Level 2.9 MMOL/L (3.5-5.1) L Chloride Level 97 MMOL/L (98-107) L Carbon Dioxide Level 29 MMOL/L (21-32) Anion Gap 6 mmol/L (5-15) Blood Urea Nitrogen 15 mg/dL (7-18) Creatinine 0.7 MG/DL (0.55-1.30) Estimat Glomerular Filtration Rate > 60 mL/min (>60) Glucose Level 112 MG/DL (74-106) H Calcium Level 7.5 MG/DL (8.5-10.1) L Current Medications Medications (Trade) Dose Ordered Sig/Anna Route PRN Reason Start Time Stop Time Status Last Admin Dose Admin Acetaminophen (Tylenol) 650 mg Q4H PRN ORAL T>100.5 05/23/17 12:15 06/22/17 12:14 06/21/17 06:15 Albuterol/ Ipratropium (Albuterol/ Ipratropium) 3 ml Q4H PRN HHN Shortness of Breath 06/19/17 09:30 06/24/17 09:29 Albuterol/ Ipratropium (Albuterol/ Ipratropium) 3 ml Q6HRT HHN 06/11/17 13:00 06/16/17 23:59 06/15/17 23:54 Azithromycin (Zithromax) 600 mg DAILY ORAL 06/20/17 13:00 06/22/17 09:05 Dextrose (Dextrose 50%) STAT PRN IV Hypoglycemia 05/23/17 12:15 06/22/17 12:14 Divalproex Sodium (Depakote ER) 1,000 mg EVERY 12 HOURS ORAL 05/29/17 09:00 06/28/17 08:59 06/22/17 09:06 Docusate Sodium (Colace) 100 mg TWICE A DAY ORAL 06/08/17 18:00 07/08/17 17:59 06/11/17 10:03 Dolutegravir Sodium (Tivicay) 50 mg DAILY ORAL 06/19/17 09:00 07/19/17 08:59 06/22/17 09:05 Emtricitabine/ Tenofovir (Truvada 200/ 300mg) 1 tab DAILY ORAL 06/19/17 11:00 07/19/17 10:59 06/22/17 09:09 Ethambutol HCl (Myambutol) 600 mg DAILY ORAL 06/12/17 14:45 07/12/17 14:44 06/22/17 09:07 Fluoxetine HCl (PROzac) 20 mg DAILY ORAL 05/27/17 09:00 06/26/17 08:59 06/22/17 09:05 Folic Acid (Folate) 1 mg DAILY ORAL 05/27/17 09:00 06/26/17 08:59 06/22/17 09:06 Heparin Sodium (Porcine) (Heparin 5000 units/ml) 5,000 units EVERY 12 HOURS SUBQ 05/23/17 21:00 06/22/17 20:59 06/21/17 21:10 Lactulose (Cephulac) 10 gm THREE TIMES A DAY ORAL 06/08/17 13:00 07/08/17 12:59 06/11/17 10:05 Magnesium Oxide (Mag-Ox 400mg) 500 mg THREE TIMES A DAY ORAL 06/12/17 19:30 07/12/17 19:29 06/22/17 09:07 Multivitamins (Multivitamins) 1 tab DAILY ORAL 05/31/17 09:00 06/30/17 08:59 06/22/17 09:05 Ondansetron HCl (Zofran) 4 mg Q6H PRN IVP Nausea & Vomiting 05/23/17 12:15 06/22/17 12:14 Polyethylene Glycol (Miralax) 17 gm DAILYPRN PRN ORAL Constipation 05/23/17 12:15 06/22/17 12:14 Prednisone (predniSONE) 40 mg DAILY ORAL 06/19/17 10:00 07/19/17 09:59 06/22/17 09:07 Ranitidine HCl (Zantac) 150 mg BEDTIME ORAL 05/26/17 21:00 06/25/17 20:59 06/13/17 20:47 Rifabutin (Mycobutin) 300 mg DAILY ORAL 06/12/17 14:45 07/12/17 14:44 06/22/17 09:05 Sodium Chloride (NaCl) 1 gm THREE TIMES A DAY ORAL 06/21/17 09:00 07/21/17 08:59 06/22/17 09:05 Thiamine HCl (Vitamin B1) 100 mg DAILY ORAL 05/31/17 09:00 06/30/17 08:59 06/22/17 09:07 Trimethoprim/ Sulfamethoxazole (Bactrim-DS) 1 ea DAILY ORAL 06/16/17 09:00 06/23/17 08:59 06/22/17 09:07 Haydee Tucker M.D. Jun 22, 2017 11:17
[2017-06-22 12:00] VITALS: BP 110/68
--- NOTE | 2017-06-22 12:25 | GI Progress Note ---
Assessment/Plan Problems: (1) Generalized weakness ICD Codes: R53.1 - Weakness SNOMED: 92240173 (2) Anemia ICD Codes: D64.9 - Anemia, unspecified SNOMED: 287806435 (3) Severe protein-calorie malnutrition ICD Codes: E43 - Unspecified severe protein-calorie malnutrition SNOMED: 720014509 (4) Atypical pneumonia ICD Codes: J18.9 - Pneumonia, unspecified organism SNOMED: 332977307 (5) Protein calorie malnutrition ICD Codes: E46 - Unspecified protein-calorie malnutrition SNOMED: 785268186 Qualifiers: Qualified Codes: E44.0 - Moderate protein-calorie malnutrition (6) Diarrhea ICD Codes: R19.7 - Diarrhea, unspecified SNOMED: 69364849 Qualifiers: Qualified Codes: R19.7 - Diarrhea, unspecified Status: unchanged Status Narrative Discussed with Dr. Gamez. Assessment/Plan CT chest reviewed. cdiff negative iron levels unremarkable HIV positive airborne r/o TB KUB r/o chronic pancreatitis >> unremarkable OB stool r/o GI bleed >> negative Tissue Transglutaminase IgA r/o celiac >> negative Failure to thrive anorexia anemia - needs repeat H&H PNA MAC infection Diarrhea vs constipation fu ID, oncology recs cont bowel regime monitor H&H, prn transfusions bowel regime ppi folate PO H2B fu labs Subjective Subjective participating with PT Objective Last 24 Hour Vital Signs Date Time Temp Pulse Resp B/P (MAP) Pulse Ox O2 Delivery O2 Flow Rate FiO2 06/22/17 08:00 97.5 58 20 102/73 100 06/22/17 04:00 97.8 72 18 114/79 99 Nasal Cannula 4.0 06/22/17 02:11 Venturi Mask 8.0 40 06/22/17 02:11 97 Venturi Mask 40 06/22/17 00:00 97.6 68 18 108/66 100 Nasal Cannula 4.0 06/21/17 20:00 97.4 61 18 110/62 100 Nasal Cannula 4.0 06/21/17 16:00 Nasal Cannula 4.0 99 06/21/17 15:45 98.9 74 20 95/66 99 Room Air Intake and Output 06/21/17 06/22/17 19:00 07:00 Intake Total 2080 ml Output Total 380 ml 850 ml Balance 1700 ml -850 ml Intake Oral 2080 ml Output Urine Total 380 ml 850 ml # Voids 5 3 # Bowel Movements 4 1 Laboratory Tests Test 06/22/17 05:50 White Blood Count 2.9 K/UL (4.8-10.8) L Red Blood Count 3.29 M/UL (4.70-6.10) L Hemoglobin 9.8 G/DL (14.2-18.0) L Hematocrit 29.2 % (42.0-52.0) L Mean Corpuscular Volume 89 FL (80-99) Mean Corpuscular Hemoglobin 29.7 PG (27.0-31.0) Mean Corpuscular Hemoglobin Concent 33.5 G/DL (32.0-36.0) Red Cell Distribution Width 13.9 % (11.6-14.8) Platelet Count 202 K/UL (150-450) Mean Platelet Volume 8.1 FL (6.5-10.1) Neutrophils (%) (Auto) % (45.0-75.0) Lymphocytes (%) (Auto) % (20.0-45.0) Monocytes (%) (Auto) % (1.0-10.0) Eosinophils (%) (Auto) % (0.0-3.0) Basophils (%) (Auto) % (0.0-2.0) Differential Total Cells Counted 100 Neutrophils % (Manual) 73 % (45-75) Lymphocytes % (Manual) 15 % (20-45) L Monocytes % (Manual) 10 % (1-10) Eosinophils % (Manual) 1 % (0-3) Basophils % (Manual) 1 % (0-2) Band Neutrophils 0 % (0-8) Platelet Estimate Adequate Platelet Morphology Normal Hypochromasia 2+ Anisocytosis 1+ Sodium Level 132 MMOL/L (136-145) L Potassium Level 2.9 MMOL/L (3.5-5.1) L Chloride Level 97 MMOL/L (98-107) L Carbon Dioxide Level 29 MMOL/L (21-32) Anion Gap 6 mmol/L (5-15) Blood Urea Nitrogen 15 mg/dL (7-18) Creatinine 0.7 MG/DL (0.55-1.30) Estimat Glomerular Filtration Rate > 60 mL/min (>60) Glucose Level 112 MG/DL (74-106) H Calcium Level 7.5 MG/DL (8.5-10.1) L Height (Feet): 5 Height (Inches): 10.00 Weight (Pounds): 90 General Appearance: WD/WN, no apparent distress, alert, thin Cardiovascular: normal rate Respiratory/Chest: normal breath sounds, no respiratory distress Abdominal Exam: normal bowel sounds, non tender, soft Extremities: normal range of motion, non-tender Alyssa Felix N.P. Jun 22, 2017 12:25
[2017-06-22 16:21] VITALS: BP 109/65
[2017-06-22 20:00] VITALS: BP 115/70
--- NOTE | 2017-06-22 21:58 | General Progress Note ---
Assessment/Plan Status: unchanged Assessment/Plan ASSESSMENT/PLAN # Leukopenia 2/2 HIV --> unfortunately has refused bone marrow biopsy, have explained him the risks and of potentially missing a diagnosis such as lymphoma --> bone marrow biopsy completed 06/18/17 and preliminary is negative, final results are pending # Anemia 2/2 HIV, watch counts, transfuse if hgb below 7 --> hemoglobin has been >7 -->Low folate level, continue PO folate # Anemia 2/2 folic acid deficiency # HIV with very low CD4 count --> vl is high # AFB + for Mycobacterium avium. To be confirmed with bone marrow bx 06/17/17 --> on abx for disseminated MAC # MSSA PNA # Interstitial lung disease --> may require lung biopsy # acute hypoxemic RF # severe protein calorie malnutrition # diarrhea, better. C. diff negative. GI following # alcohol dependence # depression Subjective Date patient seen: Jun 22, 2017 Constitutional: Denies: no symptoms, chills, diaphoresis, fever, malaise, weakness, other HEENT: Denies: no symptoms, eye pain, blurred vision, tearing, double vision, ear pain, ear discharge, nose pain, nose congestion, throat pain, throat swelling, mouth pain, mouth swelling, other Cardiovascular: Denies: no symptoms, chest pain, edema, irregular heart rate, lightheadedness, palpitations, syncope, other Respiratory: Denies: no symptoms, cough, orthopnea, shortness of breath, SOB with excertion, SOB at rest, sputum, stridor, wheezing, other Gastrointestinal/Abdominal: Denies: no symptoms, abdomen distended, abdominal pain, black stools, tarry stools, blood in stool, constipated, diarrhea, difficulty swallowing, nausea, poor appetite, poor fluid intake, rectal bleeding , vomiting, other Genitourinary: Denies: no symptoms, burning, discharge, frequency, flank pain, hematuria, incontinence, pain, urgency, other Neurologic/Psychiatric: Denies: no symptoms, anxiety, depressed, emotional problems, headache, numbness, paresthesia, pre-existing deficit, seizure, tingling, tremors, weakness, other Allergies: Coded Allergies: No Known Allergies (Unverified , 05/23/17) Subjective No new events. Anemia stable. Objective Last 24 Hour Vital Signs Date Time Temp Pulse Resp B/P (MAP) Pulse Ox O2 Delivery O2 Flow Rate FiO2 06/22/17 16:21 97.8 69 20 109/65 99 06/22/17 16:15 Room Air 21 06/22/17 16:15 98 Room Air 21 06/22/17 12:00 97.7 61 20 110/68 100 06/22/17 08:00 97.5 58 20 102/73 100 06/22/17 04:00 97.8 72 18 114/79 99 Nasal Cannula 4.0 06/22/17 02:11 Venturi Mask 8.0 40 06/22/17 02:11 97 Venturi Mask 40 06/22/17 00:00 97.6 68 18 108/66 100 Nasal Cannula 4.0 Intake and Output 06/21/17 06/22/17 19:00 07:00 Intake Total 2080 ml Output Total 380 ml 850 ml Balance 1700 ml -850 ml Intake Oral 2080 ml Output Urine Total 380 ml 850 ml # Voids 5 3 # Bowel Movements 4 1 Laboratory Tests 06/22/17 05:50: White Blood Count 2.9L, Red Blood Count 3.29L, Hemoglobin 9.8L, Hematocrit 29.2L , Mean Corpuscular Volume 89, Mean Corpuscular Hemoglobin 29.7, Mean Corpuscular Hemoglobin Concent 33.5, Red Cell Distribution Width 13.9, Platelet Count 202, Mean Platelet Volume 8.1, Neutrophils (%) (Auto) , Lymphocytes (%) ( Auto) , Monocytes (%) (Auto) , Eosinophils (%) (Auto) , Basophils (%) (Auto) , Differential Total Cells Counted 100, Neutrophils % (Manual) 73, Lymphocytes % ( Manual) 15L, Monocytes % (Manual) 10, Eosinophils % (Manual) 1, Basophils % ( Manual) 1, Band Neutrophils 0, Platelet Estimate Adequate, Platelet Morphology Normal, Hypochromasia 2+, Anisocytosis 1+, Sodium Level 132L, Potassium Level 2.9L, Chloride Level 97L, Carbon Dioxide Level 29, Anion Gap 6, Blood Urea Nitrogen 15, Creatinine 0.7, Estimat Glomerular Filtration Rate > 60, Glucose Level 112H, Calcium Level 7.5L Height (Feet): 5 Height (Inches): 10.00 Weight (Pounds): 90 General Appearance: no apparent distress EENT: normal ENT inspection Cardiovascular: normal rate, regular rhythm Respiratory/Chest: lungs clear, normal breath sounds Abdomen: non tender, soft, no organomegaly Extremities: normal range of motion Nikhil Woodward Jun 22, 2017 21:58
--- NOTE | 2017-06-22 22:57 | Pulmonology Progress Note ---
Assessment/Plan Problems: (1) Atypical pneumonia (2) Severe protein-calorie malnutrition (3) Interstitial lung disease (4) Diarrhea Assessment/Plan continue MAC treatment pathology pending dc planning soon pt/ot evaluation again will need snif placement Subjective ROS Limited/Unobtainable: No Allergies: Coded Allergies: No Known Allergies (Unverified , 05/23/17) Objective Last 24 Hour Vital Signs Date Time Temp Pulse Resp B/P (MAP) Pulse Ox O2 Delivery O2 Flow Rate FiO2 06/22/17 16:21 97.8 69 20 109/65 99 06/22/17 16:15 Room Air 21 06/22/17 16:15 98 Room Air 21 06/22/17 12:00 97.7 61 20 110/68 100 06/22/17 08:00 97.5 58 20 102/73 100 06/22/17 04:00 97.8 72 18 114/79 99 Nasal Cannula 4.0 06/22/17 02:11 Venturi Mask 8.0 40 06/22/17 02:11 97 Venturi Mask 40 06/22/17 00:00 97.6 68 18 108/66 100 Nasal Cannula 4.0 Intake and Output 06/21/17 06/22/17 19:00 07:00 Intake Total 2080 ml Output Total 380 ml 850 ml Balance 1700 ml -850 ml Intake Oral 2080 ml Output Urine Total 380 ml 850 ml # Voids 5 3 # Bowel Movements 4 1 Objective General Appearance: no acute distress HEENT: normocephalic, atraumatic Respiratory/Chest: lungs clear, no respiratory distress, no accessory muscle use Cardiovascular: normal rate, no JVD, CL-femoral intact Abdomen: normal bowel sounds, soft, non tender Extremities: no edema Neurologic/Psychiatric: alert, responsive Musculoskeletal: normal muscle bulk Laboratory Tests 06/22/17 05:50: White Blood Count 2.9L, Red Blood Count 3.29L, Hemoglobin 9.8L, Hematocrit 29.2L , Mean Corpuscular Volume 89, Mean Corpuscular Hemoglobin 29.7, Mean Corpuscular Hemoglobin Concent 33.5, Red Cell Distribution Width 13.9, Platelet Count 202, Mean Platelet Volume 8.1, Neutrophils (%) (Auto) , Lymphocytes (%) ( Auto) , Monocytes (%) (Auto) , Eosinophils (%) (Auto) , Basophils (%) (Auto) , Differential Total Cells Counted 100, Neutrophils % (Manual) 73, Lymphocytes % ( Manual) 15L, Monocytes % (Manual) 10, Eosinophils % (Manual) 1, Basophils % ( Manual) 1, Band Neutrophils 0, Platelet Estimate Adequate, Platelet Morphology Normal, Hypochromasia 2+, Anisocytosis 1+, Sodium Level 132L, Potassium Level 2.9L, Chloride Level 97L, Carbon Dioxide Level 29, Anion Gap 6, Blood Urea Nitrogen 15, Creatinine 0.7, Estimat Glomerular Filtration Rate > 60, Glucose Level 112H, Calcium Level 7.5L Current Medications Medications (Trade) Dose Ordered Sig/Anna Route PRN Reason Start Time Stop Time Status Last Admin Dose Admin Albuterol/ Ipratropium (Albuterol/ Ipratropium) 3 ml Q4H PRN N Shortness of Breath 06/19/17 09:30 06/24/17 09:29 Albuterol/ Ipratropium (Albuterol/ Ipratropium) 3 ml Q6HRT HHN 06/11/17 13:00 06/16/17 23:59 06/15/17 23:54 Azithromycin (Zithromax) 600 mg DAILY ORAL 06/20/17 13:00 06/22/17 09:05 Divalproex Sodium (Depakote ER) 1,000 mg EVERY 12 HOURS ORAL 05/29/17 09:00 06/28/17 08:59 06/22/17 09:06 Docusate Sodium (Colace) 100 mg TWICE A DAY ORAL 06/08/17 18:00 07/08/17 17:59 06/11/17 10:03 Dolutegravir Sodium (Tivicay) 50 mg DAILY ORAL 06/19/17 09:00 07/19/17 08:59 06/22/17 09:05 Emtricitabine/ Tenofovir (Truvada 200/ 300mg) 1 tab DAILY ORAL 06/19/17 11:00 07/19/17 10:59 06/22/17 09:09 Ethambutol HCl (Myambutol) 600 mg DAILY ORAL 06/12/17 14:45 07/12/17 14:44 06/22/17 09:07 Fluoxetine HCl (PROzac) 20 mg DAILY ORAL 05/27/17 09:00 06/26/17 08:59 06/22/17 09:05 Folic Acid (Folate) 1 mg DAILY ORAL 05/27/17 09:00 06/26/17 08:59 06/22/17 09:06 Lactulose (Cephulac) 10 gm THREE TIMES A DAY ORAL 06/08/17 13:00 07/08/17 12:59 06/11/17 10:05 Magnesium Oxide (Mag-Ox 400mg) 500 mg THREE TIMES A DAY ORAL 06/12/17 19:30 07/12/17 19:29 06/22/17 09:07 Multivitamins (Multivitamins) 1 tab DAILY ORAL 05/31/17 09:00 06/30/17 08:59 06/22/17 09:05 Prednisone (predniSONE) 40 mg DAILY ORAL 06/19/17 10:00 07/19/17 09:59 06/22/17 09:07 Ranitidine HCl (Zantac) 150 mg BEDTIME ORAL 05/26/17 21:00 06/25/17 20:59 06/13/17 20:47 Rifabutin (Mycobutin) 300 mg DAILY ORAL 06/12/17 14:45 07/12/17 14:44 06/22/17 09:05 Sodium Chloride (NaCl) 1 gm THREE TIMES A DAY ORAL 06/21/17 09:00 07/21/17 08:59 06/22/17 09:05 Thiamine HCl (Vitamin B1) 100 mg DAILY ORAL 05/31/17 09:00 06/30/17 08:59 06/22/17 09:07 Trimethoprim/ Sulfamethoxazole (Bactrim-DS) 1 ea DAILY ORAL 06/16/17 09:00 06/23/17 08:59 06/22/17 09:07 TAMMIE MARY Jun 22, 2017 22:57
--- NOTE | 2017-06-22 23:56 | Cardiology Progress Note ---
Assessment/Plan Assessment/Plan 1. Sinus tachycardia due to sepsis, hypovolemia or hypoxemia. Normal LV systolic function with LVEF at 50%. 2. Small pericardial effusion. 3. Hypotension, resolved due to sepsis. 4. Moderate pulmonary HTN could be due to HIV disease. Subjective Subjective No cardiac events is reported. Objective Last 24 Hour Vital Signs Date Time Temp Pulse Resp B/P (MAP) Pulse Ox O2 Delivery O2 Flow Rate FiO2 06/22/17 20:00 97.5 54 20 115/70 100 06/22/17 16:21 97.8 69 20 109/65 99 06/22/17 16:15 Room Air 21 06/22/17 16:15 98 Room Air 21 06/22/17 12:00 97.7 61 20 110/68 100 06/22/17 08:00 97.5 58 20 102/73 100 06/22/17 04:00 97.8 72 18 114/79 99 Nasal Cannula 4.0 06/22/17 02:11 Venturi Mask 8.0 40 06/22/17 02:11 97 Venturi Mask 40 06/22/17 00:00 97.6 68 18 108/66 100 Nasal Cannula 4.0 Intake and Output 06/21/17 06/22/17 19:00 07:00 Intake Total 2080 ml Output Total 380 ml 850 ml Balance 1700 ml -850 ml Intake Oral 2080 ml Output Urine Total 380 ml 850 ml # Voids 5 3 # Bowel Movements 4 1 2D Echo: LVEF 50%, Mild AR, Grade II pseudo-normal LV physiology, RVSP 19 mmHg Laboratory Tests Test 06/22/17 05:50 White Blood Count 2.9 K/UL (4.8-10.8) L Red Blood Count 3.29 M/UL (4.70-6.10) L Hemoglobin 9.8 G/DL (14.2-18.0) L Hematocrit 29.2 % (42.0-52.0) L Mean Corpuscular Volume 89 FL (80-99) Mean Corpuscular Hemoglobin 29.7 PG (27.0-31.0) Mean Corpuscular Hemoglobin Concent 33.5 G/DL (32.0-36.0) Red Cell Distribution Width 13.9 % (11.6-14.8) Platelet Count 202 K/UL (150-450) Mean Platelet Volume 8.1 FL (6.5-10.1) Neutrophils (%) (Auto) % (45.0-75.0) Lymphocytes (%) (Auto) % (20.0-45.0) Monocytes (%) (Auto) % (1.0-10.0) Eosinophils (%) (Auto) % (0.0-3.0) Basophils (%) (Auto) % (0.0-2.0) Differential Total Cells Counted 100 Neutrophils % (Manual) 73 % (45-75) Lymphocytes % (Manual) 15 % (20-45) L Monocytes % (Manual) 10 % (1-10) Eosinophils % (Manual) 1 % (0-3) Basophils % (Manual) 1 % (0-2) Band Neutrophils 0 % (0-8) Platelet Estimate Adequate Platelet Morphology Normal Hypochromasia 2+ Anisocytosis 1+ Sodium Level 132 MMOL/L (136-145) L Potassium Level 2.9 MMOL/L (3.5-5.1) L Chloride Level 97 MMOL/L (98-107) L Carbon Dioxide Level 29 MMOL/L (21-32) Anion Gap 6 mmol/L (5-15) Blood Urea Nitrogen 15 mg/dL (7-18) Creatinine 0.7 MG/DL (0.55-1.30) Estimat Glomerular Filtration Rate > 60 mL/min (>60) Glucose Level 112 MG/DL (74-106) H Calcium Level 7.5 MG/DL (8.5-10.1) L Objective GENERAL: No acute respiratory distress HEENT: Atraumatic, normocephalic, PERRLA, EOMI. NECK: JVP < 5 cm, no carotid bruit. LUNGS: Decreased breath sounds. CARDIOVASCULAR: Regular rate rhythm, tachycardic, normal S1S2, no murmurs, gallops or rubs. ABDOMEN: Soft, nontender, and nondistended. EXTREMITIES: 1+ B/L edema. VIET SCHROEDER Jun 22, 2017 23:56
[2017-06-23] VITALS (7 sets, daily range): BP systolic 100–119; BP diastolic 52–88
[2017-06-23 07:43] LABS: ALANINE AMINOTRANSFERASE 33 U/L (12-78); ALBUMIN 1.5 G/DL (3.4-5.0); ALBUMIN/GLOBULIN RATIO 0.2 (1.0-2.7); ALKALINE PHOSPHATASE 108 U/L (46-116); ANION GAP 5 mmol/L (5-15); ASPARTATE AMINO TRANSFERASE 20 U/L (15-37); BILIRUBIN,TOTAL 0.2 MG/DL (0.2-1.0); BLOOD UREA NITROGEN 16 mg/dL (7-18); CALCIUM 7.8 MG/DL (8.5-10.1); CARBON DIOXIDE 28 MMOL/L (21-32); CHLORIDE 101 MMOL/L (98-107); CREATININE 0.7 MG/DL (0.55-1.30); PHOSPHORUS 2.4 MG/DL (2.5-4.9); POTASSIUM 3.6 MMOL/L (3.5-5.1); SODIUM 134 MMOL/L (136-145)
[2017-06-23 07:50] LABS: HEMATOCRIT 29.3 % (42.0-52.0); HEMOGLOBIN 9.8 G/DL (14.2-18.0); MEAN CORPUSCULAR VOLUME 89 FL (80-99); PLATELET COUNT 235 K/UL (150-450); RED BLOOD COUNT 3.31 M/UL (4.70-6.10); RED CELL DISTRIBUTION WIDTH 14.3 % (11.6-14.8); WHITE BLOOD COUNT 2.5 K/UL (4.8-10.8)
[2017-06-23] MEDS: Docusate 100mg cap ORAL SCH ×2 (09:00→17:07)
[2017-06-23] MEDS: Lactulose 10gm/15ml UDC ORAL SCH ×3 (09:00→17:07)
[2017-06-23] MEDS: Magnesium Oxide 400mg tab ORAL SCH ×3 (09:00→17:07)
[2017-06-23] MEDS: Heparin 5000 units/ml inj SUBQ SCH ×2 (09:00→20:10)
[2017-06-23] MEDS: Azithromycin 600mg Tab ORAL SCH (10:05)
[2017-06-23] MEDS: Rifabutin 150mg cap ORAL SCH (10:05)
[2017-06-23] MEDS: Dolutegravir Sodium 50mg tab ORAL SCH (10:05)
[2017-06-23] MEDS: Sodium Chloride 1gm Tab ORAL SCH ×3 (10:06→17:07)
[2017-06-23] MEDS: Depakote ER 500mg tab ORAL SCH ×2 (10:06→20:18)
[2017-06-23] MEDS: Thiamine 100mg tab ORAL SCH (10:07)
[2017-06-23] MEDS: Bactrim-DS 1 tab ORAL SCH (10:07)
--- NOTE | 2017-06-23 12:06 | Infectious Diseases Prog Note ---
Assessment/Plan Assessment/Plan Probably Disseminated MAC- MAC isolated for sputum. Typically isolated pulmonary MAC infection is seen in immunocompetent patients. Given he is HIV with probably AIDS with a low CD4 as very low lymphocyte counts (CD4 unable to be calculated) and his clinical presentation of wt loss, intermittent fevers, leukopenia/anemia, pulmonary infiltrates are very suggestive of the diagnosis. Diagnosis is confirmed by either isolation of MAC from blood and/or bone marrow. So far bone marrow biopsy neg for MAC- however given his clinical presentation, MAC isolated from lungs, HIV/AIDS status will treat for disseminated MAC; await final AFB cx from blood and bone marrow biopsy -s/p bone marrow biopsy 06/18 -path: preliminary neg, neg AFB stains, neg granuloma, neg for lymphoma- increased iron storages -bacterial cx neg; fungal and AFB cx p Pneumonia. . Sp Cx : MSSA SP Rx - s/p Bronchoscopy 06/10: friable mucosa, mild mucoid secretions; cx normal [place] -BAL cytology: rare atypical cells. Neg GMS and PCP stain CT of Abd /Bilateral pulmonary alveolar infiltrates consistent with pneumonia.- patient not hypoxic, not febrile- lower suspicion PCP; PCP DFA neg AFBx 3 : Neg ( 3rd from 05/26 not in EMR ) now AFB Cx 06/16 05/25 : +MAC; MTB PCR : Neg T Spot : neg Crytpo and blastomycosis: JOHANNA Neg ; RF + histo ab, Cocci ab : neg CT: Extensive interstitial and airspace parenchymal disease, and honeycomb appearance of much of the lower lobe and right middle lobe interstitial component, HIV/AIDS: first test negative repeat, repeat +; VL 973,150; CD4 unable to be calculated due to low absolute lymphocyte count -repeat CD4 p -HIV genotype: no resistance identified on RT or PI -Hep a immune -Hep b not immune, neg hep C -RPR neg -GC/CL neg - HLA B27 + Chronic diarrhea resolved, now constipated Stool for ova and parasite ( ? sent ) stool Cx : neg ? pancreatic insufficiency due to chronic alcohol abuse. also possibly due to disseminated MAC Elevated ESR , CRP and RF JOHANNA : neg Leukopenia/anemia Anemia and leukopenia PLAN: -Continue tx for possible disseminated MAC with Azithromycin 600mg qd, Rifabutin 300mg qd and Ethambutol 600mg qd #12 -f/u AFB bcx (never collected; reordered 06/22) -for bone marrow biopsy final results and cx -review drug-drug interactions with any new meds - Continue Truvada and Dolutegravir ( started 06/19 ) -f/u BAL cx (fungal, AFB), bone marrow bx path and cx -f/u repeat CD4 as lymphocyte count improving -continue Bactrim DS 1 tab qd for PCP ppx - major case detective consulted to start working on HIV clinic to continue HIV and MAC to be set up prior to discharge; risk of readmission if not follow up with a HIV provider upon discharge. -pending discharge to [facility] 06/15 Bactrim high dose #4 06/05 SP Ancef d# 05/30 SP Zithromax d# 5 / 5 06/01 SP ( refusing) Flagyl d# 46 05/27 SP vancomycin, cefepime d# 5, Monitor CBC/CMP f/u Fungal and AFB blood Cx Discussed with RN Subjective Allergies: Coded Allergies: No Known Allergies (Unverified , 05/23/17) Subjective afebrile tolerating HIV and MAC tx Objective Vital Signs Last 24 Hour Vital Signs Date Time Temp Pulse Resp B/P (MAP) Pulse Ox O2 Delivery O2 Flow Rate FiO2 06/23/17 08:00 98.0 59 18 106/52 100 06/23/17 04:00 97.4 60 20 110/73 100 06/23/17 00:00 97.7 67 20 100/55 96 06/22/17 20:00 97.5 54 20 115/70 100 06/22/17 16:21 97.8 69 20 109/65 99 06/22/17 16:15 Room Air 21 06/22/17 16:15 98 Room Air 21 Height (Feet): 5 Height (Inches): 10.00 Weight (Pounds): 90 Objective General Appearance: no acute distress, cachetic HEENT: normocephalic, atraumatic, mucous membranes moist Respiratory/Chest: CTA x2 Cardiovascular: normal peripheral pulses, regular rhythm, regularly irregular Abdomen: normal bowel sounds, soft, non tender, no organomegaly, non distended Extremities: no cyanosis, no clubbing, no edema Laboratory Tests Test 06/23/17 06:45 White Blood Count 2.5 K/UL (4.8-10.8) L Red Blood Count 3.31 M/UL (4.70-6.10) L Hemoglobin 9.8 G/DL (14.2-18.0) L Hematocrit 29.3 % (42.0-52.0) L Mean Corpuscular Volume 89 FL (80-99) Mean Corpuscular Hemoglobin 29.5 PG (27.0-31.0) Mean Corpuscular Hemoglobin Concent 33.3 G/DL (32.0-36.0) Red Cell Distribution Width 14.3 % (11.6-14.8) Platelet Count 235 K/UL (150-450) Mean Platelet Volume 7.8 FL (6.5-10.1) Neutrophils (%) (Auto) % (45.0-75.0) Lymphocytes (%) (Auto) % (20.0-45.0) Monocytes (%) (Auto) % (1.0-10.0) Eosinophils (%) (Auto) % (0.0-3.0) Basophils (%) (Auto) % (0.0-2.0) Differential Total Cells Counted 100 Neutrophils % (Manual) 63 % (45-75) Lymphocytes % (Manual) 21 % (20-45) Monocytes % (Manual) 14 % (1-10) H Eosinophils % (Manual) 1 % (0-3) Basophils % (Manual) 1 % (0-2) Band Neutrophils 0 % (0-8) Platelet Estimate Adequate Platelet Morphology Normal Hypochromasia 2+ Anisocytosis 1+ Spherocytes 1+ Sodium Level 134 MMOL/L (136-145) L Potassium Level 3.6 MMOL/L (3.5-5.1) Chloride Level 101 MMOL/L (98-107) Carbon Dioxide Level 28 MMOL/L (21-32) Anion Gap 5 mmol/L (5-15) Blood Urea Nitrogen 16 mg/dL (7-18) Creatinine 0.7 MG/DL (0.55-1.30) Estimat Glomerular Filtration Rate > 60 mL/min (>60) Glucose Level 75 MG/DL (74-106) Calcium Level 7.8 MG/DL (8.5-10.1) L Phosphorus Level 2.4 MG/DL (2.5-4.9) L Magnesium Level 1.4 MG/DL (1.8-2.4) L Total Bilirubin 0.2 MG/DL (0.2-1.0) Aspartate Amino Transf (AST/SGOT) 20 U/L (15-37) Alanine Aminotransferase (ALT/SGPT) 33 U/L (12-78) Alkaline Phosphatase 108 U/L (46-116) Pro-B-Type Natriuretic Peptide 570 pg/mL (0-125) H Total Protein 7.9 G/DL (6.4-8.2) Albumin 1.5 G/DL (3.4-5.0) L Globulin 6.4 g/dL Albumin/Globulin Ratio 0.2 (1.0-2.7) L Current Medications Medications (Trade) Dose Ordered Sig/Anna Route PRN Reason Start Time Stop Time Status Last Admin Dose Admin Albuterol/ Ipratropium (Albuterol/ Ipratropium) 3 ml Q4H PRN HHN Shortness of Breath 06/19/17 09:30 06/24/17 09:29 Albuterol/ Ipratropium (Albuterol/ Ipratropium) 3 ml Q6HRT HHN 06/11/17 13:00 06/16/17 23:59 06/15/17 23:54 Azithromycin (Zithromax) 600 mg DAILY ORAL 06/20/17 13:00 06/23/17 10:05 Divalproex Sodium (Depakote ER) 1,000 mg EVERY 12 HOURS ORAL 05/29/17 09:00 06/28/17 08:59 06/23/17 10:06 Docusate Sodium (Colace) 100 mg TWICE A DAY ORAL 06/08/17 18:00 07/08/17 17:59 06/11/17 10:03 Dolutegravir Sodium (Tivicay) 50 mg DAILY ORAL 06/19/17 09:00 07/19/17 08:59 06/23/17 10:05 Emtricitabine/ Tenofovir (Truvada 200/ 300mg) 1 tab DAILY ORAL 06/19/17 11:00 07/19/17 10:59 06/23/17 09:00 Ethambutol HCl (Myambutol) 600 mg DAILY ORAL 06/12/17 14:45 07/12/17 14:44 06/23/17 10:04 Famotidine (Pepcid) 20 mg QHS ORAL 06/23/17 21:00 2/8/18 20:59 Fluoxetine HCl (PROzac) 20 mg DAILY ORAL 05/27/17 09:00 06/26/17 08:59 06/23/17 10:06 Folic Acid (Folate) 1 mg DAILY ORAL 05/27/17 09:00 06/26/17 08:59 06/23/17 09:00 Heparin Sodium (Porcine) (Heparin 5000 units/ml) 5,000 units EVERY 12 HOURS SUBQ 06/23/17 09:00 07/23/17 08:59 Lactulose (Cephulac) 10 gm THREE TIMES A DAY ORAL 06/08/17 13:00 07/08/17 12:59 06/11/17 10:05 Magnesium Oxide (Mag-Ox 400mg) 500 mg THREE TIMES A DAY ORAL 06/12/17 19:30 07/12/17 19:29 06/23/17 09:00 Multivitamins (Multivitamins) 1 tab DAILY ORAL 05/31/17 09:00 06/30/17 08:59 06/23/17 10:06 Prednisone (predniSONE) 40 mg DAILY ORAL 06/19/17 10:00 07/19/17 09:59 06/23/17 10:07 Rifabutin (Mycobutin) 300 mg DAILY ORAL 06/12/17 14:45 07/12/17 14:44 06/23/17 10:05 Sodium Chloride (NaCl) 1 gm THREE TIMES A DAY ORAL 06/21/17 09:00 07/21/17 08:59 06/23/17 10:06 Thiamine HCl (Vitamin B1) 100 mg DAILY ORAL 05/31/17 09:00 06/30/17 08:59 06/23/17 10:07 Haydee Tucker M.D. Jun 23, 2017 12:06
--- NOTE | 2017-06-23 12:50 | Diagnostic Imaging Report ---
Indication: Dyspnea Comparison: 06/17/2017 A single view chest radiograph was obtained. Findings: Patchy alveolar/interstitial infiltrates demonstrated bilaterally. On is unchanged compared to the previous examination. This correlate clinically. Heart size remains normal. Bones are unremarkable. IMPRESSION: Bilateral infiltrates unchanged
--- NOTE | 2017-06-23 14:47 | GI Progress Note ---
Assessment/Plan Problems: (1) Generalized weakness ICD Codes: R53.1 - Weakness SNOMED: 52928637 (2) Anemia ICD Codes: D64.9 - Anemia, unspecified SNOMED: 685047615 (3) Severe protein-calorie malnutrition ICD Codes: E43 - Unspecified severe protein-calorie malnutrition SNOMED: 314885680 (4) Atypical pneumonia ICD Codes: J18.9 - Pneumonia, unspecified organism SNOMED: 006764342 (5) Protein calorie malnutrition ICD Codes: E46 - Unspecified protein-calorie malnutrition SNOMED: 566182034 Qualifiers: Qualified Codes: E44.0 - Moderate protein-calorie malnutrition (6) Diarrhea ICD Codes: R19.7 - Diarrhea, unspecified SNOMED: 99042547 Qualifiers: Qualified Codes: R19.7 - Diarrhea, unspecified Status: stable, unchanged Status Narrative Discussed with Dr. Gamez. Assessment/Plan CT chest reviewed. cdiff negative iron levels unremarkable HIV positive airborne r/o TB >> negative KUB r/o chronic pancreatitis >> unremarkable OB stool r/o GI bleed >> negative Tissue Transglutaminase IgA r/o celiac >> negative Failure to thrive anorexia anemia - needs repeat H&H PNA MAC infection Diarrhea vs constipation fu ID, oncology recs regular diet, tolerating cont bowel regime monitor H&H, prn transfusions bowel regime ppi folate PO H2B fu labs Subjective Gastrointestinal/Abdominal: Reports: no symptoms Subjective participating with PT Objective Last 24 Hour Vital Signs Date Time Temp Pulse Resp B/P (MAP) Pulse Ox O2 Delivery O2 Flow Rate FiO2 06/23/17 13:30 61 18 Room Air 21 06/23/17 12:00 97.3 79 20 109/88 100 06/23/17 08:00 98.0 59 18 106/52 100 06/23/17 04:00 97.4 60 20 110/73 100 06/23/17 00:00 97.7 67 20 100/55 96 06/22/17 20:00 97.5 54 20 115/70 100 06/22/17 16:21 97.8 69 20 109/65 99 06/22/17 16:15 Room Air 21 06/22/17 16:15 98 Room Air 21 Intake and Output 06/22/17 06/23/17 19:00 07:00 Intake Total 660 ml Output Total 400 ml 800 ml Balance 260 ml -800 ml Intake Oral 660 ml Output Urine Total 400 ml 800 ml # Voids 2 # Bowel Movements 2 3 Laboratory Tests Test 06/23/17 06:45 White Blood Count 2.5 K/UL (4.8-10.8) L Red Blood Count 3.31 M/UL (4.70-6.10) L Hemoglobin 9.8 G/DL (14.2-18.0) L Hematocrit 29.3 % (42.0-52.0) L Mean Corpuscular Volume 89 FL (80-99) Mean Corpuscular Hemoglobin 29.5 PG (27.0-31.0) Mean Corpuscular Hemoglobin Concent 33.3 G/DL (32.0-36.0) Red Cell Distribution Width 14.3 % (11.6-14.8) Platelet Count 235 K/UL (150-450) Mean Platelet Volume 7.8 FL (6.5-10.1) Neutrophils (%) (Auto) % (45.0-75.0) Lymphocytes (%) (Auto) % (20.0-45.0) Monocytes (%) (Auto) % (1.0-10.0) Eosinophils (%) (Auto) % (0.0-3.0) Basophils (%) (Auto) % (0.0-2.0) Differential Total Cells Counted 100 Neutrophils % (Manual) 63 % (45-75) Lymphocytes % (Manual) 21 % (20-45) Monocytes % (Manual) 14 % (1-10) H Eosinophils % (Manual) 1 % (0-3) Basophils % (Manual) 1 % (0-2) Band Neutrophils 0 % (0-8) Platelet Estimate Adequate Platelet Morphology Normal Hypochromasia 2+ Anisocytosis 1+ Spherocytes 1+ Sodium Level 134 MMOL/L (136-145) L Potassium Level 3.6 MMOL/L (3.5-5.1) Chloride Level 101 MMOL/L (98-107) Carbon Dioxide Level 28 MMOL/L (21-32) Anion Gap 5 mmol/L (5-15) Blood Urea Nitrogen 16 mg/dL (7-18) Creatinine 0.7 MG/DL (0.55-1.30) Estimat Glomerular Filtration Rate > 60 mL/min (>60) Glucose Level 75 MG/DL (74-106) Calcium Level 7.8 MG/DL (8.5-10.1) L Phosphorus Level 2.4 MG/DL (2.5-4.9) L Magnesium Level 1.4 MG/DL (1.8-2.4) L Total Bilirubin 0.2 MG/DL (0.2-1.0) Aspartate Amino Transf (AST/SGOT) 20 U/L (15-37) Alanine Aminotransferase (ALT/SGPT) 33 U/L (12-78) Alkaline Phosphatase 108 U/L (46-116) Pro-B-Type Natriuretic Peptide 570 pg/mL (0-125) H Total Protein 7.9 G/DL (6.4-8.2) Albumin 1.5 G/DL (3.4-5.0) L Globulin 6.4 g/dL Albumin/Globulin Ratio 0.2 (1.0-2.7) L Height (Feet): 5 Height (Inches): 10.00 Weight (Pounds): 90 General Appearance: WD/WN, no apparent distress, alert, thin Cardiovascular: normal rate Respiratory/Chest: normal breath sounds, no respiratory distress Abdominal Exam: normal bowel sounds, non tender, soft Extremities: normal range of motion, non-tender Alyssa Felix N.P. Jun 23, 2017 14:47
--- NOTE | 2017-06-23 19:02 | Cardiology Progress Note ---
Assessment/Plan Assessment/Plan 1. Sinus tachycardia resolved, due to sepsis, hypovolemia or hypoxemia. Normal LV systolic function with LVEF at 50%. 2. Small pericardial effusion. 3. Hypotension, resolved due to sepsis. 4. Moderate pulmonary HTN could be due to HIV disease. Subjective Subjective No cardiac events is reported. Denies chest pain or SOB. Objective Last 24 Hour Vital Signs Date Time Temp Pulse Resp B/P (MAP) Pulse Ox O2 Delivery O2 Flow Rate FiO2 06/23/17 16:00 97.2 84 20 119/72 100 06/23/17 13:30 61 18 Room Air 21 06/23/17 12:00 97.3 79 20 109/88 100 06/23/17 08:00 98.0 59 18 106/52 100 06/23/17 04:00 97.4 60 20 110/73 100 06/23/17 00:00 97.7 67 20 100/55 96 06/22/17 20:00 97.5 54 20 115/70 100 Intake and Output 06/22/17 06/23/17 19:00 07:00 Intake Total 660 ml Output Total 400 ml 800 ml Balance 260 ml -800 ml Intake Oral 660 ml Output Urine Total 400 ml 800 ml # Voids 2 # Bowel Movements 2 3 2D Echo: LVEF 50%, Mild AR, Grade II pseudo-normal LV physiology, RVSP 19 mmHg Laboratory Tests Test 06/23/17 06:45 White Blood Count 2.5 K/UL (4.8-10.8) L Red Blood Count 3.31 M/UL (4.70-6.10) L Hemoglobin 9.8 G/DL (14.2-18.0) L Hematocrit 29.3 % (42.0-52.0) L Mean Corpuscular Volume 89 FL (80-99) Mean Corpuscular Hemoglobin 29.5 PG (27.0-31.0) Mean Corpuscular Hemoglobin Concent 33.3 G/DL (32.0-36.0) Red Cell Distribution Width 14.3 % (11.6-14.8) Platelet Count 235 K/UL (150-450) Mean Platelet Volume 7.8 FL (6.5-10.1) Neutrophils (%) (Auto) % (45.0-75.0) Lymphocytes (%) (Auto) % (20.0-45.0) Monocytes (%) (Auto) % (1.0-10.0) Eosinophils (%) (Auto) % (0.0-3.0) Basophils (%) (Auto) % (0.0-2.0) Differential Total Cells Counted 100 Neutrophils % (Manual) 63 % (45-75) Lymphocytes % (Manual) 21 % (20-45) Monocytes % (Manual) 14 % (1-10) H Eosinophils % (Manual) 1 % (0-3) Basophils % (Manual) 1 % (0-2) Band Neutrophils 0 % (0-8) Platelet Estimate Adequate Platelet Morphology Normal Hypochromasia 2+ Anisocytosis 1+ Spherocytes 1+ Sodium Level 134 MMOL/L (136-145) L Potassium Level 3.6 MMOL/L (3.5-5.1) Chloride Level 101 MMOL/L (98-107) Carbon Dioxide Level 28 MMOL/L (21-32) Anion Gap 5 mmol/L (5-15) Blood Urea Nitrogen 16 mg/dL (7-18) Creatinine 0.7 MG/DL (0.55-1.30) Estimat Glomerular Filtration Rate > 60 mL/min (>60) Glucose Level 75 MG/DL (74-106) Calcium Level 7.8 MG/DL (8.5-10.1) L Phosphorus Level 2.4 MG/DL (2.5-4.9) L Magnesium Level 1.4 MG/DL (1.8-2.4) L Total Bilirubin 0.2 MG/DL (0.2-1.0) Aspartate Amino Transf (AST/SGOT) 20 U/L (15-37) Alanine Aminotransferase (ALT/SGPT) 33 U/L (12-78) Alkaline Phosphatase 108 U/L (46-116) Pro-B-Type Natriuretic Peptide 570 pg/mL (0-125) H Total Protein 7.9 G/DL (6.4-8.2) Albumin 1.5 G/DL (3.4-5.0) L Globulin 6.4 g/dL Albumin/Globulin Ratio 0.2 (1.0-2.7) L Objective GENERAL: No acute respiratory distress HEENT: Atraumatic, normocephalic, PERRLA, EOMI. NECK: JVP < 5 cm, no carotid bruit. LUNGS: Decreased breath sounds. CARDIOVASCULAR: Regular rate rhythm, tachycardic, normal S1S2, no murmurs, gallops or rubs. ABDOMEN: Soft, nontender, and nondistended. EXTREMITIES: 1+ B/L edema. VIET SCHROEDER Jun 23, 2017 19:02
--- NOTE | 2017-06-23 20:55 | Pulmonology Progress Note ---
Assessment/Plan Problems: (1) Atypical pneumonia (2) Severe protein-calorie malnutrition (3) Interstitial lung disease (4) Diarrhea Assessment/Plan Continue MAC treatment Pathology pending DC planning soon PT/OT evaluation again Will need snif placement Subjective ROS Limited/Unobtainable: No Respiratory: Reports: productive cough, sputum Allergies: Coded Allergies: No Known Allergies (Unverified , 05/23/17) Objective Last 24 Hour Vital Signs Date Time Temp Pulse Resp B/P (MAP) Pulse Ox O2 Delivery O2 Flow Rate FiO2 06/23/17 19:58 98.2 68 20 107/67 99 Room Air 06/23/17 16:00 97.2 84 20 119/72 100 06/23/17 13:30 61 18 Room Air 21 06/23/17 12:00 97.3 79 20 109/88 100 06/23/17 08:00 98.0 59 18 106/52 100 06/23/17 04:00 97.4 60 20 110/73 100 06/23/17 00:00 97.7 67 20 100/55 96 Intake and Output 06/22/17 06/23/17 19:00 07:00 Intake Total 660 ml Output Total 400 ml 800 ml Balance 260 ml -800 ml Intake Oral 660 ml Output Urine Total 400 ml 800 ml # Voids 2 # Bowel Movements 2 3 General Appearance: no acute distress HEENT: normocephalic, atraumatic, PERRL Respiratory/Chest: chest wall non-tender, normal breath sounds Cardiovascular: normal peripheral pulses, normal rate, regular rhythm, no JVD Abdomen: normal bowel sounds, soft, non tender, no organomegaly, non distended Genitourinary: normal external genitalia Extremities: no cyanosis Skin: no rash, no lesions Neurologic/Psychiatric: director of consumer affairs II-XII 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, no motor/sensory deficits Laboratory Tests 06/23/17 06:45: White Blood Count 2.5L, Red Blood Count 3.31L, Hemoglobin 9.8L, Hematocrit 29.3L , Mean Corpuscular Volume 89, Mean Corpuscular Hemoglobin 29.5, Mean Corpuscular Hemoglobin Concent 33.3, Red Cell Distribution Width 14.3, Platelet Count 235, Mean Platelet Volume 7.8, Neutrophils (%) (Auto) , Lymphocytes (%) ( Auto) , Monocytes (%) (Auto) , Eosinophils (%) (Auto) , Basophils (%) (Auto) , Differential Total Cells Counted 100, Neutrophils % (Manual) 63, Lymphocytes % ( Manual) 21, Monocytes % (Manual) 14H, Eosinophils % (Manual) 1, Basophils % ( Manual) 1, Band Neutrophils 0, Platelet Estimate Adequate, Platelet Morphology Normal, Hypochromasia 2+, Anisocytosis 1+, Spherocytes 1+, Sodium Level 134L, Potassium Level 3.6, Chloride Level 101, Carbon Dioxide Level 28, Anion Gap 5, Blood Urea Nitrogen 16, Creatinine 0.7, Estimat Glomerular Filtration Rate > 60 , Glucose Level 75, Calcium Level 7.8L, Phosphorus Level 2.4L, Magnesium Level 1.4L, Total Bilirubin 0.2, Aspartate Amino Transf (AST/SGOT) 20, Alanine Aminotransferase (ALT/SGPT) 33, Alkaline Phosphatase 108, Pro-B-Type Natriuretic Peptide 570H, Total Protein 7.9, Albumin 1.5L, Globulin 6.4, Albumin /Globulin Ratio 0.2L Current Medications Medications (Trade) Dose Ordered Sig/Anna Route PRN Reason Start Time Stop Time Status Last Admin Dose Admin Albuterol/ Ipratropium (Albuterol/ Ipratropium) 3 ml Q4H PRN HHN Shortness of Breath 06/19/17 09:30 06/24/17 09:29 Albuterol/ Ipratropium (Albuterol/ Ipratropium) 3 ml Q6HRT HHN 06/11/17 13:00 06/16/17 23:59 06/15/17 23:54 Azithromycin (Zithromax) 600 mg DAILY ORAL 06/20/17 13:00 06/23/17 10:05 Divalproex Sodium (Depakote ER) 1,000 mg EVERY 12 HOURS ORAL 05/29/17 09:00 06/28/17 08:59 06/23/17 10:06 Docusate Sodium (Colace) 100 mg TWICE A DAY ORAL 06/08/17 18:00 07/08/17 17:59 06/11/17 10:03 Dolutegravir Sodium (Tivicay) 50 mg DAILY ORAL 06/19/17 09:00 07/19/17 08:59 06/23/17 10:05 Emtricitabine/ Tenofovir (Truvada 200/ 300mg) 1 tab DAILY ORAL 06/19/17 11:00 07/19/17 10:59 06/23/17 09:00 Ethambutol HCl (Myambutol) 600 mg DAILY ORAL 06/12/17 14:45 07/12/17 14:44 06/23/17 10:04 Famotidine (Pepcid) 20 mg QHS ORAL 06/23/17 21:00 07/23/17 20:59 Fluoxetine HCl (PROzac) 20 mg DAILY ORAL 05/27/17 09:00 06/26/17 08:59 06/23/17 10:06 Folic Acid (Folate) 1 mg DAILY ORAL 05/27/17 09:00 06/26/17 08:59 06/23/17 09:00 Heparin Sodium (Porcine) (Heparin 5000 units/ml) 5,000 units EVERY 12 HOURS SUBQ 06/23/17 09:00 07/23/17 08:59 06/23/17 20:10 Lactulose (Cephulac) 10 gm THREE TIMES A DAY ORAL 06/08/17 13:00 07/08/17 12:59 06/11/17 10:05 Magnesium Oxide (Mag-Ox 400mg) 500 mg THREE TIMES A DAY ORAL 06/12/17 19:30 07/12/17 19:29 06/23/17 09:00 Multivitamins (Multivitamins) 1 tab DAILY ORAL 05/31/17 09:00 06/30/17 08:59 06/23/17 10:06 Prednisone (predniSONE) 40 mg DAILY ORAL 06/19/17 10:00 07/19/17 09:59 06/23/17 10:07 Rifabutin (Mycobutin) 300 mg DAILY ORAL 06/12/17 14:45 07/12/17 14:44 06/23/17 10:05 Sodium Chloride (NaCl) 1 gm THREE TIMES A DAY ORAL 06/21/17 09:00 07/21/17 08:59 06/23/17 10:06 Thiamine HCl (Vitamin B1) 100 mg DAILY ORAL 05/31/17 09:00 06/30/17 08:59 06/23/17 10:07 TAMMIE MARY Jun 23, 2017 20:55
--- NOTE | 2017-06-23 22:25 | General Progress Note ---
Assessment/Plan Status: unchanged Assessment/Plan ASSESSMENT/PLAN # Leukopenia 2/2 HIV --> unfortunately has refused bone marrow biopsy, have explained him the risks and of potentially missing a diagnosis such as lymphoma --> bone marrow biopsy completed 06/18/17 and preliminary is negative, --> final results of bone marrow biopsy completed today 06/23, pathology revealing neg afb strains, neg granuloma, neg lymphoma, increased iron storages # Anemia 2/2 HIV, watch counts, transfuse if hgb below 7 --> hemoglobin has been >7 --> blood transfusion not required today -->Low folate level, continue PO folate # Anemia 2/2 folic acid deficiency --> on folate p.o. # HIV with very low CD4 count --> vl is high # AFB + for Mycobacterium avium. To be confirmed with bone marrow bx 06/17/17 --> on abx for disseminated MAC # MSSA PNA # Interstitial lung disease --> may require lung biopsy # acute hypoxemic RF # severe protein calorie malnutrition # diarrhea, better. C. diff negative. GI following # alcohol dependence # depression Subjective Date patient seen: Jun 23, 2017 Constitutional: Denies: no symptoms, chills, diaphoresis, fever, malaise, weakness, other HEENT: Denies: no symptoms, eye pain, blurred vision, tearing, double vision, ear pain, ear discharge, nose pain, nose congestion, throat pain, throat swelling, mouth pain, mouth swelling, other Cardiovascular: Denies: no symptoms, chest pain, edema, irregular heart rate, lightheadedness, palpitations, syncope, other Respiratory: Denies: no symptoms, cough, orthopnea, shortness of breath, SOB with excertion, SOB at rest, sputum, stridor, wheezing, other Gastrointestinal/Abdominal: Denies: no symptoms, abdomen distended, abdominal pain, black stools, tarry stools, blood in stool, constipated, diarrhea, difficulty swallowing, nausea, poor appetite, poor fluid intake, rectal bleeding , vomiting, other Hematologic/Lymphatic: Reports: anemia Allergies: Coded Allergies: No Known Allergies (Unverified , 05/23/17) Subjective S/P Chest Xray and Bone Marrow biopsy. Awaiting placement. Objective Last 24 Hour Vital Signs Date Time Temp Pulse Resp B/P (MAP) Pulse Ox O2 Delivery O2 Flow Rate FiO2 06/23/17 19:58 98.2 68 20 107/67 99 Room Air 06/23/17 16:00 97.2 84 20 119/72 100 06/23/17 13:30 61 18 Room Air 21 06/23/17 12:00 97.3 79 20 109/88 100 06/23/17 08:00 98.0 59 18 106/52 100 06/23/17 04:00 97.4 60 20 110/73 100 06/23/17 00:00 97.7 67 20 100/55 96 Intake and Output 06/22/17 06/23/17 19:00 07:00 Intake Total 660 ml Output Total 400 ml 800 ml Balance 260 ml -800 ml Intake Oral 660 ml Output Urine Total 400 ml 800 ml # Voids 2 # Bowel Movements 2 3 Laboratory Tests 06/23/17 06:45: White Blood Count 2.5L, Red Blood Count 3.31L, Hemoglobin 9.8L, Hematocrit 29.3L , Mean Corpuscular Volume 89, Mean Corpuscular Hemoglobin 29.5, Mean Corpuscular Hemoglobin Concent 33.3, Red Cell Distribution Width 14.3, Platelet Count 235, Mean Platelet Volume 7.8, Neutrophils (%) (Auto) , Lymphocytes (%) ( Auto) , Monocytes (%) (Auto) , Eosinophils (%) (Auto) , Basophils (%) (Auto) , Differential Total Cells Counted 100, Neutrophils % (Manual) 63, Lymphocytes % ( Manual) 21, Monocytes % (Manual) 14H, Eosinophils % (Manual) 1, Basophils % ( Manual) 1, Band Neutrophils 0, Platelet Estimate Adequate, Platelet Morphology Normal, Hypochromasia 2+, Anisocytosis 1+, Spherocytes 1+, Sodium Level 134L, Potassium Level 3.6, Chloride Level 101, Carbon Dioxide Level 28, Anion Gap 5, Blood Urea Nitrogen 16, Creatinine 0.7, Estimat Glomerular Filtration Rate > 60 , Glucose Level 75, Calcium Level 7.8L, Phosphorus Level 2.4L, Magnesium Level 1.4L, Total Bilirubin 0.2, Aspartate Amino Transf (AST/SGOT) 20, Alanine Aminotransferase (ALT/SGPT) 33, Alkaline Phosphatase 108, Pro-B-Type Natriuretic Peptide 570H, Total Protein 7.9, Albumin 1.5L, Globulin 6.4, Albumin /Globulin Ratio 0.2L Height (Feet): 5 Height (Inches): 10.00 Weight (Pounds): 90 General Appearance: no apparent distress Neck: supple Cardiovascular: regular rhythm Respiratory/Chest: decreased breath sounds Abdomen: non tender, soft Nikhil Woodward Jun 23, 2017 22:25
[2017-06-24 03:55] VITALS: BP 123/75
[2017-06-24 08:00] VITALS: BP 123/78
[2017-06-24] MEDS: Lactulose 10gm/15ml UDC ORAL SCH ×3 (09:00→17:15)
[2017-06-24] MEDS: Docusate 100mg cap ORAL SCH ×2 (09:00→17:15)
[2017-06-24] MEDS: Heparin 5000 units/ml inj SUBQ SCH ×2 (09:00→21:40)
[2017-06-24] MEDS: Rifabutin 150mg cap ORAL SCH (09:15)
[2017-06-24] MEDS: Sodium Chloride 1gm Tab ORAL SCH ×3 (09:16→17:21)
[2017-06-24] MEDS: Magnesium Oxide 400mg tab ORAL SCH ×3 (09:17→17:22)
[2017-06-24] MEDS: Dolutegravir Sodium 50mg tab ORAL SCH (09:17)
[2017-06-24] MEDS: Thiamine 100mg tab ORAL SCH (09:18)
[2017-06-24] MEDS: Depakote ER 500mg tab ORAL SCH ×2 (09:18→21:00)
[2017-06-24] MEDS: Azithromycin 600mg Tab ORAL SCH (09:23)
[2017-06-24 12:00] VITALS: BP 123/78
--- NOTE | 2017-06-24 12:05 | Infectious Diseases Prog Note ---
Assessment/Plan Assessment/Plan Suspected Disseminated MAC- MAC isolated for sputum. Typically isolated pulmonary MAC infection is seen in immunocompetent patients. Given he is HIV with probably AIDS with a low CD4 as very low lymphocyte counts (CD4 unable to be calculated) and his clinical presentation of wt loss, intermittent fevers, leukopenia/anemia, pulmonary infiltrates are very suggestive of the diagnosis. Diagnosis is confirmed by either isolation of MAC from blood and/or bone marrow. So far bone marrow biopsy neg for MAC- however given his clinical presentation, MAC isolated from lungs, HIV/AIDS status will treat for disseminated MAC; await final AFB cx from blood and bone marrow biopsy -s/p bone marrow biopsy 06/18 -path: preliminary neg, neg AFB stains, neg granuloma, neg for lymphoma- increased iron storages -bacterial cx neg; fungal and AFB cx p Pneumonia. . Sp Cx : MSSA SP Rx - s/p Bronchoscopy 06/10: friable mucosa, mild mucoid secretions; cx normal [place] -BAL cytology: rare atypical cells. Neg GMS and PCP stain CT of Abd /Bilateral pulmonary alveolar infiltrates consistent with pneumonia.- patient not hypoxic, not febrile- lower suspicion PCP; PCP DFA neg AFBx 3 : Neg ( 3rd from 05/26 not in EMR ) now AFB Cx 06/16 05/25 : +MAC; MTB PCR : Neg T Spot : neg Crytpo and blastomycosis: JOHANNA Neg ; RF + histo ab, Cocci ab : neg CT: Extensive interstitial and airspace parenchymal disease, and honeycomb appearance of much of the lower lobe and right middle lobe interstitial component, HIV/AIDS: first test negative repeat, repeat +; VL 973,150; CD4 unable to be calculated due to low absolute lymphocyte count -repeat CD4 p -HIV genotype: no resistance identified on RT or PI -Hep a immune -Hep b not immune, neg hep C -RPR neg -GC/CL neg - HLA B27 + Chronic diarrhea resolved, now constipated Stool for ova and parasite ( ? sent ) stool Cx : neg ? pancreatic insufficiency due to chronic alcohol abuse. also possibly due to disseminated MAC Elevated ESR , CRP and RF JOHANNA : neg Leukopenia/anemia Anemia and leukopenia PLAN: -Continue tx for suspect disseminated MAC with Azithromycin 600mg qd, Rifabutin 300mg qd and Ethambutol 600mg qd #13 awaiting final AFB bone marrow cx- decision to continue tx if cultures negative up to his new to be outpatient HIV provider as bone marrow biopsy was negative for disseminated MAC -f/u AFB bcx (never collected; reordered 06/22) -for bone marrow biopsy final results and cx -review drug-drug interactions with any new meds - Continue Truvada and Dolutegravir ( started 06/19 ) -f/u BAL cx (fungal, AFB), bone marrow bx path and cx -f/u repeat CD4 as lymphocyte count improving -continue Bactrim DS 1 tab qd for PCP ppx - watch case polisher consulted to start working on HIV clinic to continue HIV and MAC to be set up prior to discharge; risk of readmission if not follow up with a HIV provider upon discharge. -pending discharge to [facility] 06/15 Bactrim high dose #4 06/05 SP Ancef d# 10 05/30 SP Zithromax d# 5 / 5 06/01 SP ( refusing) Flagyl d# 46 05/27 SP vancomycin, cefepime d# 5, Monitor CBC/CMP f/u Fungal and AFB blood Cx Discussed with RN Subjective Allergies: Coded Allergies: No Known Allergies (Unverified , 05/23/17) Subjective afebrile tolerating HIV and MAC tx Objective Vital Signs Last 24 Hour Vital Signs Date Time Temp Pulse Resp B/P (MAP) Pulse Ox O2 Delivery O2 Flow Rate FiO2 06/24/17 08:00 96.3 65 20 123/78 99 06/24/17 03:55 97.0 54 20 123/75 99 Room Air 06/23/17 23:52 97.2 49 20 110/60 100 Room Air 06/23/17 19:58 98.2 68 20 107/67 99 Room Air 06/23/17 16:00 97.2 84 20 119/72 100 06/23/17 13:30 61 18 Room Air 21 Height (Feet): 5 Height (Inches): 10.00 Weight (Pounds): 90 Objective General Appearance: no acute distress, cachetic HEENT: normocephalic, atraumatic, mucous membranes moist Respiratory/Chest: CTA x2 Cardiovascular: normal peripheral pulses, regular rhythm, regularly irregular Abdomen: normal bowel sounds, soft, non tender, no organomegaly, non distended Extremities: no cyanosis, no clubbing, no edema Laboratory Tests Test 06/24/17 06:00 C-Reactive Protein, Quantitative 1.7 mg/dL (0.00-0.90) H Treponema pallidum Ab (FTA-ABS) Pending Current Medications Medications (Trade) Dose Ordered Sig/Anna Route PRN Reason Start Time Stop Time Status Last Admin Dose Admin Albuterol/ Ipratropium (Albuterol/ Ipratropium) 3 ml Q6HRT HHN 06/11/17 13:00 06/16/17 23:59 06/15/17 23:54 Azithromycin (Zithromax) 600 mg DAILY ORAL 06/20/17 13:00 06/24/17 09:23 Divalproex Sodium (Depakote ER) 1,000 mg EVERY 12 HOURS ORAL 05/29/17 09:00 06/28/17 08:59 06/24/17 09:18 Docusate Sodium (Colace) 100 mg TWICE A DAY ORAL 06/08/17 18:00 07/08/17 17:59 06/11/17 10:03 Dolutegravir Sodium (Tivicay) 50 mg DAILY ORAL 06/19/17 09:00 07/19/17 08:59 06/24/17 09:17 Emtricitabine/ Tenofovir (Truvada 200/ 300mg) 1 tab DAILY ORAL 06/19/17 11:00 07/19/17 10:59 06/24/17 09:18 Ethambutol HCl (Myambutol) 600 mg DAILY ORAL 06/12/17 14:45 07/12/17 14:44 06/24/17 09:16 Famotidine (Pepcid) 20 mg QHS ORAL 06/23/17 21:00 07/23/17 20:59 Fluoxetine HCl (PROzac) 20 mg DAILY ORAL 05/27/17 09:00 06/26/17 08:59 06/24/17 09:17 Folic Acid (Folate) 1 mg DAILY ORAL 05/27/17 09:00 06/26/17 08:59 06/24/17 09:17 Heparin Sodium (Porcine) (Heparin 5000 units/ml) 5,000 units EVERY 12 HOURS SUBQ 06/23/17 09:00 07/23/17 08:59 06/23/17 20:10 Lactulose (Cephulac) 10 gm THREE TIMES A DAY ORAL 06/08/17 13:00 07/08/17 12:59 06/11/17 10:05 Magnesium Oxide (Mag-Ox 400mg) 500 mg THREE TIMES A DAY ORAL 06/12/17 19:30 07/12/17 19:29 06/24/17 09:17 Multivitamins (Multivitamins) 1 tab DAILY ORAL 05/31/17 09:00 06/30/17 08:59 06/24/17 09:18 Prednisone (predniSONE) 40 mg DAILY ORAL 06/19/17 10:00 07/19/17 09:59 06/24/17 09:17 Rifabutin (Mycobutin) 300 mg DAILY ORAL 06/12/17 14:45 07/12/17 14:44 06/24/17 09:15 Sodium Chloride (NaCl) 1 gm THREE TIMES A DAY ORAL 06/21/17 09:00 07/21/17 08:59 06/24/17 09:16 Thiamine HCl (Vitamin B1) 100 mg DAILY ORAL 05/31/17 09:00 06/30/17 08:59 06/24/17 09:18 Haydee Tucker M.D. Jun 24, 2017 12:05
--- NOTE | 2017-06-24 14:31 | GI Progress Note ---
Assessment/Plan Problems: (1) Generalized weakness ICD Codes: R53.1 - Weakness SNOMED: 25573895 (2) Anemia ICD Codes: D64.9 - Anemia, unspecified SNOMED: 900874088 (3) Severe protein-calorie malnutrition ICD Codes: E43 - Unspecified severe protein-calorie malnutrition SNOMED: 394050803 (4) Atypical pneumonia ICD Codes: J18.9 - Pneumonia, unspecified organism SNOMED: 308478609 (5) Protein calorie malnutrition ICD Codes: E46 - Unspecified protein-calorie malnutrition SNOMED: 307139197 Qualifiers: Qualified Codes: E44.0 - Moderate protein-calorie malnutrition (6) Diarrhea ICD Codes: R19.7 - Diarrhea, unspecified SNOMED: 11042321 Qualifiers: Qualified Codes: R19.7 - Diarrhea, unspecified Status: unchanged Status Narrative Discussed with Dr. Gamez. Assessment/Plan CT chest reviewed. cdiff negative iron levels unremarkable HIV positive airborne r/o TB >> negative KUB r/o chronic pancreatitis >> unremarkable OB stool r/o GI bleed >> negative Tissue Transglutaminase IgA r/o celiac >> negative Failure to thrive anorexia anemia - needs repeat H&H PNA MAC infection Diarrhea vs constipation fu ID, oncology recs regular diet, tolerating cont bowel regime monitor H&H, prn transfusions bowel regime ppi folate PO H2B fu labs Subjective Gastrointestinal/Abdominal: Reports: no symptoms Subjective participating with PT Objective Last 24 Hour Vital Signs Date Time Temp Pulse Resp B/P (MAP) Pulse Ox O2 Delivery O2 Flow Rate FiO2 06/24/17 12:00 96.3 65 20 123/78 99 06/24/17 08:00 96.3 65 20 123/78 99 06/24/17 03:55 97.0 54 20 123/75 99 Room Air 06/23/17 23:52 97.2 49 20 110/60 100 Room Air 06/23/17 19:58 98.2 68 20 107/67 99 Room Air 06/23/17 16:00 97.2 84 20 119/72 100 Intake and Output 06/23/17 06/24/17 19:00 07:00 Intake Total 480 ml Balance 480 ml Intake Oral 480 ml # Voids 2 3 # Bowel Movements 1 Laboratory Tests Test 06/24/17 06:00 C-Reactive Protein, Quantitative 1.7 mg/dL (0.00-0.90) H Treponema pallidum Ab (FTA-ABS) Pending Height (Feet): 5 Height (Inches): 10.00 Weight (Pounds): 90 General Appearance: WD/WN, no apparent distress, alert, thin Cardiovascular: normal rate Respiratory/Chest: normal breath sounds, no respiratory distress Abdominal Exam: normal bowel sounds, non tender, soft Extremities: normal range of motion, non-tender Alyssa Felix N.P. Jun 24, 2017 14:31
[2017-06-24] MEDS: Bactrim-DS 1 tab ORAL SCH (14:40)
[2017-06-24 16:00] VITALS: BP 105/59
--- NOTE | 2017-06-24 17:07 | Pulmonology Progress Note ---
Assessment/Plan Problems: (1) Atypical pneumonia (2) Severe protein-calorie malnutrition (3) Interstitial lung disease (4) Diarrhea Assessment/Plan Continue MAC treatment Pathology pending DC planning soon PT/OT evaluation again Will need snif placement Subjective ROS Limited/Unobtainable: No Allergies: Coded Allergies: No Known Allergies (Unverified , 05/23/17) Objective Last 24 Hour Vital Signs Date Time Temp Pulse Resp B/P (MAP) Pulse Ox O2 Delivery O2 Flow Rate FiO2 06/24/17 16:00 97.9 80 20 105/59 100 06/24/17 12:00 96.3 65 20 123/78 99 06/24/17 08:00 96.3 65 20 123/78 99 06/24/17 03:55 97.0 54 20 123/75 99 Room Air 06/23/17 23:52 97.2 49 20 110/60 100 Room Air 06/23/17 19:58 98.2 68 20 107/67 99 Room Air Intake and Output 06/23/17 06/24/17 19:00 07:00 Intake Total 480 ml Balance 480 ml Intake Oral 480 ml # Voids 2 3 # Bowel Movements 1 Objective General Appearance: no acute distress HEENT: normocephalic, atraumatic Respiratory/Chest: lungs clear, no respiratory distress, no accessory muscle use Cardiovascular: normal rate, no JVD, CL-femoral intact Abdomen: normal bowel sounds, soft, non tender Extremities: no edema Neurologic/Psychiatric: alert, responsive Musculoskeletal: normal muscle bulk Laboratory Tests 06/24/17 06:00: C-Reactive Protein, Quantitative 1.7H, Treponema pallidum Ab (FTA-ABS) [Pending] Current Medications Medications (Trade) Dose Ordered Sig/Anna Route PRN Reason Start Time Stop Time Status Last Admin Dose Admin Albuterol/ Ipratropium (Albuterol/ Ipratropium) 3 ml Q6HRT HHN 06/11/17 13:00 06/16/17 23:59 06/15/17 23:54 Azithromycin (Zithromax) 600 mg DAILY ORAL 06/20/17 13:00 06/24/17 09:23 Divalproex Sodium (Depakote ER) 1,000 mg EVERY 12 HOURS ORAL 05/29/17 09:00 06/28/17 08:59 06/24/17 09:18 Docusate Sodium (Colace) 100 mg TWICE A DAY ORAL 06/08/17 18:00 07/08/17 17:59 06/11/17 10:03 Dolutegravir Sodium (Tivicay) 50 mg DAILY ORAL 06/19/17 09:00 07/19/17 08:59 06/24/17 09:17 Emtricitabine/ Tenofovir (Truvada 200/ 300mg) 1 tab DAILY ORAL 06/19/17 11:00 07/19/17 10:59 06/24/17 09:18 Ethambutol HCl (Myambutol) 600 mg DAILY ORAL 06/12/17 14:45 07/12/17 14:44 06/24/17 09:16 Famotidine (Pepcid) 20 mg QHS ORAL 06/23/17 21:00 07/23/17 20:59 Fluoxetine HCl (PROzac) 20 mg DAILY ORAL 05/27/17 09:00 06/26/17 08:59 06/24/17 09:17 Folic Acid (Folate) 1 mg DAILY ORAL 05/27/17 09:00 06/26/17 08:59 06/24/17 09:17 Heparin Sodium (Porcine) (Heparin 5000 units/ml) 5,000 units EVERY 12 HOURS SUBQ 06/23/17 09:00 07/23/17 08:59 06/23/17 20:10 Lactulose (Cephulac) 10 gm THREE TIMES A DAY ORAL 06/08/17 13:00 07/08/17 12:59 06/11/17 10:05 Magnesium Oxide (Mag-Ox 400mg) 500 mg THREE TIMES A DAY ORAL 06/12/17 19:30 07/12/17 19:29 06/24/17 12:21 Multivitamins (Multivitamins) 1 tab DAILY ORAL 05/31/17 09:00 06/30/17 08:59 06/24/17 09:18 Prednisone (predniSONE) 40 mg DAILY ORAL 06/19/17 10:00 07/19/17 09:59 06/24/17 09:17 Rifabutin (Mycobutin) 300 mg DAILY ORAL 06/12/17 14:45 07/12/17 14:44 06/24/17 09:15 Sodium Chloride (NaCl) 1 gm THREE TIMES A DAY ORAL 06/21/17 09:00 2/6/18 08:59 06/24/17 12:20 Thiamine HCl (Vitamin B1) 100 mg DAILY ORAL 05/31/17 09:00 06/30/17 08:59 06/24/17 09:18 Trimethoprim/ Sulfamethoxazole (Bactrim-DS) 1 ea DAILY ORAL 06/24/17 14:00 07/01/17 13:59 06/24/17 14:40 TAMMIE MARY Jun 24, 2017 17:07
[2017-06-24 20:00] VITALS: BP 123/85
--- NOTE | 2017-06-24 22:36 | General Progress Note ---
Assessment/Plan Status: stable, unchanged Assessment/Plan ASSESSMENT/PLAN # Leukopenia 2/2 HIV --> unfortunately has refused bone marrow biopsy, have explained him the risks and of potentially missing a diagnosis such as lymphoma --> bone marrow biopsy completed 06/18/17 and preliminary is negative, --> final results of bone marrow biopsy completed today 06/23, pathology revealing neg afb strains, neg granuloma, neg lymphoma, increased iron storages # Anemia 2/2 HIV, watch counts, transfuse if hgb below 7 --> hemoglobin has been >7 --> blood transfusion not required today -->Low folate level, continue PO folate # Anemia 2/2 folic acid deficiency --> on folate p.o. # HIV with very low CD4 count --> vl is high # AFB + for Mycobacterium avium. To be confirmed with bone marrow bx 06/17/17 --> on abx for disseminated MAC # MSSA PNA # Interstitial lung disease --> may require lung biopsy # acute hypoxemic RF # severe protein calorie malnutrition # diarrhea, better. C. diff negative. GI following # alcohol dependence # depression Subjective Date patient seen: Jun 24, 2017 HEENT: Denies: no symptoms, eye pain, blurred vision, tearing, double vision, ear pain, ear discharge, nose pain, nose congestion, throat pain, throat swelling, mouth pain, mouth swelling, other Cardiovascular: Denies: no symptoms, chest pain, edema, irregular heart rate, lightheadedness, palpitations, syncope, other Respiratory: Denies: no symptoms, cough, orthopnea, shortness of breath, SOB with excertion, SOB at rest, sputum, stridor, wheezing, other Gastrointestinal/Abdominal: Denies: no symptoms, abdomen distended, abdominal pain, black stools, tarry stools, blood in stool, constipated, diarrhea, difficulty swallowing, nausea, poor appetite, poor fluid intake, rectal bleeding , vomiting, other Genitourinary: Denies: no symptoms, burning, discharge, frequency, flank pain, hematuria, incontinence, pain, urgency, other Hematologic/Lymphatic: Reports: anemia Allergies: Coded Allergies: No Known Allergies (Unverified , 05/23/17) Subjective Awaiting placement. No new events. Anemia stable. Objective Last 24 Hour Vital Signs Date Time Temp Pulse Resp B/P (MAP) Pulse Ox O2 Delivery O2 Flow Rate FiO2 06/24/17 20:00 98.2 112 18 123/85 98 06/24/17 16:00 97.9 80 20 105/59 100 06/24/17 12:00 96.3 65 20 123/78 99 06/24/17 08:00 96.3 65 20 123/78 99 06/24/17 03:55 97.0 54 20 123/75 99 Room Air 06/23/17 23:52 97.2 49 20 110/60 100 Room Air Intake and Output 06/23/17 06/24/17 19:00 07:00 Intake Total 480 ml Balance 480 ml Intake Oral 480 ml # Voids 2 3 # Bowel Movements 1 Laboratory Tests 06/24/17 06:00: C-Reactive Protein, Quantitative 1.7H, Treponema pallidum Ab (FTA-ABS) [Pending] Height (Feet): 5 Height (Inches): 10.00 Weight (Pounds): 90 General Appearance: no apparent distress EENT: normal ENT inspection Neck: normal alignment, supple Cardiovascular: regular rhythm Respiratory/Chest: lungs clear, normal breath sounds Abdomen: non tender Nikhil Woodward Jun 24, 2017 22:36
--- NOTE | 2017-06-24 23:47 | Cardiology Progress Note ---
Assessment/Plan Assessment/Plan 1. Sinus tachycardia due to sepsis, hypovolemia or hypoxemia. Normal LV systolic function with LVEF at 50%. 2. Small pericardial effusion. 3. Hypotension, resolved, due to sepsis. 4. Moderate pulmonary HTN could be due to HIV disease. Subjective Subjective Denies chest pain or SOB. No cardiac events reported. Objective Last 24 Hour Vital Signs Date Time Temp Pulse Resp B/P (MAP) Pulse Ox O2 Delivery O2 Flow Rate FiO2 06/24/17 20:00 98.2 112 18 123/85 98 06/24/17 16:00 97.9 80 20 105/59 100 06/24/17 12:00 96.3 65 20 123/78 99 06/24/17 08:00 96.3 65 20 123/78 99 06/24/17 03:55 97.0 54 20 123/75 99 Room Air 06/23/17 23:52 97.2 49 20 110/60 100 Room Air Intake and Output 06/23/17 06/24/17 19:00 07:00 Intake Total 480 ml Balance 480 ml Intake Oral 480 ml # Voids 2 3 # Bowel Movements 1 2D Echo: LVEF 50%, Mild AR, Grade II pseudo-normal LV physiology, RVSP 19 mmHg Laboratory Tests Test 06/24/17 06:00 C-Reactive Protein, Quantitative 1.7 mg/dL (0.00-0.90) H Treponema pallidum Ab (FTA-ABS) Pending Objective GENERAL: No acute respiratory distress HEENT: Atraumatic, normocephalic, PERRLA, EOMI. NECK: JVP < 5 cm, no carotid bruit. LUNGS: Decreased breath sounds. CARDIOVASCULAR: Regular rate rhythm, tachycardic, normal S1S2, no murmurs, gallops or rubs. ABDOMEN: Soft, nontender, and nondistended. EXTREMITIES: 1+ B/L edema. VIET SCHROEDER Jun 24, 2017 23:47
[2017-06-25 00:10] VITALS: BP 121/80
[2017-06-25 04:16] VITALS: BP 122/82
[2017-06-25 08:00] VITALS: BP 144/79
[2017-06-25] MEDS: Lactulose 10gm/15ml UDC ORAL SCH ×3 (09:00→17:26)
[2017-06-25] MEDS: Depakote ER 500mg tab ORAL SCH ×2 (09:00→21:00)
[2017-06-25] MEDS: Sodium Chloride 1gm Tab ORAL SCH ×3 (09:00→17:27)
[2017-06-25] MEDS: Docusate 100mg cap ORAL SCH ×2 (09:00→17:26)
[2017-06-25] MEDS: Dolutegravir Sodium 50mg tab ORAL SCH (09:52)
[2017-06-25] MEDS: Thiamine 100mg tab ORAL SCH (09:52)
[2017-06-25] MEDS: Rifabutin 150mg cap ORAL SCH (09:53)
[2017-06-25] MEDS: Azithromycin 600mg Tab ORAL SCH (09:55)
[2017-06-25] MEDS: Bactrim-DS 1 tab ORAL SCH (09:56)
[2017-06-25] MEDS: Magnesium Oxide 400mg tab ORAL SCH ×3 (09:57→18:18)
[2017-06-25] MEDS: Heparin 5000 units/ml inj SUBQ SCH ×2 (09:58→21:37)
[2017-06-25 12:00] VITALS: BP 117/80
--- NOTE | 2017-06-25 14:23 | GI Progress Note ---
Assessment/Plan Problems: (1) Generalized weakness ICD Codes: R53.1 - Weakness SNOMED: 73889696 (2) Anemia ICD Codes: D64.9 - Anemia, unspecified SNOMED: 660991203 (3) Severe protein-calorie malnutrition ICD Codes: E43 - Unspecified severe protein-calorie malnutrition SNOMED: 741366947 (4) Atypical pneumonia ICD Codes: J18.9 - Pneumonia, unspecified organism SNOMED: 811838828 (5) Protein calorie malnutrition ICD Codes: E46 - Unspecified protein-calorie malnutrition SNOMED: 814612018 Qualifiers: Qualified Codes: E44.0 - Moderate protein-calorie malnutrition (6) Diarrhea ICD Codes: R19.7 - Diarrhea, unspecified SNOMED: 72841331 Qualifiers: Qualified Codes: R19.7 - Diarrhea, unspecified Status: unchanged Status Narrative Discussed with Dr. Gamez. Assessment/Plan CT chest reviewed. cdiff negative iron levels unremarkable HIV positive airborne r/o TB >> negative KUB r/o chronic pancreatitis >> unremarkable OB stool r/o GI bleed >> negative Tissue Transglutaminase IgA r/o celiac >> negative Failure to thrive anorexia anemia - needs repeat H&H PNA MAC infection Diarrhea vs constipation fu ID, oncology recs regular diet, tolerating cont bowel regime monitor H&H, prn transfusions bowel regime ppi folate PO H2B fu labs Subjective Gastrointestinal/Abdominal: Reports: no symptoms Subjective participating with PT Objective Last 24 Hour Vital Signs Date Time Temp Pulse Resp B/P (MAP) Pulse Ox O2 Delivery O2 Flow Rate FiO2 06/25/17 08:00 79.0 90 18 144/79 100 06/25/17 08:00 97.9 90 18 144/79 06/25/17 04:16 97.9 85 18 122/82 99 06/25/17 00:10 97.6 82 19 121/80 100 06/24/17 20:00 98.2 112 18 123/85 98 06/24/17 16:00 97.9 80 20 105/59 100 Intake and Output 06/24/17 06/25/17 19:00 07:00 Intake Total 2580 ml Output Total 600 ml Balance 2580 ml -600 ml Intake Oral 2580 ml Output Urine Total 600 ml # Voids 2 2 # Bowel Movements 1 Height (Feet): 5 Height (Inches): 10.00 Weight (Pounds): 90 General Appearance: WD/WN, no apparent distress, alert, thin Cardiovascular: normal rate Respiratory/Chest: normal breath sounds, no respiratory distress Abdominal Exam: normal bowel sounds, non tender, soft Extremities: normal range of motion, non-tender Alyssa Felix N.P. Jun 25, 2017 14:23
[2017-06-25 16:00] VITALS: BP 114/68
--- NOTE | 2017-06-25 17:00 | Infectious Diseases Prog Note ---
Assessment/Plan Assessment/Plan Suspected Disseminated MAC- MAC isolated for sputum. Typically isolated pulmonary MAC infection is seen in immunocompetent patients. Given he is HIV with probably AIDS with a low CD4 as very low lymphocyte counts (CD4 unable to be calculated) and his clinical presentation of wt loss, intermittent fevers, leukopenia/anemia, pulmonary infiltrates are very suggestive of the diagnosis. Diagnosis is confirmed by either isolation of MAC from blood and/or bone marrow. So far bone marrow biopsy neg for MAC- however given his clinical presentation, MAC isolated from lungs, HIV/AIDS status will treat for disseminated MAC; await final AFB cx from blood and bone marrow biopsy -s/p bone marrow biopsy 06/18 -path: preliminary neg, neg AFB stains, neg granuloma, neg for lymphoma- increased iron storages -bacterial cx neg; fungal and AFB cx p Pneumonia. . Sp Cx : MSSA SP Rx - s/p Bronchoscopy 06/10: friable mucosa, mild mucoid secretions; cx normal [place] -BAL cytology: rare atypical cells. Neg GMS and PCP stain CT of Abd /Bilateral pulmonary alveolar infiltrates consistent with pneumonia.- patient not hypoxic, not febrile- lower suspicion PCP; PCP DFA neg AFBx 3 : Neg ( 3rd from 05/26 not in EMR ) now AFB Cx 06/16 05/25 : +MAC; MTB PCR : Neg T Spot : neg Crytpo and blastomycosis: JOHANNA Neg ; RF + histo ab, Cocci ab : neg CT: Extensive interstitial and airspace parenchymal disease, and honeycomb appearance of much of the lower lobe and right middle lobe interstitial component, HIV/AIDS: first test negative repeat, repeat +; VL 973,150; CD4 unable to be calculated due to low absolute lymphocyte count -repeat CD4 p -HIV genotype: no resistance identified on RT or PI -Hep a immune -Hep b not immune, neg hep C -RPR neg -GC/CL neg - HLA B27 + Chronic diarrhea resolved, now constipated Stool for ova and parasite ( ? sent ) stool Cx : neg ? pancreatic insufficiency due to chronic alcohol abuse. also possibly due to disseminated MAC Elevated ESR , CRP and RF JOHANNA : neg Leukopenia/anemia Anemia and leukopenia PLAN: -Continue tx for suspect disseminated MAC with Azithromycin 600mg qd, Rifabutin 300mg qd and Ethambutol 600mg qd #14 awaiting final AFB bone marrow cx- decision to continue tx if cultures negative up to his new to be outpatient HIV provider as bone marrow biopsy was negative for disseminated MAC -f/u AFB bcx (never collected; reordered 06/22) -for bone marrow biopsy final cx -review drug-drug interactions with any new meds - Continue Truvada and Dolutegravir ( started 06/19 ) -f/u BAL cx (fungal, AFB), -f/u repeat CD4 as lymphocyte count improving -continue Bactrim DS 1 tab qd for PCP ppx - disease case manager rn consulted to start working on HIV clinic to continue HIV and MAC to be set up prior to discharge; risk of readmission if not follow up with a HIV provider upon discharge. -pending discharge to [facility] 06/15 Bactrim high dose #4 06/05 SP Ancef d# 10 05/30 SP Zithromax d# 5 / 5 06/01 SP ( refusing) Flagyl d# 46 05/27 SP vancomycin, cefepime d# 5, Monitor CBC/CMP f/u Fungal and AFB blood Cx Discussed with RN Subjective Allergies: Coded Allergies: No Known Allergies (Unverified , 05/23/17) Subjective afebrile tolerating HIV and MAC tx Objective Vital Signs Last 24 Hour Vital Signs Date Time Temp Pulse Resp B/P (MAP) Pulse Ox O2 Delivery O2 Flow Rate FiO2 06/25/17 16:00 97.9 97 20 114/68 97 06/25/17 12:00 98.1 116 20 117/80 98 06/25/17 08:00 79.0 90 18 144/79 100 06/25/17 08:00 97.9 90 18 144/79 06/25/17 04:16 97.9 85 18 122/82 99 06/25/17 00:10 97.6 82 19 121/80 100 06/24/17 20:00 98.2 112 18 123/85 98 Height (Feet): 5 Height (Inches): 10.00 Weight (Pounds): 90 Objective General Appearance: no acute distress, cachetic HEENT: normocephalic, atraumatic, mucous membranes moist Respiratory/Chest: CTA x2 Cardiovascular: normal peripheral pulses, regular rhythm, regularly irregular Abdomen: normal bowel sounds, soft, non tender, no organomegaly, non distended Extremities: no cyanosis, no clubbing, no edema Current Medications Medications (Trade) Dose Ordered Sig/Anna Route PRN Reason Start Time Stop Time Status Last Admin Dose Admin Albuterol/ Ipratropium (Albuterol/ Ipratropium) 3 ml Q6HRT HHN 06/11/17 13:00 06/16/17 23:59 06/15/17 23:54 Azithromycin (Zithromax) 600 mg DAILY ORAL 06/20/17 13:00 07/25/17 12:59 06/25/17 09:55 Divalproex Sodium (Depakote ER) 1,000 mg EVERY 12 HOURS ORAL 05/29/17 09:00 06/28/17 08:59 06/24/17 09:18 Docusate Sodium (Colace) 100 mg TWICE A DAY ORAL 06/08/17 18:00 07/08/17 17:59 06/11/17 10:03 Dolutegravir Sodium (Tivicay) 50 mg DAILY ORAL 06/19/17 09:00 07/19/17 08:59 06/25/17 09:52 Emtricitabine/ Tenofovir (Truvada 200/ 300mg) 1 tab DAILY ORAL 06/19/17 11:00 07/19/17 10:59 06/25/17 10:15 Ethambutol HCl (Myambutol) 600 mg DAILY ORAL 06/12/17 14:45 07/12/17 14:44 06/25/17 09:00 Famotidine (Pepcid) 20 mg QHS ORAL 06/23/17 21:00 07/23/17 20:59 Fluoxetine HCl (PROzac) 20 mg DAILY ORAL 05/27/17 09:00 06/26/17 08:59 06/25/17 09:56 Folic Acid (Folate) 1 mg DAILY ORAL 05/27/17 09:00 06/26/17 08:59 06/25/17 09:52 Heparin Sodium (Porcine) (Heparin 5000 units/ml) 5,000 units EVERY 12 HOURS SUBQ 06/23/17 09:00 07/23/17 08:59 06/25/17 09:58 Lactulose (Cephulac) 10 gm THREE TIMES A DAY ORAL 06/08/17 13:00 07/08/17 12:59 06/11/17 10:05 Magnesium Oxide (Mag-Ox 400mg) 500 mg THREE TIMES A DAY ORAL 06/12/17 19:30 07/12/17 19:29 06/25/17 13:40 Multivitamins (Multivitamins) 1 tab DAILY ORAL 05/31/17 09:00 06/30/17 08:59 06/25/17 09:55 Prednisone (predniSONE) 40 mg DAILY ORAL 06/19/17 10:00 07/19/17 09:59 06/25/17 09:57 Rifabutin (Mycobutin) 300 mg DAILY ORAL 06/12/17 14:45 07/12/17 14:44 06/25/17 09:53 Sodium Chloride (NaCl) 1 gm THREE TIMES A DAY ORAL 06/21/17 09:00 07/21/17 08:59 06/24/17 17:21 Thiamine HCl (Vitamin B1) 100 mg DAILY ORAL 05/31/17 09:00 06/30/17 08:59 06/25/17 09:52 Trimethoprim/ Sulfamethoxazole (Bactrim-DS) 1 ea DAILY ORAL 06/24/17 14:00 07/01/17 13:59 06/25/17 09:56 Haydee Tucker M.D. Jun 25, 2017 17:00
--- NOTE | 2017-06-25 19:15 | Pulmonology Progress Note ---
Assessment/Plan Problems: (1) Atypical pneumonia (2) Severe protein-calorie malnutrition (3) Interstitial lung disease (4) Diarrhea Assessment/Plan Continue MAC treatment Pathology pending DC planning soon PT/OT evaluation again Will need snif placement Subjective ROS Limited/Unobtainable: No Constitutional: Reports: no symptoms HEENT: Repors: no symptoms Allergies: Coded Allergies: No Known Allergies (Unverified , 05/23/17) Objective Last 24 Hour Vital Signs Date Time Temp Pulse Resp B/P (MAP) Pulse Ox O2 Delivery O2 Flow Rate FiO2 06/25/17 16:00 97.9 97 20 114/68 97 06/25/17 12:00 98.1 116 20 117/80 98 06/25/17 08:00 79.0 90 18 144/79 100 06/25/17 08:00 97.9 90 18 144/79 06/25/17 04:16 97.9 85 18 122/82 99 06/25/17 00:10 97.6 82 19 121/80 100 06/24/17 20:00 98.2 112 18 123/85 98 Intake and Output 06/24/17 06/25/17 19:00 07:00 Intake Total 2580 ml Output Total 600 ml Balance 2580 ml -600 ml Intake Oral 2580 ml Output Urine Total 600 ml # Voids 2 2 # Bowel Movements 1 General Appearance: WD/WN HEENT: normocephalic Respiratory/Chest: chest wall non-tender, lungs clear Cardiovascular: normal peripheral pulses, normal rate Abdomen: normal bowel sounds, soft, non tender Genitourinary: normal external genitalia Skin: no rash, no ulcers Neurologic/Psychiatric: station usher II-XII 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 Lymphatic: no neck adenopathy Current Medications Medications (Trade) Dose Ordered Sig/Anna Route PRN Reason Start Time Stop Time Status Last Admin Dose Admin Albuterol/ Ipratropium (Albuterol/ Ipratropium) 3 ml Q6HRT HHN 06/11/17 13:00 06/16/17 23:59 06/15/17 23:54 Azithromycin (Zithromax) 600 mg DAILY ORAL 06/20/17 13:00 07/25/17 12:59 06/25/17 09:55 Divalproex Sodium (Depakote ER) 1,000 mg EVERY 12 HOURS ORAL 05/29/17 09:00 06/28/17 08:59 06/24/17 09:18 Docusate Sodium (Colace) 100 mg TWICE A DAY ORAL 06/08/17 18:00 07/08/17 17:59 06/11/17 10:03 Dolutegravir Sodium (Tivicay) 50 mg DAILY ORAL 06/19/17 09:00 07/19/17 08:59 06/25/17 09:52 Emtricitabine/ Tenofovir (Truvada 200/ 300mg) 1 tab DAILY ORAL 06/19/17 11:00 07/19/17 10:59 06/25/17 10:15 Ethambutol HCl (Myambutol) 600 mg DAILY ORAL 06/12/17 14:45 07/12/17 14:44 06/25/17 09:00 Famotidine (Pepcid) 20 mg QHS ORAL 06/23/17 21:00 07/23/17 20:59 Fluoxetine HCl (PROzac) 20 mg DAILY ORAL 05/27/17 09:00 06/26/17 08:59 06/25/17 09:56 Folic Acid (Folate) 1 mg DAILY ORAL 05/27/17 09:00 06/26/17 08:59 06/25/17 09:52 Heparin Sodium (Porcine) (Heparin 5000 units/ml) 5,000 units EVERY 12 HOURS SUBQ 06/23/17 09:00 07/23/17 08:59 06/25/17 09:58 Lactulose (Cephulac) 10 gm THREE TIMES A DAY ORAL 06/08/17 13:00 07/08/17 12:59 06/11/17 10:05 Magnesium Oxide (Mag-Ox 400mg) 500 mg THREE TIMES A DAY ORAL 06/12/17 19:30 07/12/17 19:29 06/25/17 18:18 Multivitamins (Multivitamins) 1 tab DAILY ORAL 05/31/17 09:00 06/30/17 08:59 06/25/17 09:55 Prednisone (predniSONE) 40 mg DAILY ORAL 06/19/17 10:00 07/19/17 09:59 06/25/17 09:57 Rifabutin (Mycobutin) 300 mg DAILY ORAL 06/12/17 14:45 07/12/17 14:44 06/25/17 09:53 Sodium Chloride (NaCl) 1 gm THREE TIMES A DAY ORAL 06/21/17 09:00 07/21/17 08:59 06/24/17 17:21 Thiamine HCl (Vitamin B1) 100 mg DAILY ORAL 05/31/17 09:00 06/30/17 08:59 06/25/17 09:52 Trimethoprim/ Sulfamethoxazole (Bactrim-DS) 1 ea DAILY ORAL 06/24/17 14:00 07/01/17 13:59 06/25/17 09:56 TAMMIE MARY Jun 25, 2017 19:15
--- NOTE | 2017-06-25 19:20 | Cardiology Progress Note ---
Assessment/Plan Assessment/Plan 1. Sinus tachycardia, start small dose of Bystolic, LVEF is approximately 50%. 2. Small pericardial effusion. 3. Hypotension, resolved, due to sepsis. 4. Moderate pulmonary HTN could be due to HIV disease. Subjective Subjective Not on telemetry. No cardiac events reported. Objective Last 24 Hour Vital Signs Date Time Temp Pulse Resp B/P (MAP) Pulse Ox O2 Delivery O2 Flow Rate FiO2 06/25/17 16:00 97.9 97 20 114/68 97 06/25/17 12:00 98.1 116 20 117/80 98 06/25/17 08:00 79.0 90 18 144/79 100 06/25/17 08:00 97.9 90 18 144/79 06/25/17 04:16 97.9 85 18 122/82 99 06/25/17 00:10 97.6 82 19 121/80 100 06/24/17 20:00 98.2 112 18 123/85 98 Intake and Output 06/24/17 06/25/17 19:00 07:00 Intake Total 2580 ml Output Total 600 ml Balance 2580 ml -600 ml Intake Oral 2580 ml Output Urine Total 600 ml # Voids 2 2 # Bowel Movements 1 2D Echo: LVEF 50%, Mild AR, Grade II pseudo-normal LV physiology, RVSP 19 mmHg Objective GENERAL: No acute respiratory distress HEENT: Atraumatic, normocephalic, PERRLA, EOMI. NECK: JVP < 5 cm, no carotid bruit. LUNGS: Decreased breath sounds. CARDIOVASCULAR: Regular rate rhythm, tachycardic, normal S1S2, no murmurs, gallops or rubs. ABDOMEN: Soft, nontender, and nondistended. EXTREMITIES: 1+ B/L edema. VIET SCHROEDER Jun 25, 2017 19:20
[2017-06-25 20:00] VITALS: BP 133/78
[2017-06-25] MEDS: Bystolic 2.5mg Tab ORAL SCH (21:34)
[2017-06-26] VITALS: BP_SYST 103; BP_SYST 136; BP_DIAS 76; BP_DIAS 87
--- NOTE | 2017-06-26 00:51 | General Progress Note ---
Assessment/Plan Status: stable, unchanged Assessment/Plan ASSESSMENT/PLAN # Leukopenia 2/2 HIV --> unfortunately has refused bone marrow biopsy, have explained him the risks and of potentially missing a diagnosis such as lymphoma --> bone marrow biopsy completed 06/18/17 and preliminary is negative, --> final results of bone marrow biopsy completed today 06/23, pathology revealing neg afb strains, neg granuloma, neg lymphoma, increased iron storages # Anemia 2/2 HIV, watch counts, transfuse if hgb below 7 --> hemoglobin has been >7 --> blood transfusion not required today -->Low folate level, continue PO folate # Anemia 2/2 folic acid deficiency --> on folate p.o. # HIV with very low CD4 count --> vl is high # AFB + for Mycobacterium avium. To be confirmed with bone marrow bx 06/17/17 --> on abx for disseminated MAC # MSSA PNA # Interstitial lung disease --> may require lung biopsy # acute hypoxemic RF # severe protein calorie malnutrition # diarrhea, better. C. diff negative. GI following # alcohol dependence # depression Subjective Date patient seen: Jun 25, 2017 Constitutional: Denies: no symptoms, chills, diaphoresis, fever, malaise, weakness, other HEENT: Denies: no symptoms, eye pain, blurred vision, tearing, double vision, ear pain, ear discharge, nose pain, nose congestion, throat pain, throat swelling, mouth pain, mouth swelling, other Cardiovascular: Denies: no symptoms, chest pain, edema, irregular heart rate, lightheadedness, palpitations, syncope, other Respiratory: Denies: no symptoms, cough, orthopnea, shortness of breath, SOB with excertion, SOB at rest, sputum, stridor, wheezing, other Gastrointestinal/Abdominal: Denies: no symptoms, abdomen distended, abdominal pain, black stools, tarry stools, blood in stool, constipated, diarrhea, difficulty swallowing, nausea, poor appetite, poor fluid intake, rectal bleeding , vomiting, other Genitourinary: Denies: no symptoms, burning, discharge, frequency, flank pain, hematuria, incontinence, pain, urgency, other Hematologic/Lymphatic: Reports: anemia Allergies: Coded Allergies: No Known Allergies (Unverified , 05/23/17) Subjective No new events overnight. No fever or chills. Objective Last 24 Hour Vital Signs Date Time Temp Pulse Resp B/P (MAP) Pulse Ox O2 Delivery O2 Flow Rate FiO2 06/26/17 00:00 97.8 84 18 136/87 100 06/25/17 20:00 97.8 88 18 133/78 100 06/25/17 16:00 97.9 97 20 114/68 97 06/25/17 12:00 98.1 116 20 117/80 98 06/25/17 08:00 79.0 90 18 144/79 100 06/25/17 08:00 97.9 90 18 144/79 06/25/17 04:16 97.9 85 18 122/82 99 Intake and Output 06/25/17 06/26/17 19:00 07:00 Intake Total 1600 ml Balance 1600 ml Intake Oral 1600 ml # Voids 6 # Bowel Movements 1 Height (Feet): 5 Height (Inches): 10.00 Weight (Pounds): 90 General Appearance: no apparent distress EENT: normal ENT inspection Cardiovascular: normal rate, regular rhythm Abdomen: non tender, no organomegaly Edema: trace edema Nikhil Woodward Jun 26, 2017 00:50
[2017-06-26 04:00] VITALS: BP 121/78
[2017-06-26 07:46] LABS: BASOPHILS % (AUTO) 1.4 % (0.0-2.0); EOSINOPHILS % (AUTO) 0.8 % (0.0-3.0); HEMATOCRIT 26.6 % (42.0-52.0); HEMOGLOBIN 9.2 G/DL (14.2-18.0); LYMPHOCYTES % (AUTO) 14.3 % (20.0-45.0); MEAN CORPUSCULAR VOLUME 90 FL (80-99); MONOCYTES % (AUTO) 8.9 % (1.0-10.0); NEUTROPHILS % (AUTO) 74.5 % (45.0-75.0); PLATELET COUNT 221 K/UL (150-450); RED BLOOD COUNT 2.96 M/UL (4.70-6.10); RED CELL DISTRIBUTION WIDTH 14.7 % (11.6-14.8); WHITE BLOOD COUNT 6.5 K/UL (4.8-10.8)
[2017-06-26 07:53] LABS: ALANINE AMINOTRANSFERASE 23 U/L (12-78); ALBUMIN 1.7 G/DL (3.4-5.0); ALBUMIN/GLOBULIN RATIO 0.3 (1.0-2.7); ALKALINE PHOSPHATASE 124 U/L (46-116); ANION GAP 4 mmol/L (5-15); ASPARTATE AMINO TRANSFERASE 16 U/L (15-37); BILIRUBIN,TOTAL 0.1 MG/DL (0.2-1.0); BLOOD UREA NITROGEN 19 mg/dL (7-18); CALCIUM 8.5 MG/DL (8.5-10.1); CARBON DIOXIDE 30 MMOL/L (21-32); CHLORIDE 105 MMOL/L (98-107); CREATININE 0.8 MG/DL (0.55-1.30); POTASSIUM 3.9 MMOL/L (3.5-5.1); SODIUM 139 MMOL/L (136-145)
[2017-06-26 08:00] VITALS: BP 112/67
[2017-06-26 08:14] LABS: PHOSPHORUS 0.5 MG/DL (2.5-4.9)
[2017-06-26] MEDS: Depakote ER 500mg tab ORAL SCH ×2 (09:00→20:17)
[2017-06-26] MEDS: Sodium Chloride 1gm Tab ORAL SCH ×3 (09:00→18:00)
[2017-06-26] MEDS: Docusate 100mg cap ORAL SCH ×2 (09:00→18:00)
[2017-06-26] MEDS: Lactulose 10gm/15ml UDC ORAL SCH ×3 (09:00→18:00)
[2017-06-26] MEDS: Rifabutin 150mg cap ORAL SCH (09:37)
[2017-06-26] MEDS: Heparin 5000 units/ml inj SUBQ SCH ×2 (09:37→20:50)
[2017-06-26] MEDS: Thiamine 100mg tab ORAL SCH (09:38)
[2017-06-26] MEDS: Bactrim-DS 1 tab ORAL SCH (09:38)
[2017-06-26] MEDS: Bystolic 2.5mg Tab ORAL SCH (09:39)
[2017-06-26] MEDS: Magnesium Oxide 400mg tab ORAL SCH ×3 (09:39→18:20)
[2017-06-26] MEDS: Azithromycin 600mg Tab ORAL SCH (09:39)
[2017-06-26] MEDS: Dolutegravir Sodium 50mg tab ORAL SCH (09:39)
[2017-06-26] MEDS ORDERED: Sodium Phosphate 30 MM in NS 275 ML IVPB ONE (11:00)
[2017-06-26 12:00] VITALS: BP 123/75
--- NOTE | 2017-06-26 13:06 | Wound Care Consultation ---
Wound Assessment Wound Assessment : Wound Number: 1 Wound Present on Admission: No New Wound: Yes Status Change of Wound: No Wound Location Body Site Modif: mid Wound Location Body Site: thoracic spine Wound Type: traumatic injury Lesly Test: Does not Lesly Traumatic Injury Wounds: Abrasion Wound Thickness: Partial Thickness Wound Length: 5.5 Wound Width: 2.0 Wound Depth: 0.1 Percent of Wound [place]/Red: 100 Wound Drainage Amount: None Wound Drainage Odor: None/Absent Tissue Surrounding Wound: Intact Wound General Appearance: Reddened Wound Comment #1 S/P fall traumatic injury with partial thickness loss Recommendation -Cleanse with saline, pat dry, apply Adaptic, cover with Bordered gauze PRN soiled/dislodged -Optimize nutrition -Assess and f/u accordingly for any changes BEBA LOPEZ RN Jun 26, 2017 13:06
--- NOTE | 2017-06-26 13:07 | GI Progress Note ---
Assessment/Plan Problems: (1) Generalized weakness ICD Codes: R53.1 - Weakness SNOMED: 45300867 (2) Anemia ICD Codes: D64.9 - Anemia, unspecified SNOMED: 224594936 (3) Severe protein-calorie malnutrition ICD Codes: E43 - Unspecified severe protein-calorie malnutrition SNOMED: 898485160 (4) Atypical pneumonia ICD Codes: J18.9 - Pneumonia, unspecified organism SNOMED: 826457973 (5) Protein calorie malnutrition ICD Codes: E46 - Unspecified protein-calorie malnutrition SNOMED: 097010191 Qualifiers: Qualified Codes: E44.0 - Moderate protein-calorie malnutrition (6) Diarrhea ICD Codes: R19.7 - Diarrhea, unspecified SNOMED: 37439578 Qualifiers: Qualified Codes: R19.7 - Diarrhea, unspecified Status: stable Status Narrative Discussed with Dr. Gamez. Assessment/Plan CT chest reviewed. cdiff negative iron levels unremarkable HIV positive airborne r/o TB >> negative KUB r/o chronic pancreatitis >> unremarkable OB stool r/o GI bleed >> negative Tissue Transglutaminase IgA r/o celiac >> negative Failure to thrive anorexia anemia - needs repeat H&H PNA MAC infection Diarrhea vs constipation fu ID, oncology recs regular diet, tolerating cont bowel regime monitor H&H, prn transfusions bowel regime ppi folate PO H2B fu labs Subjective Subjective participating with PT Objective Last 24 Hour Vital Signs Date Time Temp Pulse Resp B/P (MAP) Pulse Ox O2 Delivery O2 Flow Rate FiO2 06/26/17 08:00 97.7 91 20 112/67 100 Room Air 06/26/17 04:00 97.9 78 20 121/78 100 Room Air 06/26/17 00:00 97.8 84 18 136/87 100 06/25/17 20:00 97.8 88 18 133/78 100 06/25/17 16:00 97.9 97 20 114/68 97 Intake and Output 06/25/17 06/26/17 19:00 07:00 Intake Total 1600 ml Output Total 200 ml Balance 1600 ml -200 ml Intake Oral 1600 ml Output Urine Total 200 ml # Voids 6 # Bowel Movements 1 Laboratory Tests Test 06/26/17 06:40 White Blood Count 6.5 K/UL (4.8-10.8) Red Blood Count 2.96 M/UL (4.70-6.10) L Hemoglobin 9.2 G/DL (14.2-18.0) L Hematocrit 26.6 % (42.0-52.0) L Mean Corpuscular Volume 90 FL (80-99) Mean Corpuscular Hemoglobin 31.0 PG (27.0-31.0) Mean Corpuscular Hemoglobin Concent 34.6 G/DL (32.0-36.0) Red Cell Distribution Width 14.7 % (11.6-14.8) Platelet Count 221 K/UL (150-450) Mean Platelet Volume 7.5 FL (6.5-10.1) Neutrophils (%) (Auto) 74.5 % (45.0-75.0) Lymphocytes (%) (Auto) 14.3 % (20.0-45.0) L Monocytes (%) (Auto) 8.9 % (1.0-10.0) Eosinophils (%) (Auto) 0.8 % (0.0-3.0) Basophils (%) (Auto) 1.4 % (0.0-2.0) Sodium Level 139 MMOL/L (136-145) Potassium Level 3.9 MMOL/L (3.5-5.1) Chloride Level 105 MMOL/L (98-107) Carbon Dioxide Level 30 MMOL/L (21-32) Anion Gap 4 mmol/L (5-15) L Blood Urea Nitrogen 19 mg/dL (7-18) H Creatinine 0.8 MG/DL (0.55-1.30) Estimat Glomerular Filtration Rate > 60 mL/min (>60) Glucose Level 73 MG/DL (74-106) L Calcium Level 8.5 MG/DL (8.5-10.1) Phosphorus Level 0.5 MG/DL (2.5-4.9) *L Magnesium Level 1.4 MG/DL (1.8-2.4) L Total Bilirubin 0.1 MG/DL (0.2-1.0) L Aspartate Amino Transf (AST/SGOT) 16 U/L (15-37) Alanine Aminotransferase (ALT/SGPT) 23 U/L (12-78) Alkaline Phosphatase 124 U/L (46-116) H Total Protein 7.5 G/DL (6.4-8.2) Albumin 1.7 G/DL (3.4-5.0) L Globulin 5.8 g/dL Albumin/Globulin Ratio 0.3 (1.0-2.7) L Height (Feet): 5 Height (Inches): 10.00 Weight (Pounds): 90 General Appearance: WD/WN, no apparent distress, alert Cardiovascular: normal rate Respiratory/Chest: normal breath sounds, no respiratory distress Abdominal Exam: normal bowel sounds, non tender, soft Extremities: normal range of motion, non-tender Alyssa Felix N.P. Jun 26, 2017 13:07
[2017-06-26] MEDS: Phospha 250 Neutral tab ORAL SCH ×2 (13:58→18:23)
[2017-06-26 16:00] VITALS: BP 140/91
--- NOTE | 2017-06-26 17:05 | Infectious Diseases Prog Note ---
Assessment/Plan Assessment/Plan Suspected Disseminated MAC- MAC isolated for sputum. Typically isolated pulmonary MAC infection is seen in immunocompetent patients. Given he is HIV with probably AIDS with a low CD4 as very low lymphocyte counts (CD4 unable to be calculated) and his clinical presentation of wt loss, intermittent fevers, leukopenia/anemia, pulmonary infiltrates are very suggestive of the diagnosis. Diagnosis is confirmed by either isolation of MAC from blood and/or bone marrow. So far bone marrow biopsy neg for MAC- however given his clinical presentation, MAC isolated from lungs, HIV/AIDS status will treat for disseminated MAC; await final AFB cx from blood and bone marrow biopsy -s/p bone marrow biopsy 06/18 -path: preliminary neg, neg AFB stains, neg granuloma, neg for lymphoma- increased iron storages -bacterial cx neg; fungal and AFB cx p Pneumonia. . Sp Cx : MSSA SP Rx - s/p Bronchoscopy 06/10: friable mucosa, mild mucoid secretions; cx normal [place] -BAL cytology: rare atypical cells. Neg GMS and PCP stain CT of Abd /Bilateral pulmonary alveolar infiltrates consistent with pneumonia.- patient not hypoxic, not febrile- lower suspicion PCP; PCP DFA neg AFBx 3 : Neg ( 3rd from 05/26 not in EMR ) now AFB Cx 06/16 05/25 : +MAC; MTB PCR : Neg T Spot : neg Crytpo and blastomycosis: JOHANNA Neg ; RF + histo ab, Cocci ab : neg CT: Extensive interstitial and airspace parenchymal disease, and honeycomb appearance of much of the lower lobe and right middle lobe interstitial component, HIV/AIDS: first test negative repeat, repeat +; VL 973,150; CD4 unable to be calculated due to low absolute lymphocyte count -repeat CD4 p -HIV genotype: no resistance identified on RT or PI -Hep a immune -Hep b not immune, neg hep C -RPR neg -GC/CL neg - HLA B27 + Chronic diarrhea resolved, now constipated Stool for ova and parasite ( ? sent ) stool Cx : neg ? pancreatic insufficiency due to chronic alcohol abuse. also possibly due to disseminated MAC Elevated ESR , CRP and RF JOHANNA : neg Leukopenia/anemia Anemia and leukopenia PLAN: -Continue tx for suspect disseminated MAC with Azithromycin 600mg qd, Rifabutin 300mg qd and Ethambutol 600mg qd #15 awaiting final AFB bone marrow cx- decision to continue tx if cultures negative up to his new to be outpatient HIV provider as bone marrow biopsy was negative for disseminated MAC -f/u AFB bcx (never collected; reordered 06/22) -for bone marrow biopsy final cx -review drug-drug interactions with any new meds - Continue Truvada and Dolutegravir ( started 06/19 ) -f/u BAL cx (fungal, AFB), -f/u repeat CD4 as lymphocyte count improving -continue Bactrim DS 1 tab qd for PCP ppx - case picker consulted to start working on HIV clinic to continue HIV and MAC to be set up prior to discharge; risk of readmission if not follow up with a HIV provider upon discharge. -pending discharge to [facility] 06/15 Bactrim high dose #4 06/05 SP Ancef d# 10 05/30 SP Zithromax d# 5 / 5 06/01 SP ( refusing) Flagyl d# 46 05/27 SP vancomycin, cefepime d# 5, Monitor CBC/CMP f/u Fungal and AFB blood Cx Discussed with RN Subjective Allergies: Coded Allergies: No Known Allergies (Unverified , 05/23/17) Subjective afebrile tolerating HIV and MAC tx Objective Vital Signs Last 24 Hour Vital Signs Date Time Temp Pulse Resp B/P (MAP) Pulse Ox O2 Delivery O2 Flow Rate FiO2 06/26/17 12:00 97.7 89 20 123/75 100 Room Air 06/26/17 08:00 97.7 91 20 112/67 100 Room Air 06/26/17 04:00 97.9 78 20 121/78 100 Room Air 06/26/17 00:00 97.8 84 18 136/87 100 06/25/17 20:00 97.8 88 18 133/78 100 Height (Feet): 5 Height (Inches): 10.00 Weight (Pounds): 90 Objective General Appearance: no acute distress, cachetic HEENT: normocephalic, atraumatic, mucous membranes moist Respiratory/Chest: CTA x2 Cardiovascular: normal peripheral pulses, regular rhythm, regularly irregular Abdomen: normal bowel sounds, soft, non tender, no organomegaly, non distended Extremities: no cyanosis, no clubbing, no edema Laboratory Tests Test 06/26/17 06:40 White Blood Count 6.5 K/UL (4.8-10.8) Red Blood Count 2.96 M/UL (4.70-6.10) L Hemoglobin 9.2 G/DL (14.2-18.0) L Hematocrit 26.6 % (42.0-52.0) L Mean Corpuscular Volume 90 FL (80-99) Mean Corpuscular Hemoglobin 31.0 PG (27.0-31.0) Mean Corpuscular Hemoglobin Concent 34.6 G/DL (32.0-36.0) Red Cell Distribution Width 14.7 % (11.6-14.8) Platelet Count 221 K/UL (150-450) Mean Platelet Volume 7.5 FL (6.5-10.1) Neutrophils (%) (Auto) 74.5 % (45.0-75.0) Lymphocytes (%) (Auto) 14.3 % (20.0-45.0) L Monocytes (%) (Auto) 8.9 % (1.0-10.0) Eosinophils (%) (Auto) 0.8 % (0.0-3.0) Basophils (%) (Auto) 1.4 % (0.0-2.0) Sodium Level 139 MMOL/L (136-145) Potassium Level 3.9 MMOL/L (3.5-5.1) Chloride Level 105 MMOL/L (98-107) Carbon Dioxide Level 30 MMOL/L (21-32) Anion Gap 4 mmol/L (5-15) L Blood Urea Nitrogen 19 mg/dL (7-18) H Creatinine 0.8 MG/DL (0.55-1.30) Estimat Glomerular Filtration Rate > 60 mL/min (>60) Glucose Level 73 MG/DL (74-106) L Calcium Level 8.5 MG/DL (8.5-10.1) Phosphorus Level 0.5 MG/DL (2.5-4.9) *L Magnesium Level 1.4 MG/DL (1.8-2.4) L Total Bilirubin 0.1 MG/DL (0.2-1.0) L Aspartate Amino Transf (AST/SGOT) 16 U/L (15-37) Alanine Aminotransferase (ALT/SGPT) 23 U/L (12-78) Alkaline Phosphatase 124 U/L (46-116) H Total Protein 7.5 G/DL (6.4-8.2) Albumin 1.7 G/DL (3.4-5.0) L Globulin 5.8 g/dL Albumin/Globulin Ratio 0.3 (1.0-2.7) L Current Medications Medications (Trade) Dose Ordered Sig/Anna Route PRN Reason Start Time Stop Time Status Last Admin Dose Admin Albuterol/ Ipratropium (Albuterol/ Ipratropium) 3 ml Q6HRT HHN 06/11/17 13:00 06/16/17 23:59 06/15/17 23:54 Azithromycin (Zithromax) 600 mg DAILY ORAL 06/20/17 13:00 07/25/17 12:59 06/26/17 09:39 Divalproex Sodium (Depakote ER) 1,000 mg EVERY 12 HOURS ORAL 05/29/17 09:00 06/28/17 08:59 06/24/17 09:18 Docusate Sodium (Colace) 100 mg TWICE A DAY ORAL 06/08/17 18:00 07/08/17 17:59 06/11/17 10:03 Dolutegravir Sodium (Tivicay) 50 mg DAILY ORAL 06/19/17 09:00 07/19/17 08:59 06/26/17 09:39 Emtricitabine/ Tenofovir (Truvada 200/ 300mg) 1 tab DAILY ORAL 06/19/17 11:00 07/19/17 10:59 06/26/17 09:38 Ethambutol HCl (Myambutol) 600 mg DAILY ORAL 06/12/17 14:45 07/12/17 14:44 06/26/17 09:39 Famotidine (Pepcid) 20 mg QHS ORAL 06/23/17 21:00 07/23/17 20:59 Heparin Sodium (Porcine) (Heparin 5000 units/ml) 5,000 units EVERY 12 HOURS SUBQ 06/23/17 09:00 07/23/17 08:59 06/26/17 09:37 Lactulose (Cephulac) 10 gm THREE TIMES A DAY ORAL 06/08/17 13:00 07/08/17 12:59 06/11/17 10:05 Magnesium Oxide (Mag-Ox 400mg) 500 mg THREE TIMES A DAY ORAL 06/12/17 19:30 07/12/17 19:29 06/26/17 13:58 Multivitamins (Multivitamins) 1 tab DAILY ORAL 05/31/17 09:00 06/30/17 08:59 06/26/17 09:37 Nebivolol (Bystolic) 2.5 mg DAILY ORAL 06/25/17 21:00 07/25/17 20:59 06/26/17 09:39 Phosphorus (Phospha 250 Neutral) 500 mg THREE TIMES A DAY ORAL 06/26/17 13:00 07/26/17 12:59 06/26/17 13:58 Prednisone (predniSONE) 40 mg DAILY ORAL 06/19/17 10:00 07/19/17 09:59 06/26/17 09:38 Rifabutin (Mycobutin) 300 mg DAILY ORAL 06/12/17 14:45 07/12/17 14:44 06/26/17 09:37 Sodium Chloride (NaCl) 1 gm THREE TIMES A DAY ORAL 06/21/17 09:00 07/21/17 08:59 06/24/17 17:21 Thiamine HCl (Vitamin B1) 100 mg DAILY ORAL 05/31/17 09:00 06/30/17 08:59 06/26/17 09:38 Trimethoprim/ Sulfamethoxazole (Bactrim-DS) 1 ea DAILY ORAL 06/24/17 14:00 07/01/17 13:59 06/26/17 09:38 Haydee Tucker M.D. Jun 26, 2017 17:05
--- NOTE | 2017-06-26 17:08 | Pulmonology Progress Note ---
Assessment/Plan Problems: (1) Atypical pneumonia (2) Severe protein-calorie malnutrition (3) Interstitial lung disease (4) Diarrhea Assessment/Plan Continue MAC treatment Pathology pending DC planning soon PT/OT evaluation again Will need snif placement getting stronger, might be able to go home soon. Subjective ROS Limited/Unobtainable: No Constitutional: Reports: no symptoms HEENT: Repors: no symptoms Respiratory: Reports: no symptoms Allergies: Coded Allergies: No Known Allergies (Unverified , 05/23/17) Objective Last 24 Hour Vital Signs Date Time Temp Pulse Resp B/P (MAP) Pulse Ox O2 Delivery O2 Flow Rate FiO2 06/26/17 12:00 97.7 89 20 123/75 100 Room Air 06/26/17 08:00 97.7 91 20 112/67 100 Room Air 06/26/17 04:00 97.9 78 20 121/78 100 Room Air 06/26/17 00:00 97.8 84 18 136/87 100 06/25/17 20:00 97.8 88 18 133/78 100 Intake and Output 06/25/17 06/26/17 19:00 07:00 Intake Total 1600 ml Output Total 200 ml Balance 1600 ml -200 ml Intake Oral 1600 ml Output Urine Total 200 ml # Voids 6 # Bowel Movements 1 General Appearance: WD/WN HEENT: normocephalic, atraumatic Respiratory/Chest: chest wall non-tender, lungs clear Cardiovascular: normal peripheral pulses, regular rhythm Abdomen: normal bowel sounds, no organomegaly Extremities: no cyanosis Skin: no rash, no lesions Laboratory Tests 06/26/17 06:40: White Blood Count 6.5, Red Blood Count 2.96L, Hemoglobin 9.2L, Hematocrit 26.6L , Mean Corpuscular Volume 90, Mean Corpuscular Hemoglobin 31.0, Mean Corpuscular Hemoglobin Concent 34.6, Red Cell Distribution Width 14.7, Platelet Count 221, Mean Platelet Volume 7.5, Neutrophils (%) (Auto) 74.5, Lymphocytes (% ) (Auto) 14.3L, Monocytes (%) (Auto) 8.9, Eosinophils (%) (Auto) 0.8, Basophils (%) (Auto) 1.4, Sodium Level 139, Potassium Level 3.9, Chloride Level 105, Carbon Dioxide Level 30, Anion Gap 4L, Blood Urea Nitrogen 19H, Creatinine 0.8, Estimat Glomerular Filtration Rate > 60, Glucose Level 73L, Calcium Level 8.5, Phosphorus Level 0.5*L, Magnesium Level 1.4L, Total Bilirubin 0.1L, Aspartate Amino Transf (AST/SGOT) 16, Alanine Aminotransferase (ALT/SGPT) 23, Alkaline Phosphatase 124H, Total Protein 7.5, Albumin 1.7L, Globulin 5.8, Albumin/ Globulin Ratio 0.3L Current Medications Medications (Trade) Dose Ordered Sig/Anna Route PRN Reason Start Time Stop Time Status Last Admin Dose Admin Albuterol/ Ipratropium (Albuterol/ Ipratropium) 3 ml Q6HRT HHN 06/11/17 13:00 06/16/17 23:59 06/15/17 23:54 Azithromycin (Zithromax) 600 mg DAILY ORAL 06/20/17 13:00 07/25/17 12:59 06/26/17 09:39 Divalproex Sodium (Depakote ER) 1,000 mg EVERY 12 HOURS ORAL 05/29/17 09:00 06/28/17 08:59 06/24/17 09:18 Docusate Sodium (Colace) 100 mg TWICE A DAY ORAL 06/08/17 18:00 07/08/17 17:59 06/11/17 10:03 Dolutegravir Sodium (Tivicay) 50 mg DAILY ORAL 06/19/17 09:00 07/19/17 08:59 06/26/17 09:39 Emtricitabine/ Tenofovir (Truvada 200/ 300mg) 1 tab DAILY ORAL 06/19/17 11:00 07/19/17 10:59 06/26/17 09:38 Ethambutol HCl (Myambutol) 600 mg DAILY ORAL 06/12/17 14:45 07/12/17 14:44 06/26/17 09:39 Famotidine (Pepcid) 20 mg QHS ORAL 06/23/17 21:00 07/23/17 20:59 Heparin Sodium (Porcine) (Heparin 5000 units/ml) 5,000 units EVERY 12 HOURS SUBQ 06/23/17 09:00 07/23/17 08:59 06/26/17 09:37 Lactulose (Cephulac) 10 gm THREE TIMES A DAY ORAL 06/08/17 13:00 07/08/17 12:59 06/11/17 10:05 Magnesium Oxide (Mag-Ox 400mg) 500 mg THREE TIMES A DAY ORAL 06/12/17 19:30 07/12/17 19:29 06/26/17 13:58 Multivitamins (Multivitamins) 1 tab DAILY ORAL 05/31/17 09:00 06/30/17 08:59 06/26/17 09:37 Nebivolol (Bystolic) 2.5 mg DAILY ORAL 06/25/17 21:00 07/25/17 20:59 06/26/17 09:39 Phosphorus (Phospha 250 Neutral) 500 mg THREE TIMES A DAY ORAL 06/26/17 13:00 07/26/17 12:59 06/26/17 13:58 Prednisone (predniSONE) 40 mg DAILY ORAL 06/19/17 10:00 07/19/17 09:59 06/26/17 09:38 Rifabutin (Mycobutin) 300 mg DAILY ORAL 06/12/17 14:45 07/12/17 14:44 06/26/17 09:37 Sodium Chloride (NaCl) 1 gm THREE TIMES A DAY ORAL 06/21/17 09:00 07/21/17 08:59 06/24/17 17:21 Thiamine HCl (Vitamin B1) 100 mg DAILY ORAL 05/31/17 09:00 06/30/17 08:59 06/26/17 09:38 Trimethoprim/ Sulfamethoxazole (Bactrim-DS) 1 ea DAILY ORAL 06/24/17 14:00 07/01/17 13:59 06/26/17 09:38 TAMMIE MARY Jun 26, 2017 17:08
[2017-06-26 20:51] VITALS: BP 136/85
--- NOTE | 2017-06-26 21:49 | Cardiology Progress Note ---
Assessment/Plan Assessment/Plan 1. Sinus tachycardia, continue Bystolic, LVEF is approximately 50%. 2. Small pericardial effusion. 3. Hypotension, resolved, due to sepsis. 4. Moderate pulmonary HTN could be due to HIV disease. Subjective Subjective Not on telemetry. No cardiac events reported. Objective Last 24 Hour Vital Signs Date Time Temp Pulse Resp B/P (MAP) Pulse Ox O2 Delivery O2 Flow Rate FiO2 06/26/17 20:51 97.9 79 18 136/85 100 Room Air 06/26/17 16:00 97.9 100 20 140/91 100 Room Air 06/26/17 12:00 97.7 89 20 123/75 100 Room Air 06/26/17 08:00 97.7 91 20 112/67 100 Room Air 06/26/17 04:00 97.9 78 20 121/78 100 Room Air 06/26/17 00:00 97.8 84 18 136/87 100 Intake and Output 06/25/17 06/26/17 19:00 07:00 Intake Total 1600 ml Output Total 200 ml Balance 1600 ml -200 ml Intake Oral 1600 ml Output Urine Total 200 ml # Voids 6 # Bowel Movements 1 2D Echo: LVEF 50%, Mild AR, Grade II pseudo-normal LV physiology, RVSP 19 mmHg Laboratory Tests Test 06/26/17 06:40 White Blood Count 6.5 K/UL (4.8-10.8) Red Blood Count 2.96 M/UL (4.70-6.10) L Hemoglobin 9.2 G/DL (14.2-18.0) L Hematocrit 26.6 % (42.0-52.0) L Mean Corpuscular Volume 90 FL (80-99) Mean Corpuscular Hemoglobin 31.0 PG (27.0-31.0) Mean Corpuscular Hemoglobin Concent 34.6 G/DL (32.0-36.0) Red Cell Distribution Width 14.7 % (11.6-14.8) Platelet Count 221 K/UL (150-450) Mean Platelet Volume 7.5 FL (6.5-10.1) Neutrophils (%) (Auto) 74.5 % (45.0-75.0) Lymphocytes (%) (Auto) 14.3 % (20.0-45.0) L Monocytes (%) (Auto) 8.9 % (1.0-10.0) Eosinophils (%) (Auto) 0.8 % (0.0-3.0) Basophils (%) (Auto) 1.4 % (0.0-2.0) Sodium Level 139 MMOL/L (136-145) Potassium Level 3.9 MMOL/L (3.5-5.1) Chloride Level 105 MMOL/L (98-107) Carbon Dioxide Level 30 MMOL/L (21-32) Anion Gap 4 mmol/L (5-15) L Blood Urea Nitrogen 19 mg/dL (7-18) H Creatinine 0.8 MG/DL (0.55-1.30) Estimat Glomerular Filtration Rate > 60 mL/min (>60) Glucose Level 73 MG/DL (74-106) L Calcium Level 8.5 MG/DL (8.5-10.1) Phosphorus Level 0.5 MG/DL (2.5-4.9) *L Magnesium Level 1.4 MG/DL (1.8-2.4) L Total Bilirubin 0.1 MG/DL (0.2-1.0) L Aspartate Amino Transf (AST/SGOT) 16 U/L (15-37) Alanine Aminotransferase (ALT/SGPT) 23 U/L (12-78) Alkaline Phosphatase 124 U/L (46-116) H Total Protein 7.5 G/DL (6.4-8.2) Albumin 1.7 G/DL (3.4-5.0) L Globulin 5.8 g/dL Albumin/Globulin Ratio 0.3 (1.0-2.7) L Objective GENERAL: No acute respiratory distress HEENT: Atraumatic, normocephalic, PERRLA, EOMI. NECK: JVP < 5 cm, no carotid bruit. LUNGS: Decreased breath sounds. CARDIOVASCULAR: Regular rate rhythm, tachycardic, normal S1S2, no murmurs, gallops or rubs. ABDOMEN: Soft, nontender, and nondistended. EXTREMITIES: 1+ B/L edema. VIET SCHROEDER Jun 26, 2017 21:49
--- NOTE | 2017-06-26 23:02 | General Progress Note ---
Assessment/Plan Status: unchanged Assessment/Plan ASSESSMENT/PLAN # Leukopenia 2/2 HIV --> unfortunately has refused bone marrow biopsy, have explained him the risks and of potentially missing a diagnosis such as lymphoma --> bone marrow biopsy completed 06/18/17 and preliminary is negative, --> final results of bone marrow biopsy completed today 06/23, pathology revealing neg afb strains, neg granuloma, neg lymphoma, increased iron storages # Anemia 2/2 HIV, watch counts, transfuse if hgb below 7 --> hemoglobin has been >7 --> blood transfusion not required today -->Low folate level, continue PO folate # Anemia 2/2 folic acid deficiency --> on folate p.o. # HIV with very low CD4 count --> vl is high # AFB + for Mycobacterium avium. To be confirmed with bone marrow bx 06/17/17 --> on abx for disseminated MAC # MSSA PNA # Interstitial lung disease --> may require lung biopsy # acute hypoxemic RF # severe protein calorie malnutrition # diarrhea, better. C. diff negative. GI following # alcohol dependence # depression Subjective Constitutional: Denies: no symptoms, chills, diaphoresis, fever, malaise, weakness, other HEENT: Denies: no symptoms, eye pain, blurred vision, tearing, double vision, ear pain, ear discharge, nose pain, nose congestion, throat pain, throat swelling, mouth pain, mouth swelling, other Cardiovascular: Denies: no symptoms, chest pain, edema, irregular heart rate, lightheadedness, palpitations, syncope, other Respiratory: Denies: no symptoms, cough, orthopnea, shortness of breath, SOB with excertion, SOB at rest, sputum, stridor, wheezing, other Gastrointestinal/Abdominal: Denies: no symptoms, abdomen distended, abdominal pain, black stools, tarry stools, blood in stool, constipated, diarrhea, difficulty swallowing, nausea, poor appetite, poor fluid intake, rectal bleeding , vomiting, other Genitourinary: Denies: no symptoms, burning, discharge, frequency, flank pain, hematuria, incontinence, pain, urgency, other Allergies: Coded Allergies: No Known Allergies (Unverified , 05/23/17) Subjective No major events. No complaints of pain. Afebrile. Objective Last 24 Hour Vital Signs Date Time Temp Pulse Resp B/P (MAP) Pulse Ox O2 Delivery O2 Flow Rate FiO2 06/26/17 20:51 97.9 79 18 136/85 100 Room Air 06/26/17 16:00 97.9 100 20 140/91 100 Room Air 06/26/17 12:00 97.7 89 20 123/75 100 Room Air 06/26/17 08:00 97.7 91 20 112/67 100 Room Air 06/26/17 04:00 97.9 78 20 121/78 100 Room Air 06/26/17 00:00 97.8 84 18 136/87 100 Intake and Output 06/25/17 06/26/17 19:00 07:00 Intake Total 1600 ml Output Total 200 ml Balance 1600 ml -200 ml Intake Oral 1600 ml Output Urine Total 200 ml # Voids 6 # Bowel Movements 1 Laboratory Tests 06/26/17 06:40: White Blood Count 6.5, Red Blood Count 2.96L, Hemoglobin 9.2L, Hematocrit 26.6L , Mean Corpuscular Volume 90, Mean Corpuscular Hemoglobin 31.0, Mean Corpuscular Hemoglobin Concent 34.6, Red Cell Distribution Width 14.7, Platelet Count 221, Mean Platelet Volume 7.5, Neutrophils (%) (Auto) 74.5, Lymphocytes (% ) (Auto) 14.3L, Monocytes (%) (Auto) 8.9, Eosinophils (%) (Auto) 0.8, Basophils (%) (Auto) 1.4, Sodium Level 139, Potassium Level 3.9, Chloride Level 105, Carbon Dioxide Level 30, Anion Gap 4L, Blood Urea Nitrogen 19H, Creatinine 0.8, Estimat Glomerular Filtration Rate > 60, Glucose Level 73L, Calcium Level 8.5, Phosphorus Level 0.5*L, Magnesium Level 1.4L, Total Bilirubin 0.1L, Aspartate Amino Transf (AST/SGOT) 16, Alanine Aminotransferase (ALT/SGPT) 23, Alkaline Phosphatase 124H, Total Protein 7.5, Albumin 1.7L, Globulin 5.8, Albumin/ Globulin Ratio 0.3L Height (Feet): 5 Height (Inches): 10.00 Weight (Pounds): 90 General Appearance: no apparent distress EENT: normal ENT inspection Neck: normal alignment, supple Cardiovascular: tachycardia Respiratory/Chest: lungs clear, normal breath sounds Abdomen: non tender, soft Kleynberg,Nikhil L. Jun 26, 2017 23:02
[2017-06-27 01:00] VITALS: BP 130/77
[2017-06-27 03:33] VITALS: BP 131/75
[2017-06-27] MEDS: Thiamine 100mg tab ORAL SCH (08:40)
[2017-06-27] MEDS: Phospha 250 Neutral tab ORAL SCH ×3 (08:40→17:48)
[2017-06-27] MEDS: Dolutegravir Sodium 50mg tab ORAL SCH (08:40)
[2017-06-27] MEDS: Bactrim-DS 1 tab ORAL SCH (08:41)
[2017-06-27] MEDS: Rifabutin 150mg cap ORAL SCH (08:41)
[2017-06-27] MEDS: Magnesium Oxide 400mg tab ORAL SCH ×3 (08:42→17:47)
[2017-06-27] MEDS: Bystolic 2.5mg Tab ORAL SCH (08:43)
[2017-06-27] MEDS: Azithromycin 600mg Tab ORAL SCH (08:43)
[2017-06-27 08:56] VITALS: BP 124/85
[2017-06-27] MEDS: Depakote ER 500mg tab ORAL SCH ×2 (08:57→20:25)
[2017-06-27] MEDS: Docusate 100mg cap ORAL SCH ×2 (08:57→17:36)
[2017-06-27] MEDS: Heparin 5000 units/ml inj SUBQ SCH ×2 (08:57→20:25)
[2017-06-27] MEDS: Sodium Chloride 1gm Tab ORAL SCH ×3 (08:57→17:36)
[2017-06-27] MEDS: Lactulose 10gm/15ml UDC ORAL SCH ×3 (08:57→17:35)
--- NOTE | 2017-06-27 10:26 | Pulmonology Progress Note ---
Assessment/Plan Problems: (1) Atypical pneumonia (2) Severe protein-calorie malnutrition (3) Interstitial lung disease (4) Diarrhea Assessment/Plan Continue MAC treatment Will need snif placement getting stronger, dc planning in process Subjective ROS Limited/Unobtainable: No Constitutional: Reports: no symptoms HEENT: Repors: no symptoms Allergies: Coded Allergies: No Known Allergies (Unverified , 05/23/17) Objective Last 24 Hour Vital Signs Date Time Temp Pulse Resp B/P (MAP) Pulse Ox O2 Delivery O2 Flow Rate FiO2 06/27/17 08:56 97.8 79 19 124/85 99 06/27/17 03:33 97.7 68 20 131/75 100 Room Air 06/27/17 01:00 97.7 80 20 130/77 100 Room Air 06/26/17 20:51 97.9 79 18 136/85 100 Room Air 06/26/17 16:00 97.9 100 20 140/91 100 Room Air 06/26/17 12:00 97.7 89 20 123/75 100 Room Air Intake and Output 06/26/17 06/27/17 19:00 07:00 Intake Total 850 ml Output Total 625 ml 600 ml Balance 225 ml -600 ml Intake Oral 850 ml Output Urine Total 625 ml 600 ml # Bowel Movements 1 General Appearance: WD/WN HEENT: normocephalic, atraumatic Respiratory/Chest: chest wall non-tender, lungs clear, chest wall tender Cardiovascular: normal rate Abdomen: normal bowel sounds, soft, non tender, no scars Extremities: no cyanosis, no clubbing Skin: no lesions Current Medications Medications (Trade) Dose Ordered Sig/Anna Route PRN Reason Start Time Stop Time Status Last Admin Dose Admin Albuterol/ Ipratropium (Albuterol/ Ipratropium) 3 ml Q6HRT HHN 06/11/17 13:00 06/16/17 23:59 06/15/17 23:54 Azithromycin (Zithromax) 600 mg DAILY ORAL 06/20/17 13:00 07/25/17 12:59 06/27/17 08:43 Divalproex Sodium (Depakote ER) 1,000 mg EVERY 12 HOURS ORAL 05/29/17 09:00 06/28/17 08:59 06/24/17 09:18 Docusate Sodium (Colace) 100 mg TWICE A DAY ORAL 06/08/17 18:00 07/08/17 17:59 06/11/17 10:03 Dolutegravir Sodium (Tivicay) 50 mg DAILY ORAL 06/19/17 09:00 07/19/17 08:59 06/27/17 08:40 Emtricitabine/ Tenofovir (Truvada 200/ 300mg) 1 tab DAILY ORAL 06/19/17 11:00 07/19/17 10:59 06/27/17 08:43 Ethambutol HCl (Myambutol) 600 mg DAILY ORAL 06/12/17 14:45 07/12/17 14:44 06/27/17 08:42 Famotidine (Pepcid) 20 mg QHS ORAL 06/23/17 21:00 07/23/17 20:59 Heparin Sodium (Porcine) (Heparin 5000 units/ml) 5,000 units EVERY 12 HOURS SUBQ 06/23/17 09:00 07/23/17 08:59 06/26/17 20:50 Lactulose (Cephulac) 10 gm THREE TIMES A DAY ORAL 06/08/17 13:00 07/08/17 12:59 06/11/17 10:05 Magnesium Oxide (Mag-Ox 400mg) 500 mg THREE TIMES A DAY ORAL 06/12/17 19:30 07/12/17 19:29 06/27/17 08:42 Multivitamins (Multivitamins) 1 tab DAILY ORAL 05/31/17 09:00 06/30/17 08:59 06/27/17 08:42 Nebivolol (Bystolic) 2.5 mg DAILY ORAL 06/25/17 21:00 07/25/17 20:59 06/27/17 08:43 Phosphorus (Phospha 250 Neutral) 500 mg THREE TIMES A DAY ORAL 06/26/17 13:00 07/26/17 12:59 06/27/17 08:40 Prednisone (predniSONE) 40 mg DAILY ORAL 06/19/17 10:00 07/19/17 09:59 06/27/17 08:40 Rifabutin (Mycobutin) 300 mg DAILY ORAL 06/12/17 14:45 07/12/17 14:44 06/27/17 08:41 Sodium Chloride (NaCl) 1 gm THREE TIMES A DAY ORAL 06/21/17 09:00 07/21/17 08:59 06/24/17 17:21 Thiamine HCl (Vitamin B1) 100 mg DAILY ORAL 05/31/17 09:00 06/30/17 08:59 06/27/17 08:40 Trimethoprim/ Sulfamethoxazole (Bactrim-DS) 1 ea DAILY ORAL 06/24/17 14:00 07/01/17 13:59 06/27/17 08:41 TAMMIE MARY Jun 27, 2017 10:26
[2017-06-27 11:46] VITALS: BP 116/72
--- NOTE | 2017-06-27 12:19 | Infectious Diseases Prog Note ---
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 Typically isolated pulmonary MAC infection is seen in immunocompetent patients. Given he is HIV with probably AIDS with a low CD4 as very low lymphocyte counts (CD4 unable to be calculated) and his clinical presentation of wt loss, intermittent fevers, leukopenia/anemia, pulmonary infiltrates are very suggestive of the diagnosis. Diagnosis is confirmed by either isolation of MAC from blood and/or bone marrow. So far bone marrow biopsy neg for MAC- however given his clinical presentation, MAC isolated from lungs, HIV/AIDS status will treat for disseminated MAC; await final AFB cx from blood and bone marrow biopsy -s/p bone marrow biopsy 06/18 -path: preliminary neg, neg AFB stains, neg granuloma, neg for lymphoma- increased iron storages -bacterial cx neg; fungal and AFB cx p Pneumonia. . Sp Cx : MSSA SP Rx - s/p Bronchoscopy 06/10: friable mucosa, mild mucoid secretions; cx normal [place] -BAL cytology: rare atypical cells. Neg GMS and PCP stain CT of Abd /Bilateral pulmonary alveolar infiltrates consistent with pneumonia.- patient not hypoxic, not febrile- lower suspicion PCP; PCP DFA neg AFBx 3 : Neg ( 3rd from 05/26 not in EMR ) now AFB Cx 06/16 05/25 : +MAC; MTB PCR : Neg T Spot : neg Crytpo and blastomycosis: JOHANNA Neg ; RF + histo ab, Cocci ab : neg CT: Extensive interstitial and airspace parenchymal disease, and honeycomb appearance of much of the lower lobe and right middle lobe interstitial component, HIV/AIDS: first test negative repeat, repeat +; VL 973,150; CD4 unable to be calculated due to low absolute lymphocyte count -repeat CD4 p -HIV genotype: no resistance identified on RT or PI -Hep a immune -Hep b not immune, neg hep C -RPR neg -GC/CL neg - HLA B27 + Chronic diarrhea resolved, now constipated Stool for ova and parasite ( ? sent ) stool Cx : neg ? pancreatic insufficiency due to chronic alcohol abuse. also possibly due to disseminated MAC Elevated ESR , CRP and RF JOHANNA : neg Leukopenia/anemia Anemia and leukopenia PLAN: -Continue tx for suspect disseminated MAC with Azithromycin 600mg qd, Rifabutin 300mg qd and Ethambutol 600mg qd #15 awaiting final AFB bone marrow cx- decision to continue tx if cultures negative up to his new to be outpatient HIV provider as bone marrow biopsy was negative for disseminated MAC -f/u AFB bcx (never collected; reordered 06/22) -for bone marrow biopsy final cx -review drug-drug interactions with any new meds - Continue Truvada and Dolutegravir ( started 06/19 ) -f/u BAL cx (fungal, AFB), -f/u repeat CD4 as lymphocyte count improving -continue Bactrim DS 1 tab qd for PCP ppx - case management director consulted to start working on HIV clinic to continue HIV and MAC to be set up prior to discharge; risk of readmission if not follow up with a HIV provider upon discharge. -pending discharge to [facility] 06/15 Bactrim high dose #4 06/05 SP Ancef d# 10 05/30 SP Zithromax d# 5 / 5 06/01 SP ( refusing) Flagyl d# 46 05/27 SP vancomycin, cefepime d# 5, Monitor CBC/CMP f/u Fungal and AFB blood Cx Subjective Constitutional: Denies: no symptoms, fever, chills, fatigue, anorexia, drenching sweats, other Allergies: Coded Allergies: No Known Allergies (Unverified , 05/23/17) Subjective afebrile Objective Vital Signs Last 24 Hour Vital Signs Date Time Temp Pulse Resp B/P (MAP) Pulse Ox O2 Delivery O2 Flow Rate FiO2 06/27/17 11:46 98.0 100 20 116/72 98 06/27/17 08:56 97.8 79 19 124/85 99 06/27/17 03:33 97.7 68 20 131/75 100 Room Air 06/27/17 01:00 97.7 80 20 130/77 100 Room Air 06/26/17 20:51 97.9 79 18 136/85 100 Room Air 06/26/17 16:00 97.9 100 20 140/91 100 Room Air Height (Feet): 5 Height (Inches): 10.00 Weight (Pounds): 90 HEENT: anicteric Respiratory/Chest: no accessory muscle use Cardiovascular: regular rhythm Abdomen: non distended Current Medications Medications (Trade) Dose Ordered Sig/Anna Route PRN Reason Start Time Stop Time Status Last Admin Dose Admin Albuterol/ Ipratropium (Albuterol/ Ipratropium) 3 ml Q6HRT HHN 06/11/17 13:00 06/16/17 23:59 06/15/17 23:54 Azithromycin (Zithromax) 600 mg DAILY ORAL 06/20/17 13:00 07/25/17 12:59 06/27/17 08:43 Divalproex Sodium (Depakote ER) 1,000 mg EVERY 12 HOURS ORAL 05/29/17 09:00 06/28/17 08:59 06/24/17 09:18 Docusate Sodium (Colace) 100 mg TWICE A DAY ORAL 06/08/17 18:00 07/08/17 17:59 06/11/17 10:03 Dolutegravir Sodium (Tivicay) 50 mg DAILY ORAL 06/19/17 09:00 07/19/17 08:59 06/27/17 08:40 Emtricitabine/ Tenofovir (Truvada 200/ 300mg) 1 tab DAILY ORAL 06/19/17 11:00 07/19/17 10:59 06/27/17 08:43 Ethambutol HCl (Myambutol) 600 mg DAILY ORAL 06/12/17 14:45 07/12/17 14:44 06/27/17 08:42 Famotidine (Pepcid) 20 mg QHS ORAL 06/23/17 21:00 07/23/17 20:59 Heparin Sodium (Porcine) (Heparin 5000 units/ml) 5,000 units EVERY 12 HOURS SUBQ 06/23/17 09:00 07/23/17 08:59 06/26/17 20:50 Lactulose (Cephulac) 10 gm THREE TIMES A DAY ORAL 06/08/17 13:00 07/08/17 12:59 06/11/17 10:05 Magnesium Oxide (Mag-Ox 400mg) 500 mg THREE TIMES A DAY ORAL 06/12/17 19:30 07/12/17 19:29 06/27/17 08:42 Multivitamins (Multivitamins) 1 tab DAILY ORAL 05/31/17 09:00 06/30/17 08:59 06/27/17 08:42 Nebivolol (Bystolic) 2.5 mg DAILY ORAL 06/25/17 21:00 07/25/17 20:59 06/27/17 08:43 Phosphorus (Phospha 250 Neutral) 500 mg THREE TIMES A DAY ORAL 06/26/17 13:00 07/26/17 12:59 06/27/17 08:40 Prednisone (predniSONE) 40 mg DAILY ORAL 06/19/17 10:00 07/19/17 09:59 06/27/17 08:40 Rifabutin (Mycobutin) 300 mg DAILY ORAL 06/12/17 14:45 07/12/17 14:44 06/27/17 08:41 Sodium Chloride (NaCl) 1 gm THREE TIMES A DAY ORAL 06/21/17 09:00 07/21/17 08:59 06/24/17 17:21 Thiamine HCl (Vitamin B1) 100 mg DAILY ORAL 05/31/17 09:00 06/30/17 08:59 06/27/17 08:40 Trimethoprim/ Sulfamethoxazole (Bactrim-DS) 1 ea DAILY ORAL 06/24/17 14:00 07/01/17 13:59 06/27/17 08:41 AMARIS BRIGGS M.D. Jun 27, 2017 12:19
[2017-06-27 16:00] VITALS: BP 116/67
[2017-06-27 20:00] VITALS: BP 117/70
[2017-06-28] VITALS: BP 124/77
--- NOTE | 2017-06-28 03:39 | General Progress Note ---
Assessment/Plan Assessment/Plan ASSESSMENT/PLAN # Leukopenia 2/2 HIV --> unfortunately has refused bone marrow biopsy, have explained him the risks and of potentially missing a diagnosis such as lymphoma --> bone marrow biopsy completed 06/18/17 and preliminary is negative, --> final results of bone marrow biopsy completed today 06/23, --> pathology revealing neg afb strains, neg granuloma, neg lymphoma, increased iron storages # Anemia 2/2 HIV, watch counts, transfuse if hgb below 7 --> hemoglobin has been >7 --> blood transfusion not required today -->Low folate level, continue PO folate # Anemia 2/2 folic acid deficiency --> on folate p.o. --> Monitor levels. # HIV with very low CD4 count --> vl is high # AFB + for Mycobacterium avium. To be confirmed with bone marrow bx 06/17/17 --> on abx for disseminated MAC --> Negative pathology # MSSA PNA # Interstitial lung disease --> may require lung biopsy # acute hypoxemic RF # severe protein calorie malnutrition # diarrhea, better. C. diff negative. GI following # alcohol dependence # depression Subjective Date patient seen: Jun 27, 2017 Constitutional: Denies: no symptoms, chills, diaphoresis, fever, malaise, weakness, other HEENT: Denies: no symptoms, eye pain, blurred vision, tearing, double vision, ear pain, ear discharge, nose pain, nose congestion, throat pain, throat swelling, mouth pain, mouth swelling, other Cardiovascular: Denies: no symptoms, chest pain, edema, irregular heart rate, lightheadedness, palpitations, syncope, other Respiratory: Denies: no symptoms, cough, orthopnea, shortness of breath, SOB with excertion, SOB at rest, sputum, stridor, wheezing, other Gastrointestinal/Abdominal: Denies: no symptoms, abdomen distended, abdominal pain, black stools, tarry stools, blood in stool, constipated, diarrhea, difficulty swallowing, nausea, poor appetite, poor fluid intake, rectal bleeding , vomiting, other Genitourinary: Denies: no symptoms, burning, discharge, frequency, flank pain, hematuria, incontinence, pain, urgency, other Neurologic/Psychiatric: Denies: no symptoms, anxiety, depressed, emotional problems, headache, numbness, paresthesia, pre-existing deficit, seizure, tingling, tremors, weakness, other Allergies: Coded Allergies: No Known Allergies (Unverified , 05/23/17) Subjective No new events overnight. Patient resting in bed. No fever or chills. Objective Last 24 Hour Vital Signs Date Time Temp Pulse Resp B/P (MAP) Pulse Ox O2 Delivery O2 Flow Rate FiO2 06/27/17 20:00 97.7 82 20 117/70 100 Room Air 06/27/17 16:00 97.9 81 20 116/67 100 06/27/17 11:46 98.0 100 20 116/72 98 06/27/17 08:56 97.8 79 19 124/85 99 Intake and Output 06/27/17 06/28/17 19:00 07:00 Intake Total 780 ml Output Total 400 ml Balance 380 ml Intake Oral 780 ml Output Urine Total 400 ml # Voids 4 # Bowel Movements 1 Height (Feet): 5 Height (Inches): 10.00 Weight (Pounds): 90 General Appearance: no apparent distress EENT: normal ENT inspection Cardiovascular: normal rate, regular rhythm Respiratory/Chest: lungs clear Nikhil Woodward Jun 28, 2017 03:39
[2017-06-28 04:00] VITALS: BP 113/76
[2017-06-28 08:00] VITALS: BP 120/81
[2017-06-28] MEDS: Phospha 250 Neutral tab ORAL SCH ×3 (10:10→18:38)
[2017-06-28] MEDS: Thiamine 100mg tab ORAL SCH (10:10)
[2017-06-28] MEDS: Dolutegravir Sodium 50mg tab ORAL SCH (10:12)
[2017-06-28] MEDS: Bystolic 2.5mg Tab ORAL SCH (10:12)
[2017-06-28] MEDS: Azithromycin 600mg Tab ORAL SCH (10:12)
[2017-06-28] MEDS: Docusate 100mg cap ORAL SCH ×2 (10:12→17:57)
[2017-06-28] MEDS: Magnesium Oxide 400mg tab ORAL SCH ×3 (10:12→18:39)
[2017-06-28] MEDS: Bactrim-DS 1 tab ORAL SCH (10:12)
[2017-06-28] MEDS: Sodium Chloride 1gm Tab ORAL SCH ×3 (10:12→17:58)
[2017-06-28] MEDS: Lactulose 10gm/15ml UDC ORAL SCH ×3 (10:13→17:57)
[2017-06-28] MEDS: Heparin 5000 units/ml inj SUBQ SCH ×2 (10:13→20:21)
[2017-06-28] MEDS: Rifabutin 150mg cap ORAL SCH (10:15)
--- NOTE | 2017-06-28 11:11 | Pulmonology Progress Note ---
Assessment/Plan Problems: (1) Atypical pneumonia (2) Severe protein-calorie malnutrition (3) Interstitial lung disease (4) Diarrhea Assessment/Plan Continue MAC treatment Will need snif placement getting stronger, dc planning in process Subjective ROS Limited/Unobtainable: No Constitutional: Reports: no symptoms HEENT: Repors: no symptoms Respiratory: Reports: no symptoms Allergies: Coded Allergies: No Known Allergies (Unverified , 05/23/17) Objective Last 24 Hour Vital Signs Date Time Temp Pulse Resp B/P (MAP) Pulse Ox O2 Delivery O2 Flow Rate FiO2 06/28/17 08:00 97.6 95 19 120/81 100 06/28/17 04:00 98.3 88 20 113/76 100 Room Air 06/28/17 00:00 97.9 100 20 124/77 100 Room Air 06/27/17 20:00 97.7 82 20 117/70 100 Room Air 06/27/17 16:00 97.9 81 20 116/67 100 06/27/17 11:46 98.0 100 20 116/72 98 Intake and Output 06/27/17 06/28/17 19:00 07:00 Intake Total 780 ml 500 ml Output Total 400 ml 1000 ml Balance 380 ml -500 ml Intake Oral 780 ml 500 ml Output Urine Total 400 ml 1000 ml # Voids 4 # Bowel Movements 1 1 Objective General Appearance: WD/WN HEENT: normocephalic, atraumatic Respiratory/Chest: chest wall non-tender, lungs clear Cardiovascular: normal peripheral pulses, normal rate Abdomen: normal bowel sounds, soft, non tender Genitourinary: normal external genitalia Extremities: no cyanosis Neurologic/Psychiatric: director clinical applications II-XII 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, no motor/sensory deficits Lymphatic: no neck adenopathy Current Medications Medications (Trade) Dose Ordered Sig/Anna Route PRN Reason Start Time Stop Time Status Last Admin Dose Admin Acetaminophen (Tylenol) 650 mg Q4H PRN ORAL Mild Pain/Temp > 100.5 06/28/17 10:15 07/28/17 10:14 06/28/17 10:32 Albuterol/ Ipratropium (Albuterol/ Ipratropium) 3 ml Q6HRT HHN 06/11/17 13:00 06/16/17 23:59 06/15/17 23:54 Azithromycin (Zithromax) 600 mg DAILY ORAL 06/20/17 13:00 07/25/17 12:59 06/28/17 10:12 Docusate Sodium (Colace) 100 mg TWICE A DAY ORAL 06/08/17 18:00 07/08/17 17:59 06/11/17 10:03 Dolutegravir Sodium (Tivicay) 50 mg DAILY ORAL 06/19/17 09:00 07/19/17 08:59 06/28/17 10:12 Emtricitabine/ Tenofovir (Truvada 200/ 300mg) 1 tab DAILY ORAL 06/19/17 11:00 07/19/17 10:59 06/28/17 10:12 Ethambutol HCl (Myambutol) 600 mg DAILY ORAL 06/12/17 14:45 07/12/17 14:44 06/28/17 10:11 Famotidine (Pepcid) 20 mg QHS ORAL 06/23/17 21:00 07/23/17 20:59 Heparin Sodium (Porcine) (Heparin 5000 units/ml) 5,000 units EVERY 12 HOURS SUBQ 06/23/17 09:00 07/23/17 08:59 06/27/17 20:25 Lactulose (Cephulac) 10 gm THREE TIMES A DAY ORAL 06/08/17 13:00 07/08/17 12:59 06/11/17 10:05 Magnesium Oxide (Mag-Ox 400mg) 500 mg THREE TIMES A DAY ORAL 06/12/17 19:30 07/12/17 19:29 06/28/17 10:12 Multivitamins (Multivitamins) 1 tab DAILY ORAL 05/31/17 09:00 06/30/17 08:59 06/28/17 10:11 Nebivolol (Bystolic) 2.5 mg DAILY ORAL 06/25/17 21:00 07/25/17 20:59 06/28/17 10:12 Phosphorus (Phospha 250 Neutral) 500 mg THREE TIMES A DAY ORAL 06/26/17 13:00 07/26/17 12:59 06/28/17 10:10 Prednisone (predniSONE) 40 mg DAILY ORAL 06/19/17 10:00 07/19/17 09:59 06/28/17 10:10 Rifabutin (Mycobutin) 300 mg DAILY ORAL 06/12/17 14:45 07/12/17 14:44 06/28/17 10:15 Sodium Chloride (NaCl) 1 gm THREE TIMES A DAY ORAL 06/21/17 09:00 07/21/17 08:59 06/24/17 17:21 Thiamine HCl (Vitamin B1) 100 mg DAILY ORAL 05/31/17 09:00 06/30/17 08:59 06/28/17 10:10 Trimethoprim/ Sulfamethoxazole (Bactrim-DS) 1 ea DAILY ORAL 06/24/17 14:00 07/01/17 13:59 06/28/17 10:12 TAMMIE MARY Jun 28, 2017 11:11
[2017-06-28 11:43] VITALS: BP 113/81
[2017-06-28 16:00] VITALS: BP 114/72
[2017-06-28 20:00] VITALS: BP 102/59
--- NOTE | 2017-06-28 23:49 | Cardiology Progress Note ---
Assessment/Plan Assessment/Plan 1. Sinus tachycardia, continue Bystolic, LVEF is approximately 50%. 2. Small pericardial effusion. 3. Hypotension, resolved, due to sepsis. 4. Moderate pulmonary HTN could be due to HIV disease. 5. Chronic diastolic CHF, may consider low dose diuretics. Subjective Subjective Not on telemetry. No cardiac symptoms. Objective Last 24 Hour Vital Signs Date Time Temp Pulse Resp B/P (MAP) Pulse Ox O2 Delivery O2 Flow Rate FiO2 06/28/17 20:00 98.1 98 21 102/59 98 06/28/17 16:00 98.1 99 20 114/72 100 06/28/17 11:43 97.8 102 19 113/81 99 06/28/17 08:00 97.6 95 19 120/81 100 06/28/17 04:00 98.3 88 20 113/76 100 Room Air 06/28/17 00:00 97.9 100 20 124/77 100 Room Air Intake and Output 06/27/17 06/28/17 19:00 07:00 Intake Total 780 ml 500 ml Output Total 400 ml 1000 ml Balance 380 ml -500 ml Intake Oral 780 ml 500 ml Output Urine Total 400 ml 1000 ml # Voids 4 # Bowel Movements 1 1 2D Echo: LVEF 50%, Mild AR, Grade II pseudo-normal LV physiology, RVSP 19 mmHg Objective GENERAL: No acute respiratory distress HEENT: Atraumatic, normocephalic, PERRLA, EOMI. NECK: JVP < 5 cm, no carotid bruit. LUNGS: Decreased breath sounds. CARDIOVASCULAR: Regular rate rhythm, tachycardic, normal S1S2, no murmurs, gallops or rubs. ABDOMEN: Soft, nontender, and nondistended. EXTREMITIES: 1+ B/L edema. VIET SCHROEDER Jun 28, 2017 23:49
[2017-06-29] VITALS: BP 115/70
[2017-06-29 04:00] VITALS: BP 118/68
[2017-06-29 08:00] VITALS: BP 130/75
[2017-06-29] MEDS: Sodium Chloride 1gm Tab ORAL SCH ×3 (08:35→18:05)
[2017-06-29] MEDS: Rifabutin 150mg cap ORAL SCH (08:35)
[2017-06-29] MEDS: Magnesium Oxide 400mg tab ORAL SCH ×3 (08:35→18:05)
[2017-06-29] MEDS: Bystolic 2.5mg Tab ORAL SCH (08:35)
[2017-06-29] MEDS: Azithromycin 600mg Tab ORAL SCH (08:36)
[2017-06-29] MEDS: Bactrim-DS 1 tab ORAL SCH (08:36)
[2017-06-29] MEDS: Dolutegravir Sodium 50mg tab ORAL SCH (08:36)
[2017-06-29] MEDS: Thiamine 100mg tab ORAL SCH (08:37)
[2017-06-29] MEDS: Phospha 250 Neutral tab ORAL SCH ×3 (08:37→18:05)
[2017-06-29] MEDS: Lactulose 10gm/15ml UDC ORAL SCH ×3 (08:49→18:00)
[2017-06-29] MEDS: Heparin 5000 units/ml inj SUBQ SCH ×2 (08:50→21:34)
[2017-06-29] MEDS: Docusate 100mg cap ORAL SCH ×2 (08:50→18:00)
--- NOTE | 2017-06-29 10:35 | Infectious Diseases Prog Note ---
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 Typically isolated pulmonary MAC infection is seen in immunocompetent patients. Given he is HIV with probably AIDS with a low CD4 as very low lymphocyte counts (CD4 unable to be calculated) and his clinical presentation of wt loss, intermittent fevers, leukopenia/anemia, pulmonary infiltrates are very suggestive of the diagnosis. Diagnosis is confirmed by either isolation of MAC from blood and/or bone marrow. So far bone marrow biopsy neg for MAC- however given his clinical presentation, MAC isolated from lungs, HIV/AIDS status will treat for disseminated MAC; await final AFB cx from blood and bone marrow biopsy -s/p bone marrow biopsy 06/18 -path: preliminary neg, neg AFB stains, neg granuloma, neg for lymphoma- increased iron storages -bacterial cx neg; fungal and AFB cx p Pneumonia. . Sp Cx : MSSA SP Rx - s/p Bronchoscopy 06/10: friable mucosa, mild mucoid secretions; cx normal [place] -BAL cytology: rare atypical cells. Neg GMS and PCP stain CT of Abd /Bilateral pulmonary alveolar infiltrates consistent with pneumonia.- patient not hypoxic, not febrile- lower suspicion PCP; PCP DFA neg AFBx 3 : Neg ( 3rd from 05/26 not in EMR ) now AFB Cx 06/16 05/25 : +MAC; MTB PCR : Neg T Spot : neg Crytpo and blastomycosis: JOHANNA Neg ; RF + histo ab, Cocci ab : neg CT: Extensive interstitial and airspace parenchymal disease, and honeycomb appearance of much of the lower lobe and right middle lobe interstitial component, HIV/AIDS: first test negative repeat, repeat +; VL 973,150; CD4 unable to be calculated due to low absolute lymphocyte count -repeat CD4 p -HIV genotype: no resistance identified on RT or PI -Hep a immune -Hep b not immune, neg hep C -RPR neg -GC/CL neg - HLA B27 + Chronic diarrhea resolved, now constipated Stool for ova and parasite ( ? sent ) stool Cx : neg ? pancreatic insufficiency due to chronic alcohol abuse. also possibly due to disseminated MAC Elevated ESR , CRP and RF JOHANNA : neg Leukopenia/anemia Anemia and leukopenia PLAN: -Continue tx for suspect disseminated MAC with Azithromycin 600mg qd, Rifabutin 300mg qd and Ethambutol 600mg qd #15 awaiting final AFB bone marrow cx- decision to continue tx if cultures negative up to his new to be outpatient HIV provider as bone marrow biopsy was negative for disseminated MAC -f/u AFB bcx (never collected; reordered 06/22) -for bone marrow biopsy final cx -review drug-drug interactions with any new meds - Continue Truvada and Dolutegravir ( started 06/19 ) -f/u BAL cx (fungal, AFB), -f/u repeat CD4 as lymphocyte count improving -continue Bactrim DS 1 tab qd for PCP ppx - case management rn consulted to start working on HIV clinic to continue HIV and MAC to be set up prior to discharge; risk of readmission if not follow up with a HIV provider upon discharge. -pending discharge to [facility] 06/15 Bactrim high dose #4 06/05 SP Ancef d# 10 05/30 SP Zithromax d# 5 / 5 06/01 SP ( refusing) Flagyl d# 46 05/27 SP vancomycin, cefepime d# 5, Monitor CBC/CMP f/u Fungal and AFB blood Cx Subjective Constitutional: Denies: no symptoms, fever, chills, fatigue, anorexia, drenching sweats, other Allergies: Coded Allergies: No Known Allergies (Unverified , 05/23/17) Subjective afebrile Objective Vital Signs Last 24 Hour Vital Signs Date Time Temp Pulse Resp B/P (MAP) Pulse Ox O2 Delivery O2 Flow Rate FiO2 06/29/17 08:00 75 18 130/75 98 Room Air 06/29/17 04:00 98.2 99 20 118/68 99 Room Air 06/29/17 00:00 98.0 89 21 115/70 100 06/28/17 20:00 98.1 98 21 102/59 98 06/28/17 16:00 98.1 99 20 114/72 100 06/28/17 11:43 97.8 102 19 113/81 99 Height (Feet): 5 Height (Inches): 10.00 Weight (Pounds): 90 HEENT: atraumatic Respiratory/Chest: no respiratory distress Cardiovascular: regularly irregular Abdomen: no mass Current Medications Medications (Trade) Dose Ordered Sig/Anna Route PRN Reason Start Time Stop Time Status Last Admin Dose Admin Acetaminophen (Tylenol) 650 mg Q4H PRN ORAL Mild Pain/Temp > 100.5 06/28/17 10:15 07/28/17 10:14 06/28/17 10:32 Albuterol/ Ipratropium (Albuterol/ Ipratropium) 3 ml Q6HRT HHN 06/11/17 13:00 06/16/17 23:59 06/15/17 23:54 Azithromycin (Zithromax) 600 mg DAILY ORAL 06/20/17 13:00 07/25/17 12:59 06/29/17 08:36 Docusate Sodium (Colace) 100 mg TWICE A DAY ORAL 06/08/17 18:00 07/08/17 17:59 06/11/17 10:03 Dolutegravir Sodium (Tivicay) 50 mg DAILY ORAL 06/19/17 09:00 07/19/17 08:59 06/29/17 08:36 Emtricitabine/ Tenofovir (Truvada 200/ 300mg) 1 tab DAILY ORAL 06/19/17 11:00 07/19/17 10:59 06/29/17 08:35 Ethambutol HCl (Myambutol) 600 mg DAILY ORAL 06/12/17 14:45 07/12/17 14:44 06/29/17 08:36 Famotidine (Pepcid) 20 mg QHS ORAL 06/23/17 21:00 07/23/17 20:59 06/29/17 08:35 Heparin Sodium (Porcine) (Heparin 5000 units/ml) 5,000 units EVERY 12 HOURS SUBQ 06/23/17 09:00 07/23/17 08:59 06/28/17 20:21 Lactulose (Cephulac) 10 gm THREE TIMES A DAY ORAL 06/08/17 13:00 07/08/17 12:59 06/11/17 10:05 Magnesium Oxide (Mag-Ox 400mg) 500 mg THREE TIMES A DAY ORAL 06/12/17 19:30 07/12/17 19:29 06/29/17 08:35 Multivitamins (Multivitamins) 1 tab DAILY ORAL 05/31/17 09:00 06/30/17 08:59 06/29/17 08:36 Nebivolol (Bystolic) 2.5 mg DAILY ORAL 06/25/17 21:00 07/25/17 20:59 06/29/17 08:35 Phosphorus (Phospha 250 Neutral) 500 mg THREE TIMES A DAY ORAL 06/26/17 13:00 07/26/17 12:59 06/29/17 08:37 Prednisone (predniSONE) 40 mg DAILY ORAL 06/19/17 10:00 07/19/17 09:59 06/29/17 08:37 Rifabutin (Mycobutin) 300 mg DAILY ORAL 06/12/17 14:45 07/12/17 14:44 06/29/17 08:35 Sodium Chloride (NaCl) 1 gm THREE TIMES A DAY ORAL 06/21/17 09:00 07/21/17 08:59 06/29/17 08:35 Thiamine HCl (Vitamin B1) 100 mg DAILY ORAL 05/31/17 09:00 06/30/17 08:59 06/29/17 08:37 Trimethoprim/ Sulfamethoxazole (Bactrim-DS) 1 ea DAILY ORAL 06/24/17 14:00 07/06/17 13:59 06/29/17 08:36 AMARIS BRIGGS M.D. Jun 29, 2017 10:35
[2017-06-29 12:00] VITALS: BP 131/87
--- NOTE | 2017-06-29 12:03 | Pulmonology Progress Note ---
Assessment/Plan Problems: (1) Atypical pneumonia (2) Severe protein-calorie malnutrition (3) Interstitial lung disease (4) Diarrhea Assessment/Plan Continue MAC treatment Will need snif placement getting stronger, dc planning in process Subjective ROS Limited/Unobtainable: No Constitutional: Reports: no symptoms HEENT: Repors: no symptoms Allergies: Coded Allergies: No Known Allergies (Unverified , 05/23/17) Objective Last 24 Hour Vital Signs Date Time Temp Pulse Resp B/P (MAP) Pulse Ox O2 Delivery O2 Flow Rate FiO2 06/29/17 08:00 75 18 130/75 98 Room Air 06/29/17 04:00 98.2 99 20 118/68 99 Room Air 06/29/17 00:00 98.0 89 21 115/70 100 06/28/17 20:00 98.1 98 21 102/59 98 06/28/17 16:00 98.1 99 20 114/72 100 Intake and Output 06/28/17 06/29/17 19:00 07:00 Intake Total 690 ml 300 ml Output Total 400 ml 1100 ml Balance 290 ml -800 ml Intake Oral 690 ml 300 ml Output Urine Total 400 ml 1100 ml # Bowel Movements 1 Objective General Appearance: WD/WN HEENT: normocephalic, atraumatic Respiratory/Chest: chest wall non-tender, lungs clear Cardiovascular: normal peripheral pulses, normal rate Abdomen: normal bowel sounds, soft, non tender Genitourinary: normal external genitalia Extremities: no cyanosis 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, no motor/sensory deficits Lymphatic: no neck adenopathy Current Medications Medications (Trade) Dose Ordered Sig/Anna Route PRN Reason Start Time Stop Time Status Last Admin Dose Admin Acetaminophen (Tylenol) 650 mg Q4H PRN ORAL Mild Pain/Temp > 100.5 06/28/17 10:15 07/28/17 10:14 06/28/17 10:32 Albuterol/ Ipratropium (Albuterol/ Ipratropium) 3 ml Q6HRT HHN 06/11/17 13:00 06/16/17 23:59 06/15/17 23:54 Azithromycin (Zithromax) 600 mg DAILY ORAL 06/20/17 13:00 07/25/17 12:59 06/29/17 08:36 Docusate Sodium (Colace) 100 mg TWICE A DAY ORAL 06/08/17 18:00 07/08/17 17:59 06/11/17 10:03 Dolutegravir Sodium (Tivicay) 50 mg DAILY ORAL 06/19/17 09:00 07/19/17 08:59 06/29/17 08:36 Emtricitabine/ Tenofovir (Truvada 200/ 300mg) 1 tab DAILY ORAL 06/19/17 11:00 07/19/17 10:59 06/29/17 08:35 Ethambutol HCl (Myambutol) 600 mg DAILY ORAL 06/12/17 14:45 07/12/17 14:44 06/29/17 08:36 Famotidine (Pepcid) 20 mg QHS ORAL 06/23/17 21:00 07/23/17 20:59 06/29/17 08:35 Heparin Sodium (Porcine) (Heparin 5000 units/ml) 5,000 units EVERY 12 HOURS SUBQ 06/23/17 09:00 07/23/17 08:59 06/28/17 20:21 Lactulose (Cephulac) 10 gm THREE TIMES A DAY ORAL 06/08/17 13:00 07/08/17 12:59 06/11/17 10:05 Magnesium Oxide (Mag-Ox 400mg) 500 mg THREE TIMES A DAY ORAL 06/12/17 19:30 07/12/17 19:29 06/29/17 08:35 Multivitamins (Multivitamins) 1 tab DAILY ORAL 05/31/17 09:00 06/30/17 08:59 06/29/17 08:36 Nebivolol (Bystolic) 2.5 mg DAILY ORAL 06/25/17 21:00 07/25/17 20:59 06/29/17 08:35 Phosphorus (Phospha 250 Neutral) 500 mg THREE TIMES A DAY ORAL 06/26/17 13:00 07/26/17 12:59 06/29/17 08:37 Prednisone (predniSONE) 40 mg DAILY ORAL 06/19/17 10:00 07/19/17 09:59 06/29/17 08:37 Rifabutin (Mycobutin) 300 mg DAILY ORAL 06/12/17 14:45 07/12/17 14:44 06/29/17 08:35 Sodium Chloride (NaCl) 1 gm THREE TIMES A DAY ORAL 06/21/17 09:00 07/21/17 08:59 06/29/17 08:35 Thiamine HCl (Vitamin B1) 100 mg DAILY ORAL 05/31/17 09:00 06/30/17 08:59 06/29/17 08:37 Trimethoprim/ Sulfamethoxazole (Bactrim-DS) 1 ea DAILY ORAL 06/24/17 14:00 07/06/17 13:59 06/29/17 08:36 TAMMIE MARY Jun 29, 2017 12:03
--- NOTE | 2017-06-29 12:38 | GI Progress Note ---
Assessment/Plan Problems: (1) Generalized weakness ICD Codes: R53.1 - Weakness SNOMED: 08554859 (2) Anemia ICD Codes: D64.9 - Anemia, unspecified SNOMED: 686321755 (3) Severe protein-calorie malnutrition ICD Codes: E43 - Unspecified severe protein-calorie malnutrition SNOMED: 146164538 (4) Atypical pneumonia ICD Codes: J18.9 - Pneumonia, unspecified organism SNOMED: 363172511 (5) Protein calorie malnutrition ICD Codes: E46 - Unspecified protein-calorie malnutrition SNOMED: 970947414 Qualifiers: Qualified Codes: E44.0 - Moderate protein-calorie malnutrition (6) Diarrhea ICD Codes: R19.7 - Diarrhea, unspecified SNOMED: 35254237 Qualifiers: Qualified Codes: R19.7 - Diarrhea, unspecified Status: stable Status Narrative Discussed with Dr. Gamez. Assessment/Plan CT chest reviewed. cdiff negative iron levels unremarkable HIV positive airborne r/o TB >> negative KUB r/o chronic pancreatitis >> unremarkable OB stool r/o GI bleed >> negative Tissue Transglutaminase IgA r/o celiac >> negative Failure to thrive anorexia anemia - needs repeat H&H PNA MAC infection Diarrhea vs constipation fu ID, oncology recs regular diet, tolerating cont bowel regime monitor H&H, prn transfusions bowel regime ppi folate PO H2B fu labs Subjective Subjective participating with PT Objective Last 24 Hour Vital Signs Date Time Temp Pulse Resp B/P (MAP) Pulse Ox O2 Delivery O2 Flow Rate FiO2 06/29/17 08:00 75 18 130/75 98 Room Air 06/29/17 04:00 98.2 99 20 118/68 99 Room Air 06/29/17 00:00 98.0 89 21 115/70 100 06/28/17 20:00 98.1 98 21 102/59 98 06/28/17 16:00 98.1 99 20 114/72 100 Intake and Output 06/28/17 06/29/17 19:00 07:00 Intake Total 690 ml 300 ml Output Total 400 ml 1100 ml Balance 290 ml -800 ml Intake Oral 690 ml 300 ml Output Urine Total 400 ml 1100 ml # Bowel Movements 1 Height (Feet): 5 Height (Inches): 10.00 Weight (Pounds): 90 General Appearance: WD/WN, no apparent distress, alert, thin Cardiovascular: normal rate Respiratory/Chest: normal breath sounds, no respiratory distress Abdominal Exam: normal bowel sounds, non tender, soft Extremities: non-tender Alyssa Felix N.P. Jun 29, 2017 12:38
[2017-06-29 16:00] VITALS: BP 127/80
[2017-06-29 20:00] VITALS: BP 124/87
--- NOTE | 2017-06-29 23:41 | General Progress Note ---
Assessment/Plan Status: unchanged Assessment/Plan ASSESSMENT/PLAN # Leukopenia 2/2 HIV --> unfortunately has refused bone marrow biopsy, have explained him the risks and of potentially missing a diagnosis such as lymphoma --> bone marrow biopsy completed 06/18/17 and preliminary is negative, --> final results of bone marrow biopsy completed today 06/23, --> pathology revealing neg afb strains, neg granuloma, neg lymphoma, increased iron storages # Anemia 2/2 HIV, watch counts, transfuse if hgb below 7 --> hemoglobin has been >7 --> blood transfusion not required today -->Low folate level, continue PO folate # Anemia 2/2 folic acid deficiency --> on folate p.o. --> Monitor levels. # HIV with very low CD4 count --> vl is high # AFB + for Mycobacterium avium. To be confirmed with bone marrow bx 06/17/17 --> on abx for disseminated MAC --> Negative pathology # MSSA PNA # Interstitial lung disease --> may require lung biopsy # acute hypoxemic RF # severe protein calorie malnutrition # diarrhea, better. C. diff negative. GI following # alcohol dependence # depression Subjective Date patient seen: Jun 28, 2017 Constitutional: Denies: no symptoms, chills, diaphoresis, fever, malaise, weakness, other HEENT: Denies: no symptoms, eye pain, blurred vision, tearing, double vision, ear pain, ear discharge, nose pain, nose congestion, throat pain, throat swelling, mouth pain, mouth swelling, other Cardiovascular: Denies: no symptoms, chest pain, edema, irregular heart rate, lightheadedness, palpitations, syncope, other Respiratory: Denies: no symptoms, cough, orthopnea, shortness of breath, SOB with excertion, SOB at rest, sputum, stridor, wheezing, other Gastrointestinal/Abdominal: Denies: no symptoms, abdomen distended, abdominal pain, black stools, tarry stools, blood in stool, constipated, diarrhea, difficulty swallowing, nausea, poor appetite, poor fluid intake, rectal bleeding , vomiting, other Genitourinary: Denies: no symptoms, burning, discharge, frequency, flank pain, hematuria, incontinence, pain, urgency, other Neurologic/Psychiatric: Denies: no symptoms, anxiety, depressed, emotional problems, headache, numbness, paresthesia, pre-existing deficit, seizure, tingling, tremors, weakness, other Allergies: Coded Allergies: No Known Allergies (Unverified , 05/23/17) Subjective No complaints of pain. H/H stable. No new events overnight. Objective Last 24 Hour Vital Signs Date Time Temp Pulse Resp B/P (MAP) Pulse Ox O2 Delivery O2 Flow Rate FiO2 06/29/17 20:00 98.1 101 21 124/87 100 06/29/17 16:00 98.5 92 18 127/80 100 Room Air 06/29/17 12:00 98.5 99 17 131/87 100 Room Air 06/29/17 08:00 75 18 130/75 98 Room Air 06/29/17 04:00 98.2 99 20 118/68 99 Room Air 06/29/17 00:00 98.0 89 21 115/70 100 Intake and Output 06/28/17 06/29/17 19:00 07:00 Intake Total 690 ml 300 ml Output Total 400 ml 1100 ml Balance 290 ml -800 ml Intake Oral 690 ml 300 ml Output Urine Total 400 ml 1100 ml # Bowel Movements 1 Height (Feet): 5 Height (Inches): 10.00 Weight (Pounds): 90 General Appearance: no apparent distress EENT: normal ENT inspection Neck: normal alignment Cardiovascular: tachycardia Respiratory/Chest: normal breath sounds Nikhil Woodward Jun 29, 2017 23:41
--- NOTE | 2017-06-29 23:56 | Cardiology Progress Note ---
Assessment/Plan Assessment/Plan 1. Sinus tachycardia, persistent, increase dose of Bystolic, LVEF is approximately 50%. 2. Small pericardial effusion,.stable 3. Hypotension, resolved, due to sepsis. 4. Moderate pulmonary HTN could be due to HIV disease. 5. Chronic diastolic CHF, may consider low dose diuretics. Subjective Subjective Clinically the same. No cardiac symptoms. Objective Last 24 Hour Vital Signs Date Time Temp Pulse Resp B/P (MAP) Pulse Ox O2 Delivery O2 Flow Rate FiO2 06/29/17 20:00 98.1 101 21 124/87 100 06/29/17 16:00 98.5 92 18 127/80 100 Room Air 06/29/17 12:00 98.5 99 17 131/87 100 Room Air 06/29/17 08:00 75 18 130/75 98 Room Air 06/29/17 04:00 98.2 99 20 118/68 99 Room Air 06/29/17 00:00 98.0 89 21 115/70 100 Intake and Output 06/28/17 06/29/17 19:00 07:00 Intake Total 690 ml 300 ml Output Total 400 ml 1100 ml Balance 290 ml -800 ml Intake Oral 690 ml 300 ml Output Urine Total 400 ml 1100 ml # Bowel Movements 1 2D Echo: LVEF 50%, Mild AR, Grade II pseudo-normal LV physiology, RVSP 19 mmHg Objective GENERAL: No acute respiratory distress HEENT: Atraumatic, normocephalic, PERRLA, EOMI. NECK: JVP < 5 cm, no carotid bruit. LUNGS: Decreased breath sounds. CARDIOVASCULAR: Regular rate rhythm, tachycardic, normal S1S2, no murmurs, gallops or rubs. ABDOMEN: Soft, nontender, and nondistended. EXTREMITIES: 1+ B/L edema. VIET SCHROEDER Jun 29, 2017 23:56
[2017-06-30] VITALS: BP 124/80
--- NOTE | 2017-06-30 02:14 | General Progress Note ---
Assessment/Plan Status: stable Assessment/Plan ASSESSMENT/PLAN # Leukopenia 2/2 HIV --> unfortunately has refused bone marrow biopsy, have explained him the risks and of potentially missing a diagnosis such as lymphoma --> bone marrow biopsy completed 06/18/17 and preliminary is negative, --> final results of bone marrow biopsy completed today 06/23, --> pathology revealing neg afb strains, neg granuloma, neg lymphoma, increased iron storages # Anemia 2/2 HIV, watch counts, transfuse if hgb below 7 --> hemoglobin has been >7 --> blood transfusion not required today -->Low folate level, continue PO folate # Anemia 2/2 folic acid deficiency --> on folate p.o. --> Monitor levels. # HIV with very low CD4 count --> vl is high # AFB + for Mycobacterium avium. To be confirmed with bone marrow bx 06/17/17 --> on abx for disseminated MAC --> Negative pathology # MSSA PNA # Interstitial lung disease --> may require lung biopsy # acute hypoxemic RF # severe protein calorie malnutrition # diarrhea, better. C. diff negative. GI following # alcohol dependence # depression Subjective Date patient seen: Jun 29, 2017 Constitutional: Denies: no symptoms, chills, diaphoresis, fever, malaise, weakness, other HEENT: Denies: no symptoms, eye pain, blurred vision, tearing, double vision, ear pain, ear discharge, nose pain, nose congestion, throat pain, throat swelling, mouth pain, mouth swelling, other Cardiovascular: Denies: no symptoms, chest pain, edema, irregular heart rate, lightheadedness, palpitations, syncope, other Respiratory: Denies: no symptoms, cough, orthopnea, shortness of breath, SOB with excertion, SOB at rest, sputum, stridor, wheezing, other Gastrointestinal/Abdominal: Denies: no symptoms, abdomen distended, abdominal pain, black stools, tarry stools, blood in stool, constipated, diarrhea, difficulty swallowing, nausea, poor appetite, poor fluid intake, rectal bleeding , vomiting, other Genitourinary: Denies: no symptoms, burning, discharge, frequency, flank pain, hematuria, incontinence, pain, urgency, other Neurologic/Psychiatric: Denies: no symptoms, anxiety, depressed, emotional problems, headache, numbness, paresthesia, pre-existing deficit, seizure, tingling, tremors, weakness, other Allergies: Coded Allergies: No Known Allergies (Unverified , 05/23/17) Subjective No complaints of pain. H/H stable. NAD. No f/c Objective Last 24 Hour Vital Signs Date Time Temp Pulse Resp B/P (MAP) Pulse Ox O2 Delivery O2 Flow Rate FiO2 06/30/17 00:00 98.5 100 21 124/80 95 06/29/17 20:00 98.1 101 21 124/87 100 06/29/17 16:00 98.5 92 18 127/80 100 Room Air 06/29/17 12:00 98.5 99 17 131/87 100 Room Air 06/29/17 08:00 75 18 130/75 98 Room Air 06/29/17 04:00 98.2 99 20 118/68 99 Room Air Intake and Output 06/29/17 06/30/17 19:00 07:00 Intake Total 3450 ml Output Total 2801 ml Balance 649 ml Intake Oral 3450 ml Output Urine Total 2800 ml Stool Total 1 ml Height (Feet): 5 Height (Inches): 10.00 Weight (Pounds): 90 General Appearance: no apparent distress Nikhil Woodward Jun 30, 2017 02:14
[2017-06-30 04:00] VITALS: BP 130/87
[2017-06-30 07:35] LABS: BASOPHILS % (AUTO) 1.2 % (0.0-2.0); EOSINOPHILS % (AUTO) 2.6 % (0.0-3.0); HEMATOCRIT 24.8 % (42.0-52.0); LYMPHOCYTES % (AUTO) 10.7 % (20.0-45.0); MEAN CORPUSCULAR VOLUME 94 FL (80-99); MONOCYTES % (AUTO) 6.1 % (1.0-10.0); NEUTROPHILS % (AUTO) 79.4 % (45.0-75.0); PLATELET COUNT 286 K/UL (150-450); RED BLOOD COUNT 2.63 M/UL (4.70-6.10); RED CELL DISTRIBUTION WIDTH 20.5 % (11.6-14.8); WHITE BLOOD COUNT 10.6 K/UL (4.8-10.8)
[2017-06-30 07:39] LABS: ALANINE AMINOTRANSFERASE 42 U/L (12-78); ALBUMIN 1.8 G/DL (3.4-5.0); ALBUMIN/GLOBULIN RATIO 0.3 (1.0-2.7); ALKALINE PHOSPHATASE 110 U/L (46-116); ANION GAP 2 mmol/L (5-15); ASPARTATE AMINO TRANSFERASE 20 U/L (15-37); BILIRUBIN,TOTAL 0.1 MG/DL (0.2-1.0); BLOOD UREA NITROGEN 17 mg/dL (7-18); CALCIUM 8.5 MG/DL (8.5-10.1); CARBON DIOXIDE 32 MMOL/L (21-32); CHLORIDE 105 MMOL/L (98-107); CREATININE 0.7 MG/DL (0.55-1.30); PHOSPHORUS 1.1 MG/DL (2.5-4.9); POTASSIUM 4.1 MMOL/L (3.5-5.1); SODIUM 139 MMOL/L (136-145)
[2017-06-30 08:00] VITALS: BP 133/87
[2017-06-30] MEDS: Rifabutin 150mg cap ORAL SCH (08:10)
[2017-06-30] MEDS: Azithromycin 600mg Tab ORAL SCH (08:14)
[2017-06-30] MEDS: Magnesium Oxide 400mg tab ORAL SCH ×3 (08:15→17:45)
[2017-06-30] MEDS: Bactrim-DS 1 tab ORAL SCH (08:15)
[2017-06-30] MEDS: Thiamine 100mg tab ORAL SCH (08:16)
[2017-06-30] MEDS: Dolutegravir Sodium 50mg tab ORAL SCH (08:16)
[2017-06-30] MEDS: Sodium Chloride 1gm Tab ORAL SCH ×3 (08:17→17:45)
[2017-06-30] MEDS: Phospha 250 Neutral tab ORAL SCH ×3 (08:18→17:45)
[2017-06-30] MEDS: Docusate 100mg cap ORAL SCH ×2 (08:18→17:37)
[2017-06-30] MEDS: Lactulose 10gm/15ml UDC ORAL SCH ×3 (08:18→17:37)
[2017-06-30] MEDS: Heparin 5000 units/ml inj SUBQ SCH ×2 (08:19→21:18)
[2017-06-30] MEDS ORDERED: Bystolic 2.5mg Tab ORAL SCH (09:00)
--- NOTE | 2017-06-30 11:00 | Infectious Diseases Prog Note ---
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 . Sp Cx : MSSA SP Rx - s/p Bronchoscopy 06/10: friable mucosa, mild mucoid secretions; cx normal [place] -BAL cytology: rare atypical cells. Neg GMS and PCP stain CT of Abd /Bilateral pulmonary alveolar infiltrates consistent with pneumonia.- patient not hypoxic, not febrile- lower suspicion PCP; PCP DFA neg AFBx 3 : Neg ( 3rd from 05/26 not in EMR ) now AFB Cx 06/16 05/25 : +MAC; MTB PCR : Neg T Spot : neg Crytpo and blastomycosis: JOHANNA Neg ; RF + histo ab, Cocci ab : neg CT: Extensive interstitial and airspace parenchymal disease, and honeycomb appearance of much of the lower lobe and right middle lobe interstitial component, HIV/AIDS: first test negative repeat, repeat +; VL 973,150; CD4 unable to be calculated due to low absolute lymphocyte count -repeat CD4 p -HIV genotype: no resistance identified on RT or PI -Hep a immune -Hep b not immune, neg hep C -RPR neg -GC/CL neg - HLA B27 + Chronic diarrhea resolved, now constipated Stool for ova and parasite ( ? sent ) stool Cx : neg ? pancreatic insufficiency due to chronic alcohol abuse. also possibly due to disseminated MAC Elevated ESR , CRP and RF JOHANNA : neg Leukopenia/anemia Anemia and leukopenia PLAN: -Continue tx for suspect disseminated MAC with Azithromycin 600mg qd, Rifabutin 300mg qd and Ethambutol 600mg qd #16 awaiting final AFB bone marrow cx- decision to continue tx if cultures negative up to his new to be outpatient HIV provider as bone marrow biopsy was negative for disseminated MAC -continue Bactrim DS 1 tab qd for PCP ppx -f/u AFB bcx (never collected; reordered 06/22 was cancelled ) -for bone marrow biopsy final cx - Continue Truvada and Dolutegravir ( started 1/5 ) -f/u BAL cx (fungal, AFB), -f/u repeat CD4 as lymphocyte count improving - clinical case manager consulted to start working on HIV clinic to continue HIV and MAC to be set up prior to discharge; risk of readmission if not follow up with a HIV provider upon discharge. -pending discharge to SNF 06/15 Bactrim high dose #4 06/05 SP Ancef d# 10 / 05/30 SP Zithromax d# 5 / 5 06/01 SP ( refusing) Flagyl d# 46 05/27 SP vancomycin, cefepime d# 5, Monitor CBC/CMP f/u Fungal blood Cx Subjective Constitutional: Denies: no symptoms, fever, chills, fatigue, anorexia, drenching sweats, other Allergies: Coded Allergies: No Known Allergies (Unverified , 05/23/17) Subjective afebrile Objective Vital Signs Last 24 Hour Vital Signs Date Time Temp Pulse Resp B/P (MAP) Pulse Ox O2 Delivery O2 Flow Rate FiO2 06/30/17 08:00 97.9 102 18 133/87 97 06/30/17 04:00 98.2 93 21 130/87 100 06/30/17 00:00 98.5 100 21 124/80 95 06/29/17 20:00 98.1 101 21 124/87 100 06/29/17 16:00 98.5 92 18 127/80 100 Room Air 06/29/17 12:00 98.5 99 17 131/87 100 Room Air Height (Feet): 5 Height (Inches): 10.00 Weight (Pounds): 90 Respiratory/Chest: normal breath sounds Cardiovascular: regularly irregular Abdomen: no organomegaly Laboratory Tests Test 06/30/17 06:10 White Blood Count 10.6 K/UL (4.8-10.8) Red Blood Count 2.63 M/UL (4.70-6.10) L Hemoglobin 8.0 G/DL (14.2-18.0) L Hematocrit 24.8 % (42.0-52.0) L Mean Corpuscular Volume 94 FL (80-99) Mean Corpuscular Hemoglobin 30.4 PG (27.0-31.0) Mean Corpuscular Hemoglobin Concent 32.3 G/DL (32.0-36.0) Red Cell Distribution Width 20.5 % (11.6-14.8) H Platelet Count 286 K/UL (150-450) Mean Platelet Volume 6.4 FL (6.5-10.1) L Neutrophils (%) (Auto) 79.4 % (45.0-75.0) H Lymphocytes (%) (Auto) 10.7 % (20.0-45.0) L Monocytes (%) (Auto) 6.1 % (1.0-10.0) Eosinophils (%) (Auto) 2.6 % (0.0-3.0) Basophils (%) (Auto) 1.2 % (0.0-2.0) Sodium Level 139 MMOL/L (136-145) Potassium Level 4.1 MMOL/L (3.5-5.1) Chloride Level 105 MMOL/L (98-107) Carbon Dioxide Level 32 MMOL/L (21-32) Anion Gap 2 mmol/L (5-15) L Blood Urea Nitrogen 17 mg/dL (7-18) Creatinine 0.7 MG/DL (0.55-1.30) Estimat Glomerular Filtration Rate > 60 mL/min (>60) Glucose Level 72 MG/DL (74-106) L Calcium Level 8.5 MG/DL (8.5-10.1) Phosphorus Level 1.1 MG/DL (2.5-4.9) L Magnesium Level 1.4 MG/DL (1.8-2.4) L Total Bilirubin 0.1 MG/DL (0.2-1.0) L Aspartate Amino Transf (AST/SGOT) 20 U/L (15-37) Alanine Aminotransferase (ALT/SGPT) 42 U/L (12-78) Alkaline Phosphatase 110 U/L (46-116) Total Protein 7.1 G/DL (6.4-8.2) Albumin 1.8 G/DL (3.4-5.0) L Globulin 5.3 g/dL Albumin/Globulin Ratio 0.3 (1.0-2.7) L Current Medications Medications (Trade) Dose Ordered Sig/Anna Route PRN Reason Start Time Stop Time Status Last Admin Dose Admin Acetaminophen (Tylenol) 650 mg Q4H PRN ORAL Mild Pain/Temp > 100.5 06/28/17 10:15 07/28/17 10:14 06/28/17 10:32 Albuterol/ Ipratropium (Albuterol/ Ipratropium) 3 ml Q6HRT HHN 06/11/17 13:00 06/16/17 23:59 06/15/17 23:54 Azithromycin (Zithromax) 600 mg DAILY ORAL 06/20/17 13:00 07/25/17 12:59 06/30/17 08:14 Docusate Sodium (Colace) 100 mg TWICE A DAY ORAL 06/08/17 18:00 07/08/17 17:59 06/11/17 10:03 Dolutegravir Sodium (Tivicay) 50 mg DAILY ORAL 06/19/17 09:00 07/19/17 08:59 06/30/17 08:16 Emtricitabine/ Tenofovir (Truvada 200/ 300mg) 1 tab DAILY ORAL 06/19/17 11:00 07/19/17 10:59 06/30/17 08:14 Ethambutol HCl (Myambutol) 600 mg DAILY ORAL 06/12/17 14:45 07/12/17 14:44 06/30/17 08:14 Famotidine (Pepcid) 20 mg QHS ORAL 06/23/17 21:00 07/23/17 20:59 06/29/17 08:35 Heparin Sodium (Porcine) (Heparin 5000 units/ml) 5,000 units EVERY 12 HOURS SUBQ 06/23/17 09:00 07/23/17 08:59 06/29/17 21:34 Lactulose (Cephulac) 10 gm THREE TIMES A DAY ORAL 06/08/17 13:00 07/08/17 12:59 06/11/17 10:05 Magnesium Oxide (Mag-Ox 400mg) 500 mg THREE TIMES A DAY ORAL 06/12/17 19:30 07/12/17 19:29 06/30/17 08:15 Nebivolol (Bystolic) 5 mg DAILY ORAL 06/30/17 09:00 07/30/17 08:59 06/30/17 08:18 Phosphorus (Phospha 250 Neutral) 500 mg THREE TIMES A DAY ORAL 06/26/17 13:00 07/26/17 12:59 06/30/17 08:18 Prednisone (predniSONE) 40 mg DAILY ORAL 06/19/17 10:00 07/19/17 09:59 06/30/17 08:14 Rifabutin (Mycobutin) 300 mg DAILY ORAL 06/12/17 14:45 07/12/17 14:44 06/30/17 08:10 Sodium Chloride (NaCl) 1 gm THREE TIMES A DAY ORAL 06/21/17 09:00 07/21/17 08:59 06/30/17 08:17 Trimethoprim/ Sulfamethoxazole (Bactrim-DS) 1 ea DAILY ORAL 06/24/17 14:00 07/06/17 13:59 06/30/17 08:15 AMARIS BRIGGS M.D. Jun 30, 2017 11:00
[2017-06-30 12:00] VITALS: BP 167/69
--- NOTE | 2017-06-30 15:52 | Pulmonology Progress Note ---
Assessment/Plan Problems: (1) Atypical pneumonia (2) Severe protein-calorie malnutrition (3) Interstitial lung disease (4) Diarrhea Assessment/Plan improving Continue MAC treatment Will need snif placement getting stronger, doesn't want any blood transfusion dc planning in process Subjective ROS Limited/Unobtainable: No Constitutional: Reports: no symptoms HEENT: Repors: no symptoms Respiratory: Reports: no symptoms Allergies: Coded Allergies: No Known Allergies (Unverified , 05/23/17) Objective Last 24 Hour Vital Signs Date Time Temp Pulse Resp B/P (MAP) Pulse Ox O2 Delivery O2 Flow Rate FiO2 06/30/17 12:00 97.0 102 20 167/69 97 06/30/17 08:00 97.9 102 18 133/87 97 06/30/17 04:00 98.2 93 21 130/87 100 06/30/17 00:00 98.5 100 21 124/80 95 06/29/17 20:00 98.1 101 21 124/87 100 06/29/17 16:00 98.5 92 18 127/80 100 Room Air Intake and Output 06/29/17 06/30/17 19:00 07:00 Intake Total 3450 ml Output Total 2801 ml 800 ml Balance 649 ml -800 ml Intake Oral 3450 ml Output Urine Total 2800 ml 800 ml Stool Total 1 ml # Bowel Movements 1 Objective General Appearance: WD/WN HEENT: normocephalic, atraumatic Respiratory/Chest: chest wall non-tender, lungs clear Cardiovascular: normal peripheral pulses, normal rate Abdomen: normal bowel sounds, soft, non tender Genitourinary: normal external genitalia Extremities: no cyanosis Neurologic/Psychiatric: appointment scheduler II-XII 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, no motor/sensory deficits Lymphatic: no neck adenopathy Laboratory Tests 06/30/17 06:10: White Blood Count 10.6, Red Blood Count 2.63L, Hemoglobin 8.0L, Hematocrit 24.8L , Mean Corpuscular Volume 94, Mean Corpuscular Hemoglobin 30.4, Mean Corpuscular Hemoglobin Concent 32.3, Red Cell Distribution Width 20.5H, Platelet Count 286, Mean Platelet Volume 6.4L, Neutrophils (%) (Auto) 79.4H, Lymphocytes (%) (Auto) 10.7L, Monocytes (%) (Auto) 6.1, Eosinophils (%) (Auto) 2.6, Basophils (%) (Auto) 1.2, Sodium Level 139, Potassium Level 4.1, Chloride Level 105, Carbon Dioxide Level 32, Anion Gap 2L, Blood Urea Nitrogen 17, Creatinine 0.7, Estimat Glomerular Filtration Rate > 60, Glucose Level 72L, Calcium Level 8.5, Phosphorus Level 1.1L, Magnesium Level 1.4L, Total Bilirubin 0.1L, Aspartate Amino Transf (AST/SGOT) 20, Alanine Aminotransferase (ALT/SGPT) 42, Alkaline Phosphatase 110, Total Protein 7.1, Albumin 1.8L, Globulin 5.3, Albumin/Globulin Ratio 0.3L Current Medications Medications (Trade) Dose Ordered Sig/Anna Route PRN Reason Start Time Stop Time Status Last Admin Dose Admin Acetaminophen (Tylenol) 650 mg Q4H PRN ORAL Mild Pain/Temp > 100.5 06/28/17 10:15 07/28/17 10:14 06/28/17 10:32 Albuterol/ Ipratropium (Albuterol/ Ipratropium) 3 ml Q6HRT HHN 06/11/17 13:00 06/16/17 23:59 06/15/17 23:54 Azithromycin (Zithromax) 600 mg DAILY ORAL 06/20/17 13:00 07/25/17 12:59 06/30/17 08:14 Docusate Sodium (Colace) 100 mg TWICE A DAY ORAL 06/08/17 18:00 07/08/17 17:59 06/11/17 10:03 Dolutegravir Sodium (Tivicay) 50 mg DAILY ORAL 06/19/17 09:00 07/19/17 08:59 06/30/17 08:16 Emtricitabine/ Tenofovir (Truvada 200/ 300mg) 1 tab DAILY ORAL 06/19/17 11:00 07/19/17 10:59 06/30/17 08:14 Ethambutol HCl (Myambutol) 600 mg DAILY ORAL 06/12/17 14:45 07/12/17 14:44 06/30/17 08:14 Famotidine (Pepcid) 20 mg QHS ORAL 06/23/17 21:00 07/23/17 20:59 06/29/17 08:35 Heparin Sodium (Porcine) (Heparin 5000 units/ml) 5,000 units EVERY 12 HOURS SUBQ 06/23/17 09:00 07/23/17 08:59 06/29/17 21:34 Lactulose (Cephulac) 10 gm THREE TIMES A DAY ORAL 06/08/17 13:00 07/08/17 12:59 06/11/17 10:05 Magnesium Oxide (Mag-Ox 400mg) 500 mg THREE TIMES A DAY ORAL 06/12/17 19:30 07/12/17 19:29 06/30/17 12:42 Nebivolol (Bystolic) 5 mg DAILY ORAL 06/30/17 09:00 07/30/17 08:59 06/30/17 08:18 Phosphorus (Phospha 250 Neutral) 500 mg THREE TIMES A DAY ORAL 06/26/17 13:00 07/26/17 12:59 06/30/17 12:41 Prednisone (predniSONE) 40 mg DAILY ORAL 06/19/17 10:00 07/19/17 09:59 06/30/17 08:14 Rifabutin (Mycobutin) 300 mg DAILY ORAL 06/12/17 14:45 07/12/17 14:44 06/30/17 08:10 Sodium Chloride (NaCl) 1 gm THREE TIMES A DAY ORAL 06/21/17 09:00 07/21/17 08:59 06/30/17 12:41 Trimethoprim/ Sulfamethoxazole (Bactrim-DS) 1 ea DAILY ORAL 06/24/17 14:00 07/06/17 13:59 06/30/17 08:15 TAMMIE MARY Jun 30, 2017 15:52
[2017-06-30 15:54] VITALS: BP 133/79
--- NOTE | 2017-06-30 16:32 | GI Progress Note ---
Assessment/Plan Problems: (1) Generalized weakness ICD Codes: R53.1 - Weakness SNOMED: 26368148 (2) Anemia ICD Codes: D64.9 - Anemia, unspecified SNOMED: 981762165 (3) Severe protein-calorie malnutrition ICD Codes: E43 - Unspecified severe protein-calorie malnutrition SNOMED: 262250159 (4) Atypical pneumonia ICD Codes: J18.9 - Pneumonia, unspecified organism SNOMED: 397049608 (5) Protein calorie malnutrition ICD Codes: E46 - Unspecified protein-calorie malnutrition SNOMED: 315687981 Qualifiers: Qualified Codes: E44.0 - Moderate protein-calorie malnutrition (6) Diarrhea ICD Codes: R19.7 - Diarrhea, unspecified SNOMED: 51345708 Qualifiers: Qualified Codes: R19.7 - Diarrhea, unspecified Status: progressing Status Narrative Discussed with Dr. Gamez. Assessment/Plan CT chest reviewed. cdiff negative iron levels unremarkable HIV positive airborne r/o TB >> negative KUB r/o chronic pancreatitis >> unremarkable OB stool r/o GI bleed >> negative Tissue Transglutaminase IgA r/o celiac >> negative Failure to thrive anorexia anemia - needs repeat H&H PNA MAC infection Diarrhea vs constipation fu ID, oncology recs regular diet, tolerating cont bowel regime monitor H&H, prn transfusions bowel regime ppi folate PO H2B fu labs Subjective Subjective participating with PT Objective Last 24 Hour Vital Signs Date Time Temp Pulse Resp B/P (MAP) Pulse Ox O2 Delivery O2 Flow Rate FiO2 06/30/17 15:54 98.6 102 21 133/79 97 Room Air 06/30/17 12:00 97.0 102 20 167/69 97 06/30/17 08:00 97.9 102 18 133/87 97 06/30/17 04:00 98.2 93 21 130/87 100 06/30/17 00:00 98.5 100 21 124/80 95 06/29/17 20:00 98.1 101 21 124/87 100 Intake and Output 06/29/17 06/30/17 19:00 07:00 Intake Total 3450 ml Output Total 2801 ml 800 ml Balance 649 ml -800 ml Intake Oral 3450 ml Output Urine Total 2800 ml 800 ml Stool Total 1 ml # Bowel Movements 1 Laboratory Tests Test 06/30/17 06:10 White Blood Count 10.6 K/UL (4.8-10.8) Red Blood Count 2.63 M/UL (4.70-6.10) L Hemoglobin 8.0 G/DL (14.2-18.0) L Hematocrit 24.8 % (42.0-52.0) L Mean Corpuscular Volume 94 FL (80-99) Mean Corpuscular Hemoglobin 30.4 PG (27.0-31.0) Mean Corpuscular Hemoglobin Concent 32.3 G/DL (32.0-36.0) Red Cell Distribution Width 20.5 % (11.6-14.8) H Platelet Count 286 K/UL (150-450) Mean Platelet Volume 6.4 FL (6.5-10.1) L Neutrophils (%) (Auto) 79.4 % (45.0-75.0) H Lymphocytes (%) (Auto) 10.7 % (20.0-45.0) L Monocytes (%) (Auto) 6.1 % (1.0-10.0) Eosinophils (%) (Auto) 2.6 % (0.0-3.0) Basophils (%) (Auto) 1.2 % (0.0-2.0) Sodium Level 139 MMOL/L (136-145) Potassium Level 4.1 MMOL/L (3.5-5.1) Chloride Level 105 MMOL/L (98-107) Carbon Dioxide Level 32 MMOL/L (21-32) Anion Gap 2 mmol/L (5-15) L Blood Urea Nitrogen 17 mg/dL (7-18) Creatinine 0.7 MG/DL (0.55-1.30) Estimat Glomerular Filtration Rate > 60 mL/min (>60) Glucose Level 72 MG/DL (74-106) L Calcium Level 8.5 MG/DL (8.5-10.1) Phosphorus Level 1.1 MG/DL (2.5-4.9) L Magnesium Level 1.4 MG/DL (1.8-2.4) L Total Bilirubin 0.1 MG/DL (0.2-1.0) L Aspartate Amino Transf (AST/SGOT) 20 U/L (15-37) Alanine Aminotransferase (ALT/SGPT) 42 U/L (12-78) Alkaline Phosphatase 110 U/L (46-116) Total Protein 7.1 G/DL (6.4-8.2) Albumin 1.8 G/DL (3.4-5.0) L Globulin 5.3 g/dL Albumin/Globulin Ratio 0.3 (1.0-2.7) L Height (Feet): 5 Height (Inches): 10.00 Weight (Pounds): 90 General Appearance: WD/WN, no apparent distress, alert Cardiovascular: normal rate Respiratory/Chest: normal breath sounds, no respiratory distress Abdominal Exam: normal bowel sounds, non tender, soft Extremities: normal range of motion, non-tender Alyssa Felix N.P. Jun 30, 2017 16:32
[2017-06-30 20:00] VITALS: BP 130/87
--- NOTE | 2017-06-30 21:45 | Cardiology Progress Note ---
Assessment/Plan Assessment/Plan 1. Sinus tachycardia, persistent, continue Bystolic, LVEF is approximately 50%. 2. Small pericardial effusion, stable 3. Hypotension, resolved, due to sepsis. 4. Moderate pulmonary HTN, could be due to HIV disease. 5. Chronic diastolic CHF, may consider low dose diuretics. Subjective Subjective Not on the telemetry unit. No cardiac symptoms. Objective Last 24 Hour Vital Signs Date Time Temp Pulse Resp B/P (MAP) Pulse Ox O2 Delivery O2 Flow Rate FiO2 06/30/17 15:54 98.6 102 21 133/79 97 Room Air 06/30/17 12:00 97.0 102 20 167/69 97 06/30/17 08:00 97.9 102 18 133/87 97 06/30/17 04:00 98.2 93 21 130/87 100 06/30/17 00:00 98.5 100 21 124/80 95 Intake and Output 06/29/17 06/30/17 19:00 07:00 Intake Total 3450 ml Output Total 2801 ml 800 ml Balance 649 ml -800 ml Intake Oral 3450 ml Output Urine Total 2800 ml 800 ml Stool Total 1 ml # Bowel Movements 1 2D Echo: LVEF 50%, Mild AR, Grade II pseudo-normal LV physiology, RVSP 19 mmHg Laboratory Tests Test 06/30/17 06:10 White Blood Count 10.6 K/UL (4.8-10.8) Red Blood Count 2.63 M/UL (4.70-6.10) L Hemoglobin 8.0 G/DL (14.2-18.0) L Hematocrit 24.8 % (42.0-52.0) L Mean Corpuscular Volume 94 FL (80-99) Mean Corpuscular Hemoglobin 30.4 PG (27.0-31.0) Mean Corpuscular Hemoglobin Concent 32.3 G/DL (32.0-36.0) Red Cell Distribution Width 20.5 % (11.6-14.8) H Platelet Count 286 K/UL (150-450) Mean Platelet Volume 6.4 FL (6.5-10.1) L Neutrophils (%) (Auto) 79.4 % (45.0-75.0) H Lymphocytes (%) (Auto) 10.7 % (20.0-45.0) L Monocytes (%) (Auto) 6.1 % (1.0-10.0) Eosinophils (%) (Auto) 2.6 % (0.0-3.0) Basophils (%) (Auto) 1.2 % (0.0-2.0) Sodium Level 139 MMOL/L (136-145) Potassium Level 4.1 MMOL/L (3.5-5.1) Chloride Level 105 MMOL/L (98-107) Carbon Dioxide Level 32 MMOL/L (21-32) Anion Gap 2 mmol/L (5-15) L Blood Urea Nitrogen 17 mg/dL (7-18) Creatinine 0.7 MG/DL (0.55-1.30) Estimat Glomerular Filtration Rate > 60 mL/min (>60) Glucose Level 72 MG/DL (74-106) L Calcium Level 8.5 MG/DL (8.5-10.1) Phosphorus Level 1.1 MG/DL (2.5-4.9) L Magnesium Level 1.4 MG/DL (1.8-2.4) L Total Bilirubin 0.1 MG/DL (0.2-1.0) L Aspartate Amino Transf (AST/SGOT) 20 U/L (15-37) Alanine Aminotransferase (ALT/SGPT) 42 U/L (12-78) Alkaline Phosphatase 110 U/L (46-116) Total Protein 7.1 G/DL (6.4-8.2) Albumin 1.8 G/DL (3.4-5.0) L Globulin 5.3 g/dL Albumin/Globulin Ratio 0.3 (1.0-2.7) L Objective GENERAL: No acute respiratory distress HEENT: Atraumatic, normocephalic, PERRLA, EOMI. NECK: JVP < 5 cm, no carotid bruit. LUNGS: Decreased breath sounds. CARDIOVASCULAR: Regular rate rhythm, tachycardic, normal S1S2, no murmurs, gallops or rubs. ABDOMEN: Soft, nontender, and nondistended. EXTREMITIES: 1+ B/L edema. VIET SCHROEDER Jun 30, 2017 21:45
--- NOTE | 2017-06-30 21:57 | General Progress Note ---
Assessment/Plan Status: stable Assessment/Plan ASSESSMENT/PLAN # Leukopenia 2/2 HIV --> unfortunately has refused bone marrow biopsy, have explained him the risks and of potentially missing a diagnosis such as lymphoma --> bone marrow biopsy completed 06/18/17 and preliminary is negative, --> final results of bone marrow biopsy completed today 06/23, --> pathology revealing neg afb strains, neg granuloma, neg lymphoma, increased iron storages --> Has resolved. # Anemia 2/2 HIV, watch counts, transfuse if hgb below 7 --> hemoglobin has been >7 --> blood transfusion not required today, currently 8.0 -->Low folate level, continue PO folate # Anemia 2/2 folic acid deficiency --> on folate p.o. --> Monitor levels. # HIV with very low CD4 count --> vl is high # AFB + for Mycobacterium avium. To be confirmed with bone marrow bx 06/17/17 --> on abx for disseminated MAC --> Negative pathology # MSSA PNA # Interstitial lung disease --> may require lung biopsy # acute hypoxemic RF # severe protein calorie malnutrition # diarrhea, better. C. diff negative. GI following # alcohol dependence # depression Subjective Date patient seen: Jun 30, 2017 Constitutional: Denies: no symptoms, chills, diaphoresis, fever, malaise, weakness, other HEENT: Denies: no symptoms, eye pain, blurred vision, tearing, double vision, ear pain, ear discharge, nose pain, nose congestion, throat pain, throat swelling, mouth pain, mouth swelling, other Cardiovascular: Denies: no symptoms, chest pain, edema, irregular heart rate, lightheadedness, palpitations, syncope, other Respiratory: Denies: no symptoms, cough, orthopnea, shortness of breath, SOB with excertion, SOB at rest, sputum, stridor, wheezing, other Gastrointestinal/Abdominal: Denies: no symptoms, abdomen distended, abdominal pain, black stools, tarry stools, blood in stool, constipated, diarrhea, difficulty swallowing, nausea, poor appetite, poor fluid intake, rectal bleeding , vomiting, other Hematologic/Lymphatic: Reports: anemia Allergies: Coded Allergies: No Known Allergies (Unverified , 05/23/17) Subjective No major events. Leukopenia resolved. No acute distress. Objective Last 24 Hour Vital Signs Date Time Temp Pulse Resp B/P (MAP) Pulse Ox O2 Delivery O2 Flow Rate FiO2 06/30/17 15:54 98.6 102 21 133/79 97 Room Air 06/30/17 12:00 97.0 102 20 167/69 97 06/30/17 08:00 97.9 102 18 133/87 97 06/30/17 04:00 98.2 93 21 130/87 100 06/30/17 00:00 98.5 100 21 124/80 95 Intake and Output 06/29/17 06/30/17 19:00 07:00 Intake Total 3450 ml Output Total 2801 ml 800 ml Balance 649 ml -800 ml Intake Oral 3450 ml Output Urine Total 2800 ml 800 ml Stool Total 1 ml # Bowel Movements 1 Laboratory Tests 06/30/17 06:10: White Blood Count 10.6, Red Blood Count 2.63L, Hemoglobin 8.0L, Hematocrit 24.8L , Mean Corpuscular Volume 94, Mean Corpuscular Hemoglobin 30.4, Mean Corpuscular Hemoglobin Concent 32.3, Red Cell Distribution Width 20.5H, Platelet Count 286, Mean Platelet Volume 6.4L, Neutrophils (%) (Auto) 79.4H, Lymphocytes (%) (Auto) 10.7L, Monocytes (%) (Auto) 6.1, Eosinophils (%) (Auto) 2.6, Basophils (%) (Auto) 1.2, Sodium Level 139, Potassium Level 4.1, Chloride Level 105, Carbon Dioxide Level 32, Anion Gap 2L, Blood Urea Nitrogen 17, Creatinine 0.7, Estimat Glomerular Filtration Rate > 60, Glucose Level 72L, Calcium Level 8.5, Phosphorus Level 1.1L, Magnesium Level 1.4L, Total Bilirubin 0.1L, Aspartate Amino Transf (AST/SGOT) 20, Alanine Aminotransferase (ALT/SGPT) 42, Alkaline Phosphatase 110, Total Protein 7.1, Albumin 1.8L, Globulin 5.3, Albumin/Globulin Ratio 0.3L Height (Feet): 5 Height (Inches): 10.00 Weight (Pounds): 90 General Appearance: no apparent distress Respiratory/Chest: decreased breath sounds Abdomen: non tender, soft Skin: warm/dry Nikhil Woodward Jun 30, 2017 21:57
[2017-07-01] VITALS: BP 113/73
[2017-07-01 04:00] VITALS: BP 120/77
[2017-07-01 08:28] VITALS: BP 130/80
[2017-07-01] MEDS: Phospha 250 Neutral tab ORAL SCH ×3 (08:58→17:31)
[2017-07-01] MEDS: Bactrim-DS 1 tab ORAL SCH (08:58)
[2017-07-01] MEDS: Lactulose 10gm/15ml UDC ORAL SCH ×3 (09:00→17:31)
[2017-07-01] MEDS: Heparin 5000 units/ml inj SUBQ SCH ×2 (09:00→20:30)
[2017-07-01] MEDS: Docusate 100mg cap ORAL SCH ×2 (09:00→17:32)
[2017-07-01] MEDS: Sodium Chloride 1gm Tab ORAL SCH ×3 (09:00→17:31)
[2017-07-01] MEDS: Dolutegravir Sodium 50mg tab ORAL SCH (09:01)
[2017-07-01] MEDS: Rifabutin 150mg cap ORAL SCH (09:02)
[2017-07-01] MEDS: Magnesium Oxide 400mg tab ORAL SCH ×3 (09:04→17:31)
[2017-07-01] MEDS: Azithromycin 600mg Tab ORAL SCH (09:05)
--- NOTE | 2017-07-01 11:07 | GI Progress Note ---
Assessment/Plan Problems: (1) Generalized weakness ICD Codes: R53.1 - Weakness SNOMED: 38807286 (2) Anemia ICD Codes: D64.9 - Anemia, unspecified SNOMED: 676042593 (3) Severe protein-calorie malnutrition ICD Codes: E43 - Unspecified severe protein-calorie malnutrition SNOMED: 599969425 (4) Atypical pneumonia ICD Codes: J18.9 - Pneumonia, unspecified organism SNOMED: 642095358 (5) Protein calorie malnutrition ICD Codes: E46 - Unspecified protein-calorie malnutrition SNOMED: 516353190 Qualifiers: Qualified Codes: E44.0 - Moderate protein-calorie malnutrition (6) Diarrhea ICD Codes: R19.7 - Diarrhea, unspecified SNOMED: 63832956 Qualifiers: Qualified Codes: R19.7 - Diarrhea, unspecified Status: doing well, stable, progressing Status Narrative Discussed with Dr. Gamez. Assessment/Plan CT chest reviewed. cdiff negative iron levels unremarkable HIV positive airborne r/o TB >> negative KUB r/o chronic pancreatitis >> unremarkable OB stool r/o GI bleed >> negative Tissue Transglutaminase IgA r/o celiac >> negative Failure to thrive anorexia anemia - needs repeat H&H PNA MAC infection Diarrhea vs constipation fu ID, oncology recs regular diet, tolerating cont bowel regime monitor H&H, prn transfusions bowel regime ppi folate PO PT/OT evaluation H2B fu labs Subjective Gastrointestinal/Abdominal: Reports: no symptoms Subjective refusing labs Objective Last 24 Hour Vital Signs Date Time Temp Pulse Resp B/P (MAP) Pulse Ox O2 Delivery O2 Flow Rate FiO2 07/01/17 08:28 97.7 88 20 130/80 88 07/01/17 04:00 98.2 84 20 120/77 100 07/01/17 00:00 97.9 90 20 113/73 99 06/30/17 20:00 98.0 98 21 130/87 100 06/30/17 15:54 98.6 102 21 133/79 97 Room Air 06/30/17 12:00 97.0 102 20 167/69 97 Intake and Output 06/30/17 07/01/17 19:00 07:00 Intake Total 2180 ml Output Total 2900 ml 1200 ml Balance -720 ml -1200 ml Intake Oral 2180 ml Output Urine Total 2900 ml 1200 ml # Voids 4 # Bowel Movements 1 1 Height (Feet): 5 Height (Inches): 10.00 Weight (Pounds): 90 General Appearance: no apparent distress, alert, thin Cardiovascular: normal rate Respiratory/Chest: normal breath sounds, no respiratory distress Abdominal Exam: normal bowel sounds, non tender, soft Extremities: normal range of motion Alyssa Felix N.P. Jul 01, 2017 11:07
[2017-07-01 11:28] VITALS: BP 108/72
--- NOTE | 2017-07-01 11:35 | Infectious Diseases Prog Note ---
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 . Sp Cx : MSSA SP Rx - s/p Bronchoscopy 06/10: friable mucosa, mild mucoid secretions; cx normal [place] -BAL cytology: rare atypical cells. Neg GMS and PCP stain CT of Abd /Bilateral pulmonary alveolar infiltrates consistent with pneumonia.- patient not hypoxic, not febrile- lower suspicion PCP; PCP DFA neg AFBx 3 : Neg ( 3rd from 05/26 not in EMR ) now AFB Cx 06/16 05/25 : +MAC; MTB PCR : Neg T Spot : neg Crytpo and blastomycosis: JOHANNA Neg ; RF + histo ab, Cocci ab : neg CT: Extensive interstitial and airspace parenchymal disease, and honeycomb appearance of much of the lower lobe and right middle lobe interstitial component, HIV/AIDS: first test negative repeat, repeat +; VL 973,150; CD4 unable to be calculated due to low absolute lymphocyte count -repeat CD4 p -HIV genotype: no resistance identified on RT or PI -Hep a immune -Hep b not immune, neg hep C -RPR neg -GC/CL neg - HLA B27 + Chronic diarrhea resolved, now constipated Stool for ova and parasite ( ? sent ) stool Cx : neg ? pancreatic insufficiency due to chronic alcohol abuse. also possibly due to disseminated MAC Elevated ESR , CRP and RF JOHANNA : neg Leukopenia/anemia Anemia and leukopenia PLAN: -Continue tx for suspect disseminated MAC with Azithromycin 600mg qd, Rifabutin 300mg qd and Ethambutol 600mg qd #17 awaiting final AFB bone marrow cx- decision to continue tx if cultures negative up to his new to be outpatient HIV provider as bone marrow biopsy was negative for disseminated MAC -continue Bactrim DS 1 tab qd for PCP ppx -f/u AFB bcx (never collected; reordered 06/22 was cancelled ) -for bone marrow biopsy final cx - Continue Truvada and Dolutegravir ( started 1/5 ) -f/u BAL cx (fungal, AFB), -f/u repeat CD4 as lymphocyte count improving - case resolution specialist consulted to start working on HIV clinic to continue HIV and MAC to be set up prior to discharge; risk of readmission if not follow up with a HIV provider upon discharge. -pending discharge to SNF 06/15 Bactrim high dose #4 06/05 SP Ancef d# 10 / 10 05/30 SP Zithromax d# 5 / 5 06/01 SP ( refusing) Flagyl d# 46 05/27 SP vancomycin, cefepime d# 5, Monitor CBC/CMP f/u Fungal blood Cx Subjective Allergies: Coded Allergies: No Known Allergies (Unverified , 05/23/17) Subjective afebrile Objective Vital Signs Last 24 Hour Vital Signs Date Time Temp Pulse Resp B/P (MAP) Pulse Ox O2 Delivery O2 Flow Rate FiO2 07/01/17 11:28 97.6 102 19 108/72 99 07/01/17 08:28 97.7 88 20 130/80 88 07/01/17 04:00 98.2 84 20 120/77 100 07/01/17 00:00 97.9 90 20 113/73 99 06/30/17 20:00 98.0 98 21 130/87 100 06/30/17 15:54 98.6 102 21 133/79 97 Room Air 06/30/17 12:00 97.0 102 20 167/69 97 Height (Feet): 5 Height (Inches): 10.00 Weight (Pounds): 90 HEENT: atraumatic Respiratory/Chest: no accessory muscle use Cardiovascular: regular rhythm Abdomen: no organomegaly Current Medications Medications (Trade) Dose Ordered Sig/Anna Route PRN Reason Start Time Stop Time Status Last Admin Dose Admin Acetaminophen (Tylenol) 650 mg Q4H PRN ORAL Mild Pain/Temp > 100.5 06/28/17 10:15 07/28/17 10:14 06/28/17 10:32 Albuterol/ Ipratropium (Albuterol/ Ipratropium) 3 ml Q6HRT HHN 06/11/17 13:00 06/16/17 23:59 06/15/17 23:54 Azithromycin (Zithromax) 600 mg DAILY ORAL 06/20/17 13:00 07/25/17 12:59 07/01/17 09:05 Docusate Sodium (Colace) 100 mg TWICE A DAY ORAL 06/08/17 18:00 07/08/17 17:59 06/11/17 10:03 Dolutegravir Sodium (Tivicay) 50 mg DAILY ORAL 06/19/17 09:00 07/19/17 08:59 07/01/17 09:01 Emtricitabine/ Tenofovir (Truvada 200/ 300mg) 1 tab DAILY ORAL 06/19/17 11:00 07/19/17 10:59 07/01/17 09:05 Ethambutol HCl (Myambutol) 600 mg DAILY ORAL 06/12/17 14:45 07/12/17 14:44 07/01/17 09:03 Famotidine (Pepcid) 20 mg QHS ORAL 06/23/17 21:00 07/23/17 20:59 06/30/17 21:18 Heparin Sodium (Porcine) (Heparin 5000 units/ml) 5,000 units EVERY 12 HOURS SUBQ 06/23/17 09:00 07/23/17 08:59 06/30/17 21:18 Lactulose (Cephulac) 10 gm THREE TIMES A DAY ORAL 06/08/17 13:00 07/08/17 12:59 06/11/17 10:05 Magnesium Oxide (Mag-Ox 400mg) 500 mg THREE TIMES A DAY ORAL 06/12/17 19:30 07/12/17 19:29 07/01/17 09:04 Nebivolol (Bystolic) 10 mg DAILY ORAL 07/01/17 09:00 07/31/17 08:59 07/01/17 08:59 Phosphorus (Phospha 250 Neutral) 500 mg THREE TIMES A DAY ORAL 06/26/17 13:00 07/26/17 12:59 07/01/17 08:58 Prednisone (predniSONE) 40 mg DAILY ORAL 06/19/17 10:00 07/19/17 09:59 07/01/17 09:06 Rifabutin (Mycobutin) 300 mg DAILY ORAL 06/12/17 14:45 07/12/17 14:44 07/01/17 09:02 Sodium Chloride (NaCl) 1 gm THREE TIMES A DAY ORAL 06/21/17 09:00 07/21/17 08:59 06/30/17 17:45 Trimethoprim/ Sulfamethoxazole (Bactrim-DS) 1 tab DAILY ORAL 07/02/17 09:00 07/06/17 08:59 AMARIS BRIGGS M.D. Jul 01, 2017 11:35
[2017-07-01] MEDS ORDERED: Sodium Phosphate 30 MM in NS 275 ML IV ONE (12:45)
[2017-07-01 16:00] VITALS: BP 118/76
--- NOTE | 2017-07-01 16:42 | Pulmonology Progress Note ---
Assessment/Plan Problems: (1) Atypical pneumonia (2) Severe protein-calorie malnutrition (3) Interstitial lung disease (4) Diarrhea Assessment/Plan improving Continue MAC treatment Will need snif placement getting stronger, doesn't want any blood transfusion dc planning in process Subjective ROS Limited/Unobtainable: No Constitutional: Reports: no symptoms HEENT: Repors: no symptoms Respiratory: Reports: no symptoms Allergies: Coded Allergies: No Known Allergies (Unverified , 05/23/17) Objective Last 24 Hour Vital Signs Date Time Temp Pulse Resp B/P (MAP) Pulse Ox O2 Delivery O2 Flow Rate FiO2 07/01/17 16:00 98.1 95 20 118/76 98 07/01/17 11:28 97.6 102 19 108/72 99 07/01/17 08:28 97.7 88 20 130/80 88 07/01/17 04:00 98.2 84 20 120/77 100 07/01/17 00:00 97.9 90 20 113/73 99 06/30/17 20:00 98.0 98 21 130/87 100 Intake and Output 06/30/17 07/01/17 19:00 07:00 Intake Total 2180 ml Output Total 2900 ml 1200 ml Balance -720 ml -1200 ml Intake Oral 2180 ml Output Urine Total 2900 ml 1200 ml # Voids 4 # Bowel Movements 1 1 Objective General Appearance: WD/WN HEENT: normocephalic, atraumatic Respiratory/Chest: chest wall non-tender, lungs clear Cardiovascular: normal peripheral pulses, normal rate Abdomen: normal bowel sounds, soft, non tender Genitourinary: normal external genitalia Extremities: no cyanosis Neurologic/Psychiatric: 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 wheeler II-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, no motor/sensory deficits Lymphatic: no neck adenopathy Current Medications Medications (Trade) Dose Ordered Sig/Anna Route PRN Reason Start Time Stop Time Status Last Admin Dose Admin Acetaminophen (Tylenol) 650 mg Q4H PRN ORAL Mild Pain/Temp > 100.5 06/28/17 10:15 07/28/17 10:14 06/28/17 10:32 Albuterol/ Ipratropium (Albuterol/ Ipratropium) 3 ml Q6HRT HHN 06/11/17 13:00 06/16/17 23:59 06/15/17 23:54 Azithromycin (Zithromax) 600 mg DAILY ORAL 06/20/17 13:00 07/25/17 12:59 07/01/17 09:05 Docusate Sodium (Colace) 100 mg TWICE A DAY ORAL 06/08/17 18:00 07/08/17 17:59 06/11/17 10:03 Dolutegravir Sodium (Tivicay) 50 mg DAILY ORAL 06/19/17 09:00 07/19/17 08:59 07/01/17 09:01 Emtricitabine/ Tenofovir (Truvada 200/ 300mg) 1 tab DAILY ORAL 06/19/17 11:00 07/19/17 10:59 07/01/17 09:05 Ethambutol HCl (Myambutol) 600 mg DAILY ORAL 06/12/17 14:45 07/12/17 14:44 07/01/17 09:03 Famotidine (Pepcid) 20 mg QHS ORAL 06/23/17 21:00 07/23/17 20:59 06/30/17 21:18 Heparin Sodium (Porcine) (Heparin 5000 units/ml) 5,000 units EVERY 12 HOURS SUBQ 06/23/17 09:00 07/23/17 08:59 06/30/17 21:18 Lactulose (Cephulac) 10 gm THREE TIMES A DAY ORAL 06/08/17 13:00 07/08/17 12:59 06/11/17 10:05 Magnesium Oxide (Mag-Ox 400mg) 500 mg THREE TIMES A DAY ORAL 06/12/17 19:30 07/12/17 19:29 07/01/17 13:11 Nebivolol (Bystolic) 10 mg DAILY ORAL 07/01/17 09:00 07/31/17 08:59 07/01/17 08:59 Phosphorus (Phospha 250 Neutral) 500 mg THREE TIMES A DAY ORAL 06/26/17 13:00 07/26/17 12:59 07/01/17 13:11 Prednisone (predniSONE) 40 mg DAILY ORAL 06/19/17 10:00 07/19/17 09:59 07/01/17 09:06 Rifabutin (Mycobutin) 300 mg DAILY ORAL 06/12/17 14:45 07/12/17 14:44 07/01/17 09:02 Sodium Chloride (NaCl) 1 gm THREE TIMES A DAY ORAL 06/21/17 09:00 07/21/17 08:59 06/30/17 17:45 Trimethoprim/ Sulfamethoxazole (Bactrim-DS) 1 tab DAILY ORAL 07/02/17 09:00 07/16/17 08:59 TAMMIE MARY Jul 01, 2017 16:42
--- NOTE | 2017-07-01 19:37 | General Progress Note ---
Assessment/Plan Status: stable Assessment/Plan ASSESSMENT/PLAN # Anemia 2/2 HIV, watch counts, transfuse if hgb below 7 --> hemoglobin has been >7 --> blood transfusion not required today -->Low folate level, continue PO folate # Anemia 2/2 folic acid deficiency --> on folate p.o. --> Monitor levels. # Leukopenia 2/2 HIV --> unfortunately has refused bone marrow biopsy, have explained him the risks and of potentially missing a diagnosis such as lymphoma --> bone marrow biopsy completed 06/18/17 and preliminary is negative, --> final results of bone marrow biopsy completed today 06/23, --> pathology revealing neg afb strains, neg granuloma, neg lymphoma, increased iron storages --> Has resolved. # HIV with very low CD4 count --> vl is high # AFB + for Mycobacterium avium. To be confirmed with bone marrow bx 06/17/17 --> on abx for disseminated MAC --> Negative pathology # MSSA PNA # Interstitial lung disease --> may require lung biopsy # acute hypoxemic RF # severe protein calorie malnutrition # diarrhea, better. C. diff negative. GI following # alcohol dependence # depression Subjective Date patient seen: Jul 01, 2017 Constitutional: Denies: no symptoms, chills, diaphoresis, fever, malaise, weakness, other HEENT: Denies: no symptoms, eye pain, blurred vision, tearing, double vision, ear pain, ear discharge, nose pain, nose congestion, throat pain, throat swelling, mouth pain, mouth swelling, other Cardiovascular: Denies: no symptoms, chest pain, edema, irregular heart rate, lightheadedness, palpitations, syncope, other Respiratory: Denies: no symptoms, cough, orthopnea, shortness of breath, SOB with excertion, SOB at rest, sputum, stridor, wheezing, other Gastrointestinal/Abdominal: Denies: no symptoms, abdomen distended, abdominal pain, black stools, tarry stools, blood in stool, constipated, diarrhea, difficulty swallowing, nausea, poor appetite, poor fluid intake, rectal bleeding , vomiting, other Genitourinary: Denies: no symptoms, burning, discharge, frequency, flank pain, hematuria, incontinence, pain, urgency, other Allergies: Coded Allergies: No Known Allergies (Unverified , 05/23/17) Subjective No fever or chills. No new events overnight. Objective Last 24 Hour Vital Signs Date Time Temp Pulse Resp B/P (MAP) Pulse Ox O2 Delivery O2 Flow Rate FiO2 07/01/17 16:00 98.1 95 20 118/76 98 07/01/17 11:28 97.6 102 19 108/72 99 07/01/17 08:28 97.7 88 20 130/80 88 07/01/17 04:00 98.2 84 20 120/77 100 07/01/17 00:00 97.9 90 20 113/73 99 06/30/17 20:00 98.0 98 21 130/87 100 Intake and Output 06/30/17 07/01/17 19:00 07:00 Intake Total 2180 ml Output Total 2900 ml 1200 ml Balance -720 ml -1200 ml Intake Oral 2180 ml Output Urine Total 2900 ml 1200 ml # Voids 4 # Bowel Movements 1 1 Height (Feet): 5 Height (Inches): 10.00 Weight (Pounds): 90 General Appearance: no apparent distress Abdomen: non tender, soft Skin: warm/dry Nikhil Woodward Jul 01, 2017 19:37
[2017-07-01 20:06] VITALS: BP 117/73
--- NOTE | 2017-07-01 23:50 | Cardiology Progress Note ---
Assessment/Plan Assessment/Plan 1. Sinus tachycardia, persistent, continue Bystolic, LVEF is approximately 50%. 2. Small pericardial effusion, stable 3. Hypotension, resolved, due to sepsis. 4. Moderate pulmonary HTN, could be due to HIV disease. 5. Chronic diastolic CHF, may consider low dose diuretics. Subjective Subjective No cardiac issues. Denies chest pain or SOB. Objective Last 24 Hour Vital Signs Date Time Temp Pulse Resp B/P (MAP) Pulse Ox O2 Delivery O2 Flow Rate FiO2 07/01/17 20:06 98.1 106 20 117/73 99 07/01/17 16:00 98.1 95 20 118/76 98 07/01/17 11:28 97.6 102 19 108/72 99 07/01/17 08:28 97.7 88 20 130/80 88 07/01/17 04:00 98.2 84 20 120/77 100 07/01/17 00:00 97.9 90 20 113/73 99 Intake and Output 06/30/17 07/01/17 19:00 07:00 Intake Total 2180 ml Output Total 2900 ml 1200 ml Balance -720 ml -1200 ml Intake Oral 2180 ml Output Urine Total 2900 ml 1200 ml # Voids 4 # Bowel Movements 1 1 2D Echo: LVEF 50%, Mild AR, Grade II pseudo-normal LV physiology, RVSP 19 mmHg Objective GENERAL: No acute respiratory distress HEENT: Atraumatic, normocephalic, PERRLA, EOMI. NECK: JVP < 5 cm, no carotid bruit. LUNGS: Decreased breath sounds. CARDIOVASCULAR: Regular rate rhythm, tachycardic, normal S1S2, no murmurs, gallops or rubs. ABDOMEN: Soft, nontender, and nondistended. EXTREMITIES: 1+ B/L edema. VIET SCHROEDER Jul 01, 2017 23:50
[2017-07-02] VITALS: BP 124/75
[2017-07-02 04:00] VITALS: BP 130/78
[2017-07-02 08:00] VITALS: BP 121/71
[2017-07-02] MEDS: Magnesium Oxide 400mg tab ORAL SCH ×3 (08:07→17:53)
[2017-07-02] MEDS: Phospha 250 Neutral tab ORAL SCH ×3 (08:08→17:53)
[2017-07-02] MEDS: Rifabutin 150mg cap ORAL SCH (08:08)
[2017-07-02] MEDS: Azithromycin 600mg Tab ORAL SCH (08:08)
[2017-07-02] MEDS: Dolutegravir Sodium 50mg tab ORAL SCH (08:09)
[2017-07-02] MEDS: Lactulose 10gm/15ml UDC ORAL SCH ×3 (08:10→17:21)
[2017-07-02] MEDS: Docusate 100mg cap ORAL SCH ×2 (08:10→17:22)
[2017-07-02] MEDS: Heparin 5000 units/ml inj SUBQ SCH ×2 (08:10→21:05)
[2017-07-02] MEDS: Sodium Chloride 1gm Tab ORAL SCH ×3 (08:10→17:22)
[2017-07-02] MEDS ORDERED: Bactrim-DS 1 tab ORAL SCH ×2 (09:00)
--- NOTE | 2017-07-02 11:55 | GI Progress Note ---
Assessment/Plan Problems: (1) Generalized weakness ICD Codes: R53.1 - Weakness SNOMED: 63769470 (2) Anemia ICD Codes: D64.9 - Anemia, unspecified SNOMED: 516605969 (3) Severe protein-calorie malnutrition ICD Codes: E43 - Unspecified severe protein-calorie malnutrition SNOMED: 147891703 (4) Atypical pneumonia ICD Codes: J18.9 - Pneumonia, unspecified organism SNOMED: 460089529 (5) Protein calorie malnutrition ICD Codes: E46 - Unspecified protein-calorie malnutrition SNOMED: 356403351 Qualifiers: Qualified Codes: E44.0 - Moderate protein-calorie malnutrition (6) Diarrhea ICD Codes: R19.7 - Diarrhea, unspecified SNOMED: 87043889 Qualifiers: Qualified Codes: R19.7 - Diarrhea, unspecified Status: stable, progressing Status Narrative Discussed with Dr. Gamez. Assessment/Plan CT chest reviewed. cdiff negative iron levels unremarkable HIV positive airborne r/o TB >> negative KUB r/o chronic pancreatitis >> unremarkable OB stool r/o GI bleed >> negative Tissue Transglutaminase IgA r/o celiac >> negative Failure to thrive anorexia anemia - needs repeat H&H PNA MAC infection Diarrhea vs constipation fu ID, oncology recs regular diet, tolerating cont bowel regime monitor H&H, prn transfusions bowel regime ppi folate PO PT/OT evaluation H2B fu labs Subjective Gastrointestinal/Abdominal: Reports: no symptoms Objective Last 24 Hour Vital Signs Date Time Temp Pulse Resp B/P (MAP) Pulse Ox O2 Delivery O2 Flow Rate FiO2 07/02/17 08:00 97.7 91 20 121/71 97 07/02/17 04:00 98 Room Air 07/02/17 04:00 97.9 91 20 130/78 98 07/02/17 00:00 98 Room Air 07/02/17 00:00 97.9 93 20 124/75 98 07/01/17 20:06 98.1 106 20 117/73 99 07/01/17 20:00 98 Room Air 07/01/17 16:00 98.1 95 20 118/76 98 Intake and Output 07/01/17 07/02/17 19:00 07:00 Intake Total 880 ml 250 ml Output Total 500 ml 1500 ml Balance 380 ml -1250 ml Intake Oral 880 ml 250 ml Output Urine Total 500 ml 1500 ml # Voids 3 # Bowel Movements 1 Height (Feet): 5 Height (Inches): 10.00 Weight (Pounds): 90 General Appearance: WD/WN, no apparent distress, alert, thin Cardiovascular: normal rate Respiratory/Chest: normal breath sounds, no respiratory distress Abdominal Exam: normal bowel sounds, non tender, soft Extremities: normal range of motion, non-tender Alyssa Felix N.P. Jul 02, 2017 11:55
[2017-07-02 12:00] VITALS: BP 120/78
[2017-07-02 16:14] VITALS: BP 134/81
--- NOTE | 2017-07-02 16:24 | Pulmonology Progress Note ---
Assessment/Plan Problems: (1) Atypical pneumonia (2) Severe protein-calorie malnutrition (3) Interstitial lung disease (4) Diarrhea Assessment/Plan improving Continue MAC treatment Will need snif placement getting stronger, doesn't want any blood transfusion dc planning in process Subjective Allergies: Coded Allergies: No Known Allergies (Unverified , 05/23/17) Objective Last 24 Hour Vital Signs Date Time Temp Pulse Resp B/P (MAP) Pulse Ox O2 Delivery O2 Flow Rate FiO2 07/02/17 16:14 97.5 94 19 134/81 100 07/02/17 12:00 98.2 91 20 120/78 98 07/02/17 08:00 97.7 91 20 121/71 97 07/02/17 04:00 98 Room Air 07/02/17 04:00 97.9 91 20 130/78 98 07/02/17 00:00 98 Room Air 07/02/17 00:00 97.9 93 20 124/75 98 07/01/17 20:06 98.1 106 20 117/73 99 07/01/17 20:00 98 Room Air Intake and Output 07/01/17 07/02/17 19:00 07:00 Intake Total 880 ml 250 ml Output Total 500 ml 1500 ml Balance 380 ml -1250 ml Intake Oral 880 ml 250 ml Output Urine Total 500 ml 1500 ml # Voids 3 # Bowel Movements 1 Objective General Appearance: WD/WN HEENT: normocephalic, atraumatic Respiratory/Chest: chest wall non-tender, lungs clear Cardiovascular: normal peripheral pulses, normal rate Abdomen: normal bowel sounds, soft, non tender Genitourinary: normal external genitalia Extremities: no cyanosis 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/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: 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, no motor/sensory deficits Lymphatic: no neck adenopathy Current Medications Medications (Trade) Dose Ordered Sig/Anna Route PRN Reason Start Time Stop Time Status Last Admin Dose Admin Acetaminophen (Tylenol) 650 mg Q4H PRN ORAL Mild Pain/Temp > 100.5 06/28/17 10:15 07/28/17 10:14 06/28/17 10:32 Albuterol/ Ipratropium (Albuterol/ Ipratropium) 3 ml Q6HRT HHN 06/11/17 13:00 06/16/17 23:59 06/15/17 23:54 Azithromycin (Zithromax) 600 mg DAILY ORAL 06/20/17 13:00 07/25/17 12:59 07/02/17 08:08 Docusate Sodium (Colace) 100 mg TWICE A DAY ORAL 06/08/17 18:00 07/08/17 17:59 06/11/17 10:03 Dolutegravir Sodium (Tivicay) 50 mg DAILY ORAL 06/19/17 09:00 07/19/17 08:59 07/02/17 08:09 Emtricitabine/ Tenofovir (Truvada 200/ 300mg) 1 tab DAILY ORAL 06/19/17 11:00 07/19/17 10:59 07/02/17 08:08 Ethambutol HCl (Myambutol) 600 mg DAILY ORAL 06/12/17 14:45 07/12/17 14:44 07/02/17 08:08 Famotidine (Pepcid) 20 mg QHS ORAL 06/23/17 21:00 07/23/17 20:59 07/01/17 20:29 Heparin Sodium (Porcine) (Heparin 5000 units/ml) 5,000 units EVERY 12 HOURS SUBQ 06/23/17 09:00 07/23/17 08:59 07/01/17 20:30 Lactulose (Cephulac) 10 gm THREE TIMES A DAY ORAL 06/08/17 13:00 07/08/17 12:59 06/11/17 10:05 Magnesium Oxide (Mag-Ox 400mg) 500 mg THREE TIMES A DAY ORAL 06/12/17 19:30 07/12/17 19:29 07/02/17 13:34 Nebivolol (Bystolic) 10 mg DAILY ORAL 07/01/17 09:00 07/31/17 08:59 07/02/17 08:10 Phosphorus (Phospha 250 Neutral) 500 mg THREE TIMES A DAY ORAL 06/26/17 13:00 07/26/17 12:59 07/02/17 13:34 Prednisone (predniSONE) 30 mg DAILY ORAL 07/03/17 09:00 08/02/17 08:59 Rifabutin (Mycobutin) 300 mg DAILY ORAL 06/12/17 14:45 07/12/17 14:44 07/02/17 08:08 Sodium Chloride (NaCl) 1 gm THREE TIMES A DAY ORAL 06/21/17 09:00 2/6/18 08:59 06/30/17 17:45 Trimethoprim/ Sulfamethoxazole (Bactrim-DS) 1 tab DAILY ORAL 07/02/17 09:00 07/16/17 08:59 07/02/17 08:15 TAMMIE MARY Jul 02, 2017 16:24
[2017-07-02] MEDS ORDERED: BACTRIM DOUBLE S1 E1 ORAL (19:42)
[2017-07-02] MEDS ORDERED: RIFABUTIN150 MG PO (19:42)
[2017-07-02] MEDS ORDERED: ETHAMBUTOL HCL400 MG PO (19:43)
[2017-07-02] MEDS ORDERED: TIVICAY50 MG ORAL (19:43)
[2017-07-02] MEDS ORDERED: TRUVADA1 TAB ORAL (19:43)
[2017-07-02] MEDS ORDERED: AZITHROMYCIN500 MG ORAL (19:44)
[2017-07-02 20:00] VITALS: BP 124/85
--- NOTE | 2017-07-02 20:44 | Infectious Diseases Prog Note ---
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 . Sp Cx : MSSA SP Rx - s/p Bronchoscopy 06/10: friable mucosa, mild mucoid secretions; cx normal [place] -BAL cytology: rare atypical cells. Neg GMS and PCP stain CT of Abd /Bilateral pulmonary alveolar infiltrates consistent with pneumonia.- patient not hypoxic, not febrile- lower suspicion PCP; PCP DFA neg AFBx 3 : Neg ( 3rd from 05/26 not in EMR ) now AFB Cx 06/16 05/25 : +MAC; MTB PCR : Neg T Spot : neg Crytpo and blastomycosis: JOHANNA Neg ; RF + histo ab, Cocci ab : neg CT: Extensive interstitial and airspace parenchymal disease, and honeycomb appearance of much of the lower lobe and right middle lobe interstitial component, HIV/AIDS: first test negative repeat, repeat +; VL 973,150; CD4 unable to be calculated due to low absolute lymphocyte count -repeat CD4 p -HIV genotype: no resistance identified on RT or PI -Hep a immune -Hep b not immune, neg hep C -RPR neg -GC/CL neg - HLA B27 + Chronic diarrhea resolved, now constipated Stool for ova and parasite ( ? sent ) stool Cx : neg ? pancreatic insufficiency due to chronic alcohol abuse. also possibly due to disseminated MAC Elevated ESR , CRP and RF JOHANNA : neg Leukopenia/anemia Anemia and leukopenia PLAN: -Continue tx for suspect disseminated MAC with Azithromycin 600mg qd, Rifabutin 300mg qd and Ethambutol 600mg qd #18 awaiting final AFB bone marrow cx- decision to continue tx if cultures negative up to his new to be outpatient HIV provider as bone marrow biopsy was negative for disseminated MAC -continue Bactrim DS 1 tab qd for PCP ppx - Continue Truvada and Dolutegravir ( started 06/19 ) -f/u BAL cx (fungal, AFB), -f/u repeat CD4 as lymphocyte count improving -f/u AFB bcx (never collected; reordered 06/22 was cancelled ) -for bone marrow biopsy final cx - director case consulted to start working on HIV clinic to continue HIV and MAC to be set up prior to discharge; risk of readmission if not follow up with a HIV provider upon discharge. -pending discharge to [facility] 06/15 Bactrim high dose #4 06/05 SP Ancef d# 10 / 10 05/30 SP Zithromax d# 5 / 5 06/01 SP ( refusing) Flagyl d# 46 05/27 SP vancomycin, cefepime d# 5, Monitor CBC/CMP f/u Fungal blood Cx Subjective Constitutional: Denies: no symptoms, fever, chills, fatigue, anorexia, drenching sweats, other Allergies: Coded Allergies: No Known Allergies (Unverified , 05/23/17) Subjective afebrile Objective Vital Signs Last 24 Hour Vital Signs Date Time Temp Pulse Resp B/P (MAP) Pulse Ox O2 Delivery O2 Flow Rate FiO2 07/02/17 20:00 97.5 105 20 124/85 97 07/02/17 16:14 97.5 94 19 134/81 100 07/02/17 12:00 98.2 91 20 120/78 98 07/02/17 08:00 97.7 91 20 121/71 97 07/02/17 04:00 98 Room Air 07/02/17 04:00 97.9 91 20 130/78 98 07/02/17 00:00 98 Room Air 07/02/17 00:00 97.9 93 20 124/75 98 Height (Feet): 5 Height (Inches): 10.00 Weight (Pounds): 90 HEENT: anicteric Respiratory/Chest: no accessory muscle use Abdomen: non distended Current Medications Medications (Trade) Dose Ordered Sig/Anna Route PRN Reason Start Time Stop Time Status Last Admin Dose Admin Acetaminophen (Tylenol) 650 mg Q4H PRN ORAL Mild Pain/Temp > 100.5 06/28/17 10:15 07/28/17 10:14 06/28/17 10:32 Albuterol/ Ipratropium (Albuterol/ Ipratropium) 3 ml Q6HRT HHN 06/11/17 13:00 06/16/17 23:59 06/15/17 23:54 Azithromycin (Zithromax) 600 mg DAILY ORAL 06/20/17 13:00 07/25/17 12:59 07/02/17 08:08 Docusate Sodium (Colace) 100 mg TWICE A DAY ORAL 06/08/17 18:00 07/08/17 17:59 06/11/17 10:03 Dolutegravir Sodium (Tivicay) 50 mg DAILY ORAL 06/19/17 09:00 07/19/17 08:59 07/02/17 08:09 Emtricitabine/ Tenofovir (Truvada 200/ 300mg) 1 tab DAILY ORAL 06/19/17 11:00 07/19/17 10:59 07/02/17 08:08 Ethambutol HCl (Myambutol) 600 mg DAILY ORAL 06/12/17 14:45 07/12/17 14:44 07/02/17 08:08 Famotidine (Pepcid) 20 mg QHS ORAL 06/23/17 21:00 07/23/17 20:59 07/01/17 20:29 Heparin Sodium (Porcine) (Heparin 5000 units/ml) 5,000 units EVERY 12 HOURS SUBQ 06/23/17 09:00 07/23/17 08:59 07/01/17 20:30 Lactulose (Cephulac) 10 gm THREE TIMES A DAY ORAL 06/08/17 13:00 07/08/17 12:59 06/11/17 10:05 Magnesium Oxide (Mag-Ox 400mg) 500 mg THREE TIMES A DAY ORAL 06/12/17 19:30 07/12/17 19:29 07/02/17 17:53 Nebivolol (Bystolic) 10 mg DAILY ORAL 07/01/17 09:00 07/31/17 08:59 07/02/17 08:10 Phosphorus (Phospha 250 Neutral) 500 mg THREE TIMES A DAY ORAL 06/26/17 13:00 07/26/17 12:59 07/02/17 17:53 Prednisone (predniSONE) 30 mg DAILY ORAL 07/03/17 09:00 08/02/17 08:59 Rifabutin (Mycobutin) 300 mg DAILY ORAL 06/12/17 14:45 07/12/17 14:44 07/02/17 08:08 Sodium Chloride (NaCl) 1 gm THREE TIMES A DAY ORAL 06/21/17 09:00 07/21/17 08:59 06/30/17 17:45 Trimethoprim/ Sulfamethoxazole (Bactrim-DS) 1 tab DAILY ORAL 07/02/17 09:00 07/16/17 08:59 07/02/17 08:15 AMARIS BRIGGS M.D. Jul 02, 2017 20:44
--- NOTE | 2017-07-02 22:42 | General Progress Note ---
Assessment/Plan Status: stable Assessment/Plan ASSESSMENT/PLAN # Anemia 2/2 HIV, watch counts, transfuse if hgb below 7 --> hemoglobin has been >7 --> blood transfusion not required unless below goal or symptomatic -->Low folate level, continue PO folate # Anemia 2/2 folic acid deficiency --> on folate p.o. --> Monitor levels. # Leukopenia 2/2 HIV --> unfortunately has refused bone marrow biopsy, have explained him the risks and of potentially missing a diagnosis such as lymphoma --> bone marrow biopsy completed 06/18/17 and preliminary is negative, --> final results of bone marrow biopsy completed today 06/23, --> pathology revealing neg afb strains, neg granuloma, neg lymphoma, increased iron storages --> Has resolved. # HIV with very low CD4 count --> vl is high # AFB + for Mycobacterium avium. To be confirmed with bone marrow bx 06/17/17 --> on abx for disseminated MAC --> Negative pathology # MSSA PNA # Interstitial lung disease --> may require lung biopsy # acute hypoxemic RF # severe protein calorie malnutrition # diarrhea, better. C. diff negative. GI following # alcohol dependence # depression Subjective Date patient seen: Jul 02, 2017 Constitutional: Denies: no symptoms, chills, diaphoresis, fever, malaise, weakness, other HEENT: Denies: no symptoms, eye pain, blurred vision, tearing, double vision, ear pain, ear discharge, nose pain, nose congestion, throat pain, throat swelling, mouth pain, mouth swelling, other Cardiovascular: Denies: no symptoms, chest pain, edema, irregular heart rate, lightheadedness, palpitations, syncope, other Respiratory: Denies: no symptoms, cough, orthopnea, shortness of breath, SOB with excertion, SOB at rest, sputum, stridor, wheezing, other Gastrointestinal/Abdominal: Denies: no symptoms, abdomen distended, abdominal pain, black stools, tarry stools, blood in stool, constipated, diarrhea, difficulty swallowing, nausea, poor appetite, poor fluid intake, rectal bleeding , vomiting, other Genitourinary: Denies: no symptoms, burning, discharge, frequency, flank pain, hematuria, incontinence, pain, urgency, other Allergies: Coded Allergies: No Known Allergies (Unverified , 05/23/17) Subjective Awaiting placement. No major events. H/H stable. Objective Last 24 Hour Vital Signs Date Time Temp Pulse Resp B/P (MAP) Pulse Ox O2 Delivery O2 Flow Rate FiO2 07/02/17 20:00 97.5 105 20 124/85 97 07/02/17 16:14 97.5 94 19 134/81 100 07/02/17 12:00 98.2 91 20 120/78 98 07/02/17 08:00 97.7 91 20 121/71 97 07/02/17 04:00 98 Room Air 07/02/17 04:00 97.9 91 20 130/78 98 07/02/17 00:00 98 Room Air 07/02/17 00:00 97.9 93 20 124/75 98 Intake and Output 07/01/17 07/02/17 19:00 07:00 Intake Total 880 ml 250 ml Output Total 500 ml 1500 ml Balance 380 ml -1250 ml Intake Oral 880 ml 250 ml Output Urine Total 500 ml 1500 ml # Voids 3 # Bowel Movements 1 Height (Feet): 5 Height (Inches): 10.00 Weight (Pounds): 90 General Appearance: no apparent distress Cardiovascular: regular rhythm Respiratory/Chest: lungs clear, normal breath sounds Abdomen: soft Nikhil Woodward Jul 02, 2017 22:42
--- NOTE | 2017-07-02 23:30 | Cardiology Progress Note ---
Assessment/Plan Assessment/Plan 1. Sinus tachycardia, continue Bystolic, LVEF is approximately 50%. 2. Small pericardial effusion, stable 3. Hypotension, resolved, due to sepsis. 4. Moderate pulmonary HTN, could be due to HIV disease. 5. Chronic diastolic CHF, may consider low dose diuretics. Subjective Subjective Not in the telemetry unit. Denies chest pain or SOB. Objective Last 24 Hour Vital Signs Date Time Temp Pulse Resp B/P (MAP) Pulse Ox O2 Delivery O2 Flow Rate FiO2 07/02/17 20:00 97.5 105 20 124/85 97 07/02/17 16:14 97.5 94 19 134/81 100 07/02/17 12:00 98.2 91 20 120/78 98 07/02/17 08:00 97.7 91 20 121/71 97 07/02/17 04:00 98 Room Air 07/02/17 04:00 97.9 91 20 130/78 98 07/02/17 00:00 98 Room Air 07/02/17 00:00 97.9 93 20 124/75 98 Intake and Output 07/01/17 07/02/17 19:00 07:00 Intake Total 880 ml 250 ml Output Total 500 ml 1500 ml Balance 380 ml -1250 ml Intake Oral 880 ml 250 ml Output Urine Total 500 ml 1500 ml # Voids 3 # Bowel Movements 1 2D Echo: LVEF 50%, Mild AR, Grade II pseudo-normal LV physiology, RVSP 19 mmHg Objective GENERAL: No acute respiratory distress HEENT: Atraumatic, normocephalic, PERRLA, EOMI. NECK: JVP < 5 cm, no carotid bruit. LUNGS: Decreased breath sounds. CARDIOVASCULAR: Regular rate rhythm, tachycardic, normal S1S2, no murmurs, gallops or rubs. ABDOMEN: Soft, nontender, and nondistended. EXTREMITIES: 1+ B/L edema. VIET SCHROEDER Jul 02, 2017 23:30
[2017-07-03] VITALS: BP 128/81
[2017-07-03 04:00] VITALS: BP 130/76
--- NOTE | 2017-07-06 13:46 | Discharge Summary ---
Discharge Summary Hospital Course Date of Admission May 23, 2017 at 11:47 Date of Discharge Jul 03, 2017 at 06:51 Admitting Diagnosis Pulmonary Infiltrates HPI Antonino Koenig is a 42 year old male who was admitted on May 23, 2017 at 11:47 for Pulmonary Infiltrates,Pneumonia Hospital Course dc summary #[id number] Discharge Medications Continued Medications: Azithromycin (Azithromycin) 500 Mg Tablet 600 MG ORAL DAILY, TAB Dolutegravir Sodium (Tivicay) 50 Mg Tablet 50 MG ORAL DAILY, TAB Emtricitabine/Tenofovir (Truvada 200 mg-300 mg Tablet) 1 Each Tablet 1 TAB ORAL DAILY, TAB Ethambutol Hcl (Ethambutol Hcl) 400 Mg Tablet 600 MG PO DAILY, TAB Rifabutin (Rifabutin) 150 Mg Capsule 300 MG PO DAILY, CAP Trimethoprim/Sulfamethoxazole (Bactrim 400-80 mg Tablet) 1 Each Tablet 1 TAB ORAL DAILY, TAB Discharge Condition Upon Discharge: stable Discharge Disposition Patient was discharged to HIV housing/Clinic Discharge Diagnoses: Bob (ChemaAnaly smith NP Jul 06, 2017 13:46
--- NOTE | 2017-07-06 22:30 | Discharge Summary 2 SIG ---
DATE OF ADMISSION: 05/23/2017 DATE OF DISCHARGE: 07/03/2017 REASON FOR ADMISSION: 42-year-old male without significant past medical history presented with weight loss, cough, diarrhea and generalized weakness started 3 weeks ago. The patient reported watery diarrhea. He lost 7 pounds at that time. He had mildly productive cough with greyish sputum. No hemoptysis. The patient reported heavily drinking prior to illness, but stopped about 2 weeks ago. The patient had an extensive bilateral interstitial infiltrates on chest x-ray and was placed on isolation by ED doctor. Afebrile. Pulse oximetry was stable on room air. No leukocytosis. Sodium -130, potassium -3.5. LFT within normal limits. AST slightly elevated - 44. CRP - 13.2. Troponin negative. LDH elevated -466. ProBNP -141. EKG showed normal sinus rhythm. No acute ischemic changes. The patient was admitted with atypical pneumonia, severe protein-calorie malnutrition, interstitial lung disease, and diarrhea. HOSPITAL COURSE: The patient was admitted to Med/Surg floor. The patient was started on empiric antibiotics. Supplemental oxygen provided as needed to keep saturation above 92%. Pulmonary toilet provided. The patient was followed up with chest x-ray. ID and GI consults were requested. Initial HIV test was negative. Sputum culture positive for Staph aureus. Initial acid-fast bacillus smear was negative. Stool for C. difficile was negative. Blood cultures were negative. Urine cultures were negative. The patient was on treatment for methicillin sensitive Staph aureus pneumonia. The patient continued to have diarrhea despite being placed on lactose-free diet. The patient's presentation was highly suspicious for HIV, so despite the negative first testing, second test for HIV screening was ordered and at this time it was positive with a very high viral load. Unable to calculate CD4 count. Absolute lymphocytes only 0.2. The patient was continued to be in respiratory failure requiring venturi mask. Initial CT chest revealed extensive interstitial and airspace parenchymal disease and honeycomb appearance of the lower lobe and right middle lobe, raising possibility of significant chronic component of interstitial fibrosis. The patient was on the steroids. Followup CT of the chest revealed diffuse and extensive interstitial changes, honeycombing consistent with chronic interstitial fibrosis. The patient was on respiratory isolation. Supplemental oxygen provided as needed to keep saturation above 92%. Pulmonary toilet provided. AFB smear and culture x3 collected. Two smears were negative, but one culture was positive for MAC , MTB by PCR was negative, and Tspot was negative for AFB. PPD test was negative. MTB PCR was negative. Sputum culture revealed Staph aureus. The patient status post treatment for pneumonia with Staph aureus. ID closely followed. The patient was started on steroids and clinically showed some improvement with the steroids. The patient had bronchoscopy on 06/12/2018 , cytology did not reveal any fungal organism, just showed few atypical cells. Venous duplex of bilateral lower extremities was negative. Trade Analyst closely followed along with GI specialist. Nutritional recommendation were implemented to support nutritional status. Hemoglobin and hematocrit were closely monitored with a goal to keep hemoglobin above 7. Iron levels were unremarkable. Anemia workup was suggestive of anemia of chronic disease and anemia of folate deficiency. Folate replacement was started. Counts were closely monitored. The patient also had leukopenia secondary to HIV. The patient had a bone marrow biopsy , which was negative. Pathology was negative as well. Pathology of the bone marrow revealed normal cellular marrow with trilineage hematopoiesis, increased iron stores. No evidence of other dysplasia, granuloma , lymphoma, or carcinoma. Special stains for AFB and immunostain for TB were4 negative. Peripheral blood smear showed normocytic normochromic anemia and platelet count clumping. Stool for C. difficile and stool culture were negative. KUB was unremarkable. Stool for OB was negative. Tissue transglutaminase IgA to rule out celiac disease was negative. The patient was on lactose-free diet. Diarrhea eventually resolved. The patient later had constipation. Bowel regimen was instituted. The patient was on PPI. The patient was able to tolerate diet. The patient was working with physical and occupational therapists. Hot Box Checker closely followed. Sinus tachycardia initially present was controlled with Bystolic. Echocardiogram revealed preserved ejection fraction of 50% to 55%, right ventricular systolic pressure of 47 consistent with moderate pulmonary hypertension, probably due to the HIV disease. It also showed small pericardial effusion, appeared to be stable at this time as per spa consultant. Venous duplex of bilateral lower extremities was negative. Initial hypotension resolved, likely secondary to infectious process. The patient had moderate pulmonary hypertension, likely secondary to HIV disease and chronic diastolic congestive heart failure. Cardio recommended to consider low dose diuretic in future. Per ID recommendation, the patient initially was started on treatment for suspected disseminated MAC. Sputum for Pneumocystis carinii was negative. Bone marrow was negative for MAC. Per ID, however, given clinical presentation and MAC isolated from lung and HIV/AIDS status, ID decided to treat for disseminated MAC and awaiting final AFB culture from blood and bone marrow biopsy. The patient was started on ART therapy. HIV genotype revealed no resistance. Patient with hepatitis A immunity, no immunity for hepatitis B and negative for hepatitis C. RPR negative. Chlamydia and gonorrhea screen negative. HLA-B27 positive. Per ID specialist, awaiting for final AFB bone marrow culture. Decision to continue treatment if cultures negative will be up to his new outpatient HIV provider, as bone marrow biopsy was negative for disseminated MAC Clearance was obtained from the Department of Health. The patient was stable for transfer to HIV housing as arranged. Prescriptions provided. Follow up with primary medical doctor and HIV provider. DISCHARGE DIAGNOSIS: Suspected disseminated MAC infection MSSA PNA, s/p Rx Interstitial lung disease Acute hypoxemic RF requiring VM -resolved s/p bronchoscopy 06/10 s/p bone marrow biopsy 06/28 HIV disease, likely AIDS Moderate pulmonary HTN ( possibly due to HIV) Chronic diastolic CHF Small pericardial effusion ( stable) Anemia Severe protein calorie malnutrition Diarrhea -resolved Alcohol dependence Depression Hypo Mg DISCHARGE MEDICATIONS: See medications reconciliation list DISCHARGE INSTRUCTIONS: Patient was discharged to HIV housing. Follow up with HIV provider for further amangeemtn. Kobe Braun M.D. Analy Estevezrosendo) NDenisePDenise DR: MYRNA JOB#: [id number] CC: PRATIK
--- NOTE | 2017-07-24 14:45 | Procedure Note ---
DATE OF PROCEDURE: 06/10/2017 INDICATION: Infiltrates. PREOPERATIVE DIAGNOSIS: Lung infiltrates. POSTOPERATIVE DIAGNOSES: 1. Bilateral lung infiltrates. 2. Friable mucosa. 3. No active bleeding. 4. Mild mucoid secretions. 5. Normal endobronchial anatomy with a subsegmental bronchi. FINDINGS: As above. PROCEDURE: Bronchoscopy. ANESTHESIA: General endotracheal anesthesia. COMPLICATIONS: None. ESTIMATED BLOOD LOSS: None. DISPOSITION: Monitored bed. DRAINS: None. SURGEON: Pramod Cooley M.D. OPERATIVE DESCRIPTION: The patient was taken to the OR, identified as the patient. A time-out was done. Consent was obtained and verified. Anesthesia was obtained via general endotracheal intubation and anesthesia. Bronchoscope was advanced through the endotracheal tube into the trachea. Megha was sharp. Bilateral tracheobronchial tree was inspected. There was normal anatomy. There were no endobronchial lesions. Mild mucoid secretions were noted. There was friable mucosa, but no active bleeding. BAL was done of the bilateral lower lobes. The bronchoscope was withdrawn. The patient tolerated the procedure without difficulty. Pramod Cooley M.D. DR: MADELEINE JOB#: [id number] CC: PRATIK
== END 2017-07-03 06:51 | disposition home or self-care (01) | DRG 890 ==
LOC: EMR 09:54 → 4E 11:47 → EDBEDREQ 11:59 → 4E 06-19 23:22
PROC: 0B9J8ZX Drainage of Left Lower Lung Lobe, Via Natural or Artificial Opening Endoscopic, Diagnostic (ICD-10-PCS; 2017-06-10)
PROC: 0B9F8ZX Drainage of Right Lower Lung Lobe, Via Natural or Artificial Opening Endoscopic, Diagnostic (ICD-10-PCS; 2017-06-10)
PROC: 07DR3ZX Extraction of Iliac Bone Marrow, Percutaneous Approach, Diagnostic (ICD-10-PCS; principal; 2017-06-18)
DX: A31.0 Pulmonary mycobacterial infection (principal); B20 Human immunodeficiency virus [HIV] disease; J15.211 Pneumonia due to Methicillin susceptible Staphylococcus aureus; J96.01 Acute respiratory failure with hypoxia; E43 Unspecified severe protein-calorie malnutrition; A41.9 Sepsis, unspecified organism; J84.9 Interstitial pulmonary disease, unspecified; I31.3 Pericardial effusion (noninflammatory); Z68.1 Body mass index [BMI] 19.9 or less, adult; R19.7 Diarrhea, unspecified; F32.9 Major depressive disorder, single episode, unspecified; F10.20 Alcohol dependence, uncomplicated; F12.90 Cannabis use, unspecified, uncomplicated; Z72.0 Tobacco use; F39 Unspecified mood [affective] disorder; F60.9 Personality disorder, unspecified; D72.818 Other decreased white blood cell count; D64.9 Anemia, unspecified; R00.0 Tachycardia, unspecified; K86.89 Other specified diseases of pancreas; I27.20 Pulmonary hypertension, unspecified; I50.32 Chronic diastolic (congestive) heart failure; E86.1 Hypovolemia; E83.42 Hypomagnesemia; R62.7 Adult failure to thrive; K56.41 Fecal impaction; R76.8 Other specified abnormal immunological findings in serum
CPT/HCPCS: 36415; 36600; 70450; 71010; 71045; 71250; 71260; 74000; 74177; 76700; 80048; 80053; 80069; 80202; 80307; 80329; 81003; 82270; 82378; 82550; 82607; 82746; 82784; 82785; 82803; 83516; 83540; 83550; 83605; 83615; 83735; 83880; 84100; 84443; 84484; 85007; 85025; 85044; 85060; 85610; 85651; 85730; 86021; 86039; 86140; 86171; 86200; 86308; 86360; 86431; 86580; 86592; 86612; 86635; 86689; 86703; 86704; 86708; 86780; 86803; 86812; 87040; 87045; 87070; 87075; 87086; 87116; 87181; 87205; 87324; 87340; 87385; 87449; 87491; 87517; 87535; 87536; 87556; 87590; 90732; 93005; 93306; 93970; 94003; 94150; 94640; 94664; 94760; 99285; C9399; J2250; J7620; J8499

== ENCOUNTER 2019-04-06 19:47 | Emergency (ER) | payer MEDICAID ==
[~2019-04-06] VITALS: Ht 170.2 cm; Wt 59.0 kg
[~2019-04-06 19:47] MED LIST: AZITHROMYCIN500 MG ORAL; BACTRIM DOUBLE S1 E1 ORAL; ETHAMBUTOL HCL400 MG PO; RIFABUTIN150 MG PO; TIVICAY50 MG ORAL; TRUVADA1 TAB ORAL
--- NOTE | 2019-04-06 20:08 | NUR ---
ED Nurse Note: patient is not in the waiting room
--- NOTE | 2019-04-06 20:13 | NUR ---
ED Nurse Note: patient was called second time, he is not in the waiting room
[2019-04-06 20:30] VITALS: BP 133/90
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
[2019-04-06] MEDS ORDERED: IBUPROFEN600 MG ORAL (21:49)
[2019-04-06] MEDS ORDERED: ACETAMINOPHEN-1 EAC1 ORAL (21:49)
[2019-04-06 22:00] VITALS: BP 133/93
--- NOTE | 2019-04-06 22:00 | NUR ---
ER DISCHARGE NOTE: Patient is cleared to be discharged per ERMD, pt is aox4, on room air, with stable vital signs. pt was given dc and prescription instructions, pt was able to verbalize understanding, pt id band removed. pt is able to ambulate with steady gait. pt took all belongings.
--- NOTE | 2019-04-07 12:17 | Diagnostic Imaging Report ---
Clinical Indication:Pain, trauma Technique: 3 views of the right wrist Comparison: None Findings: There is a fracture of the midshaft radius, incompletely included on the available images, described on separate forearm radiograph report. There is an ulnar styloid fracture. No carpal or metacarpal fracture demonstrated. Impression: Positive for radial shaft and ulnar styloid fracture No evidence of carpal fracture
--- NOTE | 2019-04-07 12:26 | Diagnostic Imaging Report ---
Indications: Right forearm pain Technique: Two views of the right forearm Comparison: None Findings: There is a fracture of the midshaft radius. This is posteriorly displaced by just over one bone width. Fractures comminuted. It overrides by about 1 cm. There is an associated fracture of the ulnar styloid. Impression: Positive for midshaft radial and ulnar styloid fractures
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
== END 2019-04-06 22:00 | disposition home or self-care (01) ==
LOC: EMR 21:08
DX: S52.614A Nondisplaced fracture of right ulna styloid process, initial encounter for closed fracture (principal); Y09 Assault by unspecified means; Y92.410 Unspecified street and highway as the place of occurrence of the external cause
CPT/HCPCS: 29125; 73090; 73110; Z7502; 99283